=== PATIENT | male | born 1980 | race Caucasian/White ===

== ENCOUNTER 2023-04-12 13:37 | Outpatient (OUT) | payer BC, SELFPAY ==
--- NOTE | 2023-04-12 13:46 | XR_ITS ---
The [place] [id number] Patient Name: FAIZA LOZANO MRN: [id number] date: 1980 Sex: M Assigned Patient Location: RAD Current Patient Location: [facility] Accession/Order Number: [id number] Exam Date: 04/12/2023 14:20 Report Date: 04/12/2023 17:16 At the request of: DAYANA GONZALEZ Procedure: XR shoulder RT min 2V PROCEDURE: XR shoulder RT min 2V COMPARISON: None. HISTORY: Shoulder pain FINDINGS: BONES:No acute fracture or dislocation. Mild degenerative changes acromioclavicular joint with marginal osteophyte formation. Contour deformity of the mid to distal clavicle likely representing a remote healed fracture. The glenohumeral joint is intact SOFT TISSUES:Negative. No visible soft tissue swelling. EFFUSION:None visible. OTHER: Negative. XR/XR shoulder RT min 2V IMPRESSION: No acute abnormality Electronically authenticated by: BRENDA NGUYEN Date: 04/12/2023 17:16
--- NOTE | 2023-04-12 13:46 | XR_ITS ---
The [place] [id number] Patient Name: FAIZA LOZANO MRN: [id number] date: 1980 Sex: M Assigned Patient Location: RAD Current Patient Location: [facility] Accession/Order Number: [id number] Exam Date: 04/12/2023 14:20 Report Date: 04/12/2023 17:14 At the request of: DAYANA GONZALEZ Procedure: XR ankle RT min 3V PROCEDURE: XR ankle RT min 3V, XR foot RT min 3V COMPARISON: None. HISTORY: Ankle pain FINDINGS: BONES:No fracture, acute abnormality, or significant arthropathy. SOFT TISSUES:Negative. No visible soft tissue swelling. EFFUSION:None visible. OTHER: Negative. XR/XR ankle RT min 3V IMPRESSION: No acute abnormality of the ankle or foot Electronically authenticated by: BRENDA NGUYEN Date: 04/12/2023 17:14
--- NOTE | 2023-04-12 13:46 | XR_ITS ---
The [place] [id number] Patient Name: FAIZA LOZANO MRN: [id number] date: 1980 Sex: M Assigned Patient Location: [facility] Current Patient Location: [facility] Accession/Order Number: [id number] Exam Date: 04/12/2023 14:20 Report Date: 04/12/2023 17:20 At the request of: DAYANA GONZALEZ Procedure: XR thoracic spine 3V EXAMINATION: XR lumbar spine min 4V, XR cervical spine 5V, XR thoracic spine 3V HISTORY: Back pain COMPARISON: No relevant comparison available. FINDINGS: BONES: Normal alignment of the cervical, thoracic and lumbar spine with no acute fracture or spondylolisthesis. Minimal degenerative spondylosis. [id number] facet osteoarthropathy. 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 No significant disc height narrowing, subluxation, or endplate abnormality. PARASPINOUS: Negative. No paraspinous abnormality is seen. OTHER: Negative. XR/XR thoracic spine 3V IMPRESSION: Mild degenerative changes of the spine Electronically authenticated by: BRENDA NGUYEN Date: 04/12/2023 17:20
--- NOTE | 2023-04-12 13:47 | XR_ITS ---
The [place] [id number] Patient Name: FAIZA LOZANO MRN: [id number] date: 1980 Sex: M Assigned Patient Location: [facility] Current Patient Location: [facility] Accession/Order Number: [id number] Exam Date: 04/12/2023 14:20 Report Date: 04/12/2023 17:20 At the request of: DAYANA GONZALEZ Procedure: XR lumbar spine min 4V EXAMINATION: XR lumbar spine min 4V, XR cervical spine 5V, XR thoracic spine 3V HISTORY: Back pain COMPARISON: No relevant comparison available. FINDINGS: BONES: Normal alignment of the cervical, thoracic and lumbar spine with no acute fracture or spondylolisthesis. Minimal degenerative spondylosis. Kmro-[id number]-oazlbndg facet osteoarthropathy. 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 No significant disc height narrowing, subluxation, or endplate abnormality. PARASPINOUS: Negative. No paraspinous abnormality is seen. OTHER: Negative. XR/XR lumbar spine min 4V IMPRESSION: Mild degenerative changes of the spine Electronically authenticated by: BRENDA NGUYEN Date: 04/12/2023 17:20
--- NOTE | 2023-04-12 13:47 | XR_ITS ---
The [address] [address] Patient Name: FAIZA LOZANO MRN: [id number] date: 1980 Sex: M Assigned Patient Location: RAD Current Patient Location: [facility] Accession/Order Number: [id number] Exam Date: 04/12/2023 14:20 Report Date: 04/12/2023 17:14 At the request of: DAYANA GONZALEZ Procedure: XR foot RT min 3V PROCEDURE: XR ankle RT min 3V, XR foot RT min 3V COMPARISON: None. HISTORY: Ankle pain FINDINGS: BONES:No fracture, acute abnormality, or significant arthropathy. SOFT TISSUES:Negative. No visible soft tissue swelling. EFFUSION:None visible. OTHER: Negative. XR/XR foot RT min 3V IMPRESSION: No acute abnormality of the ankle or foot Electronically authenticated by: BRENDA NGUYEN Date: 04/12/2023 17:14
--- NOTE | 2023-04-12 13:47 | XR_ITS ---
The [place] [id number] Patient Name: FAIZA LOZANO MRN: [id number] date: 1980 Sex: M Assigned Patient Location: RAD Current Patient Location: [facility] Accession/Order Number: [id number] Exam Date: 04/12/2023 14:20 Report Date: 04/12/2023 17:18 At the request of: DAYANA GONZALEZ Procedure: XR wrist RT min 3V PROCEDURE: XR hand RT min 3V, XR wrist RT min 3V COMPARISON: None. HISTORY: Hand pain FINDINGS: BONES:No fracture, acute abnormality, or significant arthropathy. SOFT TISSUES:Negative. No visible soft tissue swelling. EFFUSION:None visible. OTHER: Negative. XR/XR wrist RT min 3V IMPRESSION: No acute abnormality of the wrist or hand Electronically authenticated by: BRENDA NGUYEN Date: 04/12/2023 17:18
--- NOTE | 2023-04-12 13:47 | XR_ITS ---
The [address] [address] Patient Name: FAIZA LOZANO MRN: [id number] date: 1980 Sex: M Assigned Patient Location: [facility] Current Patient Location: [facility] Accession/Order Number: [id number] Exam Date: 04/12/2023 14:20 Report Date: 04/12/2023 17:20 At the request of: DAYANA GONZALEZ Procedure: XR cervical spine 5V EXAMINATION: XR lumbar spine min 4V, XR cervical spine 5V, XR thoracic spine 3V HISTORY: Back pain COMPARISON: No relevant comparison available. FINDINGS: BONES: Normal alignment of the cervical, thoracic and lumbar spine with no acute fracture or spondylolisthesis. Minimal degenerative spondylosis. Pxre-[id number] facet osteoarthropathy. 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 No significant disc height narrowing, subluxation, or endplate abnormality. PARASPINOUS: Negative. No paraspinous abnormality is seen. OTHER: Negative. XR/XR cervical spine 5V IMPRESSION: Mild degenerative changes of the spine Electronically authenticated by: BRENDA NGUYEN Date: 04/12/2023 17:20
--- NOTE | 2023-04-12 13:47 | XR_ITS ---
The [address] [address] Patient Name: FAIZA LOZANO MRN: [id number] date: 1980 Sex: M Assigned Patient Location: RAD Current Patient Location: [facility] Accession/Order Number: [id number] Exam Date: 04/12/2023 14:20 Report Date: 04/12/2023 17:18 At the request of: DAYANA GONZALEZ Procedure: XR hand RT min 3V PROCEDURE: XR hand RT min 3V, XR wrist RT min 3V COMPARISON: None. HISTORY: Hand pain FINDINGS: BONES:No fracture, acute abnormality, or significant arthropathy. SOFT TISSUES:Negative. No visible soft tissue swelling. EFFUSION:None visible. OTHER: Negative. XR/XR hand RT min 3V IMPRESSION: No acute abnormality of the wrist or hand Electronically authenticated by: BRENDA NGUYEN Date: 04/12/2023 17:18
== END 2023-04-12 13:38 | disposition home or self-care (01) ==
LOC: RAD 13:40
PROVIDERS: Family Provider Family Medicine; PCP Nurse Practitioner; Visit Provider Nurse Practitioner
DX: M54.2 Cervicalgia (principal); M25.511 Pain in right shoulder; M25.571 Pain in right ankle and joints of right foot; M79.671 Pain in right foot; M25.531 Pain in right wrist
CPT/HCPCS: 72050; 72072; 72110; 73030; 73110; 73130; 73610; 73630

== ENCOUNTER 2023-04-13 14:40 | Outpatient (OUT) | payer BC, SELFPAY ==
[2023-04-13 15:43] LABS: Basophils Absolute Auto 0.1 10^3/uL (0.0-0.1); Basophils Percent Auto 0.7 % (0.2-2.0); Eosinophils Absolute Auto 0.3 10^3/uL (0.0-0.7); Eosinophils Percent Auto 3.6 % (0.9-7.0); Hematocrit 40.3 % (42.0-54.0); Hemoglobin 13.2 g/dL (14.0-18.0); Immature Granulocytes Abs Auto 0.02 10^3/uL (0.00-0.03); Immature Granulocytes Pct Auto 0.3 % (0.0-0.5); Lymphocytes Absolute Auto 1.2 10^3/uL (1.2-3.8); Lymphocytes Percent Auto 17.1 % (20.5-60.0); Mean Corpuscular HGB Conc 32.8 g/dL (29.9-35.2); Mean Corpuscular Hemoglobin 28.7 pg (25.9-34.0); Mean Corpuscular Volume 87.6 fL (80.0-94.0); Mean Platelet Volume 8.8 fL (9.5-13.5); Monocytes Absolute Auto 0.5 10^3/uL (0.3-0.8); Monocytes Percent Auto 7.7 % (1.7-12.0); Neutrophils Absolute Auto 4.8 10^3/uL (1.4-6.5); Neutrophils Percent Auto 70.6 % (43.0-75.0); Platelet Count 328 10^3/uL (150-450); Red Cell Distribution Width 12.6 % (11.0-15.0); White Blood Count 6.9 10^3/uL (4.0-11.0)
[2023-04-13 15:45] LABS: Bilirubin Urine NEGATIVE (NEGATIVE); Blood Urine NEGATIVE (NEGATIVE); Clarity Urine CLEAR (CLEAR); Color Urine LT. YELLOW (YELLOW); Glucose Urine UA NEGATIVE (NEGATIVE); Ketones Urine NEGATIVE (NEGATIVE); Leukocyte Esterase Urine NEGATIVE (NEGATIVE); Nitrite Urine NEGATIVE (NEGATIVE); Protein Urine NEGATIVE (NEG/TRACE); Urobilinogen Urine 0.2 EU/dL (0.2-1.0); pH Urine 5.5 (5.0-9.0)
[2023-04-13 15:57] LABS: Alanine Aminotransferase 25 U/L (16-63); Albumin Globulin Ratio 0.9; Albumin Level 3.5 g/dL (3.4-5.0); Alkaline Phosphatase 62 U/L (46-116); Anion Gap 10.4; Aspartate Amino Transferase 17 U/L (15-37); BUN Creatinine Ratio 14.4; Bacteria Urine NONE SEEN #/HPF (NONE SEEN); Bilirubin Total 0.7 mg/dL (0.2-1.0); Carbon Dioxide 28.4 mmol/L (21.0-32.0); Cast Seen? NONE SEEN #/LPF (NONE SEEN); Chloride 106 mmol/L (98-107); Chol HDL Ratio 3.2; Cholesterol 143 mg/dL (<=200); Crystals Seen? None Seen #/HPF (None Seen); Estimated GFR (African America >60 (>=60); Estimated GFR (Non-African Ame >60 (>=60); Glucose 96 mg/dL (74-106); HDL Cholesterol 44 mg/dL (40-60); Mucus Urine NONE SEEN (NONE SEEN); Potassium 3.8 mmol/L (3.5-5.1); RBC Urine 0-2 #/HPF (0-2); Sodium 141 mmol/L (136-145); Squamous Epithelial Cell Urine NONE SEEN #/LPF (NONE/RARE); Thyroid Stimulating Hormone 1.668 uIU/mL (0.358-3.740); Total Protein 7.5 g/dL (6.4-8.2); Triglycerides 95 mg/dL (<=150); Urine Culture Indicated NO; WBC Urine NONE SEEN #/HPF (NONE SEEN)
== END 2023-04-13 14:41 | disposition home or self-care (01) ==
LOC: LAB 14:41
PROVIDERS: Family Provider Family Medicine; PCP Nurse Practitioner; Visit Provider Nurse Practitioner
DX: Z00.00 Encounter for general adult medical examination without abnormal findings (principal)
CPT/HCPCS: 36415; 80053; 80061; 81001; 84443; 85025

== ENCOUNTER 2023-05-17 15:35 | Outpatient (OUT) | payer BC, SELFPAY ==
[2023-05-17 16:28] LABS: Estimated Average Glucose 94 mg/dL; Glycohemoglobin A1C 4.9 % (4.5-6.2)
[2023-05-17 16:33] LABS: Erythrocyte Sedimentation Rate 21 mm/hr (<=15)
[2023-05-19 11:09] LABS: C-Peptide, Serum 9.5 ng/mL (1.1-4.4); Insulin 66.8 uIU/mL (2.6-24.9)
== END 2023-05-17 15:36 | disposition home or self-care (01) ==
LOC: LAB 15:36
PROVIDERS: Family Provider Family Medicine; PCP Nurse Practitioner; Visit Provider Nurse Practitioner
DX: E16.2 Hypoglycemia, unspecified (principal); K50.90 Crohn's disease, unspecified, without complications; R19.7 Diarrhea, unspecified
CPT/HCPCS: 36415; 82533; 83036; 83525; 84681; 85652; 86258; 86364

== ENCOUNTER 2024-01-03 14:33 | Outpatient (OUT) | payer BC, SELFPAY ==
[2024-01-03 15:14] LABS: Basophils Absolute Auto 0.1 10^3/uL (0.0-0.1); Eosinophils Absolute Auto 0.3 10^3/uL (0.0-0.7); Eosinophils Percent Auto 4.8 % (0.9-7.0); Hematocrit 39.7 % (42.0-54.0); Immature Granulocytes Abs Auto 0.01 10^3/uL (0.00-0.03); Immature Granulocytes Pct Auto 0.2 % (0.0-0.5); Lymphocytes Absolute Auto 0.6 10^3/uL (1.2-3.8); Lymphocytes Percent Auto 11.2 % (20.5-60.0); Mean Corpuscular HGB Conc 32.7 g/dL (29.9-35.2); Mean Corpuscular Volume 88.6 fL (80.0-94.0); Mean Platelet Volume 8.7 fL (9.5-13.5); Monocytes Absolute Auto 0.3 10^3/uL (0.3-0.8); Monocytes Percent Auto 5.9 % (1.7-12.0); Neutrophils Percent Auto 76.9 % (43.0-75.0); Platelet Count 312 10^3/uL (150-450); Red Blood Count 4.48 10^6/uL (4.70-6.10); White Blood Count 5.3 10^3/uL (4.0-11.0)
[2024-01-03 15:36] LABS: Alanine Aminotransferase 16 U/L (16-63); Albumin Globulin Ratio 0.8; Albumin Level 3.1 g/dL (3.4-5.0); Alkaline Phosphatase 65 U/L (46-116); Anion Gap 12.8; Aspartate Amino Transferase 16 U/L (15-37); BUN Creatinine Ratio 11.6; Bilirubin Total 0.4 mg/dL (0.2-1.0); C Reactive Protein 0.69 mg/dL (<=0.50); Calcium 8.6 mg/dL (8.5-10.1); Carbon Dioxide 27.8 mmol/L (21.0-32.0); Chloride 107 mmol/L (98-107); Estimated GFR (African America >60 (>=60); Estimated GFR (Non-African Ame >60 (>=60); Glucose 93 mg/dL (74-106); Potassium 3.6 mmol/L (3.5-5.1); Sodium 144 mmol/L (136-145); Total Protein 7.1 g/dL (6.4-8.2)
[2024-01-04 05:08] LABS: HBsAg Screen Negative (Negative); Hep B Core Ab, Tot Negative (Negative); Hepatitis B Surf Ab Quant <3.1 mIU/mL (Immunity>9.9)
[2024-01-05 07:09] LABS: QuantiFERON-TB Gold Plus Negative (Negative)
== END 2024-01-03 14:34 | disposition home or self-care (01) ==
LOC: LAB 14:34
PROVIDERS: Family Provider Family Medicine; PCP Nurse Practitioner; Visit Provider Internal Medicine Gastroenterology
DX: R63.4 Abnormal weight loss (principal); R11.2 Nausea with vomiting, unspecified; Z87.19 Personal history of other diseases of the digestive system; R19.7 Diarrhea, unspecified
CPT/HCPCS: 36415; 80053; 85025; 86140; 86317; 86480; 86704; 87340

== ENCOUNTER 2024-01-05 15:47 | Outpatient (REF) | payer BC, SELFPAY ==
[2024-01-06 15:43] LABS: C. Difficile PCR NEGATIVE (NEGATIVE)
== END 2024-01-05 15:48 | disposition home or self-care (01) ==
LOC: LAB 15:47
PROVIDERS: Family Provider Family Medicine; PCP Nurse Practitioner; Visit Provider Internal Medicine Gastroenterology
DX: R63.4 Abnormal weight loss (principal); R11.2 Nausea with vomiting, unspecified; Z87.19 Personal history of other diseases of the digestive system; R19.7 Diarrhea, unspecified
CPT/HCPCS: 83993; 87045; 87046; 87427; 87493

== ENCOUNTER 2024-06-20 09:03 | Outpatient (OUT) | payer BC, SELFPAY ==
--- NOTE | 2024-06-20 09:08 | US_ITS ---
The [address] [address] Patient Name: FAIZA LOZANO MRN: [id number] date: 1980 Sex: M Assigned Patient Location: US Current Patient Location: [facility]MAIN Accession/Order Number: [id number] Exam Date: 06/20/2024 09:15 Report Date: 06/20/2024 10:34 At the request of: DAYANA GONZALEZ Procedure: US venous doppler LE RT EXAMINATION: US venous doppler LE RT HISTORY: Pain And Swelling Right Lower Extremity COMPARISON: No relevant comparison available. FINDINGS: REGION: Right lower extremity THROMBI: Thrombus within superficial veins of distal medial thigh and proximal medial calf. No deep vein thrombus. COMPRESSIBILITY: Normal compressibility of deep veins. FLOW: Normal waveform and antegrade flow between 5 and 20 cm/s within deep veins. OTHER: None. US/US venous doppler LE RT IMPRESSION: 1. No deep vein thrombus within the right lower extremity. 2. Patient's area of erythema and tenderness correspond to superficial thrombophlebitis. Electronically authenticated by: SHAKIRA MCKINNEY Date: 06/20/2024 10:34
--- OUTSIDE RECORDS SUMMARY | 2024-06-20 09:26 | XMS_ITS | CCD ---
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 Teams (unrecognized sec tion and content) Team Status: Active Member Role Status Dates Verena Rodriguez Primary Care Provider Active Team Status: Active Member Role Status Dates Verena Rodriguez Primary Care Provider Active Sta rt: April 04, 2024 Sonja Xena Ly , DO Attending Provider, Referring Provider Active Start: April 04, 2024 Team Status: Active Member Role Status Dates Verena Rodriguez Primary Care Provider Active Sta rt: May 08, 2024 RUDY Balderas Attending Provider Active S tart: May 08, 2024 Team Status: Inactive Member Role Status Dates Verena Rodriguez Primary Care Provider Active Sta rt: May 26, 2024 End: May 26, 2024 Sonja Xena Ly , DO Attending Provider Active St art: May 26, 2024 End: May 26, 2024 Team Status: Active Member Role Status Dates PHYSICIAN NO FAMILY Primary Care Provider Active Team Status: Inactive Member Role Status Dates PHYSICIAN NO FAMILY Primary Care Provider Active Start: December 13, 2023 End: December 13, 2023 Sonja L Ly , DO Attending Provider Active St art: December 13, 2023 End: December 13, 2023 Team Status: Inactive Member Role Status Dates Sonja L Ly , DO Attending Provider Active St art: January 10, 2024 End: January 10, 2024 Verena Rodriguez Primary Care Provider Active Sta rt: January 10, 2024 End: January 10, 2024 Team Status: Inactive Member Role Status Dates Sonja L Ly , DO Attending Provider Active St art: January 11, 2024 End: January 11, 2024 Verena Rodriguez Primary Care Provider Active Sta rt: January 11, 2024 End: January 11, 2024 Team Status: Active Member Role Status Dates Sonja L Ly , DO Attending Provider, Other Provider Active Start: January 11, 2024 Verena Rodriguez Primary Care Provider Active Sta rt: January 11, 2024 [employer] [place] [employer] Relationship Specialty Start Date End Date Verena Rodriguez NP [address] [place] [phone] PCP - [place] [employer] 06/02/23 Javy Grimm MD [address] [place] [phone] PCP - General Family Medicine 08/19/23 Verena Rodriguez NP [address] [place] [phone] Nurse Practitioner Family Medicine 08/02/22 Verena Rodriguez NP [address] [place] [phone] Nurse Practitioner Family Medicine 08/19/23 [place] [employer] Relationship Specialty Start Date End Date Verena Rodriguez NP [address] [place] [phone] PCP - [place] [employer] 06/02/23 Javy Grimm MD [address] [place] [phone] PCP - General Family Medicine 08/19/23 Verena Rodriguez NP [address] [place] [phone] Nurse Practitioner Family Medicine 08/02/22 Verena Rodriguez NP [address] [place] [phone] Nurse Practitioner Family Medicine 08/19/23 [place] [employer] Relationship Specialty Start Date End Date Verena Rodriguez NP [address] [place] [phone] PCP - [place] [employer] 06/02/23 Javy Grimm MD [address] [place] [phone] PCP - General Family Medicine 08/19/23 Verena Rodriguez NP [address] [place] [phone] Nurse Practitioner Family Medicine 08/02/22 Verena Rodriguez NP [address] [place] [phone] Nurse Practitioner Family Medicine 08/19/23 [place] [employer] Relationship Specialty Start Date End Date Verena Rodriguez NP [address] [place] [phone] PCP - [place] [employer] 06/02/23 Javy Grimm MD [address] [place] [phone] PCP - General Family Medicine 08/19/23 Verena Rodriguez NP [address] [place] [phone] Nurse Practitioner Family Medicine 08/02/22 Verena Rodriguez NP [address] [place] [address] Nurse Practitioner Family Medicine 08/19/23 Goals (unrecognized section and content) Goals may be documented in a n alternate section (unrecognized sect ion and content) No Status Records FoundNo Status Records Found INFORMATION SOURCE (unrecogn ized section and content) DATE CREATED AUTHOR 04/16/2024 [facility] DATE CREATED AUTHOR AUTHOR'S ORGANIZ ATION 06/02/2024 [facility] FOR RECORDS PERTAINING TO PATIENTS WHO ARE OR HAVE BEEN ENROLLED IN A CHEMICAL DEPENDENCY/SUBSTANCEABUSE PROGRAM, SOME INFORMATION MAY BE OMITTED. This clinical summary was aggregated from multiple sources. Caution should be exercised in using it in the provision of clinical care. This summary normalizes information from multiple sources, and as a consequence, information in this document may materially change the coding, format and clinical context of patient data. In addition, data may be omitted in some cases. CLINICAL DECISIONS SHOULD BE BASED ON THE PRIMARY CLINICAL RECORDS. [facility]. provides no warranty or guarantee of the accuracy or completeness of information in this document.
== END 2024-06-20 09:04 | disposition home or self-care (01) ==
LOC: US 09:04
PROVIDERS: Family Provider Family Medicine; PCP Nurse Practitioner; Visit Provider Nurse Practitioner
DX: I80.201 Phlebitis and thrombophlebitis of unspecified deep vessels of right lower extremity (principal); M79.604 Pain in right leg; M79.89 Other specified soft tissue disorders
CPT/HCPCS: 93971

== ENCOUNTER 2024-06-20 10:12 | Emergency (ER) | payer BC, SELFPAY ==
[2024-06-20 10:20] VITALS: BP 138/75; PULSE 96; TEMP 37.5; O2SAT 98; BMI 24.7
--- NOTE | 2024-06-20 11:27 | ED.GENADUL1 ---
HPI HPI - General Adult General Chief complaint: Extremity Problem, Nontraumatic Stated complaint: LOWER EXTREMITY PAIN Time Seen by Provider: 06/20/24 10:21 Source: patient Mode of arrival: walk-in Limitations: no limitations History of Present Illness HPI narrative: Patient presents with a 6-day history of pain in the right leg and over the last few days has developed redness. He had an outpatient ultrasound study done which reported superficial thrombophlebitis. He also has a history of ulcerative colitis and states that he has been experiencing some recent abdominal pain and couple episodes of vomiting today. Nausea is for the most part improved. He has moved his bowels twice today. Related Data Previous Rx's ?Medication ?Instructions ?Recorded dicyclomine 20 mg tablet 20 mg PO TID PRN abdominal pain 06/20/24 #14 tabs ondansetron 4 mg disintegrating 4 mg PO Q6H PRN nausea and 06/20/24 tablet vomiting #10 tabs Allergies Allergy/AdvReac Type Severity Reaction Status Date / Time nitrofurantoin (From AdvReac Intermediate Unknown Verified 06/20/24 10:20 Macrobid) Opioid HPI Opioid Management Most Recent Opioid Data: No Data to Display Review of Systems ROS Constitutional Denies: fever Ears, nose, mouth, and throat Denies: throat pain Cardiovascular Denies: chest pain or palpitations Respiratory Denies: shortness of breath or cough Gastrointestinal Reports: abdominal pain, nausea, vomiting and diarrhea; Denies: blood in stool Genitourinary Denies: painful urination Integumentary/Breast Denies: rash or itching Neurological Denies: headache Psychiatric Denies: anxiety Endocrine Denies: excessive urination or excessive thirst Hematologic/Lymphatic Denies: easy bruising PFSH PFSH Social History Little interest or pleasure in doing things: not at all Feeling down, depressed, or hopeless: not at all Exam Narrative Exam Narrative: Patient is afebrile with stable vital signs and is nondistressed. Skin is warm and dry. Lung sounds are clear to auscultation bilaterally. Heart has regular rate and rhythm. Abdomen soft and fairly nontender with hypoactive bowel sounds and no masses. He has redness over the medial aspect of the mid right thigh extending down to the mid right calf with overlying warmth and slight tenderness. Vascular function is intact distally in the right lower extremity. Constitutional Vital Signs, click to edit/add: Last Vital Signs Temp 99.5 F 06/20/24 10:20 Pulse 88 06/20/24 11:46 Resp 18 06/20/24 11:46 BP 128/88 06/20/24 11:46 Pulse Ox 98 06/20/24 11:46 O2 Del Method Room Air 06/20/24 10:20 Course Vital Signs Vital signs: Vital Signs Temperature 99.5 F 06/20/24 10:20 Pulse Rate 96 H 06/20/24 10:20 Respiratory Rate 18 06/20/24 10:20 Blood Pressure 138/75 06/20/24 10:20 Pulse Oximetry 98 06/20/24 10:20 Oxygen Delivery Method Room Air 06/20/24 10:20 Temperature 99.5 F 06/20/24 10:20 Pulse Rate 88 06/20/24 11:46 Respiratory Rate 18 06/20/24 11:46 Blood Pressure 128/88 06/20/24 11:46 Pulse Oximetry 98 06/20/24 11:46 Oxygen Delivery Method Room Air 06/20/24 10:20 Medical Decision Making MDM Narrative Medical decision making narrative: Had an outpatient ultrasound study of his right leg today which showed superficial thrombophlebitis. He was sent to the ED for further management. He has ulcerative colitis and is on steroids and immune therapy likely making him prone to coagulopathy. He is advised to use topical Voltaren gel and use thigh-high stockings and apply heat to the area and seek early follow-up. He was also experiencing some abdominal discomfort due to ulcerative colitis but on examination does not have any suggestion of an acute abdomen. He is placed on Bentyl and Zofran to help with abdominal pain and nausea. Early follow-up with PCP is advised and he may return anytime for worsening symptoms. Differential Diagnosis Differential Diagnosis: Superficial thrombophlebitis, DVT, cellulitis right leg, ulcerative colitis Medical Records Medical records reviewed: Yes I reviewed the patient's medical records Imaging Data Venous US: Attestation: I have reviewed the pertinent imaging results. Discharge Plan Discharge Chief Complaint: Extremity Problem, Nontraumatic Clinical Impression: Superficial thrombophlebitis Qualifiers: Superficial thrombophlebitis-Involved body area: lower extremity Laterality: right Qualified Code(s): I80.01 - Phlebitis and thrombophlebitis of superficial vessels of right lower extremity Patient Disposition: Home, Self-Care Time of Disposition Decision: 11:29 Condition: Good Mode of Transportation: Private Vehicle Prescriptions / Home Meds: New dicyclomine 20 mg tablet 20 mg PO TID PRN (Reason: abdominal pain) Qty: 14 0RF ondansetron 4 mg tablet,disintegrating 4 mg PO Q6H PRN (Reason: nausea and vomiting) Qty: 10 0RF Print Language: Indonesian Instructions: Superficial Thrombophlebitis (ED) Additional Instructions: Apply Voltaren gel to affected area on right leg 3 times a day. follow-up with your physician before the weekend. Return for worsening symptoms. Referrals: Kylee Rodriguez NP [Primary Care Provider] - 1 week Discharge Date/Time: 06/20/24 11:47
[2024-06-20 11:46] VITALS: BP 128/88; PULSE 88; O2SAT 98
== END 2024-06-20 11:47 | disposition home or self-care (01) ==
PROVIDERS: Emergency Provider Emergency Medicine; Family Provider Family Medicine; PCP Nurse Practitioner
DX: I80.01 Phlebitis and thrombophlebitis of superficial vessels of right lower extremity (principal)
CPT/HCPCS: 93971; 99283

== ENCOUNTER 2024-06-20 19:43 | Inpatient (IN) | payer BC, SELFPAY ==
--- OUTSIDE RECORDS SUMMARY | 2024-06-20 19:53 | XMS_ITS | CCD ---
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 AUTHOR'S ORGANIZ ATION 06/02/2024 [facility] FOR RECORDS PERTAINING TO PATIENTS WHO ARE [...] BE BASED ON THE PRIMARY CLINICAL RECORDS. [facility] [employer] [facility]. provides no warranty or guarantee of the accuracy or completeness of information in this document.
[2024-06-20 20:11] VITALS: BP 131/84; PULSE 102; TEMP 37.6; O2SAT 97
--- NOTE | 2024-06-20 20:17 | ED.ABDPAIN1 ---
HPI - Abdominal Pain General Chief Complaint: Abdominal Pain Stated Complaint: abd pain Time Seen by Provider: 06/20/24 20:13 Source: patient Mode of arrival: Wheelchair Limitations: no limitations History of Present Illness HPI narrative: patient presents complaining of abdominal pain. History of Crohn disease. Is on Stelara . States developed pain around 4AM. Did have small BM today after pain started. Was seen here in the ER earlier today for thrombophlebitis-superficial. At that time did mention his abdominal pain and was treated with Bentyl which he feels did not help much. Now returns complaining of increasing right sided pain. No fever. No blood per rectum. Related Data Home Medications ?Medication ?Instructions ?Recorded ?Confirmed fluoxetine 20 mg capsule 20 mg PO DAILY 06/20/24 06/21/24 olanzapine 5 mg tablet 5 mg PO DAILY 06/20/24 06/21/24 ustekinumab 90 mg/mL subcutaneous 90 mg subcut .[id number] 06/20/24 06/21/24 syringe (Stelara) Previous Rx's ?Medication ?Instructions ?Recorded dicyclomine 20 mg tablet 20 mg PO TID PRN abdominal pain 06/20/24 #14 tabs ondansetron 4 mg disintegrating 4 mg PO Q6H PRN nausea and 06/20/24 tablet vomiting #10 tabs ciprofloxacin HCl 500 mg tablet 500 mg PO BID 7 days #14 tabs 06/23/24 metronidazole 250 mg tablet 250 mg PO Q8H 7 days #21 tabs 06/23/24 prednisone 5 mg tablet See Rx Instructions PO .COMPLEX 06/23/24 #252 tabs Allergies Allergy/AdvReac Type Severity Reaction Status Date / Time sulfamethoxazole (From Allergy Unknown Unknown Verified 06/20/24 20:16 Bactrim) trimethoprim (From Bactrim) Allergy Unknown Unknown Verified 06/20/24 20:16 Review of Systems ROS Status of ROS 10 or more systems reviewed and unremarkable except as noted in history and below PFSH PFS Medical History (Updated 06/24/24 @ 00:00 by ) Inflammatory bowel disease (Crohn's disease) ?K50.90 - Crohn's disease, unspecified, without complications (ICD-10) Anxiety ?F41.9 - Anxiety disorder, unspecified (ICD-10) Family History Other Family history of CHF (congestive heart failure) Family history of diabetes mellitus Family history of myocardial infarction Social History Within the past year, how often did you have a drink containing alcohol: never Score interpretation: A score less than 4 is consistent with normal alcohol consumption. Smoking status: Never smoker Non-prescribed substance use: cannabis (any form) Highest level of school completed/degree received: high school graduate Are you now , , , , never or living with a partner: Little interest or pleasure in doing things: not at all Feeling down, depressed, or hopeless: not at all Do you think of yourself as: straight/heterosexual Gender Identity: male Exam Constitutional Vital Signs, click to edit/add: Last Vital Signs Temp 97.9 F 06/23/24 08:00 Pulse 52 L 06/23/24 09:50 Resp 18 06/23/24 08:00 BP 118/73 06/23/24 08:00 Pulse Ox 95 06/23/24 10:59 O2 Del Method Room Air 06/23/24 10:59 Common normals: average body habitus, oriented x3, healthy appearing, alert and well nourished General appearance: in distress HENOK Common normals: normocephalic and head/scalp atraumatic Eye Common normals: PERRL and EOMs intact bilaterally Respiratory Common normals: normal respiratory effort, no retractions, no use of accessory muscles and clear to auscultation bilaterally Cardio Common normals: regular rate, regular rhythm, S1 normal heart sound and S2 normal heart sound GI Other: abdomen not distended. Mild-mod right sided abdominal tenderness. involuntary guarding. Abdominal wall tenses up Extremity Common normals: normal to inspection and full ROM Neuro Common normals: oriented x3, CN's II-XII intact bilaterally and moves all extremities Psych Appearance: grossly normal Course Course Hospital Course: Patient is a 44 y.o White male with history of Crohn's disease that follows with Dr. Sellers GI at [facility]. He is currently taking Stelara x 2 doses. Presented to the ER with increase RLQ abdominal pain. CT scan consistent with active inflammatory bowel changes in the ileum, normal appendix and no other acute changes. WBC's 18.9, Hb 13.6, low grade fever and hypotension 106/68. Elevated lactate 2.5. Patient denies fevers or chills, no blood in stool. Has been having bowel movements with some pain but this morning no pain. No urinary complaints. He was NPO and getting IV solumedrol 40mg q6hrs. His pain is dull in the right lower quadrant so I also added IV Cipro and Flagyl. Patient remained afebrile. At the time of discharge patient is tolerating clear liquids and his PO home medications. Pain is mostly resolved. I have personally spoke with Dr. Sellers on the phone and she would like a long predisone taper starting at 40mg daily for the first week and decreasing by 5mg each week until done, total of 8 weeks. He will also take and complete Flagyl 250mg Q8 hours x 7 days and Cipro 500mg BID x 7 days. WBC's are 8.9,k Hb 10.4, Cr 0.9, lactate 1.4. He will be discharged home today in stable condition. Dr. Sellers's office will contact patient for follow up in 2 weeks. He may return to the ER with any worsening signs or symptoms. Dr. Sellers also requested patient be on Low residual diet. Vital Signs Vital signs: Vital Signs Temperature 99.6 F 06/20/24 20:11 Pulse Rate 102 H 06/20/24 20:11 Respiratory Rate 20 06/20/24 20:11 Blood Pressure 131/84 06/20/24 20:11 Pulse Oximetry 97 06/20/24 20:11 Oxygen Delivery Method Room Air 06/20/24 20:11 Temperature 97.9 F 06/23/24 08:00 Pulse Rate 52 L 06/23/24 09:50 Respiratory Rate 18 06/23/24 08:00 Blood Pressure 118/73 06/23/24 08:00 Pulse Oximetry 95 06/23/24 10:59 Oxygen Delivery Method Room Air 06/23/24 10:59 MDM - Abdominal Pain MDM Narrative Medical decision making narrative: patient with history of Crohns followed by GI Dr Sellers at [facility]. Patient presents with right sided abdominal pain. CT with findings of active inflammatory disease but no evidence of obstruction. Discussed with Dr Sellers at [facility] and she was willing to accept the patient in transfer but there are no beds available until tomorrow. She recommended treating him with prednisone 60mg daily for next 3 days and then tapering the prednisone. Admission planned for pain controlled as he has received several doses of Fentanyl in the department with some improvement in the pain. Patient given dose of Solumedrol 125 in the ED Hospitalist contacted for obs admission here at [facility]. Lab Data Labs: Lab Results 06/20/24 06/21/24 06/21/24 Range/Units 20:20 00:05 00:40 WBC 15.1 H (4.0-11.0) 10^3/uL RBC 5.03 (4.70-6.10) 10^6/uL Hgb 15.0 (14.0-18.0) g/dL Hct 44.7 (42.0-54.0) % MCV 88.9 (80.0-94.0) fL MCH 29.8 (25.9-34.0) pg MCHC 33.6 (29.9-35.2) g/dL RDW 13.2 (11.0-15.0) % Plt Count 322 (150-450) 10^3/uL MPV 9.1 L (9.5-13.5) fL Neut % (Auto) 91.4 H (43.0-75.0) % Lymph % (Auto) 5.2 L (20.5-60.0) % Terrell % (Auto) 2.7 (1.7-12.0) % Eos % (Auto) 0.1 L (0.9-7.0) % Baso % (Auto) 0.3 (0.2-2.0) % Neut # (Auto) 13.8 H (1.4-6.5) 10^3/uL Lymph # (Auto) 0.8 L (1.2-3.8) 10^3/uL Terrell # (Auto) 0.4 (0.3-0.8) 10^3/uL Eos # (Auto) 0.0 (0.0-0.7) 10^3/uL Baso # (Auto) 0.1 (0.0-0.1) 10^3/uL Abs Immat Gran (auto) 0.04 H (0.00-0.03) 10^3/uL Seg Neuts % (Manual) (43.0-75.0) Band Neutrophils % (0-5) % Lymphocytes % (Manual) (20.5-60.0) % Monocytes % (Manual) (1.7-12.0) % Eosinophils % (Manual) (0.9-7.0) % Basophils % (Manual) (0.2-2.0) % Imm/Tot Granulo (auto) 0.3 (0.0-0.5) % Neutrophils # (Manual) (1.4-6.5) 10^3/uL Band Neutrophils # (0.0-0.3) 10^3/uL Lymphocytes # (Manual) (1.20-3.80) 10^3/uL Monocytes # (Manual) (0.30-0.80) 10^3/uL Eosinophils # (Manual) (0.00-0.70) 10^3/uL Basophils # (Manual) (0.00-0.10) 10^3/uL Sodium 139 (136-145) mmol/L Potassium 4.0 (3.5-5.1) mmol/L Chloride 101 (98-107) mmol/L Carbon Dioxide 25.0 (21.0-32.0) mmol/L Anion Gap 17.0 BUN 20.0 H (7.0-18.0) mg/dL Creatinine 1.43 H (0.70-1.30) mg/dL Est GFR ( Amer) >60 (>=60 mL/min/1.73m^2) Est GFR (Non-Af Amer) 53 L (>=60 mL/min/1.73m^2) BUN/Creatinine Ratio 14.0 Glucose 142 H (74-106) mg/dL Lactate 3.4 H* 2.5 H* (0.4-2.0) mmol/L Calcium 9.1 (8.5-10.1) mg/dL Magnesium (1.8-2.4) mg/dL Total Bilirubin 2.6 H (0.2-1.0) mg/dL AST 21 (15-37) U/L ALT 24 (16-63) U/L Alkaline Phosphatase 65 (46-116) U/L Troponin I High Sens <4.0 L (4.0-76.1) pg/mL Total Protein 7.4 (6.4-8.2) g/dL Albumin 3.2 L (3.4-5.0) g/dL Globulin 4.2 g/dL Albumin/Globulin Ratio 0.8 Lipase 28.0 (16.0-77.0) U/L Urine Color Yellow (YELLOW) Urine Clarity Clear (CLEAR) Urine pH 8.0 (5.0-9.0) Ur Specific [place] 1.010 (1.005-1.025) Urine Protein Trace (NEG/TRACE) mg/dL Urine Glucose (UA) Negative (NEGATIVE) mg/dL Urine Ketones Negative (NEGATIVE) mg/dL Urine Occult Blood Negative (NEGATIVE) Urine Nitrite Negative (NEGATIVE) Urine Bilirubin Negative (NEGATIVE) Urine Urobilinogen 0.2 (0.2-1.0) EU/dL Ur Leukocyte Esterase Negative (NEGATIVE) 06/21/24 06/22/24 Range/Units 05:02 08:21 WBC 18.9 H 11.8 H (4.0-11.0) 10^3/uL RBC 4.56 L 3.75 L (4.70-6.10) 10^6/uL Hgb 13.6 L 11.3 L (14.0-18.0) g/dL Hct 40.9 L 34.1 L (42.0-54.0) % MCV 89.7 90.9 (80.0-94.0) fL MCH 29.8 30.1 (25.9-34.0) pg MCHC 33.3 33.1 (29.9-35.2) g/dL RDW 13.4 13.4 (11.0-15.0) % Plt Count 267 214 (150-450) 10^3/uL MPV 9.2 L 9.0 L (9.5-13.5) fL Neut % (Auto) 94.2 H (43.0-75.0) % Lymph % (Auto) 2.3 L (20.5-60.0) % Terrell % (Auto) 2.9 (1.7-12.0) % Eos % (Auto) 0.0 L (0.9-7.0) % Baso % (Auto) 0.1 L (0.2-2.0) % Neut # (Auto) 11.1 H (1.4-6.5) 10^3/uL Lymph # (Auto) 0.3 L (1.2-3.8) 10^3/uL Terrell # (Auto) 0.3 (0.3-0.8) 10^3/uL Eos # (Auto) 0.0 (0.0-0.7) 10^3/uL Baso # (Auto) 0.0 (0.0-0.1) 10^3/uL Abs Immat Gran (auto) 0.06 H (0.00-0.03) 10^3/uL Seg Neuts % (Manual) 98.0 H (43.0-75.0) Band Neutrophils % 1.0 (0-5) % Lymphocytes % (Manual) 0.0 L (20.5-60.0) % Monocytes % (Manual) 0.0 L (1.7-12.0) % Eosinophils % (Manual) 0.0 L (0.9-7.0) % Basophils % (Manual) 0.0 L (0.2-2.0) % Imm/Tot Granulo (auto) 0.5 (0.0-0.5) % Neutrophils # (Manual) 18.52 H (1.4-6.5) 10^3/uL Band Neutrophils # 0.2 (0.0-0.3) 10^3/uL Lymphocytes # (Manual) 0.00 L (1.20-3.80) 10^3/uL Monocytes # (Manual) 0.00 L (0.30-0.80) 10^3/uL Eosinophils # (Manual) 0.00 (0.00-0.70) 10^3/uL Basophils # (Manual) 0.00 (0.00-0.10) 10^3/uL Sodium 141 138 (136-145) mmol/L Potassium 4.6 4.5 (3.5-5.1) mmol/L Chloride 105 104 (98-107) mmol/L Carbon Dioxide 24.2 25.7 (21.0-32.0) mmol/L Anion Gap 16.4 12.8 BUN 16.0 18.0 (7.0-18.0) mg/dL Creatinine 1.19 1.08 (0.70-1.30) mg/dL Est GFR ( Amer) >60 >60 (>=60 mL/min/1.73m^2) Est GFR (Non-Af Amer) >60 >60 (>=60 mL/min/1.73m^2) BUN/Creatinine Ratio 13.4 16.7 Glucose 110 H 106 (74-106) mg/dL Lactate 1.4 (0.4-2.0) mmol/L Calcium 8.4 L 8.4 L (8.5-10.1) mg/dL Magnesium 1.7 L 2.1 (1.8-2.4) mg/dL Total Bilirubin 3.1 H 3.7 H (0.2-1.0) mg/dL AST 17 16 (15-37) U/L ALT 24 17 (16-63) U/L Alkaline Phosphatase 52 45 L (46-116) U/L Troponin I High Sens (4.0-76.1) pg/mL Total Protein 6.5 6.1 L (6.4-8.2) g/dL Albumin 2.7 L 2.2 L (3.4-5.0) g/dL Globulin 3.8 3.9 g/dL Albumin/Globulin Ratio 0.7 0.6 Lipase (16.0-77.0) U/L Urine Color (YELLOW) Urine Clarity (CLEAR) Urine pH (5.0-9.0) Ur Specific [place] (1.005-1.025) Urine Protein (NEG/TRACE) mg/dL Urine Glucose (UA) (NEGATIVE) mg/dL Urine Ketones (NEGATIVE) mg/dL Urine Occult Blood (NEGATIVE) Urine Nitrite (NEGATIVE) Urine Bilirubin (NEGATIVE) Urine Urobilinogen (0.2-1.0) EU/dL Ur Leukocyte Esterase (NEGATIVE) Imaging Data Chest x-ray: Radiologist's impression: ITS Impressions Abdomen/Pelvis CT 06/20/24 20:18 IMPRESSION: CT evidence of active inflammatory breast disease as described above. Electronically authenticated by: STEVE ODONNELL Date: 06/20/2024 23:22 ADDENDUM: 06/21/24 1208 IMPRESSION: CT evidence of active inflammatory breast disease as described above. Electronically authenticated by: STEVE ODONNELL Date: 06/21/2024 11:49 Discharge Plan Discharge Chief Complaint: Abdominal Pain Clinical Impression: Inflammatory bowel disease (Crohn's disease), Abdominal pain Patient Disposition: Admitted as Observation Discharge Date/Time: 06/21/24 00:25
--- NOTE | 2024-06-20 20:18 | CT_ITS ---
[address] [address] Patient Name: FAIZA LOZANO MRN: [id number] date: 1980 Sex: M Assigned Patient Location: ER Current Patient Location: Accession/Order Number: [id number] Exam Date: 06/20/2024 20:35 Report Date: 06/20/2024 23:22 At the request of: KARYN CHAVIRA Procedure: CT abdomen pelvis w con EXAM: CT abdomen pelvis w con HISTORY: right sided abdominal pain. History of Crohns COMPARISON: None. TECHNIQUE: Axial CT imaging was performed through the abdomen and pelvis with intravenous contrast. Multiplanar reformats were performed. Dose reduction techniques were achieved by using automated exposure control and/or adjustment of mA and/or kV according to patient size and/or use of iterative reconstruction technique. FINDINGS: Lung bases: Lung bases are clear. No pleural effusion. GI upper: Unremarkable. Liver: Normal size and contour. Gallbladder: No significant abnormality. No cholelithiasis. Biliary system: No intra or extrahepatic biliary ductal dilatation. Spleen: Normal size. Pancreas: Unremarkable. Adrenal glands: Normal adrenal glands. Kidneys/ureters: Normal contours. No hydronephrosis. No nephrolithiasis or ureterolithiasis. Vessels: No aneurysm. Lymph Nodes: No lymphadenopathy. Small bowel: Moderately dilated ileum, containing fluid with mucosal enhancement. There is severe wall thickening and focus of enhancement of the neoterminal ileum. The jejunum is collapsed with mucosal enhancement. Findings are representing active inflammatory bowel disease. No definite transition point is noted to suggest bowel obstruction. Colon: No wall thickening or dilatation. Fluid is noted throughout the colon. Appendix: No findings of appendicitis. Peritoneal cavity: No free fluid or pneumoperitoneum. Lower : Unremarkable. Bones: No acute bony abnormality. Soft tissues: No acute finding. Additional findings: None. CT/CT abdomen pelvis w con IMPRESSION: CT evidence of active inflammatory breast disease as described above. Electronically authenticated by: STEVE ODONNELL Date: 06/20/2024 23:22
[2024-06-20 20:30] LABS: Basophils Absolute Auto 0.1 10^3/uL (0.0-0.1); Basophils Percent Auto 0.3 % (0.2-2.0); Eosinophils Percent Auto 0.1 % (0.9-7.0); Hematocrit 44.7 % (42.0-54.0); Immature Granulocytes Abs Auto 0.04 10^3/uL (0.00-0.03); Immature Granulocytes Pct Auto 0.3 % (0.0-0.5); Lymphocytes Absolute Auto 0.8 10^3/uL (1.2-3.8); Lymphocytes Percent Auto 5.2 % (20.5-60.0); Mean Corpuscular HGB Conc 33.6 g/dL (29.9-35.2); Mean Corpuscular Hemoglobin 29.8 pg (25.9-34.0); Mean Corpuscular Volume 88.9 fL (80.0-94.0); Mean Platelet Volume 9.1 fL (9.5-13.5); Monocytes Absolute Auto 0.4 10^3/uL (0.3-0.8); Monocytes Percent Auto 2.7 % (1.7-12.0); Neutrophils Absolute Auto 13.8 10^3/uL (1.4-6.5); Neutrophils Percent Auto 91.4 % (43.0-75.0); Platelet Count 322 10^3/uL (150-450); Red Blood Count 5.03 10^6/uL (4.70-6.10); Red Cell Distribution Width 13.2 % (11.0-15.0); White Blood Count 15.1 10^3/uL (4.0-11.0)
[2024-06-20] MEDS: FENTANYL CITRATE/PF 100 MCG/2 ML VIAL 50 MCG IV (20:31)
[2024-06-20] MEDS: 0.9 % SODIUM CHLORIDE 1,000 ML 999 ML IV ×2 (20:33→22:25)
[2024-06-20 20:45] LABS: Alanine Aminotransferase 24 U/L (16-63); Albumin Globulin Ratio 0.8; Albumin Level 3.2 g/dL (3.4-5.0); Alkaline Phosphatase 65 U/L (46-116); Aspartate Amino Transferase 21 U/L (15-37); Bilirubin Total 2.6 mg/dL (0.2-1.0); Calcium 9.1 mg/dL (8.5-10.1); Chloride 101 mmol/L (98-107); Estimated GFR (African America >60 (>=60 mL/min/1.73m^2); Estimated GFR (Non-African Ame 53 (>=60 mL/min/1.73m^2); Globulin 4.2 g/dL; Glucose 142 mg/dL (74-106); Sodium 139 mmol/L (136-145); Total Protein 7.4 g/dL (6.4-8.2)
[2024-06-20 20:50] LABS: Troponin I High Sensitivity <4.0 pg/mL (4.0-76.1)
[2024-06-20 20:51] LABS: Lactate/Lactic Acid 3.4 mmol/L (0.4-2.0)
[2024-06-20 21:23] VITALS: O2SAT 98
[2024-06-20] MEDS: FENTANYL CITRATE/PF 100 MCG/2 ML VIAL IV (21:36)
[2024-06-21] VITALS (20 sets, daily range): BP systolic 95–132; BP diastolic 56–81; PULSE 68–112; TEMP 36.8–37.7; O2SAT 91–98; BMI 24.3
[2024-06-21] MEDS: FENTANYL CITRATE/PF 100 MCG/2 ML VIAL IV
[2024-06-21] MEDS: METHYLPREDNISOLONE SOD SUCC PF 125 MG/2 ML VIAL IVP
[2024-06-21 00:20] LABS: Bilirubin Urine NEGATIVE (NEGATIVE); Blood Urine NEGATIVE (NEGATIVE); Clarity Urine CLEAR (CLEAR); Color Urine YELLOW (YELLOW); Glucose Urine UA NEGATIVE (NEGATIVE); Ketones Urine NEGATIVE (NEGATIVE); Leukocyte Esterase Urine NEGATIVE (NEGATIVE); Nitrite Urine NEGATIVE (NEGATIVE); Protein Urine TRACE mg/dL (NEG/TRACE); Urobilinogen Urine 0.2 EU/dL (0.2-1.0)
[2024-06-21 00:22] LABS: Urine Microscopic Indicated NO
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
[2024-06-21] MEDS: lidocaine HCL 15 ML, MAG HYDROX/ALUMINUM HYD/SIMETH 30 ML, HYOSCYAMINE SULFATE 0.25 MG PO (01:21)
[2024-06-21] MEDS: HYDROMORPHONE HCL 1 MG/ML CARTRIDGE IVP ×3 (01:23→23:04)
[2024-06-21] MEDS: 0.9 % SODIUM CHLORIDE 1,000 ML 100 ML IV ×3 (01:24→21:03)
[2024-06-21 01:35] LABS: Lactate/Lactic Acid 2.5 mmol/L (0.4-2.0)
[2024-06-21 05:51] LABS: Hematocrit 40.9 % (42.0-54.0); Hemoglobin 13.6 g/dL (14.0-18.0); Mean Corpuscular HGB Conc 33.3 g/dL (29.9-35.2); Mean Corpuscular Hemoglobin 29.8 pg (25.9-34.0); Mean Corpuscular Volume 89.7 fL (80.0-94.0); Mean Platelet Volume 9.2 fL (9.5-13.5); Platelet Count 267 10^3/uL (150-450); Red Blood Count 4.56 10^6/uL (4.70-6.10); Red Cell Distribution Width 13.4 % (11.0-15.0); White Blood Count 18.9 10^3/uL (4.0-11.0)
[2024-06-21 06:25] LABS: Alanine Aminotransferase 24 U/L (16-63); Albumin Globulin Ratio 0.7; Albumin Level 2.7 g/dL (3.4-5.0); Alkaline Phosphatase 52 U/L (46-116); Anion Gap 16.4; Aspartate Amino Transferase 17 U/L (15-37); BUN Creatinine Ratio 13.4; Bilirubin Total 3.1 mg/dL (0.2-1.0); Calcium 8.4 mg/dL (8.5-10.1); Carbon Dioxide 24.2 mmol/L (21.0-32.0); Chloride 105 mmol/L (98-107); Estimated GFR (African America >60 (>=60 mL/min/1.73m^2); Estimated GFR (Non-African Ame >60 (>=60 mL/min/1.73m^2); Globulin 3.8 g/dL; Glucose 110 mg/dL (74-106); Magnesium 1.7 mg/dL (1.8-2.4); Potassium 4.6 mmol/L (3.5-5.1); Sodium 141 mmol/L (136-145); Total Protein 6.5 g/dL (6.4-8.2)
[2024-06-21 06:27] LABS: Band Neutrophils Absolute 0.2 10^3/uL (0.0-0.3); Segmented Neut Absolute Manual 18.52 10^3/uL (1.4-6.5)
[2024-06-21] MEDS: ENOXAPARIN SODIUM 40 MG/0.4 ML SYRINGE SUBQ (08:25)
[2024-06-21] MEDS: METHYLPREDNISOLONE SOD SUCC PF 40 MG/ML VIAL IVP ×3 (08:25→23:04)
--- NOTE | 2024-06-21 08:33 | PM.HP ---
HPI H&P: HPI History of Present Illness Chief complaint: abd pain Narrative: Patient is a 44 y.o White male with history of Crohn's disease that follows with Dr. Sellers, GI at [facility]. He is currently taking Stelara. Yesterday presented to the ER with increase RLQ abdominal pain. CT scan consistent with active inflammatory bowel changes. WBC's 18.9, Hb 13.6, low grade fever and hypotension 106/68. Elevated lactate 2.5. Dr. Sellers accepted the patient but no bed available. She gave ER physician instructions to treat with prednisone 60mg daily x 3 and taper. Patient denies fevers or chills, no blood in stool. Has been having bowel movements. No urinary complaints. Was given Bentyl in the ER without relief, did get some Fentanyl for pain control. He was admitted to the hospital service for further plan of care. Overnight he has been doing well. Currently NPO and getting IV solumedrol. His pain is dull in the right lower quadrant. No fevers or chills. History of bowel resection in 2007 for perforated bowel. He has not been admitted recently and just started Stelara treatments, has had 2 total. He says he stays NPO at home for 2-3 days and this usually helps his symptoms to dissipate. Overall patient feels better than last night but also has not eaten. Opioid HPI Opioid Management Most Recent Pain and Opioid Data: Last Pain Scale 3 06/21/24 08:00 06/21/24 Last Pain Assessment 06/21/24 12:00 Last MAR Pain Assessment 06/21/24 05:10 Last ORT Total Score 1 06/21/24 01:03 06/21/24 Last ORT Risk Category Low Risk 06/21/24 01:03 06/21/24 Review of Systems ROS Narrative ROS: a complete review of systems were reviewed with patient and are positive as below or listed in History of Chief Complaint. General: no fever, chills, night sweats Head: no headache, trauma, visual changes, nausea or vomiting Skin: no reported rashes, itching or sores Eyes: no blurriness of vision Ears: no reported hearing loss, vertigo, earache, or tinnitus Throat: no sore throat, hoarseness, swelling of neck, or tongue pain Heart: no chest pain Lungs: no shortness of breath or cough GI: diarrhea and abdominal pain, no vomiting/nausea Urinary: no urinary urgency, frequency or pain Neuro: no numbness or tingling HEM: no bleeding issues or bruising ENDO: no thyroid problems Psych: anxiety and depression [facility] Medical History (Updated 06/21/24 @ 08:39 by Barbara Ayala DO) Inflammatory bowel disease (Crohn's disease) ?K50.90 - Crohn's disease, unspecified, without complications (ICD-10) Anxiety ?F41.9 - Anxiety disorder, unspecified (ICD-10) Family History Other Family history of CHF (congestive heart failure) Family history of diabetes mellitus Family history of myocardial infarction Social History Within the past year, how often did you have a drink containing alcohol: never Score interpretation: A score less than 4 is consistent with normal alcohol consumption. Smoking status: Never smoker Non-prescribed substance use: cannabis (any form) Highest level of school completed/degree received: high school graduate Are you now , , , , never or living with a partner: Little interest or pleasure in doing things: not at all Feeling down, depressed, or hopeless: not at all Do you think of yourself as: straight/heterosexual Gender Identity: male Meds Home Medications and Allergies Home Medications ?Medication ?Instructions ?Recorded ?Confirmed ?Type dicyclomine 20 mg tablet 20 mg PO TID PRN abdominal pain 06/20/24 06/21/24 Rx #14 tabs fluoxetine 20 mg capsule 20 mg PO DAILY 06/20/24 06/21/24 History olanzapine 5 mg tablet 5 mg PO DAILY 06/20/24 06/21/24 History ondansetron 4 mg disintegrating 4 mg PO Q6H PRN nausea and 06/20/24 06/21/24 Rx tablet vomiting #10 tabs prednisone 5 mg tablet mg 06/20/24 History ustekinumab 90 mg/mL subcutaneous 90 mg subcut .[id number] 06/20/24 06/21/24 History syringe (Stelara) Allergies Allergy/AdvReac Type Severity Reaction Status Date / Time sulfamethoxazole (From Allergy Unknown Unknown Verified 06/20/24 20:16 Bactrim) trimethoprim (From Bactrim) Allergy Unknown Unknown Verified 06/20/24 20:16 Exam Narrative Exam Narrative: General: Patient is alert, and oriented to person, place and time with normal affect, proper hygiene Skin: no visible rashes, or ulcers Head: atraumatic, acephalic Eyes: PERRLA, no nystagmus present, conjunctiva clear, no scleral icterus Ears: normal gross auditory acuity Nose: symmetric, no discharge, no maxillary or frontal sinus tenderness Heart: Normal rate and rhythm, no murmurs/rubs/gallops Lungs: no audible wheezes, crackles and normal breath sounds all lung qiu Abdomen: hypoactive bowel sounds, no distension, No palpable masses, no organomegaly, no rebound/guarding/ or rigidity Musculoskeletal: no swelling bilateral lower extremities Neuro: CN II-X grossly intact Constitutional Vital Signs, click to edit/add: Last Vital Signs Temp 99.6 F 06/21/24 04:00 Pulse 80 06/21/24 08:09 Resp 16 06/21/24 04:00 BP 106/68 06/21/24 04:00 Pulse Ox 94 L 06/21/24 04:39 O2 Del Method Room Air 06/21/24 04:39 Results Labs Labs: Short CBC 06/20/24 06/21/24 Range/Units 20:20 05:02 WBC 15.1 H 18.9 H (4.0-11.0) 10^3/uL Hgb 15.0 13.6 L (14.0-18.0) g/dL Hct 44.7 40.9 L (42.0-54.0) % Plt Count 322 267 (150-450) 10^3/uL BMP 06/20/24 06/21/24 20:20 05:02 Sodium 139 141 Potassium 4.0 4.6 Chloride 101 105 Carbon Dioxide 25.0 24.2 BUN 20.0 H 16.0 Creatinine 1.43 H 1.19 Glucose 142 H 110 H Calcium 9.1 8.4 L Liver Function 06/20/24 06/21/24 Range/Units 20:20 05:02 Total Bilirubin 2.6 H 3.1 H (0.2-1.0) mg/dL AST 21 17 (15-37) U/L ALT 24 24 (16-63) U/L Alkaline Phosphatase 65 52 (46-116) U/L Albumin 3.2 L 2.7 L (3.4-5.0) g/dL Urine 06/21/24 Range/Units 00:05 Urine Color Yellow (YELLOW) Urine Clarity Clear (CLEAR) Urine pH 8.0 (5.0-9.0) Ur Specific [place] 1.010 (1.005-1.025) Urine Protein Trace (NEG/TRACE) mg/dL Urine Glucose (UA) Negative (NEGATIVE) mg/dL Assessment and Plan Assessment and Plan (1) Acute Crohn's disease: Assessment and Plan: continue IVF, IV solumedrol and pain control as needed. advance diet to clear liquid. increase in WBC's can be due to steroid use. CT scan looked ok. Qualifiers: Digestive disease complication type: unspecified complication Qualified Code(s): K50.919 - Crohn's disease, unspecified, with unspecified complications (2) Anxiety: Assessment and Plan: continue home medications Plan Patient is a full code continue lovenox for dvt prophylaxis patient in observation status
[2024-06-21] MEDS: MAGNESIUM SULFATE IN WATER 2 GM/50 ML PREMIX IV (10:00)
--- NOTE | 2024-06-21 10:30 | CM.NOTE ---
Rounds made with Dr. Ayala, advance diet to clear liquid. No discharge to home. Dr. Ayala will speak with Dr. Sellers today for update and any further recommendations.
--- NOTE | 2024-06-21 19:16 | NUTR.NU ---
Visited w/pt in room for diet education. He has dx/hx Crohn's disease and is currently receiving clear liquids only. Provided handouts: IBD - Crohn's Disease and Ulcerative Colitis Nutrition Therapy, Low Fiber Nutrition Therapy. Also provided Dietitian contact info and encouraged pt/ to phone or email with any questions or concerns. Will continue to follow PRN.
[2024-06-22] VITALS (19 sets, daily range): BP systolic 99–117; BP diastolic 59–68; PULSE 60–94; TEMP 36.8–37.5; O2SAT 90–97
[2024-06-22] MEDS: HYDROMORPHONE HCL 1 MG/ML CARTRIDGE IVP (03:38)
[2024-06-22] MEDS: 0.9 % SODIUM CHLORIDE 1,000 ML 100 ML IV ×2 (07:00→16:22)
[2024-06-22] MEDS: METHYLPREDNISOLONE SOD SUCC PF 40 MG/ML VIAL IVP ×3 (07:54→23:26)
[2024-06-22] MEDS: ENOXAPARIN SODIUM 40 MG/0.4 ML SYRINGE SUBQ (08:00)
--- NOTE | 2024-06-22 08:05 | P.DS_ITS ---
DS: Providers Provider Date of admission: 06/21/24 00:45 Primary care physician: Kylee Rodriguez NP DS: Diagnosis Discharge Diagnosis (1) Acute Crohn's disease: Qualifiers: Digestive disease complication type: unspecified complication Qualified Code(s): K50.919 - Crohn's disease, unspecified, with unspecified complications (2) Anxiety: DS: Summary Time Spent with Patient Time attestation: Total time spent providing and/or coordinating discharge services: Exam Constitutional Vital Signs, click to edit/add: Last Vital Signs Temp 98.3 F 06/22/24 08:00 Pulse 84 06/22/24 08:00 Resp 14 06/22/24 08:00 BP 109/61 06/22/24 08:00 Pulse Ox 96 06/22/24 08:00 O2 Del Method Room Air 06/22/24 08:00 Discharge Plan Discharge Discharge Medications: No Action dicyclomine 20 mg tablet 20 mg PO TID PRN (Reason: abdominal pain) Qty: 14 0RF ondansetron 4 mg tablet,disintegrating 4 mg PO Q6H PRN (Reason: nausea and vomiting) Qty: 10 0RF Stelara 90 mg/mL syringe 90 mg SUBCUT .[id number] olanzapine 5 mg tablet 5 mg PO DAILY fluoxetine 20 mg capsule 20 mg PO DAILY Print Language: Maldivian
[2024-06-22 08:27] LABS: Basophils Percent Auto 0.1 % (0.2-2.0); Hematocrit 34.1 % (42.0-54.0); Hemoglobin 11.3 g/dL (14.0-18.0); Immature Granulocytes Abs Auto 0.06 10^3/uL (0.00-0.03); Immature Granulocytes Pct Auto 0.5 % (0.0-0.5); Lymphocytes Absolute Auto 0.3 10^3/uL (1.2-3.8); Lymphocytes Percent Auto 2.3 % (20.5-60.0); Mean Corpuscular HGB Conc 33.1 g/dL (29.9-35.2); Mean Corpuscular Hemoglobin 30.1 pg (25.9-34.0); Mean Corpuscular Volume 90.9 fL (80.0-94.0); Monocytes Absolute Auto 0.3 10^3/uL (0.3-0.8); Monocytes Percent Auto 2.9 % (1.7-12.0); Neutrophils Absolute Auto 11.1 10^3/uL (1.4-6.5); Neutrophils Percent Auto 94.2 % (43.0-75.0); Platelet Count 214 10^3/uL (150-450); Red Blood Count 3.75 10^6/uL (4.70-6.10); Red Cell Distribution Width 13.4 % (11.0-15.0); White Blood Count 11.8 10^3/uL (4.0-11.0)
[2024-06-22 08:44] LABS: Alanine Aminotransferase 17 U/L (16-63); Albumin Globulin Ratio 0.6; Albumin Level 2.2 g/dL (3.4-5.0); Alkaline Phosphatase 45 U/L (46-116); Anion Gap 12.8; Aspartate Amino Transferase 16 U/L (15-37); BUN Creatinine Ratio 16.7; Bilirubin Total 3.7 mg/dL (0.2-1.0); Calcium 8.4 mg/dL (8.5-10.1); Carbon Dioxide 25.7 mmol/L (21.0-32.0); Chloride 104 mmol/L (98-107); Estimated GFR (African America >60 (>=60 mL/min/1.73m^2); Estimated GFR (Non-African Ame >60 (>=60 mL/min/1.73m^2); Globulin 3.9 g/dL; Glucose 106 mg/dL (74-106); Magnesium 2.1 mg/dL (1.8-2.4); Potassium 4.5 mmol/L (3.5-5.1); Sodium 138 mmol/L (136-145); Total Protein 6.1 g/dL (6.4-8.2)
[2024-06-22 08:46] LABS: Lactate/Lactic Acid 1.4 mmol/L (0.4-2.0)
--- NOTE | 2024-06-22 11:18 | P.PN_ITS ---
Progress Note: Subjective Subjective Interval history: Patient still with RLQ pain. Less than yesterday, only tolerating clear liquid diet. BM last night, no blood but increased pain. He denies fevers or chills. Passing gas. Exam Narrative Exam Narrative: General: Patient is alert, and oriented to person, place and time with normal affect, proper hygiene Skin: no visible rashes, or ulcers Head: atraumatic, acephalic Eyes: PERRLA, no nystagmus present, conjunctiva clear, no scleral icterus Ears: normal gross auditory acuity Nose: symmetric, no discharge, no maxillary or frontal sinus tenderness Heart: Normal rate and rhythm, no murmurs/rubs/gallops Lungs: no audible wheezes, crackles and normal breath sounds all lung qiu Abdomen: hypoactive bowel sounds, no distension, No palpable masses, no orga nomegaly, no rebound/guarding/ or rigidity, some tenderness to palpation in the RLQ Musculoskeletal: no swelling bilateral lower extremities Neuro: CN II-X grossly intact Constitutional Vital Signs, click to edit/add: Last Vital Signs Temp 98.3 F 06/22/24 08:00 Pulse 84 06/22/24 10:00 Resp 14 06/22/24 08:00 BP 109/61 06/22/24 08:00 Pulse Ox 97 06/22/24 10:00 O2 Del Method Room Air 06/22/24 08:00 Progress Note: Objective Labs Labs: Short CBC 06/22/24 Range/Units 08:21 WBC 11.8 H (4.0-11.0) 10^3/uL Hgb 11.3 L (14.0-18.0) g/dL Hct 34.1 L (42.0-54.0) % Plt Count 214 (150-450) 10^3/uL BMP 06/22/24 08:21 Sodium 138 Potassium 4.5 Chloride 104 Carbon Dioxide 25.7 BUN 18.0 Creatinine 1.08 Glucose 106 Calcium 8.4 L Liver Function 06/22/24 Range/Units 08:21 Total Bilirubin 3.7 H (0.2-1.0) mg/dL AST 16 (15-37) U/L ALT 17 (16-63) U/L Alkaline Phosphatase 45 L (46-116) U/L Albumin 2.2 L (3.4-5.0) g/dL Progress Note: A&P Assessment and Plan (1) Acute Crohn's disease: Assessment and Plan: Continue IVF, continue Solumedrol. Clear liquid diet. Pain control as needed. Lactate normal 1.4 today, WBC's 11.8. mag 2.1. Patient still with pain, and anorexia. Plan to keep him 1-2 more days. Qualifiers: Digestive disease complication type: unspecified complication Qualified Code(s): K50.919 - Crohn's disease, unspecified, with unspecified complications (2) Anxiety: Assessment and Plan: continue fluoxetine, olanzapine. Plan Patient is a full code continue lovenox for DVT prophylaxis I have made patient inpatient status and plan to keep him 1-2 more days for treatment of his acute Crohn's disease.
--- NOTE | 2024-06-22 11:27 | CM.NOTE ---
Rounds made with Dr. Ayala, discussed with pt possible discharge to home this afternoon if able to tolerate food. Pt then will f/u with GI Dr. Sellers and PCP.
[2024-06-22] MEDS: CIPROFLOXACIN IN 5 % DEXTROSE 400 MG/200 ML PREMIX 200 MG IV (21:01)
[2024-06-22] MEDS: OLANZapine 5 MG TABLET PO (21:01)
[2024-06-22] MEDS: METRONIDAZOLE/SODIUM CHLORIDE 500 MG/100 ML PREMIX 100 MG IV (21:02)
[2024-06-22] MEDS: FLUOXETINE HCL 20 MG CAPSULE PO (21:02)
[2024-06-23] VITALS (7 sets, daily range): BP systolic 118–133; BP diastolic 73–75; PULSE 49–65; TEMP 36.6–36.8; O2SAT 92–95
[2024-06-23] MEDS: 0.9 % SODIUM CHLORIDE 1,000 ML 100 ML IV (04:20)
[2024-06-23] MEDS: METRONIDAZOLE/SODIUM CHLORIDE 500 MG/100 ML PREMIX 100 MG IV (04:20)
[2024-06-23 06:13] LABS: Basophils Percent Auto 0.1 % (0.2-2.0); Hematocrit 31.7 % (42.0-54.0); Hemoglobin 10.4 g/dL (14.0-18.0); Immature Granulocytes Abs Auto 0.04 10^3/uL (0.00-0.03); Immature Granulocytes Pct Auto 0.5 % (0.0-0.5); Lymphocytes Absolute Auto 0.2 10^3/uL (1.2-3.8); Lymphocytes Percent Auto 1.8 % (20.5-60.0); Mean Corpuscular HGB Conc 32.8 g/dL (29.9-35.2); Mean Corpuscular Hemoglobin 29.7 pg (25.9-34.0); Mean Corpuscular Volume 90.6 fL (80.0-94.0); Monocytes Absolute Auto 0.4 10^3/uL (0.3-0.8); Monocytes Percent Auto 3.9 % (1.7-12.0); Neutrophils Absolute Auto 8.3 10^3/uL (1.4-6.5); Neutrophils Percent Auto 93.7 % (43.0-75.0); Platelet Count 220 10^3/uL (150-450); Red Cell Distribution Width 13.6 % (11.0-15.0); White Blood Count 8.9 10^3/uL (4.0-11.0)
[2024-06-23 06:24] LABS: Magnesium 1.9 mg/dL (1.8-2.4)
[2024-06-23 06:33] LABS: Alanine Aminotransferase 32 U/L (16-63); Albumin Globulin Ratio 0.5; Albumin Level 1.9 g/dL (3.4-5.0); Alkaline Phosphatase 52 U/L (46-116); Anion Gap 13.3; Aspartate Amino Transferase 23 U/L (15-37); BUN Creatinine Ratio 17.8; Bilirubin Total 2.5 mg/dL (0.2-1.0); Calcium 8.2 mg/dL (8.5-10.1); Carbon Dioxide 24.7 mmol/L (21.0-32.0); Chloride 106 mmol/L (98-107); Estimated GFR (African America >60 (>=60 mL/min/1.73m^2); Estimated GFR (Non-African Ame >60 (>=60 mL/min/1.73m^2); Globulin 3.8 g/dL; Glucose 123 mg/dL (74-106); Sodium 140 mmol/L (136-145); Total Protein 5.7 g/dL (6.4-8.2)
--- NOTE | 2024-06-23 08:35 | P.DS_ITS ---
DS: Providers Provider Date of admission: 06/22/24 11:22 Primary care physician: Kylee Rodriguez NP Attending physician on admission: Barbara Ayala Discharging clinician: Barbara Ayala DS: Diagnosis Discharge Diagnosis (1) Acute Crohn's disease: Qualifiers: Digestive disease complication type: unspecified complication Qualified Code(s): K50.919 - Crohn's disease, unspecified, with unspecified complications (2) Anxiety: DS: Summary Hospital Course Hospital Course: Patient is a 44 y.o White male with history of Crohn's disease that follows with Dr. Sellers, GI at [facility]. He is currently taking Stelara x 2 doses. Presented to the ER with increase RLQ abdominal pain. CT scan consistent with active inflammatory bowel changes in the ileum, normal appendix and no other acute changes. WBC's 18.9, Hb 13.6, low grade fever and hypotension 106/68. Elevated lactate 2.5. Patient denies fevers or chills, no blood in stool. Has been having bowel movements with some pain but this morning no pain. No urinary complaints. He was NPO and getting IV solumedrol 40mg q6hrs. His pain is dull in the right lower quadrant so I also added IV Cipro and Flagyl. Patient remained afebrile. At the time of discharge patient is tolerating clear liquids and his PO home medications. Pain is mostly resolved. I have personally spoke with Dr. Sellers on the phone and she would like a long predisone taper starting at 40mg daily for the first week and decreasing by 5mg each week until done, total of 8 weeks. He will also take and complete Flagyl 250mg Q8 hours x 7 days and Cipro 500mg BI D x 7 days. WBC's are 8.9,k Hb 10.4, Cr 0.9, lactate 1.4. He will be discharged home today in stable condition. Dr. Sellers's office will contact patient for follow up in 2 weeks. He may return to the ER with any worsening signs or symptoms. Dr. Sellers also requested patient be on Low residual diet. Status at Discharge Functional status at discharge: independent ambulation Overall status at discharge: patient is progressing back to baseline Time Spent with Patient Time attestation: Total time spent providing and/or coordinating discharge services: Time spent: greater than 30 minutes Exam Narrative Exam Narrative: General: Patient is alert, and oriented to person, place and time with normal affect, proper hygiene Skin: no visible rashes, or ulcers Head: atraumatic, acephalic Eyes: PERRLA, no nystagmus present, conjunctiva clear, no scleral icterus Neck: no masses palpated, normal thyroid, no JVD or audible carotid bruits Heart: Normal rate and rhythm, no murmurs/rubs/gallops Lungs: no audible wheezes, crackles and normal breath sounds all lung qiu Abdomen: Normal audible bowel sounds, no distension, No palpable masses, no organomegaly, no rebound/guarding/ or rigidity Musculoskeletal:no swelling bilateral lower extremities Neuro: CN II-X grossly intact Constitutional Vital Signs, click to edit/add: Last Vital Signs Temp 97.9 F 06/23/24 08:00 Pulse 53 L 06/23/24 08:00 Resp 18 06/23/24 08:00 BP 118/73 06/23/24 08:00 Pulse Ox 92 L 06/23/24 08:00 O2 Del Method Room Air 06/23/24 08:00 DS: Data Data Completed and Pending Labs on day of discharge: Labs from last 24 hours 06/23/24 06/22/24 05:16 08:21 WBC 8.9 RBC 3.50 L Hgb 10.4 L Hct 31.7 L MCV 90.6 MCH 29.7 MCHC 32.8 RDW 13.6 Plt Count 220 MPV 10.0 Neut % (Auto) 93.7 H Lymph % (Auto) 1.8 L [place] % (Auto) 3.9 Eos % (Auto) 0.0 L Baso % (Auto) 0.1 L Neut # (Auto) 8.3 H Lymph # (Auto) 0.2 L [place] # (Auto) 0.4 Eos # (Auto) 0.0 Baso # (Auto) 0.0 Abs Immat Gran (auto) 0.04 H Imm/Tot Granulo (auto) 0.5 Sodium 140 138 Potassium 4.0 4.5 Chloride 106 104 Carbon Dioxide 24.7 25.7 Anion Gap 13.3 12.8 BUN 16.0 18.0 Creatinine 0.90 1.08 Est GFR ( Amer) >60 >60 Est GFR (Non-Af Amer) >60 >60 BUN/Creatinine Ratio 17.8 16.7 Glucose 123 H 106 Lactate 1.4 Calcium 8.2 L 8.4 L Magnesium 1.9 2.1 Total Bilirubin 2.5 H 3.7 H AST 23 16 ALT 32 17 Alkaline Phosphatase 52 45 L Total Protein 5.7 L 6.1 L Albumin 1.9 L 2.2 L Globulin 3.8 3.9 Albumin/Globulin Ratio 0.5 0.6 Discharge Plan Discharge Disposition: Home, Self-Care Discharge Medications: New ciprofloxacin HCl 500 mg tablet 500 mg PO BID 7 Days Qty: 14 0RF metronidazole 250 mg tablet 250 mg PO Q8H 7 Days Qty: 21 0RF prednisone 5 mg tablet See Rx Instructions .ROUTE .COMPLEX Qty: 252 0RF Rx Instructions: prednisone 5 mg: take 8 tablets (40 mg) daily for week #1; then 7 tablets (35 mg) daily on Week #2; then 6 tablets (30mg) daily for week #3, then 5 tablets (25mg) daily for week #4, Then 4 tablets daily (20mg) for week #5, then 3 (15mg) tablets daily for week #6, then 2 tablets daily (10mg) for week #7, then 1 tablet daily (5mg) for week #8, then stop Continued dicyclomine 20 mg tablet 20 mg PO TID PRN (Reason: abdominal pain) Qty: 14 0RF ondansetron 4 mg tablet,disintegrating 4 mg PO Q6H PRN (Reason: nausea and vomiting) Qty: 10 0RF Stelara 90 mg/mL syringe 90 mg SUBCUT .[id number] olanzapine 5 mg tablet 5 mg PO DAILY fluoxetine 20 mg capsule 20 mg PO DAILY Activity: increase activity as tolerated Diet: other Diet Detail: Low residual Diet Print Language: [place] Patient Instructions: Ciprofloxacin (By mouth), Prednisone (By mouth), Metronidazole (By mouth), Crohn Disease (DC), Abdominal Pain (DC) Forms: Portal Instructions Follow Up Appointments: Follow up with Dr. Sellers on 09/06/24 at 9:00am phone number [phone] (her office will call and set up something sooner) Follow up with Kylee May on 07/03/24 at 7:00pm phone number [phone] Discharge location: Home
[2024-06-23] MEDS: METHYLPREDNISOLONE SOD SUCC PF 40 MG/ML VIAL IVP (09:07)
[2024-06-23] MEDS: CIPROFLOXACIN IN 5 % DEXTROSE 400 MG/200 ML PREMIX 100 MG IV (09:07)
[2024-06-23] MEDS: OLANZapine 5 MG TABLET PO (09:08)
[2024-06-23] MEDS: FLUOXETINE HCL 20 MG CAPSULE PO (09:08)
--- NOTE | 2024-06-23 09:53 | CM.NOTE ---
Rounds made with Dr. Ayala. Plan for discharge today. Follow up with GI Specialist-her office will call with date. Understanding verbalized.
--- NOTE | 2024-06-26 13:34 | CM.DCFOLLOWU ---
1st attempt 06/26/24, no answer
--- NOTE | 2024-06-27 13:26 | CM.DCFOLLOWU ---
2nd attempt 06/27/24, no answer
== END 2024-06-23 11:52 | disposition home or self-care (01) | DRG 387 ==
LOC: ER 06-21 00:01 → MS 06-21 00:45
PROVIDERS: Registered Nurse; Admitting Provider Family Medicine; Emergency Provider Internal Medicine; Family Provider Family Medicine; PCP Nurse Practitioner; Visit Provider Family Medicine
DX: K50.918 Crohn's disease, unspecified, with other complication (principal); F41.9 Anxiety disorder, unspecified; Z79.899 Other long term (current) drug therapy; I80.01 Phlebitis and thrombophlebitis of superficial vessels of right lower extremity; M79.89 Other specified soft tissue disorders; M79.604 Pain in right leg
CPT/HCPCS: 36415; 74177; 80053; 81003; 83605; 83690; 83735; 84484; 85007; 85025; 85027; 93971; 94761; 96374; 96375; 96376; 99283; 99285; G0378; J0744; J1171; J1650; J1836; J2919; J3010; J3475; Q9967

== ENCOUNTER 2024-07-04 08:36 | Outpatient (OUT) | payer BC, SELFPAY ==
[2024-07-04 08:52] LABS: Basophils Percent Auto 0.1 % (0.2-2.0); Hematocrit 39.7 % (42.0-54.0); Hemoglobin 12.9 g/dL (14.0-18.0); Immature Granulocytes Pct Auto 0.6 % (0.0-0.5); Lymphocytes Absolute Auto 0.7 10^3/uL (1.2-3.8); Lymphocytes Percent Auto 4.4 % (20.5-60.0); Mean Corpuscular HGB Conc 32.5 g/dL (29.9-35.2); Mean Corpuscular Hemoglobin 29.3 pg (25.9-34.0); Mean Corpuscular Volume 90.2 fL (80.0-94.0); Mean Platelet Volume 8.4 fL (9.5-13.5); Monocytes Absolute Auto 0.4 10^3/uL (0.3-0.8); Monocytes Percent Auto 2.8 % (1.7-12.0); Neutrophils Absolute Auto 14.5 10^3/uL (1.4-6.5); Neutrophils Percent Auto 92.1 % (43.0-75.0); Platelet Count 556 10^3/uL (150-450); Red Cell Distribution Width 12.9 % (11.0-15.0); White Blood Count 15.8 10^3/uL (4.0-11.0)
--- OUTSIDE RECORDS SUMMARY | 2024-07-04 08:54 | XMS_ITS | CCD ---
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 section and content) Goals may be documented in a n alternate section (unrecognized sect ion and content) No Status Records FoundNo Status Records Found INFORMATION SOURCE (unrecogn ized section and content) DATE CREATED AUTHOR 04/16/2024 [facility] DATE CREATED AUTHOR AUTHOR'S CAROLINE ATJAN 06/21/2024 [facility] FOR RECORDS PERTAINING TO PATIENTS WHO [...] BE BASED ON THE PRIMARY CLINICAL RECORDS. [employer] provides no warranty or guarantee of the accuracy or completeness of information in this document.
[2024-07-04 09:04] LABS: Alanine Aminotransferase 37 U/L (16-63); Albumin Globulin Ratio 0.4; Albumin Level 2.3 g/dL (3.4-5.0); Alkaline Phosphatase 88 U/L (46-116); Anion Gap 12.6; Aspartate Amino Transferase 25 U/L (15-37); BUN Creatinine Ratio 8.9; Bilirubin Total 0.9 mg/dL (0.2-1.0); Calcium 9.1 mg/dL (8.5-10.1); Carbon Dioxide 30.3 mmol/L (21.0-32.0); Chloride 100 mmol/L (98-107); Estimated GFR (African America >60 (>=60 mL/min/1.73m^2); Estimated GFR (Non-African Ame 57 (>=60 mL/min/1.73m^2); Globulin 5.3 g/dL; Glucose 130 mg/dL (74-106); Magnesium 1.9 mg/dL (1.8-2.4); Potassium 3.9 mmol/L (3.5-5.1); Sodium 139 mmol/L (136-145); Total Protein 7.6 g/dL (6.4-8.2)
== END 2024-07-04 08:37 | disposition home or self-care (01) ==
LOC: LAB 08:38
PROVIDERS: Family Provider Family Medicine; PCP Nurse Practitioner; Visit Provider Nurse Practitioner
DX: R11.2 Nausea with vomiting, unspecified (principal); K50.90 Crohn's disease, unspecified, without complications; R19.7 Diarrhea, unspecified
CPT/HCPCS: 36415; 80053; 83735; 85025

== ENCOUNTER 2024-07-20 13:07 | Outpatient (REF) | payer BC, SELFPAY ==
--- OUTSIDE RECORDS SUMMARY | 2024-07-20 13:19 | XMS_ITS | CCD ---
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 [place] [id number] [place] Sodium [Moles/Vol] 138 mmol/L Normal 136-144 [facility] Comment on above: Order Comment: Speci men Type: BLOOD SPECIMENOrdering Facility: [facility] Address: [address] [place] [address] Performed By: #### 2 4323-8, , 2776-08 ####RADHA LABORATORYCLIA [id number] [place] [address] [place] Urea nitrogen [Mass/Vol] 18 mg/dL Normal 9-24 [facility] Comment on above: Order Comment: Speci men Type: BLOOD SPECIMENOrdering Facility: [facility] Address: [address] [place] [address] Performed By: #### 2 4323-8, 55763-0, 2777-1 ####RADHA LABORATORYCLIA [id number] [place] [id number] [place] Magnesium SerPl-mCncon 07-15 Magnesium [Mass/Vol] 1.9 mg/dL Normal 1.7-2.3 [facility] Comment on above: Order Comment: Speci men Type: BLOOD SPECIMENOrdering Facility: [facility] Address: [address] [place] [address] Performed By: #### 2 4323-8, , 27701-30 ####[facility] LABORATORYCLIA [id number] [place] [id number] [place] Phosphate SerPl-mCncon 07-15 Phosphate [Mass/Vol] 3.0 mg/dL Normal 2.7-4.8 [facility] Comment on above: Order Comment: Speci men Type: BLOOD SPECIMENOrdering Facility: [facility] Address: [address] [place] [address] Performed By: #### 2 4323-8, , 27771 ####RADHA LABORATORYCLIA [id number] [place] [id number] [place] CBC panel Auto (Bld)on 07-14 Erythrocyte distribution width (RBC) [Ratio] 13.5 % Normal 11.5-15.0 [facility] Comment on above: Order Comment: Speci men Type: BLOOD SPECIMENOrdering Facility: [facility] Address: [address] [place] [address] Performed By: #### 5 8410-2 ####RADHA LABORATORYCLIA [id number] [address] Hematocrit (Bld) [Volume fraction] 35.3 % Low 39.0-51.0 [facility] Comment on above: Order Comment: Speci men Type: BLOOD SPECIMENOrdering Facility: [facility] Address: [address] [place] [address] Performed By: #### 5 8410-2 ####RADHA LABORATORYCLIA [id number] [address] [place] Hemoglobin (Bld) [Mass/Vol] 11.4 g/dL Low 13.0-17.0 [facility] Comment on above: Order Comment: Speci men Type: BLOOD SPECIMENOrdering Facility: [facility] Address: [address] [place] [address] Performed By: #### 5 8410-2 ####RADHA LABORATORYCLIA [id number] [address] [place] MCH (RBC) [Entitic mass] 28.9 pg Normal 26.0-34.0 [facility] Comment on above: Order Comment: Speci men Type: BLOOD SPECIMENOrdering Facility: [facility] Address: [address] [place] [address] Performed By: #### 5 8410-2 ####RADHA LABORATORYCLIA [id number] [address] [place] MCHC (RBC) [Mass/Vol] 32.3 g/dL Normal 30.5-36.0 [facility] Comment on above: Order Comment: Speci men Type: BLOOD SPECIMENOrdering Facility: [facility] Address: [address] [place] [address] Performed By: #### 5 8410-2 ####RADHA LABORATORYCLIA [id number] [address] [place] MCV (RBC) [Entitic vol] 89.4 fL Normal 80.0-100.0 [facility] Comment on above: Order Comment: Speci men Type: BLOOD SPECIMENOrdering Facility: [facility] Address: [address] [place] [address] Performed By: #### 5 8410-2 ####[facility] LABORATORYCLIA [id number] [place] [id number] [place] Nucleated RBC (Bld) [#/Vol] 10*3/uL Normal <0.01 [facility] Comment on above: Order Comment: Speci men Type: BLOOD SPECIMENOrdering Facility: [facility] Address: [address] [place] [address] Performed By: #### 5 8410-2 ####[facility] LABORATORYCLIA [id number] [place] [id number] [place] Platelet mean volume (Bld) [Entitic vol] 9.7 fL Normal 9.0-12.7 [facility] Comment on above: Order Comment: Speci men Type: BLOOD SPECIMENOrdering Facility: [facility] Address: [address] [place] [address] Performed By: #### 5 8410-2 ####[facility] LABORATORYCLIA [id number] [place] [id number] [place] Platelets (Bld) [#/Vol] 325 10*3/uL Normal 150-400 [facility] Comment on above: Order Comment: Speci men Type: BLOOD SPECIMENOrdering Facility: [facility] Address: [address] [place] [address] Performed By: #### 5 8410-2 ####[facility] LABORATORYCLIA [id number] [place] [id number] [place] RBC (Bld) [#/Vol] 3.95 10*6/uL Low 4.20-6.00 [facility] Comment on above: Order Comment: Speci men Type: BLOOD SPECIMENOrdering Facility: [facility] Address: [address] [place] [address] Performed By: #### 5 8410-2 ####[facility] LABORATORYCLIA [id number] [place] [id number] [place] WBC (Bld) [#/Vol] 8.07 10*3/uL Normal 3.70-11.00 [facility] Comment on above: Order Comment: Speci men Type: BLOOD SPECIMENOrdering Facility: [facility] Address: [facility] [place] [address] Performed By: #### 5 8410-2 ####RADHA LABORATORYCLIA [id number] [place] [id number] [facility] [place] CONSULTon 07-14-2024 CONSULT HNO ID: [id number] Author: CHRISTIN GOLDSMITH APRN.CNP Service: Wound/Ostomy Author Type: Nurse Practitioner Type: Consults Filed: 07/14/2024 10:20 Note Text: STOMA CARE EDUCATION FOLLOW-UP NOTE Patient Name: Faiza Lozano Date: July 14, 2024 Time: 10:00 AM STOMA ASSESSMENT Stoma type: End ileostomy Location: RLQ Protrusion: Budded Mucosal condition and color: Red and moist. Mucocutaneous Junction: Not visible at this time Output: Yes: Effluent Supportive Tissue: Semisoft Pouching System: Moodsnap New Image 2 1/4 soft convex wafer with a high output pouch Time Increment: 35 minutes Comments: NA Supplies Given: No, has supplies PATIENT EDUCATION Skin Care Topic: Prevention Educated on importance of hydration, written guidelines given and discussed options for electrolyte beverages. 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 Best By: Multiple Methods Factors Affecting Learning: None Physical Limitations Affecting Learning: None LEARNING RESPONSE Diagnosis- Skin Impairment: High Risk Method of Instruction: Written instruction/Handouts Verbal instruction Instructional Aids Used: Hand-out(s) Patient/Family Response: Verbalizes understanding of: Diet and fluids, changing appliance and emptying appliance when 1/3-1/2 full FOLLOW-UP PLAN: Complete Supplemental Material Provided to Patient: [employer] [place] literature given for hydration and website for complete brochures that can be downloaded for understanding ileostomy and nutrition Referral Recommendation: Home Health Agency Signature: Christin Goldsmith APRN.CNP This is an electronically created document. IF PRINTED, PLEASE DO NOT REMOVE FROM THE CHART OR MODIFY PRINTED COPY. PATIENT EDUCATION Skin Care Topic: Prevention Normal [facility] metabolic 2000 panelon 07-14-2024 Albumin [Mass/Vol] 3.5 g/dL Low 3.9-4.9 [facility] Comment on above: Order Comment: Speci men Type: BLOOD SPECIMENOrdering Facility: [facility] Address: [address] [place] [address] Performed By: #### 2 4323-8, 58334-7, 2776-08 ####[facility] LABORATORYCLIA [id number] [place] [address] [place] ALP [Catalytic activity/Vol] 72 U/L Normal 38-113 [facility] Comment on above: Order Comment: Speci men Type: BLOOD SPECIMENOrdering Facility: [facility] Address: [address] [place] [address] Performed By: #### 2 4323-8, , 2776-08 ####[facility] LABORATORYCLIA [id number] [place] [id number] [place] ALT [Catalytic activity/Vol] 49 U/L Normal 10-54 [facility] Comment on above: Order Comment: Speci men Type: BLOOD SPECIMENOrdering Facility: [facility] Address: [address] [place], [place] [address] Performed By: #### 2 4323-8, , 2776-08 ####[facility] LABORATORYCLIA [id number] [place] [id number] [place] Anion gap [Moles/Vol] 11 mmol/L Normal 8-15 [facility] Comment on above: Order Comment: Speci men Type: BLOOD SPECIMENOrdering Facility: [facility] Address: [address] [place], [place] [address] Performed By: #### 2 4323-8, , 2776-08 ####[facility] LABORATORYCLIA [id number] [place] [address] [place] AST [Catalytic activity/Vol] 29 U/L Normal 14-40 [facility] Comment on above: Order Comment: Speci men Type: BLOOD SPECIMENOrdering Facility: [facility] Address: [address] [place], [place] [address] Performed By: #### 2 4323-8, , 2776-08 ####RADHA LABORATORYCLIA [id number] [place] [address] [place] Bilirubin [Mass/Vol] 0.4 mg/dL Normal 0.2-1.3 [facility] Comment on above: Order Comment: Speci men Type: BLOOD SPECIMENOrdering Facility: [facility] Address: [address] [place] [address] Performed By: #### 2 4323-8, , 2776-08 ####RADHA LABORATORYCLIA [id number] [place] [id number] [place] Calcium [Mass/Vol] 8.9 mg/dL Normal 8.5-10.2 [facility] Comment on above: Order Comment: Speci men Type: BLOOD SPECIMENOrdering Facility: [facility] Address: [address] [place] [address] Performed By: #### 2 4323-8, , 2776-08 ####[facility] LABORATORYCLIA [id number] [place] [id number] [place] Chloride [Moles/Vol] 104 mmol/L Normal 98-107 [facility] Comment on above: Order Comment: Speci men Type: BLOOD SPECIMENOrdering Facility: [facility] Address: [address] [place] [address] Performed By: #### 2 4323-8, , 2776-08 ####RADHA LABORATORYCLIA [id number] [place] [id number] [place] CO2 [Moles/Vol] 25 mmol/L Normal 22-30 [facility] Comment on above: Order Comment: Speci men Type: BLOOD SPECIMENOrdering Facility: [facility] Address: [address] [place] [address] Performed By: #### 2 4323-8, , 2776-08 ####[facility] LABORATORYCLIA [id number] [place] [address] [place] Creatinine [Mass/Vol] 0.81 mg/dL Normal 0.73-1.22 [facility] Comment on above: Order Comment: Amada wing Type: BLOOD SPECIMENOrdering Facility: [facility] Address: [address] [place] [address] Performed By: #### 2 4323-8, 81564-2, 7- ####[facility] LABORATORYCLIA [id number] [place] [id number] [place] Creatinine and Glomerular filtration rate.predicted panel (S/P/Bld) 111 mL/min/1.73m??? Normal >=60 [facility] Comment on above: Order Comment: Amada wing Type: BLOOD SPECIMENOrdering Facility: [facility] Address: [address] [place] [address] Result Comment: Daria mated Glomerular Filtration Rate (eGFR) is calculated using the 2020 CKD-EPI creatinine equation. This equation utilizes serum creatinine, sex, and age as parameters. The creatinine assay has traceable calibration to isotope dilution-mass spectrometry. Refer to KDIGO guidelines for clinical interpretation. In patients with unstable renal function, e.g. those with acute kidney injury, the eGFR may not accurately reflect actual GFR. Performed By: #### 2 4323-8, 00392-3, 277- ####[facility] LABORATORYCLIA [id number] [place] [id number] [place] Glucose [Mass/Vol] 77 mg/dL Normal 74-99 [facility] Comment on above: Order Comment: Amada wing Type: BLOOD SPECIMENOrdering Facility: [facility] Address: [address] [place] [address] Result Comment: The [place] Diabetes Association (ADA) provides guidance for cutoff values for fasting glucose and random glucose. The ADA defines fasting as no caloric intake for at least 8 hours. Fasting plasma glucose results between 100 to 125 mg/dL indicate increased risk for diabetes (prediabetes). Fasting plasma glucose results greater than or equal to 126 mg/dL meet the criteria for diagnosis of diabetes. In the absence of unequivocal hyperglycemia, results should be confirmed by repeat testing. In a patient with classic symptoms of hyperglycemia or hyperglycemic crisis, random plasma glucose results greater than or equal to 200 mg/dL meet the criteria for diagnosis of diabetes. Reference: Standards of Medical Care in Diabetes 2016, [place] [employer]. Diabetes Care. 2016.39(Suppl 1). Performed By: #### 2 4323-8, , 2776-08 ####RAD[facility] LABORATORYCLIA [id number] [place] [id number] [place] Potassium [Moles/Vol] 4.2 mmol/L Normal 3.7-5.1 [facility] Comment on above: Order Comment: Speci men Type: BLOOD SPECIMENOrdering Facility: [facility] Address: [address] [place] [address] Performed By: #### 2 4323-8, , 2776-08 ####RADHA LABORATORYCLIA [id number] [place] [id number] [place] Protein [Mass/Vol] 6.6 g/dL Normal 6.3-8.0 [facility] Comment on above: Order Comment: Speci men Type: BLOOD SPECIMENOrdering Facility: [facility] Address: [address] [place] [address] Performed By: #### 2 4323-8, , 2776-08 ####RADHA LABORATORYCLIA [id number] [place] [id number] [place] Sodium [Moles/Vol] 140 mmol/L Normal 136-144 [facility] Comment on above: Order Comment: Speci men Type: BLOOD SPECIMENOrdering Facility: [facility] Address: [address] [place] [address] Performed By: #### 2 4323-8, , 2776-08 ####RADHA LABORATORYCLIA [id number] [place] [id number] [place] Urea nitrogen [Mass/Vol] 18 mg/dL Normal 9-24 [facility] Comment on above: Order Comment: Speci men Type: BLOOD SPECIMENOrdering Facility: [facility] Address: [address] [place] [address] Performed By: #### 2 4323-8, , 2776-08 ####RADHA LABORATORYCLIA [id number] [place] [id number] [place] Magnesium SerPl-mCncon 07-14 Magnesium [Mass/Vol] 2.0 mg/dL Normal 1.7-2.3 [facility] Comment on above: Order Comment: Speci men Type: BLOOD SPECIMENOrdering Facility: [facility] Address: [address] [place] [address] Performed By: #### 2 4323-8, 23370-2, 2777-1 ####RADHA LABORATORYCLIA [id number] [place] [id number] [place] Phosphate SerPl-mCncon 07-14 Phosphate [Mass/Vol] 2.9 mg/dL Normal 2.7-4.8 [facility] Comment on above: Order Comment: Speci men Type: BLOOD SPECIMENOrdering Facility: [facility] Address: [address] [place] [address] Performed By: #### 2 4323-8, 24681-4, 2777-1 ####RADHA LABORATORYCLIA [id number] [place] [id number] [place] CBC panel Auto (Bld)on 07-13 Erythrocyte distribution width (RBC) [Ratio] 13.4 % Normal 11.5-15.0 [facility] Comment on above: Order Comment: Speci men Type: BLOOD SPECIMENOrdering Facility: [facility] Address: [address] [place] [address] Performed By: #### 5 8410-2 ####RADHA LABORATORYCLIA [id number] [place] [id number] [place] Hematocrit (Bld) [Volume fraction] 35.0 % Low 39.0-51.0 [facility] Comment on above: Order Comment: Speci men Type: BLOOD SPECIMENOrdering Facility: [facility] Address: [address] [place] [address] Performed By: #### 5 8410-2 ####RADHA LABORATORYCLIA [id number] [place] [id number] [place] Hemoglobin (Bld) [Mass/Vol] 11.2 g/dL Low 13.0-17.0 [facility] Comment on above: Order Comment: Speci men Type: BLOOD SPECIMENOrdering Facility: [facility] Address: [address] [place] [address] Performed By: #### 5 8410-2 ####RADHA LABORATORYCLIA [id number] [address] [place] MCH (RBC) [Entitic mass] 28.7 pg Normal 26.0-34.0 [facility] Comment on above: Order Comment: Speci men Type: BLOOD SPECIMENOrdering Facility: [facility] Address: [address] [place] [address] Performed By: #### 5 8410-2 ####[facility] LABORATORYCLIA [id number] [address] [place] MCHC (RBC) [Mass/Vol] 32.0 g/dL Normal 30.5-36.0 [facility] Comment on above: Order Comment: Speci men Type: BLOOD SPECIMENOrdering Facility: [facility] Address: [address] [place] [address] Performed By: #### 5 8410-2 ####[facility] LABORATORYCLIA [id number] [address] [place] MCV (RBC) [Entitic vol] 89.7 fL Normal 80.0-100.0 [facility] Comment on above: Order Comment: Speci men Type: BLOOD SPECIMENOrdering Facility: [facility] Address: [address] [place] [address] Performed By: #### 5 8410-2 ####[facility] LABORATORYCLIA [id number] [address] [place] Nucleated RBC (Bld) [#/Vol] 10*3/uL Normal <0.01 [facility] Comment on above: Order Comment: Speci men Type: BLOOD SPECIMENOrdering Facility: [facility] Address: [address] [place] [address] Performed By: #### 5 8410-2 ####RADHA LABORATORYCLIA [id number] [place] [address] [place] Platelet mean volume (Bld) [Entitic vol] 9.7 fL Normal 9.0-12.7 [facility] Comment on above: Order Comment: Speci men Type: BLOOD SPECIMENOrdering Facility: [facility] Address: [address] [place] [address] Performed By: #### 5 8410-2 ####[facility] LABORATORYCLIA [id number] [place] [id number] [place] Platelets (Bld) [#/Vol] 307 10*3/uL Normal 150-400 [facility] Comment on above: Order Comment: Speci men Type: BLOOD SPECIMENOrdering Facility: [facility] Address: [address] [place] [address] Performed By: #### 5 8410-2 ####[facility] LABORATORYCLIA [id number] [place] [address] [place] RBC (Bld) [#/Vol] 3.90 10*6/uL Low 4.20-6.00 [facility] Comment on above: Order Comment: Speci men Type: BLOOD SPECIMENOrdering Facility: [facility] Address: [address] [place] [address] Performed By: #### 5 8410-2 ####[facility] LABORATORYCLIA [id number] [place] [address] [place] WBC (Bld) [#/Vol] 8.17 10*3/uL Normal 3.70-11.00 [facility] Comment on above: Order Comment: Speci men Type: BLOOD SPECIMENOrdering Facility: [facility] Address: [address] [place] [address] Performed By: #### 5 8410-2 ####[facility] LABORATORYCLIA [id number] [place] [id number] [place] CCF BACTERIA BLD CULTon 12- [facility]CF BACTERIA BLD CULT GRAM STAIN: [facility]CF BACTERIA BLD CULT This blood culture had less than the recommended 8 ml per bottle, which could decrease the sensitivity of the test. [facility] Comprehensive metabolic 2000 panelon 07-13-2024 Albumin [Mass/Vol] 3.3 g/dL Low 3.9-4.9 [facility] Comment on above: Order Comment: Speci men Type: BLOOD SPECIMENOrdering Facility: [facility] Address: [address] [place] [address] Performed By: #### 2 4323-8, 63507-6, 2776- ####[facility] LABORATORYCLIA [id number] [place] [id number] [place] ALP [Catalytic activity/Vol] 65 U/L Normal 38-113 [facility] Comment on above: Order Comment: Speci men Type: BLOOD SPECIMENOrdering Facility: [facility] Address: [address] [place] [address] Performed By: #### 2 4323-8, , 2776- ####[facility] LABORATORYCLIA [id number] [place] [id number] [place] ALT [Catalytic activity/Vol] 39 U/L Normal 10-54 [facility] Comment on above: Order Comment: Speci men Type: BLOOD SPECIMENOrdering Facility: [facility] Address: [address] [place] [address] Performed By: #### 2 4323-8, , 2776-08 ####[facility] LABORATORYCLIA [id number] [place] [id number] [place] Anion gap [Moles/Vol] 8 mmol/L Normal 8-15 [facility] Comment on above: Order Comment: Speci men Type: BLOOD SPECIMENOrdering Facility: [facility] Address: [address] [place] [address] Performed By: #### 2 4323-8, , 2776- ####[facility] LABORATORYCLIA [id number] [place] [id number] [place] AST [Catalytic activity/Vol] 27 U/L Normal 14-40 [facility] Comment on above: Order Comment: Speci men Type: BLOOD SPECIMENOrdering Facility: [facility] Address: [address] [place], [place] [address] [address] Performed By: #### 2 4323-8, , 2776-08 ####RADHA LABORATORYCLIA [id number] [place] [id number] [place] Bilirubin [Mass/Vol] 0.4 mg/dL Normal 0.2-1.3 [facility] Comment on above: Order Comment: Speci men Type: BLOOD SPECIMENOrdering Facility: [facility] Address: [address] [place] [address] Performed By: #### 2 4323-8, , 2776-08 ####RADHA LABORATORYCLIA [id number] [place] [id number] [place] Calcium [Mass/Vol] 8.6 mg/dL Normal 8.5-10.2 [facility] Comment on above: Order Comment: Speci men Type: BLOOD SPECIMENOrdering Facility: [facility] Address: [facility] [place] [address] Performed By: #### 2 432-8, , 2776-08 ####[facility] LABORATORYCLIA [id number] [place] [address] [place] Chloride [Moles/Vol] 106 mmol/L Normal 98-107 [facility] Comment on above: Order Comment: Speci men Type: BLOOD SPECIMENOrdering Facility: [facility] Address: [address] [place] [place] [id number] Performed By: #### 2 4323-8, , 2776-08 ####RADHA LABORATORYCLIA [id number] [place] [id number] [place] CO2 [Moles/Vol] 25 mmol/L Normal 22-30 [facility] Comment on above: Order Comment: Speci men Type: BLOOD SPECIMENOrdering Facility: [facility] Address: [address] [place] [id number] Performed By: #### 2 4323-8, , 2776-08 ####RADHA LABORATORYCLIA [id number] [place] [id number] [place] Creatinine [Mass/Vol] 0.84 mg/dL Normal 0.73-1.22 [facility] Comment on above: Order Comment: Amada wing Type: BLOOD SPECIMENOrdering Facility: [facility] Address: [address] [place] [address] Performed By: #### 2 4323-8, 03848-7, 2776-08 ####[facility] LABORATORYCLIA [id number] [place] [address] [place] Creatinine and Glomerular filtration rate.predicted panel (S/P/Bld) 110 mL/min/1.73m??? Normal >=60 [facility] Comment on above: Order Comment: Amada wing Type: BLOOD SPECIMENOrdering Facility: [facility] Address: [address] [place] [address] Result Comment: Daria mated Glomerular Filtration Rate (eGFR) is calculated using the 2020 CKD-EPI creatinine equation. This equation utilizes serum creatinine, sex, and age as parameters. The creatinine assay has traceable calibration to isotope dilution-mass spectrometry. Refer to KDIGO guidelines for clinical interpretation. In patients with unstable renal function, e.g. those with acute kidney injury, the eGFR may not accurately reflect actual GFR. Performed By: #### 2 4323-8, , 2776-08 ####[facility] LABORATORYCLIA [id number] [place] [address] [place] Glucose [Mass/Vol] 79 mg/dL Normal 74-99 [facility] Comment on above: Order Comment: Amada wing Type: BLOOD SPECIMENOrdering Facility: [facility] Address: [address] [place] [address] Result Comment: The [place] Diabetes [employer] (ADA) provides guidance for cutoff values for fasting glucose and random glucose. The ADA defines fasting as no caloric intake for at least 8 hours. Fasting plasma glucose results between 100 to 125 mg/dL indicate increased risk for diabetes (prediabetes). Fasting plasma glucose results greater than or equal to 126 mg/dL meet the criteria for diagnosis of diabetes. In the absence of unequivocal hyperglycemia, results should be confirmed by repeat testing. In a patient with classic symptoms of hyperglycemia or hyperglycemic crisis, random plasma glucose results greater than or equal to 200 mg/dL meet the criteria for diagnosis of diabetes. Reference: Standards of Medical Care in Diabetes 2016, [place] [employer]. Diabetes Care. 2016.39(Suppl 1). Performed By: #### 2 4323-8, , 2776-08 ####RADHA LABORATORYCLIA [id number] [place] [address] [place] Potassium [Moles/Vol] 4.1 mmol/L Normal 3.7-5.1 [facility] Comment on above: Order Comment: Speci men Type: BLOOD SPECIMENOrdering Facility: [facility] Address: [address] [place] [address] Performed By: #### 2 4323-8, , 2776-08 ####RADHA LABORATORYCLIA [id number] [place] [address] [place] Protein [Mass/Vol] 6.0 g/dL Low 6.3-8.0 [facility] Comment on above: Order Comment: Speci men Type: BLOOD SPECIMENOrdering Facility: [facility] Address: [address] [place] [address] Performed By: #### 2 4323-8, , 2776-08 ####RADHA LABORATORYCLIA [id number] [place] [id number] [place] Sodium [Moles/Vol] 139 mmol/L Normal 136-144 [facility] Comment on above: Order Comment: Speci men Type: BLOOD SPECIMENOrdering Facility: [facility] Address: [address] [place] [address] Performed By: #### 2 4323-8, , 2776-08 ####RADHA LABORATORYCLIA [id number] [place] [address] [place] Urea nitrogen [Mass/Vol] 14 mg/dL Normal 9-24 [facility] Comment on above: Order Comment: Speci men Type: BLOOD SPECIMENOrdering Facility: [facility] Address: [address] [place] [address] Performed By: #### 2 4323-8, 73019-0, 2776-08 ####RADHA LABORATORYCLIA [id number] [place] [id number] [place] Magnesium SerPl-mCncon 07-13 Magnesium [Mass/Vol] 2.0 mg/dL Normal 1.7-2.3 [facility] Comment on above: Order Comment: Speci men Type: BLOOD SPECIMENOrdering Facility: [facility] Address: [address] [place] [address] Performed By: #### 2 4323-8, 99316-1, 2776-08 ####RADHA LABORATORYCLIA [id number] [address] [place] No Panel Informationon 07-13 [facility] BACTERIA BLD CULT CULTURE, BLOOD: No growth 5 days [facility] Original Ordering Provider: AMANDA OVALLES [facility] Phosphate SerPl-mCncon 07-13 Phosphate [Mass/Vol] 2.2 mg/dL Low 2.7-4.8 [facility] Comment on above: Order Comment: Speci men Type: BLOOD SPECIMENOrdering Facility: [facility] Address: [address] [place], [place] [address] [address] Performed By: #### 2 4323-8, , 2776-08 ####RADHA LABORATORYCLIA [id number] [address] [place] CBC panel Auto (Bld)on 07-12 Erythrocyte distribution width (RBC) [Ratio] 13.3 % Normal 11.5-15.0 [facility] Comment on above: Order Comment: Speci men Type: BLOOD SPECIMENOrdering Facility: [facility] Address: [address] [place] [address] Performed By: #### 5 8410-2 ####RADHA LABORATORYCLIA [id number] [address] [place] Hematocrit (Bld) [Volume fraction] 31.9 % Low 39.0-51.0 [facility] Comment on above: Order Comment: Speci men Type: BLOOD SPECIMENOrdering Facility: [facility] Address: [address] [place] [address] Performed By: #### 5 8410-2 ####RADHA LABORATORYCLIA [id number] [address] [place] Hemoglobin (Bld) [Mass/Vol] 10.4 g/dL Low 13.0-17.0 [facility] Comment on above: Order Comment: Speci men Type: BLOOD SPECIMENOrdering Facility: [facility] Address: [address] [place] [address] Performed By: #### 5 8410-2 ####[facility] LABORATORYCLIA [id number] [address] MCH (RBC) [Entitic mass] 29.1 pg Normal 26.0-34.0 [facility] Comment on above: Order Comment: Speci men Type: BLOOD SPECIMENOrdering Facility: [facility] Address: [address] [place] [address] Performed By: #### 5 8410-2 ####RADHA LABORATORYCLIA [id number] [address] MCHC (RBC) [Mass/Vol] 32.6 g/dL Normal 30.5-36.0 [facility] Comment on above: Order Comment: Speci men Type: BLOOD SPECIMENOrdering Facility: [facility] Address: [address] [place] [address] Performed By: #### 5 8410-2 ####RADHA LABORATORYCLIA [id number] [address] MCV (RBC) [Entitic vol] 89.4 fL Normal 80.0-100.0 [facility] Comment on above: Order Comment: Speci men Type: BLOOD SPECIMENOrdering Facility: [facility] Address: [address] [place] [address] Performed By: #### 5 8410-2 ####[facility] LABORATORYCLIA [id number] [address] [place] Nucleated RBC (Bld) [#/Vol] 10*3/uL Normal <0.01 [facility] Comment on above: Order Comment: Speci men Type: BLOOD SPECIMENOrdering Facility: [facility] Address: [address] [place] [address] Performed By: #### 5 8410-2 ####RADHA LABORATORYCLIA [id number] [place] [id number] [place] Platelet mean volume (Bld) [Entitic vol] 10.0 fL Normal 9.0-12.7 [facility] Comment on above: Order Comment: Speci men Type: BLOOD SPECIMENOrdering Facility: [facility] Address: [address] [place] [address] Performed By: #### 5 8410-2 ####[facility] LABORATORYCLIA [id number] [place] [id number] [place] Platelets (Bld) [#/Vol] 266 10*3/uL Normal 150-400 [facility] Comment on above: Order Comment: Speci men Type: BLOOD SPECIMENOrdering Facility: [facility] Address: [address] [place] [address] Performed By: #### 5 8410-2 ####[facility] LABORATORYCLIA [id number] [place] [id number] [place] RBC (Bld) [#/Vol] 3.57 10*6/uL Low 4.20-6.00 [facility] Comment on above: Order Comment: Speci men Type: BLOOD SPECIMENOrdering Facility: [facility] Address: [address] [place] [address] Performed By: #### 5 8410-2 ####[facility] LABORATORYCLIA [id number] [place] [id number] [place] WBC (Bld) [#/Vol] 7.93 10*3/uL Normal 3.70-11.00 [facility] Comment on above: Order Comment: Speci men Type: BLOOD SPECIMENOrdering Facility: [facility] Address: [address] [place] [address] Performed By: #### 5 8410-2 ####D[facility] LABORATORYCLIA [id number] [place] [id number] [place] CONSULTon 07-12-2024 CONSULT HNO ID: [id number] Author: AFRICA TANNER RN Service: ? Author Type: Registered Nurse Type: Consults Filed: 07/12/2024 14:30 Note Text: STOMA CARE POST-OPERATIVE ASSESSMENT AND PATIENT EDUCATION Patient Name: Faiza Lozano Date: July 12, 2024 Time: 2:28 PM ET Care Outcome: ostomy education and assessment, pouch change to high output pouch ET's Next Scheduled Visit: 3 days pr prn STOMA ASSESSMENT Stoma type: End ileostomy Diameter: 30 mm Location: RLQ Protrusion: Budded Mucosal condition and color: Red and moist. Italo: No Mucocutaneous Junction: Intact Output: Yes: Flatus and high output Effluent Peristomal Skin: slight erythema to peristomal skin, powder applied Location of Skin Impairment: NA Treatment of Skin Impairment: NA Supportive Tissue: Semisoft Pouching System: Moodsnap New Image 2 1/ soft convex wafer with a high output pouch Time Increment: 1 hour Comments: NA Supplies Given: Yes PATIENT EDUCATION Skin Care Topic: Prevention Observations READINESS TO LEARN Cognitive Ability: Alert and oriented Motivation to Learn: Interested Family Support: Moderate - Family present but overwhelmed Instruction Provided To: Patient and Significant Other Patient Learns Best By: Multiple Methods Factors Affecting Learning: None Physical Limitations Affecting Learning: None LEARNING RESPONSE Diagnosis- Skin Impairment: NA Method of Instruction: Written instruction/Handouts Verbal instruction Demonstration/Hands on Learning Instructional Aids Used: Hand-out(s) Patient/Family Response: Verbalizes understanding of: ostomy care FOLLOW-UP PLAN: Complete Supplemental Material Provided to Patient: Patient Education print outs: Referral Recommendation: Home Health Agency Signature: Africa Tanner RN This is an electronically created document. IF PRINTED, PLEASE DO NOT REMOVE FROM THE CHART OR MODIFY PRINTED COPY. Normal [facility] Comprehensive metabolic 2000 panelon 07-12-2024 Albumin [Mass/Vol] 2.8 g/dL Low 3.9-4.9 [facility] Comment on above: Order Comment: Speci men Type: BLOOD SPECIMENOrdering Facility: [facility] Address: [address] [place] [address] Performed By: #### 2 4797-8, 61616-9, 2776-08 ####[facility] LABORATORYCLIA [id number] [place] [address] [place] ALP [Catalytic activity/Vol] 55 U/L Normal 38-113 [facility] Comment on above: Order Comment: Speci men Type: BLOOD SPECIMENOrdering Facility: [facility] Address: [address] [place] [address] Performed By: #### 2 4323-8, , 2776-08 ####[facility] LABORATORYCLIA [id number] [place] [id number] [place] ALT [Catalytic activity/Vol] 24 U/L Normal 10-54 [facility] Comment on above: Order Comment: Speci men Type: BLOOD SPECIMENOrdering Facility: [facility] Address: [address] [place] [address] Performed By: #### 2 4323-8, , 2776-08 ####[facility] LABORATORYCLIA [id number] [place] [id number] [place] Anion gap [Moles/Vol] 8 mmol/L Normal 8-15 [facility] Comment on above: Order Comment: Speci men Type: BLOOD SPECIMENOrdering Facility: [facility] Address: [address] [place] [address] Performed By: #### 2 4323-8, , 2776-08 ####[facility] LABORATORYCLIA [id number] [place] [id number] [place] AST [Catalytic activity/Vol] 18 U/L Normal 14-40 [facility] Comment on above: Order Comment: Speci men Type: BLOOD SPECIMENOrdering Facility: [facility] Address: [address] [place] [address] Performed By: #### 2 4323-8, , 2776-08 ####[facility] LABORATORYCLIA [id number] [place] [address] [place] Bilirubin [Mass/Vol] 0.4 mg/dL Normal 0.2-1.3 [facility] Comment on above: Order Comment: Speci men Type: BLOOD SPECIMENOrdering Facility: [facility] Address: [address] [place] [address] Performed By: #### 2 4323-8, , 2776-08 ####RADHA LABORATORYCLIA [id number] [place] [address] [place] Calcium [Mass/Vol] 8.1 mg/dL Low 8.5-10.2 [facility] Comment on above: Order Comment: Speci men Type: BLOOD SPECIMENOrdering Facility: [facility] Address: [address] [place], [place] [address] Performed By: #### 2 4323-8, , 2776-08 ####RADHA LABORATORYCLIA [id number] [place] [id number] [place] Chloride [Moles/Vol] 109 mmol/L High 98-107 [facility] Comment on above: Order Comment: Speci men Type: BLOOD SPECIMENOrdering Facility: [facility] Address: [address] [place] [address] Performed By: #### 2 4323-8, , 2776-08 ####RADHA LABORATORYCLIA [id number] [place] [id number] [place] CO2 [Moles/Vol] 25 mmol/L Normal 22-30 [facility] Comment on above: Order Comment: Speci men Type: BLOOD SPECIMENOrdering Facility: [facility] Address: [address] [place], [place] [address] Performed By: #### 2 4323-8, , 2776-08 ####[facility] LABORATORYCLIA [id number] [place] [address] [place] Creatinine [Mass/Vol] 0.83 mg/dL Normal 0.73-1.22 [facility] Comment on above: Order Comment: Speci men Type: BLOOD SPECIMENOrdering Facility: [facility] Address: [address] [place], [place] [address] Performed By: #### 2 4323-8, , 2776-08 ####D[facility] LABORATORYCLIA [id number] [place] [id number] [place] Creatinine and Glomerular filtration rate.predicted panel (S/P/Bld) 110 mL/min/1.73m??? Normal >=60 [facility] Comment on above: Order Comment: Amada wing Type: BLOOD SPECIMENOrdering Facility: [facility] Address: [address] [place] [address] Result Comment: Daria mated Glomerular Filtration Rate (eGFR) is calculated using the 2020 CKD-EPI creatinine equation. This equation utilizes serum creatinine, sex, and age as parameters. The creatinine assay has traceable calibration to isotope dilution-mass spectrometry. Refer to KDIGO guidelines for clinical interpretation. In patients with unstable renal function, e.g. those with acute kidney injury, the eGFR may not accurately reflect actual GFR. Performed By: #### 2 4323-8, , 2776-08 ####[facility] FOR WOMENIA [id number] [place] [id number] [place] Glucose [Mass/Vol] 89 mg/dL Normal 74-99 [facility] Comment on above: Order Comment: Amada wing Type: BLOOD SPECIMENOrdering Facility: [facility] Address: [address] [place] [address] Result Comment: The [place] Diabetes Association (ADA) provides guidance for cutoff values for fasting glucose and random glucose. The ADA defines fasting as no caloric intake for at least 8 hours. Fasting plasma glucose results between 100 to 125 mg/dL indicate increased risk for diabetes (prediabetes). Fasting plasma glucose results greater than or equal to 126 mg/dL meet the criteria for diagnosis of diabetes. In the absence of unequivocal hyperglycemia, results should be confirmed by repeat testing. In a patient with classic symptoms of hyperglycemia or hyperglycemic crisis, random plasma glucose results greater than or equal to 200 mg/dL meet the criteria for diagnosis of diabetes. Reference: Standards of Medical Care in Diabetes 2016, [place] [employer]. Diabetes Care. 2016.39(Suppl 1). Performed By: #### 2 4323-8, 36006-3, 2776-08 ####[facility] LABORATORYCLIA [id number] [place] [id number] [place] Potassium [Moles/Vol] 3.6 mmol/L Low 3.7-5.1 [facility] Comment on above: Order Comment: Speci men Type: BLOOD SPECIMENOrdering Facility: [facility] Address: [address] [place] [address] Performed By: #### 2 4323-8, 81520-9, 2776-08 ####RADHA LABORATORYCLIA [id number] [place] [id number] [place] Protein [Mass/Vol] 5.2 g/dL Low 6.3-8.0 [facility] Comment on above: Order Comment: Speci men Type: BLOOD SPECIMENOrdering Facility: [facility] Address: [address] [place] [address] Performed By: #### 2 4323-8, , 2776-08 ####RADHA LABORATORYCLIA [id number] [place] [id number] [place] Sodium [Moles/Vol] 142 mmol/L Normal 136-144 [facility] Comment on above: Order Comment: Speci men Type: BLOOD SPECIMENOrdering Facility: [facility] Address: [address] [place] [address] Performed By: #### 2 4323-8, , 2776-08 ####RADHA LABORATORYCLIA [id number] [place] [id number] [place] Urea nitrogen [Mass/Vol] 14 mg/dL Normal 9-24 [facility] Comment on above: Order Comment: Speci men Type: BLOOD SPECIMENOrdering Facility: [facility] Address: [address] [place] [address] Performed By: #### 2 4323-8, , 2776-08 ####RADHA LABORATORYCLIA [id number] [place] [id number] [place] Magnesium SerPl-mCncon 07-12 Magnesium [Mass/Vol] 1.9 mg/dL Normal 1.7-2.3 [facility] Comment on above: Order Comment: Speci men Type: BLOOD SPECIMENOrdering Facility: [facility] Address: [address] [place] [address] Performed By: #### 2 4323-8, 15074-1, 2777-1 ####RADHA LABORATORYCLIA [id number] [place] [id number] [facility] [place] NURSING PROGon 07-12-2024 NURSING PROG HNO ID: [id number] Author: ARTHUR SOLANO RN Service: ? Author Type: Registered Nurse Type: Nursing Progress Note Filed: 07/12/2024 15:17 Note Text: Patient and significant other was educated on Lovenox administration and verbalized understanding. Patient was able to provide teach back. Normal [facility] Phosphate SerPl-mCncon 07-12 Phosphate [Mass/Vol] 2.3 mg/dL Low 2.7-4.8 [facility] Comment on above: Order Comment: Speci men Type: BLOOD SPECIMENOrdering Facility: [facility] Address: [address] [place] [address] Performed By: #### 2 4323-8, 03218-7, 2777 ####RADHA LABORATORYCLIA [id number] [place] [id number] [place] CBC panel Auto (Bld)on 07-11 Erythrocyte distribution width (RBC) [Ratio] 13.4 % Normal 11.5-15.0 [facility] Comment on above: Order Comment: Speci men Type: BLOOD SPECIMENOrdering Facility: [facility] Address: [address] [place] [address] Performed By: #### 5 8410-2 ####RADHA LABORATORYCLIA [id number] [place] [id number] [place] Hematocrit (Bld) [Volume fraction] 33.9 % Low 39.0-51.0 [facility] Comment on above: Order Comment: Speci men Type: BLOOD SPECIMENOrdering Facility: [facility] Address: [address] [place] [address] Performed By: #### 5 8410-2 ####RADHA LABORATORYCLIA [id number] [address] [place] Hemoglobin (Bld) [Mass/Vol] 11.3 g/dL Low 13.0-17.0 [facility] Comment on above: Order Comment: Speci men Type: BLOOD SPECIMENOrdering Facility: [facility] Address: [address] [place] [address] Performed By: #### 5 8410-2 ####RADHA LABORATORYCLIA [id number] [address] [place] [facility] MCH (RBC) [Entitic mass] 29.5 pg Normal 26.0-34.0 [facility] Comment on above: Order Comment: Speci men Type: BLOOD SPECIMENOrdering Facility: [facility] Address: [address] [place] [address] Performed By: #### 5 8410-2 ####RADHA LABORATORYCLIA [id number] [address] MCHC (RBC) [Mass/Vol] 33.3 g/dL Normal 30.5-36.0 [facility] Comment on above: Order Comment: Speci men Type: BLOOD SPECIMENOrdering Facility: [facility] Address: [address] [place] [address] Performed By: #### 5 8410-2 ####RADHA LABORATORYCLIA [id number] [address] [place] MCV (RBC) [Entitic vol] 88.5 fL Normal 80.0-100.0 [facility] Comment on above: Order Comment: Speci men Type: BLOOD SPECIMENOrdering Facility: [facility] Address: [address] [place] [address] Performed By: #### 5 8410-2 ####RADHA LABORATORYCLIA [id number] [address] [place] [facility] Nucleated RBC (Bld) [#/Vol] 10*3/uL Normal <0.01 [facility] Comment on above: Order Comment: Speci men Type: BLOOD SPECIMENOrdering Facility: [facility] Address: [address] [place], [place] [address] Performed By: #### 5 8410-2 ####[facility] LABORATORYCLIA [id number] [place] [id number] [place] Platelet mean volume (Bld) [Entitic vol] 10.6 fL Normal 9.0-12.7 [facility] Comment on above: Order Comment: Speci men Type: BLOOD SPECIMENOrdering Facility: [facility] Address: [address] [place] [address] Performed By: #### 5 8410-2 ####[facility] LABORATORYCLIA [id number] [place] [id number] [place] Platelets (Bld) [#/Vol] 233 10*3/uL Normal 150-400 [facility] Comment on above: Order Comment: Speci men Type: BLOOD SPECIMENOrdering Facility: [facility] Address: [address] [place] [address] Performed By: #### 5 8410-2 ####[facility] LABORATORYCLIA [id number] [place] [id number] [place] RBC (Bld) [#/Vol] 3.83 10*6/uL Low 4.20-6.00 [facility] Comment on above: Order Comment: Speci men Type: BLOOD SPECIMENOrdering Facility: [facility] Address: [address] [place] [address] Performed By: #### 5 8410-2 ####[facility] LABORATORYCLIA [id number] [place] [id number] [place] WBC (Bld) [#/Vol] 6.94 10*3/uL Normal 3.70-11.00 [facility] Comment on above: Order Comment: Speci men Type: BLOOD SPECIMENOrdering Facility: [facility] Address: [address] [place] [address] Performed By: #### 5 8410-2 ####D[facility] LABORATORYCLIA [id number] [place] [id number] [place] CONSULTon 07-11-2024 CONSULT HNO ID: [id number] Author: AFRICA TANNER RN Service: ? Author Type: Registered Nurse Type: Consults Filed: 07/11/2024 14:31 Note Text: STOMA CARE POST-OPERATIVE ASSESSMENT AND PATIENT EDUCATION Patient Name: Faiza Lozano Date: July 11, 2024 Time: 2:29 PM ET Care Outcome: ostomy education and assessment ET's Next Scheduled Visit: 07/12 for pouch change STOMA ASSESSMENT Stoma type: End ileostomy Diameter: 30 mm Location: RLQ Protrusion: Budded Mucosal condition and color: Red and moist. Italo: No Mucocutaneous Junction: Not visible at this time Output: Yes: Flatus and Effluent Peristomal Skin: Other: NA Location of Skin Impairment: NA Treatment of Skin Impairment: NA Supportive Tissue: Semisoft Pouching System: Samir New Image 2 08/05 soft convex with drainable pouch Time Increment: 30 minutes Comments: NA Supplies Given: Yes: 4 pouches and accessories PATIENT EDUCATION Skin Care Topic: Prevention Observations READINESS TO LEARN Cognitive Ability: Alert and oriented Motivation to Learn: Eager Interested Family Support: High - Very involved in pt care Instruction Provided To: Patient Patient Learns Best By: Multiple Methods Factors Affecting Learning: None Physical Limitations Affecting Learning: None LEARNING RESPONSE Diagnosis- Skin Impairment: NA Method of Instruction: Written instruction/Handouts Verbal instruction Demonstration/Hands on Learning Instructional Aids Used: Hand-out(s) Patient/Family Response: Verbalizes understanding of: ostomy care FOLLOW-UP PLAN: Reassess Reinforce Supplemental Material Provided to Patient: Patient Education print outs: Referral Recommendation: Home Health Agency Signature: Africa Tanner RN This is an electronically created document. IF PRINTED, PLEASE DO NOT REMOVE FROM THE CHART OR MODIFY PRINTED COPY. Normal [facility] CONSULT HNO ID: [id number] Author: AFRICA TANNER RN Service: ? Author Type: Registered Nurse Type: Consults Filed: 07/11/2024 14:28 Note Text: [facility] [address] [id number] [facility] [address] Dept: [phone] OSTOMY SUPPLY ORDER FORM Patient: Faiza Lozano Patient Address: [address] [place] [address] [address] [facility] [address] Home Phone Number:[email or web address] Gender: male Date of : 1980 Item and Description Qty 30 Day Use Pouch: Samir: New Image 2 ? Beige Lock 'n Roll, drainable pouch #44573 30 day use - 2 Boxes Wafer: Samir: New Image CeraPlus 2 08/05 Convex, with tape # [id number] 30 day use - 2 Boxes Adhesive Removers: Samir Adapt wipes #7760 30 day use - 2 Boxes 2 Boxes 2 Boxes 2 Boxes Attending Physician: Dr. Ovalles For immediate authorization, please contact the physician?s office. ----- To order your supplies you may call [employer] @ SIGNATURE: Africa Tanner RN PATIENT NAME: Faiza Lozano DATE: July 11, 2024 TIME: 2:27 PM CONTACT #: [phone] [facility] CONSULT PROGon 07-11-2024 CONSULT PROG HNO ID: [id number] Author: Jayson ALSTON MD Service: Infectious Disease Author Type: Physician Type: Consult Progress Note Filed: 07/11/2024 16:04 Note Text: ID SERVICE CONSULT PROGRESS NOTE SERVICE DATE: 07/11/2024 SERVICE TIME: 3:56 PM Subjective INTERVAL HPI: Progress reviewed, the patient states that he feels much improved. Has been afebrile. Current Facility-Administered Medications Medication Dose Route Frequency NaCl 0.9% iv flush bag 20 mL INTRAVENOUS PRN dextrose 40 % 15 g 15 g ORAL PRN Or glucagon 1 mg injection 1 mg INTRAMUSCULAR PRN Or dextrose 10% iv bolus 12.5 g INTRAVENOUS PRN insulin lispro injection (rapid acting) (ADMElog) SUBCUTANEOUS q 6 H albuterol 2.5 mg /3 mL (0.083 %) 2.5 mg (PROVENTIL) 2.5 mg INHALATION q 6 H PRN ondansetron 4 mg tab(s) (ZOFRAN) 4 mg ORAL q 6 H PRN Or ondansetron (PF) 4 mg injection (ZOFRAN) 4 mg INTRAVENOUS q 6 H PRN enoxaparin 40 mg injection (LOVENOX) 40 mg SUBCUTANEOUS q 24 HR naloxone 0.1 mg injection (NARCAN) 0.1 mg INTRAVENOUS q 2 MIN PRN OLANZapine 5 mg tab(s) (ZYPREXA) 5 mg ORAL DAILY FLUoxetine (PROzac) cap(s) 30 mg 30 mg ORAL DAILY phenol 1 [place] (CHLORASEPTIC) 1 [place] MUCOUS MEMBRANE (TOPICAL MOUTH AND THROAT) q [address] 40 mg tab(s) (PROTONIX) 40 mg ORAL DAILY (6 AM) acetaminophen 1,000 mg tab(s) (TYLENOL) 1,000 mg ORAL q 6 H HYDROmorphone 0.2 mg injection (DILAUDID) 0.2 mg INTRAVENOUS q 3 H PRN piperacillin-tazobact am iv piggyback 3.375 g in dextrose (iso-osmotic) 50 mL (ZOSYN) 3.375 g INTRAVENOUS q 6 H predniSONE (DELTASONE) tab(s) 30 mg 30 mg ORAL DAILY Objective PHYSICAL EXAM: Physical Exam Performed: GENERAL: Alert, no distress, cooperative LUNGS: Lungs clear to auscultation, Good diaphragmatic excursion CARDIAC: Normal S1 and S2; no rubs, murmurs, or gallops ABDOMEN: Soft nondistended. BP 101/61 Pulse 47 Temp (Src) 97.5 (Oral) Resp 12 Ht 5' 9 (1.75m) Wt 159 lb 9.8 oz (72.4kg) SpO2 97% BMI 23.56 kg/(m2). O2 Therapy: Room Air DATA: Diagnostic tests reviewed for today's visit: Most recent labs and imaging results. Latest Reference Range AND Units 07/07/24 04:07 07/08/24 04:50 07/09/24 05:18 07/10/24 05:32 07/11/24 05:37 WBC 3.70 - 11.00 k/uL 31.83 (H) 21.31 (H) 12.20 (H) 7.20 6.94 (H): Data is abnormally high Impression/Recommenda tions Principal Problem: Septic shock (HCC) (POA: Yes) Resolved : Crohn's colitis, with intestinal obstruction and perforation (HCC) (POA: Yes) Liver abscess (POA: Yes) Post exploratory laparotomy, resection of the ileocolic anastomosis and drainage of intra-abdominal abscess. He had creation of end ileostomy also on July 06, 2024. Plan; requested PICC line and has been placed. continue intravenous Zosyn for 4 weeks postop He will require CT of the abdomen pelvis prior to discontinuation of IV antimicrobial therapy. I will follow him as outpatient also. SIGNATURE: Jayson Alston MD PATIENT NAME: Faiza Lozano DATE: July 11, 2024 TIME: 3:56 PM PAGER: Normal [facility] Comprehensive metabolic 2000 panelon 07-11-2024 Albumin [Mass/Vol] 2.7 g/dL Low 3.9-4.9 [facility] Comment on above: Order Comment: Speci men Type: BLOOD SPECIMENOrdering Facility: [facility] Address: [address] [place] [address] Performed By: #### 2 4323-8, , 2776-08 ####[facility] LABORATORYCLIA [id number] [place] [address] [place] ALP [Catalytic activity/Vol] 57 U/L Normal 38-113 [facility] Comment on above: Order Comment: Speci men Type: BLOOD SPECIMENOrdering Facility: [facility] Address: [address] [place] [address] Performed By: #### 2 4323-8, , 2776-08 ####[facility] LABORATORYCLIA [id number] [place] [address] [place] ALT [Catalytic activity/Vol] Normal [facility] Comment on above: Order Comment: Speci men Type: BLOOD SPECIMENOrdering Facility: [facility] Address: [address] [place] [address] Result Comment: Unab le to assay due to interference from hemolysis. Suggest reorder as clinically indicated. Performed By: #### 2 4323-8, , 2776-08 ####[facility] LABORATORYCLIA [id number] [place] [id number] [place] Anion gap [Moles/Vol] 12 mmol/L Normal 8-15 [facility] Comment on above: Order Comment: Speci men Type: BLOOD SPECIMENOrdering Facility: [facility] Address: [address] [place] [address] Performed By: #### 2 4323-8, , 2776- ####[facility] LABORATORYCLIA [id number] [place] [address] [place] AST [Catalytic activity/Vol] Normal [facility] Comment on above: Order Comment: Speci men Type: BLOOD SPECIMENOrdering Facility: [facility] Address: [address] [place] [address] Result Comment: Unab le to assay due to interference from hemolysis. Suggest reorder as clinically indicated. Performed By: #### 2 4323-8, , 2776-08 ####[facility] LABORATORYCLIA [id number] [place] [id number] [place] Bilirubin [Mass/Vol] 0.5 mg/dL Normal 0.2-1.3 [facility] Comment on above: Order Comment: Speci men Type: BLOOD SPECIMENOrdering Facility: [facility] Address: [address] [place] [address] Performed By: #### 2 4323-8, , 2776-08 ####RAD[facility] LABORATORYCLIA [id number] [place] [address] [place] Calcium [Mass/Vol] 8.2 mg/dL Low 8.5-10.2 [facility] Comment on above: Order Comment: Speci men Type: BLOOD SPECIMENOrdering Facility: [facility] Address: [address] [place] [address] Performed By: #### 2 4323-8, , 2776-08 ####RAD[facility] LABORATORYCLIA [id number] [place] [id number] [place] Chloride [Moles/Vol] 107 mmol/L Normal 98-107 [facility] Comment on above: Order Comment: Speci men Type: BLOOD SPECIMENOrdering Facility: [facility] Address: [address] [place] [address] Performed By: #### 2 4323-8, , 2776-08 ####[facility] LABORATORYCLIA [id number] [place] [id number] [place] CO2 [Moles/Vol] 20 mmol/L Low 22-30 [facility] Comment on above: Order Comment: Speci men Type: BLOOD SPECIMENOrdering Facility: [facility] Address: [address] [place] [address] Performed By: #### 2 4323-8, , 2776-08 ####[facility] LABORATORYCLIA [id number] [place] [id number] [place] Creatinine [Mass/Vol] 0.77 mg/dL Normal 0.73-1.22 [facility] Comment on above: Order Comment: Amada men Type: BLOOD SPECIMENOrdering Facility: [facility] Address: [address] [place] [address] Performed By: #### 2 4323-8, , 2776-08 ####[facility] LABORATORYCLIA [id number] [place] [id number] [place] Creatinine and Glomerular filtration rate.predicted panel (S/P/Bld) 113 mL/min/1.73m??? Normal >=60 [facility] Comment on above: Order Comment: Amada men Type: BLOOD SPECIMENOrdering Facility: [facility] Address: [address] [place] [address] Result Comment: Daria mated Glomerular Filtration Rate (eGFR) is calculated using the 2020 CKD-EPI creatinine equation. This equation utilizes serum creatinine, sex, and age as parameters. The creatinine assay has traceable calibration to isotope dilution-mass spectrometry. Refer to KDIGO guidelines for clinical interpretation. In patients with unstable renal function, e.g. those with acute kidney injury, the eGFR may not accurately reflect actual GFR. Performed By: #### 2 4323-8, , 2776-08 ####[facility] LABORATORYCLIA [id number] [place] [id number] [place] Glucose [Mass/Vol] 91 mg/dL Normal 74-99 [facility] Comment on above: Order Comment: Amada wing Type: BLOOD SPECIMENOrdering Facility: [facility] Address: [address] [place] [address] Result Comment: The [place] Diabetes Association (ADA) provides guidance for cutoff values for fasting glucose and random glucose. The ADA defines fasting as no caloric intake for at least 8 hours. Fasting plasma glucose results between 100 to 125 mg/dL indicate increased risk for diabetes (prediabetes). Fasting plasma glucose results greater than or equal to 126 mg/dL meet the criteria for diagnosis of diabetes. In the absence of unequivocal hyperglycemia, results should be confirmed by repeat testing. In a patient with classic symptoms of hyperglycemia or hyperglycemic crisis, random plasma glucose results greater than or equal to 200 mg/dL meet the criteria for diagnosis of diabetes. Reference: Standards of Medical Care in Diabetes 2016, [place] Diabetes Association. Diabetes Care. 2016.39(Suppl 1). Performed By: #### 2 4323-8, , 2776-08 ####[facility] LABORATORYCLIA [id number] [place] [id number] [place] Potassium [Moles/Vol] Normal [facility] Comment on above: Order Comment: Amada wing Type: BLOOD SPECIMENOrdering Facility: [facility] Address: [address] [place] [address] Result Comment: Unab le to assay due to interference from hemolysis. Suggest reorder as clinically indicated. Performed By: #### 2 4323-8, , 2776-08 ####[facility] LABORATORYCLIA [id number] [place] [id number] [place] Protein [Mass/Vol] 5.4 g/dL Low 6.3-8.0 [facility] Comment on above: Order Comment: Amada wing Type: BLOOD SPECIMENOrdering Facility: [facility] Address: [address] [place] [address] Performed By: #### 2 4323-8, , 2776-08 ####RAD[facility] LABORATORYCLIA [id number] [place] [id number] [place] Sodium [Moles/Vol] 139 mmol/L Normal 136-144 [facility] Comment on above: Order Comment: Amada wing Type: BLOOD SPECIMENOrdering Facility: [facility] Address: [address] [place] [address] Performed By: #### 2 4323-8, , 2776-08 ####[facility] LABORATORYCLIA [id number] [place] [address] [place] Urea nitrogen [Mass/Vol] 14 mg/dL Normal 9-24 [facility] Comment on above: Order Comment: Speci men Type: BLOOD SPECIMENOrdering Facility: [facility] Address: [address] [place] [address] Performed By: #### 2 4323-8, 34260-6, 2777-1 ####DUNK[facility] LABORATORYCLIA [id number] [place] [id number] [place] Magnesium SerPl-mCncon 07-11 Magnesium [Mass/Vol] 1.9 mg/dL Normal 1.7-2.3 [facility] Comment on above: Order Comment: Speci men Type: BLOOD SPECIMENOrdering Facility: [facility] Address: [address] [place] [address] Performed By: #### 2 4323-8, 79212-3, 2777-1 ####DUN[facility] LABORATORYCLIA [id number] [place] [id number] [place] NURSING PROGon 07-11-2024 NURSING PROG HNO ID: [id number] Author: JESSICA GONZÁLES RN Service: PICC Team Author Type: Registered Nurse Type: Nursing Progress Note Filed: 07/11/2024 14:47 Note Text: PATIENT EDUCATION TOPIC: PROCEDURE / SURGERY: Procedure/Surgery: PICC placement PATIENT NAME: Faiza Lozano PATIENT LOCATION: [place] [address] READINESS TO LEARN COGNITIVE ABILITY: Alert and oriented MOTIVATION TO LEARN: Interested FAMILY SUPPORT: Unable to assess - Family not present INSTRUCTION PROVIDED TO: Patient PATIENT LEARNS BEST BY: Written Instruction - Hand-outs Verbal Instruction FACTORS AFFECTING LEARNING: None PHYSICAL LIMITATIONS AFFECTING LEARNING: None LEARNING RESPONSE DIAGNOSIS: ADULT: PICC placement PATIENT/FAMILY RESPONSE: Verbalizes understanding of: POST-PROCEDURE INSTRUCTIONS-Correct actions to take to reduce post procedure complications PRE-PROCEDURE INSTRUCTIONS-Correct action to take to follow pre-procedure instructions METHOD OF INSTRUCTION: Written instruction/Handouts Verbal instruction FOLLOW-UP PLAN: Complete - No need for follow-up INSTRUCTIONAL AIDS USED: NA SUPPLEMENTAL MATERIAL PROVIDED TO PATIENT: None REFERRAL (RECOMMENDATION): None Electronically Signed By: Jessica Gonzáles [facility] NUTRITIONon 07-11-2024 NUTRITION HNO ID: [id number] Author: MADY WELLER RD Service: NST-Nutrition Support Team Author Type: Registered Dietitian Type: Nutrition Filed: 07/11/2024 13:28 Note Text: NUTRITION THERAPY PROGRESS NOTE SERVICE DATE: 07/11/2024 SERVICE TIME: 1:27 PM Nutrition Assessment: Recommended Malnutrition Diagnosis: Moderate Protein-Calorie Malnutrition (07/08/24 1350 : Adam Miner RD) Care Plan: Continue current diet GI Soft Supplements: Ensure Max Monitor and Evaluation: Meet greater than 75% of estimated needs, Monitor bowel function, Monitor fluid/electrolyte balance, Monitor labs, I/Os, vital signs, weight Interval History: Pt tolerating diet well at breakfast Discussed GI Soft diet and reviewed menu GI Symptoms: None Ostomy Amount: Improved (1200 ml) Ostomy Consistency: Watery Intake History: Current Nutrition Intake: Less than 50% estimated energy needs Current Intake Over time: Greater than or equal to 5 days Average intake over: 3 days (Now on diet and tolerating GI soft with supplement) Dosing Weight: 68.9 kg (152 lb) Dosing Weight Type: Admit weight Estimated kilocalorie needs: 4729-7803 Calorie Calculation Method: 25-30 kcals/kg Estimated protein needs (grams): 90-117 Grams protein determined by: 1.3 - 1.7 g/kg Diet Orders (From admission, onward) Start Ordered 07/11/24 1330 DIET SUPPLEMENTS START NOW Question Answer Comment Supplement 1 (19 years and up) ENSURE MAX VANILLA Supplement 1 Frequency 7. BREAKFAST, LUNCH, DINNER 07/11/24 1327 07/11/24 0645 DIET GASTRO INTESTINAL START NOW Question: Gastro Intestinal Answer: FIBER CONTROLLED 07/11/24 0630 Anthropometrics: Height: 175.3 cm (5' 9 ) Weight: 72.4 kg (159 lb 9.8 oz) Body mass index is 23.57 kg/m?. MNT Billing: $ Reassessment: 1-15 minutes SIGNATURE: Mady Weller RD PATIENT NAME: Faiza Lozano DATE: July 11, 2024 TIME: 1:27 PM [facility] POTASSIUMon 12-10-2024 Potassium [Moles/Vol] 3.4 mmol/L Low 3.7-5.1 [facility] Comment on above: Order Comment: Spec men Type: BLOOD SPECIMENOrdering Facility: [facility] Address: [address] [place] [address] Performed By: #### K 1 ####[facility] LABORATORYCLIA [id number] [place] [address] [place] PT EDon 07-11-2024 PT ED HNO ID: [id number] Author: MADY WELLER RD Service: NST-Nutrition Support Team Author Type: Registered Dietitian Type: Patient Education Filed: 07/11/2024 13:29 Note Text: NUTRITION THERAPY PATIENT EDUCATION SERVICE DATE: 07/11/2024 SERVICE TIME: 1:29 PM TOPIC: Diet: GI Soft/ostomy diet LEARNING ASSESSMENT Individuals Assessed: Patient Preferred Learning Method: Verbal Instruction and Written Instruction Barriers to Learning: None Evident LEARNING RESPONSE Instruction Provided to: Patient Patient / Family Response: Performs Independently and Verbalizes Understanding Method of Instruction: Written instruction/Handouts Verbal instruction Material(s) Provided to Patient: G/L for GI Soft Diet and Education Materials Provided Nutrition Education [facility]: Guidelines for Gastrointestinal Soft Diet Follow-Up Plan: Follow-up with Primary Care Referral (Recommendation): Primary Care Provider MNT Billing: $ Reassessment: 1-15 minutes SIGNATURE: Mady Weller RD PATIENT NAME: Faiza Lozano DATE: July 11, 2024 TIME: 1:29 PM PAGER: Normal [facility] Phosphate SerPl-mCncon 07-11 Phosphate [Mass/Vol] 3.0 mg/dL Normal 2.7-4.8 [facility] Comment on above: Order Comment: [facility] Type: BLOOD SPECIMENOrdering Facility: [facility] Address: [address] [place], [place] [address] [address] Performed By: #### 2 4323-8, 29078-5, 2777-1 ####[facility] LABORATORYCLIA [id number] [address] [place] ANES POSTPROC EVALon 024 ANES POSTPROC EVAL HNO ID: [id number] Author: SHAKIRA FLOWER MD Service: Anesthesiology Author Type: Anesthesiologist Type: Anesthesia Postprocedure Evaluation Filed: 07/10/2024 08:26 Note Text: POST ANESTHESIA EVALUATION NOTE : 1980 Procedure Summary Date: 07/06/24 Room / Location: [facility] OR06 / [facility] OR Anesthesia Start: 2023 Anesthesia Stop: 2346 Procedure: EXPLORATORY LAPAROTOMY ADULT (Abdomen) Diagnosis: Colon perforation (HCC) (Colon perforation (HCC) [K63.1]) Surgeons: Amanda Ovalles MD Responsible Provider: Shakira Flower MD Anesthesia Type: general ASA Status: 4 - Emergent Anesthesia Type: general Airway Type: ETT Last Vitals Vitals Value Taken Time BP 93/54 07/10/24 0758 Temp 36.5 ?C (97.7 ?F) 07/10/24 0758 Pulse 43 07/10/24 0758 Resp 18 07/09/24 2312 SpO2 98 % 07/10/24 0758 Post Anesthesia Patient Status Patient Evaluation: floor. Anticipated Disposition: inpatient floor planned admission. Neurological Status: aware and responsive. Pulmonary Status: breathing comfortably on room air Airway Control: returned to baseline unsupported. Cardiovascular Status: stable. Pain Management: clinically adequate Postoperative Hydration: acceptable. Intraoperative Events: no significant anesthesia events Post Operative Nausea/Vomiting Status: no significant post operative nausea or vomiting Recommendation: continue current plan of care. Anesthesia Observations No Documentation SIGNATURE: Shakira Flower MD PATIENT NAME: Faiza Lozano DATE: July 10, 2024 TIME: 8:26 AM CSN: [id number] Normal [facility] CBC panel Auto (Bld)on 07-10 Erythrocyte distribution width (RBC) [Ratio] 13.6 % Normal 11.5-15.0 [facility] Comment on above: Order Comment: Speci men Type: BLOOD SPECIMENOrdering Facility: [facility] Address: [address] [place] [address] Performed By: #### 5 8410-2 ####[facility] LABORATORYCLIA [id number] [place] [address] [place] Hematocrit (Bld) [Volume fraction] 33.8 % Low 39.0-51.0 [facility] Comment on above: Order Comment: Speci men Type: BLOOD SPECIMENOrdering Facility: [facility] Address: [address] [place] [address] Performed By: #### 5 8410-2 ####[facility] LABORATORYCLIA [id number] [address] [place] Hemoglobin (Bld) [Mass/Vol] 10.8 g/dL Low 13.0-17.0 [facility] Comment on above: Order Comment: Speci men Type: BLOOD SPECIMENOrdering Facility: [facility] Address: [address] [place] [address] Performed By: #### 5 8410-2 ####[facility] LABORATORYCLIA [id number] [address] MCH (RBC) [Entitic mass] 29.4 pg Normal 26.0-34.0 [facility] Comment on above: Order Comment: Speci men Type: BLOOD SPECIMENOrdering Facility: [facility] Address: [address] [place] [address] Performed By: #### 5 8410-2 ####[facility] LABORATORYCLIA [id number] [address] MCHC (RBC) [Mass/Vol] 32.0 g/dL Normal 30.5-36.0 [facility] Comment on above: Order Comment: Speci men Type: BLOOD SPECIMENOrdering Facility: [facility] Address: [address] [place] [address] Performed By: #### 5 8410-2 ####[facility] LABORATORYCLIA [id number] [address] [place] MCV (RBC) [Entitic vol] 92.1 fL Normal 80.0-100.0 [facility] Comment on above: Order Comment: Speci men Type: BLOOD SPECIMENOrdering Facility: [facility] Address: [address] [place] [address] Performed By: #### 5 8410-2 ####[facility] LABORATORYCLIA [id number] [place] [address] [place] Nucleated RBC (Bld) [#/Vol] 10*3/uL Normal <0.01 [facility] Comment on above: Order Comment: Speci men Type: BLOOD SPECIMENOrdering Facility: [facility] Address: [address] [place] [address] Performed By: #### 5 8410-2 ####[facility] LABORATORYCLIA [id number] [place] [id number] [place] Platelet mean volume (Bld) [Entitic vol] 10.1 fL Normal 9.0-12.7 [facility] Comment on above: Order Comment: Speci men Type: BLOOD SPECIMENOrdering Facility: [facility] Address: [address] [place] [address] Performed By: #### 5 8410-2 ####[facility] LABORATORYCLIA [id number] [place] [address] [place] Platelets (Bld) [#/Vol] 218 10*3/uL Normal 150-400 [facility] Comment on above: Order Comment: Speci men Type: BLOOD SPECIMENOrdering Facility: [facility] Address: [address] [place] [address] Performed By: #### 5 8410-2 ####[facility] LABORATORYCLIA [id number] [place] [address] [place] RBC (Bld) [#/Vol] 3.67 10*6/uL Low 4.20-6.00 [facility] Comment on above: Order Comment: Speci men Type: BLOOD SPECIMENOrdering Facility: [facility] Address: [address] [place] [address] Performed By: #### 5 8410-2 ####[facility] LABORATORYCLIA [id number] [place] [id number] [place] WBC (Bld) [#/Vol] 7.20 10*3/uL Normal 3.70-11.00 [facility] Comment on above: Order Comment: Speci men Type: BLOOD SPECIMENOrdering Facility: [facility] Address: [address] [place] [address] Performed By: #### 5 8410-2 ####[facility] LABORATORYCLIA [id number] [place] [id number] [facility] CONSULTon 07-10-2024 CONSULT HNO ID: [id number] Author: AFRICA TANNER RN Service: ? Author Type: Registered Nurse Type: Consults Filed: 07/11/2024 09:29 Note Text: STOMA CARE POST-OPERATIVE ASSESSMENT AND PATIENT EDUCATION Patient Name: Faiza Lozano Date: July 10, 2024 Time: 1500 ET Care Outcome: ostomy education and assessment ET's Next Scheduled Visit: 07/11/24 STOMA ASSESSMENT Stoma type: End ileostomy Diameter: 30 mm Location: RLQ Protrusion: Budded Mucosal condition and color: Red and moist. Italo: No Mucocutaneous Junction: Intact Output: Yes: Flatus and Effluent Peristomal Skin: Clear and intact Location of Skin Impairment: NA Treatment of Skin Impairment: NA Supportive Tissue: Semisoft Pouching System: [place] New Image 2 1/ soft convex with a drainable pouch Time Increment: 1 hour Comments: NA Supplies Given: No PATIENT EDUCATION Skin Care Topic: Prevention Observations READINESS TO LEARN Cognitive Ability: Alert and oriented Motivation to Learn: Eager Interested Family Support: High - Very involved in pt care Instruction Provided To: Patient and Significant Other Patient Learns Best By: Multiple Methods Factors Affecting Learning: None Physical Limitations Affecting Learning: None LEARNING RESPONSE Diagnosis- Skin Impairment: NA Method of Instruction: Written instruction/Handouts Verbal instruction Demonstration/Hands on Learning Instructional Aids Used: Hand-out(s) Patient/Family Response: Verbalizes understanding of education. - Pt and sig other verbalized understanding of pouch change and pouch emptying and were able to do a verbal teach back FOLLOW-UP PLAN: Reassess Reinforce Supplemental Material Provided to Patient: Patient Education print outs: Referral Recommendation: Home Health Agency Signature: Africa Tanner RN This is an electronically created document. IF PRINTED, PLEASE DO NOT REMOVE FROM THE CHART OR MODIFY PRINTED COPY. Normal [facility] CONSULT PROGon 07-10-2024 CONSULT PROG HNO ID: [id number] Author: YOHAN KINCAID josé Service: Pharmacy Author Type: Pharmacist Type: Consult Progress Note Filed: 07/10/2024 06:44 Note Text: PHARMACY IV to PO ASSESSMENT Patient Name: Faiza Lozano Admission Date: 07/06/2024 Date of Consult: 07/10/2024 Time of Consult: 6:41 AM In accordance with the inpatient pharmacy and therapeutics policy the following medication changes have been made: pantoprazole 40 mg IV q24h converted to pantoprazole 40 mg PO q24h, per IV to PO guidelines. Signature: Yohan Kincaid [facility] July 10, 2024 6:41 AM Date/Time: 07/10/2024 6:41 AM Normal [facility] Comprehensive metabolic 2000 panelon 07-10-2024 Albumin [Mass/Vol] 3.0 g/dL Low 3.9-4.9 [facility] Comment on above: Order Comment: Speci men Type: BLOOD SPECIMENOrdering Facility: [facility] Address: [address] [place] [address] Performed By: #### 2 4323-8, , 2776-08 ####[facility] LABORATORYCLIA [id number] [place] [address] [place] ALP [Catalytic activity/Vol] 63 U/L Normal 38-113 [facility] Comment on above: Order Comment: Speci men Type: BLOOD SPECIMENOrdering Facility: [facility] Address: [address] [place] [address] Performed By: #### 2 4323-8, , 2776-08 ####[facility] LABORATORYCLIA [id number] [place] [address] [place] ALT [Catalytic activity/Vol] 27 U/L Normal 10-54 [facility] Comment on above: Order Comment: Speci men Type: BLOOD SPECIMENOrdering Facility: [facility] Address: [address] [place] [address] Performed By: #### 2 4323-8, , 2776-08 ####[facility] LABORATORYCLIA [id number] [place] [address] [place] Anion gap [Moles/Vol] 11 mmol/L Normal 8-15 [facility] Comment on above: Order Comment: Speci men Type: BLOOD SPECIMENOrdering Facility: [facility] Address: [address] [place] [address] Performed By: #### 2 4323-8, , 2776-08 ####[facility] LABORATORYCLIA [id number] [place] [id number] [place] AST [Catalytic activity/Vol] 21 U/L Normal 14-40 [facility] Comment on above: Order Comment: Speci men Type: BLOOD SPECIMENOrdering Facility: [facility] Address: [address] [place] [address] Performed By: #### 2 4323-8, , 2776-08 ####[facility] LABORATORYCLIA [id number] [place] [id number] [place] Bilirubin [Mass/Vol] 0.5 mg/dL Normal 0.2-1.3 [facility] Comment on above: Order Comment: Speci men Type: BLOOD SPECIMENOrdering Facility: [facility] Address: [address] [place] [address] Performed By: #### 2 4323-8, , 2776-08 ####[facility] LABORATORYCLIA [id number] [place] [id number] [place] Calcium [Mass/Vol] 8.6 mg/dL Normal 8.5-10.2 [facility] Comment on above: Order Comment: Speci men Type: BLOOD SPECIMENOrdering Facility: [facility] Address: [address] [place] [address] Performed By: #### 2 4323-8, , 2776-08 ####[facility] LABORATORYCLIA [id number] [place] [id number] [place] Chloride [Moles/Vol] 109 mmol/L High 98-107 [facility] Comment on above: Order Comment: Speci men Type: BLOOD SPECIMENOrdering Facility: [facility] Address: [address] [place] [address] Performed By: #### 2 4323-8, , 2776-08 ####[facility] LABORATORYCLIA [id number] [place] [id number] [place] CO2 [Moles/Vol] 24 mmol/L Normal 22-30 [facility] Comment on above: Order Comment: Amada wing Type: BLOOD SPECIMENOrdering Facility: [facility] Address: [address] [place] [address] Performed By: #### 2 4323-8, 55633-6, 2776-08 ####[facility] LABORATORYCLIA [id number] [place] [id number] [place] Creatinine [Mass/Vol] 0.90 mg/dL Normal 0.73-1.22 [facility] Comment on above: Order Comment: Amada wing Type: BLOOD SPECIMENOrdering Facility: [facility] Address: [address] [place] [address] Performed By: #### 2 4323-8, , 2776-08 ####[facility] LABORATORYCLIA [id number] [place] [id number] [place] Creatinine and Glomerular filtration rate.predicted panel (S/P/Bld) 107 mL/min/1.73m??? Normal >=60 [facility] Comment on above: Order Comment: Amada wing Type: BLOOD SPECIMENOrdering Facility: [facility] Address: [address] [place] [address] Result Comment: Daria mated Glomerular Filtration Rate (eGFR) is calculated using the 2020 CKD-EPI creatinine equation. This equation utilizes serum creatinine, sex, and age as parameters. The creatinine assay has traceable calibration to isotope dilution-mass spectrometry. Refer to KDIGO guidelines for clinical interpretation. In patients with unstable renal function, e.g. those with acute kidney injury, the eGFR may not accurately reflect actual GFR. Performed By: #### 2 4323-8, 35308-2, 2776-08 ####[facility] LABORATORYCLIA [id number] [place] [id number] [place] Glucose [Mass/Vol] 81 mg/dL Normal 74-99 [facility] Comment on above: Order Comment: Amada wing Type: BLOOD SPECIMENOrdering Facility: [facility] Address: [address] [place] [address] Result Comment: The [place] Diabetes Association (ADA) provides guidance for cutoff values for fasting glucose and random glucose. The ADA defines fasting as no caloric intake for at least 8 hours. Fasting plasma glucose results between 100 to 125 mg/dL indicate increased risk for diabetes (prediabetes). Fasting plasma glucose results greater than or equal to 126 mg/dL meet the criteria for diagnosis of diabetes. In the absence of unequivocal hyperglycemia, results should be confirmed by repeat testing. In a patient with classic symptoms of hyperglycemia or hyperglycemic crisis, random plasma glucose results greater than or equal to 200 mg/dL meet the criteria for diagnosis of diabetes. Reference: Standards of Medical Care in Diabetes 2016, [place] Diabetes Association. Diabetes Care. 2016.39(Suppl 1). Performed By: #### 2 4323-8, , 2776-08 ####[facility] LABORATORYCLIA [id number] [place] [address] [place] Potassium [Moles/Vol] 3.6 mmol/L Low 3.7-5.1 [facility] Comment on above: Order Comment: Speci men Type: BLOOD SPECIMENOrdering Facility: [facility] Address: [address] [place] [address] Performed By: #### 2 4323-8, , 2776-08 ####[facility] LABORATORYCLIA [id number] [place] [id number] [place] Protein [Mass/Vol] 5.7 g/dL Low 6.3-8.0 [facility] Comment on above: Order Comment: Speci men Type: BLOOD SPECIMENOrdering Facility: [facility] Address: [address] [place] [address] Performed By: #### 2 4323-8, , 2776-08 ####[facility] LABORATORYCLIA [id number] [place] [address] [place] Sodium [Moles/Vol] 144 mmol/L Normal 136-144 [facility] Comment on above: Order Comment: Speci men Type: BLOOD SPECIMENOrdering Facility: [facility] Address: [address] [place] [address] Performed By: #### 2 4323-8, 20441-0, 2777-1 ####[facility] LABORATORYCLIA [id number] [place] [address] [place] Urea nitrogen [Mass/Vol] 20 mg/dL Normal 9-24 [facility] Comment on above: Order Comment: Speci men Type: BLOOD SPECIMENOrdering Facility: [facility] Address: [address] [place], [place] [address] [id number] Performed By: #### 2 4323-8, 06401-6, 2777- ####[facility] LABORATORYCLIA [id number] [place] [id number] [facility] OF [place] Magnesium SerPl-ncon 07-10 Magnesium [Mass/Vol] 2.0 mg/dL Normal 1.7-2.3 [facility] Comment on above: Order Comment: Speci men Type: BLOOD SPECIMENOrdering Facility: [facility] Address: [address] [place], [place] [address] [id number] Performed By: #### 2 4323-8, 88726-1, 2777 ####[facility] LABORATORYCLIA [id number] [place] [id number] [facility] OF [place]U Phosphate SerPl-mCncon 07-10 Phosphate [Mass/Vol] 3.6 mg/dL Normal 2.7-4.8 [facility] Comment on above: Order Comment: Speci men Type: BLOOD SPECIMENOrdering Facility: [facility] Address: [address] [place], [place] [address] [id number] Performed By: #### 2 4323-8, 42863-8, 2777 ####[facility] LABORATORYCLIA [id number] [place] [address] [place] THERAPY NTon 07-10-2024 THERAPY NT HNO ID: [id number] Author: INGRID KRAUS PT Service: Physical Therapy Author Type: Physical Therapist Type: Therapy (PT/OT/Speech/Resp) Filed: 07/10/2024 13:12 Note Text: Physical Therapy Evaluation Summary SERVICE DATE: 07/10/2024 SERVICE TIME: 1113 to 1137 ROOM: [place] [address] PT 6 Clicks Score: 24 DISCHARGE RECOMMENDATIONS Home ASSESSMENT Response to Therapy Interventions: Good Participation in Activities patient walks with steady gait 400' PRECAUTIONS Abdominal, Bed/Chair Alarm, Diet Restrictions, Fall Risk, Lines/Tubes/Drains, Other: See Comments Ostomy Care CURRENT HOSPITAL COURSE Rt Side Abdominal Pain, Diarrhea X One Week, SOB, Septic Shock, Crohn's Colitis With Intestinal Perforation, Liver Abscess/ Intra-Abdominal Abscess, S/P Emergent Exploratory Laparotomy, Hepatic Abscess Drainage, Prior Ileocolonic Anastomosis Resection, End Ileostomy 07/06/24, SICU Course Of Stay Relevant Past Medical History: Crohn's Colitis, Ileocolic resection 2007, refer to [facility] HOME LIVING Patient Lives With: Other: See Comment, Spouse, Significant Other, Family Comments: Sig Other, and Child Age 7 in Mobile Home Assistance Available: Part-Time, Other: See Comment (Sig Other works PT) Comments: Pt stated he has good support Entry To Home: Stairs, With Rail Number Of Stairs Into Home: 4 Number Of Stairs To Bed/Bath: 0 Tub/Shower Type: Tub/Shower Laundry: Sig Other Completes Equipment Owned: Hand Held Shower PRIOR FUNCTIONAL LEVEL Within Functional Limits Per pt, he was independent with adL's, and his Sig Other completes all IADL's. 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 SUBJECTIVE pt pleasant and cooperative THERAPY DIAGNOSIS General symptoms and signs-other, Reduced mobility-other TREATMENT INTERVENTIONS Evaluation, Gait Training (04328) Timed Code Treatment (minutes): 9 Skilled Treatment Time (minutes): 24 TRAINING AND EDUCATION PROVIDED Anatomy and Impact on Deficits, Benefits of In-Hospital Mobility, Gait Pattern, Reduction of Deviations, Falls Prevention, Energy Conservation, Discharge Planning, Disease Specific Education, Home Safety, Precautions/Restricti ons, Role of Physical Therapy, Standing Balance, Transfers THERAPEUTIC SKILLS USED Activity Dosing, Cues for Sequencing/Proper Technique for Activity FUNCTIONAL STATUS Bed Mobility Rolling: Independent Sit to Supine: Independent Scooting: Independent Transfers Sit To Stand: Modified Independent Stand To Sit: Modified Independent Bed to Chair Gait Supervision Gait Device: None, IV Pole General Deviations/Observatio ns: [place] decreased (gait steady with IV pole and without) Gait Distance (feet): 400' Stairs GOALS Patient will demonstrate progress with functional mobility to allow safe discharge to home with available support and/or physical assistance. Rehab Potential: Good Progress Toward Goals: Progressing as expected PLAN PT Frequency: Discontinue Therapy Services Reasons Therapy Services Discontinued: Independent in all functional mobility, Goals met, No skilled needs Treatment Interventions: Education, Self Care / Home Management, Functional Mobility Training SIGNATURE: Ingrid Kraus, PT PATIENT NAME: Faiza Lozano DATE: July 10, 2024 TIME: 1:12 PM Normal [facility] THERAPY NT HNO ID: [id number] Author: SUSY GREEN, OTR/L Service: Occupational Therapy Author Type: Occupational Therapist Type: Therapy (PT/OT/Speech/Resp) Filed: 07/10/2024 13:06 Note Text: Occupational Therapy Evaluation Summary SERVICE DATE: 07/10/2024 SERVICE TIME: 1040 to 1105 ROOM: [place] [address] OT 6 Clicks Score: 24 Rt Side Abdominal Pain, Diarrhea X One Week, SOB, Septic Shock, Crohn's Colitis With Intestinal Perforation, Liver Abscess/ Intra-Abdominal Abscess, S/P Emergent Exploratory Laparotomy, Hepatic Abscess Drainage, Prior Ileocolonic Anastomosis Resection, End Ileostomy 07/06/24, SICU Course Of Stay DISCHARGE RECOMMENDATIONS Home Pt has adequate support and social structure for reasonably safe discharge home at current level. Pt discharged following evaluation with no further OT needs identified. Anticipated Discharge Needs: Physical Assist at Home, Equipment Physical Assist at Home for: Transportation, Shopping, Laundry, Cleaning Recommended Discharge Equipment: Grab Bars-Shower, Hand Held Shower, Tail Board Man ASSESSMENT Response to Therapy Interventions: Good Participation in Activities Pt plans to return home with sig other for support PRECAUTIONS Abdominal, Bed/Chair Alarm, Diet Restrictions, Fall Risk, Lines/Tubes/Drains, Other: See Comments Ostomy Care CURRENT HOSPITAL COURSE Rt Side Abdominal Pain, Diarrhea X One Week, SOB, Septic Shock, Crohn's Colitis With Intestinal Perforation, Liver Abscess/ Intra-Abdominal Abscess, S/P Emergent Exploratory Laparotomy, Hepatic Abscess Drainage, Prior Ileocolonic Anastomosis Resection, End Ileostomy 07/06/24, SICU Course Of Stay Relevant Past Medical History: Crohn's Colitis, Ileocolic resection 2007, refer to [facility] HOME LIVING Patient Lives With: Other: See Comment, Spouse, Significant Other, Family Comments: Sig Other, and Child Age 8 in [place] Home Assistance Available: Part-Time, Other: See Comment (Sig Other works PT) Comments: Pt stated he has good support Entry To Home: Stairs, With Rail Number Of Stairs Into Home: 4 Number Of Stairs To Bed/Bath: 0 Tub/Shower Type: Tub/Shower Laundry: Sig Other Completes Equipment Owned: Hand Held Shower PRIOR FUNCTIONAL LEVEL Within Functional Limits Per pt, he was independent with adL's, and his Sig Other completes all IADL's. 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 Baseline Cognition: Oriented to self, Oriented to place, Oriented to time, Oriented to situation SUBJECTIVE I am OK COGNITION Responsiveness: Alert, Awake Follows Commands: 3-step Commands THERAPY DIAGNOSIS Reduced mobility-other, Decreased activities of daily living (ADL), Muscle Weakness (generalized) TREATMENT INTERVENTIONS Evaluation, Self Assisted Management (96646) Timed Code Treatment (minutes): 10 Skilled Treatment Time (minutes): 25 TRAINING AND EDUCATION PROVIDED Activity Adaptation/Compensato ry Strategies, Assistive Device Use, Bed Mobility, Benefits of In-Hospital Mobility, Coping Skills/Resiliency, Discharge Planning, Disease Specific Education, Energy Conservation, Expected Functional Level, Functional Mobility Involving ADLs, Insight into Deficits, Low Vision Strategies, Precautions/Restricti ons, Positioning, Role of Occupational Therapy, Safety/Judgment, Standing Balance to Improve [place] with ADLs/Self-Care, Transfer - Bed to Chair, Transfer - Sit to Stand, Treatment Protocol Pt educated with role/benefit of OT services, discharge options, fall precautions, walker safety, recommended DME/AE, and provided printed material. Pt completed safe functional transfer from bed to chair with no device required for support. Pt educated with abdominal precautions, energy conservation techniques and pacing self as pertaining to ADL's. Pt educated regarding fall precautions in room, and requested Pt call staff for any assist. Pt verbalized understanding of all precautions. THERAPEUTIC SKILLS USED Activity Dosing, Cues for Sequencing/Proper Technique for Activity, Cuing Tactile, Cuing Verbal, Cuing Visual, Management of Critical Lines, Tubes and/or Drains, Movement Facilitation, Physical Assist, Teach-Back for Education, Therapeutic Use of Self FUNCTIONAL STATUS Activities of Daily Living Assist Level Additional Information Feeding Independent Grooming Modified Independent Bathing Upper Body Modified Independent Bathing Lower Body Stand By Assistance Dressing Upper Body Modified Independent Dressing Lower Body Stand By Assistance Toileting Stand By Assistance Mobility Assist Level Additional Information Bed Mobility Sit to Stand Supervision Stand to Sit Supervision Bed to Chair Toilet/Commode Shower Functional Mobility Supervision Functional Mobility Device: None GOALS Patient will demonstrate progress with self-care, cognitive and/or coping needs identified to (more content not included)... Normal [facility] CBC W Auto Differential pane l (Bld)on 07-09-2024 Basophils (Bld) [#/Vol] 10*3/uL Normal <0.11 [facility] Comment on above: Order Comment: Speci men Type: BLOOD SPECIMENOrdering Facility: [facility] Address: [address] [place] [address] Performed By: #### 5 7021-8 ####[facility] LABORATORYCLIA [id number] [place] [address] [place] Basophils/100 WBC (Bld) 0.1 % Normal [facility] Comment on above: Order Comment: Speci men Type: BLOOD SPECIMENOrdering Facility: [facility] Address: [address] [place] [address] Performed By: #### 5 7021-8 ####[facility] LABORATORYCLIA [id number] [address] [place] Differential cell count method Nom (Bld) Auto Normal [facility] Comment on above: Order Comment: Speci men Type: BLOOD SPECIMENOrdering Facility: [facility] Address: [address] [place] [address] Performed By: #### 5 7021-8 ####[facility] LABORATORYCLIA [id number] [place] [address] [place] Eosinophils (Bld) [#/Vol] 10*3/uL Normal <0.46 [facility] Comment on above: Order Comment: Speci men Type: BLOOD SPECIMENOrdering Facility: [facility] Address: [address] [place] [address] Performed By: #### 5 7021-8 ####[facility] LABORATORYCLIA [id number] [place] [address] [place] Eosinophils/100 WBC (Bld) 0.0 % Normal [facility] Comment on above: Order Comment: Speci men Type: BLOOD SPECIMENOrdering Facility: [facility] Address: [address] [place] [address] Performed By: #### 5 7021-8 ####[facility] LABORATORYCLIA [id number] [place] [id number] [place] Erythrocyte distribution width (RBC) [Ratio] 13.8 % Normal 11.5-15.0 [facility] Comment on above: Order Comment: Speci men Type: BLOOD SPECIMENOrdering Facility: [facility] Address: [address] [place] [address] Performed By: #### 5 7021-8 ####[facility] LABORATORYCLIA [id number] [address] [place] Hematocrit (Bld) [Volume fraction] 28.4 % Low 39.0-51.0 [facility] Comment on above: Order Comment: Speci men Type: BLOOD SPECIMENOrdering Facility: [facility] Address: [address] [place] [address] Performed By: #### 5 7021-8 ####[facility] LABORATORYCLIA [id number] [place] [address] [place] Hemoglobin (Bld) [Mass/Vol] 9.4 g/dL Low 13.0-17.0 [facility] Comment on above: Order Comment: Speci men Type: BLOOD SPECIMENOrdering Facility: [facility] Address: [address] [place] [address] Performed By: #### 5 7021-8 ####[facility] LABORATORYCLIA [id number] [place] [id number] [place] Immature granulocytes (Bld) [#/Vol] 0.09 10*3/uL Normal <0.10 [facility] Comment on above: Order Comment: Speci men Type: BLOOD SPECIMENOrdering Facility: [facility] Address: [address] [place] [address] Performed By: #### 5 7021-8 ####[facility] LABORATORYCLIA [id number] [place] [address] [place] Immature granulocytes/100 WBC (Bld) 0.7 % Normal [facility] Comment on above: Order Comment: Speci men Type: BLOOD SPECIMENOrdering Facility: [facility] Address: [address] [place] [address] Performed By: #### 5 7021-8 ####[facility] LABORATORYCLIA [id number] [place] [address] [place] Lymphocytes (Bld) [#/Vol] 0.25 10*3/uL Low 1.00-4.00 [facility] Comment on above: Order Comment: Speci men Type: BLOOD SPECIMENOrdering Facility: [facility] Address: [address] [place] [address] Performed By: #### 5 7021-8 ####[facility] LABORATORYCLIA [id number] [address] [place] Lymphocytes/100 WBC (Bld) 2.0 % Normal [facility] Comment on above: Order Comment: Speci men Type: BLOOD SPECIMENOrdering Facility: [facility] Address: [address] [place] [address] Performed By: #### 5 7021-8 ####[facility] LABORATORYCLIA [id number] [place] [address] [place] MCH (RBC) [Entitic mass] 29.0 pg Normal 26.0-34.0 [facility] Comment on above: Order Comment: Speci men Type: BLOOD SPECIMENOrdering Facility: [facility] Address: [address] [place] [address] Performed By: #### 5 7021-8 ####[facility] LABORATORYCLIA [id number] [address] [place] MCHC (RBC) [Mass/Vol] 33.1 g/dL Normal 30.5-36.0 [facility] Comment on above: Order Comment: Speci men Type: BLOOD SPECIMENOrdering Facility: [facility] Address: [address] [place] [address] Performed By: #### 5 7021-8 ####[facility] LABORATORYCLIA [id number] [place] [id number] [place] MCV (RBC) [Entitic vol] 87.7 fL Normal 80.0-100.0 [facility] Comment on above: Order Comment: Speci men Type: BLOOD SPECIMENOrdering Facility: [facility] Address: [address] [place] [address] Performed By: #### 5 7021-8 ####[facility] LABORATORYCLIA [id number] [place] [id number] [place] Monocytes (Bld) [#/Vol] 0.40 10*3/uL Normal <0.87 [facility] Comment on above: Order Comment: Speci men Type: BLOOD SPECIMENOrdering Facility: [facility] Address: [address] [place] [address] Performed By: #### 5 7021-8 ####[facility] LABORATORYCLIA [id number] [place] [address] [place] Monocytes/100 WBC (Bld) 3.3 % Normal [facility] Comment on above: Order Comment: Speci men Type: BLOOD SPECIMENOrdering Facility: [facility] Address: [address] [place] [address] Performed By: #### 5 7021-8 ####[facility] LABORATORYCLIA [id number] [place] [id number] [place] Neutrophils (Bld) [#/Vol] 11.45 10*3/uL High 1.45-7.50 [facility] Comment on above: Order Comment: Speci men Type: BLOOD SPECIMENOrdering Facility: [facility] Address: [address] [place] [address] Performed By: #### 5 7021-8 ####[facility] LABORATORYCLIA [id number] [place] [id number] [place] Neutrophils/100 WBC (Bld) 93.9 % Normal [facility] Comment on above: Order Comment: Speci men Type: BLOOD SPECIMENOrdering Facility: [facility] Address: [address] [place] [address] Performed By: #### 5 7021-8 ####[facility] LABORATORYCLIA [id number] [place] [id number] [place] Nucleated RBC (Bld) [#/Vol] 10*3/uL Normal <0.01 [facility] Comment on above: Order Comment: Speci men Type: BLOOD SPECIMENOrdering Facility: [facility] Address: [address] [place] [address] Performed By: #### 5 7021-8 ####[facility] LABORATORYCLIA [id number] [place] [address] [place] Nucleated RBC/100 WBC (Bld) [Ratio] 0.0 /100 WBC Normal [facility] Comment on above: Order Comment: Speci men Type: BLOOD SPECIMENOrdering Facility: [facility] Address: [address] [place] [address] Performed By: #### 5 7021-8 ####[facility] LABORATORYCLIA [id number] [place] [address] [place] Platelet mean volume (Bld) [Entitic vol] 9.9 fL Normal 9.0-12.7 [facility] Comment on above: Order Comment: Speci men Type: BLOOD SPECIMENOrdering Facility: [facility] Address: [address] [place] [address] Performed By: #### 5 7021-8 ####[facility] LABORATORYCLIA [id number] [place] [id number] [place] Platelets (Bld) [#/Vol] 217 10*3/uL Normal 150-400 [facility] Comment on above: Order Comment: Speci men Type: BLOOD SPECIMENOrdering Facility: [facility] Address: [address] [place] [address] Performed By: #### 5 7021-8 ####[facility] LABORATORYCLIA [id number] [place] [id number] [place] RBC (Bld) [#/Vol] 3.24 10*6/uL Low 4.20-6.00 [facility] Comment on above: Order Comment: Specruiz wing Type: BLOOD SPECIMENOrdering Facility: [facility] Address: [address] [facility] [place] [address] Performed By: #### 5 7021-8 ####[facility] LABORATORYCLIA [id number] [place] [address] [place] WBC (Bld) [#/Vol] 12.20 10*3/uL High 3.70-11.00 [facility] Comment on above: Order Comment: Speci men Type: BLOOD SPECIMENOrdering Facility: [facility] Address: [address] [place] [address] Performed By: #### 5 7021-8 ####[facility] LABORATORYCLIA [id number] [place] [id number] [facility] CONSULT PROGon 07-09-2024 CONSULT PROG HNO ID: [id number] Author: ROVERTO VELASQUEZ MD Service: Critical Care Author Type: Resident Type: Consult Progress Note Filed: 07/09/2024 10:15 Note Text: Attestation signed by Ashwini Judd MD at 07/09/2024 2:[address] [facility]AFF PHYSICIAN SUPERVISING RESIDENT I have personally reviewed relevant histories about the patient. I personally reviewed today labs and imaging studies. I have personally examined the patient. The progress note obtained and documented by the resident has been reviewed by me. I have discussed the case, and the plan of management of the patient's care with the resident, the pharmacy team and the bedside nurse during the daily round. The following comments revise or confirm relevant shankar components of the note: 44 year old male with history of crohn's diease is admitted to ICU for septic shock from perforated ileocolonic anastomosis s/p exlap, hepatic abscess drainage. Overnight no pressor requirement On room air Active issues #septic shock - resolved #strep bacteremia #ANNE MARIE - improving -continue IV fluids -continue zosyn appreciate ID input -drop stress steroids to hydrocortisone 50mg TID which will match his home prednisone taper dose. Continue to wean per colorectal surgery for Crohn's flare Ok to be transferred to [facility] Patient Active Hospital Problem List: Septic shock (HCC) Date Noted: 07/06/2024 Crohn's colitis, with intestinal obstruction ([facility]) Date Noted: 07/06/2024 Liver abscess Date Noted: 07/06/2024 ANNE MARIE (acute kidney injury) ([facility]) Date Noted: 07/06/2024 On mechanically assisted ventilation ([facility]) Date Noted: 07/07/2024 ICU Checklist Last Documented/Reviewed time: 07/09/2024 10:14 AM A= Assess, Prevent, Manage Pain Pain adequately controlled?: Yes C= Choice of Sedation and Analgesia RASS at Goal?: Yes B= Both Spontaneous Awakening and Breathing Trials Ventilator: None D= Delirium: Assess, Prevent and Manage ICU Delirium Status: CAM Negative - no action required Sleep adequate?: Yes Restraint Status: None E= Early Mobility/Excercise ICU Mobility: ICU Mobility Goal: Move to chair, Stand, Walk, PT/OT consult ordered F= Family Engagement and Empowerment ICU plan of care visit at bedside in last 24 hours: Yes, ICU Team only ICU Disposition: ICU Disposition-POC Detail: To be determined Prevention: Line Status: None Hdz Status: Present, will discontinue today Pressure Injury Status: None GI/Stress Ulcer Prophylaxis: PPI Nutrition is at Goal: NPO VTE Prophylaxis: Chemoprophylaxis: Low Molecular Wt Heparin Ashwini Judd MD July 09, 2024 2:42 PM [facility] Progress Note Service Date: July 09, 2024 Service Time: 1013 Admission Date: 07/06/2024 Hospital Day: # 3 3 Days Post-Op CARE COORDINATION NOTE Indication for ICU Admission: Shock on vasopressors, s/p emergent ex-lap and left intubated Important/Relevant PMH/PSH: Crohn's disease PING Preadmission Hospital Course: Faiza Lozano is a 44 year old male with long standing Crohn's disease s/p open ileocolic resection in 2007, with current regimen Stelara and 35mg PO Prednisone daily (ongoing Crohn's flare) who presented to the ED for evaluation of significant abdominal pain, inability to tolerate PO intake. Workup showing patient tachycardic and hypotensive with significant lactic acidosis (Lactate 16), thrombocytosis (540), and ANNE MARIE (Cr 1.68), CT A/P showed active Crohn's disease with stricture at RUQ ileocolic anastomosis with perforation at/near anastomosis with large multi-loculated abscess which communicates to large bilobed inferior R hepatic lobe liver abscess. He went urgently to OR for exploration with Dr. Ovalles. Ex-lap, hepatic abscess drainage, resection of prior ileocolonic anastomosis, end ileostomy. - HELEN left in place - Received total of 4L crystalloid pre-op, 4L crystalloid intra-op, 1L albumin, 2u pRBC Admitted to SICU post-op intubated and sedated Chronological List of Surgeries and Major Events (Diagnosis): (Surgeries in bold characters) 07/06/2024: Ex-lap, hepatic abscess drainage, resection of prior ileocolonic anastomosis, end ileostomy. S/p 2u pRBC 07/07/2024: Extubated 07/08/2024: Off Levo. Both samples of blood cultures + for strep Major Events within past 24 hours - No acute events overnight. - Pain controlled, no nausea or vomiting. - Off levo - Blood cultures + strep. Repeat cultures drawn. A/P of Major Active Problems (excluding routine care and common problems): Neuro: #Acute postoperative pain #PING - Pain control: Scheduled Tylenol, Dilaudid MEDICARE INTERVIEWER - Delirium: Continue to monitor, no concerns - Continue home Prozac, (more content not included)... Normal [facility] Comprehensive metabolic 2000 panelon 07-09-2024 Albumin [Mass/Vol] 3.0 g/dL Low 3.9-4.9 [facility] Comment on above: Order Comment: Speci men Type: BLOOD SPECIMENOrdering Facility: [facility] Address: [address] [place] [address] Performed By: #### 2 4323-8, 72715-9, 2776- ####[facility] LABORATORYCLIA [id number] [place] [address] [place] ALP [Catalytic activity/Vol] 68 U/L Normal 38-113 [facility] Comment on above: Order Comment: Speci men Type: BLOOD SPECIMENOrdering Facility: [facility] Address: [address] [place] [address] Performed By: #### 2 4323-8, , 2776- ####[facility] LABORATORYCLIA [id number] [place] [id number] [place] ALT [Catalytic activity/Vol] 33 U/L Normal 10-54 [facility] Comment on above: Order Comment: Speci men Type: BLOOD SPECIMENOrdering Facility: [facility] Address: [address] [place] [address] Performed By: #### 2 4323-8, , 2776- ####[facility] LABORATORYCLIA [id number] [place] [id number] [place] Anion gap [Moles/Vol] 8 mmol/L Normal 8-15 [facility] Comment on above: Order Comment: Speci men Type: BLOOD SPECIMENOrdering Facility: [facility] Address: [address] [place] [address] Performed By: #### 2 4323-8, 19069-8, 2776-1 ####[facility] LABORATORYCLIA [id number] [place] [address] [place] AST [Catalytic activity/Vol] 27 U/L Normal 14-40 [facility] Comment on above: Order Comment: Speci men Type: BLOOD SPECIMENOrdering Facility: [facility] Address: [address] [place] [address] Performed By: #### 2 4323-8, , 2776-08 ####[facility] LABORATORYCLIA [id number] [place] [address] [place] Bilirubin [Mass/Vol] 0.6 mg/dL Normal 0.2-1.3 [facility] Comment on above: Order Comment: Speci men Type: BLOOD SPECIMENOrdering Facility: [facility] Address: [address] [place] [address] Performed By: #### 2 4323-8, , 2776-08 ####[facility] LABORATORYCLIA [id number] [place] [id number] [place] Calcium [Mass/Vol] 8.4 mg/dL Low 8.5-10.2 [facility] Comment on above: Order Comment: Speci men Type: BLOOD SPECIMENOrdering Facility: [facility] Address: [address] [place] [address] Performed By: #### 2 4323-8, , 2776-08 ####[facility] LABORATORYCLIA [id number] [place] [id number] [place] Chloride [Moles/Vol] 109 mmol/L High 98-107 [facility] Comment on above: Order Comment: Speci men Type: BLOOD SPECIMENOrdering Facility: [facility] Address: [address] [place] [address] Performed By: #### 2 4323-8, , 2776-08 ####[facility] LABORATORYCLIA [id number] [place] [id number] [place] CO2 [Moles/Vol] 25 mmol/L Normal 22-30 [facility] Comment on above: Order Comment: Speci men Type: BLOOD SPECIMENOrdering Facility: [facility] Address: [address] [place], [place] [address] Performed By: #### 2 4323-8, , 2776-08 ####[facility] LABORATORYCLIA [id number] [place] [address] [place] Creatinine [Mass/Vol] 0.80 mg/dL Normal 0.73-1.22 [facility] Comment on above: Order Comment: Amada wing Type: BLOOD SPECIMENOrdering Facility: [facility] Address: [address] [place] [address] Performed By: #### 2 4323-8, , 2776-08 ####[facility] LABORATORYCLIA [id number] [place] [address] [place] Creatinine and Glomerular filtration rate.predicted panel (S/P/Bld) 111 mL/min/1.73m??? Normal >=60 [facility] Comment on above: Order Comment: [facility] Type: BLOOD SPECIMENOrdering Facility: [facility] Address: [address] [place] [address] Result Comment: Daria mated Glomerular Filtration Rate (eGFR) is calculated using the 2020 CKD-EPI creatinine equation. This equation utilizes serum creatinine, sex, and age as parameters. The creatinine assay has traceable calibration to isotope dilution-mass spectrometry. Refer to KDIGO guidelines for clinical interpretation. In patients with unstable renal function, e.g. those with acute kidney injury, the eGFR may not accurately reflect actual GFR. Performed By: #### 2 4323-8, , 2776-08 ####[facility] LABORATORYCLIA [id number] [place] [address] [place] Glucose [Mass/Vol] 129 mg/dL High 74-99 [facility] Comment on above: Order Comment: Amada maciej Type: BLOOD SPECIMENOrdering Facility: [facility] Address: [address] [place] [address] Result Comment: The [place] Diabetes Association (ADA) provides guidance for cutoff values for fasting glucose and random glucose. The ADA defines fasting as no caloric intake for at least 8 hours. Fasting plasma glucose results between 100 to 125 mg/dL indicate increased risk for diabetes (prediabetes). Fasting plasma glucose results greater than or equal to 126 mg/dL meet the criteria for diagnosis of diabetes. In the absence of unequivocal hyperglycemia, results should be confirmed by repeat testing. In a patient with classic symptoms of hyperglycemia or hyperglycemic crisis, random plasma glucose results greater than or equal to 200 mg/dL meet the criteria for diagnosis of diabetes. Reference: Standards of Medical Care in Diabetes 2016, [place] Diabetes Association. Diabetes Care. 2016.39(Suppl 1). Performed By: #### 2 4323-8, , 2776-08 ####[facility] LABORATORYCLIA [id number] [place] [id number] [place] Potassium [Moles/Vol] 3.7 mmol/L Normal 3.7-5.1 [facility] Comment on above: Order Comment: Amada wing Type: BLOOD SPECIMENOrdering Facility: [facility] Address: [address] [place] [address] Performed By: #### 2 4323-8, , 2776-08 ####[facility] LABORATORYCLIA [id number] [place] [id number] [place] Protein [Mass/Vol] 5.6 g/dL Low 6.3-8.0 [facility] Comment on above: Order Comment: Amada wing Type: BLOOD SPECIMENOrdering Facility: [facility] Address: [address] [place], [place] [address] Performed By: #### 2 4323-8, , 2776-08 ####[facility] LABORATORYCLIA [id number] [place] [id number] [place] Sodium [Moles/Vol] 142 mmol/L Normal 136-144 [facility] Comment on above: Order Comment: Popeyei maciej Type: BLOOD SPECIMENOrdering Facility: [facility] Address: [address] [place] [address] Performed By: #### 2 4323-8, , 2776-08 ####[facility] LABORATORYCLIA [id number] [place] [address] [place] Urea nitrogen [Mass/Vol] 20 mg/dL Normal 9-24 [facility] Comment on above: Order Comment: Speci men Type: BLOOD SPECIMENOrdering Facility: [facility] Address: [address] [place], [place] [address] Performed By: #### 2 4323-8, , 2776-08 ####[facility] LABORATORYCLIA [id number] [place] [id number] [place] [facility] Magnesium [Mass/Vol] 2.0 mg/dL Normal 1.7-2.3 [facility] Comment on above: Order Comment: Speci men Type: BLOOD SPECIMENOrdering Facility: [facility] Address: [address] [place] [address] Performed By: #### 2 4323-8, , 2776-08 ####[facility] LABORATORYCLIA [id number] [place] [id number] [place] NURSING PROGon 07-09-2024 NURSING PROG HNO ID: [id number] Author: ARUNA SUMMERS RN Service: Nursing Author Type: Registered Nurse Type: Nursing Progress Note Filed: 07/09/2024 16:34 Note Text: Transfer Note: PATIENT NAME: Faiza Lozano Patient Location: [place] [address] [address] Room: [place] [address] Patient transferred into room/unit pk315 in stable condition. Actions taken: No futher actions taken at this time. Will continue to monitor and check with patient. Normal [facility] Phosphate SerPl-mCncon 07-09 Phosphate [Mass/Vol] 3.1 mg/dL Normal 2.7-4.8 [facility] Comment on above: Order Comment: Speci men Type: BLOOD SPECIMENOrdering Facility: [facility] Address: [address] [place], [place] [address] Performed By: #### 2 4323-8, , 2776-08 ####[facility] LABORATORYCLIA [id number] [place] [id number] [place] Bacteria Bld Culton 07-08-20 24 Bacteria identified Cx Nom (Bld) CULTURE, BLOOD: No growth 5 days GRAM STAIN: This blood culture had less than the recommended 8 ml per bottle, which could decrease the sensitivity of the test. Normal [facility] Comment on above: Performed By: #### 6 00-7 ####[facility] LABCLIA [id number] [address] [place] [facility] Bacteria identified Cx Nom (Bld) CULTURE, BLOOD: No growth 5 days Normal [facility] Comment on above: Performed By: #### 6 00-7 ####[facility] LABCLIA [id number] [place] [address] [place] CBC W Auto Differential pane l (Bld)on 07-08-2024 Basophils (Bld) [#/Vol] 0.04 10*3/uL Normal <0.11 [facility] Comment on above: Order Comment: Speci men Type: BLOOD SPECIMENOrdering Facility: [facility] Address: [address] [place] [address] Performed By: #### 5 7021-8 ####[facility] LABORATORYCLIA [id number] [place] [address] [place] Basophils/100 WBC (Bld) 0.2 % Normal [facility] Comment on above: Order Comment: Speci men Type: BLOOD SPECIMENOrdering Facility: [facility] Address: [address] [place] [address] Performed By: #### 5 7021-8 ####[facility] LABORATORYCLIA [id number] [address] [place] Differential cell count method Nom (Bld) Auto Normal [facility] Comment on above: Order Comment: Speci men Type: BLOOD SPECIMENOrdering Facility: [facility] Address: [address] [place] [address] Performed By: #### 5 7021-8 ####[facility] LABORATORYCLIA [id number] [place] [address] [place] Eosinophils (Bld) [#/Vol] 10*3/uL Normal <0.46 [facility] Comment on above: Order Comment: Speci men Type: BLOOD SPECIMENOrdering Facility: [facility] Address: [address] [place] [address] Performed By: #### 5 7021-8 ####[facility] LABORATORYCLIA [id number] [place] [id number] [place] Eosinophils/100 WBC (Bld) 0.0 % Normal [facility] Comment on above: Order Comment: Speci men Type: BLOOD SPECIMENOrdering Facility: [facility] Address: [address] [place] [address] Performed By: #### 5 7021-8 ####[facility] LABORATORYCLIA [id number] [place] [address] [place] Erythrocyte distribution width (RBC) [Ratio] 13.9 % Normal 11.5-15.0 [facility] Comment on above: Order Comment: Speci men Type: BLOOD SPECIMENOrdering Facility: [facility] Address: [address] [place] [address] Performed By: #### 5 7021-8 ####[facility] LABORATORYCLIA [id number] [place] [address] [place] Hematocrit (Bld) [Volume fraction] 27.9 % Low 39.0-51.0 [facility] Comment on above: Order Comment: Speci men Type: BLOOD SPECIMENOrdering Facility: [facility] Address: [address] [place] [address] Performed By: #### 5 7021-8 ####[facility] LABORATORYCLIA [id number] [place] [address] [place] Hemoglobin (Bld) [Mass/Vol] 9.5 g/dL Low 13.0-17.0 [facility] Comment on above: Order Comment: Speci men Type: BLOOD SPECIMENOrdering Facility: [facility] Address: [address] [place] [address] Performed By: #### 5 7021-8 ####[facility] LABORATORYCLIA [id number] [place] [address] [place] Immature granulocytes (Bld) [#/Vol] 0.23 10*3/uL High <0.10 [facility] Comment on above: Order Comment: Speci men Type: BLOOD SPECIMENOrdering Facility: [facility] Address: [address] [place] [address] Performed By: #### 5 7021-8 ####[facility] LABORATORYCLIA [id number] [address] [place] Immature granulocytes/100 WBC (Bld) 1.1 % Normal [facility] Comment on above: Order Comment: Speci men Type: BLOOD SPECIMENOrdering Facility: [facility] Address: [address] [place] [address] Performed By: #### 5 7021-8 ####[facility] LABORATORYCLIA [id number] [place] [address] [place] Lymphocytes (Bld) [#/Vol] 0.27 10*3/uL Low 1.00-4.00 [facility] Comment on above: Order Comment: Speci men Type: BLOOD SPECIMENOrdering Facility: [facility] Address: [address] [place] [address] Performed By: #### 5 7021-8 ####[facility] LABORATORYCLIA [id number] [address] [place] [facility] Lymphocytes/100 WBC (Bld) 1.3 % Normal [facility] Comment on above: Order Comment: Speci men Type: BLOOD SPECIMENOrdering Facility: [facility] Address: [address] [place] [address] Performed By: #### 5 7021-8 ####[facility] LABORATORYCLIA [id number] [place] [address] [place] MCH (RBC) [Entitic mass] 29.8 pg Normal 26.0-34.0 [facility] Comment on above: Order Comment: Speci men Type: BLOOD SPECIMENOrdering Facility: [facility] Address: [address] [place] [address] Performed By: #### 5 7021-8 ####[facility] LABORATORYCLIA [id number] [address] [place] MCHC (RBC) [Mass/Vol] 34.1 g/dL Normal 30.5-36.0 [facility] Comment on above: Order Comment: Speci men Type: BLOOD SPECIMENOrdering Facility: [facility] Address: [address] [place] [address] Performed By: #### 5 7021-8 ####[facility] LABORATORYCLIA [id number] [place] [id number] [place] MCV (RBC) [Entitic vol] 87.5 fL Normal 80.0-100.0 [facility] Comment on above: Order Comment: Speci men Type: BLOOD SPECIMENOrdering Facility: [facility] Address: [address] [place] [address] Performed By: #### 5 7021-8 ####[facility] LABORATORYCLIA [id number] [address] [place] Monocytes (Bld) [#/Vol] 0.48 10*3/uL Normal <0.87 [facility] Comment on above: Order Comment: Speci men Type: BLOOD SPECIMENOrdering Facility: [facility] Address: [address] [place] [address] Performed By: #### 5 7021-8 ####[facility] LABORATORYCLIA [id number] [address] [place] Monocytes/100 WBC (Bld) 2.3 % Normal [facility] Comment on above: Order Comment: Speci men Type: BLOOD SPECIMENOrdering Facility: [facility] Address: [address] [place] [address] Performed By: #### 5 7021-8 ####[facility] LABORATORYCLIA [id number] [place] [id number] [place] Neutrophils (Bld) [#/Vol] 20.28 10*3/uL High 1.45-7.50 [facility] Comment on above: Order Comment: Speci men Type: BLOOD SPECIMENOrdering Facility: [facility] Address: [address] [place] [address] Performed By: #### 5 7021-8 ####[facility] LABORATORYCLIA [id number] [place] [address] [place] Neutrophils/100 WBC (Bld) 95.1 % Normal [facility] Comment on above: Order Comment: Speci men Type: BLOOD SPECIMENOrdering Facility: [facility] Address: [address] [place] [address] Performed By: #### 5 7021-8 ####[facility] LABORATORYCLIA [id number] [place] [id number] [place] Nucleated RBC (Bld) [#/Vol] 10*3/uL Normal <0.01 [facility] Comment on above: Order Comment: Speci men Type: BLOOD SPECIMENOrdering Facility: [facility] Address: [address] [place] [address] Performed By: #### 5 7021-8 ####[facility] LABORATORYCLIA [id number] [place] [address] [place] Nucleated RBC/100 WBC (Bld) [Ratio] 0.0 /100 WBC Normal [facility] Comment on above: Order Comment: Speci men Type: BLOOD SPECIMENOrdering Facility: [facility] Address: [address] [place] [address] Performed By: #### 5 7021-8 ####[facility] LABORATORYCLIA [id number] [place] [address] [place] Platelet mean volume (Bld) [Entitic vol] 9.6 fL Normal 9.0-12.7 [facility] Comment on above: Order Comment: Speci men Type: BLOOD SPECIMENOrdering Facility: [facility] Address: [address] [place] [address] Performed By: #### 5 7021-8 ####[facility] LABORATORYCLIA [id number] [place] [id number] [place] Platelets (Bld) [#/Vol] 241 10*3/uL Normal 150-400 [facility] Comment on above: Order Comment: Speci men Type: BLOOD SPECIMENOrdering Facility: [facility] Address: [address] [place] [address] Performed By: #### 5 7021-8 ####[facility] LABORATORYCLIA [id number] [place] [id number] [place] RBC (Bld) [#/Vol] 3.19 10*6/uL Low 4.20-6.00 [facility] Comment on above: Order Comment: Speci men Type: BLOOD SPECIMENOrdering Facility: [facility] Address: [address] [place] [address] Performed By: #### 5 7021-8 ####[facility] LABORATORYCLIA [id number] [place] [id number] [place] [facility] WBC (Bld) [#/Vol] 21.31 10*3/uL High 3.70-11.00 [facility] Comment on above: Order Comment: Speci men Type: BLOOD SPECIMENOrdering Facility: [facility] Address: [address] [place] [address] Performed By: #### 5 7021-8 ####[facility] LABORATORYCLIA [id number] [place] [id number] [facility] CONSULTon 07-08-2024 CONSULT HNO ID: [id number] Author: CHRISTIN GOLDSMITH APRN.FIRE OBSERVER Service: Wound/Ostomy Author Type: Nurse Practitioner Type: Consults Filed: 07/08/2024 12:35 Note Text: ANCILLARY OSTOMY CARE PROGRESS NOTE SERVICE DATE: 07/08/2024 SERVICE TIME: 9:20 AM Ileostomy pouch seal remains intact. Plan for initial ostomy lesson on 07/10/2024. States his girlfriend is familiar with how to change appliances as worked in a SNF. Reviewed the purpose, function and appearance of an ileostomy. SIGNATURE: Christin Goldsmith APRN.FIRE OBSERVER PATIENT NAME: Faiza Lozano DATE: July 08, 2024 TIME: 12:35 PM Normal [facility] CONSULT HNO ID: [id number] Author: Jayson ALSTON MD Service: Infectious Disease Author Type: Physician Type: Consults Filed: 07/11/2024 13:16 Note Text: [facility] - Consultation FAIZA LOZANO : 1980 AGE: 44 SEX: M CSN: [id number] [facility]: [facility] LOCATION: [facility] ATTENDING PHYSICIAN: AMANDA OVALLES DATE OF SERVICE: 07/08/2024 TIME OF SERVICE: 10:00 AM CONSULTING PHYSICIAN: Chuy Alston M.D. REQUESTING PHYSICIAN: Dr. Amanda Ovalles. HISTORY OF PRESENT ILLNESS: This is a very pleasant 44-year-old male, apparently has history of Crohn's for a number of years, had undergone ileocolic resection in 2007, apparently without subsequent medications for number of years. From Dr. Ovalles's notes, it appears he has been having some symptoms, recently admitted to the hospital with bowel obstruction and treated with steroids and apparently was advised to taper the steroids. Somewhere along the line, he has also been started on Stelara and currently on 35 mg of prednisone. He was seen by Dr. Ovalles on 07/06, and appeared very ill and she noted in 01/2024, colonoscopy had revealed ulcerated stricture at the anastomosis and the biopsy of the small bowel had shown active chronic inflammation and biopsy of the anastomosis also showed active and chronic inflammation. The patient was advised to go to the emergency room and to recommend surgical intervention including resection of the ileocolonic anastomosis with the end ileostomy plus-minus stricturoplasty. However, the patient was noted to be significantly hypotensive, tachycardic and with a lactate level of 16 in the emergency room. He had an emergent CT of the abdomen and pelvis, which revealed active Crohn disease involving distal 15 cm of neoterminal ileum with stricture at the right upper quadrant ileocolonic anastomosis, it was noted that he had perforation at or near the anastomosis with a large multiloculated abscess in the peripheral right abdomen communicating to the liver. The patient was taken to the OR last night and underwent exploratory laparotomy, drainage of the hepatic abscess, resection of the prior ileocolonic anastomosis and end ileostomy. Apparently, there was a walled-off subhepatic abscess extending to the right lobe liver parenchyma containing at least 1 L of pus. There were moderate ascites. There was small bowel edema close to the prior anastomosis. The patient has been started on fluids as a pressors and the intravenous Zosyn postoperatively. PAST MEDICAL HISTORY: Essentially as noted above. SOCIAL HISTORY: Not a smoker. FAMILY HISTORY: Nothing significant related to infectious diseases. REVIEW OF SYSTEMS: Essentially as noted above. LABORATORY DATA: Reveals admission white cell count of 31.8, goodwill ambassador of 07/07. This morning, it has come down to 21.3. Hemoglobin this morning is 9.5 with a hematocrit of 27.9. Chemistry reveals evidence of acute kidney injury, which has improved. Today, BUN is 15 and creatinine is 0.8. He has mild elevation of AST, ALT is normal, alkaline phosphatase is normal and bilirubin is normal. Lactate level has come down from a high of 16 to 1.5 yesterday morning. I reviewed the microbiology results which reveals 2 sets of blood cultures obtained on 07/06, in the evening reported as gram-positive cocci in pairs and chains and 1 set has been identified as Streptococcus anginosus group. It appears the abscess fluid cultures were not obtained. I have reviewed the imaging studies myself. PHYSICAL EXAMINATION: Vital Signs: The patient has been afebrile in the hospital. His current vital signs reveal a temperature of 36.5. General: He is not tachycardic and he still is hypotensive. He is sitting at the bedside, has an NG tube in place. He is awake, alert, and oriented. Heart: Normal. Lungs: Clear. Abdomen: Soft and has an ileostomy bag in place. He has drains in place. IMPRESSION: This is a 44-year-old male with history of Crohn disease, presents with perforated ileocolic anastomosis and significant intraabdominal abscess leading to liver abscess. At this time, we will continue intravenous Zosyn and await the results of the blood cultures. Eventually, he will need a PICC line for long-term IV antimicrobial therapy. We thank you very much for allowing us to participate in taking care of this patient. We will follow the patient as needed by you. Chuy Alston M.D. Infectious Disease KG:[id number] /[id number] [facility] CONSULT PROGon 07-08-2024 CONSULT PROG HNO ID: [id number] Author: SUSANNE SAMAYOA MD Service: Critical Care Author Type: Resident Type: Consult Progress Note Filed: 07/08/2024 11:57 Note Text: Attestation signed by Ashwini Judd MD at 07/08/2024 3:[address] FRED STONE, SR. HOSPITAL STAFF PHYSICIAN SUPERVISING RESIDENT I have personally reviewed relevant histories about the patient. I personally reviewed today labs and imaging studies. I have personally examined the patient. The progress note obtained and documented by the resident has been reviewed by me. I have discussed the case, and the plan of management of the patient's care with the resident, the pharmacy team and the bedside nurse during the daily round. The following comments revise or confirm relevant shankar components of the note: 44 year old male with history of crohn's diease is admitted to ICU for septic shock from perforated ileocolonic anastomosis s/p exlap, hepatic abscess drainage. Active issues #septic shock - improving off vasopressor #strep bacteremia #hypovolemia #ANNE MARIE - improving -IV hydration -stress steroids for 24 hours: hydrocortisone 100mg TID -ID consult Continue ICU care. Patient Active Hospital Problem List: Septic shock (HCC) Date Noted: 07/06/2024 Crohn's colitis, with intestinal obstruction (HCC) Date Noted: 07/06/2024 Liver abscess Date Noted: 07/06/2024 ANNE MARIE (acute kidney injury) (HCC) Date Noted: 07/06/2024 On mechanically assisted ventilation (HCC) Date Noted: 07/07/2024 Ashwini Judd MD July 08, 2024 3:14 PM [facility] Progress Note Service Date: July 08, 2024 Service Time: 1156 Admission Date: 07/06/2024 Hospital Day: # 2 2 Days Post-Op CARE COORDINATION NOTE Indication for ICU Admission: Shock on vasopressors, s/p emergent ex-lap and left intubated Important/Relevant PMH/PSH: Crohn's disease PING Preadmission Hospital Course: Faiza Lozano is a 44 year old male with long standing Crohn's disease s/p open ileocolic resection in 2007, with current regimen Stelara and 35mg PO Prednisone daily (ongoing Crohn's flare) who presented to the ED for evaluation of significant abdominal pain, inability to tolerate PO intake. Workup showing patient tachycardic and hypotensive with significant lactic acidosis (Lactate 16), thrombocytosis (540), and ANNE MARIE (Cr 1.68), CT A/P showed active Crohn's disease with stricture at RUQ ileocolic anastomosis with perforation at/near anastomosis with large multi-loculated abscess which communicates to large bilobed inferior R hepatic lobe liver abscess. He went urgently to OR for exploration with Dr. Ovalles. Ex-lap, hepatic abscess drainage, resection of prior ileocolonic anastomosis, end ileostomy. - HELEN left in place - Received total of 4L crystalloid pre-op, 4L crystalloid intra-op, 1L albumin, 2u pRBC Admitted to SICU post-op intubated and sedated Chronological List of Surgeries and Major Events (Diagnosis): (Surgeries in bold characters) 07/06/2024: Ex-lap, hepatic abscess drainage, resection of prior ileocolonic anastomosis, end ileostomy. S/p 2u pRBC 07/07/2024: Extubated Major Events within past 24 hours No acute events overnight. Pain controlled, no nausea or vomiting. No gas in stoma bag, minimal thin liquid output in bag. A/P of Major Active Problems (excluding routine care and common problems): Neuro: #Acute postoperative pain #IPNG No neuro deficits - Pain control: Scheduled Tylenol, Dilaudid MEDICARE INTERVIEWER - Delirium: Continue to monitor, no concerns - Continue home Prozac, Olanzapine CV: #Septic Shock On 1 of levo, HR 47-67, MAPs maintained above 65, ECHO unremarkable - Continuous cardiac monitoring - Maintain MAP >65, SBP <180 - Levo, wean as able Pulm: On room air - Aggressive BPH/IS/OOB GI: #Crohn's disease s/p open ileocolic resection in 2007, recent flare #Perforation and liver abscess s/p ex-lap with abscess drainage, ileocolonic resection and end ileostomy NG tube with 300cc output in last 24hrs, stoma output 685 in last 24hrs - Diet: NPO - Nutrition consulted for PPN - Given positive blood cx, will use mIVF w D5 for now, then transition to parenteral nutrition - Decompression: NGT to LIWS per CORS - Nausea regimen: PRN Zofran - Bowel regimen: None - Ostomy consult - Midline incision dressed - HELEN SS Renal/FEN: #ANNE MARIE #Hypovolemia 2/2 Septic Shock - resolved Cr 0.8 this morning, downtrending - IVFs: LR @50 - SCr 1.23 -> 0.8, baseline unknown - Strict IANDOs, Hdz - Daily weight - Monitor electrolytes and supplement as needed ID: #Septic Shock #Perforation #Hepatic Abscess #Crohns, immunosuppressed WBC count 21.3 from 31 - ID consulted given positive Strep on blood culture in setting of recent septic shock, appreciate their recommendations - ABX: Continue (more content not included)... Normal [facility] CONSULT PROG HNO ID: [id number] Author: Jayson ALSTON MD Service: Infectious Disease Author Type: Physician Type: Consult Progress Note Filed: 07/08/2024 10:32 Note Text: BRIEF CONSULT NOTE SERVICE DATE: 07/08/2024 SERVICE TIME: 10:23 AM Patient seen. Full consult dictated. RECOMMENDATIONS/PLAN Principal Problem: Septic shock (HCC) (POA: Yes) History of Crohn's disease Post Exploratory laparotomy, hepatic abscess drainage, prior ileocolonic anastomosis resection, end ileostomy On July 06, 2024 Will continue intravenous Zosyn SIGNATURE: Jayson Alston MD PATIENT NAME: Faiza Lozano DATE: July 08, 2024 TIME: 10:23 AM [facility] Comprehensive metabolic 2000 panelon 07-08-2024 Albumin [Mass/Vol] 3.1 g/dL Low 3.9-4.9 [facility] Comment on above: Order Comment: Speci men Type: BLOOD SPECIMENOrdering Facility: [facility] Address: [address] [place] [address] Performed By: #### 2 4323-8, 07087-7, 2776-08 ####[facility] LABORATORYCLIA [id number] [place] [address] [place] ALP [Catalytic activity/Vol] 79 U/L Normal 38-113 [facility] Comment on above: Order Comment: Speci men Type: BLOOD SPECIMENOrdering Facility: [facility] Address: [address] [place] [address] Performed By: #### 2 4323-8, 70251-2, 2776-08 ####[facility] LABORATORYCLIA [id number] [place] [id number] [place] ALT [Catalytic activity/Vol] 43 U/L Normal 10-54 [facility] Comment on above: Order Comment: Speci men Type: BLOOD SPECIMENOrdering Facility: [facility] Address: [address] [place] [address] Performed By: #### 2 4323-8, , 2776-08 ####[facility] LABORATORYCLIA [id number] [place] [id number] [place] Anion gap [Moles/Vol] 11 mmol/L Normal 8-15 [facility] Comment on above: Order Comment: Speci men Type: BLOOD SPECIMENOrdering Facility: [facility] Address: [address] [place] [address] Performed By: #### 2 4323-8, , 2776-08 ####[facility] LABORATORYCLIA [id number] [place] [id number] [place] AST [Catalytic activity/Vol] 45 U/L High 14-40 [facility] Comment on above: Order Comment: Speci men Type: BLOOD SPECIMENOrdering Facility: [facility] Address: [address] [place] [address] Performed By: #### 2 4323-8, , 2776-08 ####[facility] LABORATORYCLIA [id number] [place] [id number] [place] Bilirubin [Mass/Vol] 1.0 mg/dL Normal 0.2-1.3 [facility] Comment on above: Order Comment: Speci men Type: BLOOD SPECIMENOrdering Facility: [facility] Address: [address] [place] [address] Performed By: #### 2 4323-8, , 2776-08 ####[facility] LABORATORYCLIA [id number] [place] [address] [place] Calcium [Mass/Vol] 8.6 mg/dL Normal 8.5-10.2 [facility] Comment on above: Order Comment: Speci men Type: BLOOD SPECIMENOrdering Facility: [facility] Address: [address] [place], [place] [address] Performed By: #### 2 4323-8, , 2776-08 ####[facility] LABORATORYCLIA [id number] [place] [id number] [place] Chloride [Moles/Vol] 108 mmol/L High 98-107 [facility] Comment on above: Order Comment: Speci men Type: BLOOD SPECIMENOrdering Facility: [facility] Address: [address] [place] [address] Performed By: #### 2 4323-8, , 2776-08 ####[facility] LABORATORYCLIA [id number] [place] [id number] [place] CO2 [Moles/Vol] 23 mmol/L Normal 22-30 [facility] Comment on above: Order Comment: Speci men Type: BLOOD SPECIMENOrdering Facility: [facility] Address: [address] [place], [place] [address] Performed By: #### 2 4323-8, , 2776-08 ####[facility] LABORATORYCLIA [id number] [place] [address] [place] Creatinine [Mass/Vol] 0.84 mg/dL Normal 0.73-1.22 [facility] Comment on above: Order Comment: Speci men Type: BLOOD SPECIMENOrdering Facility: [facility] Address: [address] [place], [place] [address] Performed By: #### 2 4323-8, , 2776-08 ####[facility] LABORATORYCLIA [id number] [place] [id number] [place] Creatinine and Glomerular filtration rate.predicted panel (S/P/Bld) 110 mL/min/1.73m??? Normal >=60 [facility] Comment on above: Order Comment: Amada maciej Type: BLOOD SPECIMENOrdering Facility: [facility] Address: [address] [place] [address] Result Comment: Daria mated Glomerular Filtration Rate (eGFR) is calculated using the 2020 CKD-EPI creatinine equation. This equation utilizes serum creatinine, sex, and age as parameters. The creatinine assay has traceable calibration to isotope dilution-mass spectrometry. Refer to KDIGO guidelines for clinical interpretation. In patients with unstable renal function, e.g. those with acute kidney injury, the eGFR may not accurately reflect actual GFR. Performed By: #### 2 4323-8, 07441-3, 2777- ####[facility] LABORATORYCLIA [id number] [place] [id number] [place] Glucose [Mass/Vol] 104 mg/dL High 74-99 [facility] Comment on above: Order Comment: Amada wing Type: BLOOD SPECIMENOrdering Facility: [facility] Address: [address] [place] [address] Result Comment: The [place] Diabetes Association (ADA) provides guidance for cutoff values for fasting glucose and random glucose. The ADA defines fasting as no caloric intake for at least 8 hours. Fasting plasma glucose results between 100 to 125 mg/dL indicate increased risk for diabetes (prediabetes). Fasting plasma glucose results greater than or equal to 126 mg/dL meet the criteria for diagnosis of diabetes. In the absence of unequivocal hyperglycemia, results should be confirmed by repeat testing. In a patient with classic symptoms of hyperglycemia or hyperglycemic crisis, random plasma glucose results greater than or equal to 200 mg/dL meet the criteria for diagnosis of diabetes. Reference: Standards of Medical Care in Diabetes 2016, [place] Diabetes Association. Diabetes Care. 2016.39(Suppl 1). Performed By: #### 2 4323-8, 64612-5, 2777- ####[facility] LABORATORYCLIA [id number] [place] [id number] [place] Potassium [Moles/Vol] 4.3 mmol/L Normal 3.7-5.1 [facility] Comment on above: Order Comment: Speci men Type: BLOOD SPECIMENOrdering Facility: [facility] Address: [address] [place] [address] Performed By: #### 2 4323-8, , 2776-08 ####[facility] LABORATORYCLIA [id number] [place] [id number] [place] Protein [Mass/Vol] 5.7 g/dL Low 6.3-8.0 [facility] Comment on above: Order Comment: Speci men Type: BLOOD SPECIMENOrdering Facility: [facility] Address: [address] [place] [address] Performed By: #### 2 4323-8, , 2776-08 ####[facility] LABORATORYCLIA [id number] [place] [id number] [place] Sodium [Moles/Vol] 142 mmol/L Normal 136-144 [facility] Comment on above: Order Comment: Speci men Type: BLOOD SPECIMENOrdering Facility: [facility] Address: [address] [place] [address] Performed By: #### 2 4323-8, , 2776-08 ####[facility] LABORATORYCLIA [id number] [place] [id number] [place] Urea nitrogen [Mass/Vol] 15 mg/dL Normal 9-24 [facility] Comment on above: Order Comment: Speci men Type: BLOOD SPECIMENOrdering Facility: [facility] Address: [address] [place] [address] Performed By: #### 2 4323-8, , 2776-08 ####[facility] LABORATORYCLIA [id number] [place] [id number] [place] GRAM POSITIVE ORGANISM ID BY MICROARRAY (PhonetimeIGENE)on 07-08-2024 GRAM POSITIVE ORGANISM ID BY MICROARRAY (PhonetimeIGENE) [employer] INTERPRETATION: Streptococcus anginosus group detected by microarray. Negative for Staphylococcus spp. and Enterococcus spp. by microarray. Abnormal [facility] Interpretation and review of laboratory results Abnormal [facility] Original Ordering Provider: [employer] [facility] Magnesium Aldair-Zaki 07-08 Magnesium [Mass/Vol] 2.0 mg/dL Normal 1.7-2.3 [facility] Comment on above: Order Comment: Speci men Type: BLOOD SPECIMENOrdering Facility: [facility] Address: [address] [place] [address] Performed By: #### 2 4323-8, 52460-4, 2777-1 ####[facility] LABORATORYCLIA [id number] [address] NUTRITIONon 07-08-2024 NUTRITION HNO ID: [id number] Author: ADAM MINER RD Service: Nutrition Therapy Author Type: Registered Dietitian Type: Nutrition Filed: 07/08/2024 14:16 Note Text: NUTRITION THERAPY INITIAL ASSESSMENT SERVICE DATE: 07/08/2024 SERVICE TIME: 1350 Nutrition Assessment: Recommended Malnutrition Diagnosis: Moderate Protein-Calorie Malnutrition In the context of: Acute Illness or Injury Based on: Subcutaneous Fat Loss, Muscle Loss, Unintentional Weight Loss Nutrition Diagnosis: Problem: Suboptimal oral intake Related to: Acute illness As evidenced by: Patient/family self-report, Food/nutrition related history, Imaging studies, Medical condition, Procedure/surgery, Depletion of fat/muscle stores, Intake records, Laboratory markers, Weight loss Care Plan: Follow for diet advancement to goal (NPO) Medications: (Recommend D5% LR per NST) Consulted for PN. Discussed with NST provider, C[facility], and SICU. Will hold off on starting PN given positive blood cultures. SICU to manage IVF. Monitor and Evaluation: Meet greater than 75% of estimated needs, Monitor bowel function, Monitor fluid/electrolyte balance, Monitor labs, I/Os, vital signs, weight HPI: Faiza Lozano is a 44 year old male with a PMH of Crohn's disease who presents with abdominal pain and is admitted with septic shock, Crohn's colitis with intestinal obstruction and liver abscess. S/p ex lap with hepatic abscess drainage, prior ileocolonic anastomosis resection and end ileostomy on 07/06/24. Intake History: Nutrition Intake Prior to Admission: 0-25% estimated energy needs (Pt reports minimal intake of 1 Ensure and Gatorade over 3 days. Notes was eating normally prior to that with typical intake of two meals a day and occasional oral nutrition supplement.) (3 days) Current Nutrition Intake: NPO Current Intake Over time: (1 day) Dosing Weight: 68.9 kg (152 lb) Dosing Weight Type: Admit weight Estimated kilocalorie needs: 3801-4090 Calorie Calculation Method: 25-30 kcals/kg Estimated protein needs (grams): 90-117 Grams protein determined by: 1.3 - 1.7 g/kg Diet Orders (From admission, onward) Start Ordered 07/07/242129 DIET NPO START NOW Question: NPO Restrictions Answer: EXCEPT MEDS 07/07/242116 Anthropometrics: Height: 175.3 cm (5' 9 ) Weight: 75.1 kg (165 lb 9.1 oz) Usual Weight: 75.8 kg (167 lb) 06/19/24 Usual Weight Obtained From: Care Everywhere Body mass index is 24.45 kg/m?. Weight change percentage over time: 9.0% (15 lb) wt loss over ~1 month Weight Change: Clinically significant weight loss Physical Exam: Subcutaneous fat loss: Subcutaneous Fat Loss Assessed Orbital: Slightly dark circles, somewhat hollow look (Mod) Upper Arm (Triceps): Some depth to pinch, not ample fat (Mild) Thoracic and Lumbar: Ribs somewhat apparent, depressions not very pronounced (Mild) (Pt notes normal body habitus) Muscle loss: Muscle Loss Assessed Temporalis: Slight depression (Mild) Clavicle: More prominent bone, less prominent muscle (Mod) (Pt notes normal body habitus) Acromion: Acromion process slightly protrudes (Mod) (Pt notes normal body habitus) Interosseous (Hand): Muscle bulges, flat/mild bulge between dorsal bones (No Loss) Quadricep: Well rounded muscle, kneecap not prominent (No loss) Gastrocnemius: Well developed bulb of muscle (No loss) Potential micronutrient deficiency: Teeth Edema/Ascites: No edema, No ascites GI Symptoms: None Ostomy Amount: WNL (685 mL 07/07) Functional Status: Unable to assess Potential Signs of Inflammation: Chronic condition (Crohn's disease), Acute post-operative, Hypoalbuminemia, Hyperglycemia, Leukocytosis, Microbiologic cultures, Imaging studies, Shock, Sepsis MNT Billing: $ Initial Assessment: 1-15 minutes SIGNATURE: Adam Cerna RD PATIENT NAME: Faiza Lozano DATE: July 08, 2024 TIME: 2:11 PM Normal [facility] Phosphate SerPl-mCncon 07-08 Phosphate [Mass/Vol] 3.6 mg/dL Normal 2.7-4.8 [facility] Comment on above: Order Comment: Speci men Type: BLOOD SPECIMENOrdering Facility: [facility] Address: [address] [place] [address] Performed By: #### 2 4323-8, 95629-7, 2777-1 ####[facility] LABORATORYCLIA [id number] [place] [id number] [place] ARTERIAL BLOOD GASESon 07-07 Base deficit (BldA) [Moles/Vol] -1 mmol/L Normal -2-0 [facility] Comment on above: Order Comment: Speci men Type: ARTERIAL BLOOD SPECIMENOrdering Facility: [facility] Address: [address] [place] [address] Performed By: #### A LLBG ####[facility] LABORATORYCLIA [id number] [place] [id number] [place] Body temperature 98.6 [degF] Normal [facility] Comment on above: Order Comment: Speci men Type: ARTERIAL BLOOD SPECIMENOrdering Facility: [facility] Address: [address] [place] [address] Performed By: #### A LLBG ####[facility] LABORATORYCLIA [id number] [place] [id number] [place] Calcium.ionized (Bld) [Mass/Vol] 1.15 mmol/L Normal 1.08-1.30 [facility] Comment on above: Order Comment: Speci men Type: ARTERIAL BLOOD SPECIMENOrdering Facility: [facility] Address: [address] [place] [address] Performed By: #### A LLBG ####[facility] LABORATORYCLIA [id number] [place] [id number] [place] Calcium.ionized adjusted to pH 7.4 (BldA) [Moles/Vol] 1.17 mmol/L Normal 1.08-1.30 [facility] Comment on above: Order Comment: Speci men Type: ARTERIAL BLOOD SPECIMENOrdering Facility: [facility] Address: [address] [place] [address] Performed By: #### A LLBG ####[facility] LABORATORYCLIA [id number] [address] [place] Carboxyhemoglobin (BldA) [Mass fraction] 0.1 % Normal 0.0-2.0 [facility] Comment on above: Order Comment: Speci men Type: ARTERIAL BLOOD SPECIMENOrdering Facility: [facility] Address: [address] [place] [address] Result Comment: Carb oxyhemoglobin Reference Range for Smokers: 2.0-8.0% Performed By: #### A LLBG ####[facility] LABORATORYCLIA [id number] [address] [place] Chloride [Moles/Vol] 107 mmol/L High 97-105 [facility] Comment on above: Order Comment: Speci men Type: ARTERIAL BLOOD SPECIMENOrdering Facility: [facility] Address: [address] [place] [address] Performed By: #### A LLBG ####[facility] LABORATORYCLIA [id number] [address] [place] CO2 (Bld) [Partial pressure] 33 mm Hg Low 36-46 [facility] Comment on above: Order Comment: Speci men Type: ARTERIAL BLOOD SPECIMENOrdering Facility: [facility] Address: [address] [place] [address] Performed By: #### A LLBG ####[facility] LABORATORYCLIA [id number] [place] [id number] [place] FIO2 30 % Normal [facility] Comment on above: Order Comment: Speci men Type: ARTERIAL BLOOD SPECIMENOrdering Facility: [facility] Address: [address] [place] [address] Performed By: #### A LLBG ####[facility] LABORATORYCLIA [id number] [place] [address] [place] Glucose [Mass/Vol] 152 mg/dL High 60-105 [facility] Comment on above: Order Comment: Speci men Type: ARTERIAL BLOOD SPECIMENOrdering Facility: [facility] Address: [address] [place] [address] Performed By: #### A LLBG ####[facility] LABORATORYCLIA [id number] [place] [address] [place] HCO3 (Bld) [Moles/Vol] 22 mmol/L Normal 22-26 [facility] Comment on above: Order Comment: Speci men Type: ARTERIAL BLOOD SPECIMENOrdering Facility: [facility] Address: [address] [place] [address] Performed By: #### A LLBG ####[facility] LABORATORYCLIA [id number] [address] [place] Hematocrit (Bld) [Volume fraction] 33.1 % Low 39.0-51.0 [facility] Comment on above: Order Comment: Speci men Type: ARTERIAL BLOOD SPECIMENOrdering Facility: [facility] Address: [address] [place] [address] Performed By: #### A LLBG ####[facility] LABORATORYCLIA [id number] [place] [address] [place] Hemoglobin (Bld) [Mass/Vol] 10.7 g/dL Low 13.0-17.0 [facility] Comment on above: Order Comment: Speci men Type: ARTERIAL BLOOD SPECIMENOrdering Facility: [facility] Address: [address] [place] [address] Performed By: #### A LLBG ####[facility] LABORATORYCLIA [id number] [address] [place] INSPIRATORY PRESSURE SET (CMH2O) 12 cmH2O Normal [facility] Comment on above: Order Comment: Speci men Type: ARTERIAL BLOOD SPECIMENOrdering Facility: [facility] Address: [address] [place] [address] Performed By: #### A LLBG ####[facility] LABORATORYCLIA [id number] [place] [address] [place] INVASIVE VENTILATOR MODE Pressure A/C (PC-CMVs) Normal [facility] Comment on above: Order Comment: Speci men Type: ARTERIAL BLOOD SPECIMENOrdering Facility: [facility] Address: [address] [place] [address] Performed By: #### A LLBG ####[facility] LABORATORYCLIA [id number] [place] [address] [place] Lactate [Moles/Vol] 1.5 mmol/L Normal 0.5-2.2 [facility] Comment on above: Order Comment: Speci men Type: ARTERIAL BLOOD SPECIMENOrdering Facility: [facility] Address: [address] [place] [address] Performed By: #### A LLBG ####[facility] LABORATORYCLIA [id number] [address] [place] Methemoglobin (Bld) [Mass fraction] 0.6 % Normal 0.0-1.5 [facility] Comment on above: Order Comment: Speci men Type: ARTERIAL BLOOD SPECIMENOrdering Facility: [facility] Address: [address] [place] [address] Performed By: #### A LLBG ####[facility]ORATORYCLIA [id number] [address] [place] MINUTE VENTILATION 10 L/min Normal [facility] Comment on above: Order Comment: Speci men Type: ARTERIAL BLOOD SPECIMENOrdering Facility: [facility] Address: [address] [place] [address] Performed By: #### A LLBG ####[facility] LABORATORYCLIA [id number] [place] [address] [place] O2 THERAPY VENT=Ventilator Normal [facility] Comment on above: Order Comment: Speci men Type: ARTERIAL BLOOD SPECIMENOrdering Facility: [facility] Address: [address] [place] [address] Performed By: #### A LLBG ####[facility]ORATORYCLIA [id number] [place] [address] [place] Oxygen (Bld) [Partial pressure] 140 mm Hg High 85-95 [facility] Comment on above: Order Comment: Speci men Type: ARTERIAL BLOOD SPECIMENOrdering Facility: [facility] Address: [address] [place] [address] Performed By: #### A LLBG ####[facility] LABORATORYCLIA [id number] [address] [place] Oxyhemoglobin (BldA) [Mass fraction] 97 % Normal 95-98 [facility] Comment on above: Order Comment: Speci men Type: ARTERIAL BLOOD SPECIMENOrdering Facility: [facility] Address: [address] [place] [address] Performed By: #### A LLBG ####[facility] LABORATORYCLIA [id number] [address] [place] pH (Bld) 7.44 [pH] Normal 7.35-7.45 [facility] Comment on above: Order Comment: Speci men Type: ARTERIAL BLOOD SPECIMENOrdering Facility: [facility] Address: [address] [place] [address] Performed By: #### A LLBG ####[facility] LABORATORYCLIA [id number] [address] [place] PO2 / FIO2 RATIO 467 mmHg Normal >300 [facility] Comment on above: Order Comment: Speci men Type: ARTERIAL BLOOD SPECIMENOrdering Facility: [facility] Address: [address] [place] [address] Performed By: #### A LLBG ####[facility] LABORATORYCLIA [id number] [place] [address] [place] Potassium [Moles/Vol] 4.5 mmol/L Normal 3.5-5.0 [facility] Comment on above: Order Comment: Speci men Type: ARTERIAL BLOOD SPECIMENOrdering Facility: [facility] Address: [address] [place] [address] Performed By: #### A LLBG ####[facility] LABORATORYCLIA [id number] [place] [address] [place] SET VENTILATOR RESPIRATORY RATE (BPM) 20 BPM Normal [facility] Comment on above: Order Comment: Speci men Type: ARTERIAL BLOOD SPECIMENOrdering Facility: [facility] Address: [address] [place] [address] Performed By: #### A LLBG ####[facility] LABORATORYCLIA [id number] [place] [address] [place] Sodium [Moles/Vol] 136 mmol/L Normal 136-144 [facility] Comment on above: Order Comment: Speci men Type: ARTERIAL BLOOD SPECIMENOrdering Facility: [facility] Address: [address] [place] [address] Performed By: #### A LLBG ####[facility]ORATORYCLIA [id number] [address] [place] Base deficit (BldA) [Moles/Vol] -6 mmol/L Low -2-0 [facility] Comment on above: Order Comment: Speci men Type: ARTERIAL BLOOD SPECIMENOrdering Facility: [facility] Address: [address] [place] [address] Performed By: #### A LLBG ####[facility] LABORATORYCLIA [id number] [place] [address] [place] Body temperature 98.6 [degF] Normal [facility] Comment on above: Order Comment: Speci men Type: ARTERIAL BLOOD SPECIMENOrdering Facility: [facility] Address: [address] [place] [address] Performed By: #### A LLBG ####[facility] LABORATORYCLIA [id number] [place] [address] [place] Calcium.ionized (Bld) [Mass/Vol] 1.17 mmol/L Normal 1.08-1.30 [facility] Comment on above: Order Comment: Speci men Type: ARTERIAL BLOOD SPECIMENOrdering Facility: [facility] Address: [address] [place] [address] Performed By: #### A LLBG ####[facility] LABORATORYCLIA [id number] [place] [address] [place] Calcium.ionized adjusted to pH 7.4 (BldA) [Moles/Vol] 1.10 mmol/L Normal 1.08-1.30 [facility] Comment on above: Order Comment: Speci men Type: ARTERIAL BLOOD SPECIMENOrdering Facility: [facility] Address: [address] [place] [address] Performed By: #### A LLBG ####[facility]ORATORYCLIA [id number] [address] [place] Carboxyhemoglobin (BldA) [Mass fraction] 1.0 % Normal 0.0-2.0 [facility] Comment on above: Order Comment: Speci men Type: ARTERIAL BLOOD SPECIMENOrdering Facility: [facility] Address: [address] [place] [address] Result Comment: Carb oxyhemoglobin Reference Range for Smokers: 2.0-8.0% Performed By: #### A LLBG ####[facility] LABORATORYCLIA [id number] [place] [address] [place] Chloride [Moles/Vol] 104 mmol/L Normal 97-105 [facility] Comment on above: Order Comment: Speci men Type: ARTERIAL BLOOD SPECIMENOrdering Facility: [facility] Address: [address] [place] [address] Performed By: #### A LLBG ####[facility] LABORATORYCLIA [id number] [address] [place] CO2 (Bld) [Partial pressure] 43 mm Hg Normal 36-46 [facility] Comment on above: Order Comment: Speci men Type: ARTERIAL BLOOD SPECIMENOrdering Facility: [facility] Address: [address] [place] [address] Performed By: #### A LLBG ####[facility] LABORATORYCLIA [id number] [address] [place] FIO2 30 % Normal [facility] Comment on above: Order Comment: Speci men Type: ARTERIAL BLOOD SPECIMENOrdering Facility: [facility] Address: [address] [place] [address] Performed By: #### A LLBG ####[facility]ORATORYCLIA [id number] [place] [address] [place] Glucose [Mass/Vol] 160 mg/dL High 60-105 [facility] Comment on above: Order Comment: Speci men Type: ARTERIAL BLOOD SPECIMENOrdering Facility: [facility] Address: [address] [place] [address] Performed By: #### A LLBG ####[facility]ORATORYCLIA [id number] [place] [address] [place] HCO3 (Bld) [Moles/Vol] 20 mmol/L Low 22-26 [facility] Comment on above: Order Comment: Speci men Type: ARTERIAL BLOOD SPECIMENOrdering Facility: [facility] Address: [address] [place] [address] Performed By: #### A LLBG ####[facility]ORATORYCLIA [id number] [address] [place] Hematocrit (Bld) [Volume fraction] 34.6 % Low 39.0-51.0 [facility] Comment on above: Order Comment: Speci men Type: ARTERIAL BLOOD SPECIMENOrdering Facility: [facility] Address: [address] [place] [address] Performed By: #### A LLBG ####[facility]ORATORYCLIA [id number] [address] [place] Hemoglobin (Bld) [Mass/Vol] 11.2 g/dL Low 13.0-17.0 [facility] Comment on above: Order Comment: Speci men Type: ARTERIAL BLOOD SPECIMENOrdering Facility: [facility] Address: [address] [place] [address] Performed By: #### A LLBG ####[facility]ORATORYCLIA [id number] [address] [place] INSPIRATORY PRESSURE SET (CMH2O) 12 cmH2O Normal [facility] Comment on above: Order Comment: Speci men Type: ARTERIAL BLOOD SPECIMENOrdering Facility: [facility] Address: [address] [place] [address] Performed By: #### A LLBG ####[facility]ORATORYCLIA [id number] [place] [address] [place] INVASIVE VENTILATOR MODE Pressure A/C (PC-CMVs) Normal [facility] Comment on above: Order Comment: Speci men Type: ARTERIAL BLOOD SPECIMENOrdering Facility: [facility] Address: [address] [place] [address] Performed By: #### A LLBG ####[facility] LABORATORYCLIA [id number] [place] [address] [place] Lactate [Moles/Vol] 2.8 mmol/L High 0.5-2.2 [facility] Comment on above: Order Comment: Speci men Type: ARTERIAL BLOOD SPECIMENOrdering Facility: [facility] Address: [address] [place] [address] Performed By: #### A LLBG ####[facility] LABORATORYCLIA [id number] [place] [address] [place] Methemoglobin (Bld) [Mass fraction] 1.2 % Normal 0.0-1.5 [facility] Comment on above: Order Comment: Speci men Type: ARTERIAL BLOOD SPECIMENOrdering Facility: [facility] Address: [address] [place] [address] Performed By: #### A LLBG ####[facility] LABORATORYCLIA [id number] [place] [address] [place] MINUTE VENTILATION 8 L/min Normal [facility] Comment on above: Order Comment: Speci men Type: ARTERIAL BLOOD SPECIMENOrdering Facility: [facility] Address: [address] [place] [address] Performed By: #### A LLBG ####[facility] LABORATORYCLIA [id number] [place] [address] [place] O2 THERAPY VENT=Ventilator Normal [facility] Comment on above: Order Comment: Speci men Type: ARTERIAL BLOOD SPECIMENOrdering Facility: [facility] Address: [address] [place] [address] Performed By: #### A LLBG ####[facility] LABORATORYCLIA [id number] [place] [address] [place] Oxygen (Bld) [Partial pressure] 99 mm Hg High 85-95 [facility] Comment on above: Order Comment: Speci men Type: ARTERIAL BLOOD SPECIMENOrdering Facility: [facility] Address: [address] [place] [address] Performed By: #### A LLBG ####[facility] LABORATORYCLIA [id number] [place] [id number] [place] Oxyhemoglobin (BldA) [Mass fraction] 94 % Low 95-98 [facility] Comment on above: Order Comment: Speci men Type: ARTERIAL BLOOD SPECIMENOrdering Facility: [facility] Address: [address] [place] [address] Performed By: #### A LLBG ####[facility] LABORATORYCLIA [id number] [place] [address] [place] PEEP/CPAP 5 cmH2O Normal [facility] Comment on above: Order Comment: Speci men Type: ARTERIAL BLOOD SPECIMENOrdering Facility: [facility] Address: [address] [place] [address] Performed By: #### A LLBG ####[facility] LABORATORYCLIA [id number] [place] [address] [place] pH (Bld) 7.29 [pH] Low 7.35-7.45 [facility] Comment on above: Order Comment: Speci men Type: ARTERIAL BLOOD SPECIMENOrdering Facility: [facility] Address: [address] [place] [address] Performed By: #### A LLBG ####[facility] LABORATORYCLIA [id number] [place] [address] [place] PO2 / FIO2 RATIO 330 mmHg Normal >300 [facility] Comment on above: Order Comment: Speci men Type: ARTERIAL BLOOD SPECIMENOrdering Facility: [facility] Address: [address] [place] [address] Performed By: #### A LLBG ####[facility] LABORATORYCLIA [id number] [place] [address] [place] Potassium [Moles/Vol] 4.1 mmol/L Normal 3.5-5.0 [facility] Comment on above: Order Comment: Speci men Type: ARTERIAL BLOOD SPECIMENOrdering Facility: [facility] Address: [address] [place] [address] Performed By: #### A LLBG ####[facility] LABORATORYCLIA [id number] [place] [address] [place] SET VENTILATOR RESPIRATORY RATE (BPM) 16 BPM Normal [facility] Comment on above: Order Comment: Speci men Type: ARTERIAL BLOOD SPECIMENOrdering Facility: [facility] Address: [address] [place] [address] Performed By: #### A LLBG ####[facility]ORATORYCLIA [id number] [place] [address] [place] Sodium [Moles/Vol] 134 mmol/L Low 136-144 [facility] Comment on above: Order Comment: Speci men Type: ARTERIAL BLOOD SPECIMENOrdering Facility: [facility] Address: [address] [place] [address] Performed By: #### A LLBG ####[facility] LABORATORYCLIA [id number] [place] [address] [place] CBC W Auto Differential pane l (Bld)on 07-07-2024 Basophils (Bld) [#/Vol] 0.00 10*3/uL Normal <0.11 [facility] Comment on above: Order Comment: Speci men Type: BLOOD SPECIMENOrdering Facility: [facility] Address: [address] [place] [address] Performed By: #### 5 7021-8 ####[facility] LABORATORYCLIA [id number] [address] [place] Basophils/100 WBC (Bld) 0.0 % Normal [facility] Comment on above: Order Comment: Speci men Type: BLOOD SPECIMENOrdering Facility: [facility] Address: [address] [place] [address] Performed By: #### 5 7021-8 ####[facility]ORATORYCLIA [id number] [address] [place] Differential cell count method Nom (Bld) Manual Normal [facility] Comment on above: Order Comment: Speci men Type: BLOOD SPECIMENOrdering Facility: [facility] Address: [address] [place] [address] Performed By: #### 5 7021-8 ####[facility] LABORATORYCLIA [id number] [place] [address] [place] Eosinophils (Bld) [#/Vol] 0.00 10*3/uL Normal <0.46 [facility] Comment on above: Order Comment: Speci men Type: BLOOD SPECIMENOrdering Facility: [facility] Address: [address] [place] [address] Performed By: #### 5 7021-8 ####[facility] LABORATORYCLIA [id number] [address] Eosinophils/100 WBC (Bld) 0.0 % Normal [facility] Comment on above: Order Comment: Speci men Type: BLOOD SPECIMENOrdering Facility: [facility] Address: [address] [place] [address] Performed By: #### 5 7021-8 ####[facility] LABORATORYCLIA [id number] [address] Erythrocyte distribution width (RBC) [Ratio] 13.6 % Normal 11.5-15.0 [facility] Comment on above: Order Comment: Speci men Type: BLOOD SPECIMENOrdering Facility: [facility] Address: [address] [place] [address] Performed By: #### 5 7021-8 ####[facility] LABORATORYCLIA [id number] [address] [place] Hematocrit (Bld) [Volume fraction] 31.3 % Low 39.0-51.0 [facility] Comment on above: Order Comment: Speci men Type: BLOOD SPECIMENOrdering Facility: [facility] Address: [address] [place] [address] Performed By: #### 5 7021-8 ####[facility] LABORATORYCLIA [id number] [place] [address] [place] Hemoglobin (Bld) [Mass/Vol] 11.0 g/dL Low 13.0-17.0 [facility] Comment on above: Order Comment: Speci men Type: BLOOD SPECIMENOrdering Facility: [facility] Address: [address] [place] [address] Performed By: #### 5 7021-8 ####[facility] LABORATORYCLIA [id number] [place] [id number] [place] Lymphocytes (Bld) [#/Vol] 0.00 10*3/uL Low 1.00-4.00 [facility] Comment on above: Order Comment: Speci men Type: BLOOD SPECIMENOrdering Facility: [facility] Address: [address] [place] [address] Performed By: #### 5 7021-8 ####[facility] LABORATORYCLIA [id number] [address] [place] Lymphocytes/100 WBC (Bld) 0.0 % Normal [facility] Comment on above: Order Comment: Speci men Type: BLOOD SPECIMENOrdering Facility: [facility] Address: [address] [place] [address] Performed By: #### 5 7021-8 ####[facility] LABORATORYCLIA [id number] [place] [address] [place] MCH (RBC) [Entitic mass] 29.8 pg Normal 26.0-34.0 [facility] Comment on above: Order Comment: Speci men Type: BLOOD SPECIMENOrdering Facility: [facility] Address: [address] [place] [address] Performed By: #### 5 7021-8 ####[facility] LABORATORYCLIA [id number] [place] [id number] [place] MCHC (RBC) [Mass/Vol] 35.1 g/dL Normal 30.5-36.0 [facility] Comment on above: Order Comment: Speci men Type: BLOOD SPECIMENOrdering Facility: [facility] Address: [address] [place] [address] Performed By: #### 5 7021-8 ####RADHA LABORATORYCLIA [id number] [place] [id number] [place] MCV (RBC) [Entitic vol] 84.8 fL Normal 80.0-100.0 [facility] Comment on above: Order Comment: Speci men Type: BLOOD SPECIMENOrdering Facility: [facility] Address: [address] [place] [address] Performed By: #### 5 7021-8 ####RADHA LABORATORYCLIA [id number] [place] [id number] [place] Monocytes (Bld) [#/Vol] 0.32 10*3/uL Normal <0.87 [facility] Comment on above: Order Comment: Speci men Type: BLOOD SPECIMENOrdering Facility: [facility] Address: [address] [place] [address] Performed By: #### 5 7021-8 ####[facility] LABORATORYCLIA [id number] [place] [id number] [place] Monocytes/100 WBC (Bld) 1.0 % Normal [facility] Comment on above: Order Comment: Speci men Type: BLOOD SPECIMENOrdering Facility: [facility] Address: [address] [place] [address] Performed By: #### 5 7021-8 ####RADHA LABORATORYCLIA [id number] [place] [id number] [place] Neutrophils (Bld) [#/Vol] 31.51 10*3/uL High 1.45-7.50 [facility] Comment on above: Order Comment: Speci men Type: BLOOD SPECIMENOrdering Facility: [facility] Address: [address] [place] [address] Performed By: #### 5 7021-8 ####[facility] LABORATORYCLIA [id number] [place] [id number] [place] Neutrophils/100 WBC (Bld) 99.0 % Normal [facility] Comment on above: Order Comment: Speci men Type: BLOOD SPECIMENOrdering Facility: [facility] Address: [address] [place] [address] Performed By: #### 5 7021-8 ####RADHA LABORATORYCLIA [id number] [place] [id number] [place] Nucleated RBC (Bld) [#/Vol] 10*3/uL Normal <0.01 [facility] Comment on above: Order Comment: Speci men Type: BLOOD SPECIMENOrdering Facility: [facility] Address: [address] [place] [address] Performed By: #### 5 7021-8 ####RADHA LABORATORYCLIA [id number] [place] [id number] [place] Nucleated RBC/100 WBC (Bld) [Ratio] 0.0 /100 WBC Normal [facility] Comment on above: Order Comment: Speci men Type: BLOOD SPECIMENOrdering Facility: [facility] Address: [address] [place] [address] Performed By: #### 5 7021-8 ####RAD[facility] LABORATORYCLIA [id number] [place] [address] [place] Platelet mean volume (Bld) [Entitic vol] 9.5 fL Normal 9.0-12.7 [facility] Comment on above: Order Comment: Speci men Type: BLOOD SPECIMENOrdering Facility: [facility] Address: [address] [place] [address] Performed By: #### 5 7021-8 ####RAD[facility] LABORATORYCLIA [id number] [place] [id number] [place] Platelets (Bld) [#/Vol] 348 10*3/uL Normal 150-400 [facility] Comment on above: Order Comment: Speci men Type: BLOOD SPECIMENOrdering Facility: [facility] Address: [address] [place] [address] Performed By: #### 5 7021-8 ####[facility] LABORATORYCLIA [id number] [place] [id number] [place] Platelets Estimate (Bld) [#/Vol] Adequate Normal [facility] Comment on above: Order Comment: Speci men Type: BLOOD SPECIMENOrdering Facility: [facility] Address: [address] [place] [address] Performed By: #### 5 7021-8 ####[facility] LABORATORYCLIA [id number] [place] [id number] [place] RBC (Bld) [#/Vol] 3.69 10*6/uL Low 4.20-6.00 [facility] Comment on above: Order Comment: Speci men Type: BLOOD SPECIMENOrdering Facility: [facility] Address: [address] [place] [address] Performed By: #### 5 7021-8 ####[facility] LABORATORYCLIA [id number] [place] [id number] [facility] CELL MORPH Reviewed: unremarkable Normal [facility] Comment on above: Order Comment: Speci men Type: BLOOD SPECIMENOrdering Facility: [facility] Address: [address] [place] [address] Performed By: #### 5 7021-8 ####[facility] LABORATORYCLIA [id number] [place] [id number] [place] WBC (Bld) [#/Vol] 31.83 10*3/uL High 3.70-11.00 [facility] Comment on above: Order Comment: Speci men Type: BLOOD SPECIMENOrdering Facility: [facility] Address: [address] [place] [address] Performed By: #### 5 7021-8 ####[facility] LABORATORYCLIA [id number] [place] [id number] [facility] CONSULTon 07-07-2024 CONSULT HNO ID: [id number] Author: AFRICA TANNER RN Service: ? Author Type: Registered Nurse Type: Consults Filed: 07/07/2024 12:55 Note Text: STOMA CARE POST-OPERATIVE ASSESSMENT AND PATIENT EDUCATION Patient Name: Faiza Lozano Date: July 07, 2024 Time: 12:51 PM ET Care Outcome: ostomy assessment ET's Next Scheduled Visit: 07/08/24 anytime for check in STOMA ASSESSMENT Stoma type: End ileostomy Diameter: not measured Location: RLQ Protrusion: Budded Mucosal condition and color: Red and moist. Italo: No Mucocutaneous Junction: Not visible at this time Output: Yes: Flatus and Effluent Peristomal Skin: Other: n/a Location of Skin Impairment: NA Treatment of Skin Impairment: NA Supportive Tissue: Semisoft Pouching System: Samir New Image 2 / flat with drainable pouch Time Increment: 20 minutes Comments: NA Supplies Given: No PATIENT EDUCATION Skin Care Topic: Prevention Observations READINESS TO LEARN Cognitive Ability: in soft restraints at this time, intubated Motivation to Learn: Critically Ill Family Support: girlfriend was present Instruction Provided To: Significant Other Patient Learns Best By: Undecided Factors Affecting Learning: NA Physical Limitations Affecting Learning: Critically ill LEARNING RESPONSE Diagnosis- Skin Impairment: NA Method of Instruction: Verbal instruction Instructional Aids Used: NA Patient/Family Response: Verbalizes understanding of: verbal instruction - Today the pt's girlfriend was taught how to empty the pouch =. She did verbalize understanding and gave a verbal teach back FOLLOW-UP PLAN: Reassess Reinforce Supplemental Material Provided to Patient: Patient Education print outs: Referral Recommendation: undecided Signature: Africa Tanner RN This is an electronically created document. IF PRINTED, PLEASE DO NOT REMOVE FROM THE CHART OR MODIFY PRINTED COPY. Normal [facility] CONSULT PROGon 07-07-2024 CONSULT PROG HNO ID: [id number] Author: ROVERTO VELASQUEZ MD Service: Critical Care Author Type: Resident Type: Consult Progress Note Filed: 07/07/2024 13:45 Note Text: Attestation signed by Ashwini Judd MD at 07/07/2024 3:[address] [facility]FF PHYSICIAN SUPERVISING RESIDENT I have personally reviewed relevant histories about the patient. I personally reviewed today labs and imaging studies. I have personally examined the patient. The progress note obtained and documented by the resident has been reviewed by me. I have discussed the case, and the plan of management of the patient's care with the resident, the pharmacy team and the bedside nurse during the daily round. The following comments revise or confirm relevant shankar components of the note: Critically ill 44 year old male with history of crohn's diease is admitted to ICU for septic shock from perforated ileocolonic anastomosis s/p exlap, hepatic abscess drainage. Active issues #septic shock #hypovolemia #on mechanical ventilation #ANNE MARIE -IV hydration -wean vasopressor -start stress steroids: hydrocortisone 100mg TID -wean to extubate Continue ICU care. Patient Active Hospital Problem List: Septic shock (HCC) Date Noted: 07/06/2024 Crohn's colitis, with intestinal obstruction (HCC) Date Noted: 07/06/2024 Liver abscess Date Noted: 07/06/2024 ANNE MARIE (acute kidney injury) ([facility]) Date Noted: 07/06/2024 On mechanically assisted ventilation ([facility]) Date Noted: 07/07/2024 ICU Checklist Last Documented/Reviewed time: 07/07/2024 1:44 PM A= Assess, Prevent, Manage Pain Pain adequately controlled?: Yes C= Choice of Sedation and Analgesia RASS at Goal?: Yes B= Both Spontaneous Awakening and Breathing Trials Ventilator: None D= Delirium: Assess, Prevent and Manage ICU Delirium Status: CAM Negative - no action required Restraint Status: None E= Early Mobility/Excercise ICU Mobility: ICU Mobility Goal: Move to chair, Stand, Walk, PT/OT consult ordered F= Family Engagement and Empowerment ICU plan of care visit at bedside in last 24 hours: Yes, ICU Team only ICU Disposition: ICU Disposition-POC Detail: To be determined Prevention: Line Status: Arterial line Arterial Line Status: Able to remove today Hdz Status: Present, still need today Pressure Injury Status: None GI/Stress Ulcer Prophylaxis: PPI Nutrition is at Goal: NPO VTE Prophylaxis: Chemoprophylaxis: Low Molecular Wt Heparin The patient remains at risk for sudden, clinically significant deterioration, which requires a high level of preparedness to intervene urgently. I participated in the decision making and personally managed or directed the management of the above life and organ supporting interventions that required my frequent assessment to treat or prevent imminent deterioration. I personally spent 51 minutes of critical care time treating the patient. Time devoted to teaching is not included. Ashwini Judd MD July 07, 2024 3:45 PM [facility] Progress Note Service Date: July 07, 2024 Service Time: 1342 Admission Date: 07/06/2024 Hospital Day: # 1 1 Day Post-Op CARE COORDINATION NOTE Indication for ICU Admission: Shock on vasopressors, s/p emergent ex-lap and left intubated Important/Relevant PMH/PSH: Crohn's disease PING Preadmission Hospital Course: Faiza Lozano is a 44 year old male with long standing Crohn's disease s/p open ileocolic resection in 2007, with current regimen Stelara and 35mg PO Prednisone daily (ongoing Crohn's flare) who presented to the ED for evaluation of significant abdominal pain, inability to tolerate PO intake. Workup showing patient tachycardic and hypotensive with significant lactic acidosis (Lactate 16), thrombocytosis (540), and ANNE MARIE (Cr 1.68), CT A/P showed active Crohn's disease with stricture at RUQ ileocolic anastomosis with perforation at/near anastomosis with large multi-loculated abscess which communicates to large bilobed inferior R hepatic lobe liver abscess. He went urgently to OR for exploration with Dr. Ovalles. Ex-lap, hepatic abscess drainage, resection of prior ileocolonic anastomosis, end ileostomy. - HELEN left in place - Received total of 4L crystalloid pre-op, 4L crystalloid intra-op, 1L albumin, 2u pRBC Admitted to SICU post-op intubated and sedated Chronological List of Surgeries and Major Events (Diagnosis): (Surgeries in bold characters) 07/06/2024: Ex-lap, hepatic abscess drainage, resection of prior ileocolonic anastomosis, end ileostomy. S/p 2u pRBC 07/07/2024: Extubated Major Events within past 24 hours - To OR for emergent ex-lap with abscess evacuation - s/p 2u pRBC - Zosyn start (more content not included)... Normal [facility] Comprehensive metabolic 2000 panelon 07-07-2024 Albumin [Mass/Vol] 2.8 g/dL Low 3.9-4.9 [facility] Comment on above: Order Comment: Speci men Type: BLOOD SPECIMENOrdering Facility: [facility] Address: [address] [place] [address] Performed By: #### 2 4323-8, , 2776-08 ####[facility] LABORATORYCLIA [id number] [place] [id number] [place] ALP [Catalytic activity/Vol] 101 U/L Normal 38-113 [facility] Comment on above: Order Comment: Speci men Type: BLOOD SPECIMENOrdering Facility: [facility] Address: [address] [place] [address] Performed By: #### 2 4323-8, , 2776-08 ####[facility] LABORATORYCLIA [id number] [place] [id number] [place] ALT [Catalytic activity/Vol] 67 U/L High 10-54 [facility] Comment on above: Order Comment: Speci men Type: BLOOD SPECIMENOrdering Facility: [facility] Address: [address] [place] [address] Performed By: #### 2 4323-8, , 2776-08 ####[facility] LABORATORYCLIA [id number] [place] [id number] [place] Anion gap [Moles/Vol] 12 mmol/L Normal 8-15 [facility] Comment on above: Order Comment: Speci men Type: BLOOD SPECIMENOrdering Facility: [facility] Address: [address] [place] [address] Performed By: #### 2 4323-8, , 2776-08 ####[facility] LABORATORYCLIA [id number] [place] [address] [place] AST [Catalytic activity/Vol] 131 U/L High 14-40 [facility] Comment on above: Order Comment: Speci men Type: BLOOD SPECIMENOrdering Facility: [facility] Address: [address] [place] [address] Performed By: #### 2 4323-8, , 2776-08 ####[facility] LABORATORYCLIA [id number] [place] [id number] [place] Bilirubin [Mass/Vol] 1.2 mg/dL Normal 0.2-1.3 [facility] Comment on above: Order Comment: Speci men Type: BLOOD SPECIMENOrdering Facility: [facility] Address: [address] [place] [address] Performed By: #### 2 432-8, , 2776-08 ####[facility] LABORATORYCLIA [id number] [place] [address] [place] Calcium [Mass/Vol] 7.9 mg/dL Low 8.5-10.2 [facility] Comment on above: Order Comment: Speci men Type: BLOOD SPECIMENOrdering Facility: [facility] Address: [address] [place] [address] Performed By: #### 2 4323-8, , 2776-08 ####[facility] LABORATORYCLIA [id number] [place] [id number] [place] Chloride [Moles/Vol] 104 mmol/L Normal 98-107 [facility] Comment on above: Order Comment: Speci men Type: BLOOD SPECIMENOrdering Facility: [facility] Address: [address] [place] [address] Performed By: #### 2 4323-8, , 2776-08 ####[facility] LABORATORYCLIA [id number] [place] [id number] [place] CO2 [Moles/Vol] 21 mmol/L Low 22-30 [facility] Comment on above: Order Comment: Speci men Type: BLOOD SPECIMENOrdering Facility: [facility] Address: [address] [place] [address] Performed By: #### 2 4323-8, , 2776-08 ####D[facility] LABORATORYCLIA [id number] [place] [address] [place] Creatinine [Mass/Vol] 1.23 mg/dL High 0.73-1.22 [facility] Comment on above: Order Comment: Popeye men Type: BLOOD SPECIMENOrdering Facility: [facility] Address: [address] [place] [address] Performed By: #### 2 4323-8, , 2776-08 ####[facility] LABORATORYCLIA [id number] [place] [id number] [place] Creatinine and Glomerular filtration rate.predicted panel (S/P/Bld) 74 mL/min/1.73m??? Normal >=60 [facility] Comment on above: Order Comment: [facility] Type: BLOOD SPECIMENOrdering Facility: [facility] Address: [address] [place] [address] Result Comment: Daria mated Glomerular Filtration Rate (eGFR) is calculated using the 2020 CKD-EPI creatinine equation. This equation utilizes serum creatinine, sex, and age as parameters. The creatinine assay has traceable calibration to isotope dilution-mass spectrometry. Refer to KDIGO guidelines for clinical interpretation. In patients with unstable renal function, e.g. those with acute kidney injury, the eGFR may not accurately reflect actual GFR. Performed By: #### 2 4323-8, , 2776-08 ####[facility] LABORATORYCLIA [id number] [place] [id number] [place] Glucose [Mass/Vol] 157 mg/dL High 74-99 [facility] Comment on above: Order Comment: Amada maciej Type: BLOOD SPECIMENOrdering Facility: [facility] Address: [address] [place] [address] Result Comment: The [place] Diabetes Association (ADA) provides guidance for cutoff values for fasting glucose and random glucose. The ADA defines fasting as no caloric intake for at least 8 hours. Fasting plasma glucose results between 100 to 125 mg/dL indicate increased risk for diabetes (prediabetes). Fasting plasma glucose results greater than or equal to 126 mg/dL meet the criteria for diagnosis of diabetes. In the absence of unequivocal hyperglycemia, results should be confirmed by repeat testing. In a patient with classic symptoms of hyperglycemia or hyperglycemic crisis, random plasma glucose results greater than or equal to 200 mg/dL meet the criteria for diagnosis of diabetes. Reference: Standards of Medical Care in Diabetes 2016, [place] [employer] Association. Diabetes Care. 2016.39(Suppl 1). Performed By: #### 2 4323-8, , 2776-08 ####RAD[facility] LABORATORYCLIA [id number] [place] [address] [place] Potassium [Moles/Vol] 4.8 mmol/L Normal 3.7-5.1 [facility] Comment on above: Order Comment: Speci men Type: BLOOD SPECIMENOrdering Facility: [facility] Address: [address] [place] [address] Performed By: #### 2 4323-8, , 2776-08 ####RAD[facility] LABORATORYCLIA [id number] [place] [id number] [place] Protein [Mass/Vol] 5.8 g/dL Low 6.3-8.0 [facility] Comment on above: Order Comment: Speci men Type: BLOOD SPECIMENOrdering Facility: [facility] Address: [address] [place] [address] Performed By: #### 2 4323-8, , 2776-08 ####[facility] LABORATORYCLIA [id number] [place] [id number] [place] Sodium [Moles/Vol] 137 mmol/L Normal 136-144 [facility] Comment on above: Order Comment: Speci men Type: BLOOD SPECIMENOrdering Facility: [facility] Address: [address] [place] [address] Performed By: #### 2 4323-8, , 2776-08 ####[facility] LABORATORYCLIA [id number] [place] [id number] [place] Urea nitrogen [Mass/Vol] 13 mg/dL Normal 9-24 [facility] Comment on above: Order Comment: Speci men Type: BLOOD SPECIMENOrdering Facility: [facility] Address: [address] [place] [address] [place] [address] Performed By: #### 2 4323-8, 73825-4, 2777-1 ####[facility] LABORATORYCLIA [id number] [place] [id number] [place] ECHOon 07-07-2024 Echocardiography Echocardiography Report: Transthoracic Echo [facility] Date of service: 07/07/2024 7:55:15 AM Ordering physician: ALLISON SAMANIEGO Indication: Hypotension Technologist: Estelle Richardson [facility] Interpreting physician: Tammie Calloway MD PATIENT: Name: FAIZA LOZANO : 1980 Age: 44 years Gender: M Primary rhythm: sinus. Height: 175.30 cm BSA: 1.83 m Weight: 68.95 kg BMI: 22.4 kg/m Heart rate 75 bpm Blood pressure 104/78 mmHg Technically difficult exam due to suboptimal positioning and mechanical ventilation. Color Doppler was utilized to interrogate the cardiac valves assessed and spectral Doppler was utilized to determine the flow velocities and pressure gradients reported in this exam. MEASUREMENTS: Value Indexed Normal Max aortic dimension 3.4 cm Ao < 3.8 Left atrial volume 67 ml (biplane A-L) 37 ml/m Ramesh <= 34 LV ID (diastole) 4.8 cm (2D) 2.62 cm/m LV ID (systole) 4.1 cm (2D) 2.24 cm/m IVS, leaflet tips 0.7 cm (2D) Posterior wall thickness 0.8 cm (2D) Left ventricular mass 117 g (2D) 64 g/m LV stroke volume 63 ml (2D biplane) LV end diastolic volume 114 ml (2D biplane) 62.4 ml/m 34<=EDVi<75 LV end systolic volume 51 ml (2D biplane) 28.0 ml/m Ejection Fraction 55 % (2D biplane) EF > 52 FINDINGS: LEFT VENTRICLE The left ventricle is normal in size. Left ventricular systolic function is normal. Normal left ventricular diastolic function. Mitral annular lateral E/e': 6.1. Mitral annular septal E/e': 7.4. Wall Motion: All scored segments are normal. RIGHT VENTRICLE The right ventricle is normal in size. Right ventricular systolic function is normal. RV systolic tissue Doppler velocity is 13.4 cm/s. Tricuspid annular displacement is 2.5 cm. Estimated right ventricular systolic pressure is 28 mmHg consistent with normal pulmonary artery pressures. Estimated right atrial pressure is 3 mmHg based on IVC assessment. LEFT ATRIUM The left atrial cavity is mildly dilated. Pulmonary Veins: The pulmonary venous pattern showed normal systolic flow. RIGHT ATRIUM The right atrial cavity is normal in size. Inferior Vena Cava: The inferior vena cava appears normal measuring 1.8 cm. The vessel decreases greater than 50 percent with inspiration. MITRAL VALVE The mitral valve leaflets are structurally normal. There is trace mitral valve regurgitation. The pressure half time is 57 msec. The peak mitral E/A ratio is 1.37. The mitral flow deceleration time is 195 msec. TRICUSPID VALVE The tricuspid valve leaflets are structurally normal. There is mild (1+) tricuspid valve regurgitation. AORTIC VALVE The aortic valve was not seen or not interrogated. The peak gradient is 6 mmHg (peak velocity = 118.0 cm/s). PULMONIC VALVE The pulmonic valve was not seen or not interrogated. The peak gradient is 3 mmHg. AORTA The visualized aorta is normal in size. Measurements - Sinus: 3.4 cm. Sinotubular junction 3.2 cm. PULMONARY ARTERIES The pulmonary arteries are unseen or not interrogated. INTERVENTRICULAR SEPTUM The interventricular septum is normal. PERICARDIUM There is no pericardial effusion. CONCLUSIONS: - Technically difficult exam due to suboptimal positioning and mechanical ventilation. - Exam indication: Hypotension - The left ventricle is normal in size. Left ventricular systolic function is normal. EF = 55 5% (2D biplane) Normal left ventricular diastolic function. - The right ventricle is normal in size. Right ventricular systolic function is normal. - The left atrial cavity is mildly dilated. - No significant valvular abnormalities seen. - The patient has not had a prior CC echocardiographic exam for comparison. * * * Final * * * CC [employer] Image : [id number] amicsSISUID Normal [facility] Fibrinogen PPP-mCncon 2023 Fibrinogen Coag (PPP) [Mass/Vol] 642 mg/dL High 200-400 [facility] Comment on above: Order Comment: Amada wing Type: BLOOD SPECIMENOrdering Facility: [facility] Address: [address] [place] [address] Performed By: #### 3 4528-0, 3255-7, 74782-3 ####[facility] LABORATORYCLIA [id number] [place] [id number] [place] Magnesium SerPl-mCncon 07-07 Magnesium [Mass/Vol] 1.7 mg/dL Normal 1.7-2.3 [facility] Comment on above: Order Comment: Amada wing Type: BLOOD SPECIMENOrdering Facility: [facility] Address: [address] [place] [address] Performed By: #### 2 4323-8, 86077-8, 2777-1 ####[facility] LABORATORYCLIA [id number] [place] [id number] [place] PT panel Coag (PPP)on 2023 INR Coag (PPP) [Relative time] 1.3 {INR} Normal 0.9-1.3 [facility] Comment on above: Order Comment: Amada wing Type: BLOOD SPECIMENOrdering Facility: [facility] Address: [address] [place] [address] Result Comment: Mariela min K Antagonist (VKA) Therapeutic Range: INR 2 to 3 (Target INR of 2.5) Note: For patients treated with VKA drugs, such as warfarin, the [employer] [employer] 2012 Guideline recommends a therapeutic INR range of 2 to 3 (target INR of 2.5). This recommendation includes high-risk patients with antiphospholipid syndrome with previous arterial or venous thromboembolism, current-generation mechanical or bioprosthetic aortic heart valve replacement. Note: Patients with mechanical aortic valve replacement and additional risk factors for thromboembolic events (atrial fibrillation, previous thromboembolism, LV dysfunction, hypercoagulable conditions) or an older generation mechanical AVR (i.e., ball in-Cage) or any mechanical MVR should have a INR therapeutic range of 2.5 to 3.5 (target INR of 3). Tatum GH, et al. Chest 2012, 141:7S-47S Gerald RA, et al. [facility] 2017, 70: 252-289 Performed By: #### 3 4528-0, 3255-7, 11015-6 ####[facility] LABORATORYCLIA [id number] [place] [id number] [place] PT Coag (PPP) [Time] 14.5 s High 9.7-13.0 [facility] Comment on above: Order Comment: Speci men Type: BLOOD SPECIMENOrdering Facility: [facility] Address: [address] [place] [address] Performed By: #### 3 4528-0, 3255-7, 63289-3 ####[facility] LABORATORYCLIA [id number] [place] [id number] [place] Phosphate SerPl-mCncon 07-07 Phosphate [Mass/Vol] 4.4 mg/dL Normal 2.7-4.8 [facility] Comment on above: Order Comment: Amada wing Type: BLOOD SPECIMENOrdering Facility: [facility] Address: [address] [place] [address] Performed By: #### 2 4323-8, 49871-3, 2777-1 ####[facility] LABORATORYCLIA [id number] [place] [address] [place] STAPHYLOCOCCUS AUREUS AND MR SA SCREEN, PCR, NASALon 07-07-2024 S. aureus and MRSA panel LINDSAY+probe (Nose) Not detected Normal Not Detected [facility] Comment on above: Order Comment: Popeyei maciej Type: SWABOrdering Facility: [facility] Address: [address] [place] [address] Performed By: #### S APCR ####[facility] LABCLIA [id number] [facility] [id number] [place] [address] [place] XR ABDOMEN 1V SUPINEon 07-07 XR ABDOMEN 1V SUPINE * * *Final Report* * * DATE OF EXAM: Jul 07 2024 12:20AM FVX 5289 - XR ABDOMEN 1V SUPINE / PROCEDURE REASON: Evaluate tube, line or lead position * * * * Physician Interpretation * * * * Single view abdomen Provided history: * 44 years old Male * Evaluate tube, line or lead position Comparison study: None Single view of the abdomen is presented for evaluation. Enteric tube is present with the tip in the left upper quadrant. The side-port lies at the the gastric esophageal junction. No suspicious calcifications are seen. Right lower quadrant stoma is present. Drainage catheter is seen in the right hemithorax and surgical gerry are seen in the midline. The bowel gas pattern appears within normal limits. IMPRESSION: Enteric tube with side-port at the gastroesophageal junction. Advancement of 5-10 cm is recommended for improved placement. [employer] Engineer Sergeant: PSCDilan Transcribe Date/Time: Jul 07 2024 1:16A Dictated by : BERNIE CARTER MD This examination was interpreted and the report reviewed and electronically signed by: BERNIE CARTER MD on Jul 07 2024 1:18AM EST [id number] N Normal [facility] XR CHEST 1V FRONTAL PORTon 1 09-07-2023 XR CHEST 1V FRONTAL PORT * * *Final Report* * * DATE OF EXAM: Jul 07 2024 12:20AM FVX 5376 - XR CHEST 1V FRONTAL PORT / PROCEDURE REASON: Evaluate tube, line, or lead position * * * * Physician Interpretation * * * * EXAMINATION: CHEST RADIOGRAPH (PORTABLE SINGLE VIEW AP) Exam Date/Time: 07/07/2024 12:20 AM CLINICAL HISTORY: Evaluate tube, line, or lead position MQ: XCPR_5 Comparison: None RESULT: Lines, tubes, and devices: ET tube is approximately 4 cm above the selwyn. Enteric tube courses below the diaphragm. Lungs and pleura: Hazy opacities in the lung bases. No large pleural effusions or pneumothorax. Cardiomediastinal silhouette: Stable cardiomediastinal silhouette. Other: Free air in the included upper abdomen related to exploratory laparotomy. IMPRESSION: ET tube is approximately 4 cm above the selwyn. Bibasilar hazy opacities could be due to atelectasis or infection/aspiration. [employer] Sergeant: ARIANNA Transcribe Date/Time: Jul 07 2024 1:16A Dictated by : GINNY OWEN MD This examination was interpreted and the report reviewed and electronically signed by: GINNY OWEN MD on Jul 07 2024 1:19AM EST [id number] N Normal [facility] aPTT PPPon 07-07-2024 aPTT Coag (PPP) [Time] 28.6 s Normal 23.0-32.4 [facility] Comment on above: Order Comment: Speci men Type: BLOOD SPECIMENOrdering Facility: [facility] Address: [address] [place] [address] Performed By: #### 3 4528-0, 3255-7, 66174-5 ####[facility] LABORATORYCLIA [id number] [address] ABO AND RH ONLYon 07-06-2024 ABO A [facility] Comment on above: Order Comment: Speci men Type: BLOOD SPECIMENOrdering Facility: [facility] Address: [address] [place] [address] Performed By: #### A NOAM AARON ####[facility]LOOD BANKCLIA [id number] [address] ALLIED HEALTHon 07-06-2024 [facility] HNO ID: [id number] Author: MARLIN HANSON RT(R) Service: ? Author Type: Technologist Type: Allied Health Filed: 07/07/2024 00:20 Note Text: Radiology Service Progress Note PATIENT NAME: Faiza Lozano DATE OF SERVICE: July 07, 2024 TIME: 12:20 AM PATIENT IDENTITY VERIFICATION COMPLETED USING TWO (2) IDENTIFIERS: Name and Date of confirmed by identification band and Name and Date of obtained from a relative, guardian or prior caregiver.. FALL SCREENING: Has the patient had 2 falls in the last year or 1 fall with injury or currently using an Ambulatory Assistive Device (Walker, Cane, Wheelchair, Crutches, etc.)? Inpatient: Screened on floor PATIENT GENDER DATA: Male PATIENT RELEVANT IMPLANT DATA REVIEWED: Not Applicable PATIENT PRESENTS WITH AN IMPLANTABLE OR ATTACHED COLOR CHECKER ROVING OR YARN: No RADIOLOGY DEPARTMENT: General X-ray: Exam(s) Completed: Chest X-Ray Abdomen X-Ray: Abdomen PERIPHERAL IV DATA: Not applicable SIGNED BY: RT Randolph(R) July 07, 2024 12:20 AM [facility] HNO ID: [id number] Author: NATHAN DANIELS CT Service: Radiology Author Type: Lockstitch Sleeve Setter Type: Allied Health Filed: 07/06/2024 18:57 Note Text: Radiology Service Progress Note DATE OF SERVICE: July 06, 2024 TIME: 6:56 PM PATIENT IDENTITY VERIFICATION COMPLETED USING TWO (2) STANDARD IDENTIFIERS: Name and Date of confirmed by patient verbally. FALL SCREENING: Has the patient had 2 falls in the last year or 1 fall with injury or currently using an Ambulatory Assistive Device (Walker, Cane, Wheelchair, Crutches, etc.)? No PATIENT GENDER DATA: Male PATIENT RELEVANT IMPLANT DATA REVIEWED: Not Applicable PATIENT PRESENTS WITH AN IMPLANTABLE OR ATTACHED COLOR CHECKER ROVING OR YARN: No ALLERGIES: Reviewed and unchanged CONTRAST ALLERGY: NO. EXAM: CT -CONTRAST INDUCED NEPHROPATHY RISK FACTORS: Not applicable CREATININE: Creatinine Date Value Ref Range Status 07/06/2024 1.65 (H) 0.73 - 1.22 mg/dL Final Estimated Glomerular Filtration Rate Date Value Ref Range Status 07/06/2024 52 (L) >=60 mL/min/1.73m? Final Comment: Estimated Glomerular Filtration Rate (eGFR) is calculated using the 2020 CKD-EPI creatinine equation. This equation utilizes serum creatinine, sex, and age as parameters. The creatinine assay has traceable calibration to isotope dilution-mass spectrometry. Refer to KDIGO guidelines for clinical interpretation. In patients with unstable renal function, e.g. those with acute kidney injury, the eGFR may not accurately reflect actual GFR. P.O.C.T. RESULTS: POC done: Yes, See Lab Tab July 06, 2024 TREATMENT: N/A and No Hydration needed. PERIPHERAL IV DATA: Inpatient - refer to [facility] documentation RADIOLOGY DEPARTMENT: CT; Exam(s) Completed: Abdomen/Pelvis SIGNATURE: LUCY Concepcion PATIENT NAME: Faiza Lozano DATE: July 06, 2024 TIME: 6:56 PM [facility] ANES PRE-OPon 07-06-2024 ANES PRE-OP HNO ID: [id number] Author: SHAKIRA FLOWER MD Service: Anesthesiology Author Type: Anesthesiologist Type: Anesthesia Preprocedure Evaluation Filed: 07/06/2024 20:49 Note Text: ANESTHESIOLOGY DAY OF SURGERY NOTE : 1980 Procedure Information Anesthesia Start Date/Time: 07/06/242023 Procedure: EXPLORATORY LAPAROTOMY ADULT (Abdomen) Location: OR06 / [facility] OR Surgeons: Amanda Ovalles MD Estimated body mass index is 22.45 kg/m? as calculated from the following: Height as of this encounter: 175.3 cm (5' 9 ). Weight as of this encounter: 68.9 kg (152 lb). Most recent hematocrit and potassium results: Hematocrit 42.1 07/06/2024 Potassium 4.0 07/06/2024 Relevant Problems No relevant active problems I - PHYSICAL EVALUATION AIRWAY Patient intubated: No. Tracheostomy tube not present Mallampati: II. TM distance: >3 FB. Neck ROM: full ROM without neurological symptoms. Mouth opening: adequate. Short neck: no. Thick neck: no DENTAL Dental findings: missing tooth/teeth, chipped and poor dentition. Additional exam findings: yes. CARDIOVASCULAR Rate: normal PULMONARY Breath sounds clear to auscultation. II - ANESTHESIA PLAN ASA Score: 4; emergent. Anesthetic Plan: general Airway type: ETT The patient is not a current smoker. NPO Status: adequate Beta Carlos Monitoring Plan Monitoring plan: standard ASA. Post Procedure Analgesic Plan Postoperative analgesic plan: multimodal analgesia. Informed Consent Anesthetic risks, benefits, alternatives, personnel and consent discussed: yes. Patient / Responsible Alliance Party agrees to proceed: yes Patient / Surrogate agrees to blood products: Yes DNR status not reviewed with patient and/or family prior to surgery. Significant changes in the patient condition since the History and Physical, not otherwise documented in primary service progress note: no. Potential Anesthesia issues that may suggest increased risk of complications or contraindication to planned procedure: none. Vitals Value Taken Time BP 79/55 07/06/241999 Pulse 128 07/06/242009 Resp 25 07/06/242009 Temp SpO2 94 % 07/06/24 1914 Vitals shown include unfiled device data. Facility-Administered Medications as of 07/06/2024 Medication Dose Route Frequency [COMPLETED] NaCl 0.9% 1,000 mL iv bolus 1,000 mL INTRAVENOUS ONCE iv contrast (radiology procedure) INTRAVENOUS DIRECTED PRN [COMPLETED] predniSONE 40 mg tab(s) (DELTASONE) 40 mg ORAL ONCE [COMPLETED] fentaNYL 50 mcg/mL 50 mcg injection (SUBLIMAZE) 50 mcg INTRAVENOUS ONCE [COMPLETED] NaCl 0.9% 1,000 mL iv bolus 1,000 mL INTRAVENOUS ONCE [COMPLETED] pantoprazole 40 mg injection (PROTONIX) 40 mg INTRAVENOUS ONCE [COMPLETED] fentaNYL 50 mcg/mL 50 mcg injection (SUBLIMAZE) 50 mcg INTRAVENOUS ONCE NaCl 0.9% iv flush bag 20 mL INTRAVENOUS PRN piperacillin-tazobact am iv piggyback 3.375 g in dextrose (iso-osmotic) 50 mL (ZOSYN) 3.375 g INTRAVENOUS q 6 H [COMPLETED] NaCl 0.9% 1,000 mL iv bolus 1,000 mL INTRAVENOUS ONCE [COMPLETED] NaCl 0.9% 1,000 mL iv bolus 1,000 mL INTRAVENOUS ONCE fluconazole iv piggyback 400 mg in NaCl 200 mL (iso-osmotic) (DIFLUCAN) 400 mg INTRAVENOUS ONCE midazolam (PF) injection (VERSED) INTRAVENOUS PRN lactated ringers iv infusion INTRAVENOUS X (ONE-STEP ONLY) CONTINUOUS PRN lactated ringers iv infusion INTRAVENOUS X (ONE-STEP ONLY) CONTINUOUS PRN albumin (5%) infusion INTRAVENOUS PRN PHENYLephrine injection INTRAVENOUS PRN PHENYLephrine 10 mg in NaCl 0.9% 100 mL (NICOL-SYNEPHRINE) INTRAVENOUS X (ONE-STEP ONLY) CONTINUOUS PRN ceFAZolin iv piggyback 2 g in D5W (iso-osmotic) 100 mL (ANCEF) INTRAVENOUS PRN hydrocortisone sodium succinate (PF) injection (Solu-CORTEF) INTRAVENOUS PRN NORepinephrine iv infusion 16 mg in D5W 250 mL (LEVOPHED) INTRAVENOUS X (ONE-STEP ONLY) CONTINUOUS PRN etomidate injection (AMIDATE) INTRAVENOUS PRN succinylcholine injection (QUELICIN) INTRAVENOUS PRN lidocaine (PF) 20 mg/mL (2 %) injection (XYLOCAINE) INTRAVENOUS PRN Outpatient Medications as of 07/06/2024 Medication Sig OLANZapine (ZYPREXA) 5 mg tablet Take 5 mg by mouth. predniSONE (DELTASONE) 5 mg tablet FLUoxetine (PROZAC) 20 mg capsule Take 40 mg by mouth. I have interviewed and examined the patient. I have reviewed the medical record and/or the pre-anesthesia evaluation, pertinent labs, and test results. This contains updated information obtained within 48 hours of Surgery/Procedure. SIGNATURE: Shakira Flower MD PATIENT NAME: Faiza Lozano DATE: July 06, 2024 TIME: 8:48 PM CSN: [id number] Normal [facility] ARTERIAL BLOOD GASESon 07-06 Base deficit (BldA) [Moles/Vol] -6 mmol/L Low -2-0 [facility] Comment on above: Order Comment: Amada wing Type: ARTERIAL BLOOD SPECIMENOrdering Facility: [facility] Address: [address] [place] [address] Performed By: #### A LLBG ####[facility] LABORATORYCLIA [id number] [address] [place] Calcium.ionized (Bld) [Mass/Vol] 1.10 mmol/L Normal 1.08-1.30 [facility] Comment on above: Order Comment: Amada wing Type: ARTERIAL BLOOD SPECIMENOrdering Facility: [facility] Address: [address] [place] [address] Performed By: #### A LLBG ####[facility] LABORATORYCLIA [id number] [place] [id number] [place] Calcium.ionized adjusted to pH 7.4 (BldA) [Moles/Vol] 1.04 mmol/L Low 1.08-1.30 [facility] Comment on above: Order Comment: Amada wing Type: ARTERIAL BLOOD SPECIMENOrdering Facility: [facility] Address: [address] [place] [address] Performed By: #### A LLBG ####[facility] LABORATORYCLIA [id number] [place] [id number] [place] Carboxyhemoglobin (BldA) [Mass fraction] 0.7 % Normal 0.0-2.0 [facility] Comment on above: Order Comment: Amada wing Type: ARTERIAL BLOOD SPECIMENOrdering Facility: [facility] Address: [address] [place] [address] Result Comment: Carb oxyhemoglobin Reference Range for Smokers: 2.0-8.0% Performed By: #### A LLBG ####[facility] LABORATORYCLIA [id number] [place] [address] [place] Chloride [Moles/Vol] 108 mmol/L High 97-105 [facility] Comment on above: Order Comment: Speci men Type: ARTERIAL BLOOD SPECIMENOrdering Facility: [facility] Address: [address] [place] [address] Performed By: #### A LLBG ####[facility] LABORATORYCLIA [id number] [place] [address] [place] CO2 (Bld) [Partial pressure] 40 mm Hg Normal 36-46 [facility] Comment on above: Order Comment: Speci men Type: ARTERIAL BLOOD SPECIMENOrdering Facility: [facility] Address: [address] [place] [address] Performed By: #### A LLBG ####[facility] LABORATORYCLIA [id number] [address] [place] CO2 adjusted to patient's actual temperature (Bld) [Partial pressure] Normal [facility] Comment on above: Order Comment: Speci men Type: ARTERIAL BLOOD SPECIMENOrdering Facility: [facility] Address: [address] [place] [address] Performed By: #### A LLBG ####[facility] LABORATORYCLIA [id number] [place] [address] [place] Glucose [Mass/Vol] 132 mg/dL High 60-105 [facility] Comment on above: Order Comment: Speci men Type: ARTERIAL BLOOD SPECIMENOrdering Facility: [facility] Address: [address] [place] [address] Performed By: #### A LLBG ####[facility] LABORATORYCLIA [id number] [place] [id number] [place] HCO3 (Bld) [Moles/Vol] 19 mmol/L Low 22-26 [facility] Comment on above: Order Comment: Speci men Type: ARTERIAL BLOOD SPECIMENOrdering Facility: [facility] Address: [address] [place] [address] Performed By: #### A LLBG ####[facility] LABORATORYCLIA [id number] [place] [id number] [place] Hematocrit (Bld) [Volume fraction] 32.2 % Low 39.0-51.0 [facility] Comment on above: Order Comment: Speci men Type: ARTERIAL BLOOD SPECIMENOrdering Facility: [facility] Address: [address] [place] [address] Performed By: #### A LLBG ####[facility] LABORATORYCLIA [id number] [place] [id number] [place] Hemoglobin (Bld) [Mass/Vol] 10.4 g/dL Low 13.0-17.0 [facility] Comment on above: Order Comment: Speci men Type: ARTERIAL BLOOD SPECIMENOrdering Facility: [facility] Address: [address] [place] [address] Performed By: #### A LLBG ####[facility] LABORATORYCLIA [id number] [place] [id number] [place] Lactate [Moles/Vol] 2.8 mmol/L High 0.5-2.2 [facility] Comment on above: Order Comment: Speci men Type: ARTERIAL BLOOD SPECIMENOrdering Facility: [facility] Address: [address] [place] [address] Performed By: #### A LLBG ####[facility] LABORATORYCLIA [id number] [place] [id number] [place] Methemoglobin (Bld) [Mass fraction] 1.1 % Normal 0.0-1.5 [facility] Comment on above: Order Comment: Speci men Type: ARTERIAL BLOOD SPECIMENOrdering Facility: [facility] Address: [address] [place] [address] Performed By: #### A LLBG ####[facility] LABORATORYCLIA [id number] [place] [id number] [place] Oxygen (Bld) [Partial pressure] 117 mm Hg High 85-95 [facility] Comment on above: Order Comment: Speci men Type: ARTERIAL BLOOD SPECIMENOrdering Facility: [facility] Address: [address] [place] [address] Performed By: #### A LLBG ####[facility] LABORATORYCLIA [id number] [place] [id number] [place] Oxygen adjusted to patient's actual temperature (Bld) [Partial pressure] Normal [facility] Comment on above: Order Comment: Speci men Type: ARTERIAL BLOOD SPECIMENOrdering Facility: [facility] Address: [address] [place] [address] Performed By: #### A LLBG ####[facility] LABORATORYCLIA [id number] [place] [address] [place] Oxyhemoglobin (BldA) [Mass fraction] 96 % Normal 95-98 [facility] Comment on above: Order Comment: Speci men Type: ARTERIAL BLOOD SPECIMENOrdering Facility: [facility] Address: [address] [place] [address] Performed By: #### A LLBG ####[facility] LABORATORYCLIA [id number] [place] [address] [place] pH (Bld) 7.30 [pH] Low 7.35-7.45 [facility] Comment on above: Order Comment: Speci men Type: ARTERIAL BLOOD SPECIMENOrdering Facility: [facility] Address: [address] [place] [address] Performed By: #### A LLBG ####[facility] LABORATORYCLIA [id number] [place] [address] [place] pH adjusted to patient's actual temperature (Bld) Normal [facility] Comment on above: Order Comment: Speci men Type: ARTERIAL BLOOD SPECIMENOrdering Facility: [facility] Address: [address] [place] [address] Performed By: #### A LLBG ####[facility] LABORATORYCLIA [id number] [place] [address] [place] Potassium [Moles/Vol] 3.8 mmol/L Normal 3.5-5.0 [facility] Comment on above: Order Comment: Speci men Type: ARTERIAL BLOOD SPECIMENOrdering Facility: [facility] Address: [address] [place] [address] Performed By: #### A LLBG ####[facility] LABORATORYCLIA [id number] [place] [id number] [place] Sodium [Moles/Vol] 130 mmol/L Low 136-144 [facility] Comment on above: Order Comment: Speci men Type: ARTERIAL BLOOD SPECIMENOrdering Facility: [facility] Address: [address] [place] [address] Performed By: #### A LLBG ####[facility] LABORATORYCLIA [id number] [place] [address] [place] Base deficit (BldA) [Moles/Vol] -6 mmol/L Low -2-0 [facility] Comment on above: Order Comment: Speci men Type: ARTERIAL BLOOD SPECIMENOrdering Facility: [facility] Address: [address] [place] [address] Performed By: #### A LLBG ####[facility] LABORATORYCLIA [id number] [place] [address] [place] Calcium.ionized (Bld) [Mass/Vol] 1.04 mmol/L Low 1.08-1.30 [facility] Comment on above: Order Comment: Speci men Type: ARTERIAL BLOOD SPECIMENOrdering Facility: [facility] Address: [address] [place] [address] Performed By: #### A LLBG ####[facility] LABORATORYCLIA [id number] [place] [address] [place] Calcium.ionized adjusted to pH 7.4 (BldA) [Moles/Vol] 1.02 mmol/L Low 1.08-1.30 [facility] Comment on above: Order Comment: Speci men Type: ARTERIAL BLOOD SPECIMENOrdering Facility: [facility] Address: [address] [place] [address] Performed By: #### A LLBG ####[facility] LABORATORYCLIA [id number] [place] [id number] [place] Carboxyhemoglobin (BldA) [Mass fraction] <0.0 Low 0.0-2.0 [facility] Comment on above: Order Comment: Speci men Type: ARTERIAL BLOOD SPECIMENOrdering Facility: [facility] Address: [address] [place] [address] Result Comment: Carb oxyhemoglobin Reference Range for Smokers: 2.0-8.0% Performed By: #### A LLBG ####[facility] LABORATORYCLIA [id number] [place] [id number] [place] Chloride [Moles/Vol] 107 mmol/L High 97-105 [facility] Comment on above: Order Comment: Speci men Type: ARTERIAL BLOOD SPECIMENOrdering Facility: [facility] Address: [address] [place] [address] Performed By: #### A LLBG ####[facility] LABORATORYCLIA [id number] [place] [address] [place] CO2 (Bld) [Partial pressure] 34 mm Hg Low 36-46 [facility] Comment on above: Order Comment: Speci men Type: ARTERIAL BLOOD SPECIMENOrdering Facility: [facility] Address: [address] [place] [address] Performed By: #### A LLBG ####[facility] LABORATORYCLIA [id number] [place] [address] [place] CO2 adjusted to patient's actual temperature (Bld) [Partial pressure] Normal [facility] Comment on above: Order Comment: Speci men Type: ARTERIAL BLOOD SPECIMENOrdering Facility: [facility] Address: [address] [place] [address] Performed By: #### A LLBG ####[facility]ATORYCLIA [id number] [place] [id number] [place] Glucose [Mass/Vol] 109 mg/dL High 60-105 [facility] Comment on above: Order Comment: Speci men Type: ARTERIAL BLOOD SPECIMENOrdering Facility: [facility] Address: [address] [place] [address] Performed By: #### A LLBG ####[facility]ATORYCLIA [id number] [place] [address] [place] HCO3 (Bld) [Moles/Vol] 19 mmol/L Low 22-26 [facility] Comment on above: Order Comment: Speci men Type: ARTERIAL BLOOD SPECIMENOrdering Facility: [facility] Address: [address] [place] [address] Performed By: #### A LLBG ####[facility]ORATORYCLIA [id number] [place] [address] [place] Hematocrit (Bld) [Volume fraction] 26.3 % Low 39.0-51.0 [facility] Comment on above: Order Comment: Speci men Type: ARTERIAL BLOOD SPECIMENOrdering Facility: [facility] Address: [address] [place] [address] Performed By: #### A LLBG ####[facility]ATORYCLIA [id number] [place] [address] [place] Hemoglobin (Bld) [Mass/Vol] 8.5 g/dL Low 13.0-17.0 [facility] Comment on above: Order Comment: Speci men Type: ARTERIAL BLOOD SPECIMENOrdering Facility: [facility] Address: [address] [place] [address] Performed By: #### A LLBG ####[facility]ATORYCLIA [id number] [place] [address] [place] Lactate [Moles/Vol] 3.8 mmol/L High 0.5-2.2 [facility] Comment on above: Order Comment: Speci men Type: ARTERIAL BLOOD SPECIMENOrdering Facility: [facility] Address: [address] [place] [address] Performed By: #### A LLBG ####[facility] LABORATORYCLIA [id number] [place] [id number] [place] Methemoglobin (Bld) [Mass fraction] 0.6 % Normal 0.0-1.5 [facility] Comment on above: Order Comment: Speci men Type: ARTERIAL BLOOD SPECIMENOrdering Facility: [facility] Address: [address] [place] [address] Performed By: #### A LLBG ####[facility] LABORATORYCLIA [id number] [address] [place] Oxygen (Bld) [Partial pressure] 113 mm Hg High 85-95 [facility] Comment on above: Order Comment: Speci men Type: ARTERIAL BLOOD SPECIMENOrdering Facility: [facility] Address: [address] [place] [address] Performed By: #### A LLBG ####[facility] LABORATORYCLIA [id number] [address] [place] Oxygen adjusted to patient's actual temperature (Bld) [Partial pressure] Normal [facility] Comment on above: Order Comment: Speci men Type: ARTERIAL BLOOD SPECIMENOrdering Facility: [facility] Address: [address] [place] [address] Performed By: #### A LLBG ####[facility] LABORATORYCLIA [id number] [address] [place] Oxyhemoglobin (BldA) [Mass fraction] 95 % Normal 95-98 [facility] Comment on above: Order Comment: Speci men Type: ARTERIAL BLOOD SPECIMENOrdering Facility: [facility] Address: [address] [place] [address] Performed By: #### A LLBG ####[facility] LABORATORYCLIA [id number] [place] [address] [place] pH (Bld) 7.36 [pH] Normal 7.35-7.45 [facility] Comment on above: Order Comment: Speci men Type: ARTERIAL BLOOD SPECIMENOrdering Facility: [facility] Address: [address] [place] [address] Performed By: #### A LLBG ####[facility] LABORATORYCLIA [id number] [address] [place] pH adjusted to patient's actual temperature (Bld) Normal [facility] Comment on above: Order Comment: Speci men Type: ARTERIAL BLOOD SPECIMENOrdering Facility: [facility] Address: [address] [place] [address] Performed By: #### A LLBG ####[facility]ORATORYCLIA [id number] [place] [address] [place] Potassium [Moles/Vol] 3.4 mmol/L Low 3.5-5.0 [facility] Comment on above: Order Comment: Speci men Type: ARTERIAL BLOOD SPECIMENOrdering Facility: [facility] Address: [address] [place] [address] Performed By: #### A LLBG ####[facility]ATORYCLIA [id number] [place] [address] [place] Sodium [Moles/Vol] 131 mmol/L Low 136-144 [facility] Comment on above: Order Comment: Speci men Type: ARTERIAL BLOOD SPECIMENOrdering Facility: [facility] Address: [address] [place] [address] Performed By: #### A LLBG ####[facility]ORATORYCLIA [id number] [address] STATES OF [facility] BRIEF OP NOTon 07-06-2024 BRIEF OP NOT HNO ID: [id number] Author: SILAS BEST MD Service: Colorectal Author Type: Resident Type: Brief Op Note Filed: 07/07/2024 00:00 Note Text: DDSI BRIEF OP NOTE LOG ID: [id number] SURGERY/PROCEDURE DATE: 07/06/2024 INCISION/PROCEDURE START TIME: 8:53 PM INCISION CLOSE/PROCEDURE END TIME: 11:11 PM SURGEON(S)/PROCEDURAL IST(S) AND QUALITY ASSURANCE MONITOR CHASSIS(S): Surgeons and Role: * Amanda Ovalles MD - Primary * Silas Best MD - Resident - Assisting * Shivani Cota MD - Resident - Assisting No Additional Staff SURGERY/PROCEDURE(S): Exploratory laparotomy, hepatic abscess drainage, prior ileocolonic anastomosis resection, end ileostomy ANESTHESIA: General FINDINGS: - Walled-off subhepatic abscess extending into the right lobe liver parenchyma containing at least 1L of pus, presumed to be secondary to ileocolonic perforation at prior anastomosis - Moderate ascites - Small bowel edema close to the prior anastomosis, remaining small bowel with no evidence of inflammation - See operative report for further details ESTIMATED BLOOD LOSS: 400 mls Specimens: ID Type Source Tests Collected by Time Destination 1 : Blood Blood CONFIRM BLOOD TYPE Zoraida Lujan AA 07/06/2024 8:39 PM 2 : Blood Blood SEPSIS LACTATE (Canceled) Amanda Ovalles MD 07/06/2024 9:17 PM 3 : Blood, Arterial Blood, Arterial ARTERIAL BLOOD GASES Amanda Ovalles MD 07/06/2024 9:17 PM A : Ileocolic Anastomosis Tissue Small Bowel, Ileostomy SURGICAL PATHOLOGY Amanda Ovalles MD 07/06/2024 10:05 PM Implants: * No implants in log * Drains: Subhepatic HELEN directed to the prior abscess cavity COMPLICATIONS: None Post-Op Plan: Recover in PACU. PRE-OP/PRE-PROCEDURE DIAGNOSIS: Subhepatic abscess secondary to colonic perforation, Crohn's disease POST-OP/POST-PROCEDUR E DIAGNOSIS: Same as Preop SIGNATURE: Silas Best MD PATIENT NAME: Faiza Lozano DATE: July 06, 2024 TIME: 11:49 PM PAGER/CONTACT #: Pager: [phone] ([facility] Blue) For weekday evenings (6PM-6AM) or weekends/holidays, please page [phone] ([facility] Gen Surg weekends/nights) Normal [facility] Bacteria Bld Culton 07-06-20 Bacteria identified Cx Nom (Bld) ORGANISM ID: 1 Streptococcus anginosus group Refer to specimen collected on 07/06/2024 1841 ([id number]) GRAM STAIN: Gram positive cocci in pairs and chains Abnormal [facility] Comment on above: Performed By: #### 6 00-7 ####[facility] LABCLIA [id number] [place] [address] [place] Bacteria identified Cx Nom (Bld) ORGANISM ID: 1 Streptococcus anginosus group GRAM STAIN: Gram positive cocci in pairs and chains This blood culture had less than the recommended 8 ml per bottle, which could decrease the sensitivity of the test. ORGANISM ID: 1 (STREPTOCOCCUS ANGINOSUS GROUP) ------ ANTIBIOTIC INTERPRETATION AMY STATUS REFERENCE RANGE ------ Penicillin G S 0.12 F Susceptible <=0.125 , Intermediate >.125 , Resistant >=4 Ceftriaxone S 0.50 F Susceptible <=1 , Intermediate >1 , Resistant >2 Clindamycin S <=0.12 F Susceptible <=0.25 , Intermediate >.25 , Resistant >.5 Vancomycin S 1 F Susceptible <=1 , Nonsusceptible >1 Abnormal [facility] Comment on above: Performed By: #### 6 00-7, [id number] ####[facility] LABCLIA [id number] [facility] [place] [address] [place] CBC W Auto Differential pane l (Bld)on 07-06-2024 Basophils (Bld) [#/Vol] 10*3/uL Normal <0.11 [facility] Comment on above: Order Comment: Speci men Type: BLOOD SPECIMENOrdering Facility: [facility] Address: [address] [place] [address] Performed By: #### 5 7021-8, [id number] ####[facility] LABCLIA [id number] [facility] [place] [address] [place] Basophils/100 WBC (Bld) 0.3 % Normal [facility] Comment on above: Order Comment: Speci men Type: BLOOD SPECIMENOrdering Facility: [facility] Address: [address] [place] [address] Performed By: #### 5 7021-8, [id number] ####[facility] LABCLIA [id number] [place] [address] [place] Differential cell count method Nom (Bld) Auto Normal [facility] Comment on above: Order Comment: Speci men Type: BLOOD SPECIMENOrdering Facility: [facility] Address: [address] [place] [address] Performed By: #### 5 7021-8, [id number] ####[facility] LABCLIA [id number] [place] [address] [place] Eosinophils (Bld) [#/Vol] 10*3/uL Normal <0.46 [facility] Comment on above: Order Comment: Speci men Type: BLOOD SPECIMENOrdering Facility: [facility] Address: [address] [place] [address] Performed By: #### 5 7021-8, [id number] ####[facility] LABCLIA [id number] [place] [address] [place] Eosinophils/100 WBC (Bld) 0.2 % Normal [facility] Comment on above: Order Comment: Speci men Type: BLOOD SPECIMENOrdering Facility: [facility] Address: [address] [place] [address] Performed By: #### 5 7021-8, [id number] ####[facility] LABCLIA [id number] [place] [address] [place] Erythrocyte distribution width (RBC) [Ratio] 13.1 % Normal 11.5-15.0 [facility] Comment on above: Order Comment: Speci men Type: BLOOD SPECIMENOrdering Facility: [facility] Address: [address] [place] [address] Performed By: #### 5 7021-8, [id number] ####[facility] LABCLIA [id number] [place] [address] [place] Hematocrit (Bld) [Volume fraction] 42.1 % Normal 39.0-51.0 [facility] Comment on above: Order Comment: Speci men Type: BLOOD SPECIMENOrdering Facility: [facility] Address: [address] [place] [address] Performed By: #### 5 7021-8, [id number] ####[facility] LABCLIA [id number] [place] [address] [place] Hemoglobin (Bld) [Mass/Vol] 13.3 g/dL Normal 13.0-17.0 [facility] Comment on above: Order Comment: Speci men Type: BLOOD SPECIMENOrdering Facility: [facility] Address: [address] [place] [address] Performed By: #### 5 7021-8, [id number] ####[facility] LABCLIA [id number] [place] [address] [place] Immature granulocytes (Bld) [#/Vol] 0.04 10*3/uL Normal <0.10 [facility] Comment on above: Order Comment: Speci men Type: BLOOD SPECIMENOrdering Facility: [facility] Address: [address] [place] [address] Performed By: #### 5 7021-8, [id number] ####[facility] LABCLIA [id number] [place] [address] [place] Immature granulocytes/100 WBC (Bld) 0.6 % Normal [facility] Comment on above: Order Comment: Speci men Type: BLOOD SPECIMENOrdering Facility: [facility] Address: [address] [place] [address] Performed By: #### 5 7021-8, [id number] ####[facility] LABCLIA [id number] [place] [address] [place] Lymphocytes (Bld) [#/Vol] 0.39 10*3/uL Low 1.00-4.00 [facility] Comment on above: Order Comment: Speci men Type: BLOOD SPECIMENOrdering Facility: [facility] Address: [address] [place] [address] Performed By: #### 5 7021-8, [id number] ####[facility] LABCLIA [id number] [place] [address] [place] Lymphocytes/100 WBC (Bld) 6.2 % Normal [facility] Comment on above: Order Comment: Speci men Type: BLOOD SPECIMENOrdering Facility: [facility] Address: [address] [place] [address] Performed By: #### 5 7021-8, [id number] ####[facility] LABCLIA [id number] [place] [address] [place] MCH (RBC) [Entitic mass] 28.9 pg Normal 26.0-34.0 [facility] Comment on above: Order Comment: Speci men Type: BLOOD SPECIMENOrdering Facility: [facility] Address: [address] [place] [address] Performed By: #### 5 7021-8, [id number] ####[facility] LABCLIA [id number] [place] [address] [place] MCHC (RBC) [Mass/Vol] 31.6 g/dL Normal 30.5-36.0 [facility] Comment on above: Order Comment: Speci men Type: BLOOD SPECIMENOrdering Facility: [facility] Address: [address] [place] [address] Performed By: #### 5 7021-8, [id number] ####[facility] LABCLIA [id number] [place] [address] [place] MCV (RBC) [Entitic vol] 91.5 fL Normal 80.0-100.0 [facility] Comment on above: Order Comment: Speci men Type: BLOOD SPECIMENOrdering Facility: [facility] Address: [address] [place] [address] Performed By: #### 5 7021-8, [id number] ####[facility] LABCLIA [id number] [place] [address] [place] Monocytes (Bld) [#/Vol] 0.04 10*3/uL Normal <0.87 [facility] Comment on above: Order Comment: Speci men Type: BLOOD SPECIMENOrdering Facility: [facility] Address: [address] [place] [address] Performed By: #### 5 7021-8, [id number] ####[facility] LABCLIA [id number] [place] [address] [place] Monocytes/100 WBC (Bld) 0.6 % Normal [facility] Comment on above: Order Comment: Speci men Type: BLOOD SPECIMENOrdering Facility: [facility] Address: [address] [place] [address] Performed By: #### 5 7021-8, [id number] ####[facility] LABCLIA [id number] [place] [address] [place] Neutrophils (Bld) [#/Vol] 5.84 10*3/uL Normal 1.45-7.50 [facility] Comment on above: Order Comment: Speci men Type: BLOOD SPECIMENOrdering Facility: [facility] Address: [address] [place] [address] Performed By: #### 5 7021-8, [id number] ####[facility] LABCLIA [id number] [place] [address] [place] Neutrophils/100 WBC (Bld) 92.1 % Normal [facility] Comment on above: Order Comment: Speci men Type: BLOOD SPECIMENOrdering Facility: [facility] Address: [address] [place] [address] Performed By: #### 5 7021-8, [id number] ####[facility] LABCLIA [id number] [place] [address] [place] Nucleated RBC (Bld) [#/Vol] 10*3/uL Normal <0.01 [facility] Comment on above: Order Comment: Speci men Type: BLOOD SPECIMENOrdering Facility: [facility] Address: [address] [place] [address] Performed By: #### 5 7021-8, [id number] ####[facility] LABCLIA [id number] [place] [id number] [place] Nucleated RBC/100 WBC (Bld) [Ratio] 0.0 /100 WBC Normal [facility] Comment on above: Order Comment: Speci men Type: BLOOD SPECIMENOrdering Facility: [facility] Address: [address] [place] [address] Performed By: #### 5 7021-8, [id number] ####[facility] LABCLIA [id number] [place] [address] [place] Platelet mean volume (Bld) [Entitic vol] 9.2 fL Normal 9.0-12.7 [facility] Comment on above: Order Comment: Speci men Type: BLOOD SPECIMENOrdering Facility: [facility] Address: [address] [place] [address] Performed By: #### 5 7021-8, [id number] ####[facility] LABCLIA [id number] [place] [address] [place] Platelets (Bld) [#/Vol] 540 10*3/uL High 150-400 [facility] Comment on above: Order Comment: Speci men Type: BLOOD SPECIMENOrdering Facility: [facility] Address: [address] [place] [address] Performed By: #### 5 7021-8, [id number] ####[facility] LABCLIA [id number] [place] [id number] [place] RBC (Bld) [#/Vol] 4.60 10*6/uL Normal 4.20-6.00 [facility] Comment on above: Order Comment: Speci men Type: BLOOD SPECIMENOrdering Facility: [facility] Address: [address] [place] [address] Performed By: #### 5 7021-8, [id number] ####[facility] LABCLIA [id number] [place] [address] [place] WBC (Bld) [#/Vol] 6.34 10*3/uL Normal 3.70-11.00 [facility] Comment on above: Order Comment: Speci men Type: BLOOD SPECIMENOrdering Facility: [facility] Address: [address] [place] [address] Performed By: #### 5 7021-8, [id number] ####[facility] LABCLIA [id number] [address] [place] CONFIRM BLOOD TYPEon 024 Rh Nom (Bld) Negative Normal [facility] Comment on above: Order Comment: Speci men Type: BLOOD SPECIMENOrdering Facility: [facility] Address: [address] [place] [address] Performed By: #### A NOAM AARON ####[facility] BANKCLIA [id number] [address] [place] CONSULT PROGon 07-06-2024 CONSULT PROG HNO ID: [id number] Author: ALLISON SAMANIEGO APRN.FIRE OBSERVER Service: Critical Care Author Type: Nurse Practitioner Type: Consult Progress Note Filed: 07/07/2024 01:00 Note Text: [facility] History and Physical Service Date: July 06, 2024 Service Time: 2318 Admission Date: 07/06/2024 Hospital Day: # 0 Day of Surgery CARE COORDINATION NOTE Indication for ICU Admission: Shock on vasopressors, s/p emergent ex-lap and left intubated Important/Relevant PMH/PSH: Crohn's disease, PING Preadmission Hospital Course: Faiza Lozano is a 44 year old male with long standing Crohn's disease s/p open ileocolic resection in 2007, with current regimen Stelara and 35mg PO Prednisone daily (ongoing Crohn's flare) who presented to the ED for evaluation of significant abdominal pain, inability to tolerate PO intake. Workup showing patient tachycardic and hypotensive with significant lactic acidosis (Lactate 16), thrombocytosis (540), and ANNE MARIE (Cr 1.68), CT A/P showed active Crohn's disease with stricture at RUQ ileocolic anastomosis with perforation at/near anastomosis with large multi-loculated abscess which communicates to large bilobed inferior R hepatic lobe liver abscess. He went urgently to OR for exploration with Dr. Ovalles. Chronological List of Surgeries and Major Events (Diagnosis): (Surgeries in bold characters) 07/06/2024: Ex-lap with hepatic abscess drainage, prior ileocolonic anastomosis resection and end ileostomy. Admitted to SICU post-op Major Events within past 24 hours To OR for emergent ex-lap with abscess evacuation A/P of Major Active Problems (excluding routine care and common problems): Neuro: Sedated on mechanical ventilation, PING - Pain control: PRN Fentanyl while intubated; scheduled Tylenol with PRN oxycodone once extubated - Sedation: Propofol - Delirium: Assess when extubated - Resume Prozac, olanzapine when able CV: Shock, c/f septic shock - Continuous cardiac monitoring - Continue norepi to keep SBP >65; add stress-dose steroids - Low threshold for central access - Echo in AM Pulm: Acute pulmonary insufficiency following non-thoracic surgery - Aggressive BPH/IS/OOB once extubated - On minimal vent settings GI: Crohn's disease s/p open ileocolic resection in 2007, c/b perforation and liver abscess s/p ex-lap with abscess drainage, ileocolonic resection and end ileostomy - Diet: NPO - Decompression: NGT to LIWS - Nausea regimen: PRN Zofran - Bowel regimen: Start when OK with surgery team Renal/FEN: ANNE MARIE vs CKD - SCr 1.65 on arrival to ED; unknown baseline - S/p total 7.2 L IVFB, 1 L albumin 5% and 2 units pRBC's since arrival to ED - Strict IANDOs - Daily weight - Monitor electrolytes and supplement as needed ID: Septic shock, likely 2/2 intraabdominal/liver abscess - RUQ/liver abscess evacuated during ex-lap - ABX: Zosyn Heme: ABLA - S/p 2 units pRBCs intra-op - Monitor HANDH - Transfuse for Hgb >7 - Repeat coags in AM Endo: Stress hyperglycemia - Maintain blood glucose - SSI #1 MSK: - OOB/ambulate as tolerated - PT/OT when able Lines/Drains: - PIV - Arterial line - End ileostomy - Hdz - HELEN x1 PPX: - DVT: Start when OK with surgery - Stress ulcers: PPI Daily Plan Summary and To Dos/Watch: - WTE - Wean pressors, trend LA - Empiric abx Barriers to transfer out of ICU: Vasopressors, mechanical ventilation Disposition: SICU Other Problems I reviewed and/or Managed During This Encounter: Principal Problem: Septic shock (HCC) (POA: Yes) Active Problems: Crohn's colitis, with intestinal obstruction (HCC) (POA: Yes) Liver abscess (POA: Yes) ANNE MARIE (acute kidney injury) (HCC) (POA: Yes) Resolved Problems: * No resolved hospital problems. * Problem Crohn's Colitis, With Intestinal Obstruction (Hcc) Liver Abscess Anne Marie (Acute Kidney Injury) (Hcc) Previous History No past medical history on file. No past surgical history on file. Social History Tobacco Use Smoking status: Never Smokeless tobacco: Never No family history on file. ALLERGIES Allergen Reactions Sulfamethoxazole-Tr* Anaphylaxis Current Outpatient Medications Medication Instructions FLUoxetine (PROZAC) 40 mg, ORAL OLANZapine (ZYPREXA) 5 mg, ORAL predniSONE (DELTASONE) 5 mg tablet Review of Systems (10) ROS was not able to be obtained due to the patient being intubated and sedated Refer to HPI and the remainder of the ROS was negative. OBJECTIVE Vitals: 07/07/24 0030 07/07/24 0035 07/07/24 0044 07/07/24 0045 Pulse: 120 (!) 123 120 118 BP: MAP Non Invasive (Mean Arterial Pressure): Arterial BP 1: 103/71 105/73 92/68 88/65 MAP Invasive (Mean Arterial Pressure) 1: 84 85 77 74 Resp: 16 20 21 22 SpO2: 95% 95% 95% 95% There were no vitals filed for this visit. Intake/Output Summary (Last 24 hours) at 07/07/2024 0059 (more content not included)... Normal [facility] CT ABD/PEL W IVCONon 07-06-[address] ABD/PEL W IVCON * * *Final Report* * * DATE OF EXAM: Jul 06 2024 6:58PM [facility] 0530 - CT ABD/PEL W IVCON / PROCEDURE REASON: Crohn's exacerbation * * * * Physician Interpretation * * * * EXAMINATION: CT ABDOMEN AND PELVIS WITH IV CONTRAST CLINICAL HISTORY: Crohn's exacerbation TECHNIQUE: CT of the abdomen and pelvis was performed using standard technique, scanning from just above the dome of the diaphragm to the symphysis pubis. MQ: CTAP_3 Contrast: IV: 100 ml of Omnipaque 350 : ml of CT Radiation dose: Integrated Dose-length product (DLP) for this visit = 445 mGy*cm. CT Dose Reduction Employed: Automated exposure control (AEC) COMPARISON: None RESULT: Liver: Approximately 14 x 7.6 cm bilobed abscess posterior inferior RIGHT hepatic lobe with gas-fluid level. Modest amount of perilesional edema. There is mild diffuse periportal edema. Biliary: Decompressed gallbladder with mild pericholecystic edema and wall thickening due to adjacent inflammatory change. No calcified gallstones or dilation of the gallbladder. Spleen: Calcified granuloma. No mass. No splenomegaly. Pancreas: No mass or duct dilation. Adrenals: No mass. Kidneys: Mild RIGHT perinephric edema likely passive from adjacent liver abscess and trace ascites. No renal mass, stones or hydronephrosis. GI tract: Status post ileocecectomy with RIGHT upper quadrant ileocecal anastomosis. Majority of colon is under distended and difficult to assess, however there is moderate perianastomotic inflammatory thickening. Upstream to the anastomosis there is at least 15 cm of neoterminal ileum demonstrating concentric wall thickening and dilation up to 3.4 cm; proximal to this there is a midline pelvic fluid distended small bowel loop measuring up to 3 cm. Findings are consistent with stricturing active Crohn's disease at the anastomosis. Posterolateral to the ileocolic anastomosis, there is a 3.6 x 5.0 cm multiloculated gas fluid/abscess (3:76), which is connected superiorly to the hepatic abscess via a 1.3 cm neck (4:51), and connected inferiorly with a gas fluid tubular collection/abscess which measures approximately 12.5 cm in length (4:37-51) by 15 4.9 x 7.1 cm in axial dimension. Trace inferior perihepatic fluid with extraluminal gas bubble (3:66). There are several collapsed and other thickened distal jejunal segment without upstream dilation (e.g. 3:88). The proximalmost small bowel and stomach are grossly unremarkable. Majority of the colon downstream to the ileocolic anastomosis is decompressed. Lymph nodes: Reactive small bowel mesenteric node and vascular congestion primarily in the RIGHT hemiabdomen. Mesentery/Peritoneum: Trace perihepatic and perinephric free fluid. Multiloculated collection in the peripheral RIGHT abdomen which appears to directly communicate with the a forementioned large hepatic abscess. Retroperitoneum: No mass or fluid collection. Vasculature: - Abdominal aorta and iliac arteries: No aneurysm. - Celiac and SMA: Patent without stenosis. - Portal venous system (SMV, splenic vein, portal vein and branches): Patent AV tiny filling defect within anterior RIGHT portal vein branch suggesting subocclusive subsegmental portal vein thrombus - Hepatic veins: Patent. Pelvis: No mass, ascites or fluid collection. Mild thickened bladder eccentric to underdistention. Bones/Soft Tissues: No destructive or traumatic bone lesion. Lower thorax: Bibasilar atelectasis. No consolidation or pleural effusion. Localizer images: No additional findings. IMPRESSION: Active Crohn's disease involving distal 15 cm of neoterminal ileum with stricture at the RIGHT upper quadrant ileocolic anastomosis. There is also perforation at/near the anastomosis with a large multiloculated abscess in the peripheral RIGHT abdomen which communicates with a large bilobed inferior RIGHT hepatic lobe liver abscess. Tiny subsegmental nonocclusive thrombus in the anterior branch RIGHT portal vein. COMMUNICATION: Communicated with Dr. Gonzalez, on 07/06/2024 8:02 PM via verbal communication. [employer]: [employer] Transcribe Date/Time: Jul 06 2024 7:38P Dictated by : ODIN SESAY MD This examination was interpreted and the report reviewed and electronically signed by: ODIN SESAY MD on Jul 06 2024 8:02PM EST [id number] Normal [facility] Comprehensive metabolic 2000 panelon 07-06-2024 Albumin [Mass/Vol] 3.5 g/dL Low 3.9-4.9 [facility] Comment on above: Order Comment: Speci men Type: BLOOD SPECIMENOrdering Facility: [facility] Address: [address] [place] [address] Performed By: #### 2 4323-8, 3040-3, ####[facility] LABORATORYCLIA [id number] [place] [id number] [place] ALP [Catalytic activity/Vol] 137 U/L High 38-113 [facility] Comment on above: Order Comment: Speci men Type: BLOOD SPECIMENOrdering Facility: [facility] Address: [address] [place] [address] Performed By: #### 2 4323-8, 0-3, ####RAD[facility] LABORATORYCLIA [id number] [place] [id number] [place] ALT [Catalytic activity/Vol] 45 U/L Normal 10-54 [facility] Comment on above: Order Comment: Speci men Type: BLOOD SPECIMENOrdering Facility: [facility] Address: [address] [place] [address] Performed By: #### 2 4323-8, 3, ####RADHA LABORATORYCLIA [id number] [place] [id number] [place] Anion gap [Moles/Vol] 30 mmol/L High 8-15 [facility] Comment on above: Order Comment: Speci men Type: BLOOD SPECIMENOrdering Facility: [facility] Address: [address] [place] [address] Performed By: #### 2 4323-8, 03, ####RADHA LABORATORYCLIA [id number] [place] [id number] [place] AST [Catalytic activity/Vol] 57 U/L High 14-40 [facility] Comment on above: Order Comment: Speci men Type: BLOOD SPECIMENOrdering Facility: [facility] Address: [address] [place] [address] Performed By: #### 2 4323-8, 3040-3, ####RADHA LABORATORYCLIA [id number] [place] [address] [place] Bilirubin [Mass/Vol] 1.2 mg/dL Normal 0.2-1.3 [facility] Comment on above: Order Comment: Speci men Type: BLOOD SPECIMENOrdering Facility: [facility] Address: [address] [place] [address] Performed By: #### 2 4323-8, 0-3, ####RADHA LABORATORYCLIA [id number] [place] [id number] [place] Calcium [Mass/Vol] 9.4 mg/dL Normal 8.5-10.2 [facility] Comment on above: Order Comment: Speci men Type: BLOOD SPECIMENOrdering Facility: [facility] Address: [address] [place] [address] Performed By: #### 2 4323-8, 3, ####RADHA LABORATORYCLIA [id number] [place] [address] [place] Chloride [Moles/Vol] 90 mmol/L Low 98-107 [facility] Comment on above: Order Comment: Speci men Type: BLOOD SPECIMENOrdering Facility: [facility] Address: [address] [place] [address] Performed By: #### 2 4323-8, 3, ####RADHA LABORATORYCLIA [id number] [place] [id number] [place] CO2 [Moles/Vol] 13 mmol/L Low 22-30 [facility] Comment on above: Order Comment: Speci men Type: BLOOD SPECIMENOrdering Facility: [facility] Address: [address] [place] [address] Performed By: #### 2 4323-8, 03, ####RADHA LABORATORYCLIA [id number] [place] [id number] [place] Creatinine [Mass/Vol] 1.65 mg/dL High 0.73-1.22 [facility] Comment on above: Order Comment: Speci men Type: BLOOD SPECIMENOrdering Facility: [facility] Address: [address] [place] [address] Performed By: #### 2 4323-8, 3040-3, ####[facility] LABORATORYCLIA [id number] [place] [id number] [place] Creatinine and Glomerular filtration rate.predicted panel (S/P/Bld) 52 mL/min/1.73m??? Low >=60 [facility] Comment on above: Order Comment: Amada wing Type: BLOOD SPECIMENOrdering Facility: [facility] Address: [address] [place] [address] Result Comment: Daria mated Glomerular Filtration Rate (eGFR) is calculated using the 2020 CKD-EPI creatinine equation. This equation utilizes serum creatinine, sex, and age as parameters. The creatinine assay has traceable calibration to isotope dilution-mass spectrometry. Refer to KDIGO guidelines for clinical interpretation. In patients with unstable renal function, e.g. those with acute kidney injury, the eGFR may not accurately reflect actual GFR. Performed By: #### 2 4323-8, 3040-3, ####[facility] LABORATORYCLIA [id number] [place] [id number] [place] Glucose [Mass/Vol] 126 mg/dL High 74-99 [facility] Comment on above: Order Comment: Amada wing Type: BLOOD SPECIMENOrdering Facility: [facility] Address: [address] [place] [address] Result Comment: The [place] Diabetes Association (ADA) provides guidance for cutoff values for fasting glucose and random glucose. The ADA defines fasting as no caloric intake for at least 8 hours. Fasting plasma glucose results between 100 to 125 mg/dL indicate increased risk for diabetes (prediabetes). Fasting plasma glucose results greater than or equal to 126 mg/dL meet the criteria for diagnosis of diabetes. In the absence of unequivocal hyperglycemia, results should be confirmed by repeat testing. In a patient with classic symptoms of hyperglycemia or hyperglycemic crisis, random plasma glucose results greater than or equal to 200 mg/dL meet the criteria for diagnosis of diabetes. Reference: Standards of Medical Care in Diabetes 2016, [place] Diabetes Association. Diabetes Care. 2016.39(Suppl 1). Performed By: #### 2 4323-8, 0-3, ####[facility] LABORATORYCLIA [id number] [place] [address] [place] Potassium [Moles/Vol] 4.0 mmol/L Normal 3.7-5.1 [facility] Comment on above: Order Comment: Speci men Type: BLOOD SPECIMENOrdering Facility: [facility] Address: [address] [place] [address] Performed By: #### 2 4323-8, 3, ####[facility] LABORATORYCLIA [id number] [place] [address] [place] Protein [Mass/Vol] 8.6 g/dL High 6.3-8.0 [facility] Comment on above: Order Comment: Speci men Type: BLOOD SPECIMENOrdering Facility: [facility] Address: [address] [place] [address] Performed By: #### 2 4323-8, 3, ####[facility] LABORATORYCLIA [id number] [place] [id number] [place] Sodium [Moles/Vol] 133 mmol/L Low 136-144 [facility] Comment on above: Order Comment: Speci men Type: BLOOD SPECIMENOrdering Facility: [facility] Address: [address] [place] [address] Performed By: #### 2 4323-8, 3, ####RADHA LABORATORYCLIA [id number] [place] [id number] [place] Urea nitrogen [Mass/Vol] 17 mg/dL Normal 9-24 [facility] Comment on above: Order Comment: Speci men Type: BLOOD SPECIMENOrdering Facility: [facility] Address: [address] [place] [address] Performed By: #### 2 4323-8, 3, ####[facility] LABORATORYCLIA [id number] [place] [address] [place] ED NOTEon 12-05-2024 ED NOTE HNO ID: [id number] Author: TROY WOODWARD, NORBERTO Service: ? Author Type: Registered Nurse Type: ED Notes Filed: 07/06/2024 16:23 Note Text: Bed: 54-ED Expected date: Expected time: Means of arrival: Comments: triage Normal [facility] ED PROV NOTEon 07-06-2024 ED PROV NOTE HNO ID: [id number] Author: SHAWNEE GONZALEZ MD Service: Emergency Medicine Author Type: Physician Type: ED Provider Notes Filed: 07/06/2024 23:27 Note Text: ED Provider Note Patient Name: Faiza Lozano : 1980 SERVICE DATE: 07/06/24 History Patient presents with: Abdominal Pain: Pt reports chrons flare up that started about a week. R sided abdominal pain. + diarrhea for about a weak. Sent in by doctor for a temporary ostomy bag. + chills. + SOB in triage. Appears pale in triage as well. Patient is a 44-year-old male with a past medical history of Crohn's on Stelara and 35 mg prednisone daily who presents with abdominal pain and concern for Crohn's flare. Patient was evaluated by his colorectal surgeon Dr. Ovalles earlier today and sent to the ED for further management and imaging. Patient endorses right upper and lower abdominal pain described as knifelike, worse with movement, radiating from his front to his back. He states that the steroids helped briefly but the pain returns after an hour or 2. He denies fever but endorses chills; denies vomiting but endorses nausea. He has 1-2 loose bowel movements per day; denies hematochezia or melena. Patient presents tachycardic, pale, and borderline hypotensive. HPI No past medical history on file. No past surgical history on file. No family history on file. Social History Tobacco Use Smoking status: Never Smokeless tobacco: Never Substance and Sexual Activity Alcohol use: Not on file Drug use: Not on file Sexual activity: Not on file ALLERGIES Allergen Reactions Sulfamethoxazole-Tr* Anaphylaxis Review of Systems Constitutional: Positive for chills. Negative for activity change, diaphoresis, fatigue and fever. HENT: Negative for ear pain and sore throat. Respiratory: Negative for cough, chest tightness, shortness of breath and wheezing. Cardiovascular: Negative for chest pain, palpitations and leg swelling. Gastrointestinal: Positive for abdominal pain. Negative for abdominal distention, blood in stool, constipation, diarrhea, nausea and vomiting. Endocrine: Negative for polydipsia, polyphagia and polyuria. Genitourinary: Negative for decreased urine volume, difficulty urinating, dysuria, flank pain, frequency, hematuria and urgency. Musculoskeletal: Negative for arthralgias, back pain, myalgias and neck pain. Skin: Negative for pallor, rash and wound. Neurological: Negative for dizziness, tremors, seizures, syncope, weakness, light-headedness, numbness and headaches. Hematological: Negative for adenopathy. Does not bruise/bleed easily. Psychiatric/Behaviora l: Negative for agitation and confusion. All other systems reviewed and are negative. Physical Exam Vitals [07/06/24 1621] BP Pulse Temp Temp src Resp SpO2 Weight Height (!) 96/47 (!) 145 36.7 ?C (98.1 ?F) Oral 18 98 % -- -- Physical Exam Vitals and nursing note reviewed. Constitutional: General: He is not in acute distress. Appearance: He is well-developed. He is ill-appearing. HENT: Head: Normocephalic and atraumatic. Right Ear: External ear normal. Left Ear: External ear normal. Eyes: General: Lids are normal. No scleral icterus. Conjunctiva/sclera: Conjunctivae normal. Pupils: Pupils are equal, round, and reactive to light. Neck: Vascular: No carotid bruit or JVD. Cardiovascular: Rate and Rhythm: Regular rhythm. Tachycardia present. Pulses: Popliteal pulses are 2+ on the right side and 2+ on the left side. Dorsalis pedis pulses are 2+ on the right side and 2+ on the left side. Posterior tibial pulses are 2+ on the right side and 2+ on the left side. Heart sounds: S1 normal and S2 normal. No murmur heard. No friction rub. No S3 or S4 sounds. Pulmonary: Effort: Pulmonary effort is normal. No accessory muscle usage or respiratory distress. Breath sounds: No wheezing, rhonchi or rales. Abdominal: General: Bowel sounds are normal. There is no distension. Palpations: Abdomen is soft. Tenderness: There is abdominal tenderness in the right upper quadrant and right lower quadrant. There is no guarding or rebound. Musculoskeletal: General: No deformity. Normal range of motion. Cervical back: Full passive range of motion without pain, normal range of motion and neck supple. Skin: General: Skin is warm and dry. Findings: No abrasion, erythema or rash. Nails: There is no clubbing. Neurological: Mental Status: He is alert and oriented to person, place, and time. GCS: GCS eye subscore is 4. GCS verbal subscore is 5. GCS motor subscore is 6. Sensory: No sensory deficit. Psychiatric: Behavior: Behavior is not agitated or aggressive. Behavior is cooperative. Judgment: Judgment normal. Diagnostic Testing ED Labs Ordered and Reviewed - No data to display Procedures ED Course / Clinical Impression ED Course as of 07/06/24 232 Shawnee Gonzalez's Documentation Raven Jul 06 (more content not included)... Normal [facility] ED Triage Noteon 07-06-2024 ED Triage Note HNO ID: [id number] Author: FAIZA OCONNELL MD Service: ? Author Type: Physician Type: ED Triage Notes Filed: 07/06/2024 16:22 Note Text: ED TRIAGE PROVIDER NOTE Patient Name: Faiza Lozano Service Date: 07/06/24 BRIEF HPI: This is a 44 year old male who presents to the ED with: right abd pain. Has a hx of Crohns and saw his cororectal surgeon today who sent him here for labs, CT and probable admission for surgery. BRIEF EXAM: NAD Awake and Alert Non labored breathing No focal neurological deficits INITIAL WORKUP AND DECISION MAKING: Orders Placed This Encounter CT ABD/PEL W IVCON CBC with Differential CMP LIPASE Magnesium level NaCl 0.9% 1,000 mL iv bolus iv contrast (radiology procedure) SIGNATURE: Faiza Oconnell MD Normal [facility] GRAM POSITIVE ORGANISM ID BY MICROARRAY (Wibki)on 07-06-2024 GRAM POSITIVE ORGANISM ID BY MICROARRAY (Wibki) BCID INTERPRETATION: Streptococcus anginosus group detected by microarray. Negative for Staphylococcus spp. and Enterococcus spp. by microarray. Abnormal [facility] Comment on above: Performed By: #### 6 00-7, IDBCGP ####[facility] LABCLIA [id number] [place] [address] [place] HISTORY PHYSICALon 12-05-202 4 HISTORY PHYSICAL HNO ID: [id number] Author: SHIVANI COTA MD Service: Colorectal Author Type: Resident Type: H&P Filed: 07/06/2024 19:46 Note Text: Attestation signed by Amanda Ovalles MD at 07/06/2024 11:29 PM [facility] STAFF PHYSICIAN NOTE OF PERSONAL INVOLVEMENT IN CARE I have reviewed the history and physical exam obtained and documented by the resident and I personally participated in the shankar components. I have confirmed and edited as necessary, the PFSH and ROS obtained by others. I have discussed the case and management of the patient's care. The following comments revise or confirm relevant shankar components of the note. Medical Decision Making: Assessment AND Diagnosis: 44 year old man with h/o of crohns s/p open ileocolic resection in 2007 presenting recurrence of his anastomosis with subsequent nicol-TI intussusception and 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 Patient sent to ED from clinic due to poor clinical state and work up in the ED significant for tachycardia, hypotension, Lact [address] showing contained perforation of ileocolic anastomosis with associated abscess eroding into liver. Plan for emergent surgical exploration. Ex lap, resection of ileocolic anastomois, stoma creation. Aggresive resuscitation/abx Data Reviewed: Tests AND Documents Reviewed/ordered: Review of prior notes from clinic note Review of Pathology Review of Imaging: CT Abdomen, CT Pelvis Review of Labs: CBC, BMP, LFT, lact Review of Procedures / Tests: Colonoscopy I have independently interpreted: CT Abdomen, CT Pelvis Treatment plan: OR emergently Risk of morbidity, mortality and/or complications of treatment plan: high Amanda Ovalles MD Date of Service: July 06, 2024 Time Spent: 75 minutes, >50% of the time was spent in counseling and coordination of care as outlined in the plan above. [facility] PATIENT NAME: Faiza Lozano HOSPITAL SERVICE: Colorectal Surgery PRIMARY CARE PHYSICIAN: Verena Rodriguez, FIRE OBSERVER, FIRE OBSERVER HPI: 44 year old male with history of Crohn's disease s/p open ileocolic resction in 2007 who presents with significant abdominal pain. He was seen today in clinic by Dr. Ovalles and sent to the ED for IV fluids and CT scan. From Dr. Ovalles's note today: the patient states that he was fine until earlier this year when he started developing issues with p.o. intake and abdominal pain. He reported months of crampy abdominal pain with p.o. intake followed by nausea vomiting with resolution of his symptoms. This has continued to worsen and over the last few months he has been admitted to the hospital once for bowel obstruction due to inflammation at this ileum. At the time he was managed with steroids and subsequently discharged on a long steroid taper. However, his symptoms are now progressing- reports significant sharp pain in the right abdomen and back that worsens with eating and movement. Not able to tolerate any solid food anymore. He also passed out due to the pain on Wednesday. He has lost over 13 pounds within 2 weeks because of this pain. He drank 1 Ensure last night which caused significant gas pain. He is still drinking Gatorade and water. He is currently on Stelara and 35 mg of prednisone for his Crohn's flare up. He is taking no pain medications currently. He reports 1 liquid BM daily without blood. Of note, his last Crohn's workup includes a colonoscopy in January [address] Sellers, which showed ulcerated stricture at this anastomosis that could not be transversed with a colonoscopy as well as a bulging lesion at the anastomosis concerning for invagination of the small bowel. Biopsy of the small bowel showed active chronic inflammation and biopsy of the anastomosis also showed active chronic inflammation with evidence of ulceration. CTE prior to the colonoscopy also showed shown Abnormal wall thickening and enhancement involving the distal ileum of approximately 8 to 9 cm in length to the level of the patient's anastomosis. Active Crohn's disease is suspected. No prestenotic dilation is seen to suggest significant stricture/obstruction . He was started on stelara after this workup. He's been on oral steroids for the past 5 weeks, persistent pain, intermittent nausea with reflux symptoms Workup in the ED showing patient afebrile, however tachycardic (110-140s), hypotensive (SBP 80s), without leukocytosis (WBC 6), with thrombocytosis (540), significant lactic acidosis (HCO3 13, Lactate 16), ANNE MARIE with Cr 1.65. CT AP was obtained, not showing pneumoperitoneum, however significant right colonic dilation with bowel wall hyperemia. PAST MEDICAL HISTORY: No past medical history on file. PAST SURGICAL HISTORY: No past surgical history (more content not included)... Normal [facility] Lipase SerPl-cCncon 07-06-20 24 Lipase [Catalytic activity/Vol] 27 U/L Normal 16-61 [facility] Comment on above: Order Comment: Speci men Type: BLOOD SPECIMENOrdering Facility: [facility] Address: [address] [place] [address] Performed By: #### 2 4323-8, 3039-3, ####[facility]ORATORYCLIA [id number] [place] [address] [place] [facility] Magnesium SerPl-mCncon 07-06 Magnesium [Mass/Vol] 1.9 mg/dL Normal 1.7-2.3 [facility] Comment on above: Order Comment: Speci men Type: BLOOD SPECIMENOrdering Facility: [facility] Address: [address] [place] [address] Performed By: #### 2 4323-8, 0-3, ####[facility] LABORATORYCLIA [id number] [place] [id number] [place] OPERATIVE NOon 07-06-2024 OPERATIVE NO HNO ID: [id number] Author: AMANDA OVALLES MD Service: Colorectal Author Type: Physician Type: Operative Report Filed: 07/08/2024 12:16 Note Text: COLON AND RECTAL SURGERY OPERATIVE REPORT PATIENT NAME: Faiza Lozano ADMISSION DATE: 07/06/2024 LOG ID: [id number] SURGERY/PROCEDURE DATE: 07/06/2024 INCISION/PROCEDURE START TIME: 8:53 PM INCISION CLOSE/PROCEDURE END TIME: 11:11 PM AGE: [age] year old SEX: male SURGEON(S)/PROCEDURAL IST(S) AND QUALITY ASSURANCE MONITOR CHASSIS(S): Surgeons and Role: * Amanda Ovalles MD - Primary * Silas Best MD - Resident - Assisting * Shivani Cota MD - Resident - Assisting No Additional Staff ANESTHESIA: General PREOPERATIVE DIAGNOSIS (ES): Crohn's disease with obstruction and intestinal perforation Liver abscess Intra-abdominal abscess POSTOPERATIVE DIAGNOSIS (ES): Same NAME OF OPERATION: 1) Exploratory Laparotomy 2) Resection of ileocolic anastomosis 3) Washout and drainage of liver/intra-abdominal abscess 4) Creation of end ileostomy INDICATIONS FOR PROCEDURE: 44 year old man with h/o of crohns s/p open ileocolic resection in 2007 presenting recurrence of his anastomosis with subsequent nicol-TI intussusception and 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 Patient was sent to ED from clinic due to poor clinical state and work up in the ED significant for tachycardia, hypotension, Lact [address] showing contained perforation of ileocolic anastomosis with associated subhepatic abscess. R/B/A discussed with patient and informed consent obtained. OPERATIVE FINDINGS: Contained perforation of ileocolic anastomosis with associated large abscess, which eroded into the liver bed. ~1L of purulent fluid drained. Ileocolic anastomosis resected and no other area of crohn's disease of small bowel. This case was notable for an infection present at the time of surgery as indicated by the presence of abscess and pus/purulence. This was identified in the organ/intraperitoneal space. DESCRIPTION OF PROCEDURE: The patient was brought to the operating room and placed under general anesthesia without complication. Hdz was inserted. The abdomen was prepped and draped in normal sterile fashion. The patient received appropriate preop antibiotics and DVT prophylaxis. A surgical time-out was performed. The abdomen was entered through his prior midline incision. Omentum was adherent to anterior abdominal wall, which was mobilized. An [id number] Elkin wound retractor was inserted and exposure was optimized using Omni retractor. Exploration of the abdomen confirmed an inflammatory tissue in the RLQ and associated mass extending into the liver, which corresponded with the large abscess seen on preoperative CT. The abscess cavity was entered and ~1L of pus was drained from the cavity. The cavity had partially eroding into the liver, with wall of the liver forming part of the cavity wall. I then turned my attention to the identifying the ileocolic anastomosis. This was chronically inflamed and dilated. This was mobilized, making sure to protect the right ureter and the duodenum. This was a very difficult mobilized given the chronic inflammation and tight adherence to the surrounding structures. In addition, the anastomosis was part of the abscess cavity wall, and required mobilized off the liver. Once the anastomosis was freed, a proximal and distal transections were chosen, corresponding the the distal ileum and mid transverse colon. Mesenteric windows were made, and the intervening mesentery was taken with ligasure. The mesentery was quite thickened/disease with bleeding, the edges required reinforcement with U shaped sutures with 2'0 vicryl. The specimenwas passed off the field as ileocolic anastomosis. The rest of the smallbowel was ran and there was no other areas of crohn's disease. The distal bowel was more dilated. The liver bed was inspected and hemostasis obtained. The inferior edge of the right lobe of the liver was eroded by the abscess cavity. A 19fr wayne drain was placed in the liver bed. The abdomen was copiously irrigated. The colonic stump was oversewn with lembert with 3'0 PDS and tagged with 2'0 prolene. An ileostomy site was created in the right upper quadrant, at a chosen site, using the muscle splitting technique. The stapled end of the ileum was grasped and delivered out through the ileostomy trephine, while maintaining the correct orientation (mesentery was cephalad). The midline fascia was closed with a running 0' PDS. The wounds were irrigated and the skin was closed with gerry. The ileostomy was matured in a standard emily fashion using 3-0 Vicryl, to achieve a 2 cm eversion. Patient was taken to Surgical ICU in critical but stable condition. ESTIMATED BLOOD LOSS: 500cc SPECIMENS: ileocolic anastomosis DRAINS: 19 fr wayne drain COMPLICATIONS: None INTRAOPERATIVE FLUIDS: See anesthesia re (more content not included)... Normal [facility] PT panel Coag (PPP)on 2023 INR Coag (PPP) [Relative time] 1.3 {INR} Normal 0.9-1.3 [facility] Comment on above: Order Comment: Amada wing Type: BLOOD SPECIMENOrdering Facility: [facility] Address: [address] [place] [address] Result Comment: Mariela min K Antagonist (VKA) Therapeutic Range: INR 2 to 3 (Target INR of 2.5) Note: For patients treated with VKA drugs, such as warfarin, the [employer] [employer] 2012 Guideline recommends a therapeutic INR range of 2 to 3 (target INR of 2.5). This recommendation includes high-risk patients with antiphospholipid syndrome with previous arterial or venous thromboembolism, current-generation mechanical or bioprosthetic aortic heart valve replacement. Note: Patients with mechanical aortic valve replacement and additional risk factors for thromboembolic events (atrial fibrillation, previous thromboembolism, LV dysfunction, hypercoagulable conditions) or an older generation mechanical AVR (i.e., ball in-Cage) or any mechanical MVR should have a INR therapeutic range of 2.5 to 3.5 (target INR of 3). Tatum WHITESIDE, et al. Chest 2012, 141:7S-47S Gerald RA, et al. [facility] 2017, 70: 252-289 Performed By: #### 3 4528-0, 52674-2 ####[facility] LABORATORYCLIA [id number] [place] [address] [place] PT Coag (PPP) [Time] 14.0 s High 9.7-13.0 [facility] Comment on above: Order Comment: Amada wing Type: BLOOD SPECIMENOrdering Facility: [facility] Address: [address] [place] [address] Performed By: #### 3 4528-0, 93400-8 ####[facility] LABORATORYCLIA [id number] [place] [id number] [place] RBC MORPHOLOGYon 07-06-2024 Ovalocytes LM Ql (Bld) Few Normal Fa [facility] Comment on above: Order Comment: Amada wing Type: BLOOD SPECIMENOrdering Facility: [facility] Address: [address] [place] [address] Performed By: #### 5 7021-8, [id number] ####[facility] LABCLIA [id number] [place] [address] [place] Platelet clump LM Ql (Bld) Present Normal [facility] Comment on above: Order Comment: Speci men Type: BLOOD SPECIMENOrdering Facility: [facility] Address: [address] [place] [address] Performed By: #### 5 7021-8, [id number] ####[facility] LABCLIA [id number] [place] [address] [place] Platelets Estimate (Bld) [#/Vol] Increased Normal [facility] Comment on above: Order Comment: Speci men Type: BLOOD SPECIMENOrdering Facility: [facility] Address: [address] [place] [address] Performed By: #### 5 7021-8, [id number] ####[facility] LABCLIA [id number] [place] [address] [place] RBC morphology finding Nom (Bld) Reviewed: see results of individual morphologies Normal [facility] Comment on above: Order Comment: Speci men Type: BLOOD SPECIMENOrdering Facility: [facility] Address: [address] [place] [address] Performed By: #### 5 7021-8, [id number] ####[facility] LABCLIA [id number] [place] [address] [place] WBC Left Shift Ql (Bld) Present Normal [facility] Comment on above: Order Comment: Speci men Type: BLOOD SPECIMENOrdering Facility: [facility] Address: [address] [place] [address] Performed By: #### 5 7021-8, [id number] ####[facility] LABCLIA [id number] [place] [address] [place] SEPSIS LACTATEon 07-06-2024 Lactate [Moles/Vol] 16.0 mmol/L High 0.0-2.0 [facility] Comment on above: Order Comment: Speci men Type: BLOOD SPECIMENOrdering Facility: [facility] Address: [address] [place] [address] Performed By: #### S LACT ####[facility]ORATORYCLIA [id number] [address] TYPE + SCREENon 07-06-2024 ABO A Normal [facility] Comment on above: Order Comment: Speci men Type: BLOOD SPECIMENOrdering Facility: [facility] Address: [address] [place] [address] Performed By: #### T SCR ####[facility] BANKCLIA [id number] [place] [address] [place] [facility] Rh Nom (Bld) Negative [facility] Comment on above: Order Comment: Speci men Type: BLOOD SPECIMENOrdering Facility: [facility] Address: [address] [place] [address] Performed By: #### T SCR ####[facility] BANKCLIA [id number] [address] TYPE AND SCREEN EXPIRATION 07/09/2024 23:59 Normal [facility] Comment on above: Order Comment: Speci men Type: BLOOD SPECIMENOrdering Facility: [facility] Address: [address] [place] [address] Performed By: #### T SCR ####[facility] BANKCLIA [id number] [place] [address] [place] aPTT PPPon 07-06-2024 aPTT Coag (PPP) [Time] 25.9 s Normal 23.0-32.4 [facility] Comment on above: Order Comment: Speci men Type: BLOOD SPECIMENOrdering Facility: [facility] Address: [address] [place] [address] Performed By: #### 3 4528-0, 44454-5 ####[facility] LABORATORYCLIA [id number] [address] OF [facility] ALL CBC WITH AUTO DIFFon BASOPHILS ABSOLUTE AUTO 0 [facility] Basophils/100 WBC (Bld) 0.1 % Low 0.2 - 2.0 % [facility] Eosinophils/100 WBC (Bld) 0 % Low 0.9 - 7.0 % [facility] Erythrocyte distribution width (RBC) [Ratio] 12.9 % 11.0 - 15.0 % [facility] Hematocrit (Bld) [Volume fraction] 39.7 % Low 42.0 - 54.0 % [facility] Hemoglobin (Bld) [Mass/Vol] 12.9 g/dL Low 14.0 - 18.0 g/dL [facility] IMMATURE GRANULOCYTES ABS AUTO 0.1 High [facility] Immature granulocytes/100 WBC (Bld) 0.6 % High 0.0 - 0.5 % [facility] Interpretation and review of laboratory results Abnormal [facility] LYMPHOCYTES ABSOLUTE AUTO 0.7 Low [facility] Lymphocytes/100 WBC (Bld) 4.4 % Low 20.5 - 60.0 % [facility] MCH (RBC) [Entitic mass] 29.3 pg 25.9 - 34.0 pg [facility] MCHC (RBC) [Mass/Vol] 32.5 g/dL 29.9 - 35.2 g/dL [facility] MCV (RBC) [Entitic vol] 90.2 fL 80.0 - 94.0 fL [facility] MONOCYTES ABSOLUTE AUTO 0.4 [facility] Monocytes/100 WBC (Bld) 2.8 % 1.7 - 12.0 % [facility] NEUTROPHILS ABSOLUTE AUTO 14.5 High [facility] Neutrophils/100 WBC (Bld) 92.1 % High 43.0 - 75.0 % [facility] Platelet mean volume (Bld) [Entitic vol] 8.4 fL Low 9.5 - 13.5 fL [facility] TBH EO # 0 [facility]H PLT 556 High [facility] RBC 4.4 Low [facility] WBC 15.8 High [facility] Amphetamine Screen Ql (U)Ord ered By: Sonja Sellers on 01-11-2024 Amphetamines Ql (U) Negative Negative [facility] Barbiturates [Presence] in U rine by Screen methodOrdered By: Sonja Sellers on 01-11-2024 Barbiturates Screen Ql (U) Negative Negative [facility] Benzodiazepines Screen Ql (U )Ordered By: Sonja Sellers on 01-11-2024 Benzodiazepines Ql (U) Negative Negative [facility] Benzoylecgonine [Presence] i n Urine by Screen methodOrdered By: Sonja Sellers on 01-11-2024 Benzoylecgonine Screen Ql (U) Negative Negative [facility] Cannabinoids [Presence] in U rine by Screen methodOrdered By: Sonja Sellers on 01-11-2024 Cannabinoids Screen Ql (U) Positive Negative [facility] Comment on above: These are unconfirme d results and should not be used for legal purposes. Drug Cut-Off Concentration: AMPH 1000 ng/mL WILIAN 200 ng/mL CARSON 200 ng/mL COCM 300 ng/mL OP 300 ng/mL PCP 25 ng/mL THC 20 ng/mL Drug Screen,Urineon 01-11-20 24 Amphetamine Screen,Urine Negative Normal Negative [facility] Comment on above: Performed By: #### U RDS #### [address] Barbiturate Screen,Urine Negative Normal Negative [facility] Comment on above: Performed By: #### U RDS #### [place] [address] [place] Benzodiazepines Screen,Urine Negative Normal Negative [facility] Comment on above: Performed By: #### U RDS #### [address] Cannabinoid Screen,Urine Positive High Negative [facility] Comment on above: Result Comment: Thes e are unconfirmed results and should not be used for legal purposes. Drug Cut-Off Concentration: AMPH 1000 ng/mL WILIAN 200 ng/mL CARSON 200 ng/mL COCM 300 ng/mL OP 300 ng/mL PCP 25 ng/mL THC 20 ng/mL PERFORMED BY: [place] [address] PATHOLOGIST MEDICAL TECHNOLOGIST CLINICAL GRIS CONLEY M.D. Performed By: #### U RDS #### [place] [address] [place] Cocaine Screen,Urine Negative Normal Negative [facility] Comment on above: Performed By: #### U RDS #### [facility] [address] Opiate Screen,Urine Negative Normal Negative [facility] Comment on above: Performed By: #### U RDS #### [facility] [address] Phencyclidine Screen,Urine Negative Normal Negative [facility] Comment on above: Performed By: #### U RDS #### [facility] [address] Jacinto 01-11-2024 L Specimen: [id number] Received: 01/11/24 Status: NITHYA Iverson Num: [id number] Spec Type: Surgical Subm Dr: Sonja Sellers DO Tissues: A Small Intestine - Biopsy/Polyp (SMALL BOWEL STRICTURE) B Colon Biopsy (ANASTOMOSIS LESION) C Colon Biopsy (RANDOM COLON BX) Procedures: HE/6, Gross/Micro L4/3 Age/ Patient Sex Location Account Attending Physician Faiza Lozano 43/M [id number] Sonja Sellers DO SPEC NUM: [id number] RECD: 01/11/24 STATUS: NITHYA IVERSON NUM: [id number] ELVIN: 01/11/24 DR: Sonja Sellers DO ENTERED: 01/11/[address] [facility] [address]: SPEC TYPE: Surgical DEPT: S ORDERED: [...] biopsies are multiple jama mucosal tissue fragments -------- Specimen: [id number] Received: 01/11/24 Status: NITHYA Iverson Num: [id number] Spec Type: Surgical Subm Dr: Sonja Sellers DO Tissues: A Small Intestine - Biopsy/Polyp (SMALL BOWEL STRICTURE) B Colon Biopsy (ANASTOMOSIS LESION) C Colon Biopsy (RANDOM COLON BX) Procedures: HE/6, Gross/Micro L4/3 -------- Patient: Faiza Lozano [id number] (Continued) -------- Specimen: [id number] Received: 01/11/24 (Continued) Gross Description (Continued) Signed (signature on file) Leigh Ann Casas MD 01/12/24 1459 -------- Specimen: [id number] Received: 01/11/24 Status: NITHYA Iverson Num: [id number] Spec Type: Surgical Subm Dr: Sonja Sellers DO Tissues: A Small Intestine - Biopsy/Polyp (SMALL BOWEL STRICTURE) B Colon Biopsy (ANASTOMOSIS LESION) C Colon Biopsy (RANDOM COLON BX) Procedures: HE/6, Gross/Micro L4/3 -------- Patient: Faiza Lozano [id number] (Continued) -------- Specimen: [id number] Received: 01/11/24 (Continued) Gross Description (Continued) measuring in aggregate 1.8 x 0.4 x 0.1 cm, entirely submitted in C1. CPT Codes 97210f7 -------- -------- Specimen: [id number] Received: 01/11/24 Status: NITHYA Iverson Num: [id number] Spec Type: Surgical Subm Dr: Sonja Sellers DO Tissues: A Small Intestine - Biopsy/Polyp (SMALL BOWEL STRICTURE) B Colon Biopsy (ANASTOMOSIS LESION) C Colon Biopsy (RANDOM COLON BX) Procedures: HE/6, Gross/Micro L4/3 -------- Patient: Faiza Lozano [id number] (Continued) -------- Signed (signature on file) Leigh Ann Casas MD 01/12/24 3759 Normal [facility] Opiates [Presence] in Urine by Screen methodOrdered By: Sonja Sellers on 01-11-2024 Opiates Screen Ql (U) Negative Negative [facility] Phencyclidine Screen Ql (U)O rdered By: Sonja Sellers on 01-11-2024 Phencyclidine Ql (U) Negative Negative [facility] CT enterographyon 01-10-2024 CT enterography [facility] [place] [address] CT Scan Report Signed Patient: Faiza Lozano MR#: [id number] : 1980 Acct:[id number] Age/Sex: 43 / M ADM Date: 01/10/24 Loc: CT Room: Type: [facility] Attending Dr: Sonja Sellers DO [...] prestenotic dilatation is present to suggest significant stricture/obstruction . There is associated mild haziness involving the mesentery with engorgement of the vascular arcades. There also appears to be invagination of the small bowel into the colon at the level of the ileocolic anastomosis. No additional areas of abnormal enhancement or wall thickening is seen involving the small bowel. Remaining colon appears grossly unremarkable.[ Pelvis:[Urinary bladder is grossly unremarkable. Prostatomegaly.] Peritoneum/Retroperit oneum:No free air, free fluid or lymphadenopathy.[ Abd wall/Bones:Abdominal wall demonstrate no acute findings. Osseous structures demonstrate degenerative change.[ CT/CT enterography IMPRESSION: 1. Abnormal wall thickening and enhancement involving the distal ileum of approximately 8 to 9 cm in length to the level of the patient's ileocolic anastomosis. Active Crohn's disease is suspected. No prestenotic dilatation is seen to suggest significant stricture/obstruction . Impression dictated by: Porfirio Ricks Jr., D.O.01/10/2024 2:57 PM Dictation Location: [place] [address] Transcribed By: [facility] 01/10/24 145 Dictated By: Porfirio Ricks Jr, DO 01/10/24 145 Signed By: 01/10/24 145 Normal [facility] Vital Signs Date Time Vital Sign Value Performing Clinician Facility 07-07-2024 05:53-0500 SaO2% (BldA) [Mass fraction] 97 % [facility] Comment on above: Order Comment: Specimen Type: ARTERIAL B LOOD SPECIMENOrdering Facility: [facility] Address: [address] [place] [address] Performed By: #### A LLBG ####[facility] LABORATORYIA [id number] [address] 07-07-2024 00:15-0500 SaO2% (BldA) [Mass fraction] 96 % [facility] Comment on above: Order Comment: Specimen Type: ARTERIAL B LOOD SPECIMENOrdering Facility: [facility] Address: [address] [place] [address] Performed By: #### A LLBG ####[facility] [id number] [place] [id number] [facility] 07-06-2024 22:43-0500 SaO2% (BldA) [Mass fraction] 97 % [facility] Comment on above: Order Comment: Specimen Type: ARTERIAL B LOOD SPECIMENOrdering Facility: [facility] Address: [address] [place] [address] Performed By: #### A LLBG ####[facility] LABORATORYCLIA [id number] [place] [id number] [facility] 07-06-2024 21:17-0500 SaO2% (BldA) [Mass fraction] 96 % [facility] Comment on above: Order Comment: Specimen Type: ARTERIAL B LOOD SPECIMENOrdering Facility: [facility] Address: [address] [place] [id number] Performed By: #### A [facility] ####[facility] [id number] [address] [place] 07-06-2024 15:02-0500 Body temperature 97 [degF] Amanda Ovalles MD Work Phone: [facility] 07-06-2024 15:02-0500 Diastolic blood pressure 65 mm[Hg] Amanda Ovalles MD Work Phone: [facility] 07-06-2024 15:02-0500 Heart rate 116 /min Amanda Ovalles MD Work Phone: [facility] 07-06-2024 15:02-0500 SaO2% (BldA) [Mass fraction] 99 % Amanda Ovalles MD Work Phone: [facility] 07-06-2024 15:02-0500 Systolic blood pressure 107 mm[Hg] Amanda Ovalles MD Work Phone: [facility] 07-03-2024 18:56-0500 Body height 175.3 cm Verena Rodriguez [employer] Work Phone: [facility] 07-03-2024 18:56-0500 Body mass index (BMI) [Ratio] 22.8 kg/m2 Verena Rodriguez [employer] Work Phone: [facility] 07-03-2024 18:56-0500 Body temperature 98.4 [degF] Verena Rodriguez [employer] Work Phone: [facility] 07-03-2024 18:56-0500 Body weight 70.03 kg Verena Rodriguez [employer] Work Phone: [facility] 07-03-2024 18:56-0500 Diastolic blood pressure 70 mm[Hg] Verena Rodriguez [employer] Work Phone: [facility] 12-02-2024 18:56-0500 Heart rate 113 /min Verenasathya Singhz [employer] Work Phone: [facility] 07-03-2024 18:56-0500 Respiratory rate 20 /min Verenasathya Singhz [employer] Work Phone: [facility] 07-03-2024 18:56-0500 SaO2% (BldA) [Mass fraction] 97 % Verenasathya Singhz [employer] Work Phone: [facility] 07-03-2024 18:56-0500 Systolic blood pressure 98 mm[Hg] Verena Kannanholz [employer] Work Phone: [facility] 06-19-2024 16:38-0500 Body height 175.3 cm Verenasathya Brunnerholz [employer] Work Phone: [facility] 06-19-2024 16:38-0500 Body mass index (BMI) [Ratio] 24.69 kg/m2 Verenasathya Brunnerholz [employer] Work Phone: [facility] 06-19-2024 16:38-0500 Body temperature 97.81 [degF] Verena Kannanholz [employer] Work Phone: [facility] 06-19-2024 16:38-0500 Body weight 75.84 kg Verenasathya Brunnerholz [employer] Work Phone: [facility] 06-19-2024 16:38-0500 Diastolic blood pressure 80 mm[Hg] Verenasathya Brunnerholz [employer] Work Phone: [facility] 06-19-2024 16:38-0500 Heart rate 79 /min Verena Kannanholz [employer] Work Phone: [facility] 06-19-2024 16:38-0500 Respiratory rate 18 /min Verena Kannanholz [employer] Work Phone: [facility] 06-19-2024 16:38-0500 SaO2% (BldA) [Mass fraction] 99 % Verena Kannanholz [employer] Work Phone: [facility] 06-19-2024 16:38-0500 Systolic blood pressure 120 mm[Hg] Verena Kannanholz [employer] Work Phone: [facility] 05-31-2024 17:00-0400 Body height 175.3 cm Verena Radhahholz [employer] Work Phone: [facility] 05-31-2024 17:00-0400 Body mass index (BMI) [Ratio] 24.34 kg/m2 Verena Radhahholz [employer] Work Phone: [facility] 05-31-2024 17:00-0400 Body temperature 97.81 [degF] Verena Radhahholz [employer] Work Phone: [facility] 05-31-2024 17:00-0400 Body weight 74.75 kg Verena Radhahholz [employer] Work Phone: [facility] 05-31-2024 17:00-0400 Diastolic blood pressure 64 mm[Hg] Verena Aichholz [employer] Work Phone: [facility] 05-31-2024 17:00-0400 Heart rate 92 /min Verena Aichholz [employer] Work Phone: [facility] 05-31-2024 17:00-0400 Respiratory rate 18 /min Verena Radhahholz [employer] Work Phone: [facility] 05-31-2024 17:00-0400 SaO2% (BldA) [Mass fraction] 100 % Verena Radhahholz [employer] Work Phone: [facility] 05-31-2024 17:00-0400 Systolic blood pressure 108 mm[Hg] Verena Aichholz [employer] Work Phone: [facility] 05-26-2024 09:26-0400 Body height 175.26 cm Verena Radhahholz Work Phone: [facility] 05-26-2024 09:26-0400 Body mass index (BMI) [Ratio] 24.3 kg/m2 Verena Aichholz Work Phone: [facility] 05-26-2024 09:26-0400 Body weight 74.84 kg Verena Aichholz Work Phone: [facility] 04-04-2024 15:55-0400 Diastolic blood pressure 66 mm[Hg] Verena Aichholz Work Phone: [facility] 04-04-2024 15:55-0400 Heart rate 65 /min Verena Aichholz Work Phone: [facility] 04-04-2024 15:55-0400 Respiratory rate 16 /min Verena Aichholz Work Phone: [facility] 04-04-2024 15:55-0400 Systolic blood pressure 108 mm[Hg] Verena Aichholz Work Phone: [facility] 04-04-2024 13:26-0400 Body height 175.26 cm Verena Aichholz Work Phone: [facility] 04-04-2024 13:26-0400 Body weight 72.9 kg Verena Aichholz Work Phone: [facility] 01-11-2024 10:58-0400 Diastolic blood pressure 82 mm[Hg] Verena Aichholz Work Phone: [facility] 01-11-2024 10:58-0400 Heart rate 80 /min Verena Aichholz Work Phone: [facility] 01-11-2024 10:58-0400 Respiratory rate 16 /min Verena Aichholz Work Phone: [facility] 01-11-2024 10:58-0400 SaO2% (BldA) [Mass fraction] 99 % Verena Aichholz Work Phone: [facility] 01-11-2024 10:58-0400 Systolic blood pressure 123 mm[Hg] Verena Aichholz Work Phone: [facility] 01-11-2024 07:27-0400 Body height 175.26 cm Verena Rodriguez Work Phone: [facility] 01-11-2024 07:27-0400 Body weight 68.03 kg Verena Rodriguez Work Phone: [facility] 12-13-2023 10:50-0400 Body height 175.26 cm [facility] 12-13-2023 10:50-0400 Body mass index (BMI) [Ratio] 23 kg/m2 [facility] 12-13-2023 10:50-0400 Body weight 70.76 kg [facility] 12-13-2023 10:50-0400 Diastolic blood pressure 67 mm[Hg] [facility] 12-13-2023 10:50-0400 Systolic blood pressure 121 mm[Hg] [facility] 05-13-2023 14:00-0400 Body height 175.26 cm Minh Rocha Other [facility] [employer] Other 05-13-2023 14:00-0400 Body mass index (BMI) [Ratio] 26.28 kg/m2 Minh Rocha Other [employer] Other 05-13-2023 14:00-0400 Body weight 80.74 kg Minh Rocha Other [facility] [employer] Other Encounters Encounter Date Encounter Type Care Provider Facility Start: 07-08-2024 End: 07-13-2024 Clinisync Result Encounter Generic External Data Provider [facility] External [facility] Unsolicited Start: 07-08-2024 End: 07-13-2024 Clinisync Result Encounter Generic External Data Provider [facility] External Department Unsolicited Start: 07-06-2024 End: 07-15-2024 Evaluation and management of inpatient AMANDA OVALLES Facility:[facility] Start: 07-06-2024 End: 07-06-2024 Patient encounter procedure Amanda Ovalles MD Work Phone: Colorectal Surgery Comment on above: Crohn's disease of b oth small and large intestine with intestinal obstruction (HCC) (Primary Dx) Start: 07-06-2024 End: 07-08-2024 Clinisync Result Encounter Generic External Data Provider [facility] External Department Unsolicited Start: 07-06-2024 End: 07-08-2024 Clinisync Result Encounter Generic External Data Provider [facility] External Department Unsolicited Start: 07-04-2024 End: 07-04-2024 Clinisync Result Encounter Verena Rodriguez NP Work Phone: [facility] External [facility] Unsolicited Start: 07-04-2024 End: 07-04-2024 Clinisync Result Encounter Verena Rodriguez [employer] Work Phone: [facility] External [facility] Unsolicited Start: 07-03-2024 End: 07-03-2024 Office outpatient visit 25 minutes Verena Rodriguez NP Work Phone: [facility] Comment on above: Crohn's disease with out complication, unspecified gastrointestinal tract location (CMS/HCC) (Primary Dx); Pain and swelling of right lower extremity; Deep vein phlebitis and thrombophlebitis of lower extremity, right (HCC) (CMS/HCC); Nausea and vomiting, unspecified vomiting type; Diarrhea, unspecified type; Weight loss Start: 07-03-2024 End: 07-03-2024 ambulatory VERENA RODRIGUEZ Not Available Start: 07-03-2024 End: 07-03-2024 Bamboo flowsheet Verena Rodriguez [employer] Work Phone: [facility] Start: 07-03-2024 End: 07-03-2024 Bamboo flowsheet Verena Rodriguez [employer] Work Phone: [facility] Start: 06-19-2024 End: 06-19-2024 Office outpatient visit 25 minutes Verena Rodriguez NP Work Phone: [facility] Comment on above: Deep vein phlebitis and thrombophlebitis of lower extremity, right (HCC) ([facility]) (Primary Dx); Pain and swelling of right lower extremity Start: 06-19-2024 End: 06-19-2024 ambulatory VERENA RODRIGUEZ Not Available Start: 06-19-2024 End: 06-19-2024 Bamboo flowsheet Verena Rodriguez [employer] Work Phone: [facility] Start: 06-19-2024 End: 06-19-2024 Bamboo flowsheet Verena Rodriguez [employer] Work Phone: [facility] Start: 05-31-2024 End: 05-31-2024 Office outpatient visit 25 minutes Verena Rodriguez [employer] Work Phone: [facility] Comment on above: PING (generalized anx iety disorder) (CMS/[facility]) (Primary Dx); Crohn's disease without complication, unspecified gastrointestinal tract location ([facility]); Chronic dental infection Start: 05-31-2024 End: 05-31-2024 ambulatory VERENA RODRIGUEZ Not Available Start: 05-26-2024 End: 05-26-2024 ambulatory Verena Rodriguez Work Phone: [facility] Work Phone: Start: 05-26-2024 End: 05-26-2024 Patient encounter procedure Verena Rodriguez Work Phone: [facility] Gastroenterology Work Phone: Start: 05-24-2024 End: 05-24-2024 Refill Verena Rodriguez [employer] Work Phone: [facility] Comment on above: Anxiety Start: 05-08-2024 Non-patient / Non-visit Verena jackson Work Phone: [facility] G[facility] Work Phone: Start: 04-19-2024 End: 04-19-2024 ambulatory VERENA RODRIGUEZ Not Available Start: 04-04-2024 Registered Recurring Verena landry Work Phone: [facility] Ctr-Infusion Therapy - O/P Work Phone: Start: 04-04-2024 ambulatory Sonja L Ly Facility :[facility] Start: 03-02-2024 End: 03-02-2024 ambulatory VERENA KANNANHOLZ Not Available Start: 01-11-2024 Non-patient / Non-visit Verena almonteavrilsantana Work Phone: [facility] Work Phone: Start: 01-11-2024 End: 01-11-2024 Admission to same day surgery center Verena Brunneravrilsantana Work Phone: [facility] Ctr-Digestive Health Work Phone: Start: 01-11-2024 End: 01-11-2024 ambulatory Verena Brunneravrilsantana Work Phone: [facility] Work Phone: Start: 01-10-2024 End: 01-10-2024 Patient encounter procedure Verena Rodriguez Work Phone: [facility] Ctr-CT Scan [facility] [place] Work Phone: Start: 01-10-2024 End: 01-10-2024 ambulatory Verena Brunneravrilsantana Work Phone: [facility] Work Phone: Start: 12-20-2023 End: 12-20-2023 ambulatory VERENA AICJoséHOLZ Not Available Start: 12-13-2023 End: 12-13-2023 ambulatory [facility] Work Phone: Start: 12-13-2023 End: 12-13-2023 Patient encounter procedure [facility] Gastroenterology Work Phone: Start: 10-18-2023 End: 10-18-2023 ambulatory VERENA AICHHOLZ Not Available Start: 08-19-2023 End: 08-19-2023 ambulatory VERENA MICHAEL Not Available Start: 07-05-2023 End: 07-05-2023 ambulatory VERENA SUDEEPZ Not Available Start: 05-13-2023 End: 05-13-2023 ambulatory Minh Rocha Other [employer] Other Start: 05-13-2023 Office outpatient vi sit 25 minutes Minh Rocha [facility] Procedures Date Procedure Procedure Detail Performing Clinician Start: 07-08-2024 End: 07-08-2024 [facility] BACTERIA BLD CULT Generic External D janiya Provider Start: 07-06-2024 GRAM POSITIVE ORGANI SM ID BY MICROARRAY (PhonetimeIGENE) Generic External Data Provider Start: 07-06-2024 Antibody screen AMANDA OVALLES Comment on above: Order Comment: Speci men Type: BLOOD SPECIMENOrdering Facility: [facility] Address: [address] [place] [address] Performed By: #### T SCR ####[facility] [id number] [place] [address] [place] Start: 07-04-2024 ALL CBC WITH AUTO DIFF Verena Rodriguez [employer] Work Phone: Start: 01-11-2024 Colonoscopy Verena Karen simmons Work Phone: Start: 01-10-2024 CT of small intestine L ana laura Michael Work Phone: Plan of Treatment Date Care Activity Detail Author Start: 07-06-2027 Diabetes Screening Diabetes Screening [facility] Start: 08-09-2024 End: 08-09-2024 Patient encounter procedure 08/09/2024 5:30 PM EST Office Visit [facility] [address] [place] [id number] Verena Rodriguez NP [address] [place] [id number] [facility] Start: 07-06-2024 End: 07-06-2024 Exploratory laparotomy celiotomy w/wo biopsy spx EXPLORATORY LAPAROTOMY ADULT Colon perforation (HCC) 07/06/2024 8:04 PM EST [facility] Start: 07-03-2024 End: 07-03-2024 Patient encounter procedure [facility] CW[facility] Comment on above: Pain and swelling of right lower extremi ty (Primary Dx); Deep vein phlebitis and thrombophlebitis of lower extremity, right (HCC) (CMS/HCC); Crohn's disease without complication, unspecified gastrointestinal tract location (CMS/HCC) Start: 07-03-2024 End: 07-03-2025 CBC W Auto Differential panel - Blood CBC and differential Lab Routine Crohn's disease without complication, unspecified gastrointestinal tract location (CMS/HCC) Expected: 07/03/2024 (Approximate), Expires: 07/03/2025 [facility] Work Phone: Comment on above: Expected: 07/03/2024 (Approximate), Expi res: 07/03/2025 Start: 07-03-2024 End: 07-03-2025 Comprehensive metabolic 2000 panel - Serum or Plasma Comprehensive metabolic panel Lab Routine Crohn's disease without complication, unspecified gastrointestinal tract location (CMS/HCC) Nausea and vomiting, unspecified vomiting type Diarrhea, unspecified type Expected: 07/03/2024 (Approximate), Expires: 07/03/2025 [facility] Comment on above: Expected: 07/03/2024 (Approximate), Expi res: 07/03/2025 Start: 07-03-2024 End: 07-03-2025 Magnesium [Mass/volume] in Serum or Plasma Magnesium Lab Routine Crohn's disease without complication, unspecified gastrointestinal tract location (CMS/HCC) Nausea and vomiting, unspecified vomiting type Diarrhea, unspecified type Expected: 07/03/2024 (Approximate), Expires: 07/03/2025 [facility] Comment on above: Expected: 07/03/2024 (Approximate), Expi res: 07/03/2025 Start: 06-19-2024 End: 06-19-2024 Patient encounter procedure 06/19/2024 4:15 PM EST Office Visit [facility] [address] [place] [address] Verena Rodriguez NP [address] [place] [phone] Arrived [facility]OM[facility] SCHNEIDER Comment on above: Arrived Start: 06-19-2024 End: 06-19-2025 US.doppler Lower extremity vein - right Vascular US lower extremity venous duplex right Imaging STAT Deep vein phlebitis and thrombophlebitis of lower extremity, right (HCC) (CMS/HCC) Pain and swelling of right lower extremity Expected: 06/19/2024 (Approximate), Expires: 06/19/2025 [facility] Work Phone: Comment on above: Expected: 06/19/2024 (Approximate), Expi res: 06/19/2025 Start: 2024 Screening for malignant neoplasm of colon [facility] Start: 05-31-2024 End: 05-31-2024 Patient encounter procedure 05/31/2024 6:00 PM EDT Office Visit CHRISTINE SCHNEIDER [address] [place] [address] Verena Rodriguez NP [address] [place] [phone] [facility]ST[facility] SCHNEIDER Start: 04-02-2024 Covid-19 Vaccine ( season) Covid-19 Vaccine ( season) [facility] Start: 04-02-2024 Influenza vaccination [facility] Start: 01-11-2024 [facility] Start: 2014 Lipid panel Lipid Screening [facility] Start: 1998 Hepatitis B Vaccine (1 of 3 - 19+ 3-dose series) Hepatitis B Vaccine (1 of 3 - 19+ 3-dose series) [facility] Start: 1998 Urine microalbumin profile DTaP,Tdap,Td Vaccine (1 - Tdap) [facility] Start: 1997 Anxiety Screening Anxiety Screening [facility] Start: 1997 Depression Screening Depression Screening [facility] Start: 1997 Hepatitis C screening Hepatitis C Screening [facility] Start: 1997 HIV screening HIV Screening [facility] Start: 1979 Screening for malignant neoplasm of colon [facility] Bacteria identified in Stool by Culture [facility] Comprehensive metabo lic 1999 panel - Serum or Plasma [facility] CT Abdomen and Pelvis [facility] Hepatitis B core ant ibody measurement [facility] Hepatitis B virus crocker rface Ab [Presence] in Serum [facility] Patient Education Know your Meds [facility] Work Phone: [facility] Payers Date Payer Category Payer Self-pay 2023 Unknown WALTER ROWAN RAMONAKimberlee SS PPO [id number] 2023-Present [phone] [address] [place] [address] PPO [id number] 2022 [place] [employer] [facility] BCBS [id number] 2022 [place] [employer] [facility] [id number] 1979 Unknown [id number] [id number]. 1259 1979 Unknown [id number] [id number]. 1259 1979 Unknown [id number] 2.16.840.1.877900.3.579.2. 1259 1979 Unknown [id number] 2.16.840.1.342346.3.579.2. 1259 1979 Unknown [id number] 2.16.840.1.628266.3.579.2. 1259 1979 Unknown [id number] 2.16.840.1.060108.3.579.2. 1259 1979 Unknown [id number] 2.16.840.1.672365.3.579.2. 1259 1979 Unknown [id number] 2.16.840.1.706974.3.579.2. 1259 1979 Unknown [id number] 2.16.840.1.416038.3.579.2. 1259 Unknown O [id number] Unknown [id number] [id number]. 531 Unknown [id number] [id number]. 531 Unknown [id number] [id number]. 531 Social History Date Type Detail Facility Start: 07-05-2023 End: 12-20-2023 Sex Assigned At [facility] Start: 12-13-2023 End: 12-20-2023 Tobacco smoking status ALIS Ex-smoker (finding) [facility] Start: 1980 Sex Assigned At Male [facility] End: 08-02-2014 History of tobacco use Current smoker [facility] End: 08-02-2014 History of tobacco use Cigarette Smoker [facility] Start: 12-20-2023 End: 07-06-2024 Tobacco use and exposure Smokeless tobacco non-user [facility] Start: 04-19-2024 End: 07-03-2024 Alcoholic beverage intake Ex-drinker (finding) [facility] Start: 07-05-2023 End: 12-20-2023 History [...] To some extent [facility] (I/We) worried [facility] (my/our) food would run out before (I/we) got money to buy more. Never true [facility] Start: 1979 Sex assigned at Not on file [facility] Start: 07-06-2024 Tobacco smoking stat NHIS Never smoked tobacco [facility] Goals Date Patient Goal Desired Activity /State Clinical Notes 05-13-2023 to 07-15-2024 Amanda Ovalles MD - 07/06/2024 3:20 PM Keely Rowan [facility] - 07/06/2024 3:01 PM Keely Rowan OCCA - 07/06/2024 3:01 PM Ramonita Rodriguez NP - 07/03/2024 8:26 PM EST Note Date & Type Note Facility 07-15-2024 Note HNO ID: [id number] Author: RUPALI MARTÍNEZ RN Service: Care Management Author Type: Registered Nurse Type: Care Mgt Progress Note Filed: 07/15/2024 12:02 Note Text: CARE MANAGEMENT DISCHARGE NOTE SERVICE DATE: 07/15/2024 SERVICE TIME: 12:01 PM LOS: 9 days Needs Prior to Discharge: Ready for Discharge Planned for DC home today [facility] set for home IV abx, [facility] accepting, both for SOC for this evening dose of IV abx Family to transport SIGNATURE: Rupali Martínez RN PATIENT NAME: Faiza Lozano DATE: July 15, 2024 TIME: 12:01 PM [facility] 07-15-2024 Note HNO ID: [id number] Author: CRUZ PILLAI MD Service: Colorectal Author Type: Resident Type: Progress Notes Filed: 07/15/2024 10:34 Note Text: COLORECTAL SURGERY PROGRESS NOTE NAME: Faiza Lozano July 14, 2024 10:40 AM Subjective: Interval events: NAEON Patient doingwell on RA . Pain well controlled . Tolerating diet. No nausea or vomtiing High stoma output Objective: 07/14/24 0732 07/14/24 1527 07/14/24 2313 07/15/24 0711 BP: 98/57 98/60 96/61 100/60 Pulse: 82 80 62 75 Resp: 18 18 18 16 Temp: 36.8 ?C (98.2 ?F) 37 ?C (98.6 ?F) 36.2 ?C (97.2 ?F) 36.6 ?C (97.9 ?F) TempSrc: Oral Oral Oral Oral SpO2: 100% 98% 100% 100% Weight: Height: Stoma output - 2000 ml GENERAL: Well appearing. PULM: non labored breathing on RA CVS: Regular rate and rhythm, extremities warm and well perfused ABDOMEN: soft, non distended,incision sites c/d/ I . Stoma pink and viable - semisolid stool in bag Recent Labs 07/15/24 0503 07/14/24 0520 07/13/24 0623 07/13/24 0621 WBC 7.67 8.07 8.17 -- HB 11.5* 11.4* 11.2* -- HCT 35.4* 35.3* 35.0* -- PLT 355 325 307 -- NA 138 140 -- 139 K 4.0 4.2 -- 4.1 CHLOR 104 104 -- 106 CO2 25 25 -- 25 CREAT 0.86 0.81 -- 0.84 BUN 18 18 -- 14 GLUC 79 77 -- 79 P 3.0 2.9 -- 2.2* TPROT 6.9 6.6 -- 6.0* ALB 3.8* 3.5* -- 3.3* MG 1.9 2.0 -- 2.0 CA 9.0 8.9 -- 8.6 ALKPHOS 80 72 -- 65 TBILI 0.5 0.4 -- 0.4 AST 32 29 -- 27 ALT 61* 49 -- 39 Assessment and Plan: Faiza Lozano is a 44 year old male, who was admitted on 07/06/2024, hx of Crohn's s/p prior ICR. Presented to the ED with abdominal pain found to have CT AP showing right colonic distension and hyperemia, with exam concerning for peritonitis. S/p Exploratory laparotomy, hepatic abscess drainage, prior ileocolonic anastomosis resection, end ileostomy 07/06 . Having high output ileostomy post op, monitoring output, replacing fluid and started on immodium Plan: Neuro/Pain: Continue current pain control regimen, Cardio/Resp: incentive spirometry FEN/GI: . Replete Lytes prn. Diet: GIS, , Zofran prn. Monitor Stoma output; 1/2 replacement now Imodium up to 4 mg AC/HS Renal: Strict I/Os. Urine output adequate . Heme/DVT PPx: ICDs, Lovenox SQ Wound/ID: Continue Abx per ID Heme: No evidence of bleeding; no indication for transfusion Lines/drains: HELEN drain to be taken out today Activity: Out of Bed, ambulate as able. Plan of care dscussed with Surgery Staff Dr. Gallego . Cruz Pillai MD General surgery resident General Surgery Colorectal Surgery On-Call Pager: [phone] [facility] 07-14-2024 Note HNO ID: [id number] Author: ОЛЬГА CAMP, RN Service: Care Management Author Type: Registered Nurse Type: Care Mgt Progress Note Filed: 07/14/2024 16:14 Note Text: CARE MANAGEMENT WEEKEND PLANNING NOTE DISCHARGE OR POSSIBLE DISCHARGE Date/Time: Wednesday [facility] #: [phone] SOC Date: Sunday 07/15 Services: Nursing Home Transport: Car Spouse Weekend [employer] Pager #: Wednesday and Wednesday Kassie Martínez Plan to DC with IV Zosyn q6h. [facility] can accept alongside [facility] for home infusion pharmacy. Both companies available for SOC and medication delivery tomorrow around 6PM. Patient would need to leave hospital after 12PM dose. He lives in [place] about 1.5 hours away. Message sent to Dr. Hurley to update Rx, per request of [facility], to include or continuous. This needs completed and faxed to agency. SIGNATURE: Ольга Camp RN PATIENT NAME: Faiza Lozano DATE: July 14, 2024 TIME: 4:09 PM PAGER/CONTACT #: [facility] 07-14-2024 Note HNO ID: [id number] Author: AMANDA OVALLES MD Service: Colorectal Author Type: Fellow Type: Progress Notes Filed: 07/14/2024 15:09 Note Text: Attestation signed by Amanda Ovalles MD at 07/14/2024 3:09 PM I evaluated the patient and personally participated in the shankar components. I agree with the resident's findings and plan with the following revisions and/or additions: ostomy output better. Dispo planning Signature: Amanda Ovalles MD Service Date: 07/14/2024 COLORECTAL SURGERY PROGRESS NOTE NAME: Faiza Lozano July 14, 2024 10:40 AM Subjective: Interval events: Patient doingwell on RA . Pain well controlled . Tolerates diet. No nausea or vomtiing High stoma output Objective: 07/13/24 1509 07/14/24 0009 07/14/24 0142 07/14/24 0732 BP: 97/51 87/54 109/56 98/57 Pulse: 70 65 (!) 51 82 Resp: 14 16 18 Temp: 36.4 ?C (97.5 ?F) 36.7 ?C (98.1 ?F) 36.8 ?C (98.2 ?F) TempSrc: Oral Oral Oral SpO2: 100% 100% 100% 100% Weight: Height: Stoma output - 1900 ml GENERAL: Well appearing. PULM: non labored breathing on RA CVS: Regular rate and rhythm, extremities warm and well perfused ABDOMEN: soft, non distended,incision sites c/d/ I . Stoma pink and viable - semisolid stool in bag Recent Labs 07/14/24 0520 07/13/24 0623 07/13/24 0621 07/12/24 0506 WBC 8.07 8.17 -- 7.93 HB 11.4* 11.2* -- 10.4* HCT 35.3* 35.0* -- 31.9* PLT 325 307 -- 266 NA 140 -- 139 142 K 4.2 -- 4.1 3.6* CHLOR 104 -- 106 109* CO2 25 -- 25 25 CREAT 0.81 -- 0.84 0.83 BUN 18 -- 14 14 GLUC 77 -- 79 89 P 2.9 -- 2.2* 2.3* TPROT 6.6 -- 6.0* 5.2* ALB 3.5* -- 3.3* 2.8* MG 2.0 -- 2.0 1.9 CA 8.9 -- 8.6 8.1* ALKPHOS 72 -- 65 55 TBILI 0.4 -- 0.4 0.4 AST 29 -- 27 18 ALT 49 -- 39 24 Assessment and Plan: Faiza Lozano is a 44 year old male, who was admitted on 07/06/2024, hx of Crohn's s/p prior ICR. Presented to the ED with abdominal pain found to have CT AP showing right colonic distension and hyperemia, with exam concerning for peritonitis. S/p Exploratory laparotomy, hepatic abscess drainage, prior ileocolonic anastomosis resection, end ileostomy 07/06 . Having high output ileostomy post op, monitoring output, replacing fluid and started on immodium Plan: Neuro/Pain: Continue current pain control regimen, Cardio/Resp: incentive spirometry FEN/GI: . Replete Lytes prn. Diet: GIS, , Zofran prn. Monitor Stoma output; 1/2 replacement now Imodium up to 4 mg TID Renal: Strict I/Os. Urine output adequate . Heme/DVT PPx: ICDs, Lovenox SQ Wound/ID: Continue Abx for at least 4 days (end date set) Heme: No evidence of bleeding; no indication for transfusion Lines/drains: HELEN drain to be taken out today Activity: Out of Bed, ambulate as able. Plan of care to be discussed with Surgery Staff Dr. Ovalles . Carmine Lanza MD Colorectal Fellow General Surgery Colorectal Surgery On-Call Pager: [phone] [facility] 07-13-2024 Note HNO ID: [id number] Author: JAELYN GRACE RN Service: Care Management Author Type: Registered Nurse Type: Care Mgt Progress Note Filed: 07/13/2024 10:46 Note Text: CARE MANAGEMENT PROGRESS NOTE SERVICE DATE: 07/13/2024 SERVICE TIME: 10:43am LOS: 7 days [facility] will follow for ostomy care, IVAs. I will provide IVAs - RX was sent. Both agencies have been updated that pt is not ready for dc today. CM will follow up in the morning SIGNATURE: Jaelyn Grace RN PATIENT NAME: Faiza Lozano DATE: July 13, 2024 TIME: 10:43 AM [facility] 07-13-2024 Note HNO ID: [id number] Author: CRUZ PILLAI MD Service: Colorectal Author Type: Resident Type: Progress Notes Filed: 07/13/2024 08:12 Note Text: Attestation signed by Amanda Ovalles MD at 07/13/2024 8:08 PM I evaluated the patient and personally participated in the shankar components. I agree with the resident's findings and plan with the following revisions and/or additions: High stoma output. Optimize amount and consistency prior to d/c. D/c drain Signature: Amanda Ovalles MD Service Date: 07/13/2024 COLORECTAL SURGERY PROGRESS NOTE NAME: Faiza Lozano 07/13/2024 8:10 AM Subjective: Interval events: Patient doingwell on RA Pain well controlled No nausea or vomtiing High stoma output Objective: 07/12/24 1544 07/12/24 2318 07/13/24 0715 07/13/24 0735 BP: 112/62 91/55 (!) 87/41 100/62 Pulse: 76 (!) 54 69 Resp: 16 12 Temp: 36.7 ?C (98.1 ?F) 36.8 ?C (98.2 ?F) 37 ?C (98.6 ?F) TempSrc: Oral Oral Oral SpO2: 100% 99% 100% Weight: Height: GENERAL: Well appearing. PULM: non labored breathing on RA CVS: Regular rate and rhythm, extremities warm and well perfused ABDOMEN: soft, non distended,incision sites c/d/ I Recent Labs 07/13/24 0623 07/13/24 0621 07/12/24 0506 07/11/24 1053 07/11/24 0537 WBC 8.17 -- 7.93 -- 6.94 HB 11.2* -- 10.4* -- 11.3* HCT 35.0* -- 31.9* -- 33.9* PLT 307 -- 266 -- 233 NA -- 139 142 -- 139 K -- 4.1 3.6* 3.4* -- CHLOR -- 106 109* -- 107 CO2 -- 25 25 -- 20* CREAT -- 0.84 0.83 -- 0.77 BUN -- 14 14 -- 14 GLUC -- 79 89 -- 91 P -- 2.2* 2.3* -- 3.0 TPROT -- 6.0* 5.2* -- 5.4* ALB -- 3.3* 2.8* -- 2.7* MG -- 2.0 1.9 -- 1.9 CA -- 8.6 8.1* -- 8.2* ALKPHOS -- 65 55 -- 57 TBILI -- 0.4 0.4 -- 0.5 AST -- 27 18 -- -- ALT -- 39 24 -- -- Assessment and Plan: Faiza Lozano is a 44 year old male, who was admitted on 07/06/2024, hx of Crohn's s/p prior ICR. Presented to the ED with abdominal pain found to have CT AP showing right colonic distension and hyperemia, with exam concerning for peritonitis. S/p Exploratory laparotomy, hepatic abscess drainage, prior ileocolonic anastomosis resection, end ileostomy 07/06 Neuro/Pain: Continue current pain control regimen, Cardio/Resp: incentive spirometry FEN/GI: . Replete Lytes prn. Diet: GIS, , Zofran prn. Monitor Stoma output; 1/2 replacement now Started 30mg PO steroids Renal: Strict I/Os. Urine output adequate . Heme/DVT PPx: ICDs, Lovenox SQ Wound/ID: Continue Abx for at least 4 days (end date set) Heme: No evidence of bleeding; no indication for transfusion Lines/drains: 3 PIV, Drain Activity: Out of Bed, ambulate as able. Dispo: RNF Plan of care to be discussed with Surgery Staff Dr. Ovalles . Cruz Pillai MD General Surgery Resident Blue Team Pager: [phone] General Surgery Colorectal Surgery On-Call Pager: [phone] [facility] 07-12-2024 Note HNO ID: [id number] Author: JAELYN GRACE RN Service: Care Management Author Type: Registered Nurse Type: Care Mgt Progress Note Filed: 07/12/2024 15:00 Note Text: CARE MANAGEMENT PROGRESS NOTE SERVICE DATE: 07/12/2024 SERVICE TIME: 2:58pm LOS: 6 days CM met w/ pt and his S.O. who will be assisting with ostomy care. Pt is aware that [facility] will follow to assist with ostomy care and IVAs and [facility] will provide IVAs. Pt agrees to the plan. Possible dc tomorrow, [facility] and I have been updated. SIGNATURE: Jaelyn Grace RN PATIENT NAME: aFiza Lozano DATE: July 12, 2024 TIME: 2:58 PM [facility] 07-12-2024 Note HNO ID: [id number] Author: EVERETT ROSALES MD Service: Colorectal Author Type: Resident Type: Progress Notes Filed: 07/12/2024 10:06 Note Text: Attestation signed by Amanda Ovalles MD at 07/12/2024 11:17 AM I evaluated the patient and personally participated in the shankar components. I agree with the resident's findings and plan with the following revisions and/or additions: Will likely need antimotility agent but will see how output change today with more PO intake. Otherwise progressing well and will need VNS, steroid taper, 4 week IV abx on d/c and lovenox ppx for 21 days Signature: Amanda Ovalles MD Service Date: 07/12/2024 COLORECTAL SURGERY PROGRESS NOTE NAME: Faiza Lozano 07/12/2024 10:04 AM Subjective: Interval events: Patient doingwell on RA pain well controlled No nausea or vomtiing High stoma output Objective: 07/11/2472507/11/24 1602 07/11/242 07/12/24709 BP: 101/61 104/67 (!) 91/47 95/54 Pulse: (!) 47 70 (!) 56 (!) 55 Resp: 07 13 16 16 Temp: 36.4 ?C (97.5 ?F) 36.7 ?C (98.1 ?F) 36.3 ?C (97.3 ?F) 36.6 ?C (97.9 ?F) TempSrc: Oral Oral Oral Oral SpO2: 97% 99% 97% 99% Weight: Height: GENERAL: Well appearing. PULM: non labored breathing on RA CVS: Regular rate and rhythm, extremities warm and well perfused ABDOMEN: soft, non distended,incision sites c/d/ I Recent Labs 07/12/24 0506 07/11/24 1053 07/11/24 0537 07/10/24 0532 WBC 7.93 -- 6.94 7.20 HB 10.4* -- 11.3* 10.8* HCT 31.9* -- 33.9* 33.8* PLT 266 -- 233 218 NA 142 -- 139 144 K 3.6* 3.4* -- 3.6* CHLOR 109* -- 107 109* CO2 25 -- 20* 24 CREAT 0.83 -- 0.77 0.90 BUN 14 -- 14 20 GLUC 89 -- 91 81 P 2.3* -- 3.0 3.6 TPROT 5.2* -- 5.4* 5.7* ALB 2.8* -- 2.7* 3.0* MG 1.9 -- 1.9 2.0 CA 8.1* -- 8.2* 8.6 ALKPHOS 55 -- 57 63 TBILI 0.4 -- 0.5 0.5 AST 18 -- -- 21 ALT 24 -- -- 27 Assessment and Plan: Faiza Lozano is a 44 year old male, who was admitted on 07/06/2024, hx of Crohn's s/p prior ICR. Presented to the ED with abdominal pain found to have CT AP showing right colonic distension and hyperemia, with exam concerning for peritonitis. S/p Exploratory laparotomy, hepatic abscess drainage, prior ileocolonic anastomosis resection, end ileostomy 07/06 Neuro/Pain: Continue current pain control regimen, Cardio/Resp: incentive spirometry FEN/GI: . Replete Lytes prn. Diet: GIS, , Zofran prn. Monitor Stoma output Started 30mg PO steroids Renal: Strict I/Os. Urine output adequate . Heme/DVT PPx: ICDs, Lovenox SQ Wound/ID: Continue Abx for at least 4 days Heme: No evidence of bleeding; no indication for transfusion Lines/drains: 3 PIV, Drain Activity: Out of Bed, ambulate as able. Dispo: RNF Plan of care discussed with Surgery Staff Dr. Ovalles . Everett Rosales MD General Surgery Resident Blue Team Pager: [phone] General Surgery Colorectal Surgery On-Call Pager: [phone] [facility] 07-11-2024 Note HNO ID: [id number] Author: ARUNA NUNO LSW Service: Care Management Author Type: Pump Oiler Type: Care Mgt Progress Note Filed: 07/11/2024 16:04 Note Text: CARE MANAGEMENT NOTE SW received notification from REX Vera that this pt will need IVABT upon discharge Previous CM had shared referral for HHC and pt had been accepted to [facility] HHC agency. This SW attached revised HHC orders to open referral in [facility] and informed agency of need for IVABT Pending finalized script for IVABT - SW sent message to RN and Dr. Hurley requesting to be alerted when script is ready in order to proceed with arrangements. Still pending script at this time SW/TCC RN to continue to follow SIGNATURE: DEBI Howell PATIENT NAME: Faiza Lozano DATE: July 11, 2024 TIME: 3:40 PM [facility] 07-11-2024 Note HNO ID: [id number] Author: JESSICA GONZÁLES RN Service: PICC Team Author Type: Registered Nurse Type: Procedures Filed: 07/11/2024 15:31 Note Text: PICC NURSE INSERTION NOTE DATE OF PROCEDURE: July 11, 2024 TIME OF PROCEDURE: 1500 ORDERING PHYSICIAN: Kandy Vera APRN.CNP INFORMED CONSENT: Obtained per hospital policy. INDICATION FOR LINE PLACEMENT: COPAT CONDITION OF LINE PLACEMENT: Sterile PRIMARY PROCEDURALIST: Alana Hurt RN QUALITY ASSURANCE MONITOR CHASSIS: Jessica Gonzáles RN PRE-PROCEDURE REVIEW ALLERGIES Allergen Reactions Sulfamethoxazole-Tr* Anaphylaxis Known History of Upper Venous Thrombosis: No Known History of Permanent Pacemaker or Automated Implanted Cardiac Device: No Previous Breast Surgery of Lymph Node Dissection: No Estimated Glomerular Filtration Rate Date Value Ref Range Status 07/11/2024 113 >=60 mL/min/1.73m? Final Comment: Estimated Glomerular Filtration Rate (eGFR) is calculated using the 2020 CKD-EPI creatinine equation. This equation utilizes serum creatinine, sex, and age as parameters. The creatinine assay has traceable calibration to isotope dilution-mass spectrometry. Refer to KDIGO guidelines for clinical interpretation. In patients with unstable renal function, e.g. those with acute kidney injury, the eGFR may not accurately reflect actual GFR. History of Renal Disease: No Ultrasound Assessment Complete: Yes PROCEDURE NARRATIVE SAFE PRACTICE Hand Hygiene per Hospital Policy: Yes Skin Preparation Unit Dose Applicator Used: Chloraprep (CHG + alcohol), allowed to dry. Procedure Surface Cleansed with Antimicrobial Wipes: Yes Barriers Used by Proceduralist and all Assisting Personnel: Yes UNIVERSAL PROTOCOL / SAFETY CHECKLIST Procedure to be Performed: Ultrasound guided peripherally inserted central catheter placement Sign In: A Moment of CARE was completed. Personnel directly involved with the procedure wore the appropriate PPE (Personal Protective Equipment). Patient/Surrogate Stated/Verified: PATIENT VERIFIED(optional for EMERGENT procedures): Patient name, Date of , Relevant allergies, and The intended procedure Time Out Communication: Intended patient and procedure match the source documents. Consent documented and matches the intended procedure. Sign Out: SIGN OUT (optional for EMERGENT procedures): No specimen collected. All instruments, equipment, possible retained foreign bodies accounted for. Jessica Gonzáles RN CATHETER PLACEMENT Brand: MarkTend Lot: [id number] Number of Lumens: 1 Type of PICC: Power Injectable PICC Lumen Size: 4 Cook Islander PLACEMENT TECHNIQUE Lidocaine: Yes, Lidocaine 1% Volume 2 mL Subcutaneous Modified Seldinger Technique Used to Place Line via the Right Cephalic Ultrasound Guidance: Yes Number of Attempts at Insertion: 2 Ensured control of guidewire during all aspects of the procedure: Yes Accounted for entire guidewire upon removal: Yes Internal Length: 37 cm External Length: 0 cm Trim Length: 37 cm Mid-Arm Circumference: 29 centimeters Post Insertion Pain Level Related to Procedure: 0 Action Taken to Address Pain: None needed Verified Placement: Blood return and flushes with ease and Tip location system or device indicates the tip is located in the SVC/CAJ. Line was Flushed with 20 mL normal saline Line Secured with: Securement device Sterile Dressing Applied and Dated: Yes Sterile Caps on all Ports Prior to Leaving Procedure Area: Yes, Disinfection caps applied SPECIMENS: None COMPLICATIONS: None Patient Education Materials: Placed in chart [facility] Line Insertion checklist was utilized during this procedure. QUESTIONS or PROBLEMS: Call [phone] SIGNATURE: Jessica Gonzáles RN PATIENT NAME: Faiza Lozano DATE: July 11, 2024 TIME: 2:50 PM PAGER/CONTACT PHONE: [facility] 07-11-2024 Note HNO ID: [id number] Author: CRUZ PILLAI MD Service: Colorectal Author Type: Resident Type: Progress Notes Filed: 07/11/2024 09:01 Note Text: COLORECTAL SURGERY PROGRESS NOTE NAME: Faiza Lozano 07/11/2024 9:00 AM Subjective: Interval events: Patient doingwell on RA Having stoma output (1.2L) with pain well controlled No nausea or vomtiing Objective: 07/10/24 0758 07/10/24 1604 07/10/24 2331 07/11/24 0726 BP: 93/54 101/62 90/54 101/61 Pulse: (!) 43 (!) 52 (!) 50 (!) 47 Resp: 17 16 12 Temp: 36.5 ?C (97.7 ?F) 36.9 ?C (98.4 ?F) 36.5 ?C (97.7 ?F) 36.4 ?C (97.5 ?F) TempSrc: Oral Oral Oral SpO2: 98% 98% 98% 97% Weight: Height: GENERAL: Well appearing. PULM: non labored breathing on RA CVS: Regular rate and rhythm, extremities warm and well perfused ABDOMEN: soft, non distended,incision sites are covered with dressing Recent Labs 07/11/24 0537 07/10/24 0532 07/09/24 0518 WBC 6.94 7.20 12.20* HB 11.3* 10.8* 9.4* HCT 33.9* 33.8* 28.4* PLT 233 218 217 NA 139 144 142 K -- 3.6* 3.7 CHLOR 107 109* 109* CO2 20* 24 25 CREAT 0.77 0.90 0.80 BUN 14 20 20 GLUC 91 81 129* P 3.0 3.6 3.1 TPROT 5.4* 5.7* 5.6* ALB 2.7* 3.0* 3.0* MG 1.9 2.0 2.0 CA 8.2* 8.6 8.4* ALKPHOS 57 63 68 TBILI 0.5 0.5 0.6 AST -- 21 27 ALT -- 27 33 Assessment and Plan: Faiza Lozano is a 44 year old male, who was admitted on 07/06/2024, hx of Crohn's s/p prior ICR. Presented to the ED with abdominal pain - Start GIS diet - Transition to oral steroids - Continue HELEN drain - Touch base with infectious disease Neuro/Pain: Continue current pain control regimen, Continue MEDICARE INTERVIEWER Cardio/Resp: incentive spirometry FEN/GI: mIVF. Replete Lytes prn. Diet: GIS, , Zofran prn. Taper Steroid down with 100 Q12 will discuss PO steroids with staff Renal: Strict I/Os. Urine output adequate . Heme/DVT PPx: ICDs, Lovenox SQ Wound/ID: Continue Abx for at least 4 days Heme: No evidence of bleeding; no indication for transfusion Lines/drains: 3 PIV, Drain Activity: Out of Bed, ambulate as able. Dispo: RNF Plan of care discussed with Surgery Staff Dr. Ovalles . Cruz Pillai MD General Surgery Resident Blue Team Pager: [phone] General Surgery Colorectal Surgery On-Call Pager: [phone] [facility] 07-10-2024 Note HNO ID: [id number] Author: JAELYN GRACE RN Service: Care Management Author Type: Registered Nurse Type: Care Mgt Initial Assessment Filed: 07/10/2024 13:14 Note Text: CARE MANAGEMENT: ASSESSMENT AND DISCHARGE PLAN SERVICE DATE: July 10, 2024 SERVICE TIME: 12:50pm PCP: Verena Rodriguez CNP, FIRE OBSERVER Primary Contact: Extended Emergency Contact Information Primary Emergency Contact: KendraGabrielle [address]: [address] [place] [address] [place] [address] [place] Mobile Relation: Significant other Preferred language: SAMMARINESE Software Developer Manager needed? No Secondary Emergency Contact: Kaylin Olivas Mobile Relation: Mother Admission Status: Inpatient Insurance Provider: [facility] PPO Discharge Planning requested by: Attending Provider Potential Transition Plans Home Care Advance Directives Current Advance Directive: None Die Maker Bench Stamping Attempted to Assist with AD Completion: Yes Action: Patient Unwilling Current Living Arrangements and Support Lives with: Spouse/significant other Type of Residence: Mobile Home Does the patient have to climb stairs at home?: Yes;stairs outside the home Support: Spouse/significant other, Parent How do you manage to accomplish the following: Independent: Ambulation;Bathe/Shower;Dress;Me als/Meal Prep;Going to the bathroom;Medication Management;Transportation to appointments/community Current Services/Equipment Current Post-Acute Service(s): None Discharge Planning Patient Goal(s): General wellness Lapel of Choice Explained: Lapel of Choice Given: Yes Level of Care Discussed: Home Care Are you interested in bedside delivery of your medications? Yes Discharge Planning Participant(s): Patient;Spouse/significant other;Parents Patient/Family Comments: Caregiver Assessment: Caregiver is ready, willing and able to meet the patient's needs as recommended by the inter-professional team: No Caregiver needed Transport at Discharge: Transportation Arrangements: Car Needs Prior to Discharge: Needs Prior to Discharge: Other: See Comment (accepting [facility] agency) Post-Acute Discharge Plan: POD 4 Exploratory Laparotomy 2) Resection of ileocolic anastomosis 3) Washout and drainage of liver/intra-abdominal abscess 4) Creation of end ileostomy. CM met w/ pt at bedside to discuss dc plan. 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 in a mobile home. Pt states his S.O. used to work in nursing homes and is comfortable assisting with ostomy care. Pt agrees to [facility] with no AOC. Referrals sent, awaiting responses. F2F is attached. CM will follow. SIGNATURE: Jaelyn Grace RN PATIENT NAME: Faiza Lozano DATE: July 10, 2024 TIME: 12:50 PM CONTACT #: [phone] [facility] 07-10-2024 Note HNO ID: [id number] Author: EVERETT ROSALES MD Service: Colorectal Author Type: Resident Type: Progress Notes Filed: 07/10/2024 08:02 Note Text: Attestation signed by Amanda Ovalles MD at 07/10/2024 6:39 PM I evaluated the patient and personally participated in the shankar components. I agree with the resident's findings and plan with the following revisions and/or additions: Clears, WOCN, OOB/ambulate, abx per ID. Will transition to oral steroids tomorrow. Monitor drain output Signature: Amanda Ovalles MD Service Date: 07/10/2024 COLORECTAL SURGERY PROGRESS NOTE NAME: Faiza Lozano 07/10/2024 8:01 AM Subjective: Interval events: Patient doingwell on RA Having stoma output with pain well controlled No nausea or vomtiing Objective: 07/09/24 1400 07/09/24 1500 07/09/24 1636 07/09/24 2312 BP: 98/59 102/58 106/61 101/60 Pulse: (!) 56 (!) 49 (!) 45 (!) 47 Resp: 17 20 18 18 Temp: 37.2 ?C (99 ?F) 36.8 ?C (98.2 ?F) TempSrc: Oral Oral SpO2: 97% 97% 99% 94% Weight: Height: GENERAL: Well appearing. PULM: non labored breathing on RA CVS: Regular rate and rhythm, extremities warm and well perfused ABDOMEN: soft, non distended,incision sites are covered with dressing Recent Labs 07/10/24 0532 07/09/24 0518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 anxiety disorder) ([facility]) Generalized anxiety disorder Poor dentition Anxiety Anxiety state, unspecified documented in this encounter [facility] Diagnosis Onset Date Resolution Status Crohn's disease acute [facility] Work Phone: Evaluation note* Diagnosis Anxiety- Primary Anxiety state, unspecified BMI 24.0-24.9, adult Hypoglycemia Hypoglycemia, unspecified Crohn's disease without complication, unspecified gastrointestinal tract location ([facility]/HCC)- Primary Tobacco user Tobacco use disorder Anxiety Anxiety state, unspecified Hypoglycemia Hypoglycemia, unspecified Anxiety- Primary Anxiety state, unspecified Crohn's disease without complication, unspecified gastrointestinal tract location ([facility]) Incisional hernia, without obstruction or gangrene Anxiety- Primary Anxiety state, unspecified Crohn's disease without complication, unspecified gastrointestinal tract location ([facility]) Current mild episode of major depressive disorder without prior episode (HCC) ([facility]) PING (generalized anxiety disorder) ([facility]) Generalized anxiety disorder Poor dentition PING (generalized anxiety disorder) ([facility])- Primary Generalized anxiety disorder Crohn's disease without complication, unspecified gastrointestinal tract location ([facility]) Chronic dental infection Chronic periodontitis, unspecified documented in this encounter [facility]* Diagnosis Anxiety- Primary Anxiety state, [...] disorder without prior episode (HCC) ([facility]) PING (generalized anxiety disorder) ([facility]) Generalized anxiety disorder Poor dentition PING (generalized anxiety disorder) (CMS/HCC)- Primary Generalized anxiety disorder Crohn's disease without complication, unspecified gastrointestinal tract location (CMS/HCC) Chronic dental infection Chronic periodontitis, unspecified Current mild episode of major depressive disorder without prior episode (HCC) (CMS/HCC) Deep vein phlebitis and thrombophlebitis of lower extremity, right (HCC) (CMS/HCC)- Primary Pain and swelling of right lower extremity documented in this encounter [facility]* Diagnosis Anxiety- Primary Anxiety state, [...] episode (HCC) (CMS/HCC) PING (generalized anxiety disorder) (CMS/HCC) Generalized anxiety disorder Poor dentition PING (generalized anxiety disorder) (CMS/HCC)- Primary Generalized anxiety disorder Crohn's disease without complication, unspecified gastrointestinal tract location (CMS/HCC) Chronic dental infection Chronic periodontitis, unspecified Current mild episode of major depressive disorder without prior episode (HCC) (CMS/HCC) Deep vein phlebitis and thrombophlebitis of lower extremity, right (HCC) (CMS/HCC)- Primary Pain and swelling of right lower extremity Crohn's disease without complication, unspecified gastrointestinal tract location (CMS/HCC)- Primary Pain and swelling of right lower extremity Deep vein phlebitis and thrombophlebitis of lower extremity, right (HCC) (CMS/HCC) Nausea and vomiting, unspecified vomiting type Diarrhea, unspecified type Weight loss Loss of weight documented in this encounter [facility]* Diagnosis Crohn's disease of both small and large intestine with intestinal obstruction (HCC)- Primary Regional enteritis of small intestine with large intestine documented in this encounter [facility] general Narrative - Reported* Type Description Date Medical History Crohns disease Surgical History colectomy, partial 2008 Hospitalization History see above surgical histo ry [employer] Other Chief Complaint and Reason for Visit Chief Complaint crohns/ref verena kannan landry Reason for Visit Diarrhea Hx of Crohn's disease Nausea & vomiting Weight loss Chief Complaint crohns/ref verena kannan gris R63.4 R11.2 Z87.19 R19.7 Reason for Visit Diarrhea Hx of Crohn's disease Nausea & vomiting Weight loss Chief Complaint crohns/ref verena kannan mackenziez R63.4 R11.2 Z87.19 R19.7 hx of chron's diarrhea weight loss hx of chron's diarrhea weight loss Reason for Visit Diarrhea Hx of Crohn's disease Nausea & vomiting Weight loss Chief Complaint Crohns disease Amb Documentation 3 month follow up colonoscopy Reason for Visit Crohn's disease Family History No Family History Records Found Relationship Condition Age at Onset Recorded Date/T [...] Unknown mother Diabetes mellitus Unknown Advance Directives No Advanced Directives Records Found Advance Directive Response Recorded Date/ Time Advance Directives Yes November 01 1:55pm Summary Purpose Additional Source Comments REASON FOR VISIT (unrecogniz ed section and content) Reason Comments Crohns Care Teams (unrecognized sec tion and content) [...] 26, 2024 End: May 26, 2024 Sonja Sellers DO Attending Provider Active St art: May 26, 2024 End: May 26, 2024 Team Status: Active Member Role Status Dates PHYSICIAN NO FAMILY Primary Care Provider Active Team Status: Inactive Member Role Status Dates PHYSICIAN NO FAMILY Primary Care Provider Active Start: December 13, 2023 End: December 13, 2023 Sonja Sellers , DO Attending Provider Active St art: December 13, 2023 End: December 13, 2023 Team Status: Inactive Member Role Status Dates Sonja Sellers , DO Attending Provider Active St art: January 10, 2024 End: January 10, 2024 Verena Rodriguez Primary Care Provider Active Sta rt: January 10, 2024 End: January 10, 2024 Team Status: Inactive Member Role Status Dates Sonja Sellers , DO Attending Provider Active St art: January 11, 2024 End: January 11, 2024 Verena Rodriguez Primary Care Provider Active Sta rt: January 11, 2024 End: January 11, 2024 Team Status: Active Member Role Status Dates Sonja Sellers , DO Attending Provider, Other Provider Active Start: January 11, 2024 Verena Rodriguez Primary Care Provider Active Sta rt: January 11, 2024 Admission Specialist Relationship Specialty Start Date End Date Verena Rodriguez NP [address] [place] [phone] PCP - [facility] 06/02/23 Javy Grimm MD [address] [place] [id number] PCP - General Family Medicine 08/19/23 Verena Rodriguez NP [address] [place] [phone] Nurse Practitioner Family Medicine 08/02/22 Verena Rodriguez NP [address] [place] [phone] Nurse Practitioner Family Medicine 08/19/23 Admission Specialist Relationship Specialty Start Date End Date Verena Rodriguez NP [address] [place] [phone] PCP - [facility] [employer] 06/02/23 Javy Grimm MD [address] [place] [phone] PCP - General Family Medicine 08/19/23 Verena Rodriguez NP [address] [place] [phone] Nurse Practitioner Family Medicine 08/02/22 Verena Rodriguez NP [address] [place] [phone] Nurse Practitioner Family Medicine 08/19/23 Admission Specialist Relationship Specialty Start Date End Date Verena Rodriguez NP [address] [place] [phone] PCP - [facility] [employer] 06/02/23 Javy Grimm MD [address] [place] [phone] PCP - General Family Medicine 08/19/23 Verena Rodriguez NP [address] [place] [phone] Nurse Practitioner Family Medicine 08/02/22 Verena Rodriguez NP [address] [place] [phone] Nurse Practitioner Family Medicine 08/19/23 Admission Specialist Relationship Specialty Start Date End Date Verena Rodriguez NP [address] [place] [phone] PCP - [employer] 06/02/23 Javy Grimm MD [address] [place] [address] PCP - General Family Medicine 08/19/23 Verena Rodriguez NP [address] [place] [address] Nurse Practitioner Family Medicine 08/02/22 Verena Rodriguez NP [address] [place] [address] Nurse Practitioner Family Medicine 08/19/23 Admission Specialist Relationship Specialty Start Date End Date Verena Rodriguez NP [address] [place] [phone] PCP - [place] 06/02/23 Javy Grimm MD [address] [place] [phone] PCP - General Family Medicine 08/19/23 Verena oRdriguez NP [address] [place] [phone] Nurse Practitioner Family Medicine 08/02/22 Verena Rodriguez NP [address] [place] [phone] Nurse Practitioner Family Medicine 08/19/23 Admission Specialist Relationship Specialty Start Date End Date Verena Rodriguez NP [address] [place] [phone] PCP - [place] 06/02/23 Javy Grimm MD [address] [place] [phone] PCP - General Family Medicine 08/19/23 Verena Rodriguez NP [address] [place] [address] Nurse Practitioner Family Medicine 08/02/22 Verena Rodriguez NP [address] [place] [phone] Nurse Practitioner Family Medicine 08/19/23 Admission Specialist Relationship Specialty Start Date End Date Verena Rodriguez NP [address] [place] [phone] PCP - [employer] 06/02/23 Javy Grimm MD [address] [place] [phone] PCP - General Family Medicine 08/19/23 Verena Rodriguez NP [address] [place] [address] Nurse Practitioner Family Medicine 08/02/22 Verena Rodriguez NP [address] [place] [address] Nurse Practitioner Family Medicine 08/19/23 Admission Specialist Relationship Specialty Start Date End Date Verena Rodriguez CNP [address] [place] [address] PCP - General Family Medicine 07/05/24 Admission Specialist Relationship Specialty Start Date End Date Verena Rodriguez NP [address] [place] [phone] PCP - [employer] 06/02/23 Javy Grimm MD [address] [place] [phone] PCP - General Family Medicine 08/19/23 Verena Rodriguez NP [address] [place] [address] Nurse Practitioner Family Medicine 08/02/22 Verena Rodriguez NP [address] [place] [phone] Nurse Practitioner Family Medicine 08/19/23 Admission Specialist Relationship Specialty Start Date End Date Verena Rodriguez NP [address] [place] [phone] PCP - [place] [employer] 06/02/23 Javy Grimm MD [address] [place] [phone] PCP - General Family Medicine 08/19/23 Verena Rodriguez NP [address] [place] [address] Nurse Practitioner Family Medicine 08/02/22 Verena Rodriguez NP [address] [place] [address] Nurse Practitioner Family Medicine 08/19/23 Goals (unrecognized section and content) Goals may be documented in a n alternate section (unrecognized sect ion and content) No Status Records FoundNo Status Records FoundNo Status Records Found INFORMATION SOURCE (unrecogn ized section and content) DATE CREATED AUTHOR 04/16/2024 [facility] DATE CREATED AUTHOR AUTHOR'S ORGANIZ ATION 07/05/2024 [facility] DATE CREATED AUTHOR AUTHOR'S ORGANIZ ATION 07/17/2024 [facility] Source Comments (unrecognize d section and content) In the event this informatio n is protected by the Federal Confidentiality of Alcohol and Drug Abuse Patient Records regulations: The Federal rules restrict any use of the information to criminally investigate or prosecute any alcohol or drug abuse patient.[facility] FOR RECORDS PERTAINING TO PATIENTS WHO ARE [...] BE BASED ON THE PRIMARY CLINICAL RECORDS. [facility]. provides no warranty or guarantee of the accuracy or completeness of information in this document.
[2024-07-20 13:36] LABS: Basophils Percent Auto 0.4 % (0.2-2.0); Eosinophils Absolute Auto 0.1 10^3/uL (0.0-0.7); Eosinophils Percent Auto 0.5 % (0.9-7.0); Hematocrit 35.1 % (42.0-54.0); Hemoglobin 11.4 g/dL (14.0-18.0); Immature Granulocytes Pct Auto 0.9 % (0.0-0.5); Lymphocytes Absolute Auto 0.7 10^3/uL (1.2-3.8); Lymphocytes Percent Auto 6.7 % (20.5-60.0); Mean Corpuscular HGB Conc 32.5 g/dL (29.9-35.2); Mean Corpuscular Hemoglobin 29.6 pg (25.9-34.0); Mean Corpuscular Volume 91.2 fL (80.0-94.0); Mean Platelet Volume 9.4 fL (9.5-13.5); Monocytes Absolute Auto 0.8 10^3/uL (0.3-0.8); Monocytes Percent Auto 7.2 % (1.7-12.0); Neutrophils Percent Auto 84.3 % (43.0-75.0); Platelet Count 419 10^3/uL (150-450); Red Blood Count 3.85 10^6/uL (4.70-6.10); Red Cell Distribution Width 14.3 % (11.0-15.0); White Blood Count 10.7 10^3/uL (4.0-11.0)
== END 2024-07-20 13:08 | disposition home or self-care (01) ==
LOC: LAB 13:07
PROVIDERS: Family Provider Family Medicine; PCP Nurse Practitioner
DX: R78.81 Bacteremia (principal)
CPT/HCPCS: 36415; 85025

== ENCOUNTER 2024-07-24 12:50 | Outpatient (REF) | payer BC, SELFPAY ==
[2024-07-24 13:20] LABS: Basophils Absolute Auto 0.1 10^3/uL (0.0-0.1); Basophils Percent Auto 0.5 % (0.2-2.0); Eosinophils Absolute Auto 0.1 10^3/uL (0.0-0.7); Eosinophils Percent Auto 0.5 % (0.9-7.0); Hematocrit 35.7 % (42.0-54.0); Hemoglobin 11.4 g/dL (14.0-18.0); Immature Granulocytes Abs Auto 0.08 10^3/uL (0.00-0.03); Immature Granulocytes Pct Auto 0.8 % (0.0-0.5); Lymphocytes Absolute Auto 0.7 10^3/uL (1.2-3.8); Lymphocytes Percent Auto 7.7 % (20.5-60.0); Mean Corpuscular HGB Conc 31.9 g/dL (29.9-35.2); Mean Corpuscular Hemoglobin 29.6 pg (25.9-34.0); Mean Corpuscular Volume 92.7 fL (80.0-94.0); Mean Platelet Volume 9.1 fL (9.5-13.5); Monocytes Absolute Auto 0.5 10^3/uL (0.3-0.8); Monocytes Percent Auto 5.4 % (1.7-12.0); Neutrophils Absolute Auto 8.2 10^3/uL (1.4-6.5); Neutrophils Percent Auto 85.1 % (43.0-75.0); Platelet Count 332 10^3/uL (150-450); Red Blood Count 3.85 10^6/uL (4.70-6.10); Red Cell Distribution Width 14.6 % (11.0-15.0); White Blood Count 9.6 10^3/uL (4.0-11.0)
== END 2024-07-24 12:51 | disposition home or self-care (01) ==
LOC: LAB 12:50
PROVIDERS: Family Provider Family Medicine; PCP Nurse Practitioner
DX: R78.81 Bacteremia (principal)
CPT/HCPCS: 36415; 85025

== ENCOUNTER 2024-08-07 11:56 | Outpatient (REF) | payer BC, SELFPAY ==
[2024-08-07 12:23] LABS: Hematocrit 35.9 % (42.0-54.0); Hemoglobin 11.5 g/dL (14.0-18.0); Mean Corpuscular Hemoglobin 29.3 pg (25.9-34.0); Mean Corpuscular Volume 91.6 fL (80.0-94.0); Mean Platelet Volume 8.7 fL (9.5-13.5); Platelet Count 272 10^3/uL (150-450); Red Blood Count 3.92 10^6/uL (4.70-6.10); Red Cell Distribution Width 14.3 % (11.0-15.0); White Blood Count 5.2 10^3/uL (4.0-11.0)
[2024-08-07 13:36] LABS: Anisocytosis 1+; Basophils Abs Manual 0.15 10^3/uL (0.00-0.10); Lymphocytes Absolute Manual 0.83 10^3/uL (1.20-3.80); Monocytes Absolute Manual 0.31 10^3/uL (0.30-0.80); Ovalocytes 1+; Segmented Neut Absolute Manual 3.69 10^3/uL (1.4-6.5)
== END 2024-08-07 11:57 | disposition home or self-care (01) ==
LOC: LAB 11:56
PROVIDERS: Family Provider Family Medicine; PCP Nurse Practitioner
DX: A41.89 Other specified sepsis (principal)
CPT/HCPCS: 36415; 85007; 85027

== ENCOUNTER 2025-08-01 07:34 | Outpatient (OUT) | payer OTHER, SELFPAY ==
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
--- OUTSIDE RECORDS SUMMARY | 2025-08-01 07:39 | XMS_ITS | CCD ---
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 Resolved: 294015-25-4027JfzxmzeoEgivhui and strains (20 sources)Neck sprain; 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: [Sprain of joints and ligaments of unspecified parts of neck, initial encounter]Onset: [id number] Results Test NameValueInterpretationReference RangeFacilityCNOVon 52-06-0041EZHLNucxiq Visit (KOBESAV) FAIZA LOZANO ([id number]) 1980 [facility] Date Time Provider Department 10/24/24 3:20 PM AMANDA OVALLES During your visit today, we recorded the following information about you: Pulse Blood pressure Weight Height 90/minute 124/66 79.7 kg 1.753 m Amanda Ovalles MD 10/24/2024 3:49 PM Signed [facility] NOTE October 24, 2024 Faiza Lozano 44 year old Chief Complaint: post op, ileostomy closure Brief History: Faiza Lozano is a 44 year old man with h/o of crohns s/p open ileocolic resection in 2007, now s/p ex lap /resection of ileocolic anastomosis, Washout and drainage of liver/intra-abdominal abscess, Creation of end ileostomy on 07/06/24 for recurrence with perforation. He is now s/p end ileostomy closure on 10/11/24. Operative Findings: ~400cm of small bowel left, without evidence of crohn's Interval event: He reports that his bowel movements have slowed down slightly since the surgery, but he still experiences loose stools, which he notes was his baseline even before the surgery. He has approximately 4-5 bowel movements per day. He denies hematochezia, or chills. He is currently on a low-fiber diet and tolerating without issue. He reports good pain control . Patient is currently administering Lovenox injections as part of his postoperative care. Scheduled with Dr. Verito irving No past medical history on file. PAST SURGICAL HISTORY Procedure Laterality Date PAST SURGICAL HISTORY OF ex lap with ilestomy PICC LINE INSERT/CONSULT 07/11/2024 Current Outpatient Medications Medication Sig Dispense Refill acetaminophen (TYLENOL) 500 mg tablet Take 2 tablets by mouth every 8 hours as needed for pain. 30 tablet 0 enoxaparin (LOVENOX) 40 mg/0.4 mL Inject 0.4 mL subcutaneously every 24 hours for 21 days. 8.4 mL 0 lactobacillus rhamnosus (CULTURELLE) 10 billion cell capsule Take 1 capsule by mouth once daily. 30 capsule 0 Ibuprofen 200 mg cap Take 2 capsules by mouth every 8 hours as needed (for pain). 30 capsule 0 0.9 % sodium chloride (NACL 0.9%) infusion 1 liter over 4 hours 1000 mL 11 loperamide (IMODIUM) 2 mg cap(s) Take 2 capsules by mouth before meals and at bedtime. 240 capsule 5 FLUoxetine (PROZAC) 20 mg capsule Take 40 mg by mouth. polyethylene glycol 3350 (MIRALAX) 17 gram/dose powder Take 17 g by mouth once daily as needed for constipation for up to 14 days. Dissolve dose in 4 - 8 ounces of liquid and take as directed. (Patient not taking: Reported on 10/24/2024) 238 g 0 OLANZapine (ZYPREXA) 5 mg tablet Take 5 mg by mouth. No current facility-administered medications for this visit. ALLERGIES Allergen Reactions Sulfamethoxazole-Tr* Anaphylaxis FAMILY HISTORY Problem Relation Age of Onset Anesthesia Problems No Family History Social History Tobacco Use Smoking status: Never Smokeless tobacco: Never Substance Use Topics Alcohol use: Not Currently Drug use: Not Currently Physical Exam: BP 124/66 (BP Site: Left Arm, BP Position: Sitting, BP Cuff Size: Regular Adult) Pulse 90 Ht 175.3 cm (5' 9 ) Wt 79.7 kg (175 lb 11.3 oz) BMI 25.95 kg/m? General Appearance: Well appearing, alert, in no acute distress, well-hydrated, well nourished. Abdomen: soft, non distend, non tender. Midline laparotomy healing well. Prior stoma site without erythema/fluctuance or purulent drainage CT enterography 01/10/24 Scan on 07/05/2024 11:59 AM by Horace Wick: On License Of [facility] - CT ABD/Pelv Report, 01/10/24 Abnormal wall thickening and enhancement involving the distal ileum of approximately 8 to 9 cm in length to the level of the patient's anastomosis. Active Crohn's disease is suspected. No prestenotic dilation is seen to suggest significant stricture/obstruction. CT A/P 07/28/24 Significant improvement of the previously-seen intra-abdominal air and fluid collections, with only a tiny fluid collection of the previously-seen intrahepatic abscess remaining, and the small 1.6 cm collection of the previously-seen subhepatic collection remaining. No new suspicious organizing fluid collection or other acute finding seen. Colonoscopy 01/11/24 - Dr. Sellers Scan on 07/06/2024 9:50 AM by Danielle Gray: On License Of [facility] Colonoscopy report [id number] - Anastomosis in the right colon - Bulging lesion at hte anastomosis-suspect may be the invagination of the small bowel seen on recent CTE - biopsied - Ulcerated stricture at the anastomosis that could not be traversed with the colonoscope - Biopsies obtained at the stricture - Retroflexed views: small internal hemorrhoids Pathology Scan on 07/06/2024 9:51 AM by Danielle rGay: On License Of [facility] path report [id number] A. Small bowel, biopsy: Active chronic inflammation B. Lesion, anastomosis, biopsy: Active chronic inflammation with evidence of ulceration C. Colon, random biopsy: NO (more content not included)...NormalWayne [facility] metabolic 2000 panelon 75-49-9903Zdcmd gap [Moles/Vol]8 mmol/L Normal8-15FaGood Samaritan Medical CenterComment on above:Order Comment: Specimen Type: BLOOD SPECIMENOrdering Facility: [facility] Address:[address] [place], [place] [address]Performed By: #### 16858-1, 44205-5, 2777-1 ####RADHA LABORATORYCLIA [id number] [place] [address] [place] OF AMERICACalcium [Mass/Vol]8.3 mg/dLLow8.5-10.2Fmiravista behavioral health center HospitalComment on above: Order Comment: Specimen Type: BLOOD SPECIMENOrdering Facility: [facility] Address:[address] [place], [place] [address]Performed By: #### 41715- 2, , 2776-08 ####RADHA LABORATORYCLIA [id number] [place] [address] [place] OF AMERICAChloride [Moles/Vol]110 mmol/LHigh 98-107FaGood Samaritan Medical CenterComment on above:Order Comment: Specimen Type: BLOOD SPECIMENOrdering Facility: [facility] Address:[address] [place], [place] [address]Performed By: #### 76244-9, , 2776-08 ####RADHA LABORATORYCLIA [id number] [place] [address] [place] OF AMERICACO2 [Moles/Vol]24 mmol/EPlyqxb23-50Ecnwrdwa HospitalComment on above: Order Comment: Specimen Type: BLOOD SPECIMENOrdering Facility: [facility] Address:[address] [place], [place] [address]Performed By: #### 34372- 2, , 2776-08 ####RADHA LABORATORYCLIA [id number] [place] [address] [place] AMERICACreatinine [Mass/Vol]0.88 mg/dL Normal0.73-1.22[facility] HospitalComment on above:Order Comment: Specimen Type: BLOOD SPECIMENOrdering Facility: [facility] Address:[address] [place], [place] [address]Performed By: #### 15787-9, , 2776-08 ####RADHA LABORATORYCLIA [id number] [place] [address] [place] AMERICACreatinine and Glomerular filtration rate.predicted panel (S/P/Bld)108 mL/min/1.73m???Normal>=60FaPondville State Hospital on above: Order Comment: Specimen Type: BLOOD SPECIMENOrdering Facility: [facility] Address:[address] [place], [place] [address]Nlqnkx Comment: Estimated Glomerular Filtration Rate (eGFR) is calculated using the 2020 CKD-EPI cre atinine equation. This equation utilizes serum creatinine, sex, and age as parameters. The creatinine assay has traceable calibration to isotope dilution- mass spectrometry. Refer to KDIGO guidelines for clinical interpretation. In patients with unstable renal function, e.g. those with acute kidney injury, the eGFR may not accurately reflect actual GFR.Performed By: #### 26333-9, , 2776-08 ####RADHA LABORATORYCLIA [id number] [facility]END[facility] [place] [id number] [place] OF AMERICAGlucose [Mass/Vol]87 mg/uAHdyubb75-70VufoxsroBoston Hospital for Women on above:Order Comment: Specimen Type: BLOOD SPECIMENOrdering Facility: [facility] Address:[address] [place], [place] [address]Result Comment: The [place] Diabetes Association (ADA) provides guidance for cutoff values for fasting glucose and random glucose. The ADA defines fasting as no caloric intake for at least 8 hours. Fasting plasma glucose results between 100 to 125 mg/dL indicate increased risk for diabetes (prediab etes).Fasting plasma glucose results greater than or equal to 126 mg/dL meet the criteria for diagnosis of diabetes. In the absence of unequivocal hyperglycemia, results should be confirmed by repeattesting. In a patient with classic symptoms of hyperglycemia or hyperglycemic crisis, random plasmaglucose results greater than or equal to 200 mg/dL meet the criteria for diagnosis of diabetes.Reference: Standards of Medical Care in Diabetes 2016, [place] Diabetes Association. Diabetes Care. 2016.39(Suppl 1).Performed By: #### 27019- 2, , 2776-08 ####RADHA LABORATORYCLIA [id number] [facility] [place] [address] [place] AMERICAPotassium [Moles/Vol]3.9 mmol/L Normal3.7-5.1FPondville State Hospital on above:Order Comment: Specimen Type: BLOOD SPECIMENOrdering Facility: [facility] Address:[address] [place], [place] [address]Performed By: #### 92790-3, , 2776-08 ####RADHA LABORATORYCLIA [id number] [place] [address] [place] OF [facility] MEDICAL CENTERSodium [Moles/Vol]142 mmol/MUkmzqc015-950Pzbjhfqc HospitalComment on above:Order Comment: Specimen Type: BLOOD SPECIMENOrdering Facility: [facility] Address:[address] [place], [place] [address]Performed By: #### 82738-6, , 2776-08 ####RADHA LABORATORYCLIA [id number] [place] [address] [place] OF AMERICAUrea nitrogen [Mass/Vol]6 mg/dLLow9-24[facility] HospitalComment on above:Order Comment: Specimen Type: BLOOD SPECIMENOrdering Facility: [facility] Address:[address] [place], [place] [address]Performed By: #### 00430- 2, , 2776-08 ####RADHA LABORATORYCLIA [id number] [place] [id number] [facility] OF AMERICACBC panel Auto (Bld)on 10-14-2024 Erythrocyte distribution width (RBC) [Ratio]12.4 %Ljhhdq16.5-15.0Tryon HospitalComment on above:Order Comment: Specimen Type: BLOOD SPECIMENOrdering Facility: [facility] Address:[address] [place], [place] [address]Performed By: #### 38119-6 ####RADHA LABORATORYCLIA [id number] [place] [address] [place] OF AMERICAHematocrit (Bld) [Volume fraction]29.8 %Low39.0-51.0[facility] HospitalComment on above:Order Comment: Specimen Type: BLOOD SPECIMENOrdering Facility: [facility] Address:[address] [place], [place] [address]Performed By: #### 01898- 2 ####RADHA LABORATORYCLIA [id number] [address]LE[address] STREETHemoglobin (Bld) [Mass/Vol]9.9 g/dLLow13.0-17.0[facility] HospitalComment on above:Order Comment: Specimen Type: BLOOD SPECIMENOrdering Facility: [facility] Address:[address] [place], [place] [address]Performed By: #### 32134-0 ####RADHA LABORATORYCLIA [id number] [address] (RBC) [Entitic mass]29.6 gjWvgptt34.0-34.0[facility] HospitalComment on above:Order Comment: Specimen Type: BLOOD SPECIMENOrdering Facility: [facility] Address:[address] [place], [place] [address]Performed By: #### 04583-4 ####RADHA LABORATORYCLIA [id number] [address] (RBC) [Mass/Vol]33.2 g/bONleabo57.5-36.0[facility] HospitalComment on above:Order Comment: Specimen Type: BLOOD SPECIMENOrdering Facility: [facility] Address:[address] [place], [place] [address]Performed By: #### 19464-3 ####RADHA LABORATORYCLIA [id number] [address] (RBC) [Entitic vol] 89.2 yHNflfhp59.0-100.0[facility] HospitalComment on above:Order Comment: Specimen Type: BLOOD SPECIMENOrdering Facility: [facility] Address:[address] [place], [place] [address]Performed By: #### 30120-5 ####RADHA LABORATORYCLIA [id number] [address] RBC (Bld) [#/Vol]10*3/uLNormal<0.01[facility] HospitalComment on above:Order Comment: Specimen Type: BLOOD SPECIMENOrdering Facility: [facility] Address:[address] [place], [place] [address]Performed By: #### 28287-8 ####MARILEERAYMUNDO LABORATORYCLIA [id number] [place] [id number] [facility] OF ASHTABULA COUNTY MEDICAL CENTERPlatelet mean volume (Bld) [Entitic vol]9.3 fL Normal9.0-12.7Fmiravista behavioral health center HospitalComment on above:Order Comment: Specimen Type: BLOOD SPECIMENOrdering Facility: [facility] Address:[address] [place], [place] [address]Performed By: #### 21857-0 ####RADHA LABORATORYCLIA [id number] [place] [address] [place] Platelets (Bld) [#/Vol]210 10*3/gRZkmvvs233-888Segyfvfa HospitalComment on above:Order Comment: Specimen Type: BLOOD SPECIMENOrdering Facility: [facility] Address:[address] [place], [place] [address]Performed By: #### 80109-4 ####MARILEEMOUNT [facility] LABORATORYCLIA [id number] [place] [address] [place] ASHTABUL[facility] COUNTY MEDICAL CENTERRBC (Bld) [#/Vol]3.34 10*6/uLLow4.20-6.00[facility] HospitalComment on above:Order Comment: Specimen Type: BLOOD SPECIMENOrdering Facility: [facility] Address:[address] [place], [place] [address]Performed By: #### 45690-7 ####RADHA LABORATORYCLIA [id number] [place] [address] [place] AS[facility]UL[facility] COUNTY MEDICAL CENTERWBC (Bld) [#/Vol]4.60 10*3/uLNormal3.70-11.00[facility] HospitalComment on above:Order Comment: Specimen Type: BLOOD SPECIMENOrdering Facility: [facility] Address:[address] [place], [place] [address]Performed By: #### 91595-5 ####RADHA LABORATORYCLIA [id number] [place] [id number] [facility] NURSING HOMECNCOon 85-22-3823BYTXElhyoj TextNormalTryon HospitalCNDSon 10-14-2024 CNDSNormRobert Breck [facility] HospitalCONSULT PROGon 09-82-1200UATRTIS PROGNormalTryon HospitalMagnesium SerPl-mCncon 44-31-2033Gxggmbxxx [Mass/Vol]1.9 mg/dLNormal 1.7-2.3Fmiravista behavioral health center HospitalComment on above:Order Comment: Specimen Type: BLOOD SPECIMENOrdering Facility: [facility] Address:[address] [place], [place] [address]Performed By: #### 92722-6, 72079-8, 2777-1 ####RADHA LABORATORYCLIA [id number] [place] [address] [place] AMERICAPhosphate SerPl-mCncon 19-52-5366Mnpmtznbv [Mass/Vol]3.7 mg/dLNormal 2.7-4.8Tryon HospitalComment on above:Order Comment: Specimen Type: BLOOD SPECIMENOrdering Facility: [facility] Address:[address] [place], [place] [address]Performed By: #### 84775-4, 51495-1, 2777-1 ####RADHA LABORATORYCLIA [id number] [place] [id number] [place] OF AMERICABasic metabolic 2000 panelon 88-76-5533Prxtl gap [Moles/Vol]8 mmol/L Normal03-16[facility] HospitalComment on above:Order Comment: Specimen Type: BLOOD SPECIMENOrdering Facility: [facility] Address:[address] [place], [place] [address]Performed By: #### 2777-1, 47677-9, 08654-2 ####RADHA LABORATORYCLIA [id number] [place] [id number] [place] AMERICACalcium [Mass/Vol]8.5 mg/dLNormal8.5-10.2Fmiravista behavioral health center HospitalComment on above:Order Comment: Specimen Type: BLOOD SPECIMENOrdering Facility: [facility] Address:[address] [place], [place] [address]Performed By: #### 2777-1, 63114-0, ####RADHA LABORATORYCLIA [id number] [place] [address] [place] AMERICAChloride [Moles/Vol]103 mmol/L Xmcxgj07-740Jkpovqpi HospitalComment on above:Order Comment: Specimen Type: BLOOD SPECIMENOrdering Facility: [facility] Address:[address] [place], [place] [address]Performed By: #### 2777-1, 23081-0, ####RADHA LABORATORYCLIA [id number] [place] [address] [place] AMERICACO2 [Moles/Vol]28 mmol/DJahlkg42-64Wuh[facility]zm[facility] Comment on above:Order Comment: Specimen Type: BLOOD SPECIMENOrdering Facility: [facility] Address:[address] [place] [address] Performed By: #### 2777-1, 74832-8, ####RADHA LABORATORYCLIA [id number] [place] [address] [place] Creatinine [Mass/Vol]0.93 mg/dLNormal0.73-1.22[facility] HospitalComment on above: Order Comment: Specimen Type: BLOOD SPECIMENOrdering Facility: [facility] Address:[address] [place], [place] [address]Performed By: #### 2777- 1, 99537-0, ####RADHA LABORATORYCLIA [id number] [place] [address] [place] AMERICACreatinine and Glomerular filtration rate.predicted panel (S/P/Bld)103 mL/min/1.73m???Normal>=60FaGood Samaritan Medical CenterComment on above:Order Comment: Specimen Type: BLOOD SPECIMENOrdering Facility: [facility] Address:[address] [place], [place] [address]Result Comment: Estimated Glomerular Filtration Rate (eGFR) is [...] accurately reflect actual GFR. Performed By: #### 2777-1, 08805-8, ####RADHA LABORATORYCLIA [id number] [place] [id number] [place] AMERICAGlucose [Mass/Vol]89 mg/wTZmrjrd68-01Mgruhxsb HospitalComment on above:Order Comment: Specimen Type: BLOOD SPECIMENOrdering Facility: [facility] Address:[address] [place], [place] [address]Result Comment: The [place] Diabetes Association (ADA) provides guidance for cutoff values for fasting glucose and random glucose. The ADA defines fasting as no caloric intake for at least 8 hours. Fasting plasma glucose results between 100 to 125 mg/dL indicate increased risk for diabetes (prediabetes).Fasting plasma glucose results greater than or equal to 126 mg/dL meet the criteria for diagnosis of diabetes. In the absence of unequivocal hyperglycemia, results should be confirmed by repeat testing. In a patient with classic symptoms of hyperglycemia or hyperglycemic crisis, random plasmaglucose results greater than or equal to 200 mg/dL meet the criteria for diagnosis of diabetes.Reference: Standards of Medical Care in Diabetes 2016, [place] Diabetes Association. Diabetes Care. 2016.39(Suppl 1). Performed By: #### 2777-1, 44482-6, ####RADHA LABORATORYCLIA [id number] [place] [id number] [place] Potassium [Moles/Vol]3.8 mmol/LNormal3.7-5.1FWorcester Recovery Center and HospitalComment on above: Order Comment: Specimen Type: BLOOD SPECIMENOrdering Facility: [facility] Address:[address] [place] [id number] By: #### 2777- 1, 48167-1, ####RADHA LABORATORYCLIA [id number] [place] [address] [place] AMERICASodium [Moles/Vol]139 mmol/LNormal 136-144FaGood Samaritan Medical CenterComment on above:Order Comment: Specimen Type: BLOOD SPECIMENOrdering Facility: [facility] Address:[address] [place], [place] [address]Performed By: #### 2777-1, 07462-3, ####RADHA LABORATORYCLIA [id number] [place] [address] [place] AMERICAUrea nitrogen [Mass/Vol]5 mg/dLLow9-24[facility] HospitalComment on above: Order Comment: Specimen Type: BLOOD SPECIMENOrdering Facility: [facility] Address:[address] [place], [place] [address]Performed By: #### 2777- 1, 09723-4, ####RADHA LABORATORYCLIA [id number] [place] [id number] [facility] OF AMERICACBC panel Auto (Bld)on 10-13-2024 Erythrocyte distribution width (RBC) [Ratio]12.5 %Jpzfli48.5-15.0[facility] HospitalComment on above:Order Comment: Specimen Type: BLOOD SPECIMENOrdering Facility: [facility] Address:[address] [place], [place] [address]Performed By: #### 60470-6 ####RADHA LABORATORYCLIA [id number] [place] [address] [place] AMERICAHematocrit (Bld) [Volume fraction]32.8 %Low39.0-51.0[facility] HospitalComment on above:Order Comment: Specimen Type: BLOOD SPECIMENOrdering Facility: [facility] Address:[address] [place], [place] [address]Performed By: #### 58635- 2 ####RADHA LABORATORYCLIA [id number] [place] [address] [place] AMERICAHemoglobin (Bld) [Mass/Vol]11.0 g/dLLow13.0-17.0[facility] HospitalComment on above:Order Comment: Specimen Type: BLOOD SPECIMENOrdering Facility: [facility] Address:[address] [place], [place] [address]Performed By: #### 48226-1 ####RADHA LABORATORYCLIA [id number] [address] (RBC) [Entitic mass]30.0 inCbaglc99.0-34.0[facility] HospitalComment on above:Order Comment: Specimen Type: BLOOD SPECIMENOrdering Facility: [facility] Address:[address] [place], [place] [address]Performed By: #### 20397-8 ####RADHA LABORATORYCLIA [id number] [address] (RBC) [Mass/Vol]33.5 g/xLBawpzz11.5-36.0[facility] HospitalComment on above:Order Comment: Specimen Type: BLOOD SPECIMENOrdering Facility: [facility] Address:[address] [place], [place] [address]Performed By: #### 11181-2 ####RADHA LABORATORYCLIA [id number] [address] (RBC) [Entitic vol] 89.4 aVIpgliv69.0-100.0[facility] HospitalComment on above:Order Comment: Specimen Type: BLOOD SPECIMENOrdering Facility: [facility] Address:[address] [place], [place] [address]Performed By: #### 13386-0 ####RADHA LABORATORYCLIA [id number] [address]ucleated RBC (Bld) [#/Vol]10*3/uLNormal<0.01[facility] HospitalComment on above:Order Comment: Specimen Type: BLOOD SPECIMENOrdering Facility: [facility] Address:[address] [place], [place] [address]Performed By: #### 37564-4 ####RADHA LABORATORYCLIA [id number] [address]ETPlatelet mean volume (Bld) [Entitic vol]9.6 fL Normal9.0-12.7Fmiravista behavioral health center HospitalComment on above:Order Comment: Specimen Type: BLOOD SPECIMENOrdering Facility: [facility] Address:[address] [place], [place] [address]Performed By: #### 74966-3 ####MARILEERAYMUNDO LABORATORYCLIA [id number] [place] [address] [facility] Platelets (Bld) [#/Vol]252 10*3/yMKxehua034-535Ijjodslf HospitalComment on above:Order Comment: Specimen Type: BLOOD SPECIMENOrdering Facility: [facility] Address:[address] [place], [place] [address]Performed By: #### 32334-0 ####RADHA LABORATORYCLIA [id number] [place] [address] [facility] NUR[facility] HOMERBC (d) [#/Vol]3.67 10*6/uLLow4.20-6.00[facility] HospitalComment on above:Order Comment: Specimen Type: BLOOD SPECIMENOrdering Facility: [facility] Address:[address] [place], [place] [address]Performed By: #### 98049-7 ####RADHA LABORATORYCLIA [id number] [place] [address] [facility]UR[facility] HOMEWBC (d) [#/Vol]8.04 10*3/uLNormal3.70-11.00[facility] HospitalComment on above:Order Comment: Specimen Type: BLOOD SPECIMENOrdering Facility: [facility] Address:[address] [place], [place] [address]Performed By: #### 15664-6 ####MARILEERAYMUNDO LABORATORYCLIA [id number] [place] [id number] [facility]UR[facility] HOMECONSULT PROGon 03-42-5566IVGNUEG PROGNormalTryon HospitalMagnesium SerPl-mCncon 54-88-2856Jvnkucgen [Mass/Vol]1.9 mg/dLNormal1.7-2.3Fmiravista behavioral health center HospitalComment on above:Order Comment: Specimen Type: BLOOD SPECIMENOrdering Facility: [facility] Address:[address] [place], [place] [address]Performed By: #### 2777-1, 74994-8, ####RADHA LABORATORYCLIA [id number] [place] [id number] [place] OF AMERICANURSING PROGon 02-53-2968BXFSXHU PROGNormalTryon HospitalPhosphate SerPl-mCncon 43-39-5113Gkygwfqxo [Mass/Vol]3.1 mg/dLNormal2.7-4.8Tryon HospitalComment on above:Order Comment: Specimen Type: BLOOD SPECIMENOrdering Facility: [facility] Address:[address] [place], [place] [address]Performed By: #### 2777-1, 33288-9, ####RADHA LABORATORYCLIA [id number] [place] [id number] [place] OF AMERICABasic metabolic 2000 panelon 15-36-8883Jnfiy gap [Moles/Vol]8 mmol/LNormal8-15FaGood Samaritan Medical CenterComment on above:Order Comment: Specimen Type: BLOOD SPECIMENOrdering Facility: [facility] Address:[address] [place], [place] [address]Performed By: #### 67650-6, 277-1, 89617-7 ####RADHA LABORATORYCLIA [id number] [place] [address] [place] OF AMERICACalcium [Mass/Vol]8.5 mg/dL Normal8.5-10.2Fmiravista behavioral health center HospitalComment on above:Order Comment: Specimen Type: BLOOD SPECIMENOrdering Facility: [facility] Address:[address] [place], [place] [address]Performed By: #### 56859-2, 277-1, 96965-3 ####RADHA LABORATORYCLIA [id number] [place] [address] [place] OF AMERICAChloride [Moles/Vol]106 mmol/KEfeuux22-109Qeshoxyi HospitalComment on above:Order Comment: Specimen Type: BLOOD SPECIMENOrdering Facility: [facility] Address:[address] [place], [place] [address]Performed By: #### 08277-0, 2776-08, ####MARILEERAYMUNDO LABORATORYCLIA [id number] [place] [address] [place] AMERICACO2 [Moles/Vol]28 mmol/HGxyzwe12-54Qinygonz HospitalComment on above:Order Comment: Specimen Type: BLOOD SPECIMENOrdering Facility: [facility] Address:[address] [place], [place] [address]Performed By: #### 16938-9, 2776-08, ####[facility]ILEEM[facility] LABORATORYCLIA [id number] [place] [address] [place] OF AMERICACreatinine [Mass/Vol]1.03 mg/dLNormal0.73-1.22 [facility] HospitalComment on above:Order Comment: Specimen Type: BLOOD SPECIMENOrdering Facility: [facility] Address:[address] [place], [place] [address]Performed By: #### 53008-3, 2776-08, ####[facility]ILEEM[facility] LABORATORYCLIA [id number] [place] [address] [place] AMERICACreatinine and Glomerular filtration rate.predicted panel (S/P/Bld)91 mL/min/1.73m???Normal>=60[facility] HospitalComment on above:Order Comment: Specimen Type: BLOOD SPECIMENOrdering Facility: [facility] Address:[address] [place], [place] [address]Result Comment: Estimated Glomerular Filtration Rate (eGFR) is calculated using the 2020 CKD-EPI creatinine equation. This equation utilizes serum creatinine, sex, and age as parameters. The creatinine assay has traceable calibration to isotope dilution-mass spectrometry. Refer to KDIGO guidelines for clinical interpretation. In patients with unstable renal function, e.g. those with acute kidney injury, the eGFR may not accurately reflect actual GFR.Performed By: #### 79595-0, 2776-08, 79437-0 ####RADHA LABORATORYCLIA [id number] [place] [address] [place] AMERICAGlucose [Mass/Vol]90 mg/nKQtufhc72-73Nftzfusq Hospital Comment on above:Order Comment: Specimen Type: BLOOD SPECIMENOrdering Facility: [facility] Address:[address] [place] [address]Zpjpbq Comment: The [place] Diabetes Association (ADA) provides guidance for cutoff values for fasting glucose and random glucose. The ADA defines fasting as no caloric intake for at least 8 hours. Fasting plasma glucose results between 100 to 125 mg/dL indicate increased risk for diabetes (prediabetes).Fasting plasma glucose results greater than or equal to 126 mg/dL meet the criteria for diagno sis of diabetes. In the absence of unequivocal hyperglycemia, results should be confirmed by repeattesting. In a patient with classic symptoms of hyperglycemia or hyperglycemic crisis, random plasmaglucose results greater than or equal to 200 mg/dL meet the criteria for diagnosis of diabetes.Reference: Standards of Medical Care in Diabetes 2016, [place] Diabetes Association. Diabetes Care. 2016.39(Suppl 1).Performed By: #### 61552-0, 2777-, 69892-5 ####RADHA LABORATORYCLIA [id number] [place] [address] [place] AMERICAPotassium [Moles/Vol]3.8 mmol/LNormal3.7-5.1Fmiravista behavioral health center HospitalComment on above:Order Comment: Specimen Type: BLOOD SPECIMENOrdering Facility: [facility] Address:[address] [place], [place] [address]Performed By: #### 52570-0, 2777-, 76782-7 ####RADHA LABORATORYCLIA [id number] [place] [address] [place] AMERICASodium [Moles/Vol]142 mmol/L Izcmfb457-832Hyblbeir HospitalComment on above:Order Comment: Specimen Type: BLOOD SPECIMENOrdering Facility: [facility] Address:[address] [place] [address]Sfmqmozgp By: #### 50401-7, 27701-30, 90029-6 ####RADHA LABORATORYCLIA [id number] [place] [address] [place] AMERICAUrea nitrogen [Mass/Vol]9 mg/dLNormal9-24[facility] HospitalComment on above:Order Comment: Specimen Type: BLOOD SPECIMENOrdering Facility: [facility] Address:[address] [place], [place] [address]Performed By: #### 58503-6, 2777-1, 83346-5 ####RADHA LABORATORYCLIA [id number] [place] [address] [place] OF AMERICACASE MGT INIT ASSESon 13-48-5180GRXU MGT INIT Essex HospitalCBC panel Auto (Bld)on 65-45-6741Zdmbnamegdn distribution width (RBC) [Ratio]12.7 %Normal 11.5-15.0Tryon HospitalComment on above:Order Comment: Specimen Type: BLOOD SPECIMENOrdering Facility: [facility] Address:[address] [place], [place] [address]Performed By: #### 11420-8 ####RADHA LABORATORYCLIA [id number] [place] [address] [facility] Hematocrit (Bld) [Volume fraction]30.5 %Low39.0-51.0Tryon HospitalComment on above:Order Comment: Specimen Type: BLOOD SPECIMENOrdering Facility: [facility] Address:[address] [place], [place] [address]Performed By: #### 64006-3 ####RADHA LABORATORYCLIA [id number] [place] [address] [place] OF [facility] COUNTY MEDICAL CENTERHemoglobin (Bld) [Mass/Vol]10.7 g/dLLow13.0-17.0 [facility] HospitalComment on above:Order Comment: Specimen Type: BLOOD SPECIMENOrdering Facility: [facility] Address:[address] [place], [place] [address]Performed By: #### 21764-9 ####RADHA LABORATORYCLIA [id number] [place] [address] [place] OF AMERICAMCH (RBC) [Entitic mass]30.0 ubXvneuo76.0-34.0Tryon HospitalComment on above: Order Comment: Specimen Type: BLOOD SPECIMENOrdering Facility: [facility] Address:[address] [place], [place] [address]Performed By: #### 29244- 2 ####RADHA LABORATORYCLIA [id number] [place] [address] [facility] HOMEMCHC (RBC) [Mass/Vol]35.1 g/jAEgmvkj65.5-36.0[facility] HospitalComment on above:Order Comment: Specimen Type: BLOOD SPECIMENOrdering Facility: [facility] Address:[address] [place], [place] [address]Performed By: #### 24644-1 ####RADHA LABORATORYCLIA [id number] [address]ETMCV (RBC) [Entitic vol] 85.4 tSFijddr43.0-100.0[facility] HospitalComment on above:Order Comment: Specimen Type: BLOOD SPECIMENOrdering Facility: [facility] Address:[address] [place], [place] [address]Performed By: #### 06138-8 ####RADHA LABORATORYCLIA [id number] [address]ETucleated RBC (Bld) [#/Vol]10*3/uLNormal<0.01[facility] HospitalComment on above:Order Comment: Specimen Type: BLOOD SPECIMENOrdering Facility: [facility] Address:[address] [place], [place] [address]Performed By: #### 19751-8 ####RADHA LABORATORYCLIA [id number] [place] [address] [facility]UR[facility] HOMEPlatelet mean volume (Bld) [Entitic vol]9.2 fL Normal9.0-12.7Fmiravista behavioral health center HospitalComment on above:Order Comment: Specimen Type: BLOOD SPECIMENOrdering Facility: [facility] Address:[address] [place], [place] [address]Performed By: #### 17037-7 ####RADHA LABORATORYCLIA [id number] [place] [address] [facility] Platelets (Bld) [#/Vol]275 10*3/sUFakcxg117-911Dnwpxavp HospitalComment on above:Order Comment: Specimen Type: BLOOD SPECIMENOrdering Facility: [facility] Address:[address] [place], [place] [address]Performed By: #### 83281-5 ####RADHA LABORATORYCLIA [id number] [place] [address] [facility] HOMERBC (Bld) [#/Vol]3.57 10*6/uLLow4.20-6.00Tryon HospitalComment on above:Order Comment: Specimen Type: BLOOD SPECIMENOrdering Facility: [facility] Address:[address] [place], [place] [address]Performed By: #### 20816-0 ####RADHA LABORATORYCLIA [id number] [address] OF ASHTABULA COUNTY MEDICAL CENTERWBC (Bld) [#/Vol]9.35 10*3/uLNormal3.70-11.00[facility] HospitalComment on above:Order Comment: Specimen Type: BLOOD SPECIMENOrdering Facility: [facility] Address:[address] [place], [place] [address]Performed By: #### 32877-4 ####RADHA LABORATORYCLIA [id number] [address] STATES [facility] L[facility] LOURDES MEM[facility]IAL HOSPITALErythrocyte distribution width (RBC) [Ratio]12.6 %Ysmuqy67.5-15.0 [facility] on above:Order Comment: Specimen Type: BLOOD SPECIMENOrdering Facility: [facility] Address:[address] [place], [place] [address]Performed By: #### 29389-3 ####RADHA LABORATORYCLIA [id number] [place] [address] [facility] Hematocrit (Bld) [Volume fraction]32.2 %Low39.0-51.0[facility]on HospitalComment on above:Order Comment: Specimen Type: BLOOD SPECIMENOrdering Facility: [facility] Address:[address] [place], [place] [address]Performed By: #### 18905-1 ####RADHA LABORATORYCLIA [id number] [address]ETHemoglobin (Bld) [Mass/Vol]11.0 g/dLLow13.0-17.0 Tryon HospitalComment on above:Order Comment: Specimen Type: BLOOD SPECIMENOrdering Facility: [facility] Address:[address] [place], [place] [address]Performed By: #### 98177-1 ####RADHA LABORATORYCLIA [id number] [address] (RBC) [Entitic mass]29.2 lyIhbseu63.0-34.0[facility] HospitalComment on above: Order Comment: Specimen Type: BLOOD SPECIMENOrdering Facility: [facility] Address:[address] [place], [place] [address]Performed By: #### 27791- 2 ####RADHA LABORATORYCLIA [id number] [address]HC (RBC) [Mass/Vol]34.2 g/dDDlnwxp23.5-36.0Tryon HospitalComment on above:Order Comment: Specimen Type: BLOOD SPECIMENOrdering Facility: [facility] Address:[address] [place], [place] [address]Performed By: #### 64910-2 ####RADHA LABORATORYCLIA [id number] [address] (RBC) [Entitic vol] 85.4 fENmgooq00.0-100.0[facility] HospitalComment on above:Order Comment: Specimen Type: BLOOD SPECIMENOrdering Facility: [facility] Address:[address] [place], [place] [address]Performed By: #### 77334-7 ####RADHA LABORATORYCLIA [id number] [address] RBC (Bld) [#/Vol]10*3/uLNormal<0.01[facility] HospitalComment on above:Order Comment: Specimen Type: BLOOD SPECIMENOrdering Facility: [facility] Address:[address] [place], [place] [address]Performed By: #### 22770-3 ####MARILEERAYMUNDO LABORATORYCLIA [id number] [place] [address] [facility] OF AS[facility]UL[facility] COUNTY MEDICAL CENTERPlatelet mean volume (Bld) [Entitic vol]9.5 fL Normal9.0-12.7Fmiravista behavioral health center HospitalComment on above:Order Comment: Specimen Type: BLOOD SPECIMENOrdering Facility: [facility] Address:[address] [place], [place] [address]Performed By: #### 77018-5 ####RADHA LABORATORYCLIA [id number] [place] [address] [place] Platelets (Bld) [#/Vol]275 10*3/sPHawmbi620-461Ottmhjrh HospitalComment on above:Order Comment: Specimen Type: BLOOD SPECIMENOrdering Facility: [facility] Address:[address] [place], [place] [address]Performed By: #### 75816-1 ####RADHA LABORATORYCLIA [id number] [place] [address] [place] OF AMERICARBC (Bld) [#/Vol]3.77 10*6/uLLow4.20-6.00[facility] HospitalComment on above:Order Comment: Specimen Type: BLOOD SPECIMENOrdering Facility: [facility] Address:[address] [place], [place] [address]Performed By: #### 54034-3 ####RADHA LABORATORYCLIA [id number] [place] [address] [place] OF AS[facility] COUNTY MEDICAL CENTERWBC (Bld) [#/Vol]8.39 10*3/uLNormal3.70-11.00[facility] HospitalComment on above:Order Comment: Specimen Type: BLOOD SPECIMENOrdering Facility: [facility] Address:[address] [place], [place] [address]Performed By: #### 34361-3 ####RADHA LABORATORYCLIA [id number] [place] [address] [facility] HOMECONSULT PROGon 11-54-7979KBGINTI PROGNormalTryon HospitalMagnesium SerPl-mCncon 51-40-4648Oamkzdbcx [Mass/Vol]1.5 mg/dLLow1.7-2.3FWorcester Recovery Center and [facility] Comment on above:Order Comment: Specimen Type: BLOOD SPECIMENOrdering Facility: [facility] Address:[address] [place] [address] Performed By: #### 88856-6, 2777-1, 55116-0 ####RADHA LABORATORYCLIA [id number] [place] [address] [place] AMERICAPT EDon 34-15-5279DK EDNormSaint Anne's HospitalPhosphate SerPl-mCmaon 10-12-2024 Phosphate [Mass/Vol]3.6 mg/dLNormal2.7-4.8[facility] HospitalComment on above: Order Comment: Specimen Type: BLOOD SPECIMENOrdering Facility: [facility] Address:[address] [place], [place] [address]Performed By: #### 63933- 9, 2777-1, 51497-7 ####RADHA LABORATORYCLIA [id number] [address] STATES OF ASHTABULA COUNTY MEDICAL CENTERANES POSTPROC EVALon 68-62-5970XWSF POSTPROC EVALNoPondville State Hospital HospitalANES PRE-OPon 16-55-2406SETJ PRE-OPNormal [facility] HospitalBRIEF OP NOTon 69-28-0853IIYTB OP [facility] NURSING PROGon 62-55-1668QGLXGRZ PROGNormalTryon HospitalNURSING PROGNormal Tryon HospitalOPERATIVE NOon 01-34-8314XUAYNRQHW NONormalVal[facility] Pathology biopsy report Francisco (Tiss)on 29-39-4620TR DISCLAIMERNoTaunton State HospitalComment on above:Order Comment: Specimen Type: TISSUE SPECIMENOrdering Facility: [facility] Address: [address] [place], [place] [address]Result Comment: Laboratory Developed Test (LDT) Disclaimer:Performance characteristics of immunohistochemical, immunofluorescent, and chromogenic in- situ hybridization tests have been determined by the performing laboratory within [facility]'s Yamil Croftch Pathology and Laboratory Medicine Department ([facility], [facility], [facility], [facility], [facility], [facility], or [facility]) in a manner consistent with CLIA requirements. One or more of these tests may not have been cleared or approved by the FDA. RT-PLM is regulated under CLIA as qualified to perform high-complexity testing. These tests are used for clinical purposes. These should not be regarded as investigational or for research. Positive and negative controls stain appropriately.Performed By: #### 50372-6 ####RADHA LABORATORYCLIA [id number] [address]CASE REPORTNormalValley Springs Behavioral Health HospitalComment on above:Order Comment: Specimen Type: TISSUE SPECIMENOrdering Facility: [facility] Address: [address] [place], [place] [address]Result Comment: Surgical Pathology Report Case: [id number] Provider: Amanda Ovalles MD Collected: 10/11/2024 09:07 AMOrdering Location: [facility] Received: 10/11/2024 11:44 AM O perating RoomPathologist: Faiza Torres MDSpecimen: Small Bowel, Ileostomy, ileostomy trimingsPerformed By: #### 42168-8 ####RADHA [facility] HOSPITALCLIA [id number] [address] CLINICAL HISTORYNormSaint Anne's HospitalComment on above:Order Comment: Specimen Type: TISSUE SPECIMENOrdering Facility: [facility] Address: [address] [place] [id number] Comment: Pre-op diagnosis:Attention to ileostomy (HCC) [Z43.2]Performed By: #### 68326-8 ####RADHA LABORATORYCLIA [id number] [address]FINAL DIAGNOSISNormalValley Springs Behavioral Health HospitalComment on above:Order Comment: Specimen Type: TISSUE SPECIMENOrdering Facility: [facility] Address: [address] [place], [place] [address]Result Comment: Ileostomy, excision:- Enterocutaneous tissue with focal nonspecific inflammatory changes and mucosal erosion, consistent with ostomy site.JEL 10/13/2024 at 1312 EDTPerformed By: #### 18910-5 ####POTRERO LABORATORYCLIA [id number] [address]FINAL PERFORMING LABWestborough Behavioral Healthcare Hospital HospitalComment on above:Order Comment: Specimen Type: TISSUE SPECIMENOrdering Facility: [facility] Address: [address] [place], [place] [address]Result Comment: Diagnostic interpretation performed at: [facility], [address] [place] [address] CLIA# [id number] Director: Ludin Alba MDPerformed By: #### 99239-7 ####POTRERO LABORATORYCLIA [id number] [address]GROSS Martha's Vineyard HospitalComment on above:Order Comment: Specimen Type: TISSUE SPECIMENOrdering Facility: [facility] Address: [address] [place] [address] Comment: A. Small Bowel, IleostomyReceived in formalin designated ileostomy trimming is anostomy specimen the measures 3.3 cm in length and 3.2 cm in diameter. Both ends are open. Surrounding one end is a jama-moon rim of skin. The mucosa is prolapsed through the ostomy site. The mucosa ispink-jama and smooth with a wall thickness of 0.4 cm. Drain Tile Machine Operator sections are submitted in one cassette.WE October 11, 2024 1:14 PMGross examination performed at [facility], [address] [place], [place] [address]Performed By: #### 15390-2 ####POTRERO LABORATORYCLIA [id number] [place] [address] [place] Comprehensive metabolic 2000 panelon 06-58-3960Vrtlbsr [Mass/Vol]3.8 g/dLLow 3.9-4.9CGenesis HospitalCommymichigan medical center sault on above:Order Comment: Specimen Type: BLOOD SPECIMENOrdering Facility: [facility] Address:[address] [place], [place] [address]Performed By: #### 66710-4 ####[facility] LABCLIA [id number] [place], [place] [address]XHW [Catalytic activity/Vol]81 U/FGebiwx86-176CizdczjwnCrystal Clinic Orthopedic Center on above:Order Comment: Specimen Type: BLOOD SPECIMENOrdering Facility: [facility] Address:[address] [place], [place] [address]Performed By: #### 48339-2 ####[facility] LABCLIA [id number] [place], [place] [address]SXK [Catalytic activity/Vol]39 U/ZFqcfgo29-56IccdlopbfCrystal Clinic Orthopedic Center on above:Order Comment: Specimen Type: BLOOD SPECIMENOrdering Facility: [facility] Address:[address] [place], [place] [address]Performed By: #### 62248-8 ####[facility] LABCLIA [id number] [facility] [place], [place] [address]Cssfy gap [Moles/Vol]10 mmol/LNormal8-15[facility] on above:Order Comment: Specimen Type: BLOOD SPECIMENOrdering Facility: [facility] Address:[address] [place], [place] [address]Performed By: #### 67663- 8 ####[facility] LABCLIA [id number] JOSE MANUEL GRAVESDIGNITY HEALTH ARIZONA SPECIALTY HOSPITALLYLYTURTLET[place], [place] [address]ZXI [Catalytic activity/Vol]29 U/KSexloe70-16CdpfljlaaCrystal Clinic Orthopedic Center on above:Order Comment: Specimen Type: BLOOD SPECIMENOrdering Facility: [facility] Address:[address] [place], [place] [address]Performed By: #### 70565-1 ####[facility] LABCLIA [id number] [facility] [place], [place] [address]Ubwmabtih [Mass/Vol]0.2 mg/dLNormal0.2-1.3COhioHealth [facility] on above:Order Comment: Specimen Type: BLOOD SPECIMENOrdering Facility: [facility] Address:[address] [place], [place] [address]Performed By: #### 48778- 8 ####[facility] LABCLIA [id number] [facility] CENTEREKATERINA [facility] [place], [place] [address]Yndorhb [Mass/Vol]8.6 mg/dLNormal8.5-10.2COhioHealth [facility] on above:Order Comment: Specimen Type: BLOOD SPECIMENOrdering Facility: [facility] Address:[address] [place], [place] [address]Performed By: #### 52350-3 ####[facility] LABCLIA [id number] [facility] MED[facility] CENTERDANNAHAR[place], [place] [address]Vxcslltx [Moles/Vol]111 mmol/L Swnz59-154InaysxuglCrystal Clinic Orthopedic Center on above:Order Comment: Specimen Type: BLOOD SPECIMENOrdering Facility: [facility] Address:[address] [place], [place] [address]Performed By: #### 55474-1 ####[facility] LABCLIA [id number] [facility] [place] [address] CO2 [Moles/Vol]23 mmol/MYxcpkr20-86VpueccmfhCrystal Clinic Orthopedic Center on above: Order Comment: Specimen Type: BLOOD SPECIMENOrdering Facility: [facility] Address:[address] [place], [place] [address]Performed By: #### 23227- 8 ####[facility] LABCLIA [id number] [facility] [place], [place] [address]Zvcmwphyiq [Mass/Vol]0.94 mg/dLNormal0.73-1.22[facility] on above:Order Comment: Specimen Type: BLOOD SPECIMENOrdering Facility: [facility] Address:[address] [place], [place] [address]Performed By: #### 27319-9 ####[facility] LABCLIA [id number] [place], [place] [address]Bpcdajhtfb and Glomerular filtration rate.predicted panel (S/P/Bld)102 mL/min/1.73m???Normal >=60[facility] on above:Order Comment: Specimen Type: BLOOD SPECIMENOrdering Facility: [facility] Address:[address] [place], [place] [address]Result Comment: Estimated Glomerular Filtration Rate (eGFR) is calculated using the 2020 CKD-EPI creatinine equation. This equation utilizes serum creatinine, sex, and age as parameters. The creatinine assay has traceable calibration to isotope dilution-mass spectrometry. Refer to KDIGO guidelines for clinical interpretation. In patients with unstable renal function, e.g. those with acute kidney injury, the eGFR may not accurately reflect actual GFR.Performed By: #### 40568-8 ####[facility] LABCLIA [id number] [place], [place] [address]Vjrzfpm [Mass/Vol]93 mg/lSLqxzie46-56SyehzcupcCrystal Clinic Orthopedic Center on above:Order Comment: Specimen Type: BLOOD SPECIMENOrdering Facility: [facility] Address:[address] [place] [address] Comment: The [place] Diabetes Association (ADA) provides guidance for cutoff values for fast ing glucose and random glucose. The ADA defines [...] Standards of Medical Care in Diabetes 2016, [place] [employer]. Diabetes Care. 2016.39(Suppl 1).Performed By: #### 29780-9 ####[facility] LABCLIA [id number] [place], [place] [address]Cricwndhi [Moles/Vol]4.1 mmol/LNormal3.7-5.1[facility] ClevelandComment on above:Order Comment: Specimen Type: BLOOD SPECIMENOrdering Facility: [facility] Address:[address] [place], [place] [address]Performed By: #### 86188-0 ####[facility] LABCLIA [id number] [place], [place] [address]Jftevuz [Mass/Vol]6.2 g/dLLow6.3-8.0[facility] on above:Order Comment: Specimen Type: BLOOD SPECIMENOrdering Facility: [facility] Address:[address] [address] [place], [place] [address]Performed By: #### 15548- 8 ####[facility] LABIA [id number] [place], [place] [address]Kxnyxi [Moles/Vol]144 mmol/YGvfkyf116-388YpmplukomCrystal Clinic Orthopedic Center on above:Order Comment: Specimen Type: BLOOD SPECIMENOrdering Facility: [facility] Address:[address] [place], [place] [address]Performed By: #### 49131-4 ####[facility] LABIA [id number] [place], [place] [address]Aszz nitrogen [Mass/Vol]12 mg/dLNormal9-24[facility] on above:Order Comment: Specimen Type: BLOOD SPECIMENOrdering Facility: [facility] Address:[address] [place], [place] [address]Performed By: #### 16254-5 ####[facility] LABIA [id number] [place], [place] [address]NUZPdq [id number] ([facility]) FAIZ[facility] LOZANO ([id number]) 1980 [facility] Date Time Provider Department 10/03/[address] [facility] During your visit today, we recorded the following information about you: Tammie De León RN 10/03/2024 2:05 PM Signed Call placed to patient to discuss pre op lab results. No answer. Left message and office contact number. Allergies As of Date: 10/03/2024 Noted Allergy Reaction SULFAMETHOXAZOLE-TRIMETHOPRIM 07/02/2023 10 - Anaphylaxis Date Reviewed: 09/25/2024 Reviewed by: Zenobia Heck APRN.FENDER MECHANIC - Fully Assessed Reason for Visit: Patient Update [1234] Prescriptions as of 10/03/2024 - loperamide (IMODIUM) 2 mg cap(s) Take 2 capsules by mouth before meals and at bedtime. - OLANZapine (ZYPREXA) 5 mg tablet Take 5 mg by mouth. - FLUoxetine (PROZAC) 20 mg capsule Take 40 mg by mouth. Problem List As Of Date 10/03/2024 Noted Resolved Crohn's colitis, with intestinal obstruction (H*07/06/2024 Liver abscess [K75.0] 07/06/2024 Septic shock (HCC) [A41.9, R65.21] 07/06/2024 ANNE MARIE (acute kidney injury) (HCC) [N17.9] 07/06/2024 On mechanically assisted ventilation (HCC) [Z99*07/07/2024 09/25/2024 Malnutrition of moderate degree (HCC) [E44.0] 07/08/2024 Streptococcal bacteremia [R78.81, B95.5] 07/08/2024 Encounter for ostomy care education [Z71.89] 07/14/2024 Asthma [J45.909] 10/18/2023 Current mild episode of major depressive disord*03/02/2024 PING (generalized anxiety disorder) [F41.1] 03/02/2024 Encounter Status:Closed by TAMMIE DE LEÓN on 10/03/24NoJ.W. Ruby Memorial HospitalCNPNTelephone ([facility]) MARTAFAIZA DHILLON ([id number]) 1980 [facility] Date Time Provider Department 10/03/24 AMANDA OVALLES [facility] During your visit today, we recorded the following information about you: Horace Wick 10/03/2024 3:49 PM Signed Patient Calling Back to speak with nursing staff. #: [phone] Tammie De León RN 10/03/2024 4:13 PM Addendum Call returned to patient. Spoke with his significant other. 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 She states he most recently had the stomach flu and has not rebounded. He is working but sleeping a lot. She admits he does not keep up with his po fluids and has had high output ever since surgery. He continues to take imodium 4 times daily to her knowledge. She has been pushing nutritional shakes but patient refuses most days. He did his PACC virtually so he has not been weighed or had vital signs since August 2024. Discussed lab results and new order for IVF from Dr Ovalles. He is not open to come in to [facility] for [facility]F. Will look for locations closer to his home. He declines going to ER for IVF. Reviewed diet to decrease output and reviewed oral replacement therapy. Will recheck his lab work prior to surgery. Will return call when able to locate nearest infusion therapy Tammie De León, NORBERTO 10/04/2024 9:22 AM Addendum Call returned to SO - patient is scheduled for IVF at [facility] on 10/05. He is aware of location/time. In the interim, encouraged increasing PO replacement fluids and food thickening agents. He is instructed to get labs re-drawn on Monday 10/09, per Dr Ovalles Allergies As of Date: 10/03/2024 Noted Allergy Reaction SULFAMETHOXAZOLE-TRIMETHOPRIM 07/02/2023 10 - Anaphylaxis Date Reviewed: 09/25/2024 Reviewed by: Zenobia Heck APRN.FENDER MECHANIC - Fully Assessed Reason for Visit: Patient Question [1477] Primary Visit Diagnosis:Dehydration [E86.0] Other Visit Diagnosis:Attention to ileostomy (HCC) [Z43.2] Order(s):0.9 % sodium chloride (NACL 0.9%) infusion1 liter over 4 hoursDisp: 1000 mLRfl: 11 COMPREHENSIVE METABOLIC PANEL [SQCMP] Order #: [id number] FUTURE Prescriptions as of 10/04/2024 - 0.9 % sodium chloride (NACL 0.9%) infusion 1 liter over 4 hours - loperamide (IMODIUM) 2 mg cap(s) Take 2 capsules by mouth before meals and at bedtime. - OLANZapine (ZYPREXA) 5 mg tablet Take 5 mg by mouth. - FLUoxetine (PROZAC) 20 mg capsule Take 40 mg by mouth. Problem List As Of Date 10/03/2024 Noted Resolved Crohn's colitis, with intestinal obstruction (H*07/06/2024 Liver abscess [K75.0] 07/06/2024 Septic shock (HCC) [A41.9, R65.21] 07/06/2024 ANNE MARIE (acute kidney injury) (HCC) [N17.9] 07/06/2024 On mechanically assisted ventilation (HCC) [Z99*07/07/2024 09/25/2024 Malnutrition of moderate degree (HCC) [E44.0] 07/08/2024 Streptococcal bacteremia [R78.81, B95.5] 07/08/2024 Encounter for ostomy care education [Z71.89] 07/14/2024 Asthma [J45.909] 10/18/2023 Current mild episode of major depressive disord*03/02/2024 PING (generalized anxiety disorder) [F41.1] 03/02/2024 Prescriptions ordered this encounter Disp Refills Start End SODIUM CHLORIDE 0.9 % INTRAVENOUS SO* 1000* 11 10/03/2024 Class: In Office Si liter over 4 hours Encounter Status:Closed by AMANDA OVALLES on 10/03/24NoRegency Hospital [facility] East W Auto Differential panel (Bld)on 35-77-1635Ocguposaz (Bld) [#/Vol] 0.04 10*3/uLNormal<0.11COhioHealth [facility] on above:Order Comment: Specimen Type: BLOOD SPECIMENOrdering Facility: [facility] Address:[address] [place], [place] [address]Performed By: #### 84522-4 ####[facility]ITALJA[facility] LABCLIA [id number] [place], [place] [address]Mnfegrfgo/100 WBC (Bld)0.6 %NormalCrystal Clinic Orthopedic Center on above:Order Comment: Specimen Type: BLOOD SPECIMENOrdering Facility: [facility] Address:[address] [place], [place] [address]Performed By: #### 33969-5 ####[facility] LABCLIA [id number] [place], [place] [address]Srmkvqolgszi cell count method Nom (Bld)AutoNormalCOhioHealth [facility] on above:Order Comment: Specimen Type: BLOOD SPECIMENOrdering Facility: [facility] Address:[address] [place], [place] [address]Performed By: #### 24546-3 ####[facility]JA[facility] LABCLIA [id number] [place], [place] [address]Ptpndqorknc (Bld) [#/Vol]0.29 10*3/uLNormal<0.46[facility] on above:Order Comment: Specimen Type: BLOOD SPECIMENOrdering Facility: [facility] Address:[address] [place], [place] [address]Performed By: #### 81662-2 ####[facility] LABCLIA [id number] [place], [place] [address]Dusggiirtlm/100 WBC (Bld)4.4 %NormalCrystal Clinic Orthopedic Center on above:Order Comment: Specimen Type: BLOOD SPECIMENOrdering Facility: [facility] Address:[address] [place], [place] [address]Performed By: #### 12488-9 ####[facility] LABCLIA [id number] [place], [place] [address]Wvlnetsvqpy distribution width (RBC) [Ratio]12.7 %Normal 11.5-15.0[facility] on above:Order Comment: Specimen Type: BLOOD SPECIMENOrdering Facility: [facility] Address:[address] [place], [place] [address]Performed By: #### 95733-2 ####[facility] LABIA [id number] [place] [address] Hematocrit (Bld) [Volume fraction]47.6 %Tddjrc80.0-51.0[facility] on above:Order Comment: Specimen Type: BLOOD SPECIMENOrdering Facility: [facility] Address:[address] [place], [place] [address]Performed By: #### 63322-5 ####[facility] LABIA [id number] [place], [place] [address]Mvvufzcpdz (Bld) [Mass/Vol]16.8 g/iZIyubca00.0-17.0[facility] on above:Order Comment: Specimen Type: BLOOD SPECIMENOrdering Facility: [facility] Address:[address] [place], [place] [address]Performed By: #### 62070-7 ####[facility] LABIA [id number] [place], [place] [address]Rrqhzqmf granulocytes (Bld) [#/Vol]0.03 10*3/uLNormal <0.10[facility] on above:Order Comment: Specimen Type: BLOOD SPECIMENOrdering Facility: [facility] Address:[address] [place], [place] [address]Performed By: #### 88806-3 ####[facility] LABIA [id number] [place], [place] [address]Arqftsgm granulocytes/100 WBC (Bld)0.5 %NormalCrystal Clinic Orthopedic Center on above: Order Comment: Specimen Type: BLOOD SPECIMENOrdering Facility: [facility] Address:[address] [place], [place] [address]Performed By: #### 52463- 8 ####[facility] LABCLIA [id number] [place], [place] [address]Ejaqwkgqoxs (Bld) [#/Vol]1.95 10*3/uLNormal1.00-4.00 [facility] on above:Order Comment: Specimen Type: BLOOD SPECIMENOrdering Facility: [facility] Address:[address] [place], [place] [address]Performed By: #### 07075-4 ####[facility] LABCLIA [id number] [place], [place] [address]Jzwzdjnyqxq/100 WBC (Bld)29.3 %NormalCrystal Clinic Orthopedic Center on above:Order Comment: Specimen Type: BLOOD SPECIMENOrdering Facility: [facility] Address:[address] [place], [place] [address]Performed By: #### 50195-8 ####[facility] LABCLIA [id number] [place], [place] [address]OTU (RBC) [Entitic mass]29.7 vbPzgwsq79.0-34.0[facility] on above:Order Comment: Specimen Type: BLOOD SPECIMENOrdering Facility: [facility] Address:[address] [place], [place] [address]Performed By: #### 30023-3 ####[facility]JA[facility] LABIA [id number] [place], [place] [address]OPNA (RBC) [Mass/Vol]35.3 g/wGVwtpuu88.5-36.0[facility] on above: Order Comment: Specimen Type: BLOOD SPECIMENOrdering Facility: [facility] Address:[address] [place], [place] [address]Performed By: #### 02700- 8 ####[facility] LABCLIA [id number] [place], [place] [address]GDV (RBC) [Entitic vol]84.2 rBAiidzw28.0-100.0[facility] on above:Order Comment: Specimen Type: BLOOD SPECIMENOrdering Facility: [facility] Address:[address] [place], [place] [address]Performed By: #### 50247-4 ####[facility] LABCLIA [id number] [place], [place] [address]Kxslmzhvv (Bld) [#/Vol]0.83 10*3/uLNormal<0.87[facility] on above:Order Comment: Specimen Type: BLOOD SPECIMENOrdering Facility: [facility] Address:[address] [place], [place] [address]Performed By: #### 22709- 8 ####[facility] LABCLIA [id number] [place], [place] [address]Dzncwcrri/100 WBC (Bld)12.5 %NormalCrystal Clinic Orthopedic Center on above:Order Comment: Specimen Type: BLOOD SPECIMENOrdering Facility: [facility] Address:[address] [place], [place] [address]Performed By: #### 41205-3 ####[facility] LABCLIA [id number] [place], [place] [address]Wtcodppnzqx (Bld) [#/Vol]3.51 10*3/uLNormal1.45-7.50[facility] on above:Order Comment: Specimen Type: BLOOD SPECIMENOrdering Facility: [facility] Address:[address] [place], [place] [address]Performed By: #### 40890-5 ####[facility] LABCLIA [id number] [place], [place] [address]Pkeicxzleju/100 WBC (Bld)52.7 %NormalCrystal Clinic Orthopedic Center on above:Order Comment: Specimen Type: BLOOD SPECIMENOrdering Facility: [facility] Address:[address] [place], [place] [address]Performed By: #### 79324-0 ####[facility] LABCLIA [id number] [place], [place] [address]Hjrpzopwc RBC (Bld) [#/Vol] 10*3/uLNormal<0.01[facility] on above:Order Comment: Specimen Type: BLOOD SPECIMENOrdering Facility: [facility] Address:[address] [place], [place] [address]Performed By: #### 88825-3 ####[facility] LABCLIA [id number] [place], [place] [address]Eltzhgphr RBC/100 WBC (Bld) [Ratio]0.0 /100 WBCNormal [facility] on above:Order Comment: Specimen Type: BLOOD SPECIMENOrdering Facility: [facility] Address:[address] [place], [place] [address]Performed By: #### 76828-6 ####[facility] LABCLIA [id number] [place], [place] [address]Tafnuzwm mean volume (Bld) [Entitic vol]9.4 fLNormal9.0-12.7COhioHealth [facility] on above:Order Comment: Specimen Type: BLOOD SPECIMENOrdering Facility: [facility] Address:[address] [place] [address] Performed By: #### 00686-9 ####[facility] LABCLIA [id number] [place], [place] [address]Dniebyost (Bld) [#/Vol]479 10*3/cUKrdo074-326JiuvanquxCrystal Clinic Orthopedic Center on above:Order Comment: Specimen Type: BLOOD SPECIMENOrdering Facility: [facility] Address:[address] [place], [place] [address]Performed By: #### 24482-1 ####[facility] LABCLIA [id number] [place], [place] [address]PLY (Bld) [#/Vol]5.65 10*6/uLNormal4.20-6.00[facility] on above:Order Comment: Specimen Type: BLOOD SPECIMENOrdering Facility: [facility] Address:[address] [place], [place] [address]Performed By: #### 82888-3 ####[facility] LABCLIA [id number] [place], [place] [address]IXA (Bld) [#/Vol]6.65 10*3/uLNormal3.70-11.00[facility] on above: Order Comment: Specimen Type: BLOOD SPECIMENOrdering Facility: [facility] Address:[address] [place], [place] [address]Performed By: #### 58129- 8 ####[facility] LABCLIA [id number] [place], [place] [address]NKT CBC W AUTO DIFF BLDon 95-67-8410Gvxaqiihy/100 WBC (Bld)0.6 %[facility] HospitalF BASOPHILS # BLD AUTO0.04NINFLee's Summit Hospital DIFFERENTIAL METHOD BLDAutoNOMChristian Hospital EOSINOPHIL # BLD AUTO0.29NIHumboldt General Hospital LYMPHOCYTES # BLD AUTO1.95NOSaint John's [facility] MONOCYTES # BLD AUTO 0.83NISouth Pittsburg HospitalF NEUTROPHILS # BLD AUTO3.51NOMissouri Southern HealthcareF NRBC # BLD AUTO<0.01NISouth Pittsburg HospitalF NRBC/100 WBC BLD-RTO0/100 WBCNOMissouri Baptist Medical Center CCF PLATELET # BLD KAPG974RttbQOLGSaint John's HospitalF PMV BLD AUTO9.4 fL9.0 - 12.7 fL [facility] HospitalCCF WBC # BLD AUTO6.65NOMissouri Baptist Medical CenterEosinophils/100 WBC (Bld)4.4 %[facility] HealthcareErythrocyte distribution width (RBC) [Ratio]12.7 %11.5 - 15.0 % NOMS HealthcareHematocrit (Bld) [Volume fraction]47.6 %39.0 - 51.0 %[facility] Health ServicesHemoglobin (Bld) [Mass/Vol]16.8 g/dL13.0 - 17.0 g/dLCrittenton Behavioral Health GRANULOCYTES # BLD AUTO0.03NINFCrittenton Behavioral Health GRANULOCYTES/LEUK NFR BLD AUTO0.5 %[facility] ServicesInterpretation and review of laboratory resultsAbnormal [facility] ServicesLymphocytes/100 WBC (Bld)29.3 %[facility] Health ServicesMCH (RBC) [Entitic mass]29.7 pg26.0 - 34.0 pgNortheast Regional Medical CenterHC (RBC) [Mass/Vol]35.3 g/dL30.5 - 36.0 g/dLNortheast Regional Medical CenterV (RBC) [Entitic vol]84.2 fL80.0 - 100.0 fLSaint Francis Hospital & Health ServicesMonocytes/100 WBC (Bld)12.5 %[facility] ServicesNeutrophils/100 WBC (Bld) 52.7 %[facility] Health ServicesRBC (Bld) [#/Vol]5.65 10*6/uL4.20 - 6.00 m/uLMOUNTAIN POINT MEDICAL CENTER HealthcareSpecimen Type: BLOOD SPECIMEN [facility] Address: [address] [place] [address] Original Ordering Provider: AMANDA QUILESTennessee Hospitals at [facility]urlie metabolic 2000 panelon [id number] [Mass/Vol]4.8 g/dLNormal 3.9-4.9COhioHealth [facility] on above:Order Comment: Specimen Type: BLOOD SPECIMENOrdering Facility: [facility] Address:[address] [place], [place] [address]Performed By: #### 30181-5 ####[facility] LABIA [id number] [place], [place] [address]WMR [Catalytic activity/Vol]136 U/DEdhi83-249XcufwhnssCrystal Clinic Orthopedic Center on above:Order Comment: Specimen Type: BLOOD SPECIMENOrdering Facility: [facility] Address:[address] [place], [place] [address]Performed By: #### 51425-7 ####[facility]JA[facility] LABCLIA [id number] [place] [address]CAW [Catalytic activity/Vol]42 U/KUdkvkd36-49WtnutoapyCrystal Clinic Orthopedic Center on above:Order Comment: Specimen Type: BLOOD SPECIMENOrdering Facility: [facility] Address:[address] [place], [place] [address]Performed By: #### 99064-9 ####[facility] LABCLIA [id number] [place] MANUEL BONDDIGNITY HE[facility]TY HOSPITALMACARIOWARWICK, [place] [address]Xyzru gap [Moles/Vol]13 mmol/LNormal8-15[facility] on above:Order Comment: Specimen Type: BLOOD SPECIMENOrdering Facility: [facility] Address:[address] [place], [place] [address]Performed By: #### 35858- 8 ####[facility] LABCLIA [id number] JOSE MANUEL GRAVESDIGNITY HEALTH ARIZONA SPECIALTY HOSPITALMACARIOWARWICK, [place] [address]XYF [Catalytic activity/Vol]29 U/TLfkjos09-70IkaxcmraoCrystal Clinic Orthopedic Center on above:Order Comment: Specimen Type: BLOOD SPECIMENOrdering Facility: [facility] Address:[address] [place], [place] [address]Performed By: #### 71788-9 ####[facility]JA[facility] LABCLIA [id number] [place] [address]Fxctxrnzs [Mass/Vol]1.5 mg/dLHigh0.2-1.3COhioHealth [facility] on above:Order Comment: Specimen Type: BLOOD SPECIMENOrdering Facility: [facility] Address:[address] [place], [place] [address]Performed By: #### 56548- 8 ####[facility] LABCLIA [id number] [place] [address]Pcqnbis [Mass/Vol]10.5 mg/dLHigh8.5-10.2COhioHealth [facility] on above:Order Comment: Specimen Type: BLOOD SPECIMENOrdering Facility: [facility] Address:[address] [place], [place] [address]Performed By: #### 08698-3 ####[facility] LABCLIA [id number] [place], [place] [address]Omatvpcb [Moles/Vol]99 mmol/L Bxvpmf64-250UdxuinnnbCrystal Clinic Orthopedic Center on above:Order Comment: Specimen Type: BLOOD SPECIMENOrdering Facility: [facility] Address:[address] [place], [place] [address]Performed By: #### 04035-4 ####[facility] LABCLIA [id number] [place] [address] CO2 [Moles/Vol]19 mmol/TQrg33-65WibwhloilCrystal Clinic Orthopedic Center on above:Order Comment: Specimen Type: BLOOD SPECIMENOrdering Facility: [facility] Address:[address] [place], [place] [address]Performed By: #### 92627- 8 ####[facility] LABCLIA [id number] [place], [place] [address]Jusssbqwmw [Mass/Vol]1.47 mg/dLHigh0.73-1.22[facility] on above:Order Comment: Specimen Type: BLOOD SPECIMENOrdering Facility: [facility] Address:[address] [place], [place] [address]Performed By: #### 64567-5 ####[facility] LABIA [id number] [place], [place] [address]Sanhowdmqi and Glomerular filtration rate.predicted panel (S/P/Bld)60 mL/min/1.73m???Normal>=60 [facility] on above:Order Comment: Specimen Type: BLOOD SPECIMENOrdering Facility: [facility] Address:[address] [place], [place] [address]Result Comment: Estimated Glomerular Filtration Rate (eGFR) is calculated using the 2020 CKD-EPI creatinine equation. This equation utilizes serum creatinine, sex, and age as parameters. The creatinine assay has traceable calibration to isotope dilution-mass spectrometry. Refer to KDIGO guidelines for clinical interpretation. In patients with unstable renal function, e.g. those with acute kidney injury, the eGFR may not accurately reflect actual GFR.Performed By: #### 85217-3 ####[facility] LABCLIA [id number] [place], [place] [address]Wdyvrug [Mass/Vol]112 mg/jJCtfm36-31UwaogersjCrystal Clinic Orthopedic Center on above:Order Comment: Specimen Type: BLOOD SPECIMENOrdering Facility: [facility] Address:[address] [place], [place] [address]Jsrnzi Comment: The [place] [employer] (ADA) provides guidance for cutoff values for fast ing glucose and random glucose. The ADA defines [...] Standards of Medical Care in Diabetes 2016, [place] [employer]. Diabetes Care. 2016.39(Suppl 1).Performed By: #### 78820-4 ####[facility] LABCLIA [id number] [place], [place] [address]Rhpyhebrt [Moles/Vol]4.9 mmol/LNormal3.7-5.1COhioHealth [facility] on above:Order Comment: Specimen Type: BLOOD SPECIMENOrdering Facility: [facility] Address:[address] [place], [place] [address]Oizkntzgo By: #### 46158-0 ####[facility] LABIA [id number] [place], [place] [address]Dqbfqdg [Mass/Vol]8.4 g/dLHigh6.3-8.0[facility] on above:Order Comment: Specimen Type: BLOOD SPECIMENOrdering Facility: [facility] Address:[address] [place], [place] [address]Performed By: #### 61752- 8 ####[facility] LABCLIA [id number] [place], [place] [address]Tzijal [Moles/Vol]131 mmol/MLcb999-101BkhojgmywCrystal Clinic Orthopedic Center on above:Order Comment: Specimen Type: BLOOD SPECIMENOrdering Facility: [facility] Address:[address] [place], [place] [address]Performed By: #### 31702-9 ####[facility] LABCLIA [id number] [place], [place] [address]Okfb nitrogen [Mass/Vol]30 mg/dLHigh9-24[facility] on above:Order Comment: Specimen Type: BLOOD SPECIMENOrdering Facility: [facility] Address:[address] [place], [place] [address]Performed By: #### 49204-5 ####[facility] LABIA [id number] [place] [address] HISTORY PHYSICALon 75-74-1559WFJXLPV PHYSICALHNO ID: [id number] Author: ZENOBIA HECK APRN.CNP Service: ? Author Type: Nurse Practitioner Type: H&P Filed: 09/27/2024 09:30 Note Text: [facility] HISTORY AND PHYSICAL EXAMINATION SERVICE DATE: 09/25/2024 SERVICE TIME: 9:30 AM PRIMARY CARE PHYSICIAN: Verena Rodriguez, FENDER MECHANIC, FENDER MECHANIC Assessment Patient has the following medical conditions which may affect vincent-operative course: Crohn's colitis, with intestinal obstruction (HCC) Assessment: s/p emergency ex lap surgery. Septic shock at that time. Ileostomy plans to be reversed. ANESTHESIA FINDINGS: Intubation History: No history of difficult intubation. No abnormal airway history Significant Anesthesia Considerations: none Airway History: No history of difficult airway No abnormal airway history Bender Activity Status Index: METS: Walk indoors, such as around the house (1.75 METs) Do light work around the house, such as dusting or washing dishes (2.70 METs) Take care of self; that is eating, dressing, bathing, using the toilet (2.75 METs) Walk a block or two on level ground (2.75 METs) Do moderate work around the house, such as vacuuming, sweeping floors, or carrying in groceries (3.50 METs) Do yardwork, such as raking leaves, weeding, or pushing a power mower (4.50 METs) Climb a flight of stairs or walk up a hill (5.50 METs) DASI Score: 23.45 Patient denies any chest pain or undue shortness of breath with the above physical activity. Clinical Frailty Scale: 2. Well STOP-Bang Score: Male patient Denies snoring loudly Denies feeling tired, fatigued, or sleepy during the daytime Has not been observed to stop breathing or choking/gasping during sleep Denies having high blood pressure BMI less than or equal to 35 kg/m2 Patient 50 years old or younger Does not have a large neck STOP-Bang Score: 1 I - PHYSICAL EVALUATION AIRWAY Patient intubated: No. Tracheostomy tube not present Mallampati: II. TM distance: >3 FB. Neck ROM: full ROM without neurological symptoms. Mouth opening: adequate. Short neck: no. Thick neck: no Peterson present: no Lip Bite Test: II Microretrognathia/Micronagthia/Recessed Chin: No DENTAL Dental findings: poor dentition. II - ANESTHESIA PLAN Anesthetic Plan: other Anesthetic plan additional comments: *[facility]/TCI - anesthesia choice. Beta Carlos Monitoring Plan Post Procedure Analgesic Plan Prepared for Surgery: optimally prepared for surgery. Labs ordered by surgeon and to be done prior to surgery- reviewed and accepted CONSULTS: Patient does not require consults for optimization at this time Planned Anesthetic: other anesthesia choice The Following Tests/Procedures Have Been Initiated: No orders of the defined types were placed in this encounter. This is a virtual visit using Recommendi video visit. It required patient-provider interaction for the medical decision making as documented below. REASON FOR VISIT: Faiza Lozano is a 44 year old male who is scheduled for Procedure(s) with comments: CLOSURE ILEOSTOMY (N/A) - Open end ileostomy reversal at the request of Dr. Amanda Ovalles for consultation. My final recommendation will be communicated back to the requesting physician by way of shared medical record or letter. Subjective The patient has the following: COVID-19 Immunization Status Current Care Gaps Covid-19 Vaccine ( season) Never done No completion, postpone, frequency change, or communication history exists for this topic. CHIEF COMPLAINT: Attention to ileostomy HPI: This 44 year old male with a history of Attention to ileostomy is scheduled for the above procedure and presents to the [facility] for pre-operative examination. Patient reports closure of ileostomy. Denies any chest pain, SOB, fevers or chills, n/v/d. This is a virtual visit. The visit was conducted using Recommendi video visit. It required patient-provider interaction for the medical decision making as documented below. I have communicated my name and active licensure. The patient's identity and physical location were verified at the time of this visit. Either the patient or their legal videotape sales representative has been informed of the risks and benefits of and alternatives to treatment through a remote evaluation and consents to proceed with the evaluation remotely. REVIEW OF SYSTEMS: General: No weight loss, malaise or fevers. Neurological: No history of TIA's, stroke, DEAN OF [employer] tumor, impaired sensorium, hemiplegia, paraplegia or quadraplegia. No neurological symptoms or problems. Respiratory: No history of current cough or dyspnea, or pneumonia in the past 6 weeks. No history of respiratory/pulmonary symptoms or problems. Cardiovascular: No history of HTN requiring medication, no history of angina, CHF, MT, cardiac surgery or stents. Denies rest pain, gangrene or revascularization/amputation for P (more content not included)...NormalM[facility] [id number] Visit (SOWMYA) FAIZA LOZANO ([id number]) 1980 [address] [facility] Date Time Provider Department 08/15/24 1:40 PM AMANDA OVALLES During your visit today, we recorded the following information about you: Pulse Blood pressure Weight Height 112/minute 107/70 73.8 kg 1.753 m Amanda Ovalles MD 08/15/2024 3:54 PM Signed [facility] August 15, 2024 Faiza Lozano 44 year old Chief Complaint: post op, Crohn's disease Brief History: Faiza Lozano is a 44 year old man with h/o of crohns s/p open ileocolic resection in 2007, now s/p ex lap /resection of ileocolic anastomosis, Washout and drainage of liver/intra-abdominal abscess, Creation of end ileostomy on 07/06/24 for recurrence with perforation Interval Events Patient states doing well. Had home health nurse d/c gerry and PICC line. Finished course of IV atbx. Tolerating diet well. No nausea or emesis. Some discharge per rectum. Ostomy with good output although notes alternates between liquid and thicker output. No fiber supplementation but takes 2 tabs imodium AC/HS. Empties bag on average 2-3x/d and changes bag every 4 days or so. Continues with protein shake supplementation and hydrates appropriately. Has gained some weight since admission. Eager to go back to work. Has follow-up planned with GI team with plan for restarting Stelara per-patient after stoma reversed. Off steroids. No past medical history on file. PAST SURGICAL HISTORY Procedure Laterality Date PICC LINE INSERT/CONSULT 07/11/2024 Current Outpatient Medications Medication Sig Dispense Refill loperamide (IMODIUM) 2 mg cap(s) Take 2 capsules by mouth before meals and at bedtime. [address] (PROTONIX) 40 mg tablet Take 1 tablet by mouth daily at 6 am. 30 tablet 0 lactobacillus rhamnosus (CULTURELLE) 10 billion cell capsule Take 1 capsule by mouth once daily. 30 capsule 0 OLANZapine (ZYPREXA) 5 mg tablet Take 5 mg by mouth. FLUoxetine (PROZAC) 20 mg capsule Take 40 mg by mouth. predniSONE (DELTASONE) 5 mg tablet (Patient not taking: Reported on 08/09/2024) No current facility-administered medications for this visit. ALLERGIES Allergen Reactions Sulfamethoxazole-Tr* Anaphylaxis No family history on file. Social History Tobacco Use Smoking status: Never Smokeless tobacco: Never Physical Exam: BP 107/70 (BP Site: Left Arm, BP Position: Sitting, BP Cuff Size: Regular Adult) Pulse 112 Ht 175.3 cm (5' 9 ) Wt 73.8 kg (162 lb 11.2 oz) BMI 24.03 kg/m? General Appearance: Well appearing, alert, in no acute distress, well-hydrated, well nourished. Abdomen: soft, stoma pink viable with liquid green stool, incisions c/d/i CT enterography 01/10/24 Scan on 07/05/2024 11:59 AM by Horace Wick: On License Of [facility] - CT ABD/Pelv Report, 01/10/24 Abnormal wall thickening and enhancement involving the distal ileum of approximately 8 to 9 cm in length to the level of the patient's anastomosis. Active Crohn's disease is suspected. No prestenotic dilation is seen to suggest significant stricture/obstruction. CT A/P 07/28/24 Significant improvement of the previously-seen intra-abdominal air and fluid collections, with only a tiny fluid collection of the previously-seen intrahepatic abscess remaining, and the small 1.6 cm collection of the previously-seen subhepatic collection remaining. No new suspicious organizing fluid collection or other acute finding seen. Colonoscopy 01/11/24 - Dr. Sellers Scan on 07/06/2024 9:50 AM by Danielle Gray: On License Of [facility] Colonoscopy report [id number] - Anastomosis in the right colon - Bulging lesion at hte anastomosis-suspect may be the invagination of the small bowel seen on recent CTE - biopsied - Ulcerated stricture at the anastomosis that could not be traversed with the colonoscope - Biopsies obtained at the stricture - Retroflexed views: small internal hemorrhoids Pathology Scan on 07/06/2024 9:51 AM by Danielle Gray: On License Of [facility] path report [id number] A. Small bowel, biopsy: Active chronic inflammation B. Lesion, anastomosis, biopsy: Active chronic inflammation with evidence of ulceration C. Colon, random biopsy: NO evidence of active colitis Surgical Pathology 07/06/24 FINAL DIAGNOSIS A. 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 - No granulomas or dysplasia identified. - Three (3) benign lymph nodes. Assessment Assessment and Plan: Faiza Lozano is a 44 year old man with h/o of crohns s/p open ileocolic resection in 2007, now s/p ex lap /resection of ileocolic anastomosis, Washout and drainage of liver/intra-abdominal abscess, Creation of (more content not included)...[facility] WITH AUTO DIFFon 08-07-2024 Erythrocyte distribution width (RBC) [Ratio]14.3 %11.0 - 15.0 %[facility] Hematocrit (Bld) [Volume fraction]35.9 %Low42.0 - 54.0 %[facility] Hemoglobin (Bld) [Mass/Vol]11.5 g/dLLow14.0 - 18.0 g/dLSaint Francis Hospital & Health Services Interpretation and review of laboratory resultsAbnormalFreeman Health System (RBC) [Entitic mass]29.3 pg25.9 - 34.0 pgNortheast Regional Medical CenterHC (RBC) [Mass/Vol]32 g/dL 29.9 - 35.2 g/dLNortheast Regional Medical CenterV (RBC) [Entitic vol]91.6 fL80.0 - 94.0 fLSaint Francis Hospital & Health ServicesPlatelet mean volume (Bld) [Entitic vol]8.7 fLLow9.5 - 13.5 fLNortheast Missouri Rural Health Network OPB173EBIDDoctors Hospital of Springfield RBC3.92LowNODoctors Hospital of [place] WBC5.2NOMS HealthcareCLINISYNCNOMS HealthcareBasophils Auto (Bld) [#/Vol]Ordered By: Jayson Washburn on 22-82-2341Tovwmofqo (Bld) [#/Vol]Automated basophil count 0.0-0.2FUniversity Hospitals Elyria Medical CenterBasophils/100 WBC Auto (Bld)Ordered By: Jayson Washburn on 02-57-2397Jopelzgdi/100 WBC (Bld)Automated basophil %. [facility]ullComplete Blood Count Auto Diffon 07-31-2024 Basophils (Bld) [#/Vol]0.1 10*3/uLNormal0.0-0.2The [facility] Comment on above:Result Comment: PERFORMED BY: [facility] [address] [place] [address] PATHOLOGIST INSTRUMENT AND ELECTRICAL TECHNICIAN RICH HIDALGO M.D.Performed By: #### CBC #### [facility] [address] [place] [address] USABasophils/100 WBC (Bld)1.1 %Normal.The [facility] Physician GroupComment on above:Performed By: #### CBC #### [facility] [address] [place] [address] USAEosinophils (Bld) [#/Vol]0.2 10*3/uLNormal0.0-0.45The [facility] GroupComment on above:Performed By: #### CBC #### [facility] [address] [place] [address] USAEosinophils/100 WBC (Bld)3.3 %Normal.The [facility] GroupComment on above:Performed By: #### CBC #### [place] [address] USAErythrocyte distribution width (RBC) [Ratio]15.8 %High 12.0-14.8The [facility]ician GroupComment on above:Performed By: #### CBC #### [place] [address] USAHematocrit (Bld) [Volume fraction]35.2 %Low38.8-50.0The [facility] GroupComment on above:Performed By: #### CBC #### [place] [address] USAHemoglobin (Bld) [Mass/Vol]11.6 g/dLLow13.0-17.0The [facility] GroupComment on above:Performed By: #### CBC #### [facility] [address] [place] [address] USALymphocytes (Bld) [#/Vol]0.6 10*3/uLLow1.00-4.8The [facility] Physician GroupComment on above:Performed By: #### CBC #### [place] [address] USALymphocytes/100 WBC (Bld)9.3 %Normal.The [facility]ician GroupComment on above:Performed By: #### CBC #### [facility] [address] [place] [address] USAH (RBC) [Entitic mass]30.1 yfBvgzlr93.5-35.2The [facility] Physician GroupComment on above:Performed By: #### CBC #### [facility] [address] (RBC) [Entitic vol]90.9 gGCubhag11.5-101The [facility] Physician GroupComment on above:Performed By: #### CBC #### [place] [address] USAMean Corpuscular HGB Conc33.1 g/yEPutazc67.5-35.6The [facility] Physician GroupComment on above:Performed By: #### CBC #### [place] [address] USAMonocytes (Bld) [#/Vol]0.5 10*3/uLNormal0.0-0.8The [facility] Physician GroupComment on above:Performed By: #### CBC #### [place] [address] USAMonocytes/100 WBC (Bld)7.6 %Normal.The [facility]ician GroupComment on above:Performed By: #### CBC #### [place] [address] USANeutrophils (Bld) [#/Vol]4.9 10*3/uLNormal1.8-7.7The [facility] Physician GroupComment on above:Performed By: #### CBC #### [place] [address] USANeutrophils/100 WBC (Bld)78.7 %Normal.The [facility] Physician GroupComment on above:Performed By: #### CBC #### [place] [address] USANRBC%0.0 /100{WBC}Normal0-0.5The [facility] Comment on above:Performed By: #### CBC #### [facility] [address] [place] [address] USAPlatelet mean volume (Bld) [Entitic vol]7.4 fLNormal 6.6-10.1The [facility] Physician GroupComment on above:Performed By: #### CBC #### [facility] [address] [place] [address] USAPlatelets (Bld) [#/Vol]242 10*3/rLPybqri280-055Vdg [facility] Physician GroupComment on above:Performed By: #### CBC #### [facility] [address] [place] [address] USARBC (Bld) [#/Vol]3.87 10*6/uLLow3.90-5.60The [facility] Physician GroupComment on above:Performed By: #### CBC #### [facility] [address] [place] [address] USAWBC (Bld) [#/Vol]6.2 10*3/uLNormal4.1-10.5The [facility] Physician GroupComment on above:Performed By: #### CBC #### [facility] [address] [place] [address] USAEosinophils Auto (Bld) [#/Vol]Ordered By: Jayson Washburn on 94-28-2496Arsvsolqyub (Bld) [#/Vol]Automated eosinophil count0.0-0.45 [facility] TrumbullEosinophils/100 WBC Auto (Bld)Ordered By: Jayson Washburn on 36-90-8757Mtlmrjktwsz/100 WBC (Bld)Automated eosinophil %. [facility] TrumbullErythrocyte distribution width Auto (RBC) [Ratio]Ordered By: Jayson Washburn on 22-91-3868Oiqkcfebcsk distribution width (RBC) [Ratio]Erythrocyte distribution width [Ratio] by Automated countHigh 12.0-14.8[facility] TrumbullHematocrit Auto (Bld) [Volume fraction]Ordered By: Jayson Washburn on 54-26-9455Nkczvbamfb (Bld) [Volume fraction]Hematocrit [Volume Fraction] of Blood by Automated jzvelQsg75.8-50.0 [facility] TrumbullHemoglobin [Mass/volume] in BloodOrdered By: Jayson Washburn on 87-57-0704Edhacmzeds (Bld) [Mass/Vol]Hemoglobin [Mass/volume] in HguiwPhe27.0-17.0[facility] TrumbullLeukocytes [#/volume] corrected for nucleated erythrocytes in Blood by Automated counOrdered By: Jayson Wasbhurn on 55-97-9321UBL corrected for nucl RBC Auto (Bld) [#/Vol] Leukocytes [#/volume] corrected for nucleated erythrocytes in Blood by Automated coun4.1-10.5FUniversity Hospitals Elyria Medical CenterLymphocytes Auto (Bld) [#/Vol] Ordered By: Jayson Washburn on 82-20-2507Nerabhvgtag (Bld) [#/Vol]Lymphocytes [#/volume] in Blood by Automated countLow1.00-4.8[facility] TrumbullLymphocytes/100 WBC Auto (Bld)Ordered By: Jayson Washburn on 07-31-2024 Lymphocytes/100 WBC (Bld)Lymphocytes/100 leukocytes in Blood by Automated count. [facility] TrumbullMCH Auto (RBC) [Entitic mass]Ordered By: Jayson Washburn on 05-79-9308QNA (RBC) [Entitic mass]MCH [Entitic mass] by Automated count27.5-35.2FUniversity Hospitals Elyria Medical CenterMCHC Auto (RBC) [Mass/Vol]Ordered By: Jayson Washburn on 69-36-4356EJGW (RBC) [Mass/Vol]MCHC [Mass/volume] by Automated count32.5-35.6FUniversity Hospitals Elyria Medical CenterMCV Auto (RBC) [Entitic vol]Ordered By: Jayson Washburn on 32-10-4852YCN (RBC) [Entitic vol]MCV [Entitic volume] by Automated count83.5-101[facility] TrumbullMonocytes Auto (Bld) [#/Vol]Ordered By: Jayson Washburn on 66-73-4643Amebnczxq (Bld) [#/Vol]Automated blood monocyte count0.0-0.8[facility] TrumbullMonocytes/100 WBC Auto (Bld)Ordered By: Jayson Washburn on 73-30-2585Ubejqfqcz/100 WBC (Bld)Automated monocyte %.[facility] - TrumbullNeutrophils Auto (Bld) [#/Vol]Ordered By: Jayson Washburn on 66-29-9310Zdgkdaxfxsv (Bld) [#/Vol]Neutrophils [#/volume] in Blood by Automated count1.8-7.7FUniversity Hospitals Elyria Medical CenterNeutrophils/100 WBC Auto (Bld) Ordered By: Jayson Washburn on 49-50-4891Gyzifwclclf/100 WBC (Bld)Automated neutrophil %.[facility] - TrumbullNucleated erythrocytes [Presence] in Blood by Automated countOrdered By: Jayson Washburn on 78-85-9417Zxzxmkqkb RBC Auto Ql (Bld)Nucleated erythrocytes [Presence] in Blood by Automated count 0-0.5FUniversity Hospitals Elyria Medical CenterPlatelet mean volume Auto (Bld) [Entitic vol]Ordered By: Jayson Washburn on 73-12-6479Wdtljcbg mean volume (Bld) [Entitic vol]Platelet mean volume [Entitic volume] in Blood by Automated count6.6-10.1 [facility] - TrumbullPlatelets Auto (Bld) [#/Vol]Ordered By: Jayson Washburn on 00-37-0081Ypcoemtcb (Bld) [#/Vol]Platelets [#/volume] in Blood by Automated vzwri351-556RcbnqyxatSelect Medical Specialty Hospital - TrumbullRBC Auto (Bld) [#/Vol] Ordered By: Jayson Washburn on 06-87-4369QKW (Bld) [#/Vol]Erythrocytes [#/volume] in Blood by Automated countLow3.90-5.60[facility] TrumbullWBC Auto (Bld) [#/Vol]Ordered By: Jayson Washburn on 42-84-4186HBO (Bld) [#/Vol]Leukocytes [#/volume] in Blood by Automated count4.1-10.5FUniversity Hospitals Elyria Medical CenterCT ABD/PEL W IVCONon 07-30-2024* * *Final Report* * * DATE OF EXAM: Jul 28 2024 10:10AM [facility] 0530 - CT ABD/PEL W IVCON / PROCEDURE REASON: Infection in abdomen (HCC) * * * * Physician Interpretation * * * * EXAMINATION: CT ABDOMEN AND PELVIS WITH IV CONTRAST CLINICAL HISTORY: Follow-up of intra-abdominal infection in a patient with history of Crohn's disease, status post resection of ileocolic anastomosis and intra-abdominal abscess drainage. TECHNIQUE: CT of the abdomen and pelvis was performed using standard technique, scanning from just above the dome of the diaphragm to the upper thighs. Contrast: IV: 100 ml of Omnipaque 350 CT Radiation dose: Integrated Dose-length product (DLP) for this visit = 287 mGy*cm. CT Dose Reduction Employed: Automated exposure control(AEC) and iterative recon COMPARISON: CT abdomen pelvis 07/06/2024 FINDINGS: LOWER CHEST: No significant abnormality. HEPATOBILIARY: The previously seen intrahepatic abscess is significantly decreased in size, with only a tiny fluid collection remaining near the gallbladder fossa. The liver and gallbladder are otherwise grossly unremarkable. No biliary ductal dilatation. SPLEEN, PANCREAS, ADRENAL GLANDS: A subcentimeter hyperdense lesion within the spleen is indeterminate. Otherwise, within normal limits. KIDNEYS, URETERS, BLADDER: Symmetric parenchymal enhancement with no hydronephrosis. Few tiny scattered low-density lesions throughout the kidneys are too small to accurately characterize by CT. Ureters and bladder grossly unremarkable. PROSTATE, SEMINAL VESICLES: No CT finding of pathology. BOWEL: Postsurgical changes from the ileocolic anastomosis resection and right lower quadrant ileostomy formation are present. No evidence of obstruction. Postprandial stomach incidentally noted. PERITONEAL/EXTRAPERITONEAL SPACE: The previously-seen subhepatic air and fluid collection is significantly decreased in size, with only trace residual 1.6 cm collection remaining (2:52). No new suspicious organizing fluid collection seen. LYMPH NODES: No adenopathy. VASCULAR: Grossly unremarkable. ABDOMINAL WALL: Postsurgical changes from prior surgery and ileostomy formation are present at the anterior abdominal wall, including scattered small foci of free air. MUSCULOSKELETAL: No acute osseous abnormality. IMPRESSION: Significant improvement of the previously-seen intra-abdominal air and fluid collections, with only a tiny fluid collection of the previously-seen intrahepatic abscess remaining, and the small 1.6 cm collection of the previously-seen subhepatic collection remaining. No new suspicious organizing fluid collection or other acute finding seen. Benzol Still Operator: PSCB Transcribe Date/Time: Jul 30 2024 11:50A Dictated by : MONICA RUSSELL MD This examination was interpreted and the report reviewed and electronically signed by: MONICA RUSSELL MD on Jul 30 2024 12:01PM EST [id number]^SI^ACNCCFRadiology, Radiologist, - 07/30/2024 * * *Final Report* * * DATE OF EXAM: Jul 28 2024 10:10AM [facility] 0530 - CT ABD/PEL W IVCON / PROCEDURE REASON: Infection in abdomen (HCC) * * * * Physician Interpretation * * * * EXAMINATION: CT ABDOMEN AND PELVIS WITH IV CONTRAST CLINICAL HISTORY: Follow-up of intra-abdominal infection in a patient with history of Crohn's disease, status post resection of ileocolic anastomosis and intra-abdominal abscess drainage. TECHNIQUE: CT of the abdomen and pelvis was performed using standard technique, scanning from just above the dome of the diaphragm to the upper thighs. Contrast: IV: 100 ml of Omnipaque 350 CT Radiation dose: Integrated Dose-length product (DLP) for this visit = 287 mGy*cm. CT Dose Reduction Employed: Automated exposure control(AEC) and iterative recon COMPARISON: CT abdomen pelvis 07/06/2024 FINDINGS: LOWER CHEST: No significant abnormality. HEPATOBILIARY: The previously seen intrahepatic abscess is significantly decreased in size, with only a tiny fluid collection remaining near the gallbladder fossa. The liver and gallbladder are otherwise grossly unremarkable. No biliary ductal dilatation. SPLEEN, PANCREAS, ADRENAL GLANDS: A subcentimeter hyperdense lesion within the spleen is indeterminate. Otherwise, within normal limits. KIDNEYS, URETERS, BLADDER: Symmetric parenchymal enhancement with no hydronephrosis. Few tiny scattered low-density lesions throughout the kidneys are too small to accurately characterize by CT. Ureters and bladder grossly unremarkable. PROSTATE, SEMINAL VESICLES: No CT finding of pathology. BOWEL: Postsurgical changes from the ileocolic anastomosis resection and right lower quadrant ileostomy formation are present. No evidence of obstruction. Postprandial stomach incidentally noted. PERITONEAL/EXTRAPERITONEAL SPACE: The previously-seen subhepatic air and fluid collection is significantly decreased in size, with only trace residual 1.6 cm collection remaining (2:52). No new suspicious organizing fluid collection seen. LYMPH NODES: No adenopathy. VASCULAR: Grossly unremarkable. ABDOMINAL WALL: Postsurgical changes from prior surgery and ileostomy formation are present at the anterior abdominal wall, including scattered small foci of free air. MUSCULOSKELETAL: No acute osseous abnormality. IMPRESSION: Significant improvement of the previously-seen intra-abdominal air and fluid collections, with only a tiny fluid collection of the previously-seen intrahepatic abscess remaining, and the small 1.6 cm collection of the previously-seen subhepatic collection remaining. No new suspicious organizing fluid collection or other acute finding seen. Benzol Still Operator: PSCB Transcribe Date/Time: Jul 30 2024 11:50A Dictated by : MONICA RUSSELL MD This examination was interpreted and the report reviewed and electronically signed by: MONICA RUSSELL MD on Jul 30 2024 12:01PM EST [id number]^SI^ACN [facility] ServicesCT ABD/PEL W IVCONOrdered By: Radiologist Radiology on 07-30-2024 [facility] Work Phone: ct ABD/PEL W IVCONon [id number] ABD/PEL W IVCON* * *Final Report* * * DATE OF EXAM: Jul 28 2024 10:10AM [facility] 0530 - CT ABD/PEL W IVCON / PROCEDURE REASON: Infection in abdomen (HCC) * * * * Physician Interpretation * * * * EXAMINATION: CT ABDOMEN AND PELVIS WITH IV CONTRAST CLINICAL HISTORY: Follow-up of intra-abdominal infection in a patient with history of Crohn's disease, status post resection of ileocolic anastomosis and intra-abdominal abscess drainage. TECHNIQUE: CT of the abdomen and pelvis was performed using standard technique, scanning from just above the dome of the diaphragm to the upper thighs. Contrast: IV: 100 ml of Omnipaque 350 CT Radiation dose: Integrated Dose-length product (DLP) for this visit = 287 mGy*cm. CT Dose Reduction Employed: Automated exposure control(AEC) and iterative recon COMPARISON: CT abdomen pelvis 07/06/2024 FINDINGS: LOWER CHEST: No significant abnormality. HEPATOBILIARY: The previously seen intrahepatic abscess is significantly decreased in size, with only a tiny fluid collection remaining near the gallbladder fossa. The liver and gallbladder are otherwise grossly unremarkable. No biliary ductal dilatation. SPLEEN, PANCREAS, ADRENAL GLANDS: A subcentimeter hyperdense lesion within the spleen is indeterminate. Otherwise, within normal limits. KIDNEYS, URETERS, BLADDER: Symmetric parenchymal enhancement with no hydronephrosis. Few tiny scattered low-density lesions throughout the kidneys are too small to accurately characterize by CT. Ureters and bladder grossly unremarkable. PROSTATE, SEMINAL VESICLES: No CT finding of pathology. BOWEL: Postsurgical changes from the ileocolic anastomosis resection and right lower quadrant ileostomy formation are present. No evidence of obstruction. Postprandial stomach incidentally noted. PERITONEAL/EXTRAPERITONEAL SPACE: The previously-seen subhepatic air and fluid collection is significantly decreased in size, with only trace residual 1.6 cm collection remaining (2:52). No new suspicious organizing fluid collection seen. LYMPH NODES: No adenopathy. VASCULAR: Grossly unremarkable. ABDOMINAL WALL: Postsurgical changes from prior surgery and ileostomy formation are present at the anterior abdominal wall, including scattered small foci of free air. MUSCULOSKELETAL: No acute osseous abnormality. IMPRESSION: Significant improvement of the previously-seen intra-abdominal air and fluid collections, with only a tiny fluid collection of the previously-seen intrahepatic abscess remaining, and the small 1.6 cm collection of the previously-seen subhepatic collection remaining. No new suspicious organizing fluid collection or other acute finding seen. Benzol Still Operator: [facility] HOSPITALDilan Transcribe Date/Time: Jul 30 2024 11:50A Dictated by : MONICA RUSSELL MD This examination was interpreted and the report reviewed and electronically signed by: MONICA RUSSELL MD on Jul 30 2024 12:01PM EST [id number] Nelsonville Health CenterRadiology Study observation (narrative)NOMS HealthcareCNCOon [id number] TextNormal [facility] CBC WITH AUTO DIFFon 33-74-8108SPRYRHCCP ABSOLUTE AUTO0.1NOMS HealthcareBasophils/100 WBC (Bld)0.5 %0.2 - 2.0 %[facility] Healthcare Eosinophils/100 WBC (Bld)0.5 %Low0.9 - 7.0 %NOMS HealthcareErythrocyte distribution width (RBC) [Ratio]14.6 %11.0 - 15.0 %NOMS HealthcareHematocrit (Bld) [Volume fraction]35.7 %Low42.0 - 54.0 %NOM HealthcareHemoglobin (Bld) [Mass/Vol]11.4 g/dLLow14.0 - 18.0 g/dLSaint Francis Hospital & Health ServicesIMMATURE GRANULOCYTES ABS AUTO0.08HighNOMS HealthcareImmature granulocytes/100 WBC (Bld)0.8 %High0.0 - 0.5 %[facility] HealthcareInterpretation and review of laboratory resultsAbnormalNOMI HealthcareLYMPHOCYTES ABSOLUTE AUTO0.7LowNOMS HealthcareLymphocytes/100 WBC (Bld)7.7 %Low20.5 - 60.0 %[facility] ServicesMCH (RBC) [Entitic mass]29.6 pg25.9 - 34.0 pgNOSaint Mary's Hospital of Blue SpringsHC (RBC) [Mass/Vol]31.9 g/dL29.9 - 35.2 g/dLSaint Francis Hospital & Health ServicesMCV (RBC) [Entitic vol]92.7 fL80.0 - 94.0 fLSaint Francis Hospital & Health ServicesMONOCYTES ABSOLUTE AUTO0.5NOMS HealthcareMonocytes/100 WBC (Bld)5.4 %1.7 - 12.0 %NOM HealthcareNEUTROPHILS ABSOLUTE AUTO8.2HighNOMS HealthcareNeutrophils/100 WBC (Bld)85.1 %High43.0 - 75.0 %[facility] Health ServicesPlatelet mean volume (Bld) [Entitic vol]9.1 fLLow9.5 - 13.5 fLSaint Francis Hospital & Health ServicesTBH EO #0.1NOMS [facility] HospitalTB RII066 [facility] RBC3.85LowNOMS [facility] WBC9.6NOMissouri Baptist Medical CenterFIRELANDS HOME HEALTH DROP OFF CLINISYNCNOMI HealthcareALL CBC WITH AUTO DIFFon 87-48-7912JYDYRTCGT ABSOLUTE TRBL1FJGF HealthcareBasophils/100 WBC (Bld)0.4 %0.2 - 2.0 %[facility] Healthcare Eosinophils/100 WBC (Bld)0.5 %Low0.9 - 7.0 %[facility] Health ServicesErythrocyte distribution width (RBC) [Ratio]14.3 %11.0 - 15.0 %NOM HealthcareHematocrit (Bld) [Volume fraction]35.1 %Low42.0 - 54.0 %[facility] HealthcareHemoglobin (Bld) [Mass/Vol]11.4 g/dLLow14.0 - 18.0 g/dLSaint Francis Hospital & Health ServicesIMMATURE GRANULOCYTES ABS AUTO0.1HighNOMI HealthcareImmature granulocytes/100 WBC (Bld)0.9 %High0.0 - 0.5 %[facility] HealthcareInterpretation and review of laboratory resultsAbnormalMOUNTAIN POINT [facility] HealthcareLYMPHOCYTES ABSOLUTE AUTO0.7LowNOMS HealthcareLymphocytes/100 WBC (Bld)6.7 %Low20.5 - 60.0 %[facility] CenterH (RBC) [Entitic mass]29.6 pg25.9 - 34.0 pgNortheast Regional Medical CenterHC (RBC) [Mass/Vol]32.5 g/dL29.9 - 35.2 g/dLNortheast Regional Medical CenterV (RBC) [Entitic vol]91.2 fL80.0 - 94.0 fLSaint Francis Hospital & Health ServicesMONOCYTES ABSOLUTE AUTO0.8NOMI HealthcareMonocytes/100 WBC (Bld)7.2 %1.7 - 12.0 %[facility] ServicesNEUTROPHILS ABSOLUTE GOJZ8TcyjVKHK HealthcareNeutrophils/100 WBC (Bld) 84.3 %High43.0 - 75.0 %[facility] Health ServicesPlatelet mean volume (Bld) [Entitic vol] 9.4 fLLow9.5 - 13.5 fLNortheast Missouri Rural Health Network EO #0.1NOMS HealthcareTB JMS378LBZEDoctors Hospital of Springfield RBC3.85LowNOMS [facility] HospitalTB WBC10.7[facility] DROP OFF CLINISYNCNOMI HealthcareCASE MANAGEMon 47-47-6895OGET MANAGEMNormalFaGrover Memorial Hospital panel Auto (Bld)on 00-29-1221Eynyjngqmnk distribution width (RBC) [Ratio]13.7 %Ngcjnx62.5-15.0[facility] HospitalComment on above:Order Comment: Specimen Type: BLOOD SPECIMENOrdering Facility: [facility] Address:[address], [place] [address]Gftvkhqew By: #### 51336-6 ####MARILEEVIEW LABORATORYCLIA [id number] [place] [address] [place] OF AMERICAHematocrit (Bld) [Volume fraction]35.4 %Low39.0-51.0 [facility] HospitalComment on above:Order Comment: Specimen Type: BLOOD SPECIMENOrdering Facility: [facility] Address:[address] [place], [place] [address]Performed By: #### 43821-8 ####RADHA LABORATORYCLIA [id number] [place] [address] [place] Hemoglobin (Bld) [Mass/Vol]11.5 g/dLLow13.0-17.0[facility] HospitalComment on above:Order Comment: Specimen Type: BLOOD SPECIMENOrdering Facility: [facility] Address:[address] [place], [place] [address]Performed By: #### 57557-8 ####RADHA LABORATORYCLIA [id number] [address]ETMCH (RBC) [Entitic mass]29.0 wiGmwjcs94.0-34.0 [facility] HospitalComment on above:Order Comment: Specimen Type: BLOOD SPECIMENOrdering Facility: [facility] Address:[address] [place], [place] [address]Performed By: #### 57322-8 ####RADHA LABORATORYCLIA [id number] [address] OF ASHTABUL[facility] COUNTY MEDICAL CENTERMCHC (RBC) [Mass/Vol]32.5 g/iDIkudqo18.5-36.0[facility] HospitalComment on above:Order Comment: Specimen Type: BLOOD SPECIMENOrdering Facility: [facility] Address:[address] [place], [place] [address]Performed By: #### 72097- 2 ####RADHA LABORATORYCLIA [id number] [address]ETMCV (RBC) [Entitic vol]89.4 kQZsawnr17.0-100.0[facility] HospitalComment on above:Order Comment: Specimen Type: BLOOD SPECIMENOrdering Facility: [facility] Address:[address] [place], [place] [address]Performed By: #### 92303-2 ####RAHDA LABORATORYCLIA [id number] [place] [id number] [place] OF AMERICANucleated RBC (Bld) [#/Vol]10*3/uLNormal<0.01[facility] HospitalComment on above:Order Comment: Specimen Type: BLOOD SPECIMENOrdering Facility: [facility] Address:[address] [place], [place] [address]Performed By: #### 87435-6 ####RADHA LABORATORYCLIA [id number] [place] [address] [place] AMERICAPlatelet mean volume (Bld) [Entitic vol]9.5 fLNormal 9.0-12.7Fmiravista behavioral health center HospitalComment on above:Order Comment: Specimen Type: BLOOD SPECIMENOrdering Facility: [facility] Address:[address] [place], [place] [address]Performed By: #### 02362-9 ####RADHA LABORATORYCLIA [id number] [place] [address] [place] Platelets (Bld) [#/Vol]355 10*3/zUKhfezu354-665Jxlixsyh HospitalComment on above:Order Comment: Specimen Type: BLOOD SPECIMENOrdering Facility: [facility] Address:[address] [place], [place] [address]Performed By: #### 53156-1 ####RADHA LABORATORYCLIA [id number] [place] [address] [place] AMERICARBC (Bld) [#/Vol]3.96 10*6/uLLow4.20-6.00[facility] HospitalComment on above:Order Comment: Specimen Type: BLOOD SPECIMENOrdering Facility: [facility] Address:[address] [place], [place] [address]Performed By: #### 53772-7 ####RADHA LABORATORYCLIA [id number] [place] [address] [place] OF AMERICAWBC (Bld) [#/Vol]7.67 10*3/uLNormal3.70-11.00Faview HospitalComment on above:Order Comment: Specimen Type: BLOOD SPECIMENOrdering Facility: [facility] Address:[address] [place], [place] [address]Performed By: #### 23372-0 ####RADHA LABORATORYCLIA [id number] [place] [address] [place] AMERICACNDSon 85-86-9159OFMNAzctznInalkizk HospitalComprehensive metabolic 2000 panelon 86-18-3751Sdbjpvn [Mass/Vol]3.8 g/dLLow3.9-4.9[facility] HospitalComment on above:Order Comment: Specimen Type: BLOOD SPECIMENOrdering Facility: [facility] Address:[address] [place] [address] Performed By: #### 42571-9, , 2776-08 ####RADHA LABORATORYCLIA [id number] [place] [address] [place] AMERICAALP [Catalytic activity/Vol]80 U/QOjktbo72-771Jslaaprl HospitalComment on above: Order Comment: Specimen Type: BLOOD SPECIMENOrdering Facility: [facility] Address:[address] [place], [place] [address]Performed By: #### 65582- 8, , 2776-08 ####RADHA LABORATORYCLIA [id number] [place] [id number] [place] AMERICAALT [Catalytic activity/Vol]61 U/L Lmlb51-11Uaphtajl HospitalComment on above:Order Comment: Specimen Type: BLOOD SPECIMENOrdering Facility: [facility] Address:[address] [place], [place] [address]Performed By: #### 62611-3, , 2776-08 ####RADHA LABORATORYCLIA [id number] [place] [address] [place] AMERICAAnion gap [Moles/Vol]9 mmol/LNormal8-15[facility] HospitalComment on above: Order Comment: Specimen Type: BLOOD SPECIMENOrdering Facility: [facility] Address:[address] [place], [place] [address]Performed By: #### 66162- 8, , 2776-08 ####RADHA LABORATORYCLIA [id number] [place] [address] [place] AMERICAAST [Catalytic activity/Vol]32 U/L Akyrnl07-03Vxvtlckc HospitalComment on above:Order Comment: Specimen Type: BLOOD SPECIMENOrdering Facility: [facility] Address:[address] [place], [place] [address]Performed By: #### 80000-6, , 2776-08 ####RADHA LABORATORYCLIA [id number] [place] [address] [place] AMERICABilirubin [Mass/Vol]0.5 mg/dLNormal0.2-1.3Fmiravista behavioral health center HospitalComment on above:Order Comment: Specimen Type: BLOOD SPECIMENOrdering Facility: [facility] Address:[address] [place], [place] [address]Performed By: #### 52133-6, , 2776-08 ####RADHA LABORATORYCLIA [id number] [place] [address] [place] AMERICACalcium [Mass/Vol]9.0 mg/dL Normal8.5-10.2Fmiravista behavioral health center HospitalComment on above:Order Comment: Specimen Type: BLOOD SPECIMENOrdering Facility: [facility] Address:[address] [place], [place] [address]Performed By: #### 25227-4, , 2776-08 ####RADHA LABORATORYCLIA [id number] [place] [address] [place] AMERICAChloride [Moles/Vol]104 mmol/ZXpsmzq92-171Xhlgggpo HospitalComment on above:Order Comment: Specimen Type: BLOOD SPECIMENOrdering Facility: [facility] Address:[address] [place], [place] [address]Performed By: #### 59581-2, , 2776-08 ####RADHA LABORATORYCLIA [id number] [place] [address] [place] AMERICACO2 [Moles/Vol]25 mmol/UJmafwq70-62Vrdjoznw HospitalComment on above:Order Comment: Specimen Type: BLOOD SPECIMENOrdering Facility: [facility] Address:[address] [place], [place] [address]Performed By: #### 49047-7, 16587-2, 2776-08 ####RADHA LABORATORYCLIA [id number] [place] [address] [place] AMERICACreatinine [Mass/Vol]0.86 mg/dLNormal0.73-1.22 [facility] HospitalComment on above:Order Comment: Specimen Type: BLOOD SPECIMENOrdering Facility: [facility] Address:[address] [place], [place] [address]Performed By: #### 48658-2, , 2776-08 ####[facility] LABORATORYCLIA [id number] [place] [address] [place] AMERICACreatinine and Glomerular filtration rate.predicted panel (S/P/Bld)109 mL/min/1.73m???Normal>=60FaGood Samaritan Medical CenterComment on above:Order Comment: Specimen Type: BLOOD SPECIMENOrdering Facility: [facility] Address:[address] [place], [place] [address]Result Comment: Estimated Glomerular Filtration Rate (eGFR) is calculated using the 2020 CKD-EPI creatinine equation. This equation utilizes serum creatinine, sex, and age as parameters. The creatinine assay has traceable calibration to isotope dilution-mass spectrometry. Refer to KDIGO guidelines for clinical interpretation. In patients with unstable renal function, e.g. those with acute kidney injury, the eGFR may not accurately reflect actual GFR.Performed By: #### 98979-4, 92899-4, 2776-08 ####RADHA LABORATORYCLIA [id number] [place] [address] [place] AMERICAGlucose [Mass/Vol]79 mg/fEEqkjkz27-43Dqvhhnlq Hospital Comment on above:Order Comment: Specimen Type: BLOOD SPECIMENOrdering Facility: [facility] Address:[address] [place], [place] [address]Result Comment: The [place] Diabetes Association (ADA) provides guidance for cutoff values for fasting glucose and random glucose. The ADA defines fasting as no caloric intake for at least 8 hours. Fasting plasma glucose results between 100 to 125 mg/dL indicate increased risk for diabetes (prediabetes).Fasting plasma glucose results greater than or equal to 126 mg/dL meet the criteria for diagno sis of diabetes. In the absence of unequivocal hyperglycemia, results should be confirmed by repeattesting. In a patient with classic symptoms of hyperglycemia or hyperglycemic crisis, random plasmaglucose results greater than or equal to 200 mg/dL meet the criteria for diagnosis of diabetes.Reference: Standards of Medical Care in Diabetes 2016, [place] [employer] Association. Diabetes Care. 2016.39(Suppl 1).Performed By: #### 05366-3, , 2776-08 ####RADHA LABORATORYCLIA [id number] [place] [address] [place] AMERICAPotassium [Moles/Vol]4.0 mmol/LNormal3.7-5.1Fmiravista behavioral health center HospitalComment on above:Order Comment: Specimen Type: BLOOD SPECIMENOrdering Facility: [facility] Address:[address] [place], [place] [address]Performed By: #### 90067-5, , 2776-08 ####RADHA LABORATORYCLIA [id number] [place] [address] [place] AMERICAProtein [Mass/Vol]6.9 g/dL Normal6.3-8.0[facility] HospitalComment on above:Order Comment: Specimen Type: BLOOD SPECIMENOrdering Facility: [facility] Address:[address] [place], [place] [address]Performed By: #### 86391-3, , 2776-08 ####RADHA LABORATORYCLIA [id number] [place] [address] [place] AMERICASodium [Moles/Vol]138 mmol/MVaiiwf571-500Mhiclnfs HospitalComment on above:Order Comment: Specimen Type: BLOOD SPECIMENOrdering Facility: [facility] Address:[address] [place] [id number] By: #### 96003-0, 05742-2, 2777-1 ####RADHA LABORATORYCLIA [id number] [place] [address] [place] AMERICAUrea nitrogen [Mass/Vol]18 mg/dLNormal9-24[facility] HospitalComment on above:Order Comment: Specimen Type: BLOOD SPECIMENOrdering Facility: [facility] Address:[address] [place], [place] [address]Performed By: #### 17633- 8, 29648-1, 2777- ####RADHA LABORATORYCLIA [id number] [place] [id number] [facility] HOMEMagnesium SerPl-mCncon 07-15-2024 Magnesium [Mass/Vol]1.9 mg/dLNormal1.7-2.3Fmiravista behavioral health center HospitalComment on above: Order Comment: Specimen Type: BLOOD SPECIMENOrdering Facility: [facility] Address:[address] [place], [place] [address]Performed By: #### 42461- 8, 38161-3, 2777 ####MARILEECUMBERLAND MEMORIAL HOSPITALCLIA [id number] [place] [id number] [facility] AMERICAPhosphate SerPl-mCncon 07-15-2024 Phosphate [Mass/Vol]3.0 mg/dLNormal2.7-4.8[facility] HospitalComment on above: Order Comment: Specimen Type: BLOOD SPECIMENOrdering Facility: [facility] Address:[address] [place] [address]Zyiivfxln By: #### 01136- 8, 72599-7, 2777 ####[facility] LABORATORYCLIA [id number] [place] [id number] [place] AMERICACASE MANAGEMon 35-38-5084IVLV MANAGEMNormalFaGrover Memorial Hospital panel Auto (Bld)on 79-64-8925Ssvkltpzzjf distribution width (RBC) [Ratio]13.5 %Vqcbeu30.5-15.0[facility] HospitalComment on above:Order Comment: Specimen Type: BLOOD SPECIMENOrdering Facility: [facility] Address:[address] [place], [place] [address]Performed By: #### 95605-2 ####RADHA LABORATORYCLIA [id number] [address] ST[address]ETHematocrit (Bld) [Volume fraction]35.3 %Low 39.0-51.0[facility] HospitalComment on above:Order Comment: Specimen Type: BLOOD SPECIMENOrdering Facility: [facility] Address:[address] [place], [place] [address]Performed By: #### 69965-2 ####RADHA LABORATORYCLIA [id number] [address] Hemoglobin (Bld) [Mass/Vol]11.4 g/dLLow13.0-17.0[facility] HospitalComment on above:Order Comment: Specimen Type: BLOOD SPECIMENOrdering Facility: [facility] Address:[address] [place], [place] [address]Performed By: #### 10862-4 ####RADHA LABORATORYCLIA [id number] [address] (RBC) [Entitic mass]28.9 bkDyvbol74.0-34.0 [facility] HospitalComment on above:Order Comment: Specimen Type: BLOOD SPECIMENOrdering Facility: [facility] Address:[address] [place], [place] [address]Performed By: #### 89242-7 ####RADHA LABORATORYCLIA [id number] [place] [id number] [facility] HOMEMCHC (RBC) [Mass/Vol]32.3 g/kNPezgxt99.5-36.0[facility] HospitalComment on above:Order Comment: Specimen Type: BLOOD SPECIMENOrdering Facility: [facility] Address:[address] [place], [place] [address]Performed By: #### 82772- 2 ####RADHA LABORATORYCLIA [id number] [address]MCV (RBC) [Entitic vol]89.4 mPLmgwys28.0-100.0[facility] HospitalComment on above:Order Comment: Specimen Type: BLOOD SPECIMENOrdering Facility: [facility] Address:[address] [place], [place] [address]Performed By: #### 77003-7 ####RADHA LABORATORYCLIA [id number] [place] [address] [place] AMERICANucleated RBC (Bld) [#/Vol]10*3/uLNormal<0.01[facility] HospitalComment on above:Order Comment: Specimen Type: BLOOD SPECIMENOrdering Facility: [facility] Address:[address] [place], [place] [address]Performed By: #### 27532-8 ####RADHA LABORATORYCLIA [id number] [place] [address] [place] AMERICAPlatelet mean volume (Bld) [Entitic vol]9.7 fLNormal 9.0-12.7Fmiravista behavioral health center HospitalComment on above:Order Comment: Specimen Type: BLOOD SPECIMENOrdering Facility: [facility] Address:[address] [place], [place] [address]Performed By: #### 38096-8 ####RADHA LABORATORYCLIA [id number] [place] [address] [facility] OF [place] Platelets (Bld) [#/Vol]325 10*3/mNNlusbh862-404Mfkdfnwx HospitalComment on above:Order Comment: Specimen Type: BLOOD SPECIMENOrdering Facility: [facility] Address:[address] [place], [place] [address]Performed By: #### 75193-5 ####RADHA LABORATORYCLIA [id number] [place] [address] [place] AMERICARBC (Bld) [#/Vol]3.95 10*6/uLLow4.20-6.00[facility] HospitalComment on above:Order Comment: Specimen Type: BLOOD SPECIMENOrdering Facility: [facility] Address:[address] [place], [place] [address]Performed By: #### 52313-8 ####RADHA LABORATORYCLIA [id number] [place] [address] [place] AMERICAWBC (Bld) [#/Vol]8.07 10*3/uLNormal3.70-11.00[facility] HospitalComment on above:Order Comment: Specimen Type: BLOOD SPECIMENOrdering Facility: [facility] Address:[address] [place], [place] [address]Performed By: #### 28204-2 ####RADHA LABORATORYCLIA [id number] [place] [address] [place] AMERICACONSULTon 86-04-0475OOICCTRWjqzzqSasfhkzm HospitalComprehensive metabolic 2000 panelon 13-42-9304Gynxrng [Mass/Vol]3.5 g/dLLow3.9-4.9FaGood Samaritan Medical CenterComment on above:Order Comment: Specimen Type: BLOOD SPECIMENOrdering Facility: [facility] Address:[address] [place], [place] [address]Performed By: #### 2777-1, , ####RADHA LABORATORYCLIA [id number] [place] [id number] [place] AMERICAALP [Catalytic activity/Vol]72 U/WGelvqb38-348Xkevrilx HospitalComment on above: Order Comment: Specimen Type: BLOOD SPECIMENOrdering Facility: [facility] Address:[address] [place], [place] [address]Performed By: #### 2777- 1, , ####RADHA LABORATORYCLIA [id number] [place] [address] [place]ALT [Catalytic activity/Vol]49 U/L Dgjmxo53-49Znskxsxu HospitalComment on above:Order Comment: Specimen Type: BLOOD SPECIMENOrdering Facility: [facility] Address:[address] [place], [place] [address]Performed By: #### 2777-1, , ####RADHA LABORATORYCLIA [id number] [place] [address] [place] AMERICAAnion gap [Moles/Vol]11 mmol/LNormal8-15[facility] HospitalComment on above:Order Comment: Specimen Type: BLOOD SPECIMENOrdering Facility: [facility] Address:[address] [place], [place] [address]Performed By: #### 2777-1, , ####RADHA LABORATORYCLIA [id number] [place] [id number] [place] AMERICAAST [Catalytic activity/Vol]29 U/BMbagrt87-01Hbcjkwwv HospitalComment on above:Order Comment: Specimen Type: BLOOD SPECIMENOrdering Facility: [facility] Address:[address] [place], [place] [address]Performed By: #### 2777-1, , ####RADHA LABORATORYCLIA [id number] [place] [address] [place] AMERICABilirubin [Mass/Vol]0.4 mg/dLNormal0.2-1.3Fmiravista behavioral health center HospitalComment on above:Order Comment: Specimen Type: BLOOD SPECIMENOrdering Facility: [facility] Address:[address] [place], [place] [address]Performed By: #### 2777-1, , ####RADHA LABORATORYCLIA [id number] [place] [id number] [place] AMERICACalcium [Mass/Vol]8.9 mg/dL Normal8.5-10.2Fmiravista behavioral health center HospitalComment on above:Order Comment: Specimen Type: BLOOD SPECIMENOrdering Facility: [facility] Address:[address] [place], [place] [address]Performed By: #### 2777-1, , ####RADHA LABORATORYCLIA [id number] [place] [address] [place] AMERICAChloride [Moles/Vol]104 mmol/RBxqapx38-753Oydidiyl HospitalComment on above:Order Comment: Specimen Type: BLOOD SPECIMENOrdering Facility: [facility] Address:[address] [place] [address] [id number] By: #### 2777-1, , ####RADHA LABORATORYCLIA [id number] [place] [id number] [place] OF AMERICACO2 [Moles/Vol]25 mmol/GQimlzm89-11Nsqrzruh HospitalComment on above:Order Comment: Specimen Type: BLOOD SPECIMENOrdering Facility: [facility] Address:[address] [place], [place] [address]Performed By: #### 2777-1, , ####RADHA LABORATORYCLIA [id number] [place] [id number] [facility]ICAL CENTERCreatinine [Mass/Vol]0.81 mg/dLNormal0.73-1.22 [facility] HospitalComment on above:Order Comment: Specimen Type: BLOOD SPECIMENOrdering Facility: [facility] Address:[address] [place], [place] [address]Performed By: #### 2777-1, , ####[facility] LABORATORYCLIA [id number] [address] OF AMERICACreatinine and Glomerular filtration rate.predicted panel (S/P/Bld)111 mL/min/1.73m???Normal>=60[facility] HospitalComment on above:Order Comment: Specimen Type: BLOOD SPECIMENOrdering Facility: [facility] Address:[address] [place], [place] [id number] Comment: Estimated Glomerular Filtration Rate (eGFR) is calculated using the 2020 CKD-EPI creatinine equation. This equation utilizes serum creatinine, sex, and age as parameters. The creatinine assay has traceable calibration to isotope dilution-mass spectrometry. Refer to KDIGO guidelines for clinical interpretation. In patients with unstable renal function, e.g. those with acute kidney injury, the eGFR may not accurately reflect actual GFR.Performed By: #### 2777-1, 58650-7, 76169-6 ####RADHA LABORATORYCLIA [id number] [place] [address] [place] OF AMERICAGlucose [Mass/Vol]77 mg/eBGgcbft07-68[facility] Comment on above:Order Comment: Specimen Type: BLOOD SPECIMENOrdering Facility: [facility] Address:[address] [place], [place] [id number] Comment: The [place] Diabetes Association (ADA) provides guidance for cutoff values for fasting glucose and random glucose. The ADA defines fasting as no caloric intake for at least 8 hours. Fasting plasma glucose results between 100 to 125 mg/dL indicate increased risk for diabetes (prediabetes).Fasting plasma glucose results greater than or equal to 126 mg/dL meet the criteria for diagno sis of diabetes. In the absence of unequivocal hyperglycemia, results should be confirmed by repeattesting. In a patient with classic symptoms of hyperglycemia or hyperglycemic crisis, random plasmaglucose results greater than or equal to 200 mg/dL meet the criteria for diagnosis of diabetes.Reference: Standards of Medical Care in Diabetes 2016, [place] Diabetes Association. Diabetes Care. 2016.39(Suppl 1).Performed By: #### 2777-1, , ####RADHA LABORATORYCLIA [id number] [place] [id number] [place] OF AMERICAPotassium [Moles/Vol]4.2 mmol/LNormal3.7-5.1FWorcester Recovery Center and HospitalComment on above:Order Comment: Specimen Type: BLOOD SPECIMENOrdering Facility: [facility] Address:[address] [place] [address] 85[address]Hhddczufl By: #### 2777-1, , ####RADHA LABORATORYCLIA [id number] [place] [address] [place] OF AMERICAProtein [Mass/Vol]6.6 g/dL Normal6.3-8.0FaGood Samaritan Medical CenterComment on above:Order Comment: Specimen Type: BLOOD SPECIMENOrdering Facility: [facility] Address:[address] [place], [place] [address]Performed By: #### 2777-1, , ####RADHA LABORATORYCLIA [id number] [place] [address] [place] AMERICASodium [Moles/Vol]140 mmol/YUmyizk694-240Uiaeouvx HospitalComment on above:Order Comment: Specimen Type: BLOOD SPECIMENOrdering Facility: [facility] Address:[address] [place], [place] [address]Performed By: #### 2777-1, , ####RADHA LABORATORYCLIA [id number] [place] [id number] [place] OF AMERICAUrea nitrogen [Mass/Vol]18 mg/dLNormal9-24[facility] HospitalComment on above:Order Comment: Specimen Type: BLOOD SPECIMENOrdering Facility: [facility] Address:[address] [place], [place] [address]Performed By: #### 2777- 1, , ####RADHA LABORATORYCLIA [id number] [facility] [place] [address] [place] AMERICAMagnesium SerPl-mCncon 07-14-2024 Magnesium [Mass/Vol]2.0 mg/dLNormal1.7-2.3[facility] HospitalComment on above: Order Comment: Specimen Type: BLOOD SPECIMENOrdering Facility: [facility] Address:[address] [place], [place] [address]Performed By: #### 2777- 1, , ####RADHA LABORATORYCLIA [id number] [facility]BRENDAN [place] [id number] [place] OF AMERICAPhosphate SerPl-mCncon 07-14-2024 Phosphate [Mass/Vol]2.9 mg/dLNormal2.7-4.8[facility] HospitalComment on above: Order Comment: Specimen Type: BLOOD SPECIMENOrdering Facility: [facility] Address:[address] [place], [place] [address]Performed By: #### 2777- 1, , ####RADHA LABORATORYCLIA [id number] [facility] [place] [id number] [place] OF AMERICACASE MANAGEMon 81-55-2779GQUB MANAGEMNormalFaGrover Memorial Hospital panel Auto (Bld)on 60-91-5569Jtyikpjifrr distribution width (RBC) [Ratio]13.4 %Mijaqr64.5-15.0[facility] HospitalComment on above:Order Comment: Specimen Type: BLOOD SPECIMENOrdering Facility: [facility] Address:[address] [place], [place] [address]Performed By: #### 71809-5 ####RADHA LABORATORYCLIA [id number] [address] ST[address]ETHematocrit (Bld) [Volume fraction]35.0 %Low 39.0-51.0[facility] HospitalComment on above:Order Comment: Specimen Type: BLOOD SPECIMENOrdering Facility: [facility] Address:[address] [place], [place] [address]Performed By: #### 76442-8 ####RADHA LABORATORYCLIA [id number] [address] Hemoglobin (Bld) [Mass/Vol]11.2 g/dLLow13.0-17.0[facility] HospitalComment on above:Order Comment: Specimen Type: BLOOD SPECIMENOrdering Facility: [facility] Address:[address] [place], [place] [address]Performed By: #### 21782-7 ####RADHA LABORATORYCLIA [id number] [address]ETMCH (RBC) [Entitic mass]28.7 hzJgkxdr54.0-34.0 [facility] HospitalComment on above:Order Comment: Specimen Type: BLOOD SPECIMENOrdering Facility: [facility] Address:[address] [place], [place] [address]Performed By: #### 03653-3 ####RADHA LABORATORYCLIA [id number] [address]ETMCHC (RBC) [Mass/Vol]32.0 g/oHDzewoh47.5-36.0[facility] HospitalComment on above:Order Comment: Specimen Type: BLOOD SPECIMENOrdering Facility: [facility] Address:[address] [place], [place] [address]Performed By: #### 27649- 2 ####MARILEERAYMUNDO LABORATORYCLIA [id number] [place] [address] [facility] HOMEMCV (RBC) [Entitic vol]89.7 fQYudisd91.0-100.0[facility] HospitalComment on above:Order Comment: Specimen Type: BLOOD SPECIMENOrdering Facility: [facility] Address:[address] [place], [place] [address]Performed By: #### 99468-2 ####[facility] LABORATORYCLIA [id number] [place] [address] [facility]ITALucleated RBC (Bld) [#/Vol]10*3/uLNormal<0.01[facility] HospitalComment on above:Order Comment: Specimen Type: BLOOD SPECIMENOrdering Facility: [facility] Address:[address] [place], [place] [address]Performed By: #### 99540-9 ####[facility] LABORATORYCLIA [id number] [place] [address] [facility] HOMEPlatelet mean volume (Bld) [Entitic vol]9.7 fLNormal 9.0-12.7Fmiravista behavioral health center HospitalComment on above:Order Comment: Specimen Type: BLOOD SPECIMENOrdering Facility: [facility] Address:[address] [place], [place] [address]Performed By: #### 32466-3 ####RADHA LABORATORYCLIA [id number] [place] [address] [facility] Platelets (Bld) [#/Vol]307 10*3/aJJyneuy733-270Faypudgq HospitalComment on above:Order Comment: Specimen Type: BLOOD SPECIMENOrdering Facility: [facility] Address:[address] [place], [place] [address]Performed By: #### 12877-3 ####RADHA LABORATORYCLIA [id number] [place] [address] [place] [facility] MEDICAL CENTERRBC (Bld) [#/Vol]3.90 10*6/uLLow4.20-6.00[facility] HospitalComment on above:Order Comment: Specimen Type: BLOOD SPECIMENOrdering Facility: [facility] Address:[address] [place], [place] [address]Performed By: #### 67444-5 ####RADHA LABORATORYCLIA [id number] [place] [address] [place] OF AMERICAWBC (Bld) [#/Vol]8.17 10*3/uLNormal3.70-11.00[facility] HospitalCommymichigan medical center sault on above:Order Comment: Specimen Type: BLOOD SPECIMENOrdering Facility: [facility] Address:[address] [place], [place] [address]Performed By: #### 90437-5 ####RADHA LABORATORYCLIA [id number] [place] [address] [facility] BACTERIA BLD CULTon 93-09-2600DEK BACTERIA BLD CULT GRAM STAIN: [facility] BACTERIA BLD CULTThis blood culture had less than the recommended 8 ml per bottle, which could decrease the sensitivity of the test. [facility] Centerprehensive metabolic 2000 panelon 57-35-1338Uzqtbuc [Mass/Vol] 3.3 g/dLLow3.9-4.9[facility] HospitalCommymichigan medical center sault on above:Order Comment: Specimen Type: BLOOD SPECIMENOrdering Facility: [facility] Address:[address] [place], [place] [address]Performed By: #### 31210-7, , 2776-08 ####RADHA LABORATORYCLIA [id number] [place] [address] [place] AMERICAALP [Catalytic activity/Vol]65 U/POfuoek88-984Rstxfbqf HospitalComment on above:Order Comment: Specimen Type: BLOOD SPECIMENOrdering Facility: [facility] Address:[address] [place], [place] [address]Performed By: #### 01836-1, , 2776- ####RADHA LABORATORYCLIA [id number] [place] [address] [place] AMERICAALT [Catalytic activity/Vol]39 U/GDasudz56-56Dowsdmif HospitalComment on above:Order Comment: Specimen Type: BLOOD SPECIMENOrdering Facility: [facility] Address:[address] [place] [id number] By: #### 77889- 8, , 2776-08 ####RADHA LABORATORYCLIA [id number] [place] [address] [place] AMERICAAnion gap [Moles/Vol]8 mmol/LNormal 8-15[facility] HospitalComment on above:Order Comment: Specimen Type: BLOOD SPECIMENOrdering Facility: [facility] Address:[address] [place], [place] [address]Performed By: #### 96299-7, , 2776-08 ####RADHA LABORATORYCLIA [id number] [place] [address] [place] AMERICAAST [Catalytic activity/Vol]27 U/VGyheir46-00Rzptsagf HospitalComment on above:Order Comment: Specimen Type: BLOOD SPECIMENOrdering Facility: [facility] Address:[address] [place], [place] [address]Performed By: #### 24910-8, , 2776-08 ####RADHA LABORATORYCLIA [id number] [place] [address] [place] AMERICABilirubin [Mass/Vol]0.4 mg/dL Normal0.2-1.3Fmiravista behavioral health center HospitalComment on above:Order Comment: Specimen Type: BLOOD SPECIMENOrdering Facility: [facility] Address:[address] [place], [place] [address]Performed By: #### 69009-0, , 2776-08 ####RADHA LABORATORYCLIA [id number] [place] [address] [place] AMERICACalcium [Mass/Vol]8.6 mg/dLNormal8.5-10.2Fmiravista behavioral health center HospitalComment on above:Order Comment: Specimen Type: BLOOD SPECIMENOrdering Facility: [facility] Address:[address] [place], [place] [address]Performed By: #### 25449-3, 81191-3, 2776- ####[facility] LABORATORYCLIA [id number] [place] [address] [place] Chloride [Moles/Vol]106 mmol/IRnlgvq80-499Hiinupmo HospitalComment on above: Order Comment: Specimen Type: BLOOD SPECIMENOrdering Facility: [facility] Address:[address] [place], [place] [address]Performed By: #### 17126- 8, 43805-6, 2776-08 ####[facility] LABORATORYCLIA [id number] [place] [id number] [place] AMERICACO2 [Moles/Vol]25 mmol/WKxzbpc68-33 [facility] HospitalComment on above:Order Comment: Specimen Type: BLOOD SPECIMENOrdering Facility: [facility] Address:[address] [place], [place] [address]Performed By: #### 25717-7, , 2776-08 ####[facility] LABORATORYCLIA [id number] [place] [address] [place] AMERICACreatinine [Mass/Vol]0.84 mg/dLNormal0.73-1.22[facility] HospitalComment on above:Order Comment: Specimen Type: BLOOD SPECIMENOrdering Facility: [facility] Address:[address] [place], [place] [address] Performed By: #### 92725-4, , 2776-08 ####[facility] LABORATORYCLIA [id number] [place] [address] [place] Creatinine and Glomerular filtration rate.predicted panel (S/P/Bld)110 mL/min/1.73m???Normal>=60FaGood Samaritan Medical CenterCommymichigan medical center sault on above:Order Comment: Specimen Type: BLOOD SPECIMENOrdering Facility: [facility] Address:[address] [place], [place] [address]Result Comment: Estimated Glomerular Filtration Rate (eGFR) is calculated using the 2020 CKD-EPI creatinine equation. This equation utilizes serum creatinine, sex, and age as parameters. The creatinine assay has traceable calibration to isotope dilution-mass spectrometry. Refer to KDIGO guidelines for clinical interpretation. In patients with unstable renal function, e.g. those with acute kidney injury, the eGFR may not accurately reflect actual GFR.Performed By: #### 65121-0, , 2776-08 ####RADHA LABORATORYCLIA [id number] [place] [address] [place] AMERICAGlucose [Mass/Vol]79 mg/uGLuyylh57-39Nrfugnpm Hospital Comment on above:Order Comment: Specimen Type: BLOOD SPECIMENOrdering Facility: [facility] Address:[address] [place] [id number] Comment: The [place] Diabetes Association (ADA) provides guidance for cutoff values for fasting glucose and random glucose. The ADA defines fasting as no caloric intake for at least 8 hours. Fasting plasma glucose results between 100 to 125 mg/dL indicate increased risk for diabetes (prediabetes).Fasting plasma glucose results greater than or equal to 126 mg/dL meet the criteria for diagno sis of diabetes. In the absence of unequivocal hyperglycemia, results should be confirmed by repeattesting. In a patient with classic symptoms of hyperglycemia or hyperglycemic crisis, random plasmaglucose results greater than or equal to 200 mg/dL meet the criteria for diagnosis of diabetes.Reference: Standards of Medical Care in Diabetes 2016, [place] [employer] Association. Diabetes Care. 2016.39(Suppl 1).Performed By: #### 51456-7, , 2776-08 ####ARDHA LABORATORYCLIA [id number] [place] [address] [place] AMERICAPotassium [Moles/Vol]4.1 mmol/LNormal3.7-5.1FWorcester Recovery Center and HospitalComment on above:Order Comment: Specimen Type: BLOOD SPECIMENOrdering Facility: [facility] Address:[address] [place], [place] [address]Hahvkqqkb By: #### 77116-9, , 2776-08 ####[facility] LABORATORYCLIA [id number] [place] [address] [place] AMERICAProtein [Mass/Vol]6.0 g/dLLow 6.3-8.0[facility] HospitalComment on above:Order Comment: Specimen Type: BLOOD SPECIMENOrdering Facility: [facility] Address:[address] [place], [place] [address]Performed By: #### 37750-0, 55530-1, 2776-08 ####RADHA LABORATORYCLIA [id number] [place] [address] [place] AMERICASodium [Moles/Vol]139 mmol/JPmldbz008-833Xspnmdtw HospitalComment on above:Order Comment: Specimen Type: BLOOD SPECIMENOrdering Facility: [facility] Address:[address] [place], [place] [address]Performed By: #### 93273-3, , 2776-08 ####RADHA LABORATORYCLIA [id number] [place] [address] [place] AMERICAUrea nitrogen [Mass/Vol]14 mg/dLNormal9-24[facility] HospitalComment on above:Order Comment: Specimen Type: BLOOD SPECIMENOrdering Facility: [facility] Address:[address] [place], [place] [address]Performed By: #### 45618-7, , 2776-08 ####RADHA LABORATORYCLIA [id number] [place] [address] [place] AMERICAMagnesium SerPl-mCncon 40-51-6806Nazfdnaxr [Mass/Vol]2.0 mg/dLNormal1.7-2.3[facility] HospitalComment on above:Order Comment: Specimen Type: BLOOD SPECIMENOrdering Facility: [facility] Address:[address] [place], [place] [address]Performed By: #### 41472-0, , 2776-08 ####RADHA LABORATORYCLIA [id number] [place] [address] [place] AMERICANo Panel Informationon 90-47-1427FXB BACTERIA BLD CULT CULTURE, BLOOD: No growth 5 days [facility] HealthcareOriginal Ordering Provider: AMANDA RosePhosphate SerPl-mCncon 67-48-4643Jbwrsnsto [Mass/Vol]2.2 mg/dLLow 2.7-4.8[facility] HospitalComment on above:Order Comment: Specimen Type: BLOOD SPECIMENOrdering Facility: [facility] Address:[address] [place], [place] [address]Performed By: #### 45448-7, 80125-4, 2777-1 ####RADHA LABORATORYCLIA [id number] [place] [address] [place] AMERICACASE MANAGEMon 83-97-7940ZDPL MANAGEMNormalFaGrover Memorial Hospital panel Auto (Bld)on 39-47-9352Pldcirgjigh distribution width (RBC) [Ratio]13.3 %Normal 11.5-15.0[facility] HospitalComment on above:Order Comment: Specimen Type: BLOOD SPECIMENOrdering Facility: [facility] Address:[address] [place], [place] [address]Performed By: #### 21543-8 ####RADHA LABORATORYCLIA [id number] [place] [address] [facility] Hematocrit (Bld) [Volume fraction]31.9 %Low39.0-51.0[facility] HospitalComment on above:Order Comment: Specimen Type: BLOOD SPECIMENOrdering Facility: [facility] Address:[address] [place], [place] [address]Performed By: #### 06597-3 ####RADHA LABORATORYCLIA [id number] [place] [address] [facility] MEDICAL CENTERHemoglobin (Bld) [Mass/Vol]10.4 g/dLLow13.0-17.0 [facility] HospitalComment on above:Order Comment: Specimen Type: BLOOD SPECIMENOrdering Facility: [facility] Address:[address] [place], [place] [address]Performed By: #### 57092-4 ####RADHA LABORATORYCLIA [id number] [place] [address] [place] AMERICAMCH (RBC) [Entitic mass]29.1 dtZlmayp49.0-34.0[facility] HospitalComment on above: Order Comment: Specimen Type: BLOOD SPECIMENOrdering Facility: [facility] Address:[address] [place], [place] [address]Performed By: #### 43149- 2 ####RADHA LABORATORYCLIA [id number] [place] [address] [facility] HOMEMCHC (RBC) [Mass/Vol]32.6 g/xJDclubp97.5-36.0[facility] HospitalComment on above:Order Comment: Specimen Type: BLOOD SPECIMENOrdering Facility: [facility] Address:[address] [place], [place] [address]Performed By: #### 59385-7 ####RADHA LABORATORYCLIA [id number] [address]ETMCV (RBC) [Entitic vol] 89.4 fIOgrzix88.0-100.0[facility] HospitalComment on above:Order Comment: Specimen Type: BLOOD SPECIMENOrdering Facility: [facility] Address:[address] [place], [place] [address]Performed By: #### 72843-4 ####RADHA LABORATORYCLIA [id number] [address]ucleated RBC (Bld) [#/Vol]10*3/uLNormal<0.01[facility] HospitalComment on above:Order Comment: Specimen Type: BLOOD SPECIMENOrdering Facility: [facility] Address:[address] [place], [place] [address]Performed By: #### 79226-1 ####RADHA LABORATORYCLIA [id number] [place] [address] [facility] HOMEPlatelet mean volume (Bld) [Entitic vol]10.0 fL Normal9.0-12.7Fmiravista behavioral health center HospitalComment on above:Order Comment: Specimen Type: BLOOD SPECIMENOrdering Facility: [facility] Address:[address] [place], [place] [address]Performed By: #### 33462-6 ####RADHA LABORATORYCLIA [id number] [place] [address] [place] Platelets (Bld) [#/Vol]266 10*3/rZPsbkpz400-924Slgpilig HospitalComment on above:Order Comment: Specimen Type: BLOOD SPECIMENOrdering Facility: [facility] Address:[address] [place], [place] [address]Performed By: #### 60681-6 ####RADHA LABORATORYCLIA [id number] [place] [address] [place] AMERICARBC (Bld) [#/Vol]3.57 10*6/uLLow4.20-6.00[facility] HospitalComment on above:Order Comment: Specimen Type: BLOOD SPECIMENOrdering Facility: [facility] Address:[address] [place], [place] [address]Performed By: #### 80666-5 ####RADHA LABORATORYCLIA [id number] [place] [address] [facility] MEDICAL CENTERWBC (Bld) [#/Vol]7.93 10*3/uLNormal3.70-11.00[facility] HospitalComment on above:Order Comment: Specimen Type: BLOOD SPECIMENOrdering Facility: [facility] Address:[address] [place], [place] [address]Performed By: #### 68327-5 ####RADHA LABORATORYCLIA [id number] [place] [address] [facility] OF AMERICACONSULTon 00-40-7062IPCNJYUHrjvvvBpfatdth HospitalComprehensive metabolic 2000 panelon 29-98-3097Duvcngy [Mass/Vol]2.8 g/dLLow3.9-4.9[facility]on HospitalComment on above:Order Comment: Specimen Type: BLOOD SPECIMENOrdering Facility: [facility] Address:[address] [place], [place] [address]Performed By: #### 2777-1, 09560-2, 20509-5 ####RADHA LABORATORYCLIA [id number] [place] [address] [facility]UR[facility] HOMEALP [Catalytic activity/Vol]55 U/XXvhenp97-206Eayshgzh HospitalComment on above: Order Comment: Specimen Type: BLOOD SPECIMENOrdering Facility: [facility] Address:[address] [place], [place] [address]Performed By: #### 2777- 1, 72774-3, ####RADHA LABORATORYCLIA [id number] [place] [address] [place] AMERICAALT [Catalytic activity/Vol]24 U/L Sefavj65-04Yyjvwkyc HospitalComment on above:Order Comment: Specimen Type: BLOOD SPECIMENOrdering Facility: [facility] Address:[address] [place], [place] [address]Performed By: #### 2777-1, 00766-8, ####RADHA LABORATORYCLIA [id number] [place] [address] [place] AMERICAAnion gap [Moles/Vol]8 mmol/LNormal8-15[facility] HospitalComment on above: Order Comment: Specimen Type: BLOOD SPECIMENOrdering Facility: [facility] Address:[address] [place], [place] [address]Performed By: #### 2777- 1, , ####RADHA LABORATORYCLIA [id number] [place] [id number] [place] AMERICAAST [Catalytic activity/Vol]18 U/L Qgwaqt05-64Nkefipkh HospitalComment on above:Order Comment: Specimen Type: BLOOD SPECIMENOrdering Facility: [facility] Address:[address] [place], [place] [address]Performed By: #### 2777-1, 46103-7, ####RADHA LABORATORYCLIA [id number] [place] [address] [place] AMERICABilirubin [Mass/Vol]0.4 mg/dLNormal0.2-1.3Fmiravista behavioral health center HospitalComment on above:Order Comment: Specimen Type: BLOOD SPECIMENOrdering Facility: [facility] Address:[address] [place], [place] [address]Performed By: #### 2777-1, 54566-3, ####RADHA LABORATORYCLIA [id number] [place] [id number] [place] OF AMERICACalcium [Mass/Vol]8.1 mg/dLLow 8.5-10.2Fmiravista behavioral health center HospitalComment on above:Order Comment: Specimen Type: BLOOD SPECIMENOrdering Facility: [facility] Address:[address] [place], [place] [address]Performed By: #### 2777-1, 43836-7, ####RADHA LABORATORYCLIA [id number] [place] [id number] [place] OF AMERICAChloride [Moles/Vol]109 mmol/XErvc76-764Jyusvjch HospitalComment on above:Order Comment: Specimen Type: BLOOD SPECIMENOrdering Facility: [facility] Address:[address] [place], [place] [address]Performed By: #### 2777-1, , ####RADHA LABORATORYCLIA [id number] [place] [address] [place] OF AMERICACO2 [Moles/Vol]25 mmol/LNormal 22-30[facility] HospitalComment on above:Order Comment: Specimen Type: BLOOD SPECIMENOrdering Facility: [facility] Address:[address] [place], [place] [address]Performed By: #### 2777-1, , ####RADHA LABORATORYCLIA [id number] [place] [id number] [place] AMERICACreatinine [Mass/Vol]0.83 mg/dLNormal0.73-1.22[facility] HospitalComment on above:Order Comment: Specimen Type: BLOOD SPECIMENOrdering Facility: [facility] Address:[address] [place] [address] Performed By: #### 2777-1, 72039-9, ####RADHA LABORATORYCLIA [id number] [place] [address] [place] Creatinine and Glomerular filtration rate.predicted panel (S/P/Bld)110 mL/min/1.73m???Normal>=60[facility] HospitalComment on above:Order Comment: Specimen Type: BLOOD SPECIMENOrdering Facility: [facility] Address:[address] [id number] Comment: Estimated Glomerular Filtration Rate (eGFR) is calculated using the 2020 CKD-EPI creatinine equation. This equation utilizes serum creatinine, sex, and age as parameters. The creatinine assay has traceable calibration to isotope dilution-mass spectrometry. Refer to KDIGO guidelines for clinical interpretation. In patients with unstable renal function, e.g. those with acute kidney injury, the eGFR may not accurately reflect actual GFR.Performed By: #### 2777-1, 04686-5, ####RADHA LABORATORYCLIA [id number] [place] [address] [place] AMERICAGlucose [Mass/Vol]89 mg/aRAhatci36-97Wmxlgeyw Hospital Comment on above:Order Comment: Specimen Type: BLOOD SPECIMENOrdering Facility: [facility] Address:[address] [id number] Comment: The [place] Diabetes Association (ADA) provides guidance for cutoff values for fasting glucose and random glucose. The ADA defines fasting as no caloric intake for at least 8 hours. Fasting plasma glucose results between 100 to 125 mg/dL indicate increased risk for diabetes (prediabetes).Fasting plasma glucose results greater than or equal to 126 mg/dL meet the criteria for diagno sis of diabetes. In the absence of unequivocal hyperglycemia, results should be confirmed by repeattesting. In a patient with classic symptoms of hyperglycemia or hyperglycemic crisis, random plasmaglucose results greater than or equal to 200 mg/dL meet the criteria for diagnosis of diabetes.Reference: Standards of Medical Care in Diabetes 2016, [place] Diabetes Association. Diabetes Care. 2016.39(Suppl 1).Performed By: #### 2777-1, 17387-4, ####RADHA LABORATORYCLIA [id number] [place] [address] [place] AMERICAPotassium [Moles/Vol]3.6 mmol/LLow3.7-5.1FWorcester Recovery Center and HospitalComment on above:Order Comment: Specimen Type: BLOOD SPECIMENOrdering Facility: [facility] Address:[address] [place], [place] [address]Performed By: #### 2777-1, , ####RADHA LABORATORYCLIA [id number] [place] [address] [place] AMERICAProtein [Mass/Vol]5.2 g/dLLow 6.3-8.0[facility] HospitalComment on above:Order Comment: Specimen Type: BLOOD SPECIMENOrdering Facility: [facility] Address:[address] [place], [place] [address]Performed By: #### 2777-1, , ####RADHA LABORATORYCLIA [id number] [place] [address] [place] AMERICASodium [Moles/Vol]142 mmol/DPmvfar475-862Nciltlnl HospitalComment on above:Order Comment: Specimen Type: BLOOD SPECIMENOrdering Facility: [facility] Address:[address] [place], [place] [address]Performed By: #### 2777-1, , ####RADHA LABORATORYCLIA [id number] [place] [address] [place] AMERICAUrea nitrogen [Mass/Vol]14 mg/dLNormal9-24[facility] HospitalComment on above:Order Comment: Specimen Type: BLOOD SPECIMENOrdering Facility: [facility] Address:[address] [place], [place] [address]Performed By: #### 2777-1, , ####RADHA LABORATORYCLIA [id number] [place] [address] [place] AMERICAMagnesium SerPl-mCncon 50-53-6369Nvkrwgfmk [Mass/Vol]1.9 mg/dLNormal1.7-2.3Fmiravista [facility] center HospitalComment on above:Order Comment: Specimen Type: BLOOD SPECIMENOrdering Facility: [facility] Address:[address] [place], [place] [address]Performed By: #### 2777-1, 02793-1, ####RADHA LABORATORYCLIA [id number] [place] [address] [place] [facility] HOSPITALURSING PROGon 61-22-9033UPIJXTA PROGNormalValley Springs Behavioral Health HospitalPhosphate SerPl-mCncon 48-84-0222Qwucibphb [Mass/Vol]2.3 mg/dLLow2.7-4.8 [facility] HospitalComment on above:Order Comment: Specimen Type: BLOOD SPECIMENOrdering Facility: [facility] Address:[address] [place], [place] [address]Performed By: #### 2777-1, 19162-5, ####RADHA LABORATORYCLIA [id number] [place] [address] [place] [facility] MEDICAL CENTERCASE MANAGEMon 24-32-7388LMCH MANAGEMNormalValley Springs Behavioral Health HospitalCB panel Auto (Bld)on 46-18-6830Ylfcyixysci distribution width (RBC) [Ratio]13.4 %Normal 11.5-15.0[facility] HospitalComment on above:Order Comment: Specimen Type: BLOOD SPECIMENOrdering Facility: [facility] Address:[address] [place], [place] [address]Performed By: #### 36092-7 ####RADHA LABORATORYCLIA [id number] [place] [address] [place] Hematocrit (Bld) [Volume fraction]33.9 %Low39.0-51.0[facility] HospitalComment on above:Order Comment: Specimen Type: BLOOD SPECIMENOrdering Facility: [facility] Address:[address] [place], [place] [address]Performed By: #### 46869-7 ####RADHA LABORATORYCLIA [id number] [place] [address] [place] AMERICAHemoglobin (Bld) [Mass/Vol]11.3 g/dLLow13.0-17.0 [facility] HospitalComment on above:Order Comment: Specimen Type: BLOOD SPECIMENOrdering Facility: [facility] Address:[address] [place], [place] [address]Performed By: #### 38206-3 ####RADHA LABORATORYCLIA [id number] [address] (RBC) [Entitic mass]29.5 kfPaurey52.0-34.0[facility] HospitalComment on above: Order Comment: Specimen Type: BLOOD SPECIMENOrdering Facility: [facility] Address:[address] [place], [place] [address]Performed By: #### 66172- 2 ####RADHA LABORATORYCLIA [id number] [address] (RBC) [Mass/Vol]33.3 g/tREgjsoy13.5-36.0[facility] HospitalComment on above:Order Comment: Specimen Type: BLOOD SPECIMENOrdering Facility: [facility] Address:[address] [place], [place] [address]Performed By: #### 46348-1 ####RADHA LABORATORYCLIA [id number] [address] (RBC) [Entitic vol] 88.5 nEWomkbh79.0-100.0[facility] HospitalComment on above:Order Comment: Specimen Type: BLOOD SPECIMENOrdering Facility: [facility] Address:[address] [place], [place] [address]Performed By: #### 57419-4 ####RADHA LABORATORYCLIA [id number] [address]ucleated RBC (Bld) [#/Vol]10*3/uLNormal<0.01[facility] HospitalComment on above:Order Comment: Specimen Type: BLOOD SPECIMENOrdering Facility: [facility] Address:[address] [place], [place] [address]Performed By: #### 30384-9 ####RADHA LABORATORYCLIA [id number] [address]ETPlatelet mean volume (Bld) [Entitic vol]10.6 fL Normal9.0-12.7Fmiravista [facility] health center HospitalComment on above:Order Comment: Specimen Type: BLOOD SPECIMENOrdering Facility: [facility] Address:[address] [place], [place] [address]Performed By: #### 24641-3 ####RADHA LABORATORYCLIA [id number] [place] [address] [facility] Platelets (Bld) [#/Vol]233 10*3/iPRjdejy482-581Uuzqbdcn HospitalComment on above:Order Comment: Specimen Type: BLOOD SPECIMENOrdering Facility: [facility] Address:[address] [place], [place] [address]Performed By: #### 47379-9 ####RADHA LABORATORYCLIA [id number] [place] [address] [facility]UR[facility] HOMERBC (Bld) [#/Vol]3.83 10*6/uLLow4.20-6.00[facility] HospitalComment on above:Order Comment: Specimen Type: BLOOD SPECIMENOrdering Facility: [facility] Address:[address] [place], [place] [address]Performed By: #### 48830-3 ####RADHA LABORATORYCLIA [id number] [place] [address] [facility] HOMEWBC (Bld) [#/Vol]6.94 10*3/uLNormal3.70-11.00[facility] HospitalComment on above:Order Comment: Specimen Type: BLOOD SPECIMENOrdering Facility: [facility] Address:[address] [place], [place] [phone] By: #### 72110-7 ####RADHA LABORATORYCLIA [id number] [place] [address] [place] AMERICACONSULTon 75-70-5129VXGIXLDRyvnsqMfdwejgl HospitalCONSULTNormalTryon HospitalCONSULT PROGon 79-97-9840WFJOFEF PROGNormalVal[facility] Springs [facility] Comprehensive metabolic 2000 panelon 91-01-7514Gaihynq [Mass/Vol]2.7 g/dLLow 3.9-4.9[facility] HospitalComment on above:Order Comment: Specimen Type: BLOOD SPECIMENOrdering Facility: [facility] Address:[address] [place], [place] [address]Performed By: #### 54392-6, 08325-5, 2776-08 ####RADHA LABORATORYCLIA [id number] [place] [address] [place] AMERICAALP [Catalytic activity/Vol]57 U/FHofktp68-032Xhkudtwy HospitalComment on above:Order Comment: Specimen Type: BLOOD SPECIMENOrdering Facility: [facility] Address:[address] [place] [address] Performed By: #### 01653-2, 83810-8, 2776-08 ####RADHA LABORATORYCLIA [id number] [place] [address] [place] AMERICAALT [Catalytic activity/Vol]NormalTryon HospitalComment on above:Order Comment: Specimen Type: BLOOD SPECIMENOrdering Facility: [facility] Address:[address] [place], [place] [address]Result Comment: Unable to assay due to interference from hemolysis. Suggest reorder as clinically indicated. Performed By: #### 72827-2, 30709-0, 2776- ####RADHA LABORATORYCLIA [id number] [place] [address] [place] AMERICAAnion gap [Moles/Vol]12 mmol/LNormal8-15FaGood Samaritan Medical CenterComment on above:Order Comment: Specimen Type: BLOOD SPECIMENOrdering Facility: [facility] Address:[address] [place], [place] [address]Performed By: #### 56272- 8, 62062-6, 2776-08 ####RADHA LABORATORYCLIA [id number] [place] [address] [place] AMERICAAST [Catalytic activity/Vol]Normal [facility] HospitalComment on above:Order Comment: Specimen Type: BLOOD SPECIMENOrdering Facility: [facility] Address:[address] [place], [place] [address]Result Comment: Unable to assay due to interference from hemolysis. Suggest reorder as clinically indicated.Performed By: #### 67573-2, , 2776-08 ####RADHA LABORATORYCLIA [id number] [place] [id number] [place] AMERICABilirubin [Mass/Vol]0.5 mg/dLNormal 0.2-1.3F[facility] HospitalComment on above:Order Comment: Specimen Type: BLOOD SPECIMENOrdering Facility: [facility] Address:[address] [place], [place] [address]Performed By: #### 94801-8, , 2776-08 ####RADHA LABORATORYCLIA [id number] [place] [address] [place] AMERICACalcium [Mass/Vol]8.2 mg/dLLow8.5-10.2Fmir[facility] HospitalComment on above: Order Comment: Specimen Type: BLOOD SPECIMENOrdering Facility: [facility] Address:[address] [place], [place] [address]Performed By: #### 92752- 8, , 2776-08 ####RADHA LABORATORYCLIA [id number] [place] [address] [place] AMERICAChloride [Moles/Vol]107 mmol/L Rkerbc87-229Wbvgnanj HospitalComment on above:Order Comment: Specimen Type: BLOOD SPECIMENOrdering Facility: [facility] Address:[address] [place], [place] [address]Performed By: #### 27567-8, , 2776-08 ####RADHA LABORATORYCLIA [id number] [place] [address] [place] AMERICACO2 [Moles/Vol]20 mmol/BBum23-24Otzrrpej HospitalComment on above:Order Comment: Specimen Type: BLOOD SPECIMENOrdering Facility: [facility] Address:[address] [place] [address] Performed By: #### 83113-7, , 2776-08 ####RADHA LABORATORYCLIA [id number] [place] [address] [place] Creatinine [Mass/Vol]0.77 mg/dLNormal0.73-1.22[facility] HospitalCommymichigan medical center sault on above: Order Comment: Specimen Type: BLOOD SPECIMENOrdering Facility: [facility] Address:[address] [place], [place] [address]Performed By: #### 92891- 8, 71436-7, 2776-08 ####RADHA LABORATORYCLIA [id number] [place] [address] [place] AMERICACreatinine and Glomerular filtration rate.predicted panel (S/P/Bld)113 mL/min/1.73m???Normal>=60[facility] on above:Order Comment: Specimen Type: BLOOD SPECIMENOrdering Facility: [facility] Address:[address] [place], [place] [address]Result Comment: Estimated Glomerular Filtration Rate (eGFR) is [...] accurately reflect actual GFR. Performed By: #### 38901-7, , 2776-08 ####RADHA LABORATORYCLIA [id number] [place] [address] [place] AMERICAGlucose [Mass/Vol]91 mg/vMIrwdyu44-22Ptvbgubl HospitalCommymichigan medical center sault on above:Order Comment: Specimen Type: BLOOD SPECIMENOrdering Facility: [facility] Address:[address] [place] [address]Hvwmit Comment: The [place] Diabetes Association (ADA) provides guidance for cutoff values for fasting glucose and random glucose. The ADA defines fasting as no caloric intake for at least 8 hours. Fasting plasma glucose results between 100 to 125 mg/dL indicate increased risk for diabetes (prediabetes).Fasting plasma glucose results greater than or equal to 126 mg/dL meet the criteria for diagnosis of diabetes. In the absence of unequivocal hyperglycemia, results should be confirmed by repeat testing. In a patient with classic symptoms of hyperglycemia or hyperglycemic crisis, random plasmaglucose results greater than or equal to 200 mg/dL meet the criteria for diagnosis of diabetes.Reference: Standards of Medical Care in Diabetes 2016, [place] [employer] Association. Diabetes Care. 2016.39(Suppl 1). Performed By: #### 79498-9, , 2776-08 ####RADHA LABORATORYCLIA [id number] [place] [address] [place] Potassium [Moles/Vol]NormalFacutler army community hospital HospitalComment on above:Order Comment: Specimen Type: BLOOD SPECIMENOrdering Facility: [facility] Address:[address] [place], [place] [address]Result Comment: Unable to assay due to interference from hemolysis. Suggest reorder as clinically indicated. Performed By: #### 19307-4, , 2776-08 ####RADHA LABORATORYCLIA [id number] [place] [address] [place] AMERICAProtein [Mass/Vol]5.4 g/dLLow6.3-8.0[facility] HospitalComment on above:Order Comment: Specimen Type: BLOOD SPECIMENOrdering Facility: [facility] Address:[address] [place], [place] [address]Performed By: #### 06107-1, , 2776-08 ####ARDHA LABORATORYCLIA [id number] [place] [address] [place] AMERICASodium [Moles/Vol]139 mmol/SSvgvzu503-604Sbndyjvr HospitalComment on above:Order Comment: Specimen Type: BLOOD SPECIMENOrdering Facility: [facility] Address:[address] [place], [place] [address]Performed By: #### 00345-5, , 2776-08 ####RADHA LABORATORYCLIA [id number] [place] [address] [place] AMERICAUrea nitrogen [Mass/Vol]14 mg/dLNormal9-24[facility] HospitalComment on above:Order Comment: Specimen Type: BLOOD SPECIMENOrdering Facility: [facility] Address:[address] [place], [place] [address]Performed By: #### 25989- 8, , 2776-08 ####RADHA LABORATORYCLIA [id number] [place] [id number] [place] AMERICAMagnesium SerPl-mCncon 07-11-2024 Magnesium [Mass/Vol]1.9 mg/dLNormal1.7-2.3Fmiravista [facility] health center HospitalComment on above: Order Comment: Specimen Type: BLOOD SPECIMENOrdering Facility: [facility] Address:[address] [place], [place] [address], [place] [address]Performed By: #### 40174- 8, , 2776-08 ####RADHA LABORATORYCLIA [id number] [address]URSING PROGon 78-15-5996QSYSZCW PROGNormalFacutler army community hospital HospitalNUTRITIONon 49-37-9092VYGGTZLSDZoofvlOzlswsyb HospitalPOTASSIUMon 40-37-9143Oocmfhfrt [Moles/Vol]3.4 mmol/LLow3.7-5.1Fmiravista behavioral health center HospitalComment on above:Order Comment: Specimen Type: BLOOD SPECIMENOrdering Facility: [facility] Address:[facility] DUTCHOlga [place], [place] [address]Performed By: #### K1 ####RADHA LABORATORYCLIA [id number] [place] [address] [place] AMERICAPT EDon 71-87-9756XA EDNormal [facility]on HospitalPhosphate SerPl-mCncon 39-67-7371Wcfwoxcqk [Mass/Vol]3.0 mg/dL Normal2.7-4.8[facility] HospitalComment on above:Order Comment: Specimen Type: BLOOD SPECIMENOrdering Facility: [facility] Address:[facility] [address]CHOl[address] [place] [id number] By: #### 18775-7, , 2776-08 ####RADHA LABORATORYCLIA [id number] [place] [address] [place] AMERICAANES POSTPROC EVALon 71-70-4879JYKX POSTPROC EVALNormal [facility]on HospitalCASE MGT INIT ASSESon 18-65-9117VKND MGT INIT ASSESNormal [facility] panel Auto (Bld)on 31-13-7000Ownsfodcskr distribution width (RBC) [Ratio]13.6 %Mzfrtj12.5-15.0[facility] HospitalComment on above:Order Comment: Specimen Type: BLOOD SPECIMENOrdering Facility: [facility] Address:[address] [place], [place] [address]Performed By: #### 32422- 2 ####RADHA LABORATORYCLIA [id number] [address] ST[address]ETHematocrit (Bld) [Volume fraction]33.8 %Low39.0-51.0 [facility] HospitalComment on above:Order Comment: Specimen Type: BLOOD SPECIMENOrdering Facility: [facility] Address:[address] [place], [place] [address]Performed By: #### 52127-8 ####RADHA LABORATORYCLIA [id number] [address] OF [facility] Hemoglobin (Bld) [Mass/Vol]10.8 g/dLLow13.0-17.0[facility] HospitalComment on above:Order Comment: Specimen Type: BLOOD SPECIMENOrdering Facility: [facility] Address:[address] [place], [place] [address]Performed By: #### 66653-9 ####RADHA LABORATORYCLIA [id number] [place] [address] [facility] HOMEMCH (RBC) [Entitic mass]29.4 hkHfhfzz39.0-34.0 [facility] HospitalComment on above:Order Comment: Specimen Type: BLOOD SPECIMENOrdering Facility: [facility] Address:[address] [place], [place] [address]Performed By: #### 24044-2 ####RADHA LABORATORYCLIA [id number] [place] [address] [facility] HOMEMCHC (RBC) [Mass/Vol]32.0 g/gIJluvuw40.5-36.0[facility] HospitalComment on above:Order Comment: Specimen Type: BLOOD SPECIMENOrdering Facility: [facility] Address:[address] [place], [place] [address]Performed By: #### 22275- 2 ####RADHA LABORATORYCLIA [id number] [place] [address] [facility] (RBC) [Entitic vol]92.1 jCRwjchp76.0-100.0[facility] HospitalComment on above:Order Comment: Specimen Type: BLOOD SPECIMENOrdering Facility: [facility] Address:[address] [place], [place] [address]Performed By: #### 18749-7 ####RADHA LABORATORYCLIA [id number] [place] [address] [facility] HOSPITALucleated RBC (Bld) [#/Vol]10*3/uLNormal<0.01[facility] HospitalComment on above:Order Comment: Specimen Type: BLOOD SPECIMENOrdering Facility: [facility] Address:[address] [place], [place] [address]Performed By: #### 87117-9 ####RADHA LABORATORYCLIA [id number] [place] [address] [facility] HOMEPlatelet mean volume (Bld) [Entitic vol]10.1 fLNormal 9.0-12.7Fmiravista behavioral health center HospitalComment on above:Order Comment: Specimen Type: BLOOD SPECIMENOrdering Facility: [facility] Address:[address] [place], [place] [address]Performed By: #### 42588-9 ####RADHA LABORATORYCLIA [id number] [place] [address] [facility] Platelets (Bld) [#/Vol]218 10*3/qRLycqig459-235Jkpcqgkv HospitalComment on above:Order Comment: Specimen Type: BLOOD SPECIMENOrdering Facility: [facility] Address:[address] [place], [place] [address]Performed By: #### 57584-5 ####RADHA LABORATORYCLIA [id number] [place] [address] [facility] AMERICARBC (Bld) [#/Vol]3.67 10*6/uLLow4.20-6.00[facility] HospitalComment on above:Order Comment: Specimen Type: BLOOD SPECIMENOrdering Facility: [facility] Address:[address] [place], [place] [address]Performed By: #### 23746-0 ####RADHA LABORATORYCLIA [id number] [place] [address] [place] AMERICAWBC (Bld) [#/Vol]7.20 10*3/uLNormal3.70-11.00[facility] HospitalComment on above:Order Comment: Specimen Type: BLOOD SPECIMENOrdering Facility: [facility] Address:[address] [place], [place] [address]Performed By: #### 89786-3 ####RADHA LABORATORYCLIA [id number] [place] [address] [place] AMERICACONSULTon 82-68-5054WNHSEVPSrjtgcMiqnbkrb HospitalCONSULT PROGon 23-79-7737WUEEIPL PROGNormalValley Springs Behavioral Health HospitalComprehensive metabolic 2000 panel on 60-76-7501Ckzdptr [Mass/Vol]3.0 g/dLLow3.9-4.9[facility] HospitalComment on above:Order Comment: Specimen Type: BLOOD SPECIMENOrdering Facility: [facility] Address:[address] [place], [place] [address]Performed By: #### 63916-1, , 2776-08 ####RADHA LABORATORYCLIA [id number] [place] [address] [place] AMERICAALP [Catalytic activity/Vol]63 U/BMlxkhb60-098Vbczrppm HospitalComment on above:Order Comment: Specimen Type: BLOOD SPECIMENOrdering Facility: [facility] Address:[address] [place], [place] [address]Performed By: #### 68001-0, , 2777- ####RADHA LABORATORYCLIA [id number] [place] [address] [place] AMERICAALT [Catalytic activity/Vol]27 U/HJiueqy21-16Mxudknjf HospitalComment on above:Order Comment: Specimen Type: BLOOD SPECIMENOrdering Facility: [facility] Address:[address] [place], [place] [address]Performed By: #### 78146-0, , 2776-08 ####RADHA LABORATORYCLIA [id number] [place] [address] [place] AMERICAAnion gap [Moles/Vol]11 mmol/L Normal8-15[facility] HospitalComment on above:Order Comment: Specimen Type: BLOOD SPECIMENOrdering Facility: [facility] Address:[address] [place], [place] [address]Performed By: #### 66794-3, , 2776-08 ####RADHA LABORATORYCLIA [id number] [place] [address] [place] AMERICAAST [Catalytic activity/Vol]21 U/BRqadrb83-24Gawvefal HospitalComment on above:Order Comment: Specimen Type: BLOOD SPECIMENOrdering Facility: [facility] Address:[address] [place], [place] [address]Performed By: #### 82851-9, , 2776-08 ####RADHA LABORATORYCLIA [id number] [place] [id number] [place] AMERICABilirubin [Mass/Vol]0.5 mg/dL Normal0.2-1.3Fmiravista behavioral health center HospitalComment on above:Order Comment: Specimen Type: BLOOD SPECIMENOrdering Facility: [facility] Address:[address] [place], [place] [id number] By: #### 87593-8, , 2776-08 ####RADHA LABORATORYCLIA [id number] [place] [id number] [place] OF AMERICACalcium [Mass/Vol]8.6 mg/dLNormal8.5-10.2Fmiravista behavioral health center HospitalComment on above:Order Comment: Specimen Type: BLOOD SPECIMENOrdering Facility: [facility] Address:[address] [place], [place] [address]Performed By: #### 35143-6, 15496-2, 2776-08 ####[facility] LABORATORYCLIA [id number] [place] [address] [place] Chloride [Moles/Vol]109 mmol/NZltv69-873Xmpxvezd HospitalComment on above:Order Comment: Specimen Type: BLOOD SPECIMENOrdering Facility: [facility] Address:[address] [place], [place] [address]Performed By: #### 02540- 8, , 2776-08 ####[facility] LABORATORYCLIA [id number] [place] [id number] [place] AMERICACO2 [Moles/Vol]24 mmol/ZDixylq57-09 [facility] HospitalComment on above:Order Comment: Specimen Type: BLOOD SPECIMENOrdering Facility: [facility] Address:[address] [place], [place] [address]Performed By: #### 07791-7, , 2776-08 ####[facility] LABORATORYCLIA [id number] [place] [address] [place] AMERICACreatinine [Mass/Vol]0.90 mg/dLNormal0.73-1.22[facility] HospitalComment on above:Order Comment: Specimen Type: BLOOD SPECIMENOrdering Facility: [facility] Address:[address] [place] [address] Performed By: #### 06034-0, , 2776-08 ####[facility] LABORATORYCLIA [id number] [place] [id number] [place] Creatinine and Glomerular filtration rate.predicted panel (S/P/Bld)107 mL/min/1.73m???Normal>=60FaGood Samaritan Medical CenterCommymichigan medical center sault on above:Order Comment: Specimen Type: BLOOD SPECIMENOrdering Facility: [facility] Address:[address] [place], [place] [id number] Comment: Estimated Glomerular Filtration Rate (eGFR) is calculated using the 2020 CKD-EPI creatinine equation. This equation utilizes serum creatinine, sex, and age as parameters. The creatinine assay has traceable calibration to isotope dilution-mass spectrometry. Refer to KDIGO guidelines for clinical interpretation. In patients with unstable renal function, e.g. those with acute kidney injury, the eGFR may not accurately reflect actual GFR.Performed By: #### 32987-1, , 2776-08 ####[facility] LABORATORYCLIA [id number] [place] [address] [place] AMERICAGlucose [Mass/Vol]81 mg/vCVbxjfa83-59[facility] Comment on above:Order Comment: Specimen Type: BLOOD SPECIMENOrdering Facility: [facility] Address:[address] [id number] Comment: The [place] Diabetes Association (ADA) provides guidance for cutoff values for fasting glucose and random glucose. The ADA defines fasting as no caloric intake for at least 8 hours. Fasting plasma glucose results between 100 to 125 mg/dL indicate increased risk for diabetes (prediabetes).Fasting plasma glucose results greater than or equal to 126 mg/dL meet the criteria for diagno sis of diabetes. In the absence of unequivocal hyperglycemia, results should be confirmed by repeattesting. In a patient with classic symptoms of hyperglycemia or hyperglycemic crisis, random plasmaglucose results greater than or equal to 200 mg/dL meet the criteria for diagnosis of diabetes.Reference: Standards of Medical Care in Diabetes 2016, [place] Diabetes Association. Diabetes Care. 2016.39(Suppl 1).Performed By: #### 10232-2, , 2776-08 ####[facility] LABORATORYCLIA [id number] [place] [id number] [place] AMERICAPotassium [Moles/Vol]3.6 mmol/LLow3.7-5.1FWorcester Recovery Center and HospitalComment on above:Order Comment: Specimen Type: BLOOD SPECIMENOrdering Facility: [facility] Address:[address], [place] [address]Exfqjldly By: #### 54870-9, , 2776-08 ####[facility] LABORATORYCLIA [id number] [place] [address] [place] AMERICAProtein [Mass/Vol]5.7 g/dLLow 6.3-8.0[facility] HospitalComment on above:Order Comment: Specimen Type: BLOOD SPECIMENOrdering Facility: [facility] Address:[address] [place], [place] [address]Performed By: #### 77363-3, , 2776-08 ####[facility] LABORATORYCLIA [id number] [place] [address] [place] AMERICASodium [Moles/Vol]144 mmol/YSqybxc733-324Cayqqzod HospitalComment on above:Order Comment: Specimen Type: BLOOD SPECIMENOrdering Facility: [facility] Address:[address] [place], [place] [address]Performed By: #### 35765-7, , 2776-08 ####[facility] LABORATORYCLIA [id number] [place] [address] [place] AMERICAUrea nitrogen [Mass/Vol]20 mg/dLNormal9-24FaGood Samaritan Medical CenterComment on above:Order Comment: Specimen Type: BLOOD SPECIMENOrdering Facility: [facility] Address:[address] [place], [place] [address]Performed By: #### 07495-5, , 2776-08 ####[facility] LABORATORYCLIA [id number] [place] [address] [place] AMERICAMagnesium SerPl-mCncon 02-68-9858Pexyykdpu [Mass/Vol]2.0 mg/dLNormal1.7-2.3[facility] HospitalComment on above:Order Comment: Specimen Type: BLOOD SPECIMENOrdering Facility: [facility] Address:[address] [place], [place] [address]Performed By: #### 25359-7, 15191-1, 2776-08 ####[facility] LABORATORYCLIA [id number] [place] [address] [place] AMERICAPhosphate SerPl-mCncon 99-64-1837Uayxezelk [Mass/Vol]3.6 mg/dLNormal2.7-4.8[facility] HospitalComment on above:Order Comment: Specimen Type: BLOOD SPECIMENOrdering Facility: [facility] Address:[address] [place], [place] [address]Performed By: #### 31919-0, 48293-3, 2777-1 ####[facility] LABORATORYCLIA [id number] [place] [id number] [place] OF AMERICATHERAPY NTon 53-69-9334PNEFQLD NTNormalTryon Hospital THERAPY NTNormalTryon HospitalCBC W Auto Differential panel (Bld)on 20-37-5151Krruobhui (Bld) [#/Vol]10*3/uLNormal<0.11Tryon HospitalComment on above:Order Comment: Specimen Type: BLOOD SPECIMENOrdering Facility: [facility] Address:[address] [place], [place] [address]Performed By: #### 39221-8 ####[facility] LABORATORYCLIA [id number] [place] [address] [place] AMERICABasophils/100 WBC (Bld)0.1 %NormalTryon HospitalComment on above:Order Comment: Specimen Type: BLOOD SPECIMENOrdering Facility: [facility] Address:[address] [place], [place] [address]Performed By: #### 31089-2 ####[facility] LABORATORYCLIA [id number] [place] [address] [place] AMERICADifferential cell count method Nom (Bld)AutoNormalTryon HospitalComment on above:Order Comment: Specimen Type: BLOOD SPECIMENOrdering Facility: [facility] Address:[address] [place], [place] [address]Performed By: #### 77203-7 ####[facility] LABORATORYCLIA [id number] [place] [address] [place] AMERICAEosinophils (Bld) [#/Vol]10*3/uLNormal<0.46Tryon HospitalComment on above:Order Comment: Specimen Type: BLOOD SPECIMENOrdering Facility: [facility] Address:[address] [place], [place] [address]Performed By: #### 12844-0 ####[facility] LABORATORYCLIA [id number] [place] [address] [place] AMERICAEosinophils/100 WBC (Bld)0.0 %NormalTryon HospitalComment on above:Order Comment: Specimen Type: BLOOD SPECIMENOrdering Facility: [facility] Address:[address] [place], [place] [address]Performed By: #### 49970-2 ####[facility] LABORATORYCLIA [id number] [place] [address] [place] Erythrocyte distribution width (RBC) [Ratio]13.8 %Stovbe08.5-15.0[facility] HospitalComment on above:Order Comment: Specimen Type: BLOOD SPECIMENOrdering Facility: [facility] Address:[address] [place], [place] [address]Performed By: #### 07619-0 ####[facility] LABORATORYCLIA [id number] [place] [address] [place] AMERICAHematocrit (Bld) [Volume fraction]28.4 %Low39.0-51.0[facility] HospitalComment on above:Order Comment: Specimen Type: BLOOD SPECIMENOrdering Facility: [facility] Address:[address] [place], [place] [address]Performed By: #### 21360- 8 ####[facility] LABORATORYCLIA [id number] [place] [address] [place] AMERICAHemoglobin (Bld) [Mass/Vol]9.4 g/dLLow13.0-17.0Tryon HospitalComment on above:Order Comment: Specimen Type: BLOOD SPECIMENOrdering Facility: [facility] Address:[address] [place], [place] [address]Performed By: #### 57225-0 ####[facility] LABORATORYCLIA [id number] [place] [address] [place] AMERICAImmature granulocytes (Bld) [#/Vol]0.09 10*3/uLNormal<0.10Tryon HospitalComment on above:Order Comment: Specimen Type: BLOOD SPECIMENOrdering Facility: [facility] Address:[address] [place], [place] [address]Performed By: #### 07045- 8 ####[facility] LABORATORYCLIA [id number] [place] [address] [place] AMERICAImmature granulocytes/100 WBC (Bld)0.7 %NormalTryon HospitalComment on above:Order Comment: Specimen Type: BLOOD SPECIMENOrdering Facility: [facility] Address:[address] [place], [place] [address]Performed By: #### 21300-4 ####[facility] LABORATORYCLIA [id number] [place] [address] [place] AMERICALymphocytes (Bld) [#/Vol]0.25 10*3/uLLow1.00-4.00Tryon HospitalComment on above:Order Comment: Specimen Type: BLOOD SPECIMENOrdering Facility: [facility] Address:[address] [place], [place] [address]Performed By: #### 85471-4 ####[facility] LABORATORYCLIA [id number] [place] [address] [place] AMERICALymphocytes/100 WBC (Bld)2.0 %NormalValley Springs Behavioral Health [facility] Comment on above:Order Comment: Specimen Type: BLOOD SPECIMENOrdering Facility: [facility] Address:[address] [place] [address] Performed By: #### 34334-8 ####RAD[facility] LABORATORYCLIA [id number] [place] [address] [facility] (RBC) [Entitic mass]29.0 dwJrrapo20.0-34.0Tryon HospitalComment on above:Order Comment: Specimen Type: BLOOD SPECIMENOrdering Facility: [facility] Address:[address] [place], [place] [address]Performed By: #### 65163-8 ####RAD[facility] LABORATORYCLIA [id number] [place] [address] [facility] (RBC) [Mass/Vol]33.1 g/jGYmcnhv86.5-36.0Tryon HospitalComment on above:Order Comment: Specimen Type: BLOOD SPECIMENOrdering Facility: [facility] Address:[address] [place], [place] [address]Performed By: #### 47773- 8 ####[facility] LABORATORYCLIA [id number] [place] [address] [place] AMERICAMCV (RBC) [Entitic vol]87.7 gHTfgdmi92.0-100.0Tryon HospitalComment on above:Order Comment: Specimen Type: BLOOD SPECIMENOrdering Facility: [facility] Address:[address] [place], [place] [address]Performed By: #### 68035-3 ####[facility] LABORATORYCLIA [id number] [place] [address] [place] AMERICAMonocytes (Bld) [#/Vol] 0.40 10*3/uLNormal<0.87Tryon HospitalComment on above:Order Comment: Specimen Type: BLOOD SPECIMENOrdering Facility: [facility] Address:[address] [place], [place] [address]Performed By: #### 95795-1 ####RAD[facility] LABORATORYCLIA [id number] [place] [address] [place] AMERICAMonocytes/100 WBC (Bld)3.3 %NormalFacutler army community hospital HospitalComment on above: Order Comment: Specimen Type: BLOOD SPECIMENOrdering Facility: [facility] Address:[address] [place], [place] [address]Performed By: #### 20001- 8 ####[facility] LABORATORYCLIA [id number] [place] [address] [place] AMERICANeutrophils (Bld) [#/Vol]11.45 10*3/uLHigh1.45-7.50 Tryon HospitalComment on above:Order Comment: Specimen Type: BLOOD SPECIMENOrdering Facility: [facility] Address:[address] [place], [place] [address]Performed By: #### 68019-0 ####RAD[facility] LABORATORYCLIA [id number] [place] [address] [place] Neutrophils/100 WBC (Bld)93.9 %NormalTryon HospitalComment on above:Order Comment: Specimen Type: BLOOD SPECIMENOrdering Facility: [facility] Address:[address] [place], [place] [address]Performed By: #### 65226- 8 ####RAD[facility] LABORATORYCLIA [id number] [place] [address] [place] AMERICANucleated RBC (Bld) [#/Vol]10*3/uLNormal<0.01[facility] HospitalComment on above:Order Comment: Specimen Type: BLOOD SPECIMENOrdering Facility: [facility] Address:[address] [place], [place] [address]Performed By: #### 19508-3 ####[facility] LABORATORYCLIA [id number] [place] [address] [place] AMERICANucleated RBC/100 WBC (Bld) [Ratio]0.0 /100 WBCNormalTryon HospitalComment on above:Order Comment: Specimen Type: BLOOD SPECIMENOrdering Facility: [facility] Address:[address] [place], [place] [address]Performed By: #### 00681-8 ####[facility] LABORATORYCLIA [id number] [place] [address] [place] AMERICAPlatelet mean volume (Bld) [Entitic vol]9.9 fLNormal 9.0-12.7Fmiravista behavioral health center HospitalComment on above:Order Comment: Specimen Type: BLOOD SPECIMENOrdering Facility: [facility] Address:[address] [place], [place] [address]Performed By: #### 41950-9 ####[facility] LABORATORYCLIA [id number] [place] [address] [place] Platelets (Bld) [#/Vol]217 10*3/xWGijbfr226-192Xfrwhvjd HospitalComment on above:Order Comment: Specimen Type: BLOOD SPECIMENOrdering Facility: [facility] Address:[address] [place], [place] [address]Performed By: #### 16810-0 ####RAD[facility] LABORATORYCLIA [id number] [place] [address] [place] AMERICARBC (Bld) [#/Vol]3.24 10*6/uLLow4.20-6.00[facility] HospitalComment on above:Order Comment: Specimen Type: BLOOD SPECIMENOrdering Facility: [facility] Address:[address] [place], [place] [address]Performed By: #### 02926-9 ####RADHA LABORATORYCLIA [id number] [place] [address] [facility] MEDICAL CENTERWBC (Bld) [#/Vol]12.20 10*3/uLHigh3.70-11.00[facility] HospitalComment on above:Order Comment: Specimen Type: BLOOD SPECIMENOrdering Facility: [facility] Address:[address] [place], [place] [address]Performed By: #### 09377-5 ####RAD[facility] LABORATORYCLIA [id number] [place] [address] [facility] OF AMERICACONSULT PROGon 51-47-8763LYQWWUH PROGNormalValley Springs Behavioral Health Hospital Comprehensive metabolic 2000 panelon 68-11-5577Uhpxvqe [Mass/Vol]3.0 g/dLLow 3.9-4.9[facility] HospitalComment on above:Order Comment: Specimen Type: BLOOD SPECIMENOrdering Facility: [facility] Address:[address] [place], [place] [address]Performed By: #### 2777-1, 99084-8, ####RADHA LABORATORYCLIA [id number] [place] [address] [place] AMERICAALP [Catalytic activity/Vol]68 U/GByxhzt41-474Dzxbcqkz HospitalComment on above:Order Comment: Specimen Type: BLOOD SPECIMENOrdering Facility: [facility] Address:[address] [place] [address] Performed By: #### 2777-1, 16042-9, ####RAD[facility] LABORATORYCLIA [id number] [place] [address] [place] AMERICAALT [Catalytic activity/Vol]33 U/VCapdpf62-01K[facility] HospitalComment on above:Order Comment: Specimen Type: BLOOD SPECIMENOrdering Facility: [facility] Address:[address] [place], [place] [address]Performed By: #### 2777- 1, 41041-7, ####RADHA LABORATORYCLIA [id number] [place] [address] [place] AMERICAAnion gap [Moles/Vol]8 mmol/LNormal 8-15[facility] HospitalComment on above:Order Comment: Specimen Type: BLOOD SPECIMENOrdering Facility: [facility] Address:[address] [place], [place] [address]Performed By: #### 2777-1, , ####RADHA LABORATORYCLIA [id number] [place] [address] [place] AMERICAAST [Catalytic activity/Vol]27 U/YMxejzu00-03Noskfpbt HospitalComment on above:Order Comment: Specimen Type: BLOOD SPECIMENOrdering Facility: [facility] Address:[address] [place], [place] [address]Performed By: #### 2777-1, , ####RADHA LABORATORYCLIA [id number] [place] [address] [place] AMERICABilirubin [Mass/Vol]0.6 mg/dL Normal0.2-1.3Fmiravista behavioral health center HospitalComment on above:Order Comment: Specimen Type: BLOOD SPECIMENOrdering Facility: [facility] Address:[address] [place], [place] [address]Performed By: #### 2777-1, , ####RAD[facility] LABORATORYCLIA [id number] [place] [address] [place] AMERICACalcium [Mass/Vol]8.4 mg/dLLow8.5-10.2Fmiravista behavioral health center Hospital Comment on above:Order Comment: Specimen Type: BLOOD SPECIMENOrdering Facility: [facility] Address:[address] [place] [address] Performed By: #### 2777-1, 63757-4, ####[facility] LABORATORYCLIA [id number] [place] [address] [place] Chloride [Moles/Vol]109 mmol/XXovz07-531JnvyufacHigh Point Hospitalment on above:Order Comment: Specimen Type: BLOOD SPECIMENOrdering Facility: [facility] Address:[address] [place], [place] [address]Performed By: #### 2777- 1, 43691-4, ####[facility] LABORATORYCLIA [id number] [place] [id number] [place] AMERICACO2 [Moles/Vol]25 mmol/COyrmbo22-28 [facility] HospitalComment on above:Order Comment: Specimen Type: BLOOD SPECIMENOrdering Facility: [facility] Address:[address] [place], [place] [address]Performed By: #### 2777-1, 67108-8, ####[facility] LABORATORYCLIA [id number] [place] [address] [place] AMERICACreatinine [Mass/Vol]0.80 mg/dLNormal0.73-1.22[facility] HospitalComment on above:Order Comment: Specimen Type: BLOOD SPECIMENOrdering Facility: [facility] Address:[address] [place] [address] Performed By: #### 2777-1, 99809-5, ####[facility] LABORATORYCLIA [id number] [place] [address] [place] Creatinine and Glomerular filtration rate.predicted panel (S/P/Bld)111 mL/min/1.73m???Normal>=60FaGood Samaritan Medical CenterCommymichigan medical center sault on above:Order Comment: Specimen Type: BLOOD SPECIMENOrdering Facility: [facility] Address:[address] [place], [place] [address]Result Comment: Estimated Glomerular Filtration Rate (eGFR) is calculated using the 2020 CKD-EPI creatinine equation. This equation utilizes serum creatinine, sex, and age as parameters. The creatinine assay has traceable calibration to isotope dilution-mass spectrometry. Refer to KDIGO guidelines for clinical interpretation. In patients with unstable renal function, e.g. those with acute kidney injury, the eGFR may not accurately reflect actual GFR.Performed By: #### 2777-1, , ####RADHA LABORATORYCLIA [id number] [place] [address] [place] AMERICAGlucose [Mass/Vol]129 mg/oFPdgu61-04Xwbkazwx Hospital Comment on above:Order Comment: Specimen Type: BLOOD SPECIMENOrdering Facility: [facility] Address:[address] [id number] Comment: The [place] Diabetes Association (ADA) provides guidance for cutoff values for fasting glucose and random glucose. The ADA defines fasting as no caloric intake for at least 8 hours. Fasting plasma glucose results between 100 to 125 mg/dL indicate increased risk for diabetes (prediabetes).Fasting plasma glucose results greater than or equal to 126 mg/dL meet the criteria for diagno sis of diabetes. In the absence of unequivocal hyperglycemia, results should be confirmed by repeattesting. In a patient with classic symptoms of hyperglycemia or hyperglycemic crisis, random plasmaglucose results greater than or equal to 200 mg/dL meet the criteria for diagnosis of diabetes.Reference: Standards of Medical Care in Diabetes 2016, [place] [employer]. Diabetes Care. 2016.39(Suppl 1).Performed By: #### 2777-1, , ####RADHA LABORATORYCLIA [id number] [place] [address] [place] AMERICAPotassium [Moles/Vol]3.7 mmol/LNormal3.7-5.1FWorcester Recovery Center and HospitalComment on above:Order Comment: Specimen Type: BLOOD SPECIMENOrdering Facility: [facility] Address:[address] [place], [place] [address]Igruhjdtp By: #### 2777-1, , ####RADHA LABORATORYCLIA [id number] [place] [address] [place] AMERICAProtein [Mass/Vol]5.6 g/dLLow 6.3-8.0FaGood Samaritan Medical CenterComment on above:Order Comment: Specimen Type: BLOOD SPECIMENOrdering Facility: [facility] Address:[address] [place], [place] [address]Performed By: #### 2777-1, 36838-3, ####RADHA LABORATORYCLIA [id number] [place] [address] [place] AMERICASodium [Moles/Vol]142 mmol/NGuinxo592-878Lrtlykxc HospitalComment on above:Order Comment: Specimen Type: BLOOD SPECIMENOrdering Facility: [facility] Address:[address] [place], [place] [address]Performed By: #### 2777-1, 42705-5, ####RADHA LABORATORYCLIA [id number] [place] [address] [place] AMERICAUrea nitrogen [Mass/Vol]20 mg/dLNormal9-24[facility] HospitalComment on above:Order Comment: Specimen Type: BLOOD SPECIMENOrdering Facility: [facility] Address:[address] [place], [place] [address]Performed By: #### 2777-1, 67125-5, ####RADHA LABORATORYCLIA [id number] [place] [address] [place] AMERICAMagnesium SerPl-mCncon 06-60-2852Ribpruilx [Mass/Vol]2.0 mg/dLNormal1.7-2.3Fmiravista behavioral health center HospitalComment on above:Order Comment: Specimen Type: BLOOD SPECIMENOrdering Facility: [facility] Address:[address] [place], [place] [address]Performed By: #### 2777-1, 14430-4, ####RADHA LABORATORYCLIA [id number] [place] [address] [place] OF AMERICANURSING PROGon 65-70-0446TMMHRQG PROGNormalFacutler army community hospital HospitalPhosphate SerPl-mCncon 83-72-1119Swjwpoffp [Mass/Vol]3.1 mg/dLNormal 2.7-4.8[facility] HospitalComment on above:Order Comment: Specimen Type: BLOOD SPECIMENOrdering Facility: [facility] Address:[address] [place], [place] [address]Performed By: #### 2777-1, 68481-0, 25657-5 ####RADHA LABORATORYCLIA [id number] [place] [address] [place] AMERICABacteria Bld Culton 16-16-4450Zlhjpovo identified Cx Nom (Bld)CULTURE, BLOOD: No growth 5 days GRAM STAIN: This blood culture had less than the recommended 8 ml per bottle, which could decrease the sensitivity of the test.NormalTryon HospitalComment on above: Performed By: #### 600-7 ####[facility] LABCLIA [id number] [place] [address] [place] AMERICABacteria identified Cx Nom (Bld)CULTURE, BLOOD: No growth 5 daysNormalTryon HospitalComment on above:Performed By: #### 600-7 ####[facility] LABCLIA [id number] [place] [address] [place] AMERICACBC W Auto Differential panel (Bld)on 22-57-2989Yywwwfuwp (Bld) [#/Vol]0.04 10*3/uLNormal<0.11Tryon HospitalComment on above:Order Comment: Specimen Type: BLOOD SPECIMENOrdering Facility: [facility] Address:[address] [place], [place] [address]Performed By: #### 09119-3 ####RADHA LABORATORYCLIA [id number] [place] [address] [place] AMERICABasophils/100 WBC (Bld) 0.2 %[facility] HospitalComment on above:Order Comment: Specimen Type: BLOOD SPECIMENOrdering Facility: [facility] Address:[address] [place], [place] [address]Performed By: #### 97266-4 ####RADHA LABORATORYCLIA [id number] [place] [address] [place] Differential cell count method Nom (Bld)AutoNormalTryon HospitalComment on above:Order Comment: Specimen Type: BLOOD SPECIMENOrdering Facility: [facility] Address:[address] [place], [place] [address]Performed By: #### 07096-4 ####RADHA LABORATORYCLIA [id number] [place] [address] [place] AMERICAEosinophils (Bld) [#/Vol]10*3/uLNormal<0.46 [facility] HospitalCommymichigan medical center sault on above:Order Comment: Specimen Type: BLOOD SPECIMENOrdering Facility: [facility] Address:[address] [place], [place] [address]Performed By: #### 09383-6 ####RADHA LABORATORYCLIA [id number] [place] [address] [place] Eosinophils/100 WBC (Bld)0.0 %NormalValley Springs Behavioral Health HospitalComment on above:Order Comment: Specimen Type: BLOOD SPECIMENOrdering Facility: [facility] Address:[address] [place], [place] [address]Performed By: #### 84876- 8 ####RADHA LABORATORYCLIA [id number] [place] [address] [place] AMERICAErythrocyte distribution width (RBC) [Ratio]13.9 %Normal 11.5-15.0[facility] HospitalComment on above:Order Comment: Specimen Type: BLOOD SPECIMENOrdering Facility: [facility] Address:[address] [place], [place] [address]Performed By: #### 58375-9 ####RADHA LABORATORYCLIA [id number] [place] [address] [place] Hematocrit (Bld) [Volume fraction]27.9 %Low39.0-51.0Tryon HospitalComment on above:Order Comment: Specimen Type: BLOOD SPECIMENOrdering Facility: [facility] Address:[address] [place], [place] [address]Performed By: #### 29750-0 ####RADAH LABORATORYCLIA [id number] [place] [address] [place] AMERICAHemoglobin (Bld) [Mass/Vol]9.5 g/dLLow13.0-17.0 [facility]on HospitalComment on above:Order Comment: Specimen Type: BLOOD SPECIMENOrdering Facility: [facility] Address:[address] [place], [place] [address]Performed By: #### 12359-9 ####RADHA LABORATORYCLIA [id number] [place] [id number] [place] Immature granulocytes (Bld) [#/Vol]0.23 10*3/uLHigh<0.10Tryon HospitalComment on above:Order Comment: Specimen Type: BLOOD SPECIMENOrdering Facility: [facility] Address:[address] [place] [address] Performed By: #### 38729-3 ####RADHA LABORATORYCLIA [id number] [place] [address] [place] AMERICAImmature granulocytes/100 WBC (Bld)1.1 %NormalTryon HospitalComment on above:Order Comment: Specimen Type: BLOOD SPECIMENOrdering Facility: [facility] Address:[address] [place], [place] [address]Performed By: #### 88438-9 ####RADHA LABORATORYCLIA [id number] [place] [address] [place] Lymphocytes (Bld) [#/Vol]0.27 10*3/uLLow1.00-4.00Tryon HospitalComment on above:Order Comment: Specimen Type: BLOOD SPECIMENOrdering Facility: [facility] Address:[address] [place], [place] [address]Performed By: #### 64971-1 ####RADHA LABORATORYCLIA [id number] [place] [id number] [place] AMERICALymphocytes/100 WBC (Bld)1.3 %NormalTryon HospitalComment on above:Order Comment: Specimen Type: BLOOD SPECIMENOrdering Facility: [facility] Address:[address] [place], [place] [address]Performed By: #### 21335-6 ####RADHA LABORATORYCLIA [id number] [address] (RBC) [Entitic mass]29.8 sfYvncma61.0-34.0[facility] HospitalComment on above:Order Comment: Specimen Type: BLOOD SPECIMENOrdering Facility: [facility] Address:[address] [place], [place] [address]Performed By: #### 69280-2 ####RADHA LABORATORYCLIA [id number] [address] (RBC) [Mass/Vol]34.1 g/hTAgvkoe32.5-36.0[facility] HospitalComment on above:Order Comment: Specimen Type: BLOOD SPECIMENOrdering Facility: [facility] Address:[address] [place], [place] [address]Performed By: #### 29999-2 ####RADHA LABORATORYCLIA [id number] [address] (RBC) [Entitic vol] 87.5 hBCxtcwc33.0-100.0Tryon HospitalComment on above:Order Comment: Specimen Type: BLOOD SPECIMENOrdering Facility: [facility] Address:[address] [place], [place] [address]Performed By: #### 32289-6 ####RADHA LABORATORYCLIA [id number] [place] [address] [place] AMERICAMonocytes (Bld) [#/Vol]0.48 10*3/uLNormal<0.87Tryon HospitalComment on above:Order Comment: Specimen Type: BLOOD SPECIMENOrdering Facility: [facility] Address:[address] [place], [place] [address]Performed By: #### 04008-0 ####RADHA LABORATORYCLIA [id number] [address] OF AMERICAMonocytes/100 WBC (Bld)2.3 %NormalFacutler army community hospital HospitalComment on above:Order Comment: Specimen Type: BLOOD SPECIMENOrdering Facility: [facility] Address:[address] [place], [place] [address]Performed By: #### 01703-9 ####RADHA LABORATORYCLIA [id number] [place] [id number] [place] AMERICANeutrophils (Bld) [#/Vol]20.28 10*3/uLHigh1.45-7.50Tryon HospitalComment on above:Order Comment: Specimen Type: BLOOD SPECIMENOrdering Facility: [facility] Address:[address] [place], [place] [address]Performed By: #### 11435- 8 ####RADHA LABORATORYCLIA [id number] [place] [address] [place] AMERICANeutrophils/100 WBC (Bld)95.1 %NormalValley Springs Behavioral Health Hospital Comment on above:Order Comment: Specimen Type: BLOOD SPECIMENOrdering Facility: [facility] Address:[address] [place] [address] Performed By: #### 90680-8 ####RADHA LABORATORYCLIA [id number] [place] [id number] [place] AMERICANucleated RBC (Bld) [#/Vol] 10*3/uLNormal<0.01Tryon HospitalComment on above:Order Comment: Specimen Type: BLOOD SPECIMENOrdering Facility: [facility] Address:[address] [place], [place] [address]Performed By: #### 92857-3 ####RADHA LABORATORYCLIA [id number] [place] [address] [place] AMERICANucleated RBC/100 WBC (Bld) [Ratio]0.0 /100 WBCNormalValley Springs Behavioral Health Hospital Comment on above:Order Comment: Specimen Type: BLOOD SPECIMENOrdering Facility: [facility] Address:[address] [place] [address] Performed By: #### 10469-5 ####RADHA LABORATORYCLIA [id number] [place] [id number] [place] AMERICAPlatelet mean volume (Bld) [Entitic vol]9.6 fLNormal9.0-12.7Fmiravista behavioral health center HospitalComment on above:Order Comment: Specimen Type: BLOOD SPECIMENOrdering Facility: [facility] Address:[address] [place], [place] [address]Performed By: #### 84620- 8 ####RADHA LABORATORYCLIA [id number] [place] [id number] [facility] HOMEPlatelets (Bld) [#/Vol]241 10*3/yMPjwjcm962-978Gkfimvyp HospitalComment on above:Order Comment: Specimen Type: BLOOD SPECIMENOrdering Facility: [facility] Address:[address] [place], [place] [address]Performed By: #### 60544-3 ####RADHA LABORATORYCLIA [id number] [place] [address] [facility] HOMERB (d) [#/Vol]3.19 10*6/uLLow4.20-6.00[facility] HospitalComment on above:Order Comment: Specimen Type: BLOOD SPECIMENOrdering Facility: [facility] Address:[address] [place], [place] [address]Performed By: #### 14717-3 ####RADHA LABORATORYCLIA [id number] [place] [id number] [facility] HOMEW (d) [#/Vol]21.31 10*3/uLHigh3.70-11.00Tryon HospitalComment on above:Order Comment: Specimen Type: BLOOD SPECIMENOrdering Facility: [facility] Address:[address] [place], [place] [address]Performed By: #### 52897-4 ####RADHA LABORATORYCLIA [id number] [place] [address] [place] AMERICACONSULTon 17-78-8164FUFQESQWsqibeEytbdnqu Hospital CONSULT PROGon 30-17-3521ATHZXVM PROGNormalValley Springs Behavioral Health HospitalCONLT PROGNormal [facility] HospitalComprehensive metabolic 2000 panelon 17-82-3909Yhbblnf [Mass/Vol]3.1 g/dLLow3.9-4.9[facility] HospitalComment on above:Order Comment: Specimen Type: BLOOD SPECIMENOrdering Facility: [facility] Address:[address] [place], [place] [address]Performed By: #### 44895-7, 2776-08, 17552-5 ####RADHA LABORATORYCLIA [id number] [place] [address] [place] AMERICAALP [Catalytic activity/Vol]79 U/AKamxka97-667 [facility]on HospitalComment on above:Order Comment: Specimen Type: BLOOD SPECIMENOrdering Facility: [facility] Address:[address] [place], [place] [address]Performed By: #### 09978-0, 2776-08, 06110-2 ####RADHA LABORATORYCLIA [id number] [place] [address] [place] AMERICAALT [Catalytic activity/Vol]43 U/OHndqft54-40Zizjwvjb HospitalComment on above:Order Comment: Specimen Type: BLOOD SPECIMENOrdering Facility: [facility] Address:[address] [place], [place] [address]Performed By: #### 30468-9, 2776-08, 98506-8 ####RADHA LABORATORYCLIA [id number] [place] [address] [place] AMERICAAnion gap [Moles/Vol]11 mmol/L Normal8-15Tryon HospitalComment on above:Order Comment: Specimen Type: BLOOD SPECIMENOrdering Facility: [facility] Address:[address] [place], [place] [address]Performed By: #### 67451-1, 2776-08, 12964-6 ####RADHA LABORATORYCLIA [id number] [place] [address] [place] AMERICAAST [Catalytic activity/Vol]45 U/QWibq38-03Ghzozwbk HospitalComment on above:Order Comment: Specimen Type: BLOOD SPECIMENOrdering Facility: [facility] Address:[address] [place], [place] [address]Performed By: #### 21646-5, 2776-, 34312-6 ####RADHA LABORATORYCLIA [id number] [place] [address] [place] AMERICABilirubin [Mass/Vol]1.0 mg/dL Normal0.2-1.3Fmiravista behavioral health center HospitalComment on above:Order Comment: Specimen Type: BLOOD SPECIMENOrdering Facility: [facility] Address:[address] [place], [place] [address]Performed By: #### 99999-8, 2777-1, 26657-4 ####RADHA LABORATORYCLIA [id number] [place] [address] [place] AMERICACalcium [Mass/Vol]8.6 mg/dLNormal8.5-10.2Fmiravista behavioral health center HospitalComment on above:Order Comment: Specimen Type: BLOOD SPECIMENOrdering Facility: [facility] Address:[address] [place], [place] [address]Performed By: #### 19147-7, 2776-08, 23797-9 ####RADHA LABORATORYCLIA [id number] [place] [address] [place] Chloride [Moles/Vol]108 mmol/RUnst83-035Hjnhtder HospitalComment on above:Order Comment: Specimen Type: BLOOD SPECIMENOrdering Facility: [facility] Address:[address] [place], [place] [address]Performed By: #### 55365- 9, 2776-08, 51723-1 ####RADHA LABORATORYCLIA [id number] [place] [address] [place] AMERICACO2 [Moles/Vol]23 mmol/TXoawfb70-83 Tryon HospitalComment on above:Order Comment: Specimen Type: BLOOD SPECIMENOrdering Facility: [facility] Address:[address] [place], [place] [address]Performed By: #### 91635-9, 2776-, 50836-5 ####RADHA LABORATORYCLIA [id number] [place] [address] [place] AMERICACreatinine [Mass/Vol]0.84 mg/dLNormal0.73-1.22[facility] HospitalComment on above:Order Comment: Specimen Type: BLOOD SPECIMENOrdering Facility: [facility] Address:[address] [place] [address] Performed By: #### 91875-0, 2777-1, 56444-2 ####MARILEERAYMUNDO LABORATORYCLIA [id number] [place] [address] [place] Creatinine and Glomerular filtration rate.predicted panel (S/P/Bld)110 mL/min/1.73m???Normal>=60[facility] HospitalComment on above:Order Comment: Specimen Type: BLOOD SPECIMENOrdering Facility: [facility] Address:[address] [place], [place] [address]Result Comment: Estimated Glomerular Filtration Rate (eGFR) is calculated using the 2020 CKD-EPI creatinine equation. This equation utilizes serum creatinine, sex, and age as parameters. The creatinine assay has traceable calibration to isotope dilution-mass spectrometry. Refer to KDIGO guidelines for clinical interpretation. In patients with unstable renal function, e.g. those with acute kidney injury, the eGFR may not accurately reflect actual GFR.Performed By: #### 86450-0, 2777-1, 16590-4 ####RADHA LABORATORYCLIA [id number] [place] [address] [place] AMERICAGlucose [Mass/Vol]104 mg/vCOysn16-37Toljnxjq[address] Comment on above:Order Comment: Specimen Type: BLOOD SPECIMENOrdering Facility: [facility] Address:[address] [place], [place] [address]Result Comment: The [place] Diabetes Association (ADA) provides guidance for cutoff values for fasting glucose and random glucose. The ADA defines fasting as no caloric intake for at least 8 hours. Fasting plasma glucose results between 100 to 125 mg/dL indicate increased risk for diabetes (prediabetes).Fasting plasma glucose results greater than or equal to 126 mg/dL meet the criteria for diagno sis of diabetes. In the absence of unequivocal hyperglycemia, results should be confirmed by repeattesting. In a patient with classic symptoms of hyperglycemia or hyperglycemic crisis, random plasmaglucose results greater than or equal to 200 mg/dL meet the criteria for diagnosis of diabetes.Reference: Standards of Medical Care in Diabetes 2016, [place] Diabetes Association. Diabetes Care. 2016.39(Suppl 1).Performed By: #### 25398-1, 2776-, 89250-0 ####RADHA LABORATORYCLIA [id number] [place] [address] [place] AMERICAPotassium [Moles/Vol]4.3 mmol/LNormal3.7-5.1Fmiravista behavioral health center HospitalComment on above:Order Comment: Specimen Type: BLOOD SPECIMENOrdering Facility: [facility] Address:[address] [place], [place] [address]Performed By: #### 49844-6, 2776-08, ####RADHA LABORATORYCLIA [id number] [place] [address] [place] AMERICAProtein [Mass/Vol]5.7 g/dLLow 6.3-8.0[facility] HospitalComment on above:Order Comment: Specimen Type: BLOOD SPECIMENOrdering Facility: [facility] Address:[address] [place], [place] [address]Performed By: #### 86393-3, 2776-08, ####RADHA LABORATORYCLIA [id number] [place] [address] [place] AMERICASodium [Moles/Vol]142 mmol/VVwgyvk142-595Rdvibxqi HospitalComment on above:Order Comment: Specimen Type: BLOOD SPECIMENOrdering Facility: [facility] Address:[address] [place], [place] [address]Performed By: #### 49367-8, 2776-08, ####RADHA LABORATORYCLIA [id number] [place] [address] [place] AMERICAUrea nitrogen [Mass/Vol]15 mg/dLNormal9-24[facility] HospitalComment on above:Order Comment: Specimen Type: BLOOD SPECIMENOrdering Facility: [facility] Address:[address] [place], [place] [address]Performed By: #### 86745-7, 2776-08, 00883-4 ####RADHA LABORATORYCLIA [id number] [place] [id number] [place] AMERICAGRAM POSITIVE ORGANISM ID BY MICROARRAY (VERIGENE)on 06-58-4312FNJT POSITIVE ORGANISM ID BY MICROARRAY (VERIGENE) BCID INTERPRETATION: Streptococcus anginosus group detected by microarray. Negative for Staphylococcus spp. and Enterococcus spp. by microarray. AbnormalNOMS HealthcareInterpretation and review of laboratory resultsAbnormal NOMS HealthcareOriginal Ordering Provider: [facility] HealthcareMagnesium SerPl-mCncon 31-62-7524Frnmposna [Mass/Vol]2.0 mg/dLNormal 1.7-2.3Fmiravista behavioral health center HospitalComment on above:Order Comment: Specimen Type: BLOOD SPECIMENOrdering Facility: [facility] Address:[address] [place], [place] [address]Performed By: #### 40789-0, 2777-1, 58244-3 ####RADHA LABORATORYCLIA [id number] [address] OF [facility] JOY HOSPITALUTRITIONon 14-12-3565CJXUSLSTGIyaludXzzjjrnn HospitalPhosphate SerPl-mCncon 66-04-8108Ysurxjczi [Mass/Vol]3.6 mg/dLNormal2.7-4.8[facility] HospitalComment on above:Order Comment: Specimen Type: BLOOD SPECIMENOrdering Facility: [facility] Address:[address] [place], [place] [address]Performed By: #### 51404-1, 2777-1, 10408-5 ####RADHA LABORATORYCLIA [id number] [place] [address] [place] ARTERIAL BLOOD GASESon 46-59-7070Xydy deficit (BldA) [Moles/Vol]-1 mmol/LNormal -2-0[facility] HospitalComment on above:Order Comment: Specimen Type: ARTERIAL BLOOD SPECIMENOrdering Facility: [facility]Address: [address] [place], [place] [address]Performed By: #### ALLBG ####RADHA LABORATORYCLIA [id number] [place] [address] [place] AMERICABody oyyidyfftxn20.6 [degF]NormalFacutler army community hospital HospitalComment on above:Order Comment: Specimen Type: ARTERIAL BLOOD SPECIMENOrdering Facility: [facility]Address: [address] [id number] By: #### ALLBG ####RADHA LABORATORYCLIA [id number] [place] [address] [place] AMERICACalcium.ionized (Bld) [Mass/Vol]1.15 mmol/LNormal 1.08-1.30[facility] HospitalComment on above:Order Comment: Specimen Type: ARTERIAL BLOOD SPECIMENOrdering Facility: [facility]Address: [address] [place], [place] [address]Performed By: #### ALLBG ####RADHA LABORATORYCLIA [id number] [place] [address] [place]ICACalcium.ionized adjusted to pH 7.4 (BldA) [Moles/Vol]1.17 mmol/LNormal 1.08-1.30[facility] HospitalComment on above:Order Comment: Specimen Type: ARTERIAL BLOOD SPECIMENOrdering Facility: [facility]Address: [address] [place] [id number] By: #### ALLBG ####RADHA LABORATORYCLIA [id number] [place] [address] [place] AMERICACarboxyhemoglobin (BldA) [Mass fraction]0.1 %Normal0.0-2.0[facility] HospitalComment on above:Order Comment: Specimen Type: ARTERIAL BLOOD SPECIMENOrdering Facility: [facility]Address: [address] [place] [id number] Comment: Carboxyhemoglobin Reference Range for Smokers: 2.0-8.0%Performed By: #### ALLBG ####RADHA LABORATORYCLIA [id number] [place] [address] [place] Chloride [Moles/Vol]107 mmol/HGgvb75-119Kvueexvw HospitalComment on above:Order Comment: Specimen Type: ARTERIAL BLOOD SPECIMENOrdering Facility: [facility]Address: [address] [place] [id number] By: #### ALLBG ####RADHA LABORATORYCLIA [id number] [place] [address] [place] AMERICACO2 (Bld) [Partial pressure]33 mm OeWoh93-27 [facility] HospitalComment on above:Order Comment: Specimen Type: ARTERIAL BLOOD SPECIMENOrdering Facility: [facility]Address: [address] [place] [id number] By: #### ALLBG ####RADHA LABORATORYCLIA [id number] [place] [address] [place] OF QUCWZVXLVD114 %NormalTryon HospitalComment on above:Order Comment: Specimen Type: ARTERIAL BLOOD SPECIMENOrdering Facility: [facility]Address: [address] [place], [place] [address]Performed By: #### ALLBG ####[facility] LABORATORYCLIA [id number] [place] [address] [place] AMERICAGlucose [Mass/Vol]152 mg/hUQqbi43-075Hesucwwg HospitalComment on above:Order Comment: Specimen Type: ARTERIAL BLOOD SPECIMENOrdering Facility: [facility]Address: [address] [place], [place] [address]Performed By: #### ALLBG ####[facility] LABORATORYCLIA [id number] [place] [address] [place] AMERICAHCO3 (Bld) [Moles/Vol]22 mmol/BNscboo92-68Wzxurcgx HospitalComment on above:Order Comment: Specimen Type: ARTERIAL BLOOD SPECIMENOrdering Facility: [facility]Address: [address] [place], [place] [address]Performed By: #### ALLBG ####[facility] LABORATORYCLIA [id number] [place] [address] [place] Hematocrit (Bld) [Volume fraction]33.1 %Low39.0-51.0[facility] HospitalComment on above:Order Comment: Specimen Type: ARTERIAL BLOOD SPECIMENOrdering Facility: [facility]Address: [address] [place] [address] Performed By: #### ALLBG ####RADHA LABORATORYCLIA [id number] [place] [address] [place] AMERICAHemoglobin (Bld) [Mass/Vol] 10.7 g/dLLow13.0-17.0[facility]on HospitalComment on above:Order Comment: Specimen Type: ARTERIAL BLOOD SPECIMENOrdering Facility: [facility] Address: [address] [place], [place] [address]Performed By: #### ALLBG ####RADHA LABORATORYCLIA [id number] [place] [address] [place] AMERICAINSPIRATORY PRESSURE SET (CMH2O)12 spQ0AIzfhrwXpgtdrzy HospitalComment on above:Order Comment: Specimen Type: ARTERIAL BLOOD SPECIMENOrdering Facility: [facility]Address: [address] [place], [place] [address]Performed By: #### ALLBG ####RADHA LABORATORYCLIA [id number] [place] [address] [place] INVASIVE VENTILATOR MODEPressure A/C (PC-CMVs)NormalValley Springs Behavioral Health HospitalComment on above:Order Comment: Specimen Type: ARTERIAL BLOOD SPECIMENOrdering Facility: [facility]Address: [address] [place] [address] Performed By: #### ALLBG ####RADHA LABORATORYCLIA [id number] [place] [address] [place] AMERICALactate [Moles/Vol]1.5 mmol/L Normal0.5-2.2FWorcester Recovery Center and HospitalComment on above:Order Comment: Specimen Type: ARTERIAL BLOOD SPECIMENOrdering Facility: [facility]Address: [address] [place], [place] [address]Performed By: #### ALLBG ####RADHA LABORATORYCLIA [id number] [place] [id number] [place] AMERICAMethemoglobin (Bld) [Mass fraction]0.6 %Normal0.0-1.5Fmiravista behavioral health center Hospital Comment on above:Order Comment: Specimen Type: ARTERIAL BLOOD SPECIMENOrdering Facility: [facility]Address: [address] [place], [place] [address]Performed By: #### ALLBG ####RADHA LABORATORYCLIA [id number] [place] [id number] [place] AMERICAMINUTE BZCHYZCNJRP95 L/min NormalTryon HospitalComment on above:Order Comment: Specimen Type: ARTERIAL BLOOD SPECIMENOrdering Facility: [facility]Address: [address] [place] [id number] By: #### ALLBG ####RADHA LABORATORYCLIA [id number] [address] STATES OF AMERICAO2 THERAPYVENT=VentilatorNormalTryon HospitalComment on above:Order Comment: Specimen Type: ARTERIAL BLOOD SPECIMENOrdering Facility: [facility]Address: [address] [place], [place] [address]Performed By: #### ALLBG ####[facility] LABORATORYCLIA [id number] [place] [address] [place] AMERICAOxygen (Bld) [Partial pressure]140 mm TbQyha39-86 [facility] HospitalComment on above:Order Comment: Specimen Type: ARTERIAL BLOOD SPECIMENOrdering Facility: [facility]Address: [address] [place], [place] [address]Performed By: #### ALLBG ####[facility] LABORATORYCLIA [id number] [place] [address] [place] Oxyhemoglobin (BldA) [Mass fraction]97 %Kgkotc19-21Swyxmnsc HospitalComment on above:Order Comment: Specimen Type: ARTERIAL BLOOD SPECIMENOrdering Facility: [facility]Address: [address] [place] [id number] Performed By: #### ALLBG ####RADHA LABORATORYCLIA [id number] [place] [id number] [place] AMERICApH (Bld)7.44 [pH]Normal 7.35-7.45Tryon HospitalComment on above:Order Comment: Specimen Type: ARTERIAL BLOOD SPECIMENOrdering Facility: [facility]Address: [address], [place] [address]Performed By: #### ALLBG ####RADHA LABORATORYCLIA [id number] [place] [address]ETPO2 / FIO2 GTGFV999 mmHgNormal>300[facility] HospitalComment on above: Order Comment: Specimen Type: ARTERIAL BLOOD SPECIMENOrdering Facility: [facility]Address: [address] [place] [address] Performed By: #### ALLBG ####RADHA LABORATORYCLIA [id number] [place] [address] [place] AMERICAPotassium [Moles/Vol]4.5 mmol/LNormal3.5-5.0[facility] HospitalComment on above:Order Comment: Specimen Type: ARTERIAL BLOOD SPECIMENOrdering Facility: [facility] Address: [address] [place], [place] [address]Performed By: #### ALLBG ####[facility] LABORATORYCLIA [id number] [address] OF AMERICASET VENTILATOR RESPIRATORY RATE (BPM)20 BPMNormal Tryon HospitalComment on above:Order Comment: Specimen Type: ARTERIAL BLOOD SPECIMENOrdering Facility: [facility]Address: [address] [place], [place] [address]Performed By: #### ALLBG ####[facility] LABORATORYCLIA [id number] [place] [address] [place] [facility]PITALSodium [Moles/Vol]136 mmol/XKqgqkq053-802Njbacmzx HospitalComment on above:Order Comment: Specimen Type: ARTERIAL BLOOD SPECIMENOrdering Facility: [facility]Address: [address] [place], [place] [address]Performed By: #### ALLBG ####RAD[facility] LABORATORYCLIA [id number] [place] [address] [place] OF AMERICABase deficit (BldA) [Moles/Vol]-6 mmol/LLow-2-0 [facility] HospitalComment on above:Order Comment: Specimen Type: ARTERIAL BLOOD SPECIMENOrdering Facility: [facility]Address: [address], [place] [address]Performed By: #### ALLBG ####RADHA LABORATORYCLIA [id number] [place] [id number] [place] OF AMERICABody gjuraxowiad71.6 [degF]NormalFacutler army community hospital HospitalComment on above:Order Comment: Specimen Type: ARTERIAL BLOOD SPECIMENOrdering Facility: [facility]Address: [address] [place], [place] [address]Performed By: #### ALLBG ####RADHA LABORATORYCLIA [id number] [place] [address] [place] OF AMERICACalcium.ionized (Bld) [Mass/Vol]1.17 mmol/LNormal 1.08-1.30[facility] HospitalComment on above:Order Comment: Specimen Type: ARTERIAL BLOOD SPECIMENOrdering Facility: [facility]Address: [address] [place] [id number] By: #### ALLBG ####RADHA LABORATORYCLIA [id number] [address] STATES OF AMERICACalcium.ionized adjusted to pH 7.4 (BldA) [Moles/Vol]1.10 mmol/LNormal 1.08-1.30[facility] HospitalComment on above:Order Comment: Specimen Type: ARTERIAL BLOOD SPECIMENOrdering Facility: [facility]Address: [address] [place] [id number] By: #### ALLBG ####RADHA LABORATORYCLIA [id number] [place] [address] [place] AMERICACarboxyhemoglobin (BldA) [Mass fraction]1.0 %Normal0.0-2.0[facility] HospitalComment on above:Order Comment: Specimen Type: ARTERIAL BLOOD SPECIMENOrdering Facility: [facility]Address: [address] [facility] [address] [place] [id number] Comment: Carboxyhemoglobin Reference Range for Smokers: 2.0-8.0%Performed By: #### ALLBG ####RAD[facility] LABORATORYCLIA [id number] [place] [address] [place] Chloride [Moles/Vol]104 mmol/WUntflw88-817Tiyzydhs HospitalComment on above: Order Comment: Specimen Type: ARTERIAL BLOOD SPECIMENOrdering Facility: [facility]Address: [address] [place] [address] Performed By: #### ALLBG ####[facility] LABORATORYCLIA [id number] [place] [address] [place] OF AMERICACO2 (Bld) [Partial pressure]43 mm XaKzkyzl01-19Xnribxto HospitalComment on above:Order Comment: Specimen Type: ARTERIAL BLOOD SPECIMENOrdering Facility: [facility]Address: [address], [place] [address]Performed By: #### ALLBG ####[facility] LABORATORYCLIA [id number] [place] [address] [place] OF ZGZCGBRMKB389 %NormalTryon HospitalComment on above:Order Comment: Specimen Type: ARTERIAL BLOOD SPECIMENOrdering Facility: [facility] Address: [address] [place], [place] [address]Performed By: #### ALLBG ####[facility] LABORATORYCLIA [id number] [address] STATES OF AMERICAGlucose [Mass/Vol]160 mg/hEBjxr58-732Vzutpubt Hospital Comment on above:Order Comment: Specimen Type: ARTERIAL BLOOD SPECIMENOrdering Facility: [facility]Address: [address] [place], [place] [address]Performed By: #### ALLBG ####[facility] LABORATORYCLIA [id number] [place] [address] [place] AMERICAHCO3 (Bld) [Moles/Vol]20 mmol/BEiy69-84Zucmfqmr HospitalComment on above:Order Comment: Specimen Type: ARTERIAL BLOOD SPECIMENOrdering Facility: [facility]Address: [address] [place], [place] [address]Performed By: #### ALLBG ####[facility] LABORATORYCLIA [id number] [place] [address] [place] OF AMERICAHematocrit (Bld) [Volume fraction]34.6 %Low39.0-51.0[facility] Comment on above:Order Comment: Specimen Type: ARTERIAL BLOOD SPECIMENOrdering Facility: [facility]Address: [address] [place], [place] [address]Performed By: #### ALLBG ####RADHA LABORATORYCLIA [id number] [place] [address] [place] OF AMERICAHemoglobin (Bld) [Mass/Vol] 11.2 g/dLLow13.0-17.0[facility] HospitalComment on above:Order Comment: Specimen Type: ARTERIAL BLOOD SPECIMENOrdering Facility: [facility] Address: [address] [place], [place] [address]Performed By: #### ALLBG ####RADHA LABORATORYCLIA [id number] [place] [address] [place] OF AMERICAINSPIRATORY PRESSURE SET (CMH2O)12 cdL0JUajnsdGaarafvj HospitalComment on above:Order Comment: Specimen Type: ARTERIAL BLOOD SPECIMENOrdering Facility: [facility]Address: [address] [place], [place] [address]Performed By: #### ALLBG ####RADHA LABORATORYCLIA [id number] [place] [address] [place] INVASIVE VENTILATOR MODEPressure A/C (PC-CMVs)NormalValley Springs Behavioral Health HospitalComment on above:Order Comment: Specimen Type: ARTERIAL BLOOD SPECIMENOrdering Facility: [facility]Address: [address] [place] [address] Performed By: #### ALLBG ####RADHA LABORATORYCLIA [id number] [place] [id number] [place] OF AMERICALactate [Moles/Vol]2.8 mmol/L High0.5-2.2Fmiravista behavioral health center HospitalComment on above:Order Comment: Specimen Type: ARTERIAL BLOOD SPECIMENOrdering Facility: [facility]Address: [address] [place], [place] [address]Performed By: #### ALLBG ####RAD[facility] LABORATORYCLIA [id number] [place] [address] [place] OF AMERICAMethemoglobin (Bld) [Mass fraction]1.2 %Normal0.0-1.5Fmiravista behavioral health center Hospital Comment on above:Order Comment: Specimen Type: ARTERIAL BLOOD SPECIMENOrdering Facility: [facility]Address: [address], [place] [address]Wqpronewm By: #### ALLBG ####RADHA LABORATORYCLIA [id number] [place] [address] [place] OF AMERICAMINUTE VENTILATION8 L/min NormalTryon HospitalComment on above:Order Comment: Specimen Type: ARTERIAL BLOOD SPECIMENOrdering Facility: [facility]Address: [address] [place] [id number] By: #### ALLBG ####RADHA LABORATORYCLIA [id number] [place] [address] [place] OF AMERICAO2 THERAPYVENT=VentilatorNormRobert Breck [facility]cur[facility] HospitalComment on above:Order Comment: Specimen Type: ARTERIAL BLOOD SPECIMENOrdering Facility: [facility]Address: [address] [place] [id number] By: #### ALLBG ####RADHA LABORATORYCLIA [id number] [place] [address] [place] OF AMERICAOxygen (Bld) [Partial pressure]99 mm WdOecj25-79Dmwskxcf HospitalComment on above:Order Comment: Specimen Type: ARTERIAL BLOOD SPECIMENOrdering Facility: [facility]Address: [address] [place] [id number] By: #### ALLBG ####RAD[facility] LABORATORYCLIA [id number] [place] [address] [place] Oxyhemoglobin (BldA) [Mass fraction]94 %Fqp38-47Qgwcfkgw HospitalComment on above:Order Comment: Specimen Type: ARTERIAL BLOOD SPECIMENOrdering Facility: [facility]Address: [address] [place] [address] Performed By: #### ALLBG ####RAD[facility] LABORATORYCLIA [id number] [place] [address] [place] OF AMERICAPEEP/CPAP5 lhB2RYydwteCbkiqbza HospitalComment on above:Order Comment: Specimen Type: ARTERIAL BLOOD SPECIMENOrdering Facility: [facility]Address: [address] [place] [id number] By: #### ALLBG ####RADHA LABORATORYCLIA [id number] [place] [address] [place] AMERICApH (Bld)7.29 [pH]Low7.35-7.45[facility] HospitalComment on above:Order Comment: Specimen Type: ARTERIAL BLOOD SPECIMENOrdering Facility: [facility]Address: [address] [place], [place] [address]Performed By: #### ALLBG ####RADHA LABORATORYCLIA [id number] [address] STATES OF [facility] MEDICAL CENTERPO2 / FIO2 DXFCI935 mmHgNormal>300[facility] Hospital Comment on above:Order Comment: Specimen Type: ARTERIAL BLOOD SPECIMENOrdering Facility: [facility]Address: [address] [place], [place] [address]Performed By: #### ALLBG ####RAD[facility] LABORATORYCLIA [id number] [place] [address] [place] AMERICAPotassium [Moles/Vol]4.1 mmol/LNormal3.5-5.0[facility] HospitalComment on above:Order Comment: Specimen Type: ARTERIAL BLOOD SPECIMENOrdering Facility: [facility] Address: [address] [place], [place] [address]Performed By: #### ALLBG ####RADHA LABORATORYCLIA [id number] [address] OF [facility] COUNTY MEDICAL CENTERSET VENTILATOR RESPIRATORY RATE (BPM)16 BPMNormal [facility] HospitalComment on above:Order Comment: Specimen Type: ARTERIAL BLOOD SPECIMENOrdering Facility: [facility]Address: [address] [place], [place] [address]Performed By: #### ALLBG ####RADHA LABORATORYCLIA [id number] [place] [address] [place] AMERICASodium [Moles/Vol]134 mmol/RWjn828-652Mawrdasl HospitalComment on above:Order Comment: Specimen Type: ARTERIAL BLOOD SPECIMENOrdering Facility: [facility]Address: [address] [place], [place] [address]Performed By: #### ALLBG ####RADHA LABORATORYCLIA [id number] [place] [address] [facility] MEDICAL CENTERCB W Auto Differential panel (Bld)on 07-07-2024 Basophils (Bld) [#/Vol]0.00 10*3/uLNormal<0.11Tryon HospitalComment on above: Order Comment: Specimen Type: BLOOD SPECIMENOrdering Facility: [facility] Address:[address] [place], [place] [address]Performed By: #### 14939- 8 ####RADHA LABORATORYCLIA [id number] [place] [address] [place] AMERICABasophils/100 WBC (Bld)0.0 %[facility] Hospital Comment on above:Order Comment: Specimen Type: BLOOD SPECIMENOrdering Facility: [facility] Address:[address] [place] [address] Performed By: #### 10353-6 ####RADHA LABORATORYCLIA [id number] [place] [address] [place] OF [facility] MEDICAL CENTERDifferential cell count method Nom (Bld)ManualNormalTryon HospitalComment on above:Order Comment: Specimen Type: BLOOD SPECIMENOrdering Facility: [facility] Address:[address] [place], [place] [address]Performed By: #### 33467-1 ####RADHA LABORATORYCLIA [id number] [place] [address] [place] AMERICAEosinophils (Bld) [#/Vol]0.00 10*3/uLNormal<0.46[facility] HospitalComment on above:Order Comment: Specimen Type: BLOOD SPECIMENOrdering Facility: [facility] Address:[address] [place] [address] Performed By: #### 46708-8 ####RADHA LABORATORYCLIA [id number] [place] [address] [place] AMERICAEosinophils/100 WBC (Bld)0.0 % NormalTryon HospitalComment on above:Order Comment: Specimen Type: BLOOD SPECIMENOrdering Facility: [facility] Address:[address] [place], [place] [address]Performed By: #### 61719-8 ####RADHA LABORATORYCLIA [id number] [place] [address] [place] Erythrocyte distribution width (RBC) [Ratio]13.6 %Ndrnta49.5-15.0Tryon HospitalComment on above:Order Comment: Specimen Type: BLOOD SPECIMENOrdering Facility: [facility] Address:[address] [place], [place] [address]Performed By: #### 21341-1 ####RADHA LABORATORYCLIA [id number] [place] [address] [place] AMERICAHematocrit (Bld) [Volume fraction]31.3 %Low39.0-51.0[facility] HospitalComment on above:Order Comment: Specimen Type: BLOOD SPECIMENOrdering Facility: [facility] Address:[address] [place], [place] [address]Performed By: #### 30456- 8 ####RADHA LABORATORYCLIA [id number] [place] [address] [place] AMERICAHemoglobin (Bld) [Mass/Vol]11.0 g/dLLow13.0-17.0[facility]on HospitalComment on above:Order Comment: Specimen Type: BLOOD SPECIMENOrdering Facility: [facility] Address:[address] [place], [place] [address]Performed By: #### 59186-1 ####RADHA LABORATORYCLIA [id number] [place] [address] [place] AMERICALymphocytes (Bld) [#/Vol]0.00 10*3/uLLow1.00-4.00Tryon HospitalComment on above:Order Comment: Specimen Type: BLOOD SPECIMENOrdering Facility: [facility] Address:[address] [place], [place] [address]Performed By: #### 31488-8 ####RADHA LABORATORYCLIA [id number] [place] [address] [place] AMERICALymphocytes/100 WBC (Bld)0.0 %NormalFacutler army community hospital Hospital Comment on above:Order Comment: Specimen Type: BLOOD SPECIMENOrdering Facility: [facility] Address:[address] [place] [address] Performed By: #### 76066-7 ####RADHA LABORATORYCLIA [id number] [address] (RBC) [Entitic mass]29.8 piIilmtl01.0-34.0[facility] HospitalComment on above:Order Comment: Specimen Type: BLOOD SPECIMENOrdering Facility: [facility] Address:[address] [place], [place] [address]Performed By: #### 49121-6 ####RADHA LABORATORYCLIA [id number] [address]HC (RBC) [Mass/Vol]35.1 g/aDGlrtuw46.5-36.0Tryon HospitalComment on above:Order Comment: Specimen Type: BLOOD SPECIMENOrdering Facility: [facility] Address:[address] [place], [place] [address]Performed By: #### 25547- 8 ####RADHA LABORATORYCLIA [id number] [address] (RBC) [Entitic vol]84.8 pVUdiieu77.0-100.0Tryon HospitalComment on above:Order Comment: Specimen Type: BLOOD SPECIMENOrdering Facility: [facility] Address:[address] [place], [place] [address]Performed By: #### 24530-9 ####RADHA LABORATORYCLIA [id number] [address]Monocytes (Bld) [#/Vol] 0.32 10*3/uLNormal<0.87[facility] HospitalComment on above:Order Comment: Specimen Type: BLOOD SPECIMENOrdering Facility: [facility] Address:[address] [place], [place] [address]Performed By: #### 28531-4 ####RADHA LABORATORYCLIA [id number] [place] [address] [place] AMERICAMonocytes/100 WBC (Bld)1.0 %NormalTryon HospitalComment on above: Order Comment: Specimen Type: BLOOD SPECIMENOrdering Facility: [facility] Address:[address] [place], [place] [address]Performed By: #### 15035- 8 ####RADHA LABORATORYCLIA [id number] [place] [address] [place] AMERICANeutrophils (Bld) [#/Vol]31.51 10*3/uLHigh1.45-7.50 Tryon HospitalComment on above:Order Comment: Specimen Type: BLOOD SPECIMENOrdering Facility: [facility] Address:[address] [place], [place] [address]Performed By: #### 85438-0 ####RADHA LABORATORYCLIA [id number] [place] [address] [place] Neutrophils/100 WBC (Bld)99.0 %NormalTryon HospitalComment on above:Order Comment: Specimen Type: BLOOD SPECIMENOrdering Facility: [facility] Address:[address] [place], [place] [address]Performed By: #### 50227- 8 ####RADHA LABORATORYCLIA [id number] [place] [address] [place] AMERICANucleated RBC (Bld) [#/Vol]10*3/uLNormal<0.01Tryon HospitalComment on above:Order Comment: Specimen Type: BLOOD SPECIMENOrdering Facility: [facility] Address:[address] [place], [place] [address]Performed By: #### 91242-0 ####RADHA LABORATORYCLIA [id number] [place] [address] [place] AMERICANucleated RBC/100 WBC (Bld) [Ratio]0.0 /100 WBCNormalTryon HospitalComment on above:Order Comment: Specimen Type: BLOOD SPECIMENOrdering Facility: [facility] Address:[address] [place], [place] [address]Performed By: #### 24566-7 ####RADHA LABORATORYCLIA [id number] [place] [address] [place] AMERICAPlatelet mean volume (Bld) [Entitic vol]9.5 fLNormal 9.0-12.7Fmiravista behavioral health center HospitalComment on above:Order Comment: Specimen Type: BLOOD SPECIMENOrdering Facility: [facility] Address:[address] [place], [place] [address]Performed By: #### 69509-8 ####RADHA LABORATORYCLIA [id number] [place] [address] [place] Platelets (Bld) [#/Vol]348 10*3/vHQygeco840-188Zneutzln HospitalComment on above:Order Comment: Specimen Type: BLOOD SPECIMENOrdering Facility: [facility] Address:[address] [place], [place] [address]Performed By: #### 88936-2 ####RADHA LABORATORYCLIA [id number] [place] [address] [place] AMERICAPlatelets Estimate (Bld) [#/Vol]AdequateNormal Tryon HospitalComment on above:Order Comment: Specimen Type: BLOOD SPECIMENOrdering Facility: [facility] Address:[address] [place], [place] [address]Performed By: #### 97690-6 ####RADHA LABORATORYCLIA [id number] [place] [address] [place] AMERICARBC (Bld) [#/Vol]3.69 10*6/uLLow4.20-6.00[facility] HospitalComment on above:Order Comment: Specimen Type: BLOOD SPECIMENOrdering Facility: [facility] Address:[address] [place], [place] [address]Performed By: #### 17533- 8 ####RADHA LABORATORYCLIA [id number] [place] [address] [place] AMERICARED CELL MORPHReviewed: unremarkableNormalTryon HospitalComment on above:Order Comment: Specimen Type: BLOOD SPECIMENOrdering Facility: [facility] Address:[address] [place], [place] [address]Performed By: #### 73548-4 ####RADHA LABORATORYCLIA [id number] [place] [address] [place] AMERICAWBC (Bld) [#/Vol]31.83 10*3/uLHigh3.70-11.00[facility] HospitalComment on above:Order Comment: Specimen Type: BLOOD SPECIMENOrdering Facility: [facility] Address:[address] [place], [place] [address]Performed By: #### 87350-8 ####RADHA LABORATORYCLIA [id number] [place] [address] [place] AMERICACONSULTon 14-10-9883UWDZQJQJdpcnnQizhmxbd HospitalCONSULT PROGon 73-64-0720ODHIYQV PROGNormalValley Springs Behavioral Health HospitalComprehensive metabolic 2000 panel on 10-80-9138Cyiirjr [Mass/Vol]2.8 g/dLLow3.9-4.9[facility] HospitalComment on above:Order Comment: Specimen Type: BLOOD SPECIMENOrdering Facility: [facility] Address:[address] [place], [place] [address]Performed By: #### 86623-6, , 2776-08 ####RADHA LABORATORYCLIA [id number] [place] [address] [place] AMERICAALP [Catalytic activity/Vol] 101 U/NUngujs05-010Ueheogfn HospitalComment on above:Order Comment: Specimen Type: BLOOD SPECIMENOrdering Facility: [facility] Address:[address] [place] [id number] By: #### 51560-3, , 2776-08 ####RADHA LABORATORYCLIA [id number] [place] [address] [place] AMERICAALT [Catalytic activity/Vol]67 U/UQcpo38-81Zlvcwpbm HospitalComment on above:Order Comment: Specimen Type: BLOOD SPECIMENOrdering Facility: [facility] Address:[address] [place], [place] [address]Performed By: #### 88192-5, , 2776-08 ####RADHA LABORATORYCLIA [id number] [place] [address] [place] AMERICAAnion gap [Moles/Vol]12 mmol/LNormal8-15[facility] HospitalComment on above:Order Comment: Specimen Type: BLOOD SPECIMENOrdering Facility: [facility] Address:[address] [place], [place] [address]Performed By: #### 62563- 8, , 2776-08 ####RADHA LABORATORYCLIA [id number] [place] [address] [place] AMERICAAST [Catalytic activity/Vol]131 U/L Nqye58-31Sbrsurmq HospitalComment on above:Order Comment: Specimen Type: BLOOD SPECIMENOrdering Facility: [facility] Address:[address] [place], [place] [address]Performed By: #### 04912-4, , 2776-08 ####RADHA LABORATORYCLIA [id number] [place] [address] [place] AMERICABilirubin [Mass/Vol]1.2 mg/dLNormal0.2-1.3Fmiravista behavioral health center HospitalComment on above:Order Comment: Specimen Type: BLOOD SPECIMENOrdering Facility: [facility] Address:[address] [place], [place] [address]Performed By: #### 48781-5, , 2776-08 ####RADHA LABORATORYCLIA [id number] [place] [address] [place] AMERICACalcium [Mass/Vol]7.9 mg/dLLow 8.5-10.2Fmiravista behavioral health center HospitalComment on above:Order Comment: Specimen Type: BLOOD SPECIMENOrdering Facility: [facility] Address:[address] [place], [place] [address]Performed By: #### 40794-9, , 2776-08 ####RADHA LABORATORYCLIA [id number] [place] [address] [place] AMERICAChloride [Moles/Vol]104 mmol/AHbudex79-639Xtbpzkro HospitalComment on above:Order Comment: Specimen Type: BLOOD SPECIMENOrdering Facility: [facility] Address:[address] [place], [place] [address]Performed By: #### 75187-4, , 2776-08 ####RADHA LABORATORYCLIA [id number] [place] [address] [place] AMERICACO2 [Moles/Vol]21 mmol/LLow 22-30[facility] on above:Order Comment: Specimen Type: BLOOD SPECIMENOrdering Facility: [facility] Address:[address] [place], [place] [address]Performed By: #### 65592-6, , 2776-08 ####RADHA LABORATORYCLIA [id number] [place] [address] [place] AMERICACreatinine [Mass/Vol]1.23 mg/dLHigh0.73-1.22[facility] on above:Order Comment: Specimen Type: BLOOD SPECIMENOrdering Facility: [facility] Address:[address] [place], [place] [address]Performed By: #### 07837-1, , 2776-08 ####RADHA LABORATORYCLIA [id number] [place] [address] [place] AMERICACreatinine and Glomerular filtration rate.predicted panel (S/P/Bld)74 mL/min/1.73m???Normal>=60FaPondville State Hospital on above:Order Comment: Specimen Type: BLOOD SPECIMENOrdering Facility: [facility] Address:[address] [place] [address]Tbdgmr Comment: Estimated Glomerular Filtration Rate (eGFR) is [...] accurately reflect actual GFR. Performed By: #### 15663-5, , 2776-08 ####RADHA LABORATORYCLIA [id number] [place] [address] [place] AMERICAGlucose [Mass/Vol]157 mg/eZAmvk65-91Mnktejwc HospitalComment on above:Order Comment: Specimen Type: BLOOD SPECIMENOrdering Facility: [facility] Address:[address] [place], [place] [address]Result Comment: The [place] [employer] Association (ADA) provides guidance for cutoff values for fasting glucose and random glucose. The ADA defines fasting as no caloric intake for at least 8 hours. Fasting plasma glucose results between 100 to 125 mg/dL indicate increased risk for diabetes (prediabetes).Fasting plasma glucose results greater than or equal to 126 mg/dL meet the criteria for diagnosis of diabetes. In the absence of unequivocal hyperglycemia, results should be confirmed by repeat testing. In a patient with classic symptoms of hyperglycemia or hyperglycemic crisis, random plasmaglucose results greater than or equal to 200 mg/dL meet the criteria for diagnosis of diabetes.Reference: Standards of Medical Care in Diabetes 2016, [place] [employer]. Diabetes Care. 2016.39(Suppl 1). Performed By: #### 01397-3, , 2776-08 ####RADHA LABORATORYCLIA [id number] [place] [address] [place] Potassium [Moles/Vol]4.8 mmol/LNormal3.7-5.1FPondville State Hospital on above: Order Comment: Specimen Type: BLOOD SPECIMENOrdering Facility: [facility] Address:[address] [place], [place] [id number] By: #### 81676- 8, , 2776-08 ####RADHA LABORATORYCLIA [id number] [place] [id number] [place] AMERICAProtein [Mass/Vol]5.8 g/dLLow 6.3-8.0FaGood Samaritan Medical CenterCommymichigan medical center sault on above:Order Comment: Specimen Type: BLOOD SPECIMENOrdering Facility: [facility] Address:[address] [place], [place] [address]Performed By: #### 24498-5, , 2776-08 ####RADHA LABORATORYCLIA [id number] [place] [address] [place] AMERICASodium [Moles/Vol]137 mmol/AMsnknp934-824Gyeylyor HospitalComment on above:Order Comment: Specimen Type: BLOOD SPECIMENOrdering Facility: [facility] Address:[address] [place], [place] [address]Performed By: #### 76023-8, 91358-1, 2777-1 ####RADHA LABORATORYCLIA [id number] [place] [address] [place] AMERICAUrea nitrogen [Mass/Vol]13 mg/dLNormal9-24[facility] HospitalComment on above:Order Comment: Specimen Type: BLOOD SPECIMENOrdering Facility: [facility] Address:[address] [place], [place] [address]Performed By: #### 51522-3, 80004-1, 277- ####RADHA LABORATORYCLIA [id number] [place] [id number] [place] OF AMERICAFibrinogen PPP-mCncon 88-36-5624Ticfremfwu Coag (PPP) [Mass/Vol]642 mg/qAZfzd859-170Txzsejoc HospitalComment on above:Order Comment: Specimen Type: BLOOD SPECIMENOrdering Facility: [facility] Address:[address] [place], [place] [address]Performed By: #### 3255-7, 08598-1, 31819-1 ####RADHA LABORATORYCLIA [id number] [place] [id number] [place] AMERICAMagnesium SerPl-mCncon 77-05-7676Uxbxeqeyj [Mass/Vol]1.7 mg/dLNormal1.7-2.3[facility] HospitalComment on above:Order Comment: Specimen Type: BLOOD SPECIMENOrdering Facility: [facility] Address:[address] [place], [place] [address]Performed By: #### 69807-4, 53119-8, 2777-1 ####RADHA LABORATORYCLIA [id number] [place] [id number] [place] OF AMERICAPT panel Coag (PPP)on 65-09-2777VFJ Coag (PPP) [Relative time]1.3 {INR}Normal0.9-1.3Fmiravista [facility] HospitalComment on above:Order Comment: Specimen Type: BLOOD SPECIMENOrdering Facility: [facility] Address:[address] [id number] Comment: Vitamin K Antagonist (VKA) Therapeutic Range: INR 2 to 3 (Target INR of 2.5)Note: For patients treated with VKA drugs, such as warfarin, the [place] [employer] 2012 Guideline recommends a therapeutic INR range of 2 to 3 (target INR of 2.5). This recommendation includes high-risk patients with antiphospholipid syndrome with previous arterial or venous thromboembolism, current-generation mechanical or bioprosthetic aortic heart valve replacement.Note: Patients with mechanical aortic valve replacement and additional risk factors for thromboembolic events (atrialfibrillation, previous thromboembolism, LV dysfunction, hypercoagulable conditions) or an older gene ration mechanical AVR (i.e., ball in-Cage) or any mechanical MVR should have a INR therapeutic range of 2.5 to 3.5 (target INR of 3).Tatum GH, et al. Chest 2012, 141:7S-47SNishimura RA, et al. JACC 2017, 70: 252-289Performed By: #### 3255-7, 52887-1, 67700-9 ####RADHA LABORATORYCLIA [id number] [place] [address] [place] AMERICAPT Coag (PPP) [Time]14.5 sHigh 9.7-13.0[facility] HospitalComment on above:Order Comment: Specimen Type: BLOOD SPECIMENOrdering Facility: [facility] Address:[address] [place], [place] [address]Xdckmcbmg By: #### 3255-7, 51941-1, 72060-1 ####RADHA LABORATORYCLIA [id number] [place] [id number] [place] AMERICAPhosphate SerPl-mCncon 06-81-5792Lvrypvuuw [Mass/Vol]4.4 mg/dLNormal 2.7-4.8[facility] HospitalComment on above:Order Comment: Specimen Type: BLOOD SPECIMENOrdering Facility: [facility] Address:[address] [place], [place] [address]Performed By: #### 80083-2, 92475-8, 2777-1 ####RADHA LABORATORYCLIA [id number] [place] [address] [place] AMERICASTAPHYLOCOCCUS AUREUS AND MRSA SCREEN, PCR, NASALon 07-07-2024S. aureus and MRSA panel LINDSAY+probe (Nose)Not detectedNormalWinchendon Hospital Comment on above:Order Comment: Specimen Type: SWABOrdering Facility: [facility] Address: [address] [place], [place] [address]Performed By: #### SAPCR ####[facility] LABCLIA [id number] [place] [address] [place] AMERICAXR ABDOMEN 1V SUPINEon 57-30-6682SC ABDOMEN 1V SUPINENormalTryon HospitalXR CHEST 1V FRONTAL PORTon 34-17-1839VJ CHEST 1V FRONTAL PORTWestborough Behavioral [facility] HospitalaPTT PPPon 07-07-2024 aPTT Coag (PPP) [Time]28.6 iFwaxzu85.0-32.4[facility] HospitalComment on above: Order Comment: Specimen Type: BLOOD SPECIMENOrdering Facility: [facility] Address:[address] [place], [place] [address]Performed By: #### 3255- 7, 62280-3, 72137-7 ####RADHA LABORATORYCLIA [id number] [place] [address] [place] AMERICAABO AND RH ONLYon 56-18-1760AWLE [facility] HospitalComment on above:Order Comment: Specimen Type: BLOOD SPECIMENOrdering Facility: [facility] Address:[address] [place], [place] [address]Performed By: #### ABORH, CONABO ####RADHA BLOOD BANKCLIA [id number] [place] [address] [place] OF AMERICAALLIED HEALTHon 41-90-6677FXPRFIPerham Health HospitalALLIED [facility] HospitalANES PRE-OPon 97-87-8288MCBV PRE-OPNormalVal[facility] ARTERIAL BLOOD GASESon 62-75-8151Mojo deficit (BldA) [Moles/Vol]-6 mmol/LLow-2-0 [facility] HospitalComment on above:Order Comment: Specimen Type: ARTERIAL BLOOD SPECIMENOrdering Facility: [facility]Address: [address] [place], [place] [address]Performed By: #### ALLBG ####POTRERO LABORATORYCLIA [id number] [place] [address] [place] Calcium.ionized (Bld) [Mass/Vol]1.10 mmol/LNormal1.08-1.30[facility] Comment on above:Order Comment: Specimen Type: ARTERIAL BLOOD SPECIMENOrdering Facility: [facility]Address: [address] [id number] By: #### ALLBG ####POTRERO LABORATORYCLIA [id number] [place] [address] [place] AMERICACalcium.ionized adjusted to pH 7.4 (BldA) [Moles/Vol]1.04 mmol/LLow1.08-1.30[facility] HospitalComment on above:Order Comment: Specimen Type: ARTERIAL BLOOD SPECIMENOrdering Facility: [facility]Address: [address] [place] [address] Performed By: #### ALLBG ####POTRERO LABORATORYCLIA [id number] [place] [address] [place] AMERICACarboxyhemoglobin (BldA) [Mass fraction]0.7 %Normal0.0-2.0[facility] HospitalComment on above:Order Comment: Specimen Type: ARTERIAL BLOOD SPECIMENOrdering Facility: [facility]Address: [address] [place] [id number] Comment: Carboxyhemoglobin Reference Range for Smokers: 2.0-8.0%Performed By: #### ALLBG ####[facility] LABORATORYCLIA [id number] [place] [address] [place] AMERICAChloride [Moles/Vol]108 mmol/TQtnc04-515Ymafqdym HospitalComment on above:Order Comment: Specimen Type: ARTERIAL BLOOD SPECIMENOrdering Facility: [facility]Address: [address] [place] [id number] By: #### ALLBG ####RADHA LABORATORYCLIA [id number] [place] [address] [place] AMERICACO2 (Bld) [Partial pressure]40 mm BjRfgttd72-73Jflntopw HospitalComment on above: Order Comment: Specimen Type: ARTERIAL BLOOD SPECIMENOrdering Facility: [facility]Address: [address] [place] [address] Performed By: #### ALLBG ####RADHA LABORATORYCLIA [id number] [place] [address] [place] AMERICACO2 adjusted to patient's actual temperature (Bld) [Partial pressure]NormalTryon HospitalComment on above:Order Comment: Specimen Type: ARTERIAL BLOOD SPECIMENOrdering Facility: [facility]Address: [address] [place] [phone] Performed By: #### ALLBG ####[facility] LABORATORYCLIA [id number] [place] [address] [place] AMERICAGlucose [Mass/Vol]132 mg/dL Xpkd20-760Sonrjemo HospitalComment on above:Order Comment: Specimen Type: ARTERIAL BLOOD SPECIMENOrdering Facility: [facility]Address: [address] [place], [place] [address]Performed By: #### ALLBG ####RADHA LABORATORYCLIA [id number] [place] [address] [place] AMERICAHCO3 (Bld) [Moles/Vol]19 mmol/NJvv48-37Hixvaxkf HospitalComment on above:Order Comment: Specimen Type: ARTERIAL BLOOD SPECIMENOrdering Facility: [facility]Address: [address] [place] [phone] Performed By: #### ALLBG ####RADHA LABORATORYCLIA [id number] [place] [address] [place] AMERICAHematocrit (Bld) [Volume fraction]32.2 %Low39.0-51.0Tryon HospitalComment on above:Order Comment: Specimen Type: ARTERIAL BLOOD SPECIMENOrdering Facility: [facility]Address: [address], [place] [address]Performed By: #### ALLBG ####RADHA LABORATORYCLIA [id number] [place] [address] [place] AMERICAHemoglobin (Bld) [Mass/Vol]10.4 g/dLLow13.0-17.0Tryon HospitalComment on above:Order Comment: Specimen Type: ARTERIAL BLOOD SPECIMENOrdering Facility: [facility]Address: [address] [place], [place] [address]Performed By: #### ALLBG ####RADHA LABORATORYCLIA [id number] [place] [address] [place] AMERICALactate [Moles/Vol]2.8 mmol/LHigh0.5-2.2Fmiravista behavioral health center HospitalComment on above:Order Comment: Specimen Type: ARTERIAL BLOOD SPECIMENOrdering Facility: [facility]Address: [address] [place], [place] [address]Performed By: #### ALLBG ####RADHA LABORATORYCLIA [id number] [place] [address] [place] AMERICAMethemoglobin (Bld) [Mass fraction]1.1 %Normal 0.0-1.5Fmiravista behavioral health center HospitalComment on above:Order Comment: Specimen Type: ARTERIAL BLOOD SPECIMENOrdering Facility: [facility]Address: [address] [place], [place] [address]Performed By: #### ALLBG ####RADHA LABORATORYCLIA [id number] [place] [address] [place] AMERICAOxygen (Bld) [Partial pressure]117 mm UcYurn19-36Nfexuotz HospitalComment on above: Order Comment: Specimen Type: ARTERIAL BLOOD SPECIMENOrdering Facility: [facility]Address: [address] [place] [address] Performed By: #### ALLBG ####RADHA LABORATORYCLIA [id number] [place] [address] [place] AMERICAOxygen adjusted to patient's actual temperature (Bld) [Partial pressure]NormalTryon HospitalComment on above:Order Comment: Specimen Type: ARTERIAL BLOOD SPECIMENOrdering Facility: [facility]Address: [address] [place] [address] Performed By: #### ALLBG ####RADHA LABORATORYCLIA [id number] [place] [address] [place] AMERICAOxyhemoglobin (BldA) [Mass fraction]96 %Bfpnzg99-27Wksdcfqx HospitalComment on above:Order Comment: Specimen Type: ARTERIAL BLOOD SPECIMENOrdering Facility: [facility]Address: [address] [place], [place] [address]Performed By: #### ALLBG ####RADHA LABORATORYCLIA [id number] [place] [address] [place] AMERICApH (Bld)7.30 [pH]Low7.35-7.45Tryon HospitalComment on above:Order Comment: Specimen Type: ARTERIAL BLOOD SPECIMENOrdering Facility: [facility]Address: [address] [place] [address] Performed By: #### ALLBG ####RADHA LABORATORYCLIA [id number] [place] [address] [place] AMERICApH adjusted to patient's actual temperature (Bld)NormalTryon HospitalComment on above:Order Comment: Specimen Type: ARTERIAL BLOOD SPECIMENOrdering Facility: [facility]Address: [address] [place], [place] [address]Performed By: #### ALLBG ####RADHA LABORATORYCLIA [id number] [place] [address] [place] AMERICAPotassium [Moles/Vol]3.8 mmol/LNormal3.5-5.0[facility] HospitalComment on above:Order Comment: Specimen Type: ARTERIAL BLOOD SPECIMENOrdering Facility: [facility]Address: [address] [place], [place] [address]Performed By: #### ALLBG ####RADHA LABORATORYCLIA [id number] [place] [address] [place] AMERICASodium [Moles/Vol]130 mmol/AYws257-785Plufmdux HospitalComment on above:Order Comment: Specimen Type: ARTERIAL BLOOD SPECIMENOrdering Facility: [facility]Address: [address] [place], [place] [address]Performed By: #### ALLBG ####RADHA LABORATORYCLIA [id number] [place] [address] [place] AMERICABase deficit (BldA) [Moles/Vol]-6 mmol/ZPvn-0-2Licrcjwa HospitalComment on above:Order Comment: Specimen Type: ARTERIAL BLOOD SPECIMENOrdering Facility: [facility]Address: [address] [place], [place] [address]Performed By: #### ALLBG ####RADHA LABORATORYCLIA [id number] [place] [address] [place] Calcium.ionized (Bld) [Mass/Vol]1.04 mmol/LLow1.08-1.30[facility] HospitalComment on above:Order Comment: Specimen Type: ARTERIAL BLOOD SPECIMENOrdering Facility: [facility]Address: [address] [place] [address] Performed By: #### ALLBG ####RADHA LABORATORYCLIA [id number] [place] [address] [place] AMERICACalcium.ionized adjusted to pH 7.4 (BldA) [Moles/Vol]1.02 mmol/LLow1.08-1.30[facility] HospitalComment on above: Order Comment: Specimen Type: ARTERIAL BLOOD SPECIMENOrdering Facility: [facility]Address: [address] [place] [address] Performed By: #### ALLBG ####RADHA LABORATORYCLIA [id number] [place] [address] [place] AMERICACarboxyhemoglobin (BldA) [Mass fraction]<0.0Low0.0-2.0[facility] HospitalComment on above:Order Comment: Specimen Type: ARTERIAL BLOOD SPECIMENOrdering Facility: [facility]Address: [address] [place] [phone] Comment: Carboxyhemoglobin Reference Range for Smokers: 2.0-8.0%Performed By: #### ALLBG ####RADHA LABORATORYCLIA [id number] [place] [address] [place] AMERICAChloride [Moles/Vol]107 mmol/KXbpq30-693Ipbbdwqw HospitalComment on above:Order Comment: Specimen Type: ARTERIAL BLOOD SPECIMENOrdering Facility: [facility]Address: [address] [place], [place] [address]Performed By: #### ALLBG ####RADHA LABORATORYCLIA [id number] [place] [address] [place] AMERICACO2 (Bld) [Partial pressure]34 mm XzHei25-25Iyhspekf HospitalComment on above:Order Comment: Specimen Type: ARTERIAL BLOOD SPECIMENOrdering Facility: [facility]Address: [address] [place], [place] [address]Performed By: #### ALLBG ####RADHA LABORATORYCLIA [id number] [place] [address] [place] AMERICACO2 adjusted to patient's actual temperature (Bld) [Partial pressure]NormalTryon HospitalComment on above:Order Comment: Specimen Type: ARTERIAL BLOOD SPECIMENOrdering Facility: [facility]Address: [address] [place], [place] [address]Performed By: #### ALLBG ####RADHA LABORATORYCLIA [id number] [place] [address] [place] AMERICAGlucose [Mass/Vol]109 mg/rIEczw09-949Pbidpokk Hospital Comment on above:Order Comment: Specimen Type: ARTERIAL BLOOD SPECIMENOrdering Facility: [facility]Address: [address] [place], [place] [address]Performed By: #### ALLBG ####RADHA LABORATORYCLIA [id number] [place] [address] [place] AMERICAHCO3 (Bld) [Moles/Vol]19 mmol/LQlj31-61Gbmvcygu HospitalComment on above:Order Comment: Specimen Type: ARTERIAL BLOOD SPECIMENOrdering Facility: [facility]Address: [address] [place], [place] [address]Performed By: #### ALLBG ####[facility] LABORATORYCLIA [id number] [place] [address] [place] AMERICAHematocrit (Bld) [Volume fraction]26.3 %Low39.0-51.0[facility] Hospital Comment on above:Order Comment: Specimen Type: ARTERIAL BLOOD SPECIMENOrdering Facility: [facility]Address: [address] [place], [place] [address]Performed By: #### ALLBG ####RADHA LABORATORYCLIA [id number] [place] [address] [place] AMERICAHemoglobin (Bld) [Mass/Vol]8.5 g/dLLow13.0-17.0Tryon HospitalComment on above:Order Comment: Specimen Type: ARTERIAL BLOOD SPECIMENOrdering Facility: [facility]Address: [address] [place], [place] [address]Performed By: #### ALLBG ####[facility] LABORATORYCLIA [id number] [place] [address] [place] AMERICALactate [Moles/Vol]3.8 mmol/LHigh0.5-2.2Fmiravista behavioral health center HospitalComment on above:Order Comment: Specimen Type: ARTERIAL BLOOD SPECIMENOrdering Facility: [facility]Address: [address] [place] [id number] Performed By: #### ALLBG ####RADHA LABORATORYCLIA [id number] [place] [address] [place] AMERICAMethemoglobin (Bld) [Mass fraction]0.6 %Normal0.0-1.5Fmiravista behavioral health center HospitalComment on above:Order Comment: Specimen Type: ARTERIAL BLOOD SPECIMENOrdering Facility: [facility]Address: [address] [place], [place] [address]Performed By: #### ALLBG ####[facility] LABORATORYCLIA [id number] [place] [address] [place] AMERICAOxygen (Bld) [Partial pressure]113 mm GpLlvb71-51 Tryon HospitalComment on above:Order Comment: Specimen Type: ARTERIAL BLOOD SPECIMENOrdering Facility: [facility]Address: [address] [place], [place] [address]Nehcttmxi By: #### ALLBG ####RADHA LABORATORYCLIA [id number] [place] [address] [place] AMERICAOxygen adjusted to patient's actual temperature (Bld) [Partial pressure]NormalTryon HospitalComment on above:Order Comment: Specimen Type: ARTERIAL BLOOD SPECIMENOrdering Facility: [facility]Address: [address] [place], [place] [address]Performed By: #### ALLBG ####RADHA LABORATORYCLIA [id number] [address] [place] Oxyhemoglobin (BldA) [Mass fraction]95 %Wkvqgz01-88Isezxzqk HospitalComment on above:Order Comment: Specimen Type: ARTERIAL BLOOD SPECIMENOrdering Facility: [facility]Address: [address] [place] [id number] Performed By: #### ALLBG ####RADHA LABORATORYCLIA [id number] [place] [address] [place] AMERICApH (Bld)7.36 [pH]Normal 7.35-7.45Tryon HospitalComment on above:Order Comment: Specimen Type: ARTERIAL BLOOD SPECIMENOrdering Facility: [facility]Address: [address], [place] [address]Performed By: #### ALLBG ####RADHA LABORATORYCLIA [id number] [place] [address] [place] AMERICApH adjusted to patient's actual temperature (Bld)[facility] Hospital Comment on above:Order Comment: Specimen Type: ARTERIAL BLOOD SPECIMENOrdering Facility: [facility]Address: [address] [id number] By: #### ALLBG ####RADHA LABORATORYCLIA [id number] [place] [address] [place] AMERICAPotassium [Moles/Vol]3.4 mmol/LLow3.5-5.0[facility] HospitalComment on above:Order Comment: Specimen Type: ARTERIAL BLOOD SPECIMENOrdering Facility: [facility]Address: [address] [place], [place] [address]Performed By: #### ALLBG ####RADHA LABORATORYCLIA [id number] [place] [address] [place] [facility] CENTERSodium [Moles/Vol]131 mmol/NAxo995-601Qetsplmg HospitalComment on above: Order Comment: Specimen Type: ARTERIAL BLOOD SPECIMENOrdering Facility: [facility]Address: [address] [place] [address] Performed By: #### ALLBG ####RADHA LABORATORYCLIA [id number] [place] [address] [place] AMERICABRIEF OP NOTon 11-34-2031QBEHL OP NOTNoPondville State Hospital HospitalBacteria Bld Culton 32-34-1265Bxepuaqp identified Cx Nom (Bld)ORGANISM ID: 1 Streptococcus anginosus group Refer to specimen collected on 07/06/2024 1841 ([id number]) GRAM STAIN: Gram positive cocci in pairs and chainsAbnoPondville State Hospital HospitalComment on above:Performed By: #### 600-7 ####[facility] LABCLIA [id number] [place] [address] [place] Bacteria identified Cx Nom (Bld)AbnormalFacutler army community hospital HospitalComment on above: Performed By: #### 600-7, IDBCGP ####[facility] LABCLIA [id number] [place] [address] [place] CBC W Auto Differential panel (Bld)on 74-93-2874Vnykfobel (Bld) [#/Vol]10*3/uL Normal<0.11Tryon HospitalComment on above:Order Comment: Specimen Type: BLOOD SPECIMENOrdering Facility: [facility] Address:[address] [place], [place] [address]Performed By: #### 22636-3, [id number] ####[facility] LABCLIA [id number] [place] [address] [place] AMERICABasophils/100 WBC (Bld)0.3 %[facility] Hospital Comment on above:Order Comment: Specimen Type: BLOOD SPECIMENOrdering Facility: [facility] Address:[address] [place] [address] Performed By: #### 09917-3, [id number] ####[facility] LABCLIA [id number] [place] [address] [place] Differential cell count method Nom (Bld)AutoNormalTryon HospitalComment on above:Order Comment: Specimen Type: BLOOD SPECIMENOrdering Facility: [facility] Address:[address] [place], [place] [address]Performed By: #### 03997-6, [id number] ####[facility] LABCLIA [id number] [place] [address] [place] AMERICAEosinophils (Bld) [#/Vol]10*3/uLNormal<0.46Tryon HospitalComment on above:Order Comment: Specimen Type: BLOOD SPECIMENOrdering Facility: [facility] Address:[address] [place], [place] [address]Performed By: #### 77495-2, [id number] ####[facility] LABCLIA [id number] [place] [address] [place] AMERICAEosinophils/100 WBC (Bld)0.2 % [facility] HospitalComment on above:Order Comment: Specimen Type: BLOOD SPECIMENOrdering Facility: [facility] Address:[address] [place], [place] [address]Performed By: #### 14445-1, [id number] ####[facility] LABCLIA [id number] [place] [address] [place] AMERICAErythrocyte distribution width (RBC) [Ratio]13.1 %Normal 11.5-15.0[facility] HospitalComment on above:Order Comment: Specimen Type: BLOOD SPECIMENOrdering Facility: [facility] Address:[address] [place], [place] [address]Performed By: #### 97399-4, [id number] ####[facility] LABCLIA [id number] [place] [address] [place] AMERICAHematocrit (Bld) [Volume fraction]42.1 %Mcjedo57.0-51.0[facility]on HospitalComment on above:Order Comment: Specimen Type: BLOOD SPECIMENOrdering Facility: [facility] Address:[address] [place], [place] [address]Performed By: #### 04188-0, [id number] ####[facility] LABCLIA [id number] [place] [address] [place] AMERICAHemoglobin (Bld) [Mass/Vol]13.3 g/rDTmynfp39.0-17.0[facility] Comment on above:Order Comment: Specimen Type: BLOOD SPECIMENOrdering Facility: [facility] Address:[address] [place] [address] Performed By: #### 86438-6, [id number] ####[facility] LABCLIA [id number] [place] [address] [place] Immature granulocytes (Bld) [#/Vol]0.04 10*3/uLNormal<0.10[facility] Comment on above:Order Comment: Specimen Type: BLOOD SPECIMENOrdering Facility: [facility] Address:[address] [place] [address] Performed By: #### 48147-7, [id number] ####[facility] LABCLIA [id number] [place] [address] [place] Immature granulocytes/100 WBC (Bld)0.6 %NormalValley Springs Behavioral Health HospitalComment on above: Order Comment: Specimen Type: BLOOD SPECIMENOrdering Facility: [facility] Address:[address] [place], [place] [address]Performed By: #### [id number]- [id number], [id number] ####[facility] LABCLIA [id number] [place] [address] [place] OF AMERICALymphocytes (Bld) [#/Vol]0.39 10*3/uLLow1.00-4.00Tryon HospitalComment on above:Order Comment: Specimen Type: BLOOD SPECIMENOrdering Facility: [facility] Address:[address] [place], [place] [address]Performed By: #### [id number], [id number] ####[facility] LABCLIA [id number] [place] [place] [address] [place] OF AMERICALymphocytes/100 WBC (Bld)6.2 % NormalTryon HospitalComment on above:Order Comment: Specimen Type: BLOOD SPECIMENOrdering Facility: [facility] Address:[address] [place], [place] [address]Performed By: #### 58635-3, [id number] ####[facility] LABCLIA [id number] [place] [address] [place] AMERICAMCH (RBC) [Entitic mass]28.9 uqHjpmji73.0-34.0[facility] Comment on above:Order Comment: Specimen Type: BLOOD SPECIMENOrdering Facility: [facility] Address:[address] [place] [address] Performed By: #### 41725-3, [id number] ####[facility] LABCLIA [id number] [place] [address] [place] MCHC (RBC) [Mass/Vol]31.6 g/lZRlkdsi57.5-36.0[facility] HospitalComment on above: Order Comment: Specimen Type: BLOOD SPECIMENOrdering Facility: [facility] Address:[address] [place], [place] [address]Performed By: #### 89742- 8, [id number] ####[facility] LABCLIA [id number] [place] [address] [place] AMERICAMCV (RBC) [Entitic vol] 91.5 pTQesltm86.0-100.0Tryon HospitalComment on above:Order Comment: Specimen Type: BLOOD SPECIMENOrdering Facility: [facility] Address:[address] [place], [place] [address]Performed By: #### 52085-0, [id number] ####[facility] LABCLIA [id number] [place] [address] [place] AMERICAMonocytes (Bld) [#/Vol]0.04 10*3/uLNormal<0.87 [facility] HospitalComment on above:Order Comment: Specimen Type: BLOOD SPECIMENOrdering Facility: [facility] Address:[address] [place], [place] [address]Performed By: #### 95443-3, [id number] ####[facility] LABCLIA [id number] [place] [address] [place] AMERICAMonocytes/100 WBC (Bld)0.6 %NormalValley Springs Behavioral Health HospitalComment on above:Order Comment: Specimen Type: BLOOD SPECIMENOrdering Facility: [facility] Address:[address] [place], [place] [address]Performed By: #### 77505-2, [id number] ####[facility] LABCLIA [id number] [place] [address] [place] AMERICANeutrophils (Bld) [#/Vol]5.84 10*3/uLNormal1.45-7.50[facility] HospitalComment on above:Order Comment: Specimen Type: BLOOD SPECIMENOrdering Facility: [facility] Address:[address] [place], [place] [address]Performed By: #### 50442- 8, [id number] ####[facility] LABCLIA [id number] [place] [address] [place] AMERICANeutrophils/100 WBC (Bld)92.1 %NormalTryon HospitalComment on above:Order Comment: Specimen Type: BLOOD SPECIMENOrdering Facility: [facility] Address:[address] [place], [place] [address]Performed By: #### 29217-2, [id number] ####[facility] LABCLIA [id number] [place] [address] [place] AMERICANucleated RBC (Bld) [#/Vol]10*3/uLNormal<0.01 Tryon HospitalComment on above:Order Comment: Specimen Type: BLOOD SPECIMENOrdering Facility: [facility] Address:[address] [place], [place] [address]Performed By: #### 88556-7, [id number] ####[facility] LABCLIA [id number] [place] [address] [place] AMERICANucleated RBC/100 WBC (Bld) [Ratio]0.0 /100 WBCNormalTryon HospitalComment on above:Order Comment: Specimen Type: BLOOD SPECIMENOrdering Facility: [facility] Address:[address] [place], [place] [address]Performed By: #### 13185-8, [id number] ####[facility] LABCLIA [id number] [place] [address] [place] AMERICAPlatelet mean volume (Bld) [Entitic vol]9.2 fLNormal9.0-12.7Fmiravista behavioral health center HospitalComment on above:Order Comment: Specimen Type: BLOOD SPECIMENOrdering Facility: [facility] Address:[address] [place], [place] [address]Performed By: #### 74861-7, [id number] ####[facility] LABCLIA [id number] [place] [address] [place] AMERICAPlatelets (Bld) [#/Vol]540 10*3/wIHbzi049-318EnjsvtyhBoston Hospital for Women on above:Order Comment: Specimen Type: BLOOD SPECIMENOrdering Facility: [facility] Address:[address] [place] [address] [place], [place] [address]Performed By: #### 92657-8, [id number] ####[facility] LABCLIA [id number] [place] [address] [place] AMERICARBC (Bld) [#/Vol]4.60 10*6/uLNormal4.20-6.00[facility] on above:Order Comment: Specimen Type: BLOOD SPECIMENOrdering Facility: [facility] Address:[address] [place], [place] [address]Performed By: #### 46717-3, [id number] ####[facility] LABCLIA [id number] [place] [address] [place] AMERICAWBC (Bld) [#/Vol]6.34 10*3/uL Normal3.70-11.00[facility] on above:Order Comment: Specimen Type: BLOOD SPECIMENOrdering Facility: [facility] Address:[address] [place], [place] [address]Performed By: #### 04968-7, [id number] ####[facility] LABCLIA [id number] [address] OF AMERICACNOVon 63-51-9206JVQONdpota Visit ([facility]) FAIZA LOZANO ([id number]) 1980 M Date Time Provider Department 07/06/24 3:20 PM AMANDA OVALLES [facility] During your visit today, we recorded the following information about you: Temperature Pulse Blood pressure 97 degrees 116/minute 107/65 Mccain, Keely R, OCCA 07/06/2024 3:03 PM Signed What is the reason for your visit today? New, crohn's Who is your referring physician? Dr. Sellers Are you having poor oral intake? Not eating food, drinking fluids or occasional Ensures Have you had unintentional weight loss of 15 lbs/7 Kg in the last 3-6 months? YES Bowels: moving, unformed, small amounts of sludge Wound: Temperature: No Drains: No Amanda Ovalles MD 07/06/2024 5:49 PM Signed [facility] July 06, 2024 Faiza Lozano 44 year old This consult was requested by Dr. Sellers and my final recommendations will be communicated to the requesting health care provider by way of the shared medical record for internal providers or letter via the [employer] for external providers. Chief Complaint: [...] contrast (radiology procedure) INTRAVENOUS DIRECTED PRN Faiza Noland MD ALLERGIES Allergen Reactions Sulfamethoxazole-Tr* Anaphylaxis No family history on file. Social History Tobacco Use Smoking status: Never Smokeless tobacco: Never Physical Exam: BP 107/65 Pulse 116 Temp 36.1 ?C (97 ?F) SpO2 99% General Appearance: Thin and uncomfortable appearing Abdomen: Non-distended, Guarding present, diffusely tender to palpation, vertical surgical scar noted at midline of the abdomen CT enterography 01/10/24 Scan on 07/05/2024 11:59 AM by Horace Wick: On License Of [facility] - CT ABD/Pelv Report, 01/10/24 Abnormal wall thickening and enhancement involving the distal ileum of approximately 8 to 9 cm in length to the level of the patient's anastomosis. Active Crohn's disease is suspected. No prestenotic dilation is seen to suggest significant stricture/obstruction. Colonoscopy 01/11/24 - Dr. Sellers Scan on 07/06/2024 9:50 AM by Danielle Gray: On License Of [facility] Colonoscopy report [id number] - Anastomosis in the right colon - Bulging lesion at hte anastomosis-suspect may be the invagination of the small bowel seen on recent CTE - biopsied - Ulcerated stricture (more content not included)...NormalOhioHealth [facility] BLOOD TYPEon 73-63-2092Fe Nom (Bld)NegativeNormalValley Springs Behavioral Health HospitalComment on above:Order Comment: Specimen Type: BLOOD SPECIMENOrdering Facility: [facility] Address:[address] [place], [place] [address]Performed By: #### ABORHNOAM ####RADHA BLOOD BANKCLIA [id number] [place] [address] [place] AMERICACONSULT PROGon 91-45-1315USSRQKZ PROGNormalTryon HospitalCT ABD/PEL W IVCONon 00-51-5557TO ABD/PEL W IVCONNormalTryon HospitalComprehensive metabolic 2000 panelon 85-74-5198Vaafphi [Mass/Vol]3.5 g/dLLow3.9-4.9[facility] HospitalComment on above:Order Comment: Specimen Type: BLOOD SPECIMENOrdering Facility: [facility] Address:[address] [place] [address] Performed By: #### 3040-3, , ####RADHA LABORATORYCLIA [id number] [place] [id number] [place] AMERICAALP [Catalytic activity/Vol]137 U/SIsyp38-969Lyphxbuc HospitalComment on above:Order Comment: Specimen Type: BLOOD SPECIMENOrdering Facility: [facility] Address:[address] [place], [place] [address]Performed By: #### 3040- 3, , ####RADHA LABORATORYCLIA [id number] [place] [id number] [place] AMERICAALT [Catalytic activity/Vol]45 U/L Ndnook66-37Bocbybxx HospitalComment on above:Order Comment: Specimen Type: BLOOD SPECIMENOrdering Facility: [facility] Address:[address] [place], [place] [address]Performed By: #### 3040-3, , ####RADHA LABORATORYCLIA [id number] [place] [id number] [place] AMERICAAnion gap [Moles/Vol]30 mmol/LHigh8-15FaGood Samaritan Medical CenterComment on above: Order Comment: Specimen Type: BLOOD SPECIMENOrdering Facility: [facility] Address:[address] [place], [place] [address]Performed By: #### 3040- 3, , ####RADHA LABORATORYCLIA [id number] [place] [address] [place] AMERICAAST [Catalytic activity/Vol]57 U/L Eszl90-06Bjujmzou HospitalComment on above:Order Comment: Specimen Type: BLOOD SPECIMENOrdering Facility: [facility] Address:[address] [place], [place] [address]Performed By: #### 3040-3, , ####RADHA LABORATORYCLIA [id number] [place] [address] [place] AMERICABilirubin [Mass/Vol]1.2 mg/dLNormal0.2-1.3Fmiravista behavioral health center HospitalComment on above:Order Comment: Specimen Type: BLOOD SPECIMENOrdering Facility: [facility] Address:[address] [place], [place] [address]Performed By: #### 3040-3, , ####RADHA LABORATORYCLIA [id number] [place] [id number] [place] AMERICACalcium [Mass/Vol]9.4 mg/dL Normal8.5-10.2Fmiravista behavioral health center HospitalComment on above:Order Comment: Specimen Type: BLOOD SPECIMENOrdering Facility: [facility] Address:[address] [place], [place] [address]Performed By: #### 3040-3, , ####RADHA LABORATORYCLIA [id number] [place] [address] [place] AMERICAChloride [Moles/Vol]90 mmol/SBur12-887Smpusvpl Hospital Comment on above:Order Comment: Specimen Type: BLOOD SPECIMENOrdering Facility: [facility] Address:[address] [place] [address] Performed By: #### 3040-3, , ####[facility] LABORATORYCLIA [id number] [place] [address] [place] AMERICACO2 [Moles/Vol]13 mmol/SXcr30-31Lhuriagg HospitalComment on above:Order Comment: Specimen Type: BLOOD SPECIMENOrdering Facility: [facility] Address:[address] [place], [place] [address]Performed By: #### 3040-3, , ####[facility] LABORATORYCLIA [id number] [place] [id number] [place] AMERICACreatinine [Mass/Vol]1.65 mg/dLHigh0.73-1.22 [facility] on above:Order Comment: Specimen Type: BLOOD SPECIMENOrdering Facility: [facility] Address:[address] [place], [place] [address]Performed By: #### 3040-3, , ####[facility] LABORATORYCLIA [id number] [place] [address] [place] AMERICACreatinine and Glomerular filtration rate.predicted panel (S/P/Bld)52 mL/min/1.73m???Low>=60FaPondville State Hospital on above:Order Comment: Specimen Type: BLOOD SPECIMENOrdering Facility: [facility] Address:[address] [place], [place] [address]Result Comment: Estimated Glomerular Filtration Rate (eGFR) is calculated using the 2020 CKD-EPI creatinine equation. This equation utilizes serum creatinine, sex, and age as parameters. The creatinine assay has traceable calibration to isotope dilution-mass spectrometry. Refer to KDIGO guidelines for clinical interpretation. In patients with unstable renal function, e.g. those with acute kidney injury, the eGFR may not accurately reflect actual GFR.Performed By: #### 3040-3, , ####RADHA LABORATORYCLIA [id number] [place] [address] [place] AMERICAGlucose [Mass/Vol]126 mg/mNMlea99-06Cjmlmtie HospitalComment on above: Order Comment: Specimen Type: BLOOD SPECIMENOrdering Facility: [facility] Address:[address] [place], [place] [address]Result Comment: The [place] Diabetes Association (ADA) provides guidance for cutoff values for fast ing glucose and random glucose. The ADA defines fasting as no caloric intake for at least 8 hours. Fasting plasma glucose results between 100 to 125 mg/dL indicate increased risk for diabetes (prediabetes).Fasting plasma glucose results greater than or equal to 126 mg/dL meet the criteria for diagnosis of diabetes. In the absence of unequivocal hyperglycemia, results should be confirmed by repeattesting. In a patient with classic symptoms of hyperglycemia or hyperglycemic crisis, random plasmaglucose results greater than or equal to 200 mg/dL meet the criteria for diagnosis of diabetes.Reference: Standards of Medical Care in Diabetes 2016, [place] Diabetes Association. Diabetes Care. 2016.39(Suppl 1).Performed By: #### 3040-3, , ####RADHA LABORATORYCLIA [id number] [place] [address] [place] AMERICAPotassium [Moles/Vol]4.0 mmol/LNormal3.7-5.1Fmiravista behavioral health center HospitalComment on above:Order Comment: Specimen Type: BLOOD SPECIMENOrdering Facility: [facility] Address:[address] [place], [place] [address]Performed By: #### 3040-3, , ####RADHA LABORATORYCLIA [id number] [place] [id number] [place] AMERICAProtein [Mass/Vol]8.6 g/dLHigh 6.3-8.0Facutler army community hospital HospitalComment on above:Order Comment: Specimen Type: BLOOD SPECIMENOrdering Facility: [facility] Address:[address] [place], [place] [address]Performed By: #### 3040-3, , ####RADHA LABORATORYCLIA [id number] [place] [id number] [place] AMERICASodium [Moles/Vol]133 mmol/PYxo622-016Jbaljssj HospitalComment on above: Order Comment: Specimen Type: BLOOD SPECIMENOrdering Facility: [facility] Address:[address] [place], [place] [address]Performed By: #### 3040- 3, 46169-9, 61781-1 ####RADHA LABORATORYCLIA [id number] [address] STATES OF AMERICAUrea nitrogen [Mass/Vol]17 mg/dL Normal9-24Tryon HospitalComment on above:Order Comment: Specimen Type: BLOOD SPECIMENOrdering Facility: [facility] Address:[address] [place], [place] [address]Performed By: #### 3040-3, 07314-5, 15625-0 ####RADHA LABORATORYCLIA [id number] [address]ED NOTEon 86-22-0786PL NOTEHNO ID: [id number] Author: TROY WOODWARD RN Service: ? Author Type: Registered Nurse Type: ED Notes Filed: 07/06/2024 16:23 Note Text: Bed: 54-ED Expected date: Expected time: Means of arrival: Comments: triageNormalTryon HospitalED PROV NOTEon 32-25-2939DF PROV NOTENormalTryon HospitalED Triage Noteon 21-95-8746BN Triage NoteNormRobert Breck Brigh[facility] Hospital for Incurables HospitalGRAM POSITIVE ORGANISM ID BY MICROARRAY ([employer] SolutionsIGENE)on 17-97-5123NNSL POSITIVE ORGANISM ID BY MICROARRAY ([employer])BCID INTERPRETATION: Streptococcus anginosus group detected by microarray. Negative for Staphylococcus spp. and Enterococcus spp. by microarray.AbnormalTryon HospitalComment on above:Performed By: #### 600-7, IDBCGP ####[facility] LABCLIA [id number] [address] STATES OF ASHT[facility]UL[facility] COUNTY MEDICAL CENTERHISTORY PHYSICALon 73-92-7699UQAXVGV PHYSICALNormal Tryon HospitalLipase SerPl-cCncon 71-68-0000Naxweo [Catalytic activity/Vol]27 U/DJpuqvi40-82Ytsnkdcw HospitalComment on above:Order Comment: Specimen Type: BLOOD SPECIMENOrdering Facility: [facility] Address:[address] [place], [place] [address]Iotxgbkqb By: #### 3040-3, 95896-0, 52946-6 ####[facility] LABORATORYCLIA [id number] [place] [address] [place] [facility] COUNTY MEDICAL CENTERMagnesium SerPl-mCncon 18-93-2198Jdmxsyceh [Mass/Vol]1.9 mg/dLNormal 1.7-2.3Fmiravista behavioral health center HospitalComment on above:Order Comment: Specimen Type: BLOOD SPECIMENOrdering Facility: [facility] Address:[address] [place], [place] [address]Svbuufccr By: #### 3040-3, 02265-9, 17992-1 ####[facility] LABORATORYCLIA [id number] [place] [address] [place] OF AMERICAOPERATIVE NOon 89-11-9659OWNAZYRQF NONormalFairchillicothe hospital HospitalPT panel Coag (PPP)on 64-74-3277BML Coag (PPP) [Relative time]1.3 {INR}Normal0.9-1.3 [facility] HospitalComment on above:Order Comment: Specimen Type: BLOOD SPECIMENOrdering Facility: [facility] Address:[address] [place] [address]Hrwxno Comment: Vitamin K Antagonist (VKA) Therapeutic Range: INR 2 to 3 (Target INR of 2.5)Note: For patients treated with VKA drugs, such as warfarin, the [place] College [employer] Chest Physicians 2012 Guideline recommends a therapeutic INR range of 2 to 3 (target INR of 2.5). This recommendation inclu al high-risk patients with antiphospholipid syndrome with previous arterial or venous thromboembolism, current-generation mechanical or bioprosthetic aortic heart valve replacement.Note: Patients with mechanical aortic valve replacement and additional risk factors for thromboembolic events (atrialfibrillation, previous thromboembolism, LV dysfunction, hypercoagulable conditions) or an older generation mechanical AVR (i.e., ball in-Cage) or any mechanical MVR should have a INR therapeutic range of 2.5 to 3.5 (target INR of 3).Tatum GH, et al. Chest 2012, 141:7S-47SGerald RA, et al. JACC 2017, 70: 252-289 Performed By: #### 13275-7, 29596-0 ####RADHA LABORATORYCLIA [id number] [address]ETPT Coag (PPP) [Time] 14.0 sHigh9.7-13.0Tryon HospitalComment on above:Order Comment: Specimen Type: BLOOD SPECIMENOrdering Facility: [facility] Address:[address] [place], [place] [address]Performed By: #### 65585-6, 08423-8 ####RADHA LABORATORYCLIA [id number] [address] MORPHOLOGYon 70-22-9552Trnmtympgr LM Ql (Bld)FewWestborough Behavioral Healthcare Hospital HospitalComment on above:Order Comment: Specimen Type: BLOOD SPECIMENOrdering Facility: [facility] Address:[address] [place], [place] [address]Performed By: #### 06248-9, [id number] ####[facility] LABCLIA [id number] [address]ETPlatelet clump LM Ql (Bld)PresentWestborough Behavioral Healthcare Hospital HospitalComment on above:Order Comment: Specimen Type: BLOOD SPECIMENOrdering Facility: [facility] Address:[address] [place], [place] [address]Performed By: #### 68928-7, [id number] ####[facility] LABCLIA [id number] [address]ETPlatelets Estimate (Bld) [#/Vol]IncreasedNormRobert Breck Brigham Hospital for Incurables HospitalComment on above:Order Comment: Specimen Type: BLOOD SPECIMENOrdering Facility: [facility] Address:[address] [place], [place] [address]Performed By: #### 47520-1, [id number] ####[facility] LABCLIA [id number] [address] morphology finding Nom (Bld) Reviewed: see results of individual [facility] HospitalComment on above:Order Comment: Specimen Type: BLOOD SPECIMENOrdering Facility: [facility] Address:[address] [place] [address] Performed By: #### 78287-4, [id number] ####[facility] LABCLIA [id number] [place] [address] [place] WBC Left Shift Ql (Bld)[facility] HospitalComment on above:Order Comment: Specimen Type: BLOOD SPECIMENOrdering Facility: [facility] Address:[address] [place], [place] [address]Performed By: #### 87627- 8, [id number] ####[facility] LABCLIA [id number] [facility] [address] [place] AMERICASEPSIS LACTATEon 76-95-3620Qywbqvr [Moles/Vol]16.0 mmol/LHigh0.0-2.0[facility] HospitalComment on above:Order Comment: Specimen Type: BLOOD SPECIMENOrdering Facility: [facility] Address:[address] [place], [place] [address]Performed By: #### SLACT ####POTRERO LABORATORYCLIA [id number] [place] [address] [place] AMERICASURGICAL PATHOLOGYon 94-80-3706AOSI REPORTNoWest Roxbury VA Medical CenterComment on above:Order Comment: Specimen Type: TISSUE SPECIMENOrdering Facility: [facility] Address: [address] [place], [place] [address]Result Comment: Surgical Pathology Report Case: [id number] Provider: Amanda Ovalles MD Collected: 07/06/2024 10:05 PMOrdering Location: [facility] Received: 07/07/2024 07:03 AM Operating RoomPathologist: Iban Leary MDSpecimen: Small Bowel, Ileostomy, Ileocolic AnastomosisPerformed By: #### S ####[facility] LABCLIA [id number] [address] LABORATORYIA [id number] [address]CLINICAL HISTORYNoTaunton State HospitalComment on above: Order Comment: Specimen Type: TISSUE SPECIMENOrdering Facility: [facility] Address: [address] [place], [place] [address]Result Comment: Pre-op diagnosis:Colon perforation (HCC) [K63.1]Performed By: #### S ####[facility] LABCLIA [id number] [address] [id number] [address]ETDIAGNOSIS COMMENTNoBoston Children's Hospital on above:Order Comment: Specimen Type: TISSUE SPECIMENOrdering Facility: [facility] Address: [address] [place], [place] [address]Result Comment: Immunohistochemical stains were performed to further evaluate the polyp at the anastomotic site. Immunostains for desmin, ZEB, CD34, and S100 are negative. These findings are compatible with an inflammatory/edematous pseudopolyp. This part of the case (Blocks A7-A10) were evaluated by the section of soft tissue pathology (Dr. Moody), who agrees with the diagnosis.Laboratory Developed Test (LDT) Disclaimer:Performance characteristics of immunohistochemical, immunofluorescentand chromogenic in-situ hybridization tests have been determined by the performing laboratory within [facility]???s Yamil Croft Pathology and Laboratory Medicine Department ([facility], [facility], [facility], [facility], [facility], [facility], or [facility]) in a manner consistent with CLIA requirements. One or more of these tests have not been cleared or approved by the FDA. [facility] is regulated under CLIA as qualified to perform high-complexity testing. These tests are used for clinical purposes. Theyshould not be regarded as investigational or for research. Positive and negative controls stain appr opriately.Performed By: #### S ####[facility] LABCLIA [id number] [address] LABORATORYCLIA [id number] [address] StreetComment on above: Order Comment: Specimen Type: TISSUE SPECIMENOrdering Facility: [facility] Address: [address] [place], [place] [address]Result Comment: A. Small bowel and colon, ileocolic anastomosis, resection:- Ileocolic anastomotic segment with chronic active enteritis with ulceration, features compatible with perforation, two (2)inflammatory-type polyps, patchy mural lymphoid aggregates, acute serositis, and adhesions.- No granulomas or dysplasia identified.- Three (3) benign lymph nodes. Performed By: #### S ####[facility] LABCLIA [id number] [address] LABORATORYCLIA [id number] [address] Gardner StreetComment on above:Order Comment: Specimen Type: TISSUE SPECIMENOrdering Facility: [facility] Address: [address] [place], [place] [address]Result Comment: Diagnostic interpretation performed at [facility], [address] [place], [place] [address] CLIA# [id number] Director: Jose E Moss M.D. Performed By: #### S ####[facility] LABCLIA [id number] [address] LABORATORYCLIA [id number] [address] StreetComment on above:Order Comment: Specimen Type: TISSUE SPECIMENOrdering Facility: [facility] Address: [address] [place], [place] [id number] Comment: A. Small Bowel, IleostomyReceived in formalin designated ileocolic anastomoses isan anastomosed segment of small bowel (15 cm in length and 2 to 6 cm in circumference) and large bowel (7.7 cm in length and 8 cm in circumference). The serosal surface is slightly dusky with a markedly ragged area within the mesentery that measures 12 x 7.5 cm. Within this ragged area is a purulent exudate. The bowel is opened to reveal and area of stenosis at the anastomotic line. The distal 9.5 cm a small bowel mucosa is pink-jama and granular with linear ulcerations, grossly resembling a cobblestone appearance. Within this area, 5 cm from the anastomotic line is a possible site of perforation. The remaining small bowel mucosa is pink-jama and slightly flattened with a wall thickness that ranges from 0.5 to 0.9 cm in thickness. The small bowel does not lie flat. At the anastomotic line is a pink-moon pedunculated polyp that measures 2.5 x 1.7 x 1.4 cm. The polyp is located 15 cm from the proximal margin, 7 cm from the distal margin and 1.2 cm from the mesenteric margin. Approximately1.5 cm adjacent to the polyp is a second pink-jama sessile polyp that measures 0.5 x 0.5 x 0.2 cm. The remaining large bowel mucosa is pink-jama and flattened with a wall thickness of 0.5 cm. Drain Tile Machine Operator sections are submitted as follows:A1. Proximal margin perpendicular inked orange and distal margin perpendicular inked blue.A2. Ragged mesentery.A3. Possible site of perforation.A4-A5. Small bowel 10 cm from proximal margin.A6. Area of stenosis.A7-A8. Polyp with muscularis propria.A9-A10. Remaining polyp without muscularis propria.A11. Entire polyp #2.A12. Anastomotic line.A13. Mesenteric margin perpendicular inked black.A14. 3 intact lymph nodes.WE July 07, 2024 8:47 AMGross examination performed at [facility], [address] [place], [place] [address]Performed By: #### S ####[facility] LABCLIA [id number] [place] [id number] [place] STATES OF AMERICAPOTRERO LABORATORYCLIA [id number] LOR[address] AVENUECLE[address]ETTYPE + SCREENon 30-23-3258PDFVVqehgiMbkejpxg HospitalComment on above:Order Comment: Specimen Type: BLOOD SPECIMENOrdering Facility: [facility] Address:[address] [place], [place] [address]Performed By: #### TSCR ####RADHA BLOOD BANKCLIA [id number] [place] [id number] [facility] HOMERh Nom (Bld)NegativeNormal Tryon HospitalComment on above:Order Comment: Specimen Type: BLOOD SPECIMENOrdering Facility: [facility] Address:[address] [place], [place] [address]Performed By: #### TSCR ####RADHA BLOOD BANKCLIA [id number] [address]TYPE AND SCREEN CRLKPMEDBR37/08/2024 23:59NormalTryon HospitalComment on above: Order Comment: Specimen Type: BLOOD SPECIMENOrdering Facility: [facility] Address:[address] [place], [place] [address]Performed By: #### TSCR ####[facility] BLOOD BANKCLIA [id number] [address]aPTT PPPon 51-21-0428aFMH Coag (PPP) [Time]25.9 sNormal 23.0-32.4Fmiravista behavioral health center HospitalComment on above:Order Comment: Specimen Type: BLOOD SPECIMENOrdering Facility: [facility] Address:[address] [place], [place] [address]Performed By: #### 69448-6, 83692-6 ####RADHA LABORATORYCLIA [id number] [address] STATES OF AMERICAALL CBC WITH AUTO DIFFon 09-27-4436DJZJPLNFA ABSOLUTE UUGQ0CQEN HealthcareBasophils/100 WBC (Bld)0.1 %Low0.2 - 2.0 %[facility] Eosinophils/100 WBC (Bld)0 %Low0.9 - 7.0 %[facility] HealthcareErythrocyte distribution width (RBC) [Ratio]12.9 %11.0 - 15.0 %[facility] HealthcareHematocrit (Bld) [Volume fraction]39.7 %Low42.0 - 54.0 %[facility] ServicesHemoglobin (Bld) [Mass/Vol]12.9 g/dLLow14.0 - 18.0 g/dLSaint Francis Hospital & Health ServicesIMMATURE GRANULOCYTES ABS AUTO0.1HighNOMissouri Baptist Medical CenterImmature granulocytes/100 WBC (Bld)0.6 %High0.0 - 0.5 %[facility] ServicesInterpretation and review of laboratory resultsAbnormalMOUNTAIN POINT [facility] HealthcareLYMPHOCYTES ABSOLUTE AUTO0.7LowNOMS HealthcareLymphocytes/100 WBC (Bld)4.4 %Low20.5 - 60.0 %[facility] CenterH (RBC) [Entitic mass]29.3 pg25.9 - 34.0 pgNortheast Regional Medical CenterHC (RBC) [Mass/Vol]32.5 g/dL29.9 - 35.2 g/dLNortheast Regional Medical CenterV (RBC) [Entitic vol]90.2 fL80.0 - 94.0 fLSaint Francis Hospital & Health ServicesMONOCYTES ABSOLUTE AUTO0.4NOMI HealthcareMonocytes/100 WBC (Bld)2.8 %1.7 - 12.0 %[facility] ServicesNEUTROPHILS ABSOLUTE AUTO14.5HighSaint Francis Hospital & Health ServicesNeutrophils/100 WBC (Bld)92.1 %High43.0 - 75.0 %[facility] ServicesPlatelet mean volume (Bld) [Entitic vol]8.4 fLLow9.5 - 13.5 fLSaint Francis Hospital & Health ServicesTB EO #0NODoctors Hospital [facility] UQH426Kxvt [facility] RBC4.4LowNortheast [facility] Health [facility] WBC15.8HighSaint Francis Hospital & Health Services CLINISYNCMOUNTAIN POINT MEDICAL CENTER HealthcareUS.doppler Lower extremity vein - righton 73-11-9835[place] [address] Ultrasound Report Signed Patient: FAIZA LOZANO MR#: [id number] : 1980 Acct:[id number] Age/Sex: 44 / M ADM Date: 06/20/24 Loc: US Attending Dr: Verena Rodriguez NP Ordering Physician: Verena Rodriguez NP Date of Service: 06/20/24 Procedure(s): US venous doppler LE RT Accession Number(s): [id number] cc: Verena Rodriguez NP [place] [id number] Patient Name: FAIZA LOZANO MRN: [facility]:[id number] date: 1980 Sex: M Assigned Patient Location: US Current Patient Location: ED.MAIN Accession/Order Number: [id number] Exam Date: 06/20/2024 09:15 Report Date: 06/20/2024 10:34 At the request of: VERENA RODRIGUEZ Procedure: US venous doppler LE RT EXAMINATION: US venous doppler LE RT HISTORY: Pain And Swelling Right Lower Extremity COMPARISON: No relevant comparison available. FINDINGS: REGION: Right lower extremity THROMBI: Thrombus within superficial veins of distal medial thigh and proximal medial calf. No deep vein thrombus. COMPRESSIBILITY: Normal compressibility of deep veins. FLOW: Normal waveform and antegrade flow between 5 and 20 cm/s within deep veins. OTHER: None. US/US venous doppler LE RT IMPRESSION: 1. No deep vein thrombus within the right lower extremity. 2. Patient's area of erythema and tenderness correspond to superficial thrombophlebitis. Electronically authenticated by: SHAKIRA MCKINNEY Date: 06/20/2024 10:34 Dictated By: Shakira Mckinney M.D. Signed By: 06/20/24 1037 DD/ 1034 TD/TT: Benzol Still Operator:TBHRadiology, Radiologist, - 06/20/2024 [place] [address] Ultrasound Report Signed Patient: FAIZA LOZANO MR#: [id number] : 1980 Acct:[id number] Age/Sex: 44 / M ADM Date: 06/20/24 Loc: US Attending Dr: Verena Rodriguez NP Ordering Physician: Verena Rodriguez NP Date of Service: 06/20/24 Procedure(s): US venous doppler LE RT Accession Number(s): [id number] cc: Verena Rodriguez NP [place] [id number] Patient Name: FAIZA LOZANO MRN: [facility]:[id number] date: 1980 Sex: M Assigned Patient Location: US Current Patient Location: ED.MAIN Accession/Order Number: [id number] Exam Date: 06/20/2024 09:15 Report Date: 06/20/2024 10:34 At the request of: VERENA RODRIGUEZ Procedure: US venous doppler LE RT EXAMINATION: US venous doppler LE RT HISTORY: Pain And Swelling Right Lower Extremity COMPARISON: No relevant comparison available. FINDINGS: REGION: Right lower extremity THROMBI: Thrombus within superficial veins of distal medial thigh and proximal medial calf. No deep vein thrombus. COMPRESSIBILITY: Normal compressibility of deep veins. FLOW: Normal waveform and antegrade flow between 5 and 20 cm/s within deep veins. OTHER: None. US/US venous doppler LE RT IMPRESSION: 1. No deep vein thrombus within the right lower extremity. 2. Patient's area of erythema and tenderness correspond to superficial thrombophlebitis. Electronically authenticated by: SHAKIRA MCKINNEY Date: 06/20/2024 10:34 Dictated By: Shakira Mckinney M.D. Signed By: 06/20/24 1037 DD/ 1034 TD/TT: Benzol Still Operator: CHRISTINE HealthcareRadiology Study observation (narrative)CHRISTINE RoseUS.doppler Lower extremity vein - rightOrdered By: Radiologist Radiology on 23-49-7807EC[facility] Work Phone: amphetamine Screen Ql (U)Ordered By: Sonja Sellers on 67-05-9875Azpozgkeblxt Ql (U)NegativeNegativeSelect Medical Specialty [facility] Barbiturates [Presence] in Urine by Screen methodOrdered By: Sonja Sellers on 27-89-9934Ppebzqpllipn Screen Ql (U)NegativeNegCleveland Clinic South Pointe HospitalBenzodiazepines Screen Ql (U)Ordered By: Sonja Sellers on 01-11-2024 Benzodiazepines Ql (U)NegativeNegCleveland Clinic South Pointe Hospital Benzoylecgonine [Presence] in Urine by Screen methodOrdered By: Sonja Sellers on 24-50-6923Ykjfmofezqpnezp Screen Ql (U)NegativeNegCleveland Clinic South Pointe HospitalCannabinoids [Presence] in Urine by Screen methodOrdered By: Sonja Verito on 08-28-9013Apwmcfyqrbdi Screen Ql (U)PositiveNegCleveland Clinic South Pointe HospitalComment on above:These are unconfirmed results and should not be used for legal purposes. Drug Cut-Off Concentration: AMPH 1000 ng/mL WILIAN 200 ng/mL CARSON 200 ng/mL COCM 300 ng/mL OP 300 ng/mL PCP 25 ng/mL THC 20 ng/mLOpiates [Presence] in Urine by Screen methodOrdered By: Sonja Ly on 07-02-6930Kajkzud Screen Ql (U)NegativeNegCleveland Clinic South Pointe Hospital Phencyclidine Screen Ql (U)Ordered By: Sonja Ly on 94-94-3261Kcenwzmhsyhru Ql (U)NegativeNegCleveland Clinic South Pointe Hospital Vital Signs Date TimeVital SignValuePerforming PjukijvizFnypsqww88-35-6804 18:03-0400Body pvpijg303.26 cmSelect Medical Specialty Hospital [facility]ull09-15-2025 18:03-0400Body mass index (BMI) [Ratio]30 kg/j9GxmmrqkjySelect Medical Specialty Hospital - Trumbull09-15-2025 18:03-0400Body vgyxfw77.24 kgSelect Medical Specialty Hospital - [facility]ull09-15-2025 18:03-0400Diastolic blood mauaooaz42 mm[Hg][facility] 04-16-2025 18:03-0400Heart rate88 /[facility] 04-16-2025 18:03-0400Respiratory rate20 /[facility] 04-16-2025 18:03-8174MbL1% (BldA) [Mass fraction]97 %[facility]09-15-2025 18:03-0400Systolic blood wssjwaic103 mm[Hg][facility]06-26-2025 14:49-0400Body .26 cmSelect Medical Specialty Hospital [facility]ull06-26-2025 14:49-0400Body mass index (BMI) [Ratio]28.3 kg/m2 [facility]06-26-2025 14:49-0400Body rfgtxu93.08 kg [facility]06-26-2025 14:49-0400Diastolic blood iajegaiz95 mm[Hg][facility]06-26-2025 14:49-0400Heart rate72 /min [facility]06-26-2025 14:49-0400Systolic blood rohmlwum709 mm[Hg][facility]05-14-2025 17:38-0400Body mass index (BMI) [Ratio]28.12 kg/m2Verena Rodriguez [employer] Work Phone: [facility] ServicesTcjzhjdpvn18-97-7054 17:38-0400Body temperature 98.29 [degF]Verena Rodriguez CHIEF [employer] Work Phone: [facility] ServicesWuiohslhkg23-63-8618 17:38-0400Body suvpfu50.36 kgVerena Rodriguez CHIEF [employer] Work Phone: [facility] ServicesAclixjflfk37-31-5757 17:38-0400Diastolic blood erflyhib95 mm[Hg]Verena Rodriguez CHIEF [employer] Work Phone: [facility] ServicesTzdfuxotcl97-08-5641 17:38-0400Heart rate93 /min Verena Rodriguez CHIEF [employer] Work Phone: [facility] ServicesKrzbmeyakf82-61-1711 17:38-0400Respiratory rate18 /minVerena Rodriguez CHIEF [employer] Work Phone: [facility] ServicesAsxpxwimpm42-17-4175 17:38-4394AwV9% (BldA) [Mass fraction]98 %Verena Rodriguez CHIEF [employer] Work Phone: [facility] ServicesTqvyazchwu43-91-3725 17:38-0400Systolic blood ilusmodh968 mm[Hg]Verena Rodriguez CHIEF [employer] Work Phone: [facility] ServicesMpskzzawqd02-76-3982 15:05-0400Body rblpci323.3 Carol Ovalles MD Work Phone: [facility]03-25-2025 15:05-0400Body mass index (BMI) [Ratio]25.95 kg/w6SbgiooqAmanda Ovalles MD Work Phone: [facility]03-25-2025 15:05-0400Body tdgeyy74.7 kgAmanda Ovalles MD Work Phone: [facility]03-25-2025 15:05-0400Diastolic blood cumflbuv84 mm[Hg]Amanda Ovalles MD Work Phone: [facility]03-25-2025 15:05-0400Heart rate90 /min Amanda Ovalles MD Work Phone: [facility]03-25-2025 15:05-0400Systolic blood iwqnwhnd320 mm[Hg]Amanda Ovalles MD Work Phone: [facility]03-06-2025 09:52-0500Body temperature 98.6 [degF]Chair Nelly Work Phone: [facility]03-06-2025 09:52-0500Diastolic blood kkruhmxl06 mm[Hg]Chair Duchesne Work Phone: [facility]03-06-2025 09:52-0500Heart rate92 /min Chair Duchesne Work Phone: [facility]03-06-2025 09:52-0500Respiratory rate 16 /minChair Nelly Work Phone: [facility]03-06-2025 09:52-5949XsX4% (BldA) [Mass fraction]100 %Chair Nelly Work Phone: [facility]03-06-2025 09:52-0500Systolic blood lwauhqml372 mm[Hg]Chair Duchesne Work Phone: [facility]02-24-2025 18:31-0500Body omfusd791.3 cmPacc Virtual Work Phone: [facility] CampusComment on above:pt kfq95-31-0273 18:31-0500Body mass index (BMI) [Ratio]26.58 kg/m2Pacc Virtual Work Phone: [facility]02-24-2025 18:31-0500Body qjvuzy30.65 kgPacc Virtual Work Phone: [facility] CampusComment on above:pt heq30-08-5234 17:55-0500Body slymrk945.3 cmLisa Michael CHIEF [employer] Work Phone: [facility] ServicesMnoplwacma11-12-7917 17:55-0500Body mass index (BMI) [Ratio]26.76 kg/m2Lisa Michael CHIEF [employer] Work Phone: [facility] ServicesKvwdcjigea31-67-1632 17:55-0500Body temperature 98.49 [degF]Verena Michael CHIEF [employer] Work Phone: [facility] ServicesZotdvfmfcv87-37-9457 17:55-0500Body quumpu04.19 kgLisa Radhashadiagris CHIEF [employer] Work Phone: [facility] ServicesActcdvzkup67-28-3889 17:55-0500Diastolic blood mm[Hg]Verena Michael CHIEF [employer] Work Phone: [facility] ServicesSjepgihakd60-61-3417 17:55-0500Heart rate92 /min Verena Michael CHIEF [employer] Work Phone: [facility] ServicesZpnhuiadtl83-93-7504 17:55-0500Respiratory rate18 /minLi Radhashadiagris CHIEF [employer] Work Phone: [facility] ServicesVsmhvfezxn78-71-3637 17:55-2785XiV9% (BldA) [Mass fraction]99 %Verena Michael CHIEF [employer] Work Phone: [facility] ServicesSnpksmxxeo32-72-7577 17:55-0500Systolic blood savdoqst644 mm[Hg]Verena Michael CHIEF [employer] Work Phone: [facility] ServicesTwujfceatb36-64-4095 09:40-0500Body zbsitb794.26 cmNA Parmindera Work Phone: [facility]01-20-2025 09:40-0500 Body mass index (BMI) [Ratio]23.9 kg/m2NA Gamaliel Work Phone: [phone])[address] [place], [place] [address]01-20-2025 09:40-0500 Body iiyvsz94.48 kgNA Gamaliel Work Phone: [phone])[address] [place], [place] [address]01-14-2025 13:48-0500 Body guttyb982.3 Carol Ovalles MD Work Phone: [facility]01-14-2025 13:48-0500Body mass index (BMI) [Ratio]24.03 kg/c9IcvpcozAmanda Ovalles MD Work Phone: [facility]01-14-2025 13:48-0500Body uorfhl29.8 kgAmanda Ovalles MD Work Phone: [facility]01-14-2025 13:48-0500Diastolic blood kupejcix52 mm[Hg]Amanda Ovalles MD Work Phone: [phone]01-14-2025 13:48-0500Heart doco929 /Hany Ovalles MD Work Phone: [phone]01-14-2025 13:48-0500Systolic blood cedoqfic185 mm[Hg]Amanda Ovalles MD Work Phone: [facility]01-09-2025 13:36-0500Body aemyrq386.3 Cesar Rodriguez CHIEF [employer] Work Phone: noMiss[facility] Medical CenterLbjtchpqch83-18-7011 13:36-0500Body mass index (BMI) [Ratio]24.1 kg/m2Verena Rodriguez CHIEF [employer] Work Phone: noMissouri Baptist Medical CenterAvqiemrtna12-29-4616 13:36-0500Body temperature 98.6 [degF]Verena Rodriguez CHIEF [employer] Work Phone: [facility] ServicesOensuprexg21-76-7987 13:36-0500Body qdnevm62.03 kgVerena Rodriguez CHIEF [employer] Work Phone: [facility] ServicesWupkzqdcqe03-21-1207 13:36-0500Diastolic blood qjoyujul02 mm[Hg]Verena Rodriguez CHIEF [employer] Work Phone: [facility] ServicesMmovqiuxud28-24-3226 13:36-0500Heart rate98 /min Verena Rodriguez CHIEF [employer] Work Phone: [facility] ServicesIeodjoecix40-47-0006 13:36-0500Respiratory rate18 /minLisa Rodriguez CHIEF [employer] Work Phone: [facility] ServicesIwnecodkqy07-68-9731 13:36-0583RqW8% (BldA) [Mass fraction]98 %Verena Rodriguez CHIEF [employer] Work Phone: [facility] ServicesHcaiapdcty67-30-0233 13:36-0500Systolic blood kethqzia596 mm[Hg]Verena Rodriguez CHIEF [employer] Work Phone: [facility] ServicesDwncayaobu08-62-4328 13:05-0500Body mass index (BMI) [Ratio]24.12 kg/m2NA Gamaliel Thorpe MD Work Phone: cC[facility] HospitalEnkxzk73-90-2239 13:05-0500Body temperature 98.2 [degF]JANETTE Thorpe MD Work Phone: cC[facility] HospitalHpsenh26-59-5334 13:05-0500Body wrsoea75.1 kgNA Gamaliel Thorpe MD Work Phone: [phone] Clinic Union HospitalTcfazh44-74-5291 13:05-0500Diastolic blood xpwhnrty31 mm[Hg]JANETTE Thorpe MD Work Phone: cC[facility] HospitalNobovk72-74-2564 13:05-0500Heart rate84 /min JANETTE Thorpe MD Work Phone: cC[facility] HospitalYnlutt75-93-9941 13:05-0500Respiratory rate 20 /HarshadJANETTE Thorpe MD Work Phone: Zcleveland clinic south pointe hospitaland Thgmyw13-61-6996 13:05-0500Systolic blood fvzspfze921 mm[Hg]NA Gamaliel Thorpe MD Work Phone: QCleveland [facility] HospitalPvrtzn95-59-6979 09:52-0500Body dyvbdt866.26 cmNA Gamaliel Work Phone: [phone] [place], [place] 3003512-18-2024 09:52-0500 Body mass index (BMI) [Ratio]19 kg/m2NA Gamaliel Work Phone: 1(072)[address] [place], [place] 3003512-18-2024 09:52-0500 Body elzqth99.51 kgNA Gamaleil Work Phone: [phone])[address] [place], [place] 3003512-06-2024 05:53-0500 SaO2% (BldA) [Mass fraction]97 %VERENA [facility] HospitalComment on above: Order Comment: Specimen Type: ARTERIAL BLOOD SPECIMENOrdering Facility: [facility]Address: [address] [place] [id number] Performed By: #### ALLBG ####RADHA LABORATORYCLIA [id number] [address]12-06-2024 00:15-1056JtM1% (BldA) [Mass fraction]96 %VERENA [facility] HospitalComment on above:Order Comment: Specimen Type: ARTERIAL BLOOD SPECIMENOrdering Facility: [facility]Address: [address] [place], [place] [address]Kpzanfvce By: #### ALLBG ####RADHA LABORATORYCLIA [id number] [place] [id number] [facility]12-05-2024 22:43-0568NyE9% (BldA) [Mass fraction] 97 %VERENA [facility] HospitalComment on above:Order Comment: Specimen Type: ARTERIAL BLOOD SPECIMENOrdering Facility: [facility]Address: [address] [place], [place] [address]Zdlpbcsxr By: #### ALLBG ####POTRERO LABORATORYCLIA [id number] [place] [id number] [facility]12-05-2024 21:17-8301JcY0% (BldA) [Mass fraction]96 %VERENA RODRIGUEZ [facility] HospitalComment on above:Order Comment: Specimen Type: ARTERIAL BLOOD SPECIMENOrdering Facility: [facility]Address: [address] [place], [place] [address]Vcuscjziy By: #### ALLBG ####POTRERO LABORATORYCLIA [id number] [place] [id number] [facility] 07-06-2024 15:02-0500Body nboyqemrlta50 [degF]Amanda Ovalles MD Work Phone: [facility]12-05-2024 15:02-0500Diastolic blood wihrrbrx21 mm[Hg]Amanda Ovalles MD Work Phone: [facility]12-05-2024 15:02-0500Heart izal560 /Hany Ovalles MD Work Phone: [facility]12-05-2024 15:02-4147RxA1% (BldA) [Mass fraction]99 %Amanda Ovalles MD Work Phone: [facility]12-05-2024 15:02-0500Systolic blood jzyxetom485 mm[Hg]Amanda Ovalles MD Work Phone: [facility]12-04-2024 08:48-0500Body rlyhno384.26 cmNA Gamaliel Work Phone: [facility]12-04-2024 08:48-0500 Body mass index (BMI) [Ratio]22.7 kg/m2NA Gamaliel Work Phone: [facility]12-04-2024 08:48-0500 Body afxtui46.85 kgNA Gamaliel Work Phone: [facility]12-02-2024 18:56-0500 Body dnapxu364.3 Cesar Brunneravrilz [employer]F [employer] Work Phone: [facility] ServicesCdxinkspda11-77-2473 18:56-0500Body mass index (BMI) [Ratio]22.8 kg/m2Lisa Kannanholz [employer]F [employer] Work Phone: [facility] ServicesUpirngkmnc57-63-7249 18:56-0500Body temperature 98.4 [degF]Verena Kannanholz [employer]F [employer] Work Phone: [facility] ServicesWwjjyvwdjm74-29-1305 18:56-0500Body afpruk92.03 kgLisa Radhahholz [employer]F [employer] Work Phone: [facility] ServicesCwxfwrnqar45-07-7098 18:56-0500Diastolic blood hmcildkk18 mm[Hg]Verena Kannanholz [employer]F [employer] Work Phone: [facility] ServicesYbqfesgoxt47-63-3311 18:56-0500Heart lcpe340 /min Verena Radhahholz [employer] Work Phone: [facility] ServicesUiowixwtpd35-61-0787 18:56-0500Respiratory rate20 /minLisa Kannanholz [employer] Work Phone: [facility] ServicesQysvpzuwjj41-67-6932 18:56-8362DhP6% (BldA) [Mass fraction]97 %Verena Kannanholz [employer] Work Phone: [facility] ServicesMsmrabzuoe34-19-7951 18:56-0500Systolic blood yiwfyyzc99 mm[Hg]Verena Radhahholz [employer] Work Phone: [facility] ServicesYesgvlugvc15-77-1700 16:38-0500Body ifogtm764.3 Cheyenneisa Radhashadiaholz [employer] Work Phone: [facility] ServicesPfbwjzrllb31-33-9420 16:38-0500Body mass index (BMI) [Ratio]24.69 kg/m2Lisa Radhahholz [employer] Work Phone: [facility] ServicesMluuumogud29-12-6216 16:38-0500Body temperature 97.81 [degF]Verena Brunnergris [employer]F [employer] Work Phone: [place] [address]Vyfyscuhas75-93-9209 16:38-0500Body zhowfa20.84 kgLisa Brunnerholz [employer] Work Phone: [place] [address]Frgmltoraa08-78-8334 16:38-0500Diastolic blood oumwzjnk46 mm[Hg]Verena Brunnergris [employer] Work Phone: [facility] ServicesMoodxwdlcj00-47-1601 16:38-0500Heart rate79 /min Verena Radhacydney [employer] Work Phone: [place] [address]Wifaldlqyq78-29-0388 16:38-0500Respiratory rate18 /minLisa Brunnergris [employer] Work Phone: [facility] ServicesCcauwpfgrv39-53-3081 16:38-4619BvB5% (BldA) [Mass fraction]99 %Verena Brunnergris [employer] Work Phone: [facility] ServicesUdqdztmsic75-02-3831 16:38-0500Systolic blood svxajqmy711 mm[Hg]Verena Brunnergris [employer] Work Phone: [facility] ServicesPzdvobmelw10-49-1091 17:00-0400Body jeutkg765.3 Cesar Garciacydney [employer] Work Phone: [facility] ServicesLgpfdiudmq45-10-2972 17:00-0400Body mass index (BMI) [Ratio]24.34 kg/m2Lisa Kannanholz [employer] Work Phone: [place] [address]Xzjqahwnqj60-42-2384 17:00-0400Body temperature 97.81 [degF]Verena Brunnergris [employer] Work Phone: [place] [address]Gfwzzpasoc32-02-9200 17:00-0400Body .75 kgVerena Brunneravrilz [employer]F [employer] Work Phone: [facility] ServicesDhddltvgdf35-39-0925 17:00-0400Diastolic blood hxuibgxt04 mm[Hg]Verena Singhz [employer] Work Phone: [facility] ServicesGtzsttnqpg31-21-9132 17:00-0400Heart rate92 /min Verena Singhz [employer] Work Phone: [facility] ServicesAbyjakxrkp85-36-9044 17:00-0400Respiratory rate18 /minVerena Brunnerholz [employer] Work Phone: [facility] ServicesNvmfdzklae55-92-6728 17:00-8859MeQ6% (BldA) [Mass fraction]100 %Verena Singhz [employer] Work Phone: [facility] ServicesNrkdcbhdnt09-25-6195 17:00-0400Systolic blood gusbzfjl937 mm[Hg]Verena Singhz [employer] Work Phone: [facility] ServicesSapeygtvhg60-30-7947 09:26-0400Body ecdqle266.26 Cesar Brunnerholz Work Phone: 1(650)684-[address] [place], [place] 5595710-25-2024 09:26-0400 Body mass index (BMI) [Ratio]24.3 kg/m2Lisa Radhahholz Work Phone: 1([phone])[address]10-25-2024 09:26-0400 Body .84 kgLisa Radhahholz Work Phone: 1(074)[address]09-18-2024 18:02-0400 Body thwcom703.3 Cesar Brunnerholz [employer] Work Phone: [facility] ServicesOfapthsjyo83-40-8334 18:02-0400Body mass index (BMI) [Ratio]23.42 kg/m2Lisa Radhahholz [employer] Work Phone: [facility] ServicesVyzesnsnlu75-03-2041 18:02-0400Body temperature 98.4 [degF]Verena Singhz [employer] Work Phone: [facility] ServicesWiimiomzhi48-42-5734 18:02-0400Body .94 kgTammysa Kannanholz [employer]F [employer] Work Phone: 1(419)547-[address] [place], [place] [address]Ebyyxwezce82-43-2732 18:02-0400Diastolic blood syiirlsf38 mm[Hg]Verena Aichholz [employer] Work Phone: [facility] ServicesNzqoxbyvtp36-91-1952 18:02-0400Heart htmn348 /min Verena Aichholz [employer] Work Phone: [facility] ServicesOxyogfltwa12-77-0997 18:02-0400Respiratory rate18 /minLisa Aichholz [employer] Work Phone: [facility] ServicesDqkwtdnrxg82-93-6175 18:02-8326YrB3% (BldA) [Mass fraction]99 %Verena Aichholz [employer] Work Phone: [facility] ServicesZrxgqxppes65-73-6729 18:02-0400Systolic blood rurwkcmc310 mm[Hg]Verena Aichholz [employer] Work Phone: [facility] ServicesVtlzongzej17-79-7140 15:55-0400Diastolic blood qmfwiymb62 mm[Hg]Verena Aichholz Work Phone: [phone])[address]09-03-2024 15:55-0400 Heart rate65 /minLisa Aichholz Work Phone: 1(685)630-[address] [place], [place] 7247909-03-2024 15:55-0400 Respiratory rate16 /minLisa Aichholz Work Phone: 1([phone])803-[address] [place], [place] 7247909-03-2024 15:55-0400 Systolic blood qoavnkeu360 mm[Hg]Verena Aichholz Work Phone: 1(131)547-[address] [place], [place] 7247909-03-2024 13:26-0400 Body bivboo090.26 cmLisa Aichholz Work Phone: 1([phone]-[facility]2024 13:26-0400 Body .9 kgLisa Aichholz Work Phone: 1(420)637-[facility]06-11-2024 10:58-0400 Diastolic blood dzbgxpze08 mm[Hg]Verena Aichholz Work Phone: [facility]06-11-2024 10:58-0400 Heart rate80 /minVerena Garciahholz Work Phone: [facility]06-11-2024 10:58-0400 Respiratory rate16 /minLisa Aichholz Work Phone: [facility]06-11-2024 10:58-0400 SaO2% (BldA) [Mass fraction]99 %Verenasathya Brunnerholz Work Phone: [facility]06-11-2024 10:58-0400 Systolic blood mm[Hg]Verena Kannanholz Work Phone: 1([phone] [place], [place] 5595706-11-2024 07:27-0400 Body .26 cmLisa Michael Work Phone: [facility]06-11-2024 07:27-0400 Body iaxink84.03 kgLisa Brunnerholyaniv Work Phone: [facility]05-13-2024 10:50-0400 Body .26 cmSelect [facility]05-13-2024 10:50-0400Body mass index (BMI) [Ratio]23 kg/w3HbiubyljvSelect Medical Specialty Hospital - [facility]05-13-2024 10:50-0400Body doqxfs14.76 kgSelect [facility]05-13-2024 10:50-0400Diastolic blood mlqiopxe13 mm[Hg][facility] 12-13-2023 10:50-0400Systolic blood auojlfpl233 mm[Hg][facility]10-12-2023 14:00-0400Body bxqbby138.26 cmMinh Rocha Other [facility] Other 10-12-2023 14:00-0400Body mass index (BMI) [Ratio] 26.28 kg/g5QowuaMinh Rocha Other [facility] Other 10-12-2023 14:00-0400Body scuqzz05.74 kgMinh Rocha Other [facility] [employer] Other Encounters Encounter DateEncounter TypeCare ProviderFacilityStart: 04-16-2025 End: 65-34-9329fdxkaetmyiOSPPremier Health [facility] Work Phone: Start: 04-16-2025 End: 30-84-1035Tzmomqd encounter procedureVerena Rodriguez CH[employer]F [employer]-C-[facility] Work Phone: Start: 01-25-2025 End: 37-72-8420vtpzauysmwMCDPremier Health [facility] Work Phone: Start: 01-25-2025 End: 67-86-7808Yuvbooa encounter procedureCatherpippa Mccallum [facility] Work Phone: Start: 12-13-2024 End: 87-66-0696Fshgrn outpatient visit 15 minutesLisa Michael [employer]F [employer] Work Phone: [facility] FMComment on above:PING (generalized anxiety disorder) (CMS/HCC) (Primary Dx); Crohn's disease of both small and large intestine with other complication; Current mild episode of major depressive disorder without prior episode (HCC) (CMS/HCC)Start: 12-13-2024 End: 67-89-8106joyvdjvzizQHWP RADHAHHOLZNot AvailableStart: 12-13-2024 End: 35-72-3071Dwvbmi flowsheetLisa Garciahholz [employer] Work Phone: [facility] FMStart: 12-13-2024 End: 46-54-5136Pwrktz flowsheetLisa Garciahholz [employer] Work Phone: noMS CWM FMStart: 11-11-2024 End: 86-38-6541YntsmtLnwg Aichholz [employer] Work Phone: [facility] FMComment on above:PING (generalized anxiety disorder) (CMS/HCC); Current mild episode of major depressive disorder without prior episode (HCC) (CMS/HCC)Start: 10-24-2024 End: 89-26-4171ychuzazdusGMQIKGY KESHINROFacility:[facility] Start: 10-24-2024 End: 88-02-7426Dcylipc encounter procedureAmanda Ovalles MD Work Phone: Colorectal SurgeryComment on above:Follow-up examination after colorectal surgery (Primary Dx)Start: 10-14-2024 End: 34-77-1634Pczxzc-up encounterAmanda Ovalles MD Work Phone: FV Provider AdultStart: 10-11-2024 End: 91-00-3288Jjwmhnnleg and management of inpatientVERENA RODRIGUEZ [facility]: 10-09[facility]2024 End: 68-05-1073xwgvoutvmgZRNN JO AICHPROTESTANT HOSPITALYanivFacility:[facility] Start: 10-05-2024 End: 47-85-2174mxcnyxlilhEzwlp Suzette Ayala Work Phone: Hematology/OncologyComment on above:ANNE MARIE (acute kidney injury) (HCC) (Primary Dx)Start: 10-03-2024 End: 00-73-9192Omqmhsxyf to same day surgery centerAmanda Ovalles MD Work Phone: Colorectal SurgeryComment on above:pre operative lab workStart: 10-03-2024 End: 64-91-1202L-mail encounter from caregiverAmanda Ovalles MD Work Phone: Colorectal SurgeryStart: 10-03-2024 End: 85-04-2072Cbzqspsag encounterAmanda Ovalles MD Work Phone: Colorectal SurgeryComment on above:Patient Update Patient QuestionStart: 10-02-2024 End: 03-76-7972abdqkrckdoPLDJ JO AICHHOLZcility:[facility] Start: 10-02-2024 End: 84-14-6132Acknzoewj Result EncounterGeneric External Data ProviderNOMS External Department UnsolicitedStart: 10-02-2024 End: 69-19-9047Xxgsnmsqq Result EncounterGeneric External Data ProviderNOMS External Department UnsolicitedStart: 09-25-2024 End: 33-49-3290Mrwbufhzy to [facility] Virtual Work Phone: Pre AnesthesiaStart: 09-25-2024 End: 39-61-3575Ngivyfkknl consultationDoctors Hospital [facility] Virtual Work Phone: Pre AnesthesiaComment on above:Pre-op evaluation (Primary Dx); Attention to ileostomy (HCC); Crohn's colitis, with intestinal obstruction (HCC)Start: 09-25-2024 End: 91-04-2761Wecvomamza and management of inpatientVERENA RODRIGUEZ [facility]: 09-25-2024 End: 83-19-1120Vbmyizjmcijkw examination doneDoctors Hospital [facility] Virtual Work Phone: [facility] Work Phone: Start: 09-14-2024 End: 04-32-4814Yqpvluwmn to same day surgery Anup Ovalles MD Work Phone: [facility] nampaectal SurgeryComment on above:Attention to ileostomy (HCC) (Primary Dx)Start: 09-14-2024 End: 30-44-5799Gzuphwudeckq consultation with Solitario Ovalles MD Work Phone: Colorectal SurgeryStart: 09-14-2024 End: 44-56-0471gidgncvbkwNKEP GELA RODRIGUEZFacility:[facility] Start: 09-11-2024 End: 18-32-0009Epdqkz outpatient visit 15 Scott Rodriguez CH[employer] Work Phone: noms CWM FMComment on above:PING (generalized anxiety disorder) (CMS/HCC) (Primary Dx); Phlebitis and thrombophlebitis of unspecified deep vessels of right lower extremity (HCC) (CMS/HCC); Crohn's disease of both small and large intestine with other complication (CMS/HCC); Liver abscess; Current mild episode of major depressive disorder without prior episode (HCC) (CMS/HCC)Start: 09-11-2024 End: 65-95-3556fsfcwxzeuaADZI AICHHOLZNot AvailableStart: 09-11-2024 End: 75-62-8827Hihrak flowsheetLisa Aichholz [employer] Work Phone: NOJT CWM FMStart: 09-11-2024 End: 72-01-7422Wyzlxe flowsheetLisa Aichholz [employer] Work Phone: NOTU CWM FMStart: 09-08-2024 End: 90-37-1516RmfkgzUpuv Aichholz CHIEF [employer] Work Phone: NOKQ CWM FMComment on above:PING (generalized anxiety disorder) (CMS/HCC); Current mild episode of major depressive disorder without prior episode (HCC) (CMS/HCC)Start: 08-21-2024 End: 71-87-1633taswvlzhmsCT Gamaliel Work Phone: [facility] Work Phone: Start: 08-21-2024 End: 11-81-3275Cxxfuvt encounter procedureNA Gamaliel Work Phone: [facility] Work Phone: Start: 08-15-2024 End: 05-23-2702Vzpenydap to same day surgery centerAmanda Ovalles MD Work Phone: Colorectal SurgeryComment on above:Post OpStart: 08-15-2024 End: 13-73-9913jzdxqummdnRgmqaczAlverto Ovalles MD Work Phone: Colorectal SurgeryStart: 08-15-2024 End: 40-18-5222Vnydjte encounter procedureAmanda Ovalles MD Work Phone: Colorectal SurgeryComment on above:Attention to ileostomy (HCC) (Primary Dx); Follow-up examination after colorectal surgeryStart: 08-10-2024 End: 35-52-5979Tgwqso flowsLee Brunnergris [employer] Work Phone: noMS CWM FMStart: 08-10-2024 End: 31-74-9026Mizxzw flowsheetVerena Brunnergris [employer]F [employer] Work Phone: noms CWM FMStart: 08-10-2024 End: 16-87-1919Xgnwyk outpatient visit 25 minutesLi Radhashadiagris CHIEF [employer] Work Phone: noms [facility] FMComment on above:Crohn's disease of both small and large intestine with other complication (CMS/HCC) (Primary Dx); Phlebitis and thrombophlebitis of unspecified deep vessels of right lower extremity (HCC) (CMS/HCC); Crohn's colitis, with intestinal obstruction (CMS/HCC); Liver abscess; Malnutrition of moderate degree (CMS/HCC); PING (generalized anxiety disorder) (CMS/HCC); TremorStart: 08-10-2024 End: 90-20-4296vdmyarahtwMVEP AICHHOLZNot AvailableStart: 08-09-2024 End: 55-14-6864Kjsdhtz encounter Zayda Washburn MD Work Phone: [facility] FVComment on above:Liver abscess (Primary Dx); Crohn's colitis, with intestinal obstruction (HCC)Start: 08-07-2024 End: 69-08-5871Ptmlejhep Result EncounterGeneric External Data ProviderNOMS External Department UnsolicitedStart: 08-07-2024 End: 39-72-9115Iwtsqntfy Result EncounterGeneric External Data ProviderNOMS External Department UnsolicitedStart: 07-31-2024 End: 93-06-6475hiaoiapibdPVicente ZuritaaFacility:[facility] Hospitaltart: 07-31-2024 End: 63-08-0731Jzbjfcz encounter Mundo Washburn Work Phone: [facility] Work Phone: Start: 07-28-2024 End: 76-15-4068Dzthbjguo Result EncounterGeneric External Data ProviderNOMS External Department UnsolicitedStart: 07-28-2024 End: 00-43-2122Xgbbzoulk Result EncounterGeneric External Data ProviderNOMS External Department UnsolicitedStart: 07-28-2024 End: 43-36-6108vpfalnyqjkH PARMINDERAFacility:[facility] Centertart: 07-28-2024 End: 33-84-1083Bikwatqbst hospital visit by physicianCt CharlotteRadiologyComment on above:Infection in abdomen (HCC) [K65.9]Start: 07-24-2024 End: 16-71-4297Pukcyhfzj Result EncounterGeneric External Data ProviderNOMS External Department UnsolicitedStart: 07-24-2024 End: 25-05-9399Hlvdaesut Result EncounterGeneric External Data ProviderNOMS External Department UnsolicitedStart: 07-20-2024 End: 79-67-2360Xoziokwvp Result EncounterGeneric External Data ProviderNOMS External Department UnsolicitedStart: 07-20-2024 End: 93-50-7859Qylvqxknb Result EncounterGeneric External Data ProviderNOMS External Department UnsolicitedStart: 07-19-2024 End: 98-52-5523Mrakwly encounter procedureNA Gamaliel Work Phone: On License Of [facility] Gastroenterol Work Phone: Start: 07-08-2024 End: 31-52-3170Kxlphkenc Result EncounterGeneric External Data ProviderNOMS External Department UnsolicitedStart: 07-08-2024 End: 02-14-8743Gapfqtwif Result EncounterGeneric External Data ProviderNOMS External Department UnsolicitedStart: 07-06-2024 End: 40-58-8429Mdodpolnmd and management of inpatientLISA GELA AICHHOLZ [facility]: 07-06-2024 End: 79-18-0210xdxugurhmxMGJMKBI KEFRIENDS HOSPITALROFacility:[facility] Start: 07-06-2024 End: 25-29-9791Pezfovt encounter procedureAmanda Ovalles MD Work Phone: Colorectal SurgeryComment on above:Crohn's disease of both small and large intestine with intestinal obstruction (HCC) (Primary Dx) Start: 07-06-2024 End: 60-56-7929Lufsobjny Result EncounterGeneric External Data ProviderNOMS External Department UnsolicitedStart: 07-06-2024 End: 21-82-9442Tmsakkhfr Result EncounterGeneric External Data ProviderNOMS External Department UnsolicitedStart: 07-05-2024 End: 29-01-8112Qzqjgju encounter procedureJANETTE Washburn Work Phone: On License [facility] Work Phone: Start: 07-04-2024 End: 45-65-6167Hcvdssccd Result EncounterLisa Rodriguez [employer] Work Phone: noms External Department UnsolicitedStart: 07-04-2024 End: 92-92-1116Wsanitaeg Result EncounterLisa Michael [employer] Work Phone: noms External Department UnsolicitedStart: 07-03-2024 End: 29-81-2436Ltcumr outpatient visit 25 minutesLisa Michael CH[employer] Work Phone: noms CWM FMComment on above:Crohn's disease without complication, unspecified gastrointestinal tract location (CMS/HCC) (Primary Dx); Pain and swelling of right lower extremity; Deep vein phlebitis and thrombophlebitis of lower extremity, right (HCC) (CMS/HCC); Nausea and vomiting, unspecified vomiting type; Diarrhea, unspecified type; Weight lossStart: 07-03-2024 End: 83-56-4595oeaachbnakIYPS ROBERTOot AvailableStart: 07-03-2024 End: 21-52-6465Naxrcw flowsheetLisa Rodriguez [employer] Work Phone: noms CWM FMStart: 07-03-2024 End: 97-44-6308Jrzmyu flowsheetLisa Radhahholz CH[employer] Work Phone: noms CWM FMStart: 06-20-2024 End: 42-90-2254Jrbkciauv Result EncounterLisa Aichholz CH[employer] Work Phone: noms External Department UnsolicitedStart: 06-20-2024 End: 74-57-4974Vgalbrrmz Result EncounterLisa Kannanholz [employer] Work Phone: noms External Department UnsolicitedStart: 06-19-2024 End: 14-29-6169Qlrelq outpatient visit 25 minutesLisa Kannanholz CH[employer] Work Phone: NOGD CWM FMComment on above:Deep vein phlebitis and thrombophlebitis of lower extremity, right (HCC) (CMS/HCC) (Primary Dx); Pain and swelling of right lower extremityStart: 06-19-2024 End: 18-89-7176jmeuenkpcfUTRA AICHHOLZNot AvailableStart: 06-19-2024 End: 09-30-9619Gqqait flowsheetLisa Radhahholz CH[employer] Work Phone: noms CWM FMStart: 06-19-2024 End: 64-73-2759Nylgjr flowsheetLisa Radhahholz [employer] Work Phone: noms CWM FMStart: 05-31-2024 End: 24-19-5247Qqgepf outpatient visit 25 minutesLisa Kannanholz [employer] Work Phone: noms CWM FMComment on above:PING (generalized anxiety disorder) (CMS/HCC) (Primary Dx); Crohn's disease without complication, unspecified gastrointestinal tract location (CMS/HCC); Chronic dental infectionStart: 05-31-2024 End: 55-68-9338yutlwfrgcyDYLP AICHHOLZNot AvailableStart: 05-26-2024 End: 11-23-5537sozisxfktrSget Josy Garciahgris Work Phone: [facility] Work Phone: Start: 05-26-2024 End: 85-20-0142Jtfpivb encounter procedureLisa Aichholz Work Phone: On License Of [facility] G[facility] Work Phone: Start: 05-24-2024 End: 89-74-6187ZuhnokDnbi Aichholz CH[employer] Work Phone: noms CWM FMComment on above:AnxietyStart: 05-08-2024 Non-patient / Non-visitLisa Aichholz Work Phone: On License Of [facility] Gastroenterology Work Phone: Start: 04-19-2024 End: 41-47-4677Bfuocd outpatient visit 25 minutesLisa Aichholz [employer] Work Phone: noms CWM FMComment on above:PING (generalized anxiety disorder) (CMS/HCC) (Primary Dx); Acute non-recurrent frontal sinusitis; Current mild episode of major depressive disorder without prior episode (HCC) (CMS/HCC)Start: 04-19-2024 End: 19-69-4019dlwyykvmmgMICF AICHHOLZNot AvailableStart: 04-19-2024 End: 80-56-8241Qigkls flowsheetLisa Aichholz CH[employer] Work Phone: noms CWM FMStart: 04-19-2024 End: 54-52-4861Rqvzqb flowsheetLisa Aichholz CH[employer] Work Phone: noms CWM FMStart: 51-46-4379Rvjmruvtrt RecurringLisa Aichholz Work Phone: [facility]-Infusion Therapy - O/P Work Phone: Start: 03-02-2024 End: 16-33-6900jwiuonfzqrUPYF AICHHOLZNot AvailableStart: 29-89-4893Txj-patient / Non-visitLisa Aichholz Work Phone: On License Of [facility] G[facility] Work Phone: Start: 01-11-2024 End: 28-62-1095Exfrhrxem to same day surgery centerLi Radhashadiaavrilyaniv Work Phone: [facility]-Digestive [facility] Work Phone: Start: 01-11-2024 End: 21-45-9412qqddznhbnrGqyy J Aicshadiagris Work Phone: [facility] Work Phone: Start: 01-10-2024 End: 35-38-0104buzicdsxhlOwya J Aicholz Work Phone: [facility] Work Phone: Start: 01-10-2024 End: 35-05-0460Zurhgah encounter procedureLi Radhacydney Work Phone: [facility]-CT Scan [facility] [place] Work Phone: Start: 12-20-2023 End: 58-98-0147nepbqieowpUQHM AICHHOLZNot AvailableStart: 12-13-2023 End: 46-60-4571iomxxitervJkcplrizxOhioHealth Mansfield Hospital Work Phone: Start: 12-13-2023 End: 91-80-3503Wyiymrk encounter procedureOn License Of [facility] Work Phone: Start: 05-13-2023 End: 87-35-7562dymyezdljqMcwtj Bailey Other [employer] Other Start: 65-27-0590Xkpnim outpatient visit 25 minutes Minh [facility] Procedures DateProcedureProcedure DetailPerforming ClinicianStart: 99-33-7961XLM CBC W AUTO DIFF BLDGeneric External Data ProviderStart: 70-91-3007TER CBC WITH AUTO DIFF Generic External Data ProviderStart: 21-29-8389ZF ABD/PEL W IVCONGeneric External Data ProviderStart: 04-16-0020OJD CBC WITH AUTO DIFFGeneric External Data ProviderStart: 47-33-0301KDI CBC WITH AUTO DIFFGeneric External Data ProviderStart: 07-08-2024 End: 60-46-3807EIZ BACTERIA BLD CULTGeneric External Data ProviderStart: 31-75-1905GabvklgwgoqfzgpkPKTB AICHHOLZStart: 07-76-2329QXLR POSITIVE ORGANISM ID BY MICROARRAY ([employer])Generic External Data ProviderStart: 07-06-2024 Antibody screenLISA AICHHOLZComment on above:Order Comment: Specimen Type: BLOOD SPECIMENOrdering Facility: [facility] Address:[address] [place], [place] [address]Performed By: #### TSCR ####RADHA BLOOD BANKCLIA [id number] [address] STATES OF AMERICAStart: 21-31-3184NWF CBC WITH AUTO DIFFLisa Aichholz [employer] Work Phone: Start: 99-29-3104Iwy-scan xtr veins unilateral/limited studyLisa Aichholz [employer] Work Phone: Start: 01-11-2024 End: 88-62-8533VdjuywokgfjRfkm Aichholz Work Phone: Start: 30-37-3056ZN of small intestineLisa Aichholz Work Phone: Plan of Treatment DateCare ActivityDetailAuthorStart: 26-92-5045Vptsgkjcg for malignant neoplasm of colonNOMS HealthcareStart: 64-01-5003Sggmrbig ScreeningDiabetes Screening [facility]ertart: 34-41-9875Kifooavr ScreeningDiabetes ScreeningUniversity Hospitals Samaritan Medical Centertart: 29-62-1115Hzaolled ScreeningDiabetes ScreeningTr[facility] Health [facility] Start: 64-46-8659Xmaqiiit ScreeningDiabetes ScreeningUniversity Hospitals Samaritan Medical Centertart: 04-16-2025 End: 54-03-8814Salcvyo encounter sedrduaiq55/15/2025 6:00 PM EDT Office Visit [facility] [address] [place] [address] Verena Rodriguez NP [address] [place] [address] [facility] FMStart: 82-36-7639Kvapgclyq vaccinationInfluenza Vaccine (Season Ended)[facility]ertart: 12-13-2024 End: 22-38-8883Vmfiwpw encounter procedureNOMS CW FMComment on above:Crohn's disease of both small and large intestine with other complication (Primary Dx); Current mild episode of major depressive disorder without prior episode (HCC) (CMS/HCC); PING (generalized anxiety disorder) ([facility]/HCC)Start: 12-11-2024 End: 74-52-1318Bleprkg encounter yfxwtbgak69/12/2025 6:00 PM EDT Office Visit [facility] [address] [place] [address] Verena Rodriguez NP [address] [place] [address] [facility] FMStart: 10-11-2024 End: 53-25-9794Qodikzwui to same day surgery eithzn1310/11/2024 7:30 AM EDT - 10/11/2024 10:45 AM EDT Surgery [facility] Operating Room [address] [place] [address] Amanda Ovalles MD [address] [place] [address] [facility] Operating RoomComment on above:CLOSURE ILEOSTOMYStart: 10-11-2024 End: 61-81-8163Lfrhdlk enterostomy lg/small intestineCLOSURE ILEOSTOMY Attention to ileostomy (HCC) 10/11/2024 7:30 AM EDTFV ORStart: 60-80-9547Exkcwvkmrc hospital visit by jxyjohyvd65/12/2025 7:30 AM EDT Hospital Encounter [facility] Operating Room [address] [place] [address] [place] [address] [id number] Attention to ileostomy (HCC) [Z43.2][facility] Operating Room Comment on above:Attention to ileostomy (HCC) [Z43.2]Start: 10-09-2024 End: 24-69-5758Jmozhqedwozcb metabolic 2000 panel - Serum or PlasmaCOMPREHENSIVE METABOLIC PANEL Lab Routine Dehydration Expected: 10/09/2024, Expires: 01/08/2025[facility] Work Phone: Comment on above:Expected: 10/09/2024, Expires: 01/08/2025Start: 10-05-2024 End: 03-17-7383sllcodbcak70/06/2025 10:00 AM EST Infusion Center Hematology/Oncology [address] [place] [address] [place] [address] IVF Hematology/OncologyComment on above:IVFStart: 09-25-2024 End: 99-58-7319Ofehvclweh npbqttourkoj34/24/2025 6:40 PM EST PAT Pre Anesthesia [address] [facility] [place] [address] Virtual, Pacc [place] [address] [facility] [place] [address] DOS re AnesthesiaComment on above:DOS 10/11Start: 09-15-2024 End: 41-61-4432TBD W Auto Differential panel - BloodCOMPLETE BLOOD COUNT AND DIFFERENTIAL Lab Routine Attention to ileostomy (HCC) Expected: 09/15/2024 (Approximate), Expires: 12/15/2024[facility] Work Phone: Comment on above:Expected: 09/15/2024 (Approximate), Expires: 12/15/2024Start: 09-15-2024 End: 61-97-2746Ruancdoptzfwe metabolic 2000 panel - Serum or PlasmaCOMPREHENSIVE METABOLIC PANEL Lab Routine Attention to ileostomy (HCC) Expected: 09/15/2024 (Approximate), Expires: 12/15/2024leveland ClinicComment on above:Expected: 09/15/2024 (Approximate), Expires: 12/15/2024Start: 09-11-2024 End: 32-26-4508Uxeqnri encounter procedureNOMS CWM FMComment on above:PING (generalized anxiety disorder) (CMS/HCC) (Primary Dx); Phlebitis and thrombophlebitis of unspecified deep vessels of right lower extremity (HCC) (CMS/HCC); Crohn's disease of both small and large intestine with other complication (CMS/HCC); Liver abscessStart: 08-15-2024 End: 71-87-1564Gsfbizx encounter cvildcbnt65/14/2025 1:40 PM EST Office Visit Colorectal Surgery [address] [place], [place] [phone] [place] [address] [place], [place] [phone] Follow up appointment: ColorectalColorectal SurgeryComment on above:Follow up appointment: ColorectalStart: 08-10-2024 End: 702953-fynjsfhbmhteyu D3 [Mass/volume] in Serum or PlasmaVitamin D 25 hydroxy Lab Routine Malnutrition of moderate degree (CMS/HCC) Tremor Expected: 08/10/2024 (Approximate), Expires: 08/10/2025[facility] HealthcareComment on above: Expected: 08/10/2024 (Approximate), Expires: 08/10/2025Start: 08-10-2024 End: 16-50-1763ZQX W Auto Differential panel - BloodCBC and differential Lab Routine Malnutrition of moderate degree (CMS/HCC) Tremor Expected: 08/10/2024 (Approximate), Expires: 08/10/2025[facility] Work Phone: Comment on above:Expected: 08/10/2024 (Approximate), Expires: 08/10/2025Start: 08-10-2024 End: 66-82-9620Hdtxzwhkn (Vitamin B12) [Mass/volume] in Serum or PlasmaVitamin B12 Lab Routine Malnutrition of moderate degree (CMS/HCC) Tremor Expected: 08/10/2024 (Approximate), Expires: 08/10/2025[facility] HealthcareComment on above: Expected: 08/10/2024 (Approximate), Expires: 08/10/2025Start: 08-10-2024 End: 13-33-4585Wvtekqqzpqrsv metabolic 2000 panel - Serum or PlasmaComprehensive metabolic panel Lab Routine Malnutrition of moderate degree (CMS/HCC) Tremor Expected: 08/10/2024 (Approximate), Expires: 08/10/2025[facility] HealthcareComment on above:Expected: 08/10/2024 (Approximate), Expires: 08/10/2025Start: 08-10-2024 End: 49-68-0199Oesawvaqa [Mass/volume] in Serum or PlasmaMagnesium Lab Routine Malnutrition of moderate degree (CMS/HCC) Tremor Expected: 08/10/2024 (Approxi mate), Expires: 08/10/2025[facility] HealthcareComment on above:Expected: 08/10/2024 (Approximate), Expires: 08/10/2025Start: 08-10-2024 End: 44-21-0269Wdqjmuy encounter jhsbawmms83/09/2025 1:20 PM EST Office Visit [facility] [address] [place] [address] Verena Rodriguez NP [address] [place] [address] Crohn's colitis, with intestinal obstruction (CMS/HCC) (Primary Dx); Crohn's disease of both smalland large intestine with other complication (CMS/HCC); Phlebitis and thrombophlebitis of unspecified deep vessels of right lower extremity (HCC) (CMS/HCC); Liver abscess; Malnutrition of moderate degree (CMS/HCC); PING (generalized anxiety disorder) (CMS/HCC)[facility] CWM FMComment on above:Crohn's colitis, with intestinal obstruction (CMS/HCC) (Primary Dx); Crohn's disease of both small and large intestine with other complication (CMS/HCC); Phlebitis and thrombophlebitis of unspecified deep vessels of right lower extremity (HCC) (CMS/HCC); Liver abscess; Malnutrition of moderate degree (CMS/HCC); PING (generalized anxiety disorder) (CMS/HCC)Start: 08-09-2024 End: 25-69-6653Jsqujvj encounter xiahlgogc18/08/2025 5:30 PM EST Office Visit [facility] [address] [place] [address] Verena Rodriguez NP [address] [place] [address] [facility] FMStart: 07-06-2024 End: 43-05-3899Mhwrmacysta laparotomy celiotomy w/wo biopsy spxEXPLORATORY LAPAROTOMY ADULT Colon perforation (HCC) 07/06/2024 8:04 PM ESTFV ORStart: 07-03-2024 End: 59-48-1885Ymeaerj encounter procedureNOMS CW FMComment on above:Pain and swelling of right lower extremity (Primary Dx); Deep vein phlebitis and thrombophlebitis of lower extremity, right (HCC) (CMS/HCC); Crohn's disease without complication, unspecified gastrointestinal tract location (CMS/HCC)Start: 07-03-2024 End: 19-40-2871QZP W Auto Differential panel - BloodCBC and differential Lab Routine Crohn's disease without complication, unspecified gastrointestinaltract location (CMS/HCC) Expected: 07/03/2024 (Approximate), Expires: 07/03/2025[facility] Work Phone: Comment on above:Expected: 07/03/2024 (Approximate), Expires: 07/03/2025Start: 07-03-2024 End: 36-26-7292Pryltvuytbzla metabolic 2000 panel - Serum or PlasmaComprehensive metabolic panel Lab Routine Crohn's disease without complication, unspecified gastrointestinal tract location (CMS/HCC) Nausea and vomiting, unspecified vomiting type Diarrhea, unspecified type Expected: 07/03/2024 (Approximate), Expires: 07/03/2025[facility] HealthcareComment on above:Expected: 07/03/2024 (Approximate), Expires: 07/03/2025Start: 07-03-2024 End: 50-28-5490Lkzehegvd [Mass/volume] in Serum or PlasmaMagnesium Lab Routine Crohn's disease without complication, unspecified gastrointestinal tract locat ion (CMS/HCC) Nausea and vomiting, unspecified vomiting type Diarrhea, unspecified type Expected: 07/03/2024 (Approximate), Expires: 07/03/2025[facility] HealthcareComment on above:Expected: 07/03/2024 (Approximate), Expires: 07/03/2025Start: 06-19-2024 End: 77-87-4271Wpyeert encounter hoyxzbjib51/18/2024 4:15 PM EST Office Visit [facility] [address] [place] [address] Verena Rodriguez, VIOLET [address] [place] [address] ArrivedNOOKLAH[facility] [place] FMComment on above:ArrivedStart: 06-19-2024 End: 40-98-9312VQ.doppler Lower extremity vein - rightVascular US lower extremity venous duplex right Imaging STAT Deep vein phlebitis and thrombophlebitis of lower extremity, right (HCC) (CMS/HCC) Pain and swelling of right lower extremity Expected: 06/19/2024 (Approximate), Expires: 06/19/2025 [facility] Work Phone: Comment on above:Expected: 06/19/2024 (Approximate), Expires: 06/19/2025Start: 30-41-1958Hjwfrdeqj for malignant neoplasm of colon [facility]: 05-31-2024 End: 90-81-6596Eunzfrp encounter yzhciulin70/30/2024 6:00 PM EDT Office Visit [facility] [address] [place] [address] Verena Rodriguez, VIOLET [address] [place] [address] [facility] CW FMStart: 04-19-2024 End: 43-26-2069Ixlmefp encounter xkfvsapcd77/18/2024 6:00 PM EDT Office Visit [facility] [address] [place] [address] Michael Verena, CHIEF [employer]IAN [employer]PARTMENT [address] [place] [address] ArrivedNOMS M FMComment on above:ArrivedStart: 04-02-2024 Covid-19 Vaccine ( season)Covid-19 Vaccine ( season) [facility]: 26-52-3594Qcwauzgjz vaccinationInfluenza Vaccine (#1) [facility]ertart: 39-51-8093WlztvymufMercy Health Kings Mills Hospitaltart: 54-43-2694Fgenj panelLipid ScreeningUniversity Hospitals Samaritan Medical Centertart: 13-46-1391Twpdefxpg B Vaccine (1 of 3 - 19+ 3-dose series)Hepatitis B Vaccine (1 of 3 - 19+ 3-dose series)[facility]: 55-02-9550Tcmrm microalbumin profileDTaP,Tdap,Td Vaccine (1 - Tdap)[facility]: 97-13-1301Uygvkp PCP Team Chronic Disease VisitAnnual PCP Team Chronic Disease VisitUniversity Hospitals Samaritan Medical Centertart: 73-74-7346Iahavvn ScreeningAnxiety ScreeningUniversity Hospitals Samaritan Medical Centertart: 1997 Depression ScreeningDepression ScreeningUniversity Hospitals Samaritan Medical Centertart: 1997 Hepatitis C screeningHepatitis C ScreeningUniversity Hospitals Samaritan Medical Centertart: 55-43-1821QQW screeningHIV ScreeningUniversity Hospitals Samaritan Medical Centertart: 10-91-9572JtjrmlykzmAgjwgcdfqj [facility] Centertart: 1979Medicare Annual Wellness (AWV)Medicare Annual Wellness (AWV)[facility] HealthcareStart: 87-22-3947Mfyibslpr for malignant neoplasm of colonNOMS HealthcareBacteria identified in Stool by CultureSelect Medical Specialty Hospital - TrumbullComprehensive metabolic 2000 panel - Serum or PlasmaSelect Medical Specialty Hospital - TrumbullCT Abdomen and PelvisSelect Medical Specialty Hospital - TrumbullCT Abdomen and Pelvis W contrast IVCT ABD/PEL W IVCON Radiology Routine Infection in abdomen (HCC) 07/28/2024 10:10 AM [facility] Work Phone: Hepatitis B core antibody measurementSelect Medical Specialty Hospital - TrumbullHeeastern plumas district hospital B virus surface Ab [Presence] in SerumSelect Medical Specialty Hospital - TrumbullPatient EducationKnow your MedsMemorial Health System [facility] Work Phone: [facility] Payers DatePayer CategoryPayerPolicy [id number] Health Insurance [id number] Cross Blue ShieldBCBS Member Subscriber Plan / Payer (Effective 2022- Present) Name: Faiza Lozano Relation to Subscriber: Self Name: Faiza Lozano PayerID: Not on file Type: Not on file Address: [address] [place] [id number] 2023Medicare (Managed Care)[employer]IC[employer] [id number] [id number] Cross Blue Shield [id number] [id number] 2.160.1.561056.3.57[id number] 2.160.1.018464.3.57[id number] 2.160.1.484036.3.579.[id number] 2.0.1.807016.3.57[id number] 2.0.1.732739.3.579.[id number] 2.160.1.137233.3.579.[id number] 2.16.840.1.998104.3.579.[id number] 2..1.325405.3.579.[id number] 2.160.1.4346[id number] 2.16840.1.403335.3.579.2.531 Social History DateTypeDetailFacilityStart: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 order for IVF from Dr Ovalles. He is not open to come in to [facility] for IVF. Will look for locations closer to his home. He declines going to ER for IVF. Reviewed diet to decrease output and reviewed oral replacement therapy. Will recheck his lab work prior to surgery. Will return call when able to locate nearest infusion therapy * Telephone Encounter - Horace Wick - 10/03/2024 3:48 PM EST Patient Calling Back to speak with nursing staff. CB#: [phone] documented in this encounterTrinity [facility]03-04-2025 Telephone encounter Note * Telephone Encounter - Horace Wick - 10/03/2024 3:48 PM EST Patient Calling Back to speak with nursing staff. CB#: [phone] [facility]03-04-2025 Telephone encounter Note* Telephone Encounter - Tammie De León RN - 10/03/2024 2:03 PM EST Call placed to patient to discuss pre op lab results. No answer. Left message and office contact number. [facility]03-04-2025 Miscellaneous Notes* Telephone Encounter - Tammie De León RN - 10/03/2024 2:03 PM EST Call placed to patient to discuss pre op lab results. No answer. Left message and office contact number. documented in this encounterTrinity Health [facility]02-24-2025 Instructions* Patient Instructions* Zenobia Heck APRN.FENDER MECHANIC - 09/25/2024 6:39 PM EST Images from the original note were not included. [facility] Pre[facility]est[facility] PATIENT PREOPERATIVE INSTRUCTIONS Amanda Ovalles MD has scheduled you for your procedure at this [facility] center: [facility]: [phone] --[id number] [address]. Please check in on the1st floor at registration desk 6. Please read below carefully for your personalized instructions. Dietary Restrictions: - Follow bowel prep instructions: clear liquids need to be stopped 2 hours prior to schedule arrival at facility Medications: Unless instructed differently below, stay on all of your medications until your surgery. If you start any new medications after today's visit, please contact your surgeon. Pre-Surgery Med Instructions Medication Instructions loperamide (IMODIUM) 2 mg cap(s) Do not take the day of surgery OLANZapine (ZYPREXA) 5 mg tablet Take the day of surgery with a small sip of water FLUoxetine (PROZAC) 20 mg capsule Take the day of surgery with a small sip of water If you take any medications for erectile dysfunction-Cialis (Tadalafil), Levitra, Staxyn (Vardenafil) Viagra (Sildenenafil please do not take these for 48 hours before surgery. If you start any new medications after today's visit, please contact the surgeon's office. If you are currently using a [id number] injectable or oral medication for diabetes or weight loss such as Dulaglutide (Trulicity), Exenatide (Byetta, Bydureon), Liraglutide (Victoza, Saxenda), Semaglutide (Ozempic, Wegovy, Rybelsus), or Tirzepatide (Mounjaro), the medicine should be stopped at least 7 days before surgery. These medicines can cause food to remain in your stomach for a very longtime and increase the risks from surgery and anesthesia. Not stopping the medication for a long enough time may result in your surgery being rescheduled. Blood Thinning Medications: - Stop NSAIDS (Ibuprofen, Advil, Aleve, Motrin, Celebrex, Mobic, etc.) 7 days before surgery, as directed by your surgeon. - Stop Aspirin 7 days before surgery, as directed by your surgeon. - Stop ALL herbal and dietary supplements 14 days before surgery. - You may take Tylenol (Acetaminophen) or any of your pain medications that do not contain aspirin or NSAIDS as needed. Important Reminders: - If you use CPAP/BIPAP, bring the machine with you to the surgery center. - If you are prescribed inhalers for breathing, continue using them. - Candy, mints, and tobacco products are NOT permitted the morning of surgery. - Hearing aids, dentures and glasses may be worn the morning of surgery. - NO jewelry, body piercings, makeup, hairpins or contacts are to be worn the day of surgery. If you develop symptoms such as a fever, cold, or flu, or have other changes to your health within TWO DAYS of scheduled surgery or the morning of surgery, please contact the surgery center above. Personal Belongings: -Please have photo ID and insurance cards. -If you do not have a copy of advance directives on file with us, please bring a copy with you on the day of surgery. - Leave ALL valuables and money at home or with family members. - Please bring high-quality footwear, such as sneakers, to the hospital for ambulating post-surgery. For Outpatient Procedures: - YOU MUST HAVE A RESPONSIBLE TRIMMER SAWYER TAKE YOU HOME. A KILN FIRER HELPER OR HEAD OF ACQUISITIONS CANNOT BE MADE A RESPONSIBLE TRIMMER SAWYER. - We recommend that a responsible person stays with you overnight to take care of you. - You cannot stay in a hotel alone after outpatient surgery. You will not be permitted to have yoursurgery, if you do not have someone to take care of you. Arrival Time for Surgery: - The Surgery Center or hospital where you are having surgery will call the afternoon before surgery (or Wednesday for Wednesday surgery) with a scheduled arrival time. - If you have not heard by 4 pm, please contact the surgery center above. Please be aware that emergency situations arise, which may delay or change your surgical time. If this happens, we will notify you as soon as possible and regret any inconvenience. If you already have an Advance Directive, please fax a copy to [phone] or email to for it to be added to your chart. If you do not have an Advance Directive, you can find the appropriate form and more information at [email or web address]. We recommend that youcomplete the Advance Directive form found on the website and bring it with you the day of your surgery. It can be witnessed and scanned into your chart that day. Zenobia Heck APRN.CNP documented in this encounterTrinity Health [facility]02-24-2025 History and physical note * Zenobia Heck APRN.CNP - 09/25/2024 6:27 PM EST Images from the original note were not included. [facility] Pre-Anesthesia Consultation Clinic HISTORY AND PHYSICAL EXAMINATION SERVICE DATE: 09/25/2024 SERVICE TIME: 6:44 PM PRIMARY CARE PHYSICIAN: Verena Rodriguez, VICKI, FENDER MECHANIC Assessment Patient has the following medical conditions which may affect vincent-operative course: Crohn's colitis, with intestinal obstruction (HCC) Assessment: s/p emergency ex lap surgery. Septic shock at that time. Ileostomy plans to be reversed. Bender Activity Status Index: METS: Walk indoors, such as around the house (1.75 METs) Do light work around the house, such as dusting or washing dishes (2.70 METs) Take care of self; that is eating, dressing, bathing, using the toilet (2.75 METs) Walk a block or two on level ground (2.75 METs) Do moderate work around the house, such as vacuuming, sweeping floors, or carrying in groceries (3.50 METs) Do yardwork, such as raking leaves, weeding, or pushing a power mower (4.50 METs) Climb a flight of stairs or walk up a hill (5.50 METs) DASI Score: 23.45 Patient denies any chest pain or undue shortness of breath with the above physical activity. Clinical Frailty Scale: 2. Well STOP-Bang Score: Male patient Denies snoring loudly Denies feeling tired, fatigued, or sleepy during the daytime Has not been observed to stop breathing or choking/gasping during sleep Denies having high blood pressure BMI less than or equal to 35 kg/m^2 Patient 50 years old or younger Does not have a large neck STOP-Bang Score: 1 ANESTHESIA FINDINGS: Intubation History: No history of difficult intubation. No abnormal airway history Significant Anesthesia Considerations: none Airway History: No history of difficult airway No abnormal airway history I - PHYSICAL EVALUATION AIRWAY Patient intubated: No. Tracheostomy tube not present Mallampati: II. TM distance: >3 FB. Neck ROM: full ROM without neurological symptoms. Mouth opening: adequate. Short neck: no. Thick neck: no Peterson present: no Lip Bite Test: II Microretrognathia/Micronagthia/Recessed Chin: No DENTAL Dental findings: poor dentition. II - ANESTHESIA PLAN Anesthetic Plan: other Anesthetic plan additional comments: *PACC/TCI - anesthesia choice. Beta Carlos Monitoring Plan Post Procedure Analgesic Plan Prepared for Surgery: optimally prepared for surgery. Labs ordered by surgeon and to be done prior to surgery CONSULTS: Patient does not require consults for optimization at this time Planned Anesthetic: other anesthesia choice The Following Tests/Procedures Have Been Initiated: No orders of the defined types were placed in this encounter. This is a virtual visit using Recommendi video visit. It required patient-provider interaction for themedical decision making as documented below. REASON FOR VISIT: Faiza Lozano is a 44 year old male who is scheduled for Procedure(s) with comments: CLOSURE ILEOSTOMY (N/A) - Open end ileostomy reversal at the request of Dr. Amanda Ovalles for consultation. My final recommendation will be communicated back to the requesting physician by way of shared medical record or letter. Subjective The patient has the following: COVID-19 Immunization Status Current Care Gaps Covid-19 Vaccine ( season) Never done No completion, postpone, frequency change, or communication history exists for this topic. CHIEF COMPLAINT: Attention to ileostomy HPI: This 44 year old male with a history of Attention to ileostomy is scheduled for the above procedure and presents to the PACC for pre-operative examination. Patient reports closure of ileostomy. Denies any chest pain, SOB, fevers or chills, n/v/d. This is a virtual visit. The visit was conducted using Recommendi video visit. It required patient-provider interaction for the medical decision making as documented below. I have communicated my name and active licensure. The patient's identity and physical location wereverified at the time of this visit. Either the patient or their legal videotape sales representative has been informed of the risks and benefits of and alternatives to treatment through a remote evaluation and consents to proceed with the evaluation remotely. REVIEW OF SYSTEMS: General: No weight loss, malaise or fevers. Neurological: No history of TIA's, stroke, DEAN OF GRADUATE STUDIES tumor, impaired sensorium, hemiplegia, paraplegia orquadraplegia. No neurological symptoms or problems. Respiratory: No history of current cough or dyspnea, or pneumonia in the past 6 weeks. No history of respiratory/pulmonary symptoms or problems. Cardiovascular: No history of HTN requiring medication, no history of angina, CHF, MT, cardiac surgery or stents. Denies rest pain, gangrene or revascularization/amputation for PVD. No history of cardiovascular symptoms or problems. Negative for: chest pain. GI: See HPI. : No history of dysuria, frequency or incontinence, stones or chronic kidney disease. No difficulty urinating, nocturia > 1 time per night or hematuria. Endocrine: No history of diabetes. Has not taken steroids within the past 30 days. No history of endocrinological symptoms or problems. Hematology: No history of bleeding or clotting disorder. Patient is not taking anti-coagulation or platelet medications. No history of hematological symptoms or problems. Oncology: No history of CA metastasis, chemo within 30 days, or radiotherapy within 90 days. No history of oncological symptoms or problems. Psych: Positive for: depression. Musculoskeletal: Negative for joint pain or swelling, back pain or muscle pain. Skin: Negative for lesions, rash and itching. Implanted Devices: No implanted devices. History reviewed. No pertinent past medical history. PAST SURGICAL HISTORY Procedure Laterality Date PAST SURGICAL HISTORY OF ex lap with ilestomy PICC LINE INSERT/CONSULT 07/11/2024 FAMILY HISTORY Problem Relation Age of Onset Anesthesia Problems No Family History Social History Tobacco Use Smoking status: Never Smokeless tobacco: Never Substance Use Topics Alcohol use: Not Currently Drug use: Not Currently Prior to Admission medications as of 09/25/24 1843 Medication Sig Last Dose Taking loperamide (IMODIUM) 2 mg cap(s) Take 2 capsules by mouth before meals and at bedtime. Yes OLANZapine (ZYPREXA) 5 mg tablet Take 5 mg by mouth. Yes FLUoxetine (PROZAC) 20 mg capsule Take 40 mg by mouth. Yes No medication comments found. ALLERGIES Allergen Reactions Sulfamethoxazole-Tr* Anaphylaxis Objective PHYSICAL EXAM: (if completed, exam performed via video enabled technology) General: alert and oriented and healthy appearance. Pertinent negatives noted - not distressed. Skin: normal color, no rash or lesions. HEENT: EOM intact. Cardiovascular: Capillary refill < 3 seconds in BL upper extremities. Respiratory: normal breath sounds, no wheezes or crackles. No chest wall deformity or tenderness. Abdomen: soft. Pertinent negatives noted - not distended and not tender. Extremities: no deformity, no edema or tenderness, no joint swelling or clubbing. Neurological: normal cognition and motor skills. PAIN ASSESSMENT: VITALS: Pulse [cap refil < 3 seconds[ Ht 5' 9 [pt rpt[ (1.75m) Wt 180 lb (81.6kg) BMI 26.57 kg/(m^2). Diagnostic tests reviewed for today's visit: Lab Value Units Date High Low HB 11.5 g/dL 07/15/2024 17.0 13.0 HCT 35.4 % 07/15/2024 51.0 39.0 WBC 7.67 k/uL 07/15/2024 11.00 3.70 PLT 355 k/uL 07/15/2024 400 150 NA 138 mmol/L 07/15/2024 144 136 K 4.0 mmol/L 07/15/2024 5.1 3.7 GLUC 79 mg/dL 07/15/2024 99 74 BUN 18 mg/dL 07/15/2024 24 9 CREAT 0.86 mg/dL 07/15/2024 1.22 0.73 PTSEC 14.5 sec 07/07/2024 13.0 9.7 INR 1.3 no uni* 07/07/2024 1.3 0.9 APTT 28.6 sec 07/07/2024 32.4 23.0 ALT 61 U/L 07/15/2024 54 10 AST 32 U/L 07/15/2024 40 14 TBILI 0.5 mg/dL 07/15/2024 1.3 0.2 TSH No results within date range. Lab Value Units Date High Low HCGQT No results within date range. UHCG No results within date range. HCG, BODY* No results within date range. Lab Value Units Date High Low ABORHD No results within date range. ABSCREEN No results within date range. No results found for: HBA1C No results found for this or any previous visit (from the past 8760 hours). Recent Results (from the past 16742 hours) ECHO Collection Time: 07/07/24 7:55 AM Impression CONCLUSIONS: - Technically difficult exam due to [...] * * * Final * * * Instructions Given to Patient: Instructions located in the after visit summary. Patient given verbal and written preop instructions and voices comprehension and compliance. SIGNATURE: Zenobia Heck APRN.CNP PATIENT NAME: Faiza Lozano DATE: September 25, 2024 TIME: 6:27 PM PAGER/CONTACT #: [facility]02-24-2025 History and physical note* Zenobia Heck APRN.CNP - 09/25/2024 6:27 PM EST Images from the original note were not included. [facility] HISTORY AND PHYSICAL EXAMINATION SERVICE DATE: 09/25/2024 SERVICE TIME: 6:44 PM PRIMARY CARE PHYSICIAN: Verena Rodriguez, VICKI, FENDER MECH[employer]IC Assessment Patient has the following medical conditions which may affect vincent-operative course: Crohn's colitis, with intestinal obstruction (HCC) Assessment: s/p emergency ex lap surgery. Septic shock at that time. Ileostomy plans to be reversed. Bender Activity Status Index: METS: Walk indoors, such as around the house (1.75 METs) Do light work around the house, such as dusting or washing dishes (2.70 METs) Take care of self; that is eating, dressing, bathing, using the toilet (2.75 METs) Walk a block or two on level ground (2.75 METs) Do moderate work around the house, such as vacuuming, sweeping floors, or carrying in groceries (3.50 METs) Do yardwork, such as raking leaves, weeding, or pushing a power mower (4.50 METs) Climb a flight of stairs or walk up a hill (5.50 METs) DASI Score: 23.45 Patient denies any chest pain or undue shortness of breath with the above physical activity. Clinical Frailty Scale: 2. Well STOP-Bang Score: Male patient Denies snoring loudly Denies feeling tired, fatigued, or sleepy during the daytime Has not been observed to stop breathing or choking/gasping during sleep Denies having high blood pressure BMI less than or equal to 35 kg/m^2 Patient 50 years old or younger Does not have a large neck STOP-Bang Score: 1 ANESTHESIA FINDINGS: Intubation History: No history of difficult intubation. No abnormal airway history Significant Anesthesia Considerations: none Airway History: No history of difficult airway No abnormal airway history I - PHYSICAL EVALUATION AIRWAY Patient intubated: No. Tracheostomy tube not present Mallampati: II. TM distance: >3 FB. Neck ROM: full ROM without neurological symptoms. Mouth opening: adequate. Short neck: no. Thick neck: no Peterson present: no Lip Bite Test: II Microretrognathia/Micronagthia/Recessed Chin: No DENTAL Dental findings: poor dentition. II - ANESTHESIA PLAN Anesthetic Plan: other Anesthetic plan additional comments: *[facility]/TCI - anesthesia choice. Beta Carlos Monitoring Plan Post Procedure Analgesic Plan Prepared for Surgery: optimally prepared for surgery. Labs ordered by surgeon and to be done prior to surgery CONSULTS: Patient does not require consults for optimization at this time Planned Anesthetic: other anesthesia choice The Following Tests/Procedures Have Been Initiated: No orders of the defined types were placed in this encounter. This is a virtual visit using Recommendi video visit. It required patient-provider interaction for themedical decision making as documented below. REASON FOR VISIT: Faiza Lozano is a 44 year old male who is scheduled for Procedure(s) with comments: CLOSURE ILEOSTOMY (N/A) - Open end ileostomy reversal at the request of Dr. Amanda Ovalles for consultation. My final recommendation will be communicated back to the requesting physician by way of shared medical record or letter. Subjective The patient has the following: COVID-19 Immunization Status Current Care Gaps Covid-19 Vaccine ( season) Never done No completion, postpone, frequency change, or communication history exists for this topic. CHIEF COMPLAINT: Attention to ileostomy HPI: This 44 year old male with a history of Attention to ileostomy is scheduled for the above procedure and presents to the [facility] for pre-operative examination. Patient reports closure of ileostomy. Denies any chest pain, SOB, fevers or chills, n/v/d. This is a virtual visit. The visit was conducted using Recommendi video visit. It required patient-provider interaction for the medical decision making as documented below. I have communicated my name and active licensure. The patient's identity and physical location wereverified at the time of this visit. Either the patient or their legal videotape sales representative has been informed of the risks and benefits of and alternatives to treatment through a remote evaluation and consents to proceed with the evaluation remotely. REVIEW OF SYSTEMS: General: No weight loss, malaise or fevers. Neurological: No history of TIA's, stroke, [employer] tumor, impaired sensorium, hemiplegia, paraplegia orquadraplegia. No neurological symptoms or problems. Respiratory: No history of current cough or dyspnea, or pneumonia in the past 6 weeks. No history of respiratory/pulmonary symptoms or problems. Cardiovascular: No history of HTN requiring medication, no history of angina, CHF, MT, cardiac surgery or stents. Denies rest pain, gangrene or revascularization/amputation for PVD. No history of cardiovascular symptoms or problems. Negative for: chest pain. GI: See HPI. : No history of dysuria, frequency or incontinence, stones or chronic kidney disease. No difficulty urinating, nocturia > 1 time per night or hematuria. Endocrine: No history of diabetes. Has not taken steroids within the past 30 days. No history of endocrinological symptoms or problems. Hematology: No history of bleeding or clotting disorder. Patient is not taking anti-coagulation or platelet medications. No history of hematological symptoms or problems. Oncology: No history of CA metastasis, chemo within 30 days, or radiotherapy within 90 days. No history of oncological symptoms or problems. Psych: Positive for: depression. Musculoskeletal: Negative for joint pain or swelling, back pain or muscle pain. Skin: Negative for lesions, rash and itching. Implanted Devices: No implanted devices. History reviewed. No pertinent past medical history. PAST SURGICAL HISTORY Procedure Laterality Date PAST SURGICAL HISTORY OF ex lap with ilestomy PICC LINE INSERT/CONSULT 07/11/2024 FAMILY HISTORY Problem Relation Age of Onset Anesthesia Problems No Family History Social History Tobacco Use Smoking status: Never Smokeless tobacco: Never Substance Use Topics Alcohol use: Not Currently Drug use: Not Currently Prior to Admission medications as of 09/25/241842 Medication Sig Last Dose Taking loperamide (IMODIUM) 2 mg cap(s) Take 2 capsules by mouth before meals and at bedtime. Yes OLANZapine (ZYPREXA) 5 mg tablet Take 5 mg by mouth. Yes FLUoxetine (PROZAC) 20 mg capsule Take 40 mg by mouth. Yes No medication comments found. ALLERGIES Allergen Reactions Sulfamethoxazole-Tr* Anaphylaxis Objective PHYSICAL EXAM: (if completed, exam performed via video enabled technology) General: alert and oriented and healthy appearance. Pertinent negatives noted - not distressed. Skin: normal color, no rash or lesions. HEENT: EOM intact. Cardiovascular: Capillary refill < 3 seconds in BL upper extremities. Respiratory: normal breath sounds, no wheezes or crackles. No chest wall deformity or tenderness. Abdomen: soft. Pertinent negatives noted - not distended and not tender. Extremities: no deformity, no edema or tenderness, no joint swelling or clubbing. Neurological: normal cognition and motor skills. PAIN ASSESSMENT: VITALS: Pulse [cap refil < 3 seconds[ Ht 5' 9 [pt rpt[ (1.75m) Wt 180 lb (81.6kg) BMI 26.57 kg/(m^2). Diagnostic tests reviewed for today's visit: Lab Value Units Date High Low HB 11.5 g/dL 07/15/2024 17.0 13.0 HCT 35.4 % 07/15/2024 51.0 39.0 WBC 7.67 k/uL 07/15/2024 11.00 3.70 PLT 355 k/uL 07/15/2024 400 150 NA 138 mmol/L 07/15/2024 144 136 K 4.0 mmol/L 07/15/2024 5.1 3.7 GLUC 79 mg/dL 07/15/2024 99 74 BUN 18 mg/dL 07/15/2024 24 9 CREAT 0.86 mg/dL 07/15/2024 1.22 0.73 PTSEC 14.5 sec 07/07/2024 13.0 9.7 INR 1.3 no uni* 07/07/2024 1.3 0.9 APTT 28.6 sec 07/07/2024 32.4 23.0 ALT 61 U/L 07/15/2024 54 10 AST 32 U/L 07/15/2024 40 14 TBILI 0.5 mg/dL 07/15/2024 1.3 0.2 TSH No results within date range. Lab Value Units Date High Low HCGQT No results within date range. UHCG No results within date range. HCG, BODY* No results within date range. Lab Value Units Date High Low ABORHD No results within date range. ABSCREEN No results within date range. No results found for: HBA1C No results found for this or any previous visit (from the past 8760 hours). Recent Results (from the past 46747 hours) ECHO Collection Time: 07/07/24 7:55 AM Impression CONCLUSIONS: - Technically difficult exam due to [...] * * * Final * * * Instructions Given to Patient: Instructions located in the after visit summary. Patient given verbal and written preop instructions and voices comprehension and compliance. SIGNATURE: Zenobia Heck APRN.CNP PATIENT NAME: Faiza Lozano DATE: September 25, 2024 TIME: 6:27 PM PAGER/CONTACT #: [facility] History of Present illness Narrative* Amanda Ovalles MD - 09/14/2024 9:20 AM EST VIRTUAL VISIT FOLLOW UP I have communicated my name and active licensure. The patient's identity and physical location wereverified at the time of this visit. Either the patient or their legal videotape sales representative has been informed of the risks and benefits of -- and alternatives to -- treatment through a remote evaluation andconsents to proceed with the evaluation remotely. I had a virtual visit with Mr. Lozano today for surgical discussion. He is scheduled for ileostomyclosure on 10/11/2024. Brief History: Faiza Lozano is a 44 year old man with h/o of crohns s/p open ileocolic resection in 2007, now s/p ex lap /resection of ileocolic anastomosis, Washout and drainage of liver/intra-abdominal abscess, Creation of end ileostomy on 07/06/24 for recurrence with perforation. Interval events: No issues- eating, doing physical activity and has gained weight Hasn't started biologics yet Stoma output variable but takes imodium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 Abdominal pain July 05, 2024 8 :31am Crohn's disease July 05, 2024 8 :31am Nausea & vomiting July 05, 2024 8 :31am Weight loss July 05, 2024 8 :31am Abdominal abscess July 19, 2024 9:41am Bowel perforation July 19, 2024 9:41am Crohn's disease July 19, 2024 9:41am Abdominal abscess August 21, 2024 9 :37am Bowel perforation August 21, 2024 9 :37am Crohn's disease August 21, 2024 9 :37am Chief Complaint Admit Date crohn's disease January 25, 2025 2:38 pm Reason for Visit Admit Date Crohn's disease January 25, 2025 2:38 pm Chief Complaint Admit Date crohn's disease January 25, 2025 2:38 pm 4M April 16, 2025 5:55pm Reason for Visit Admit Date Crohn's disease January 25, 2025 2:38 pm Crohn's disease of small and large intestines with complication April 16, 2025 5:55pm PING (generalized anxiety disorder) Septe [facility] 2024 5:55pm Major depressive disorder, single episod e, mild April 16, 2025 5:55pm Family History Relationship Condition Age at Onset Recorded Date/T uma father Unknown Diabetes mellitusUnknownHeart diseaseUnknownHypertensionUnknownNot Specified Diabetes mellitusUnknown Relationship Condition Age at Onset Recorded Date/T uma father Diabetes mellitus Unknown Heart diseaseUnknownDeceasedUnknownHypertensionUnknownNot SpecifiedDiabetes mellitusUnknown Relationship Condition Age at Onset Recorded Date/T uma father Diabetes mellitus Unknown Heart diseaseUnknownDeceasedUnknownHypertensionUnknownmotherDiabetes mellitus Unknown Advance Directives Advance Directive Response Recorded Date/ Time Advance Directives Yes November 01 1:55pm Advance Directive Response Recorded Date/ Time Advance Directives Yes November 01 12:55pm Summary Purpose Additional Source Comments REASON FOR VISIT (unrecogniz ed section and content) ReasonCommentsCrohnsReasonCommentsRadiology CTSpecialtyDiagnoses / Procedures Referred By ContactReferred To ContactCT IMAGING Diagnoses Infection in abdomen (HCC) Procedures CT ABD/PEL W IVCON CT ABD & PELVIS W/[place] [address] [address] [place] [address] [facility] [place] [address] Referral IDStatusReasonStart DateExpiration DateVisits RequestedVisits [id number] Auto-Generated Referral /[id number] / ProceduresReferred By ContactReferred To ContactCT IMAGING Diagnoses Infection in abdomen (HCC) Procedures CT ABD/PEL W IVCON CT ABD & PELVIS W/[place] [address] [address] [place] [address] [facility] [place] [address] ReasonCommentsHospital Follow UpReasonCommentsPost OpReasonCommentsEstablished PatientReasonOnset DateCommentsMed Kohcwk4409/08/2024ReasonCommentsFollow UpReason CommentsPre-Op VisitReasonCommentsPatient UpdateReasonCommentsPatient Question ReasonCommentsNew Med Request Care Teams (unrecognized sec tion and content) Team Status: Active Member Role Status Dates Verena Rodriguez Primary Care Provider Active Team Status: Active Member Role Status Dates Verena Rodriguez Primary Care Provider Active Sta rt: April 04, 2024 Sonja Sellers , DOAttending Provider, Referring ProviderActiveStart: April 04, 2024 Team Status: Active Member Role Status Dates Verena Rodriguez Primary Care Provider Active Sta rt: May 08, 2024 Holly Balderasnorth [facility] centerlucia ProviderActiveStart: May 08, 2024 Team Status: Inactive Member Role Status Dates Verena Rodriguez Primary Care Provider Active Sta rt: May 26, 2024 End: May 26jorge L Ly , DOAttending ProviderActiveStart: May 26, 2024 End: May 26, 2024 Team Status: Active Member Role Status Dates PHYSICIAN NO FAMILY Primary Care Provider Active Team Status: Inactive Member Role Status Dates PHYSICIAN NO FAMILY Primary Care Provider Active Start: December 13, 2023 End: December 12jfine Xena Ly , DOAttending ProviderActiveStart: December 13, 2023 End: December 13, 2023 Team Status: Inactive Member Role Status Dates Sonja L Ly , DO Attending Provider Active St art: January 10, 2024 End: January 10, 2024Verena Ferris [facility] ProviderActiveStart: January 10, 2024 End: January 10, 2024 Team Status: Inactive Member Role Status Dates Sonja L Ly , DO Attending Provider Active St art: January 11, 2024 End: January 11, 2024Verena Ferris [facility] HospitalPrimary Care ProviderActiveStart: January 11, 2024 End: January 11, 2024 Team Status: Active Member Role Status Dates Sonja L Ly , DO Attending Provider, Other Provider Active Start: January 11, 2024 Verena Ferris [facility] Care ProviderActiveStart: January 11, 2024 Team MemberRelationshipSpecialtyStart DateEnd Date Verena Rodriguez NP [address] [place] [phone] PCP [facility]06/02/23 Javy Grimm MD [address] [place] [phone] PCP - [facility]08/19/23 Verena Rodriguez NP [address] [place] [phone] Nurse PractitionerSaint [facility]08/02/22 Verena Rodriguez NP [address] [place] [phone] Nurse PractitionerClar[facility] Centerly Medicine08/19/23Team MemberRelationshipSpecialtyStart DateEnd Date Verena Rodriguez NP [address] [place] [address] PCP - [facility] Poeqgjymbl50/1/23 Javy Grimm MD [address] [place] [phone] PCP - [facility]08/19/23 Verena Rodriguez NP [address] [place] [phone] Nurse PractitionerSaint [facility] Medicine08/02/22 Verena Rodriguez NP [address] [place] [phone] [facility]08/19/23Team MemberRelationshipSpecialtyStart DateEnd Date Verena Rodriguez NP [address] [place] [phone] PCP - [facility] Rdyoshvlof25/1/23 Javy Grimm MD [address] [place] [phone] PCP - [facility]08/19/23 Verena Rodriguez NP [address] [place] [address] Nurse PractitionerSaint [facility]08/02/22 Verena Rodriguez NP [address] [place] [address] Nurse PractitionerSaint [facility]08/19/23Team MemberRelationshipSpecialtyStart DateEnd Date Verena Rdoriguez NP [address] [place] [address] PCP - [place] Yuymqmgycf56/1/23 Javy Grimm MD [address] [place] [address] PCP - [facility]08/19/23 Verena Rodriguez NP [address] [place] [address] Nurse Pract[facility]er[facility]08/02/22 Verena Rodriguez NP [address] [place] [address] Nurse PractitionerSaint [facility]08/19/23Team MemberRelationshipSpecialtyStart DateEnd Date Verena Rodriguez NP [address] [place] [address] PCP - [place] Sbwmfyciqe50/1/23 Javy Grimm MD [address] [place] [address] PCP - [facility]08/19/23 Verena Rodriguez NP [address] [place] [address] Nurse PractitionerFamily Medicine08/02/22 Verena Rodriguez NP [address] [place] [address] Nurse PractitionerFamily Medicine08/19/23Team MemberRelationshipSpecialtyStart DateEnd Date Verena Rodriguez NP [address] [place] [address] PCP - [place] Nqoukyyzuy21/1/23 Javy Grimm MD [address] [place] [address] PCP - Generalmily Medicine08/19/23 Verena Rodriguez NP [address] [place] [address] [facility]08/02/22 Verena Rodriguez NP [address] [place] [address] Nurse [facility]Cl[facility]08/19/23Team MemberRelationshipSpecialtyStart DateEnd Date Verena Rodriguez NP [address] [place] [address] PCP - [place] Xgwidqqzbc67/1/23 Javy Grimm MD [address] [place] [address] PCP - Generalmily Medicine08/19/23 Verena Rodriguez NP [address] [place] [address] [facility]08/02/22 Verena Rodriguez NP [address] [place] [address] [facility]08/19/23Team MemberRelationshipSpecialtyStart DateEnd Date Verena Rodriguez FENDER MECHANIC [address] [place] [address] PCP - [facility]Saint [facility] Mqozblko87/4/24Team MemberRelationshipSpecialtyStart DateEnd Date Verena Rodriguez NP [address] [place] [address] PCP - [place] Boqbkkoppq27/1/23 Javy Grimm MD [address] [place] [address] PCP - [facility]Saint [facility]08/19/23 Verena Rodriguez NP [address] [place] [address] [facility]08/02/22 Verena Rodriguez NP [address] [place] [address] [facility]08/19/23Team MemberRelationshipSpecialtyStart DateEnd Date Verena Rodriguez NP [address] [place] [address] PCP - [place] Ofaktmzhty87/1/23 Javy Grimm MD [address] [place] [address] PCP - [facility]Cl[facility] Centerly [facility]08/19/23 Verena Rodriguez NP [address] [place] [address] Nurse Pract[facility]er[facility]08/02/22 Verena Rodriguez NP [address] [place] [address] [facility]08/19/23Team MemberRelationshipSpecialtyStart DateEnd Date Verena Rodriguez NP [address] [place] [address] PCP - [place] Fyfnvaolkf60/1/23 Javy Grimm MD [address] [place] [address] PCP - [facility]Saint [facility]08/19/23 Verena Rodriguez NP [address] [place] [address] Nurse Pract[facility]08/02/22 Verena Rodriguez NP [address] [place] [address] [facility]Cl[facility]08/19/23Team MemberRelationshipSpecialtyStart DateEnd Date Verena Rodriguez NP [address] [place] [address] PCP - [place] Llkogwqcvv16/1/23 Javy Grimm MD [address] [place] [address] PCP - GeneralFamily Medicine08/19/23 Verena Rodriguez NP [address] [place] [address] Nurse Pract[facility]08/02/22 Verena Rodriguez NP [address] [place] [address] [facility]08/19/23Team MemberRelationshipSpecialtyStart DateEnd Date Verean Rodriguez NP [address] [place] [address] PCP - [place] Svpzzneoao81/1/23 Javy Grimm MD [address] [place] [address] PCP - [facility]08/19/23 Verena Rodriguez NP [address] [place] [address] Nurse Pract[facility]erSaint [facility]08/02/22 Verena Rodriguez NP [address] [place] [address] Nurse PractitionerFamily Medicine08/19/23Team MemberRelationshipSpecialtyStart DateEnd Date Verena Rodriguez NP [address] [place] [address] PCP - [place] Opyjvtihyp75/1/23 Javy Grimm MD [address] [place] [address] PCP - GeneralFamily Medicine08/19/23 Verena Rodriguez NP [address] [place] [address] [facility]Cl[facility]08/02/22 Verena Rodriguez NP [address] [place] [address] Nurse PractitionerFamily Medicine08/19/23Team MemberRelationshipSpecialtyStart DateEnd Date Verena Rodriguez FENDER MECHANIC [address] [place] [address] PCP - GeneralFamily Thorirfj44/4/24 [facility] Cggeozly15/13/24Team MemberRelationshipSpecialtyStart DateEnd Date Verena Rodriguez CNP [address] [place] [address] PCP - GeneralFamily Avhbvkxz16/4/24 [facility] Tkpiprsc76/13/24Team MemberRelationshipSpecialtyStart DateEnd Date Verena Rodriguez NP [address] [place] [address] PCP - [place] Ppbqnuhskj45/1/23 Javy Grimm MD [address] [place] [address] PCP - GeneralFamily Medicine08/19/23 Verena Rodriguez NP [address] [place] [address] Nurse PractitionerFamily Medicine08/02/22 Verena Rodriguez NP [address] [place] [address] Nurse PractitionerFamily Medicine08/19/23Team MemberRelationshipSpecialtyStart DateEnd Date Verena Rodriguez CNP [address] [place] [address] PCP - GeneralFamily Uqdynryr05/4/24 [facility] Qybmznqz30/13/24Team MemberRelationshipSpecialtyStart DateEnd Date Verena Rodriguez NP [address] [place] [address] PCP - [place] Tsqtcazxyp80/1/23 Javy Grimm MD [address] [place] [address] PCP - [facility] Medicine08/19/23 Verena Rodriguez NP [address] [place] [address] [facility]08/02/22 Verena Rodriguez NP [address] [place] [address] [facility]08/19/23Team MemberRelationshipSpecialtyStart DateEnd Date Verena Rodriguez NP [address] [place] [address] PCP - [facility]06/02/23 Javy Grimm MD [address] [place] [address] PCP - [facility]08/19/23 Verena Rodriguez NP [address] [place] [address] [facility]08/02/22 Verena Rodriguez NP [address] [place] [address] [facility]08/19/23Team MemberRelationshipSpecialtyStart DateEnd Date Verena Rodriguez FENDER MECHANIC [address] [place] [address] PCP - GeneralFamily Botizwfl64/4/24 [facility]07/14/24 Team Status: Active Member Role Status Dates NON STAFF Primary Care Provider Active Team Status: Inactive Member Role Status Dates Verena Ferris Michael Primary Care Provider Active Sta rt: July 05, 2024 End: July 05atherine L Ly , DOAttending ProviderActiveStart: July 05, 2024 End: July 05, 2024 Team Status: Inactive Member Role Status Dates Verena Ferris Radhashadiagris Primary Care Provider Active Sta rt: July 19, 2024 End: July 19atherine L Ly , DOAttending ProviderActiveStart: July 19, 2024 End: July 19, 2024 Team Status: Inactive Member Role Status Dates Jayson Washburn Attending Provider Active Star t: July 31, 2024 End: July 31, 2024 Team Status: Inactive Member Role Status Dates Sonja Sellers , DO Attending Provider Active St art: August 21, 2024 End: August 21, 2024NON STAFFPrimary Care ProviderActiveStart: August 21, 2024 End: August 21, 2024Team MemberRelationshipSpecialtyStart DateEnd Date Javy Grimm MD [address] [place] [address] PCP - GeneralFamily Medicine08/19/23 Verena Rodriguez NP [address] [place] [address] Nurse PractitionerFamily Medicine08/02/22 Verena Rodriguez NP [address] [place] [address] Nurse Practitionermily Medicine08/19/23Team MemberRelationshipSpecialtyStart DateEnd Date Javy Grimm MD [address] [place] [address] PCP - GeneralFamily Medicine08/19/23 Verena Rodriguez NP [address] [place] [address] Nurse Practitionermily Medicine08/02/22 Verena Rodriguez NP [address] [place] [address] Nurse [facility]Cl[facility]08/19/23Team MemberRelationshipSpecialtyStart DateEnd Date Javy Grimm MD [address] [place] [address] PCP - GeneralFamily Medicine08/19/23 Verena Rodriguez, VIOLET [address] [place] [address] Nurse [facility]Cl[facility]08/02/22 Verena Rodriguez, VIOLET [address] [place] [address] Nurse Pract[facility]Cl[facility]08/19/23Team MemberRelationshipSpecialtyStart DateEnd Date Verena Rodriguez CNP [address] [place] [address] PCP - GeneralFamily Mzanetkk54/4/24 [facility] Iflfhkdb12/13/24Team MemberRelationshipSpecialtyStart DateEnd Date Verena Rodriguez, FENDER MECHANIC [address] [place] [address] PCP - GeneralFamily Jeabfnuj25/4/24 [facility] Yskmwsin97/13/24Team MemberRelationshipSpecialtyStart DateEnd Date Javy Grimm MD [address] [place] [address] PCP - GeneralFamily Medicine08/19/23 Vreena Rodriguez, VIOLET [address] [place] [address] Nurse PractitionerFamily Medicine08/02/22 Verena Rodriguez, VIOLET [address] [place] [address] Nurse PractitionerFamily Medicine08/19/23Team MemberRelationshipSpecialtyStart DateEnd Date Verena Rodriguez, FENDER MECHANIC [address] [place] [address] PCP - GeneralFamily Eoxoudoi29/4/24 [facility] Mtvgwasr25/13/24Team MemberRelationshipSpecialtyStart DateEnd Date Verena Rodriguez FENDER MECHANIC [address] [place] [address] PCP - GeneralFamily Xbhclcgi49/4/24 [facility] Csnjcmio27/13/24Team MemberRelationshipSpecialtyStart DateEnd Date Verena Rodriguez, FENDER MECHANIC [address] [place] [address] PCP - GeneralFamily Nbomrgqj59/4/24 [facility] Qaxiozvp58/13/24Team MemberRelationshipSpecialtyStart DateEnd Date Javy Grimm MD [address] [place] [address] PCP - GeneralFamily Medicine08/19/23 Verena Rodriguez NP [address] [place] [address] Nurse PractitionerFamily Medicine08/02/22 Verena Rodriguez NP [address] [place] [address] Nurse PractitionerFamily Medicine08/19/23Team MemberRelationshipSpecialtyStart DateEnd Date Javy Grimm MD [address] [place] [address] PCP - GeneralFamily Medicine08/19/23 Verena Rodriguez NP [address] [place] [address] Nurse PractitionerFamily Medicine08/02/22 Verena Rodriguez NP [address] [place] [address] [facility]08/19/23Team MemberRelationshipSpecialtyStart DateEnd Date Javy Grimm MD [address] [place] [address] PCP - [facility]08/19/23 Verena Rodriguez NP [address] [place] [address] [facility]08/02/22 Verena Rodriguez NP [address] [place] [address] [facility]08/19/23 Team Status: Inactive Member Role Status Dates NON STAFF Primary Care Provider Active Start: January 25, 2025 End: January 25atherine Xena Sellers , DOAttending ProviderActiveStart: January 25, 2025 End: January 25, 2025 Team Status: Active Member Role Status Dates Verena Rodriguez NP-C Primary Care Provider Active Team Status: Inactive Member Role Status Dates Verena Rodriguez NP-C Primary Care Provider Active Start: April 16, 2025 End: April 16, 2025Verena Rodrigeuz NP-CAttending ProviderActiveStart: April 16, 2025 End: April 16, 2025Team MemberRelationshipSpecialtyStart DateEnd Date Verena Rodriguez NP [address] [place] [address] PCP - [place] Imuiwluzwp20/1/ Javy Grimm MD [address] [place] [address] PCP - GeneralFamily Medicine08/19/23 Verena RodriguezVIOLET Nurse PractitionerFamily Medicine08/02/22 Verena RodriguezVIOLET Nurse [facility]08/19/23 Goals (unrecognized section and content) Goals may be documented in a n alternate section Source Comments (unrecognize d section and content) In the event this informatio n is protected by the Federal Confidentiality of Alcohol and Drug Abuse Patient Records regulations: The Federal rules restrict any use of the information to criminally investigate or prosecute any alcohol or drug abuse patient.[facility] CampusIn the event this information is protected by the Federal Confidentiality of Alcohol and Drug Abuse Patient Records regulations: The Federal rules restrict any use of the information to criminally investigate or prosecute any alcohol or drug abuse patient.[facility] CampusIn the event this information is protected by the Federal Confidentiality of Alcohol and Drug Abuse Patient Records regulations: The Federal rules restrict any use of the information to criminally investigate or prosecute any alcohol or drug abuse patient.[facility] CampusIn the event this information is protected by the Federal Confidentiality of Alcohol and Drug Abuse Patient Records regulations: The Federal rules restrict any use of the information to criminally investigate or prosecute any alcohol or drug abuse patient.[facility] CampusIn the event this information is protected by the Federal Confidentiality of Alcohol and Drug Abuse Patient Records regulations: The Federal rules restrict any use of the information to criminally investigate or prosecute any alcohol or drug abuse patient.[facility] CampusIn the event this information is protected by the Federal Confidentiality of Alcohol and Drug Abuse Patient Records regulations: The Federal rules restrict any use of the information to criminally investigate or prosecute any alcohol or drug abuse patient.[facility] CampusIn the event this information is protected by the Federal Confidentiality of Alcohol and Drug Abuse Patient Records regulations: The Federal rules restrict any use of the information to criminally investigate or prosecute any alcohol or drug abuse patient.[facility] CampusIn the event this information is protected by the Federal Confidentiality of Alcohol and Drug Abuse Patient Records regulations: The Federal rules restrict any use of the information to criminally investigate or prosecute any alcohol or drug abuse patient.[facility] CampusIn the event this information is protected by the Federal Confidentiality of Alcohol and Drug Abuse Patient Records regulations: The Federal rules restrict any use of the information to criminally investigate or prosecute any alcohol or drug abuse patient.[facility] CampusIn the event this information is protected by the Federal Confidentiality of Alcohol and Drug Abuse Patient Records regulations: The Federal rules restrict any use of the information to criminally investigate or prosecute any alcohol or drug abuse patient.[facility] CampusIn the event this information is protected by the Federal Confidentiality of Alcohol and Drug Abuse Patient Records regulations: The Federal rules restrict any use of the information to criminally investigate or prosecute any alcohol or drug abuse patient.[facility] CampusIn the event this information is protected by the Federal Confidentiality of Alcohol and Drug Abuse Patient Records regulations: The Federal rules restrict any use of the information to criminally investigate or prosecute any alcohol or drug abuse patient.[facility] CampusIn the event this information is protected by the Federal Confidentiality of Alcohol and Drug Abuse Patient Records regulations: The Federal rules restrict any use of the information to criminally investigate or prosecute any alcohol or drug abuse patient.[facility] CampusIn the event this information is protected by the Federal Confidentiality of Alcohol and Drug Abuse Patient Records regulations: The Federal rules restrict any use of the information to criminally investigate or prosecute any alcohol or drug abuse patient.[facility] (unrecognized sect ion and content) No Status Records FoundNo Status Records FoundNo Status Records FoundNo Status Records Found INFORMATION SOURCE (unrecogn ized section and content) DATE CREATED AUTHOR 10/16/2024 [facility] DATE CREATED AUTHOR AUTHOR'S ORGANIZ ATION 10/25/2024 [facility] DATE CREATED AUTHOR AUTHOR'S ORGANIZ ATION 12/15/2024 [facility] DATE CREATED AUTHOR AUTHOR'S ORGANIZ ATION 04/11/2025 [facility] FOR RECORDS PERTAINING TO PATIENTS WHO ARE [...] BE BASED ON THE PRIMARY CLINICAL RECORDS. [facility] [employer] provides no warranty or guarantee of the accuracy or completeness of information in this document.
[2025-08-01 07:54] LABS: Hematocrit 39.9 % (42.0-54.0); Hemoglobin 13.6 g/dL (14.0-18.0); Immature Granulocytes Abs Auto 0.01 10^3/uL (0.00-0.03); Immature Granulocytes Pct Auto 0.1 % (0.0-0.5); Lymphocytes Absolute Auto 1.7 10^3/uL (1.2-3.8); Mean Corpuscular HGB Conc 34.1 g/dL (29.9-35.2); Mean Corpuscular Hemoglobin 30.6 pg (25.9-34.0); Mean Corpuscular Volume 89.7 fL (80.0-94.0); Platelet Count 249 10^3/uL (150-450); Red Blood Count 4.45 10^6/uL (4.70-6.10); White Blood Count 6.9 10^3/uL (4.0-11.0)
[2025-08-01 09:49] LABS: Alanine Aminotransferase 40 U/L (16-63); Albumin Globulin Ratio 1.0; Albumin Level 3.7 g/dL (3.4-5.0); Alkaline Phosphatase 102 U/L (46-116); Anion Gap 13.5; Aspartate Amino Transferase 26 U/L (15-37); Blood Urea Nitrogen 13.0 mg/dL (7.0-18.0); Calcium 8.8 mg/dL (8.5-10.1); Carbon Dioxide 31.8 mmol/L (21.0-32.0); Chloride 104 mmol/L (98-107); Estimated GFR (African America >60 (>=60 mL/min/1.73m^2); Estimated GFR (Non-African Ame >60 (>=60 mL/min/1.73m^2); Globulin 3.7 g/dL; Glucose 99 mg/dL (74-106); Potassium 4.3 mmol/L (3.5-5.1); Sodium 145 mmol/L (136-145); Total Protein 7.4 g/dL (6.4-8.2)
[2025-08-04 01:07] LABS: Calprotectin, Fecal 57 ug/g (0-120)
== END 2025-08-01 07:35 | disposition home or self-care (01) ==
LOC: LAB 07:35
PROVIDERS: Family Provider Family Medicine; PCP Nurse Practitioner; Visit Provider Internal Medicine Gastroenterology
DX: K50.819 Crohn's disease of both small and large intestine with unspecified complications (principal)
CPT/HCPCS: 36415; 80053; 83993; 85025; 86140